=== PATIENT | female | born 1945 | race Caucasian/White ===

== ENCOUNTER 2019-02-14 06:15 | Day surgery (SDC) | payer MEDICARE, OTHER ==
[2019-02-14] MEDS ORDERED: ATORVASTATIN 80 MG TAB PO STA (06:26)
[2019-02-14] MEDS ORDERED: NITROGLYCERIN SL TABS 0.4 MG TAB SUBLINGUAL PRN ×2 (06:26→11:02)
[2019-02-14] MEDS ORDERED: ASPIRIN 325 MG TAB PO STA (06:26)
[2019-02-14] MEDS ORDERED: ALPRAZolam 0.25 MG TAB PO PRN (06:26)
[2019-02-14] MEDS ORDERED: SODIUM CHLORIDE 0.9% 1,000 ML in EMPTY BAG 1 BAG IV ONE (06:26)
[2019-02-14] MEDS ORDERED: ALPRAZolam 0.5 MG TAB PO PRN (06:26)
[2019-02-14 07:13] LABS: Glucose,Whole Blood 188 mg/dL (75-99)
[2019-02-14] MEDS ORDERED: LIDOCAINE 1% INJ 10MG/ML (20 ML MDV) ONE (09:10)
[2019-02-14] MEDS ORDERED: fentaNYL (PF) 50 MCG/ML 2 ML AMP ONE (09:43)
[2019-02-14] MEDS ORDERED: MIDAZOLAM 2 MG/2 ML VIAL IV ONE (09:45)
[2019-02-14] MEDS ORDERED: fentaNYL (PF) 50 MCG/ML 2 ML AMP IV ONE (09:46)
[2019-02-14] MEDS ORDERED: LIDOCAINE 1% INJ 10MG/ML (20 ML MDV) SQ ONE (09:47)
[2019-02-14] MEDS ORDERED: BIVALIRUDIN 250 MG in SODIUM CHLORIDE 0.9% 50 ML IV ONE (10:15)
[2019-02-14] MEDS ORDERED: BIVALIRUDIN BOLUS 250 MG/50 ML IV ONE (10:15)
[2019-02-14] MEDS ORDERED: CLOPIDOGREL 75 MG TAB ONE (10:26)
[2019-02-14] MEDS ORDERED: CLOPIDOGREL 75 MG TAB PO ONE (10:34)
[2019-02-14] MEDS ORDERED: IOPAMIDOL-370 125ML BTL INJ ONE (10:36)
[2019-02-14] MEDS ORDERED: NITROGLYCERIN 1000MCG/10ML SYRINGE INTRACORON ONE (10:36)
[2019-02-14] MEDS ORDERED: hydrALAZINE HCL 20 MG/ML 1 ML VIAL ONE (10:41)
[2019-02-14] MEDS ORDERED: hydrALAZINE HCL 20 MG/ML 1 ML VIAL IV ONE (10:43)
[2019-02-14] MEDS ORDERED: IOPAMIDOL-370 100ML BTL INJ ONE (10:44)
[2019-02-14] MEDS ORDERED: MAG HYDROX/AL HYDROX/SIMETH 30 ML CUP PO PRN (11:02)
[2019-02-14] MEDS ORDERED: RX INFO: IV CONTRAST WAS GIVEN 1 EACH MISC MISCELLANE PRN (11:02)
[2019-02-14] MEDS ORDERED: ATROPINE SULFATE 0.1 MG/ML 10ML SYRINGE IV PRN (11:02)
[2019-02-14] MEDS ORDERED: ZOLPIDEM 5 MG TAB PO PRN (11:02)
[2019-02-14] MEDS ORDERED: SODIUM CHLORIDE 0.9% 1,000 ML IV SCH (11:15)
[2019-02-14 11:34] LABS: Glucose,Whole Blood 161 mg/dL (75-99)
--- NOTE | 2019-02-14 12:21 | PTCA ---
PERCUTANEOUSTRANS CORORONARY ANGIOGRAPHY DATE OF SERVICE: 02/14/2019 PERFORMING PHYSICIAN: Aaron Benavidez MD. PROCEDURE PERFORMED: Successful stenting of the mid left anterior descending artery using 2.75 x 15 mm Xience KATEY which was post-dilated using 2.75 mm NC balloon with an excellent angiographic results and reduction of stenosis from 80% to 0%. INDICATION: This is a pleasant 73-year-old female patient who sees Dr. Chavez in the office as an outpatient with history of coronary artery disease and prior stenting of the RCA in the setting of acute coronary syndrome as well as hypertension and dyslipidemia was experiencing symptoms of chest discomfort. She underwent myocardial perfusion imaging stress test and that revealed an anterior ischemia. Because of that, the heart catheterization was advised. The patient underwent a heart catheterization by Dr. Chavez and that revealed critical disease involving the left anterior descending artery in the midportion. The decision was made toward percutaneous coronary intervention. APPROACH: Right common femoral artery. COMPLICATION: None. LEVEL OF SEDATION: Moderate with a sedation length of 23 minutes. PROCEDURE DESCRIPTION: Please refer to the diagnostic heart catheterization was performed by Dr. Chavez earlier today. Anticoagulation was initiated using Angiomax. Subsequently, I did engage the left main using JL4 guide. I did wire the LAD using a run-through wire. After that, I did PTCA ballooning using 2.5 x 12 mm balloon which was inflated under 14 atmospheres for 20 seconds. Then I deployed 2.75 x 15 mm Xience KATEY where the stent was positioned under fluoroscopy guidance and deployed under 16 atmospheres for 20 seconds. I did after that postdilatation of the stent using 2.75 x 8 mm NC balloon. The balloon was inflated under 20 atmospheres for 20 seconds. The following angiogram showed excellent angiographic results and the procedure was completed without any complication. POSTPROCEDURE MANAGEMENT: 1. Dual anti-platelet therapy. 2. Risk factors modifications. 3. Follow up with the patient. MMODL / IJN: [id number] /
[2019-02-14 14:37] VITALS: BMI 35.3
--- NOTE | 2019-02-14 16:03 | CC ---
CARDIAC CATHETERIZATION REPORT INDICATION: New onset chest discomfort with abnormal stress test involving ischemia involving anterolateral wall. PROCEDURE NOTE: After obtaining informed consent, left heart catheterization and coronary angiogram are performed via the right femoral artery using standard Denita catheters. Patient tolerated the procedure well without any obvious immediate complications. Patient received moderate conscious sedation. Total sedation time was 20 minutes. FINDINGS: 1. HEMODYNAMICS: Left ventricular end-diastolic pressure is 14-16 mm, there is no significant gradient across the aortic valve. 2. LEFT VENTRICULOGRAM: Left ventriculogram is not performed. 3. ANGIOGRAPHIC DATA: LEFT MAIN CORONARY ARTERY: Left main coronary artery appears calcified but is free of significant stenosis. Divides into left anterior descending coronary artery and circumflex coronary artery. Circumflex. coronary artery is a nondominant vessel shows 30%-40% stenosis in the proximal part. LAD is a large vessel that wraps around the apex of the heart, gives off large caliber diagonal branches. The mid LAD shows a 70% to 80% focal stenosis. Diagonal branch appears diffusely diseased. Right coronary artery appears heavily calcified with mild to moderate diffuse disease without any focal stenotic areas. The previously stented area in the right appears patent. CONCLUSION: A 70% to 80% stenosis involving mid left anterior descending artery with mild to moderate diffuse disease. PLAN: Angiographic data was reviewed by Dr. Benavidez, the on-call ip litigation associate who will perform angioplasty of the LAD at this time. MMODL / IJN: [id number] /
--- NOTE | 2019-02-14 16:03 | LTR ---
DATE OF SERVICE: 02/14/2019 RE: Dear Dr. Barrios; I performed cardiac catheterization on . A detailed catheterization note has been forwarded for your records. In brief, her cardiac catheterization revealed patent stent within the mid RCA and a new focal stenosis involving mid LAD. She will undergo angioplasty with stent placement of the LAD stenosis. Thank you for giving me the privilege of participating with this a pleasant lady. Sincerely yours, MD ESTEVAN Moore / WANG: [id number] /
[2019-02-14 20:01] VITALS: RESP 16
[2019-02-14] MEDS ORDERED: glipiZIDE 10 MG TAB PO SCH (21:00)
[2019-02-15 04:15] VITALS: BP 146/69; PULSE 67; TEMP 98.1
[2019-02-15 06:28] LABS: Glucose,Whole Blood 139 mg/dL (75-99)
[2019-02-15] MEDS ORDERED: LISINOPRIL 20 MG TAB PO SCH (09:00)
[2019-02-15] MEDS ORDERED: FUROSEMIDE 40 MG TAB PO SCH (09:00)
[2019-02-15] MEDS ORDERED: ATENOLOL 12.5 MG TAB PO SCH (09:00)
[2019-02-15] MEDS ORDERED: ASPIRIN 81 MG PO SCH (09:00)
[2019-02-15] MEDS ORDERED: LACTOBACILLUS ACIDOPH & BULGAR 1 EACH PACKET PO SCH (09:00)
[2019-02-15] MEDS ORDERED: FERROUS SULFATE 325 MG TAB PO SCH (09:00)
[2019-02-15] MEDS ORDERED: CYANOCOBALAMIN-FA-PYRIDOXINE 1 EACH TAB PO SCH (09:00)
[2019-02-15] MEDS ORDERED: POTASSIUM CHLORIDE ER 10 MEQ TAB.ER.PRT PO SCH (09:00)
[2019-02-15] MEDS ORDERED: CLOPIDOGREL 75 MG TAB PO SCH (11:03)
--- NOTE | 2019-02-15 11:12 | P.DS ---
Providers Attending physician: Mina Chavez Consults: 02/14/19 11:02 Consult Physician Routine Consulting Provider: [facility] Consult Reason/Comments: Post Interventional patient Do you want consulting provider notified?: Already Contacted Primary care physician: Last Barrios [facility] Course: This is a pleasant 73-year-old female who came in yesterday for elective cardiac catheterization secondary to chest discomfort with an abnormal stress test involving the anterolateral wall. Diagnostic cardiac catheterization revealed 30-40% stenosis in the proximal circumflex, 70-80% stenosis in the mid LAD and a heavily calcified RCA with mild to moderate diffuse disease without any focal stenotic areas. The previously stented area RCA was pain. She underwent successful stent placement to the mid LAD. She was initiated on dual antiplatelet therapy in the form of Plavix and aspirin. She is seen and examined in the chair in no acute distress. She denies symptoms of chest discomfort, shortness of breath, dizziness or palpitations. Blood pressure 146/69 heart rate 67 afebrile maintaining oxygen saturation on room air. Repeat EKG this morning reveals left bundle branch block. She is refusing to have her blood drawn this morning. GENERAL: Well-appearing, well-nourished and in no acute distress. NECK: Supple without JVD or thyromegaly. LUNGS: Breath sounds clear to auscultation bilaterally. Respiration equal and unlabored. No wheezes, rales or rhonchi. HEART: Regular rate and rhythm without murmurs, rubs or gallops. S1 and S2 heard. EXTREMITIES: Normal range of motion, no edema. No clubbing or cyanosis. Peripheral pulses intact. Right femoral access site soft, dry, intact, no hematoma, mild ecchymosis and strong distal pulses. ASSESSMENT Coronary artery disease status post successful PCI Hypertension Dyslipidemia Diabetes mellitus PLAN She has been started on Plavix and atorvastatin however she is refusing atorvastatin. Follow up in the office with Dr. Chavez next week. She has been explained the importance of dual anti-platelet therapy. Nurse Practitioner note has been reviewed, I agree with a documented findings and plan of care. Patient was seen and examined. Patient Condition at Discharge: Stable Plan - Discharge Summary Discharge Rx Participant: No New Discharge Prescriptions: New Clopidogrel [Plavix] 75 mg PO DAILY #90 tab Continue glipiZIDE [Glipizide ER] 20 mg PO QAM Ferrous Sulfate [Iron (65 MG Elemental)] 325 mg PO DAILY Furosemide [Lasix] 40 mg PO DAILY Enalapril [Vasotec] 10 mg PO BID Vitamin B Complex 1 each PO DAILY Potassium Chloride 10 meq PO DAILY L.acidoph,Paracasei, B.lactis [Probiotic] 1 each PO DAILY Atenolol 12.5 mg PO QAM Aspirin [Adult Low Dose Aspirin EC] 81 mg PO DAILY Discharge Medication List glipiZIDE [Glipizide ER] 20 mg PO QAM 01/08/14 [History] Aspirin [Adult Low Dose Aspirin EC] 81 mg PO DAILY 02/12/19 [History] Atenolol 12.5 mg PO QAM 02/12/19 [History] Enalapril [Vasotec] 10 mg PO BID 02/12/19 [History] Ferrous Sulfate [Iron (65 MG Elemental)] 325 mg PO DAILY 02/12/19 [History] Furosemide [Lasix] 40 mg PO DAILY 02/12/19 [History] L.acidoph,Paracasei, B.lactis [Probiotic] 1 each PO DAILY 02/12/19 [History] Potassium Chloride 10 meq PO DAILY 02/12/19 [History] Vitamin B Complex 1 each PO DAILY 02/12/19 [History] Clopidogrel [Plavix] 75 mg PO DAILY #90 tab 02/15/19 [Rx] Follow up Appointment(s)/Referral(s): Mina Chavez MD [STAFF PHYSICIAN] - 02/21/19 9:45 am (Tuesday) Patient Instructions/Handouts: *[facility] - After Heart Catheterization - Gas Appliance Adjuster Instructions, Left Heart Catheterization (DC) Discharge Disposition: HOME SELF-CARE
== END 2019-02-15 08:56 | disposition home or self-care (01) ==
LOC: CATHCVL 06:15 → 3SCARD 13:58 → CATHCVL 02-15 08:56
PROVIDERS: ATTEND Internal Medicine Cardiovascular Disease
DX: I25.110 Atherosclerotic heart disease of native coronary artery with unstable angina pectoris (principal); I44.7 Left bundle-branch block, unspecified; I10 Essential (primary) hypertension; E78.5 Hyperlipidemia, unspecified; E11.9 Type 2 diabetes mellitus without complications; Z79.82 Long term (current) use of aspirin; Z79.84 Long term (current) use of oral hypoglycemic drugs; Z79.899 Other long term (current) drug therapy; Z88.0 Allergy status to penicillin; Z88.1 Allergy status to other antibiotic agents; Z88.8 Allergy status to other drugs, medicaments and biological substances; Z87.891 Personal history of nicotine dependence; Z95.5 Presence of coronary angioplasty implant and graft
CPT/HCPCS: 93458; C9600; C1769 ×3; C1887; C1725 ×2; C1894; C1874; J2250; J0360; J2001; J3010; J0583; Q9967 ×2

== ENCOUNTER 2019-06-29 08:28 | Inpatient (IN) | payer MEDICARE, OTHER ==
[2019-06-29] MEDS ORDERED: ASPIRIN 325 MG TAB PO STA (08:32)
[2019-06-29] MEDS ORDERED: NITROGLYCERIN-D5W PMX 50 MG in DEXTROSE/WATER 1 250ML.BAG IV ONE (08:32)
--- NOTE | 2019-06-29 08:43 | ED ---
General Adult HPI - General Stated complaint: SOB Time Seen by Provider: 06/29/19 08:30 Source: patient, EMS, RN notes reviewed, old records reviewed - History of Present Illness Initial comments: 74-year-old female presenting for dyspnea. Patient is in moderate respiratory distress prior arrival. History is limited secondary to respiratory distress. She states that over the past several days she's noticed increased lower e xtremity edema. She describes proximally 12-18 hours of worsening dyspnea. She has orthopnea. She denies cough. Denies fever. Denies pain complaints. - Related Data Home Medications Medication Instructions Recorded Confirmed glipiZIDE [Glipizide ER] 20 mg PO QAM 01/08/14 02/14/19 Aspirin [Adult Low Dose Aspirin EC] 81 mg PO DAILY 02/12/19 02/14/19 Atenolol 12.5 mg PO QAM 02/12/19 02/14/19 Enalapril [Vasotec] 10 mg PO BID 02/12/19 02/14/19 Ferrous Sulfate [Iron (65 MG 325 mg PO DAILY 02/12/19 02/14/19 Elemental)] Furosemide [Lasix] 40 mg PO DAILY 02/12/19 02/14/19 L.acidoph,Paracasei, B.lactis 1 each PO DAILY 02/12/19 02/14/19 [Probiotic] Potassium Chloride 10 meq PO DAILY 02/12/19 02/14/19 Vitamin B Complex 1 each PO DAILY 02/12/19 02/14/19 Previous Rx's Medication Instructions Recorded Clopidogrel [Plavix] 75 mg PO DAILY #90 tab 02/15/19 Allergies Allergy/AdvReac Type Severity Reaction Status Date / Time Corticosteroids Allergy Unknown Unknown Verified 02/14/19 07:03 (Glucocorticoids) azithromycin [From Zithromax] Allergy Anaphylaxis Verified 02/14/19 07:03 banana Allergy Unknown Verified 02/14/19 07:03 carisoprodol [From Soma] Allergy Unknown Verified 02/14/19 07:03 ciprofloxacin [From Cipro] Allergy Unknown Verified 02/14/19 07:03 cortisone [Cortisone] Allergy Unknown Verified 02/14/19 07:03 cyclobenzaprine HCl Allergy Unknown Verified 02/14/19 07:03 [From Flexeril] egg Allergy Unknown Verified 02/14/19 07:03 latex Allergy Unknown Verified 02/14/19 07:03 Latex, Natural Rubber Allergy Unknown Verified 02/14/19 07:03 levofloxacin [From Levaquin] Allergy Anaphylaxis Verified 02/14/19 07:03 Penicillins Allergy Anaphylaxis Verified 02/14/19 07:03 Review of Systems ROS Statement: Those systems with pertinent positive or pertinent negative responses have been documented in the HPI. ROS Other: All systems not noted in ROS Statement are negative. Limitations: ROS unobtainable due to patients medical condition Past Medical History Past Medical History: Chest Pain / Angina, Diabetes Mellitus, Hypertension, Myocardial Infarction ([place]), Osteoarthritis (OA) Additional Past Medical History / Comment(s): arthritis, 01-03-[address]/resp failure/mi post intubation came from [facility] to our [facility] lab[facility] 01-07-14. Last Myocardial Infarction Date:: 01-03-14 History of Any Multi-Drug Resistant Organisms: None Reported Past Surgical History: Heart Catheterization With Stent Additional Past Surgical History / Comment(s): d&c, stent rca 01-07-14 Past Anesthesia/Blood Transfusion Reactions: No Reported Reaction Date of Last Stent Placement:: 2013 Past Psychological History: No Psychological Hx Reported Smoking Status: Former smoker Past Alcohol Use History: None Reported Additional Past Alcohol Use History / Comment(s): started smoking at age 27, smoked 1/2 ppd quit 2002. Past Drug Use History: None Reported - Past Family History Father Family Medical History: Cancer, Diabetes Mellitus Additional Family Medical History / Comment(s): age 70 from lung cancer Mother Additional Family Medical History / Comment(s): age 83 emphysema General Exam General appearance: alert, in no apparent distress Head exam: Present: atraumatic, normocephalic Eye exam: Present: normal appearance, PERRL Neck exam: Present: normal inspection Respiratory exam: Present: respiratory distress, rales, accessory muscle use, decreased breath sounds Cardiovascular Exam: Present: regular rate, normal rhythm GI/Abdominal exam: Present: soft. Absent: distended, tenderness, guarding Extremities exam: Present: pedal edema Neurological exam: Present: alert, oriented X3 Psychiatric exam: Present: anxious Skin exam: Present: warm, dry, intact. Absent: cyanosis, diaphoretic Course Vital Signs 06/29/19 06/29/19 08:45 09:07 Temperature 97.8 F Pulse Rate 98 96 Respiratory 24 28 H Rate Blood Pressure 200/116 169/96 O2 Sat by Pulse 96 99 Oximetry - Reevaluation(s) Reevaluation #1: 06/29/19 10:04 Much improved respiratory status, again no chest pain at any point in the past 24 hours or while in the emergency department. Reevaluation #2: 06/29/19 10:05 Case discussed with cardiology, Dr. Art, agree with heparin and nitroglyceri n. EKG Findings - EKG Comments: EKG Findings:: EKG: Sinus tachycardia, left bundle branch block, history of left bundle branch block, rate of 114, OR interval 156, QRS duration 136, QTC 476, precordial ST segment elevation in the setting of left bundle branch block Medical Decision Making - Medical Decision Making 74 present with dyspnea, history concerning for CHF. Patient has bilateral Rales on exam. She is afebrile with no cough. She has pitting edema in the lower extremities. She is placed on BiPAP for work of breathing and hypoxia. She has improved respiratory status with BiPAP. She has an EKG showing a left bundle branch block with history of left bundle branch block. She has leukocytosis white count of 15 and x-ray showing pneumonia versus CHF. She is initiated on antibiotics she is declining all antibiotics with the exception of doxycycline. I had initially ordered Levaquin and she refuses medication she states she has multiple drug ALLERGIES but is uncertain of symptoms during these reactions. She's given aspirin, Lasix. She started on nitroglycerin and heparin in the emergency department discussed case with Dr. Barrios and with Dr. Art. She will be admitted for respiratory support, treatment of pneumonia and CHF and trending of her elevated troponin at 0.45. She has no active chest pain. COVID test pending. Diagnosis: CHF, NSTEMI, PNA - Lab Data Result diagrams: 06/29/19 09:00 06/29/19 09:00 Lab Results 06/29/19 06/29/19 06/29/19 Range/Units 09:00 09:00 09:00 WBC 15.8 H (3.8-10.6) k/uL RBC 4.26 (3.80-5.40) m/uL Hgb 12.3 (11.4-16.0) gm/dL Hct 38.1 (34.0-46.0) % MCV 89.4 (80.0-100.0) fL MCH 28.8 (25.0-35.0) pg MCHC 32.2 (31.0-37.0) g/dL RDW 12.9 (11.5-15.5) % Plt Count 202 (150-450) k/uL Neutrophils % 69 % Lymphocytes % 18 % Monocytes % 8 % Eosinophils % 2 % Basophils % 0 % Neutrophils # 10.9 H (1.3-7.7) k/uL Lymphocytes # 2.9 (1.0-4.8) k/uL Monocytes # 1.2 H (0-1.0) k/uL Eosinophils # 0.4 (0-0.7) k/uL Basophils # 0.0 (0-0.2) k/uL PT 10.4 (9.0-12.0) sec INR 1.0 (<1.2) APTT 21.0 L (22.0-30.0) sec Sodium 130 L (137-145) mmol/L Potassium 6.0 H (3.5-5.1) mmol/L Chloride 99 (98-107) mmol/L Carbon Dioxide 18 L (22-30) mmol/L Anion Gap 13 mmol/L BUN 29 H (7-17) mg/dL Creatinine 0.96 (0.52-1.04) mg/dL Est GFR (CKD-EPI)AfAm 67 (>60 ml/min/1.73 sqM) Est GFR (CKD-EPI)NonAf 58 (>60 ml/min/1.73 sqM) Glucose 299 H (74-99) mg/dL Plasma Lactic Acid Jona (0.7-2.0) mmol/L Calcium 8.9 (8.4-10.2) mg/dL Magnesium 2.0 (1.6-2.3) mg/dL Total Bilirubin 1.8 H (0.2-1.3) mg/dL AST 80 H (14-36) U/L ALT 38 H (4-34) U/L Alkaline Phosphatase 101 (38-126) U/L Troponin I (0.000-0.034) ng/mL NT-Pro-B Natriuret Pep pg/mL Total Protein 7.3 (6.3-8.2) g/dL Albumin 4.3 (3.5-5.0) g/dL 06/29/19 06/29/19 06/29/19 Range/Units 09:00 09:00 09:00 WBC (3.8-10.6) k/uL RBC (3.80-5.40) m/uL Hgb (11.4-16.0) gm/dL Hct (34.0-46.0) % MCV (80.0-100.0) fL MCH (25.0-35.0) pg MCHC (31.0-37.0) g/dL RDW (11.5-15.5) % Plt Count (150-450) k/uL Neutrophils % % Lymphocytes % % Monocytes % % Eosinophils % % Basophils % % Neutrophils # (1.3-7.7) k/uL Lymphocytes # (1.0-4.8) k/uL Monocytes # (0-1.0) k/uL Eosinophils # (0-0.7) k/uL Basophils # (0-0.2) k/uL PT (9.0-12.0) sec INR (<1.2) APTT (22.0-30.0) sec Sodium (137-145) mmol/L Potassium (3.5-5.1) mmol/L Chloride (98-107) mmol/L Carbon Dioxide (22-30) mmol/L Anion Gap mmol/L BUN (7-17) mg/dL Creatinine (0.52-1.04) mg/dL Est GFR (CKD-EPI)AfAm (>60 ml/min/1.73 sqM) Est GFR (CKD-EPI)NonAf (>60 ml/min/1.73 sqM) Glucose (74-99) mg/dL Plasma Lactic Acid Jona 1.7 (0.7-2.0) mmol/L Calcium (8.4-10.2) mg/dL Magnesium (1.6-2.3) mg/dL Total Bilirubin (0.2-1.3) mg/dL AST (14-36) U/L ALT (4-34) U/L Alkaline Phosphatase (38-126) U/L Troponin I 0.450 H* (0.000-0.034) ng/mL NT-Pro-B Natriuret Pep 2220 pg/mL Total Protein (6.3-8.2) g/dL Albumin (3.5-5.0) g/dL Critical Care Time Critical Care Time: Yes Total Critical Care Time: 35 Disposition Clinical Impression: Congestive heart failure, Community acquired pneumonia, NSTEMI (non-ST elevated myocardial infarction) Disposition: [facility] Condition: Serious Is patient prescribed a controlled substance at d/c from ED?: No Referrals: Last Barrios MD [Primary Care Provider] - 1-2 days Decision to Admit Reason: Admit from EC Decision Date: 06/29/19 Decision Time: 10:11
[2019-06-29 09:12] LABS: Basophils % (A) 0 %; Eosinophils # (A) 0.4 k/uL (0-0.7); Eosinophils % (A) 2 %; HCT 38.1 % (34.0-46.0); HGB 12.3 gm/dL (11.4-16.0); Lymphocytes # (A) 2.9 k/uL (1.0-4.8); Lymphocytes % (A) 18 %; MCH 28.8 pg (25.0-35.0); MCHC 32.2 g/dL (31.0-37.0); MCV 89.4 fL (80.0-100.0); Mean Platelet Volume 9.9; Monocytes # (A) 1.2 k/uL (0-1.0); Monocytes % (A) 8 %; Neutrophils # (A) 10.9 k/uL (1.3-7.7); Neutrophils % (A) 69 %; Platelet Count 202 k/uL (150-450); RBC 4.26 m/uL (3.80-5.40); RDW 12.9 % (11.5-15.5); WBC 15.8 k/uL (3.8-10.6)
[2019-06-29 09:31] LABS: Albumin 4.3 g/dL (3.5-5.0); Calcium 8.9 mg/dL (8.4-10.2); Total Bilirubin 1.8 mg/dL (0.2-1.3); Total Protein 7.3 g/dL (6.3-8.2)
--- NOTE | 2019-06-29 09:41 | XR ---
EXAMINATION TYPE: XR chest 1V portable DATE OF EXAM: 06/29/2019 COMPARISON: Prior chest x-ray 01/09/2014 HISTORY: Difficulty breathing TECHNIQUE: Single frontal view of the chest is obtained. FINDINGS: Patient is rotated, there are overlying cardiac leads and low lung volumes. Aorta is dense . Heart is likely within normal limits. There is no evident pneumothorax or pleural effusion. Strand- like areas of increased attenuation are present, question some patchy bibasilar increased density. IMPRESSION: Difficult to exclude an underlying pneumonia. Consider follow-up PA and lateral chest x- ray for better evaluation.
[2019-06-29] MEDS ORDERED: FUROSEMIDE 10 MG/ML 4 ML VIAL IV STA (09:42)
[2019-06-29 09:48] LABS: Prothrombin Time 10.4 sec (9.0-12.0)
[2019-06-29] MEDS: LEVOFLOXACIN 500MG-D5W PMX 500 MG in DEXTROSE/WATER 1 100ML.BAG IVPB STA ×2 (09:52→09:58)
[2019-06-29] MEDS ORDERED: HEPARIN SODIUM,PORCINE 5,000 UNIT/ML 1 ML VIAL IV PRN (09:56)
[2019-06-29] MEDS ORDERED: HEPARIN SODIUM,PORCINE 5,000 UNIT/ML 1 ML VIAL IV ONE (09:56)
[2019-06-29] MEDS ORDERED: DOXYCYCLINE 100 MG in SODIUM CHLORIDE 0.9% 100 ML IVPB ONE (10:00)
[2019-06-29] MEDS ORDERED: ACETAMINOPHEN TAB 325 MG TAB PO PRN (10:06)
[2019-06-29] MEDS ORDERED: NALOXONE 0.4 MG/ML 1 ML VIAL IV PRN (10:06)
[2019-06-29] MEDS: HEPARIN SOD,PORK IN 0.45% NACL 25,000 UNIT in 0.45% NACL 1 250ML.BAG IV SCH (10:21)
[2019-06-29] MEDS ORDERED: ATENOLOL 25 MG TAB PO SCH (12:15)
[2019-06-29] MEDS ORDERED: SODIUM POLYSTYRENE SULFONATE 15 GM/60 ML BOTTLE PO STA (12:18)
[2019-06-29] MEDS ORDERED: POTASSIUM CHLORIDE ER 10 MEQ TAB.ER.PRT PO SCH (12:30)
[2019-06-29] MEDS: hydrALAZINE HCL 50 MG TAB PO SCH ×4 (12:37→21:51)
[2019-06-29] MEDS ORDERED: LISINOPRIL 20 MG TAB PO SCH (13:00)
[2019-06-29] MEDS: glipiZIDE 10 MG TAB PO SCH ×2 (13:23→16:58)
[2019-06-29] MEDS: CLOPIDOGREL 75 MG TAB PO SCH (13:24)
[2019-06-29] MEDS: METOPROLOL TARTRATE 25 MG TAB PO SCH ×3 (13:25→21:51)
--- NOTE | 2019-06-29 14:24 | P.CRDCN ---
History of Present Illness History of present illness: HISTORY OF PRESENTING ILLNESS This is a pleasant 74-year-old female past medical history significant for coronary artery disease with myocardial infarction and PCI of the RCA then PCI of the mid LAD in February 2019, diabetes mellitus, hypertension, left bundle branch block, ischemic cardiomyopathy, chronic systolic heart failure and arthritis. She follows in the office with Dr. Chavez. We have been asked to see in consultation for shortness of breath and elevated troponin. She states she woke up at 0330 with significant shortness of breath. However she was able to get through it by drinking a cup of tea. Then again at 0730 she woke up acutely short of breath. The shortness of breath felt similar to how she felt when she had an IA in 2013. She had no chest pain, dizziness or palpitations. On arrival to ED bipap was placed and she states she started feeling better. Currently she is maintaining oxygen saturation on nasal cannula and feels quite comfortable. She was also initiated on nitro and heparin infusions. Most recent echocardiogram in the office 2014 reveals impaired LV systolic function with EF 40% with inferior hypokinesia. DIAGNOSTICS EKG reveals left bundle branch block with underlying sinus mechanism. Heart rate 114. Chest xray patchy bibasliar increased density and increased attenuation. Laboratory reviewed, WBC 15.8, hgb 12.3, plt 202, sodium 130, potassium 6.0, creatinine 0.96, total billirubin 1.8, AST 80, ALT 38, troponin 0.450, NTproBNP 2220 and COVID-19 negative. Current cardiac medications include enalapril 10 mg BID, plavix 75 mg daily, atenolol 12.5 daily, potassium 10 MEQ daily and lasix 40 mg daily. REVIEW OF SYSTEMS At the time of my exam: CONSTITUTIONAL: Denies fever or chills. CARDIOVASCULAR: Denies chest pain, shortness of breath, orthopnea, PND or palpitations. RESPIRATORY: Denies cough. GASTROINTESTINAL: Denies abdominal pain, diarrhea, constipation, nausea or vomiting. MUSCULOSKELETAL: Denies myalgias. NEUROLOGIC: Denies numbness, tingling or weakness. ENDOCRINE: Denies fatigue, weight change, polydipsia or polyurina. GENITOURINARY: Denies burning, hematuria or urgency with micturation. HEMATOLOGIC: Denies history of anemia or bleeding. PHYSICAL EXAMINATION Blood pressure 156/70 heart rate 89 afebrile and maintaining oxygen saturation on nasal cannula. CONSTITUTIONAL: No apparent distress. HEENT: Head is normocephalic. Pupils are equal, round. Sclerae anicteric. Mucous membranes of the mouth are moist. No JVD. No carotid bruit. CHEST EXAMINATION: Bibasliar rales, no wheezes or rhonchi. No chest wall tenderness is noted on palpation or with deep breathing. HEART EXAMINATION: Regular rate and rhythm. S1, S2 heard. Systolic ejection murmur at the left sternal border, no gallops or rub. ABDOMEN: Soft, nontender. Positive bowel sounds. EXTREMITIES: 2+ peripheral pulses, 1+ bilateral lower extremity pitting edema and no calf tenderness. NEUROLOGIC EXAMINATION: Patient is awake, alert and oriented x3. ASSESSMENT Acute on chronic systolic heart failure secondary to myocardial ischemia Non-ST elevated myocardial infarction, asymptomatic and improved with oxygen Hyperkalemia Leukocytosis Hypertensive urgency Ischemic cardiomyopathy Coronary artery disease s/p recent PCI of the mid LAD 02/2019. Maintained on dual anti-platelet therapy and she is compliant Diabetes mellitus Obesity, BMI 36 PLAN Given kaexylate 30 gm PO now x1. Repeat potassium in 4 hours. Repeat BMP in the morning. Hold enalapril. Initiate hydralazine 50 mg TID and change beta chely to lopressor 25 mg BID. Resume aspirin and plavix as previously ordered. Increase lasix to TID dosing. Continue heparin and nitroglycerin infusion. Repeat 2D echocardiogram and doppler study to assess cardiac structure and funct ion. Discussed with the patient the need for possible cardiac catheterization, further decision will be made tomorrow. She is currently asymptomatic and stable. Thank you kindly for this consultation. Nurse Practitioner note has been reviewed, I agree with a documented findings and plan of care. Patient was seen and examined. 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 Last Myocardial Infarction Date:: 01-03-14 History of Any Multi-Drug Resistant Organisms: None Reported Past Surgical History: Heart Catheterization With Stent Additional Past Surgical History / Comment(s): d&c, stent rca 01-07-14 Past Anesthesia/Blood Transfusion Reactions: No Reported Reaction Date of Last Stent Placement:: 2013 Past Psychological History: No Psychological Hx Reported Smoking Status: Former smoker Past Alcohol Use History: None Reported Additional Past Alcohol Use History / Comment(s): started smoking at age 27, smoked 1/2 ppd quit 2002. Past Drug Use History: None Reported - Past Family History Father Family Medical History: Cancer, Diabetes Mellitus Additional Family Medical History / Comment(s): age 70 from lung cancer Mother Additional Family Medical History / Comment(s): age 83 emphysema Medications and Allergies Home Medications Medication Instructions Recorded Confirmed Type glipiZIDE [Glipizide ER] 20 mg PO QAM 01/08/14 06/29/19 History Atenolol 12.5 mg PO DAILY 02/12/19 06/29/19 History Enalapril [Vasotec] 10 mg PO BID 02/12/19 06/29/19 History Ferrous Sulfate [Iron (65 MG 325 mg PO DAILY 02/12/19 06/29/19 History Elemental)] Furosemide [Lasix] 40 mg PO DAILY 02/12/19 06/29/19 History Potassium Chloride 10 meq PO DAILY 02/12/19 06/29/19 History Clopidogrel [Plavix] 75 mg PO DAILY #90 tab 02/15/19 06/29/19 Rx Cholecalciferol [Vitamin D3] 2,000 unit PO DAILY@1200 06/29/19 06/29/19 History Cyanocobalamin (Vitamin B-12) 1,000 mcg PO DAILY 06/29/19 06/29/19 History [Vitamin B-12] Allergies Allergy/AdvReac Type Severity Reaction Status Date / Time Corticosteroids Allergy Unknown Unknown Verified 06/29/19 10:45 (Glucocorticoids) azithromycin [From Zithromax] Allergy Anaphylaxis Verified 06/29/19 10:45 banana Allergy Unknown Verified 06/29/19 10:45 carisoprodol [From Soma] Allergy Unknown Verified 06/29/19 10:45 ciprofloxacin [From Cipro] Allergy Unknown Verified 06/29/19 10:45 cortisone [Cortisone] Allergy Unknown Verified 06/29/19 10:45 cyclobenzaprine HCl Allergy Unknown Verified 06/29/19 10:45 [From Flexeril] egg Allergy Unknown Verified 06/29/19 10:45 latex Allergy Unknown Verified 06/29/19 10:45 Latex, Natural Rubber Allergy Unknown Verified 06/29/19 10:45 levofloxacin [From Levaquin] Allergy Anaphylaxis Verified 06/29/19 10:45 Penicillins Allergy Anaphylaxis Verified 06/29/19 10:45 Physical Exam Vitals: Vital Signs Temp Pulse Resp BP Pulse Ox 06/29/19 10:24 98.0 F 83 18 151/66 100 06/29/19 09:07 96 28 H 169/96 99 06/29/19 08:45 97.8 F 98 24 200/116 96 Intake and Output 06/28/19 06/29/19 06/29/19 22:59 06:59 14:59 Other: Weight 83.915 kg Results 06/29/19 09:00 06/29/19 09:00 Cardiac Enzymes 06/29/19 06/29/19 Range/Units 09:00 09:00 AST 80 H (14-36) U/L Troponin I 0.450 H* (0.000-0.034) ng/mL Coagulation 06/29/19 Range/Units 09:00 PT 10.4 (9.0-12.0) sec APTT 21.0 L (22.0-30.0) sec CBC 06/29/19 Range/Units 09:00 WBC 15.8 H (3.8-10.6) k/uL RBC 4.26 (3.80-5.40) m/uL Hgb 12.3 (11.4-16.0) gm/dL Hct 38.1 (34.0-46.0) % Plt Count 202 (150-450) k/uL Comprehensive Metabolic Panel 06/29/19 Range/Units 09:00 Sodium 130 L (137-145) mmol/L Potassium 6.0 H (3.5-5.1) mmol/L Chloride 99 (98-107) mmol/L Carbon Dioxide 18 L (22-30) mmol/L BUN 29 H (7-17) mg/dL Creatinine 0.96 (0.52-1.04) mg/dL Glucose 299 H (74-99) mg/dL Calcium 8.9 (8.4-10.2) mg/dL AST 80 H (14-36) U/L ALT 38 H (4-34) U/L Alkaline Phosphatase 101 (38-126) U/L Total Protein 7.3 (6.3-8.2) g/dL Albumin 4.3 (3.5-5.0) g/dL Current Medications Generic Name Dose Route Start Last Admin Trade Name Freq PRN Reason Stop Dose Admin Acetaminophen 650 mg 06/29/19 10:06 Tylenol Tab PO Q6HR PRN Mild Pain or Fever > 100.5 Aspirin 81 mg 06/30/19 09:00 Aspirin PO DAILY [facility] Atenolol 12.5 mg 06/29/19 12:15 Tenormin PO DAILY [facility] Clopidogrel Bisulfate 75 mg 06/29/19 12:15 Plavix PO DAILY [facility] Furosemide 40 mg 06/29/19 21:00 Lasix IV Q12HR [facility] Heparin Sodium (Porcine) 0 unit 06/29/19 09:56 Heparin IV PER PROTOCOL PRN Low PTT Protocol Nitroglycerin/Dextrose 50 mg/ 250 mls @ 1.5 mls/hr 06/29/19 08:32 06/29/19 09:04 IV Solution IV 06/30/19 08:31 5 mcg/min .Q24H ONE 1.5 mls/hr Administration Protocol 5 MCG/MIN Heparin Sodium/Sodium Chloride 250 mls @ 9.986 mls/hr 06/29/19 10:00 06/29/19 10:21 25,000 unit/ Sodium Chloride IV 11.9 units/kg/hr .Q24H GARRY 9.986 mls/hr Administration Protocol 11.9 UNITS/KG/HR Doxycycline Hyclate 100 mg/ 100 mls @ 100 mls/hr 06/29/19 21:00 Sodium Chloride IVPB Q12HR [facility] Naloxone HCl 0.2 mg 06/29/19 10:06 Narcan IV Q2M PRN Opioid Reversal Non-Formulary Medication 20 mg 06/29/19 12:15 Glipizide [Glipizide Er] PO QAM [facility] Intake and Output 06/28/19 06/29/19 06/29/19 22:59 06:59 14:59 Other: Weight 83.915 kg Patient Weight 06/30/19 06:59 Weight 83.915 kg 06/29/19 09:00 06/29/19 09:00
--- NOTE | 2019-06-29 15:32 | ECHOF ---
Referral Reason:cp, elev trop MEASUREMENTS -------- HEIGHT: 154.9 cm WEIGHT: 83.9 kg BP: RVIDd: 2.0 cm (< 3.3) IVSd: 0.7 cm (0.6 - 1.1) LVIDd: 4.3 cm (3.9 - 5.3) LVPWd: 1.0 cm (0.6 - 1.1) IVSs: 1.1 cm LVIDs: 3.4 cm LVPWs: 0.9 cm LAESV Index (A-L): 33.65 ml/m MV E Rafael: 1.13 m/s MV DecT: 163 ms MV A Rafael: 1.10 m/s MV E/A Ratio: 1.02 RAP: 5.00 mmHg RVSP: 45.65 mmHg FINDINGS -------- Sinus rhythm. This was a technically adequate study. The left ventricular size is normal. There is mild concentric left ventricular hypertrophy. There is severe global hypokinesis of LV . Overall left ventricular systolic function is severely impair ed with, an EF between 25 - 30 %. The right ventricle is normal in size. LA is moderately dilated 34-39 ml/m2 The right atrial size is normal. The aortic valve was not well visualized. Moderate mitral annular calcification present. Elwoiran-[id number] mitral regurgitation is present. The tricuspid valve appears structurally normal. Moderate tricuspid regurgitation present. There is mild to moderate pulmonary hypertension. The right ventricular systolic pressure, as measured by Doppler, is 45.65mmHg. There is no pulmonic regurgitation present. The aortic root size is normal. IVC Not well visulized. There is a small, generalized pericardial effusion present. CONCLUSIONS -------- 1. There is mild concentric left ventricular hypertrophy. 2. There is severe global hypokinesis of LV . 3. Overall left ventricular systolic function is severely impaired with, an EF between 25 - 30 %. 4. LA is moderately dilated 34-39 ml/m2 5. The aortic valve was not well visualized. 6. Moderate mitral annular calcification present. 7. Eblibvkz-tz-jmqqft mitral regurgitation is present. 8. Moderate tricuspid regurgitation present. 9. There is mild to moderate pulmonary hypertension. 10. There is a small, generalized pericardial effusion present. JINRIKISHA DRIVER: Sylvia Gonzalez RDCS
[2019-06-29] MEDS: FUROSEMIDE 10 MG/ML 4 ML VIAL IV SCH ×2 (15:39→23:07)
[2019-06-29 20:35] LABS: Glucose,Whole Blood 151 mg/dL (75-99)
[2019-06-29] MEDS ORDERED: FUROSEMIDE 10 MG/ML 4 ML VIAL IV SCH (21:00)
--- NOTE | 2019-06-29 21:38 | P.HPIM ---
History of Present Illness H&P Date: 06/29/19 Chief Complaint: SOB Shortness of breath for the last 2 days. She did actually eat excessive salt for . His could be a culprit. She is fairly compliant with her medication. But given her inability to breathe she was appropriately admitted after having signs of congestive heart failure versus pneumonia. She states no fever or chills. No cough but more dyspnea and edema. Review of Systems Constitutional: Denies chills, Denies fever Eyes: denies blurred vision, denies pain Ears, nose, mouth and throat: Denies headache, Denies sore throat Cardiovascular: Reports dyspnea on exertion, Reports edema Respiratory: Denies cough Gastrointestinal: Denies abdominal pain, Denies diarrhea, Denies nausea, Denies vomiting Genitourinary: Denies dysuria, Denies hematuria Musculoskeletal: Denies myalgias Past Medical History Past Medical History: Chest Pain / Angina, Diabetes Mellitus, Hypertension, Myocardial Infarction ([place]), Osteoarthritis (OA) Additional Past Medical History / Comment(s): arthritis, 01-03-14 cardiac arrest/resp failure/mi post intubation came from [facility] 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 Last Myocardial Infarction Date:: 01-03-14 History of Any Multi-Drug Resistant Organisms: None Reported Past Surgical History: Heart Catheterization With Stent Additional Past Surgical History / Comment(s): d&c, stent rca 01-07-14 Past Anesthesia/Blood Transfusion Reactions: No Reported Reaction Date of Last Stent Placement:: 2013 Past Psychological History: No Psychological Hx Reported Smoking Status: Former smoker Past Alcohol Use History: None Reported Additional Past Alcohol Use History / Comment(s): started smoking at age 27, smoked 1/2 ppd quit 2002. Past Drug Use History: None Reported - Past Family History Father Family Medical History: Cancer, Diabetes Mellitus Additional Family Medical History / Comment(s): age 70 from lung cancer Mother Additional Family Medical History / Comment(s): age 83 emphysema Medications and Allergies Home Medications Medication Instructions Recorded Confirmed Type glipiZIDE [Glipizide ER] 20 mg PO QAM 01/08/14 06/29/19 History Atenolol 12.5 mg PO DAILY 02/12/19 06/29/19 History Enalapril [Vasotec] 10 mg PO BID 02/12/19 06/29/19 History Ferrous Sulfate [Iron (65 MG 325 mg PO DAILY 02/12/19 06/29/19 History Elemental)] Furosemide [Lasix] 40 mg PO DAILY 02/12/19 06/29/19 History Potassium Chloride 10 meq PO DAILY 02/12/19 06/29/19 History Clopidogrel [Plavix] 75 mg PO DAILY #90 tab 02/15/19 06/29/19 Rx Cholecalciferol [Vitamin D3] 2,000 unit PO DAILY@1200 06/29/19 06/29/19 History Cyanocobalamin (Vitamin B-12) 1,000 mcg PO DAILY 06/29/19 06/29/19 History [Vitamin B-12] Allergies Allergy/AdvReac Type Severity Reaction Status Date / Time Corticosteroids Allergy Unknown Unknown Verified 06/29/19 10:45 (Glucocorticoids) azithromycin [From Zithromax] Allergy Anaphylaxis Verified 06/29/19 10:45 banana Allergy Unknown Verified 06/29/19 10:45 carisoprodol [From Soma] Allergy Unknown Verified 06/29/19 10:45 ciprofloxacin [From Cipro] Allergy Unknown Verified 06/29/19 10:45 cortisone [Cortisone] Allergy Unknown Verified 06/29/19 10:45 cyclobenzaprine HCl Allergy Unknown Verified 06/29/19 10:45 [From Flexeril] egg Allergy Unknown Verified 06/29/19 10:45 latex Allergy Unknown Verified 06/29/19 10:45 Latex, Natural Rubber Allergy Unknown Verified 06/29/19 10:45 levofloxacin [From Levaquin] Allergy Anaphylaxis Verified 06/29/19 10:45 Penicillins Allergy Anaphylaxis Verified 06/29/19 10:45 Physical Exam Vitals: Vital Signs Temp Pulse Pulse Pulse Resp BP BP 06/29/19 16:00 97.9 F 138 H 144 H 18 123/64 06/29/19 12:58 98 F 89 20 156/70 06/29/19 10:24 98.0 F 83 18 151/66 06/29/19 09:07 96 28 H 169/96 06/29/19 08:45 97.8 F 98 24 200/116 Pulse Ox 06/29/19 16:00 100 06/29/19 12:58 100 06/29/19 10:24 100 06/29/19 09:07 99 06/29/19 08:45 96 Intake and Output 06/29/19 06/29/19 06/29/19 06:59 14:59 22:59 Intake Total 66.074 Output Total 500 Balance -433.926 Intake: Intake, IV Titration 66.074 Amount Heparin Sod,Pork in 0.45% 66.074 NaCl 25,000 unit In 0.45 % NaCl 1 250ml.bag @ 11.9 UNITS/KG/HR 9.986 mls/hr IV .Q24H [facility] Rx#: [id number] Output: Urine 500 Other: Weight 83.915 kg 85.6 kg - Constitutional General appearance: no acute distress - EENT Eyes: EOMI - Neck Neck: no lymphadenopathy - Respiratory Respiratory: bilateral: diminished - Cardiovascular Rhythm: regular Abnormal Heart Sounds: no S3 Gallop - Gastrointestinal General gastrointestinal: soft, no tenderness - Musculoskeletal Musculoskeletal: strength equal bilaterally - Psychiatric Psychiatric: A&O x's 3, appropriate affect, intact judgment & insight Results CBC & Chem 7: 06/29/19 09:00 06/29/19 17:50 Labs: Abnormal Lab Results - Last 24 Hours (Table) 06/29/19 06/29/19 06/29/19 Range/Units 09:00 09:00 09:00 WBC 15.8 H (3.8-10.6) k/uL Neutrophils # 10.9 H (1.3-7.7) k/uL Monocytes # 1.2 H (0-1.0) k/uL APTT 21.0 L (22.0-30.0) sec Sodium 130 L (137-145) mmol/L Potassium 6.0 H (3.5-5.1) mmol/L Carbon Dioxide 18 L (22-30) mmol/L BUN 29 H (7-17) mg/dL Glucose 299 H (74-99) mg/dL POC Glucose (mg/dL) (75-99) mg/dL Total Bilirubin 1.8 H (0.2-1.3) mg/dL AST 80 H (14-36) U/L ALT 38 H (4-34) U/L Troponin I (0.000-0.034) ng/mL 06/29/19 06/29/19 06/29/19 Range/Units 09:00 15:10 15:10 WBC (3.8-10.6) k/uL Neutrophils # (1.3-7.7) k/uL Monocytes # (0-1.0) k/uL APTT 41.9 H (22.0-30.0) sec Sodium (137-145) mmol/L Potassium (3.5-5.1) mmol/L Carbon Dioxide (22-30) mmol/L BUN (7-17) mg/dL Glucose (74-99) mg/dL POC Glucose (mg/dL) (75-99) mg/dL Total Bilirubin (0.2-1.3) mg/dL AST (14-36) U/L ALT (4-34) U/L Troponin I 0.450 H* 0.586 H* (0.000-0.034) ng/mL 06/29/19 Range/Units 20:33 WBC (3.8-10.6) k/uL Neutrophils # (1.3-7.7) k/uL Monocytes # (0-1.0) k/uL APTT (22.0-30.0) sec Sodium (137-145) mmol/L Potassium (3.5-5.1) mmol/L Carbon Dioxide (22-30) mmol/L BUN (7-17) mg/dL Glucose (74-99) mg/dL POC Glucose (mg/dL) 151 H (75-99) mg/dL Total Bilirubin (0.2-1.3) mg/dL AST (14-36) U/L ALT (4-34) U/L Troponin I (0.000-0.034) ng/mL Thrombosis Risk Factor Assmnt - Choose All That Apply Any of the Below Risk Factors Present?: Yes Each Factor Represents 1 point: Heart failure (<1month), Obesity (BMI >25) Each Risk Factor Represents 3 Points: Age 75 years or older Thrombosis Risk Factor Assessment Total Risk Factor Score: 5 Thrombosis Risk Factor Assessment Level: High Risk Assessment and Plan (1) Congestive heart failure Current Visit: Yes Status: Acute Code(s): I50.9 - HEART FAILURE, UNSPECIFIED SNOMED Code(s): 94612969 (2) NSTEMI (non-ST elevated myocardial infarction) Current Visit: Yes Status: Acute Code(s): I21.4 - NON-ST ELEVATION (NSTEMI) MYOCARDIAL INFARCTION SNOMED Code(s): 48910022 Plan: Elevated troponin. Rule out myocardial infarction. Appropriate diuresis. Check CMP and CBC in a.m. Appreciate cardiology input. Otherwise, she is a full code at this time the patient does have multiple ALLERGIES at this time. Time with Patient: Greater than 30
[2019-06-29] MEDS: DOXYCYCLINE 100 MG in SODIUM CHLORIDE 0.9% 100 ML IVPB SCH (21:51)
[2019-06-30 06:19] LABS: Glucose,Whole Blood 169 mg/dL (75-99)
[2019-06-30] MEDS: INSULIN ASPART (NovoLOG) 100 UNIT/ML VIAL SQ SCH ×5 (06:23→21:22)
[2019-06-30] MEDS: glipiZIDE 10 MG TAB PO SCH ×2 (06:35→16:24)
[2019-06-30 06:36] LABS: Basophils % (A) 0 %; Eosinophils # (A) 0.2 k/uL (0-0.7); Eosinophils % (A) 3 %; HCT 28.7 % (34.0-46.0); Lymphocytes # (A) 1.6 k/uL (1.0-4.8); Lymphocytes % (A) 26 %; MCH 29.6 pg (25.0-35.0); MCHC 33.8 g/dL (31.0-37.0); MCV 87.6 fL (80.0-100.0); Mean Platelet Volume 10.8; Monocytes # (A) 0.6 k/uL (0-1.0); Monocytes % (A) 10 %; Neutrophils # (A) 3.6 k/uL (1.3-7.7); Neutrophils % (A) 59 %; Platelet Count 131 k/uL (150-450); RBC 3.28 m/uL (3.80-5.40); RDW 12.9 % (11.5-15.5); WBC 6.1 k/uL (3.8-10.6)
[2019-06-30] MEDS: HEPARIN SOD,PORK IN 0.45% NACL 25,000 UNIT in 0.45% NACL 1 250ML.BAG IV SCH (06:37)
[2019-06-30 06:42] LABS: HGB 9.7 gm/dL (11.4-16.0)
[2019-06-30 07:47] LABS: Albumin 3.2 g/dL (3.5-5.0); Calcium 8.5 mg/dL (8.4-10.2); Potassium 3.8 mmol/L (3.5-5.1); Total Protein 5.5 g/dL (6.3-8.2)
--- NOTE | 2019-06-30 09:41 | PN ---
PROGRESS NOTE Vicky Nixno is a lady with history of CAD, hypertension, hyperlipidemia. She came in yesterday with accelerated hypertension, hyperkalemia, and was in congestive heart failure. She has been diuresed. She feels well this morning. She denies any chest discomfort. She is resting comfortably. Her breathing is easier. Her troponin shows some modest elevation, but this could be related to her CHF, accelerated hypertension and related type 2 ischemia. She is resting comfortably at this time. Denies any chest discomfort. She insists that she did not have chest discomfort when she came in yesterday either. Echo revealed ejection fraction of about 30%. Troponin profile does suggest possible myocardial injury, but this is a type 2 [place], I believe. She is known to have previous RCA and LAD PCI. Physical examination revealed a blood pressure of 128/70, pulse rate is in the 70s. Sinus tachycardia of the left bundle. JVD 1 cm, no carotid bruit. S1, S2 heard normally, short systolic murmur noted. Lungs reveal remarkably decent air entry without rales. Abdomen and lower extremity exam is unchanged. Central nervous system is normal. I am recommending that we decrease the Lasix from q.8 to q.12 hours IV and if she does well, she can potentially be discharged on oral Lasix 40 mg b.i.d. p.o. tomorrow. LV dysfunction is noted. We will need to repeat an echo to see if there is some improvement down the road. This echo was performed after episode of accelerated hypertension. Her potassium has also improved. I am going to suggest that we supplement 20 mEq of potassium. Start her on losartan at bedtime, discontinue IV nitroglycerin, switch her from IV to subcu heparin, increase activity and possible discharge tomorrow. MMODL / IJN: [id number] /
[2019-06-30] MEDS: FUROSEMIDE 10 MG/ML 4 ML VIAL IV SCH ×3 (09:56→21:21)
[2019-06-30] MEDS: METOPROLOL TARTRATE 25 MG TAB PO SCH ×2 (09:56→21:22)
[2019-06-30] MEDS: DOXYCYCLINE 100 MG in SODIUM CHLORIDE 0.9% 100 ML IVPB SCH (09:56)
[2019-06-30] MEDS: ASPIRIN 81 MG PO SCH (09:57)
[2019-06-30] MEDS: CLOPIDOGREL 75 MG TAB PO SCH (09:58)
[2019-06-30] MEDS: FERROUS SULFATE 325 MG TAB PO SCH (09:58)
[2019-06-30] MEDS: CYANOCOBALAMIN 500 MCG TAB PO SCH (09:58)
[2019-06-30] MEDS: HEPARIN SODIUM,PORCINE 5,000 UNIT/ML 1 ML VIAL SQ SCH ×2 (10:02→21:21)
[2019-06-30] MEDS: LOSARTAN 50 MG TAB PO SCH (10:02)
[2019-06-30] MEDS: hydrALAZINE HCL 50 MG TAB PO SCH ×3 (10:12→21:21)
[2019-06-30 10:55] VITALS: BMI 37.2
--- NOTE | 2019-06-30 11:20 | P.PN ---
Subjective 74-year-old female was admitted secondary to heart failure exacerbation, patient has a chronic systolic dysfunction with acute exacerbation EF of around 25-30% patient remains on IV Lasix there is mild worsening of serum creatinine patient the Lasix dose was switched from 40 IV twice a day to IV twice a day. Patient has mildly elevated troponin appears to be secondary to heart failure. Patient had was hyperkalemicand her Vasotec was discontinued since her hyperkalemia improved patient was started back on losartan today. Patient remains on IV Lasix.patient was hyponatremic as well secondary to heart failure which improved now with Lasix. Patient was tachycardic which improved with a beta chely. There is no clinical evidence of pneumonia because of which are risk and urine antibiotics patient leukocytosis reactive in nature Constitutional: Denied any fatigue denied any fever. Cardio vascular: denied any chest pain, palpitations Gastrointestinal denied any nausea vomiting Pulmonary: Denied any shortness of breath cough Neurologic denied any new focal deficits All inpatient medications were reviewed and appropriate changes in these medications as dictated in the interval history and assessment and plan. Objective - Vital Signs Vital signs: Vital Signs Temp 97.7 F 06/30/19 08:00 Pulse 73 06/30/19 08:00 Resp 20 06/30/19 08:00 BP 122/62 06/30/19 08:00 Pulse Ox 97 06/30/19 03:36 Intake & Output 06/29/19 06/30/19 06/30/19 18:59 06:59 18:59 Intake Total 66.074 387.013 Output Total 500 700 Balance -433.926 -312.987 Weight 85.6 kg 86.5 kg 86.5 kg Intake: Intake, IV Titration 66.074 147.013 Amount Heparin Sod,Pork in 0.45% 66.074 147.013 NaCl 25,000 unit In 0.45 % NaCl 1 250ml.bag @ 11.9 UNITS/KG/HR 9.986 mls/hr IV .Q24H [facility] Rx#: [id number] Oral 240 Output: Urine 500 700 Other: # Voids 1 - Exam PHYSICAL EXAMINATION: GENERAL: The patient is alert and oriented x3, not in any acute distress. Well developed, well nourished. HEENT: Pupils are round and equally reacting to light. EOMI. No scleral icterus. No conjunctival pallor. Normocephalic, atraumatic. No pharyngeal erythema. No th yromegaly. CARDIOVASCULAR: S1 and S2 present. No murmurs, rubs, or gallops. mildly elevated JVD PULMONARY: Chest is clear to auscultation, no wheezing or crackles. ABDOMEN: Soft, nontender, nondistended, normoactive bowel sounds. No palpable organomegaly. MUSCULOSKELETAL: No joint swelling or deformity. EXTREMITIES: No cyanosis, clubbing, or pedal edema. NEUROLOGICAL: Gross neurological examination did not reveal any focal deficits. SKIN: No rashes. Note: Because of COVID 19 isolation, some of the history and physical exam findings or indirect and obtained from nursing staff, and other physician examinations to avoid unnecessary contact with the patient. - Labs CBC & Chem 7: 06/30/19 05:23 06/30/19 05:23 Labs: Abnormal Lab Results - Last 24 Hours (Table) 06/29/19 06/29/19 06/29/19 Range/Units 15:10 15:10 20:33 RBC (3.80-5.40) m/uL Hgb (11.4-16.0) gm/dL Hct (34.0-46.0) % Plt Count (150-450) k/uL APTT 41.9 H (22.0-30.0) sec Sodium (137-145) mmol/L BUN (7-17) mg/dL Creatinine (0.52-1.04) mg/dL Glucose (74-99) mg/dL POC Glucose (mg/dL) 151 H (75-99) mg/dL Troponin I 0.586 H* (0.000-0.034) ng/mL Total Protein (6.3-8.2) g/dL Albumin (3.5-5.0) g/dL 06/29/19 06/29/19 06/30/19 Range/Units 21:51 21:51 05:23 RBC 3.28 L (3.80-5.40) m/uL Hgb 9.7 L D (11.4-16.0) gm/dL Hct 28.7 L (34.0-46.0) % Plt Count 131 L (150-450) k/uL APTT 90.3 H (22.0-30.0) sec Sodium (137-145) mmol/L BUN (7-17) mg/dL Creatinine (0.52-1.04) mg/dL Glucose (74-99) mg/dL POC Glucose (mg/dL) (75-99) mg/dL Troponin I 0.682 H* (0.000-0.034) ng/mL Total Protein (6.3-8.2) g/dL Albumin (3.5-5.0) g/dL 06/30/19 06/30/19 06/30/19 Range/Units 05:23 05:23 06:17 RBC (3.80-5.40) m/uL Hgb (11.4-16.0) gm/dL Hct (34.0-46.0) % Plt Count (150-450) k/uL APTT 65.8 H (22.0-30.0) sec Sodium 136 L (137-145) mmol/L BUN 35 H (7-17) mg/dL Creatinine 1.06 H (0.52-1.04) mg/dL Glucose 143 H (74-99) mg/dL POC Glucose (mg/dL) 169 H (75-99) mg/dL Troponin I (0.000-0.034) ng/mL Total Protein 5.5 L (6.3-8.2) g/dL Albumin 3.2 L (3.5-5.0) g/dL Microbiology - Last 24 Hours (Table) 06/29/19 09:00 Blood Culture - Preliminary Blood No Growth after 24 hours Assessment and Plan Plan: that his heart failure chronic systolic dysfunction with acute exacerbation continue with IV Lasix monitor kidney function possibly of discharge tomorrow on oral Lasix which will be 40 twice a day patient uses for today. Home -Hyperkalemia secondary to RANDA inhibitor which improved now patient was started on angiotensin receptor chely now. -Hypervolemic hyponatremia: Secondary to heart failure exacerbation improved with Lasix can you with IV Lasix -Elevated troponin secondary to heart failure no evidence of acute microinfarction at this time -Leukocytosis reactive in nature ruled out pneumonia, and Videx will be discontinued -Mild acute renal failure secondary to excessive diuresis which we are continued down -Elevated liver enzymes secondary to hepatic congestion it's also improved -Type 2 diabetes mellitus -Hypertension -Coronary artery disease
[2019-06-30] MEDS ORDERED: CHOLECALCIFEROL 1,000 UNIT TAB PO SCH (12:00)
[2019-06-30 12:46] LABS: Glucose,Whole Blood 155 mg/dL (75-99)
[2019-06-30 13:41] LABS: Hemoglobin A1C 7.8 % (4.0-6.0)
[2019-06-30 17:45] LABS: Glucose,Whole Blood 81 mg/dL (75-99)
[2019-06-30 19:46] LABS: Glucose,Whole Blood 162 mg/dL (75-99)
[2019-07-01 06:12] LABS: Glucose,Whole Blood 159 mg/dL (75-99)
[2019-07-01 06:43] LABS: Basophils % (A) 0 %; Eosinophils # (A) 0.1 k/uL (0-0.7); Eosinophils % (A) 2 %; HCT 31.1 % (34.0-46.0); HGB 10.2 gm/dL (11.4-16.0); Lymphocytes # (A) 1.7 k/uL (1.0-4.8); Lymphocytes % (A) 29 %; MCH 29.2 pg (25.0-35.0); MCHC 32.7 g/dL (31.0-37.0); MCV 89.3 fL (80.0-100.0); Mean Platelet Volume 10.1; Monocytes # (A) 0.7 k/uL (0-1.0); Monocytes % (A) 12 %; Neutrophils # (A) 3.2 k/uL (1.3-7.7); Neutrophils % (A) 53 %; Platelet Count 122 k/uL (150-450); RBC 3.49 m/uL (3.80-5.40); RDW 13.2 % (11.5-15.5); WBC 5.9 k/uL (3.8-10.6)
[2019-07-01] MEDS: INSULIN ASPART (NovoLOG) 100 UNIT/ML VIAL SQ SCH (06:44)
[2019-07-01] MEDS: glipiZIDE 10 MG TAB PO SCH (06:57)
[2019-07-01 07:06] LABS: Calcium 8.9 mg/dL (8.4-10.2); Potassium 3.6 mmol/L (3.5-5.1)
[2019-07-01] MEDS: CLOPIDOGREL 75 MG TAB PO SCH (10:12)
[2019-07-01] MEDS: LOSARTAN 50 MG TAB PO SCH (10:12)
[2019-07-01] MEDS: hydrALAZINE HCL 50 MG TAB PO SCH (10:12)
[2019-07-01] MEDS: METOPROLOL TARTRATE 25 MG TAB PO SCH (10:12)
[2019-07-01] MEDS: HEPARIN SODIUM,PORCINE 5,000 UNIT/ML 1 ML VIAL SQ SCH (10:13)
[2019-07-01] MEDS: ASPIRIN 81 MG PO SCH (10:13)
[2019-07-01] MEDS: FUROSEMIDE 10 MG/ML 4 ML VIAL IV SCH (10:13)
[2019-07-01] MEDS: FERROUS SULFATE 325 MG TAB PO SCH (10:13)
[2019-07-01] MEDS: CYANOCOBALAMIN 500 MCG TAB PO SCH (10:13)
[2019-07-01 11:01] VITALS: BP 140/60; PULSE 75; RESP 20; TEMP 97.3
[2019-07-01 11:44] LABS: Glucose,Whole Blood 211 mg/dL (75-99)
--- NOTE | 2019-07-01 11:48 | PN ---
PROGRESS NOTE Vicky Nixon is doing better. No chest pain. Her shortness of breath has improved a lot. Her ejection fraction is reduced. She has had previous multivessel PCI. I am recommending that we switch her to oral Lasix at 40 mg b.i.d., increase activity and after discharge she will see Dr. Chavez. Her troponin elevation is probably related to exacerbation of congestive heart failure with accelerated hypertension. Vitals are stable. JVD 1 cm. No carotid bruit. S1-S2 heard normally. Short systolic murmur noted. Lungs reveal improved air entry. Abdomen and lower extremity exam is unchanged. MMODL / IJN: [id number] /
--- NOTE | 2019-07-01 13:37 | P.DS ---
Providers Date of admission: 06/29/19 10:06 Attending physician: Last Barrios Consults: 06/29/19 10:07 Consult Physician Urgent Consulting Provider: Janice Art Consult Reason/Comments: CHF, NSTEMI Do you want consulting provider notified?: Already Contacted Primary care physician: Last Barrios [facility] Course: 74-year-old female was admitted secondary to heart failure exacerbation, patient has a chronic systolic dysfunction with acute exacerbation EF of around 25-30% patient remains on IV Lasix there is mild worsening of serum creatinine patient the Lasix dose was switched from 40 IV twice a day to IV twice a day. Patient has mildly elevated troponin appears to be secondary to heart failure. Patient had was hyperkalemicand her Vasotec was discontinued since her hyperkalemia improved patient was started back on losartan today. Patient remains on IV Lasix.patient was hyponatremic as well secondary to heart failure which improved now with Lasix. Patient was tachycardic which improved with a beta chely. There is no clinical evidence of pneumonia because of which are risk and urine antibiotics patient leukocytosis reactive in nature. 07/01/2019 Patient is off AND patient is fairly euvolemic will be discharged today. PHYSICAL EXAMINATION: GENERAL: The patient is alert and oriented x3, not in any acute distress. Well developed, well nourished. HEENT: Pupils are round and equally reacting to light. EOMI. No scleral icterus. No conjunctival pallor. Normocephalic, atraumatic. No pharyngeal erythema. No thyromegaly. CARDIOVASCULAR: S1 and S2 present. No murmurs, rubs, or gallops. PULMONARY: Chest is clear to auscultation, no wheezing or crackles. ABDOMEN: Soft, nontender, nondistended, normoactive bowel sounds. No palpable organomegaly. MUSCULOSKELETAL: No joint swelling or deformity. EXTREMITIES: No cyanosis, clubbing, or pedal edema. NEUROLOGICAL: Gross neurological examination did not reveal any focal deficits. SKIN: No rashes. Assessment and Plan Plan: that his heart failure chronic systolic dysfunction with acute exacerbation improved now and patient is being discharged on Lasix 40 twice a day -Hyperkalemia secondary to RANDA inhibitor which improved now patient was started on angiotensin receptor chely now. -Hypervolemic hyponatremia: Secondary to heart failure exacerbation improved with Lasix -Elevated troponin secondary to heart failure no evidence of acute myocardial infarction at this time -Leukocytosis reactive in nature ruled out pneumonia, antibiotics were discontinued -Mild acute renal failure secondary to excessive diuresis him up patient is stable or mild improvement -Elevated liver enzymes secondary to hepatic congestion it's also improved -Type 2 diabetes mellitus -Hypertension -Coronary artery disease Patient Condition at Discharge: Serious Plan - Discharge Summary Discharge Rx Participant: No New Discharge Prescriptions: New Losartan [Cozaar] 50 mg PO DAILY #30 tab Metoprolol Tartrate [Lopressor] 25 mg PO BID #60 tab Aspirin 81 mg PO DAILY #30 chew Continue glipiZIDE [Glipizide ER] 20 mg PO QAM Ferrous Sulfate [Iron (65 MG Elemental)] 325 mg PO DAILY Clopidogrel [Plavix] 75 mg PO DAILY #90 tab Cyanocobalamin (Vitamin B-12) [Vitamin B-12] 1,000 mcg PO DAILY Cholecalciferol [Vitamin D3] 2,000 unit PO DAILY@1200 Changed Furosemide [Lasix] 40 mg PO BID #60 tab Discontinued Enalapril [Vasotec] 10 mg PO BID Potassium Chloride 10 meq PO DAILY Atenolol 12.5 mg PO DAILY Discharge Medication List glipiZIDE [Glipizide ER] 20 mg PO QAM 01/08/14 [History] Ferrous Sulfate [Iron (65 MG Elemental)] 325 mg PO DAILY 02/12/19 [History] Clopidogrel [Plavix] 75 mg PO DAILY #90 tab 02/15/19 [Rx] Cholecalciferol [Vitamin D3] 2,000 unit PO DAILY@1200 06/29/19 [History] Cyanocobalamin (Vitamin B-12) [Vitamin B-12] 1,000 mcg PO DAILY 06/29/19 [History] Aspirin 81 mg PO DAILY #30 chew 07/01/19 [Rx] Furosemide [Lasix] 40 mg PO BID #60 tab 07/01/19 [Rx] Losartan [Cozaar] 50 mg PO DAILY #30 tab 07/01/19 [Rx] Metoprolol Tartrate [Lopressor] 25 mg PO BID #60 tab 07/01/19 [Rx] Follow up Appointment(s)/Referral(s): Last Barrios MD [Primary Care Provider] - 3 Days Mina Chavez MD [STAFF PHYSICIAN] - 1 Week Patient Instructions/Handouts: Heart Failure (ER), Community Acquired Pneumonia (DC), Low-Sodium Diet (DC) Discharge Disposition: HOME SELF-CARE
--- NOTE | 2019-07-04 10:28 | CDI ---
Documentation Clarification Form Date: 07/04/19 From: Cassandra Goyal Phone: If you have a question about this query, please contact Mildred Victoria, Machine Assistant at [phone] between 8am and 5pm. Admit Date: 06/29/19 Discharge Date:07/01/19 Patient Name: Vicky Nixon Visit Number: [id number] ATTENTION: The Clinical Documentation Specialists (CDI) and [facility] Coding Staff appreciate your assistance in clarifying documentation. Please respond to the clarification below the line at the bottom and electronically sign. The CDI & [facility] Coding staff will review the response and follow-up if needed. Please note: Queries are made part of the Legal Health Record. If you have any questions, please contact the author of this message via ITS. Dear Dr. Barrios This patient is admitted with respiratory distress per ED note. History/Risk Factors: CHF exacerbation, CAD, obesity Clinical Indicators: Shortness of breath for last 2 days, Vital Signs: T. 97.8, P. 98, R. 24, BP 200/116 Pulse Ox: 96% on BiPAP Treatment: Oxygen: BiPAP for 2 hours then 4 L/min by nasal cannula Medications: IV Lasix Other clinical indicators: Rales, accessory muscle use, decreased breath sounds In order to accurately reflect the severity of condition, please indicate if the above clinical findings and treatment signify a respiratory condition, such as: Acute Respiratory Distress Respiratory Failure, please specify -Acute-This is the correct diagnosis at this time -Acute on Chronic -Chronic Further specify (if known): -With hypercapnia? -With hypoxia? Other, please specify Unable to determine MTDD
--- NOTE | 2019-07-17 10:52 | CDI ---
Documentation Clarification Form Date: 07/17/19 From: Cassandra Goyal Phone: If you have a question about this query, please contact Mildred Victoria, A R Specialist at [phone] between 8am and 5pm. Admit Date: Discharge Date: Patient Name: Visit Number: ATTENTION: The Clinical Documentation Specialists (CDI) and [facility] Coding Staff appreciate your assistance in clarifying documentation. Please respond to the clarification below the line at the bottom and electronically sign. The CDI & [facility] Coding staff will review the response and follow-up if needed. Please note: Queries are made part of the Legal Health Record. If you have any questions, please contact the author of this message via ITS. Dear Dr. Barrios Thank you for signing your previous query. Please document a response before signing this query. This patient is admitted with respiratory distress per ED note. History/Risk Factors: CHF exacerbation, CAD, obesity Clinical Indicators: Shortness of breath for last 2 days, Vital Signs: T. 97.8, P. 98, R. 24, BP 200/116 Pulse Ox: 96% on BiPAP Treatment: Oxygen: BiPAP for 2 hours then 4 L/min by nasal cannula Medications: IV Lasix Other clinical indicators: Rales, accessory muscle use, decreased breath sounds In order to accurately reflect the severity of condition, please indicate if the above clinical findings and treatment signify a respiratory condition, such as: Acute Respiratory Distress Respiratory Failure, please specify -Acute -Acute on Chronic-This is the correct diagnosis -Chronic Further specify (if known): -With hypercapnia? -With hypoxia?-This is also clinically relevant for this patient (hypoxia) Other, please specify Unable to determine MTDD
== END 2019-07-01 13:08 | disposition home or self-care (01) | DRG 291 ==
LOC: EC 08:28 → 3SCARD 10:06
PROVIDERS: ADMIT Family Medicine; ATTEND Family Medicine
PROC: 5A09357 Assistance with Respiratory Ventilation, Less than 24 Consecutive Hours, Continuous Positive Airway Pressure (ICD-10-PCS; principal; 2019-06-29)
DX: I11.0 Hypertensive heart disease with heart failure (principal); J96.21 Acute and chronic respiratory failure with hypoxia; E87.1 Hypo-osmolality and hyponatremia; N17.9 Acute kidney failure, unspecified; I50.23 Acute on chronic systolic (congestive) heart failure; E11.9 Type 2 diabetes mellitus without complications; E66.9 Obesity, unspecified; E78.5 Hyperlipidemia, unspecified; E87.5 Hyperkalemia; T50.2X5A Adverse effect of carbonic-anhydrase inhibitors, benzothiadiazides and other diuretics, initial encounter; I25.10 Atherosclerotic heart disease of native coronary artery without angina pectoris; I25.2 Old myocardial infarction; I25.5 Ischemic cardiomyopathy; I44.7 Left bundle-branch block, unspecified; R01.1 Cardiac murmur, unspecified; R79.89 Other specified abnormal findings of blood chemistry; Z20.828 Contact with and (suspected) exposure to other viral communicable diseases; M19.90 Unspecified osteoarthritis, unspecified site; R74.8 Abnormal levels of other serum enzymes; D72.829 Elevated white blood cell count, unspecified; Z68.36 Body mass index [BMI] 36.0-36.9, adult; Z79.02 Long term (current) use of antithrombotics/antiplatelets; Z79.82 Long term (current) use of aspirin; Z79.899 Other long term (current) drug therapy; Z87.891 Personal history of nicotine dependence; Z86.74 Personal history of sudden cardiac arrest; Z88.0 Allergy status to penicillin; Z88.8 Allergy status to other drugs, medicaments and biological substances; Z88.1 Allergy status to other antibiotic agents; Z91.012 Allergy to eggs; Z91.040 Latex allergy status; Z80.1 Family history of malignant neoplasm of trachea, bronchus and lung; Z82.5 Family history of asthma and other chronic lower respiratory diseases; Z83.3 Family history of diabetes mellitus
CPT/HCPCS: 36415; 71045; 80048; 80053; 83036; 83605; 83735; 83880; 84132; 84484; 85025; 85610; 85730; 87040; 87635; 93005; 93306; 94660; 96365; 96375; 96376; 99291

== ENCOUNTER 2019-11-16 17:30 | Emergency (ER) | payer MEDICARE, OTHER ==
[2019-11-16 17:36] VITALS: TEMP 98
[2019-11-16] MEDS ORDERED: SODIUM CHLORIDE 0.9% 1,000 ML IV STA (17:41)
--- NOTE | 2019-11-16 18:08 | ED ---
Abdominal Pain HPI - General Chief Complaint: Abdominal Pain Stated Complaint: poss bowel obstruction/hemorrhoids Time Seen by Provider: 11/16/19 17:40 Source: patient Mode of arrival: wheelchair Limitations: no limitations - History of Present Illness Initial Comments: Patient is 74-year-old female history of hemorrhoids and constipation presented to the emergency department with chief complaint of constipation and hemorrhoid. Patient reports about one week ago she ate some ice cream which typically causes her constipation secondary to lactose intolerance. Patient reports she's not had a bowel movement approximately one week. She is able to pass gas. Also reports she developed a hemorrhoid due to the straining from constipation. Patient reports it itches and it is painful. States it is difficult to be in a sitting position. Denies any hematuria, hematochezia or melena. She does report some dysuria but no increased urgency or frequency. Patient is diabetic. No night sweats fevers or chills. No nausea vomiting. - Related Data Home Medications Medication Instructions Recorded Confirmed glipiZIDE [Glipizide ER] 20 mg PO QAM 01/08/14 06/29/19 Ferrous Sulfate [Iron (65 MG 325 mg PO DAILY 02/12/19 06/29/19 Elemental)] Cholecalciferol [Vitamin D3] 2,000 unit PO DAILY@1200 06/29/19 06/29/19 Cyanocobalamin (Vitamin B-12) 1,000 mcg PO DAILY 06/29/19 06/29/19 [Vitamin B-12] Previous Rx's Medication Instructions Recorded Clopidogrel [Plavix] 75 mg PO DAILY #90 tab 02/15/19 Aspirin 81 mg PO DAILY #30 chew 07/01/19 Furosemide [Lasix] 40 mg PO BID #60 tab 07/01/19 Losartan [Cozaar] 50 mg PO DAILY #30 tab 07/01/19 Metoprolol Tartrate [Lopressor] 25 mg PO BID #60 tab 07/01/19 Allergies Allergy/AdvReac Type Severity Reaction Status Date / Time Corticosteroids Allergy Unknown Unknown Verified 11/16/19 17:36 (Glucocorticoids) azithromycin [From Zithromax] Allergy Anaphylaxis Verified 11/16/19 17:36 banana Allergy Unknown Verified 11/16/19 17:36 carisoprodol [From Soma] Allergy Unknown Verified 11/16/19 17:36 ciprofloxacin [From Cipro] Allergy Unknown Verified 11/16/19 17:36 cortisone [Cortisone] Allergy Unknown Verified 11/16/19 17:36 cyclobenzaprine HCl Allergy Unknown Verified 11/16/19 17:36 [From Flexeril] egg Allergy Unknown Verified 11/16/19 17:36 latex Allergy Unknown Verified 11/16/19 17:36 Latex, Natural Rubber Allergy Unknown Verified 11/16/19 17:36 levofloxacin [From Levaquin] Allergy Anaphylaxis Verified 11/16/19 17:36 Penicillins Allergy Anaphylaxis Verified 11/16/19 17:36 Review of Systems ROS Statement: Those systems with pertinent positive or pertinent negative responses have been documented in the HPI. ROS Other: All systems not noted in ROS Statement are negative. 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 Last Myocardial Infarction Date:: 01-03-14 History of Any Multi-Drug Resistant Organisms: None Reported Past Surgical History: Heart Catheterization With Stent Additional Past Surgical History / Comment(s): d&c, stent rca 01-07-14 Past Anesthesia/Blood Transfusion Reactions: No Reported Reaction Date of Last Stent Placement:: 2013 Past Psychological History: No Psychological Hx Reported Smoking Status: Never smoker Past Alcohol Use History: None Reported Past Drug Use History: None Reported - Past Family History Father Family Medical History: Cancer, Diabetes Mellitus Additional Family Medical History / Comment(s): age 70 from lung cancer Mother Additional Family Medical History / Comment(s): age 83 emphysema General Exam Limitations: no limitations General appearance: alert, in no apparent distress, obese Head exam: Present: atraumatic, normocephalic, normal inspection Eye exam: Present: normal appearance, PERRL, EOMI Pupils: Present: normal accommodation ENT exam: Present: normal exam, normal oropharynx, mucous membranes moist Neck exam: Present: normal inspection, full ROM. Absent: tenderness Respiratory exam: Present: normal lung sounds bilaterally. Absent: respiratory distress, wheezes, rales Cardiovascular Exam: Present: regular rate, normal rhythm, normal heart sounds GI/Abdominal exam: Present: soft, distended, tenderness (Left lower abdominal tenderness). Absent: guarding, rebound, rigid Rectal exam: Present: deferred, normal inspection (Residual stool). Absent: hemorrhoids (No external hemorrhoids detected.) Extremities exam: Present: normal inspection, full ROM. Absent: tenderness Back exam: Present: normal inspection, full ROM. Absent: tenderness, CVA tenderness (R), CVA tenderness (L) Neurological exam: Present: alert, oriented X3 Psychiatric exam: Present: normal affect, normal mood Skin exam: Present: warm, dry, intact, normal color Course Vital Signs 11/16/19 17:34 Temperature 98.0 F Pulse Rate 73 Respiratory 20 Rate Blood Pressure 163/60 O2 Sat by Pulse 97 Oximetry Medical Decision Making - Medical Decision Making Patient 74-year-old female presenting to emergency Department with chief complaint of constipation and hemorrhoids. On exam I was not able to detect any external hemorrhoids. There is no active rectal bleeding of any kind. There was some residual stool around the anus. CBC reveals leukocytosis of 14 K. CMP reveals decreased renal function a little this appears to be her baseline. UA shows elevated leukocyte esterase with 22 white blood cells. Patient will treated for UTI because she complained of dysuria. Patient will be started on Macrobid. She was given an enema and was able to have a large bowel movement. Patient reported great improvement of symptoms. She was advised to follow with the primary care physician. She was also advised to eat a high-fiber diet and take stool softeners. Strict return parameters were thoroughly discussed the patient was standing agreeable. Case discussed with physician. - Lab Data Result diagrams: 11/16/19 17:47 11/16/19 17:47 Lab Results 11/16/19 11/16/19 11/16/19 Range/Units 17:47 17:47 17:47 WBC 14.0 H (3.8-10.6) k/uL RBC 4.09 (3.80-5.40) m/uL Hgb 11.2 L (11.4-16.0) gm/dL Hct 34.2 (34.0-46.0) % MCV 83.6 (80.0-100.0) fL MCH 27.3 (25.0-35.0) pg MCHC 32.6 (31.0-37.0) g/dL RDW 13.5 (11.5-15.5) % Plt Count 222 (150-450) k/uL Neutrophils % 76 % Lymphocytes % 15 % Monocytes % 7 % Eosinophils % 0 % Basophils % 1 % Neutrophils # 10.6 H (1.3-7.7) k/uL Lymphocytes # 2.1 (1.0-4.8) k/uL Monocytes # 1.0 (0-1.0) k/uL Eosinophils # 0.1 (0-0.7) k/uL Basophils # 0.1 (0-0.2) k/uL Sodium 130 L (137-145) mmol/L Potassium 4.0 (3.5-5.1) mmol/L Chloride 93 L (98-107) mmol/L Carbon Dioxide 27 (22-30) mmol/L Anion Gap 10 mmol/L BUN 26 H (7-17) mg/dL Creatinine 1.05 H (0.52-1.04) mg/dL Est GFR (CKD-EPI)AfAm 60 (>60 ml/min/1.73 sqM) Est GFR (CKD-EPI)NonAf 52 (>60 ml/min/1.73 sqM) Glucose 193 H (74-99) mg/dL Calcium 9.3 (8.4-10.2) mg/dL Total Bilirubin 1.0 (0.2-1.3) mg/dL AST 28 (14-36) U/L ALT 14 (4-34) U/L Alkaline Phosphatase 68 (38-126) U/L Total Protein 6.6 (6.3-8.2) g/dL Albumin 4.0 (3.5-5.0) g/dL Lipase 161 (23-300) U/L Urine Color Yellow Urine Appearance Cloudy H (Clear) Urine pH 7.0 (5.0-8.0) Ur Specific Irwin 1.006 (1.001-1.035) Urine Protein Negative (Negative) Urine Glucose (UA) Trace H (Negative) Urine Ketones Negative (Negative) Urine Blood Negative (Negative) Urine Nitrite Negative (Negative) Urine Bilirubin Negative (Negative) Urine Urobilinogen <2.0 (<2.0) mg/dL Ur Leukocyte Esterase Small H (Negative) Urine RBC 7 H (0-5) /hpf Urine WBC 22 H (0-5) /hpf Urine WBC Clumps Few H (None) /hpf Ur Squamous Epith Cells <1 (0-4) /hpf Urine Bacteria Occasional H (None) /hpf Urine Mucus Rare H (None) /hpf Disposition Clinical Impression: Abdominal pain, Constipation Disposition: HOME SELF-CARE Condition: Stable Instructions (If sedation given, give patient instructions): Constipation (ED), High Fiber Diet (ED) Additional Instructions: Please eat a high-fiber diet. Take stool softeners daily. Follow with the primary care physician. Return to emergency department if symptoms worsen. Is patient prescribed a controlled substance at d/c from ED?: No Referrals: Last Barrios MD [Primary Care Provider] - 1-2 days Time of Disposition: 20:21
[2019-11-16 18:32] LABS: Basophils # (A) 0.1 k/uL (0-0.2); Basophils % (A) 1 %; Eosinophils # (A) 0.1 k/uL (0-0.7); Eosinophils % (A) 0 %; HCT 34.2 % (34.0-46.0); HGB 11.2 gm/dL (11.4-16.0); Lymphocytes # (A) 2.1 k/uL (1.0-4.8); Lymphocytes % (A) 15 %; MCH 27.3 pg (25.0-35.0); MCHC 32.6 g/dL (31.0-37.0); MCV 83.6 fL (80.0-100.0); Mean Platelet Volume 8.4; Monocytes % (A) 7 %; Neutrophils # (A) 10.6 k/uL (1.3-7.7); Neutrophils % (A) 76 %; Platelet Count 222 k/uL (150-450); RBC 4.09 m/uL (3.80-5.40); RDW 13.5 % (11.5-15.5)
[2019-11-16 18:40] LABS: Calcium 9.3 mg/dL (8.4-10.2); Total Protein 6.6 g/dL (6.3-8.2)
--- NOTE | 2019-11-16 18:53 | XR ---
EXAMINATION TYPE: XR KUB DATE OF EXAM: 11/16/2019 COMPARISON: NONE HISTORY: Constipation TECHNIQUE: 2 views supine FINDINGS: There is some retained fecal material throughout the colon down to the rectum. There is no evidence of free air. Rectum measures 7 cm in diameter. The lung bases are clear of consolidation. Th ere is no pathologic calcification over the kidneys. IMPRESSION: There is evidence for constipation. No free air.
[2019-11-16 20:15] LABS: Appearance,Urine Cloudy (Clear); Bacteria,Urine Occasional /hpf; Bilirubin,Urine Negative (Negative); Blood,Urine Negative (Negative); Color,Urine Yellow; Glucose,Urine (UA) Trace (Negative); Ketones,Urine Negative (Negative); Leukocyte Esterase,Urine Small (Negative); Mucus,Urine Rare /hpf; Nitrite,Urine Negative (Negative); Protein,Urine Negative (Negative); RBC,Urine 7 /hpf (0-5); Specific Gravity,Urine 1.006 (1.001-1.035); Squamous Epithelial Cell,Urine <1 /hpf (0-4); Urobilinogen,Urine <2.0 mg/dL (<2.0); WBC,Urine 22 /hpf (0-5)
[2019-11-16 20:38] VITALS: BP 171/67; PULSE 68; RESP 18
== END 2019-11-16 20:43 | disposition home or self-care (01) ==
LOC: EC 17:30
DX: R10.9 Unspecified abdominal pain (principal); K59.00 Constipation, unspecified; K64.9 Unspecified hemorrhoids; D72.829 Elevated white blood cell count, unspecified; R82.998 Other abnormal findings in urine; E11.9 Type 2 diabetes mellitus without complications; I25.2 Old myocardial infarction; Z79.84 Long term (current) use of oral hypoglycemic drugs; Z79.899 Other long term (current) drug therapy; Z88.0 Allergy status to penicillin; Z91.040 Latex allergy status; Z91.012 Allergy to eggs; Z88.8 Allergy status to other drugs, medicaments and biological substances; Z88.1 Allergy status to other antibiotic agents; Z91.018 Allergy to other foods
CPT/HCPCS: 36415; 74018; 80053; 81001; 83690; 85025; 87086; 96360; 99284

== ENCOUNTER 2020-03-25 13:03 | Inpatient (IN) | payer MEDICARE, OTHER ==
[2020-03-25] MEDS ORDERED: ACETAMINOPHEN TAB 500 MG TAB PO PRN (13:25)
[2020-03-25] MEDS ORDERED: ALBUTEROL HFA INHALER INHALATION STA (13:25)
[2020-03-25] MEDS ORDERED: ACETAMINOPHEN TAB 500 MG TAB PO STA (13:25)
[2020-03-25] MEDS ORDERED: ALBUTEROL HFA INHALER INHALATION PRN (13:25)
--- NOTE | 2020-03-25 13:29 | ED ---
General Adult HPI - General Chief complaint: Weakness Stated complaint: headache/no appetite/weakness Time Seen by Provider: 03/25/20 13:19 Source: patient, RN notes reviewed Mode of arrival: ambulatory Limitations: no limitations - History of Present Illness Initial comments: Patient is a pleasant 74-year-old female presenting to the emergency Department with complaints of generalized weakness. Onset of symptoms was 3-4 days ago. Patient has chills and myalgias, unclear if she has fevers or not. No cough. Minimal dyspnea. Mild headache. Patient does feel fatigued. No abdominal pain or dysuria. Decreased appetite. - Related Data Home Medications Medication Instructions Recorded Confirmed glipiZIDE [Glipizide ER] 20 mg PO QAM 01/08/14 06/29/19 Ferrous Sulfate [Iron (65 MG 325 mg PO DAILY 02/12/19 06/29/19 Elemental)] Cholecalciferol [Vitamin D3 (10 2,000 unit PO DAILY@1200 06/29/19 06/29/19 Mcg = 400 Iu)] Cyanocobalamin (Vitamin B-12) 1,000 mcg PO DAILY 06/29/19 06/29/19 [Vitamin B-12] Previous Rx's Medication Instructions Recorded Clopidogrel [Plavix] 75 mg PO DAILY #90 tab 02/15/19 Aspirin 81 mg PO DAILY #30 chew 07/01/19 Furosemide [Lasix] 40 mg PO BID #60 tab 07/01/19 Losartan [Cozaar] 50 mg PO DAILY #30 tab 07/01/19 Metoprolol Tartrate [Lopressor] 25 mg PO BID #60 tab 07/01/19 Nitrofurantoin Monohyd/M-Cryst 100 mg PO Q12HR #14 cap 11/16/19 [Macrobid] Allergies Allergy/AdvReac Type Severity Reaction Status Date / Time Corticosteroids Allergy Unknown Unknown Verified 03/25/20 13:13 (Glucocorticoids) azithromycin [From Zithromax] Allergy Anaphylaxis Verified 03/25/20 13:13 banana Allergy Unknown Verified 03/25/20 13:13 carisoprodol [From Soma] Allergy Unknown Verified 03/25/20 13:13 ciprofloxacin [From Cipro] Allergy Unknown Verified 03/25/20 13:13 cortisone [Cortisone] Allergy Unknown Verified 03/25/20 13:13 cyclobenzaprine HCl Allergy Unknown Verified 03/25/20 13:13 [From Flexeril] egg Allergy Unknown Verified 03/25/20 13:13 latex Allergy Unknown Verified 03/25/20 13:13 Latex, Natural Rubber Allergy Unknown Verified 03/25/20 13:13 levofloxacin [From Levaquin] Allergy Anaphylaxis Verified 03/25/20 13:13 Penicillins Allergy Anaphylaxis Verified 03/25/20 13:13 Review of Systems ROS Statement: Those systems with pertinent positive or pertinent negative responses have been documented in the HPI. ROS Other: All systems not noted in ROS Statement are negative. Constitutional: Reports: chills, weakness Eyes: Denies: eye pain ENT: Denies: ear pain Respiratory: Reports: as per HPI. Denies: cough Cardiovascular: Denies: chest pain Endocrine: Reports: fatigue Gastrointestinal: Denies: abdominal pain, vomiting Genitourinary: Denies: dysuria Musculoskeletal: Denies: back pain Skin: Denies: rash Neurological: Reports: headache Past Medical History Past Medical History: Chest Pain / Angina, Diabetes Mellitus, Hypertension, Myocardial Infarction ([place]), Osteoarthritis (OA) Additional Past Medical History / Comment(s): arthritis, 01-03-14 cardiac arrest/resp failure/mi post intubation came from [facility] to our [employer] [employer] 01-07-14. Last Myocardial Infarction Date:: 01-03-14 History of Any Multi-Drug Resistant Organisms: None Reported Past Surgical History: Heart Catheterization With Stent Additional Past Surgical History / Comment(s): d&c, stent rca 01-07-14 Past Anesthesia/Blood Transfusion Reactions: No Reported Reaction Date of Last Stent Placement:: 2013 Past Psychological History: No Psychological Hx Reported Smoking Status: Never smoker Past Alcohol Use History: None Reported Past Drug Use History: None Reported - Past Family History Father Family Medical History: Cancer, Diabetes Mellitus Additional Family Medical History / Comment(s): age 70 from lung cancer Mother Additional Family Medical History / Comment(s): age 83 emphysema General Exam Limitations: no limitations General appearance: alert, in no apparent distress Head exam: Present: normocephalic Eye exam: Present: normal appearance, PERRL ENT exam: Present: normal oropharynx Neck exam: Present: normal inspection. Absent: tenderness, meningismus Respiratory exam: Present: normal lung sounds bilaterally. Absent: respiratory distress Cardiovascular Exam: Present: regular rate, normal rhythm GI/Abdominal exam: Present: soft. Absent: tenderness Extremities exam: Present: normal inspection Neurological exam: Present: alert, CN II-XII intact. Absent: motor sensory deficit Expanded Neurological exam: Present: protecting the airway Speech: Present: fluid speech Sensory exam: Upper Extremity Light Touch: Normal, Lower Extremity Light Touch: Normal Motor strength exam: RUE: 5, LUE: 5, RLE: 5, LLE: 5 Eye Response: (4) open spontaneously Motor Response: (6) obeys commands Verbal Response: (5) oriented Psychiatric exam: Present: normal affect, normal mood Skin exam: Present: normal color. Absent: rash Course Vital Signs 03/25/20 03/25/20 03/25/20 13:10 13:59 15:32 Temperature 99.8 F H 98.7 F Pulse Rate 97 94 Respiratory 18 18 18 Rate Blood Pressure 140/62 146/65 O2 Sat by Pulse 96 97 Oximetry - Reevaluation(s) Reevaluation #1: 03/25/20 17:21 Repeat EKG shows A. fib with RVR, rate 132. QRS 138. QT 350. QTC 518. Normal axis. Left bundle branch block. Nonspecific ST-T. EKG Findings - EKG Comments: EKG Findings:: Normal sinus rhythm at 80. RI 168. Her S1 38. QT 394. QTC 454. Normal axis. Left bundle branch block. Septal Q waves. Nonspecific ST- T. Medical Decision Making - Medical Decision Making Patient reevaluated and resting comfortably in bed. Chest x-ray shows interstitial changes. Patient now has developed A. fib with RVR on the monitor. EKG confirms this. Patient appears to have probably 2 disease processes, 1 febrile and secondary new-onset A. fib with RVR. Patient updated. Case discussed with Dr. Barrios, who will admit his patient. Cardiology will be consulted. Additional tests have been ordered. Patient will be placed on Cardizem and heparin drip. Patient does meet sepsis criteria diagnosed at 1715. Blood culture and lactic acid ordered. IV antibiotics will be ordered. - Lab Data Result diagrams: 03/25/20 13:35 03/25/20 13:35 Lab Results 03/25/20 03/25/20 03/25/20 Range/Units 13:35 13:35 13:35 WBC 11.4 H (3.8-10.6) k/uL RBC 3.90 (3.80-5.40) m/uL Hgb 11.1 L (11.4-16.0) gm/dL Hct 32.7 L (34.0-46.0) % MCV 83.7 (80.0-100.0) fL MCH 28.5 (25.0-35.0) pg MCHC 34.1 (31.0-37.0) g/dL RDW 15.0 (11.5-15.5) % Plt Count 139 L (150-450) k/uL MPV 10.1 Neutrophils % 77 % Lymphocytes % 10 % Monocytes % 11 % Eosinophils % 0 % Basophils % 1 % Neutrophils # 8.8 H (1.3-7.7) k/uL Lymphocytes # 1.2 (1.0-4.8) k/uL Monocytes # 1.2 H (0-1.0) k/uL Eosinophils # 0.0 (0-0.7) k/uL Basophils # 0.1 (0-0.2) k/uL PT 10.9 (9.0-12.0) sec INR 1.0 (<1.2) APTT 24.4 (22.0-30.0) sec Sodium 133 L (137-145) mmol/L Potassium 4.5 (3.5-5.1) mmol/L Chloride 99 (98-107) mmol/L Carbon Dioxide 27 (22-30) mmol/L Anion Gap 7 mmol/L BUN 34 H (7-17) mg/dL Creatinine 1.02 (0.52-1.04) mg/dL Est GFR (CKD-EPI)AfAm 62 (>60 ml/min/1.73 sqM) Est GFR (CKD-EPI)NonAf 54 (>60 ml/min/1.73 sqM) Glucose 234 H (74-99) mg/dL Plasma Lactic Acid Jona (0.7-2.0) mmol/L Calcium 9.4 (8.4-10.2) mg/dL Magnesium 2.0 (1.6-2.3) mg/dL Total Bilirubin 1.7 H (0.2-1.3) mg/dL AST 23 (14-36) U/L ALT 17 (4-34) U/L Alkaline Phosphatase 89 (38-126) U/L Lactate Dehydrogenase 508 (313-618) U/L C-Reactive Protein 58.3 H (<10.0) mg/L Total Protein 6.8 (6.3-8.2) g/dL Albumin 4.0 (3.5-5.0) g/dL Urine Color Urine Appearance (Clear) Urine pH (5.0-8.0) Ur Specific Barnard (1.001-1.035) Urine Protein (Negative) Urine Glucose (UA) (Negative) Urine Ketones (Negative) Urine Blood (Negative) Urine Nitrite (Negative) Urine Bilirubin (Negative) Urine Urobilinogen (<2.0) mg/dL Ur Leukocyte Esterase (Negative) Urine RBC (0-5) /hpf Urine WBC (0-5) /hpf Ur Squamous Epith Cells (0-4) /hpf Urine Bacteria (None) /hpf Hyaline Casts (0-2) /lpf Coronavirus (PCR) (Not Detectd) Influenza Type A RNA (Not Detectd) Influenza Type B (PCR) (Not Detectd) 03/25/20 03/25/20 03/25/20 Range/Units 13:35 15:18 15:19 WBC (3.8-10.6) k/uL RBC (3.80-5.40) m/uL Hgb (11.4-16.0) gm/dL Hct (34.0-46.0) % MCV (80.0-100.0) fL MCH (25.0-35.0) pg MCHC (31.0-37.0) g/dL RDW (11.5-15.5) % Plt Count (150-450) k/uL MPV Neutrophils % % Lymphocytes % % Monocytes % % Eosinophils % % Basophils % % Neutrophils # (1.3-7.7) k/uL Lymphocytes # (1.0-4.8) k/uL Monocytes # (0-1.0) k/uL Eosinophils # (0-0.7) k/uL Basophils # (0-0.2) k/uL PT (9.0-12.0) sec INR (<1.2) APTT (22.0-30.0) sec Sodium (137-145) mmol/L Potassium (3.5-5.1) mmol/L Chloride (98-107) mmol/L Carbon Dioxide (22-30) mmol/L Anion Gap mmol/L BUN (7-17) mg/dL Creatinine (0.52-1.04) mg/dL Est GFR (CKD-EPI)AfAm (>60 ml/min/1.73 sqM) Est GFR (CKD-EPI)NonAf (>60 ml/min/1.73 sqM) Glucose (74-99) mg/dL Plasma Lactic Acid Jona 1.0 (0.7-2.0) mmol/L Calcium (8.4-10.2) mg/dL Magnesium (1.6-2.3) mg/dL Total Bilirubin (0.2-1.3) mg/dL AST (14-36) U/L ALT (4-34) U/L Alkaline Phosphatase (38-126) U/L Lactate Dehydrogenase (313-618) U/L C-Reactive Protein (<10.0) mg/L Total Protein (6.3-8.2) g/dL Albumin (3.5-5.0) g/dL Urine Color Yellow Urine Appearance Cloudy H (Clear) Urine pH 6.0 (5.0-8.0) Ur Specific Barnard 1.013 (1.001-1.035) Urine Protein Trace H (Negative) Urine Glucose (UA) Negative (Negative) Urine Ketones Negative (Negative) Urine Blood Negative (Negative) Urine Nitrite Negative (Negative) Urine Bilirubin Negative (Negative) Urine Urobilinogen <2.0 (<2.0) mg/dL Ur Leukocyte Esterase Moderate H (Negative) Urine RBC 1 (0-5) /hpf Urine WBC 3 (0-5) /hpf Ur Squamous Epith Cells 7 H (0-4) /hpf Urine Bacteria Rare H (None) /hpf Hyaline Casts 1 (0-2) /lpf Coronavirus (PCR) Not Detected (Not Detectd) Influenza Type A RNA (Not Detectd) Influenza Type B (PCR) (Not Detectd) 03/25/20 Range/Units 16:26 WBC (3.8-10.6) k/uL RBC (3.80-5.40) m/uL Hgb (11.4-16.0) gm/dL Hct (34.0-46.0) % MCV (80.0-100.0) fL MCH (25.0-35.0) pg MCHC (31.0-37.0) g/dL RDW (11.5-15.5) % Plt Count (150-450) k/uL MPV Neutrophils % % Lymphocytes % % Monocytes % % Eosinophils % % Basophils % % Neutrophils # (1.3-7.7) k/uL Lymphocytes # (1.0-4.8) k/uL Monocytes # (0-1.0) k/uL Eosinophils # (0-0.7) k/uL Basophils # (0-0.2) k/uL PT (9.0-12.0) sec INR (<1.2) APTT (22.0-30.0) sec Sodium (137-145) mmol/L Potassium (3.5-5.1) mmol/L Chloride (98-107) mmol/L Carbon Dioxide (22-30) mmol/L Anion Gap mmol/L BUN (7-17) mg/dL Creatinine (0.52-1.04) mg/dL Est GFR (CKD-EPI)AfAm (>60 ml/min/1.73 sqM) Est GFR (CKD-EPI)NonAf (>60 ml/min/1.73 sqM) Glucose (74-99) mg/dL Plasma Lactic Acid Jona (0.7-2.0) mmol/L Calcium (8.4-10.2) mg/dL Magnesium (1.6-2.3) mg/dL Total Bilirubin (0.2-1.3) mg/dL AST (14-36) U/L ALT (4-34) U/L Alkaline Phosphatase (38-126) U/L Lactate Dehydrogenase (313-618) U/L C-Reactive Protein (<10.0) mg/L Total Protein (6.3-8.2) g/dL Albumin (3.5-5.0) g/dL Urine Color Urine Appearance (Clear) Urine pH (5.0-8.0) Ur Specific Barnard (1.001-1.035) Urine Protein (Negative) Urine Glucose (UA) (Negative) Urine Ketones (Negative) Urine Blood (Negative) Urine Nitrite (Negative) Urine Bilirubin (Negative) Urine Urobilinogen (<2.0) mg/dL Ur Leukocyte Esterase (Negative) Urine RBC (0-5) /hpf Urine WBC (0-5) /hpf Ur Squamous Epith Cells (0-4) /hpf Urine Bacteria (None) /hpf Hyaline Casts (0-2) /lpf Coronavirus (PCR) (Not Detectd) Influenza Type A RNA Not Detected (Not Detectd) Influenza Type B (PCR) Not Detected (Not Detectd) - Radiology Data Radiology results: image reviewed (Chest x-ray has diffuse interstitial change s.) Critical Care Time Critical Care Time: Yes Total Critical Care Time: 34 Disposition Clinical Impression: Atrial fibrillation with RVR, Fever, Sepsis Disposition: ADMITTED IP TO THIS HOSP Condition: Serious Is patient prescribed a controlled substance at d/c from ED?: No Referrals: Last Barrios MD [Primary Care Provider] - 1-2 days Decision Time: 17:15
[2020-03-25 14:03] LABS: Basophils # (A) 0.1 k/uL (0-0.2); Basophils % (A) 1 %; Eosinophils % (A) 0 %; HCT 32.7 % (34.0-46.0); HGB 11.1 gm/dL (11.4-16.0); Lymphocytes # (A) 1.2 k/uL (1.0-4.8); Lymphocytes % (A) 10 %; MCH 28.5 pg (25.0-35.0); MCHC 34.1 g/dL (31.0-37.0); MCV 83.7 fL (80.0-100.0); Mean Platelet Volume 10.1; Monocytes # (A) 1.2 k/uL (0-1.0); Monocytes % (A) 11 %; Neutrophils # (A) 8.8 k/uL (1.3-7.7); Neutrophils % (A) 77 %; Platelet Count 139 k/uL (150-450); WBC 11.4 k/uL (3.8-10.6)
[2020-03-25 14:19] LABS: Partial Thromboplastin Time 24.4 sec (22.0-30.0); Prothrombin Time 10.9 sec (9.0-12.0)
[2020-03-25 14:22] LABS: C Reactive Protein 58.3 mg/L (<10.0); Calcium 9.4 mg/dL (8.4-10.2); Potassium 4.5 mmol/L (3.5-5.1); Total Bilirubin 1.7 mg/dL (0.2-1.3); Total Protein 6.8 g/dL (6.3-8.2)
--- NOTE | 2020-03-25 14:37 | XR ---
EXAMINATION TYPE: XR chest 1V portable DATE OF EXAM: 03/25/2020 COMPARISON: Chest x-ray 06/29/2019 HISTORY: Headache, shortness of breath, suspected Covid pneumonia TECHNIQUE: Single frontal view of the chest is obtained. FINDINGS: There is improved aeration, volume status as compared to prior exam. No evident pneumothor ax or pleural effusion. Heart size is likely stable, upper limit of normal in size. Interstitium appe ars mildly prominent. IMPRESSION: Correlate for possible interstitial edema, interstitial pneumonia or lung disease, follo w-up as indicated.
[2020-03-25 16:09] LABS: Appearance,Urine Cloudy (Clear); Bacteria,Urine Rare /hpf; Bilirubin,Urine Negative (Negative); Blood,Urine Negative (Negative); Color,Urine Yellow; Glucose,Urine (UA) Negative (Negative); Hyaline Casts,Urine 1 /lpf (0-2); Ketones,Urine Negative (Negative); Leukocyte Esterase,Urine Moderate (Negative); Nitrite,Urine Negative (Negative); Protein,Urine Trace (Negative); RBC,Urine 1 /hpf (0-5); Specific Gravity,Urine 1.013 (1.001-1.035); Squamous Epithelial Cell,Urine 7 /hpf (0-4); Urobilinogen,Urine <2.0 mg/dL (<2.0); WBC,Urine 3 /hpf (0-5)
[2020-03-25] MEDS ORDERED: HEPARIN SODIUM,PORCINE 5,000 UNIT/ML 1 ML VIAL IV PRN (17:13)
[2020-03-25] MEDS ORDERED: HEPARIN SOD,PORK IN 0.45% NACL 25,000 UNIT in 0.45% NACL 1 250ML.BAG IV SCH (17:15)
[2020-03-25] MEDS ORDERED: CEFEPIME 2 GM in SODIUM CHLORIDE 0.9% 100 ML IVPB STA (17:17)
[2020-03-25] MEDS ORDERED: PNEUMONIA PROTOCOL UTILIZED 1 EACH MISC PO PRN (17:17)
[2020-03-25] MEDS ORDERED: ASPIRIN 81 MG PO STA (17:19)
[2020-03-25] MEDS ORDERED: DILTIAZEM 125 MG in SODIUM CHLORIDE 0.9% 100 ML IV SCH (17:30)
[2020-03-25] MEDS: HEPARIN SODIUM,PORCINE 5,000 UNIT/ML 1 ML VIAL IV ONE ×2 (18:33→18:38)
[2020-03-25] MEDS: SODIUM CHLORIDE 0.9% 1,000 ML IV SCH (18:33)
[2020-03-25 19:48] LABS: Ferritin 289.7 ng/mL (10.0-291.0)
[2020-03-25] MEDS: ALBUTEROL HFA INHALER INHALATION SCH (20:07)
[2020-03-25] MEDS: FUROSEMIDE 40 MG TAB PO SCH (22:22)
[2020-03-25] MEDS: METOPROLOL TARTRATE 50 MG TAB PO SCH (22:22)
[2020-03-26] MEDS: CEFEPIME 2 GM in SODIUM CHLORIDE 0.9% 100 ML IVPB SCH ×2 (00:35→08:46)
[2020-03-26] MEDS: ALBUTEROL HFA INHALER INHALATION SCH ×3 (02:17→11:00)
[2020-03-26] MEDS: SODIUM CHLORIDE 0.9% 1,000 ML IV SCH (03:12)
[2020-03-26] MEDS: METOPROLOL TARTRATE 50 MG TAB PO SCH (06:01)
[2020-03-26 06:13] LABS: Glucose,Whole Blood 305 mg/dL (75-99)
[2020-03-26 07:12] LABS: Basophils % (A) 0 %; Eosinophils % (A) 0 %; HCT 29.9 % (34.0-46.0); HGB 10.1 gm/dL (11.4-16.0); Lymphocytes % (A) 9 %; MCH 29.1 pg (25.0-35.0); MCHC 33.8 g/dL (31.0-37.0); Mean Platelet Volume 10.4; Monocytes # (A) 0.8 k/uL (0-1.0); Monocytes % (A) 8 %; Neutrophils # (A) 8.5 k/uL (1.3-7.7); Neutrophils % (A) 81 %; Platelet Count 116 k/uL (150-450); RBC 3.48 m/uL (3.80-5.40); RDW 15.2 % (11.5-15.5); WBC 10.4 k/uL (3.8-10.6)
[2020-03-26 07:27] LABS: Cholesterol 185 mg/dL (<200); HDL Cholesterol 60 mg/dL (40-60); LDL Cholesterol,Calculated 111 mg/dL (0-99); Triglycerides 68 mg/dL (<150)
[2020-03-26] MEDS ORDERED: INSULIN ASPART (NovoLOG) 100 UNIT/ML VIAL SQ SCH (07:30)
--- NOTE | 2020-03-26 08:06 | XR ---
EXAMINATION TYPE: XR chest 1V portable DATE OF EXAM: 03/26/2020 Comparison: 03/25/2020 Clinical History: 74-year-old female pneumonia Findings: Heart borderline enlarged. Mild hyperinflation. Mild interstitial prominence. Some mild patchy right basilar opacity. No pleural effusion. Impression: COPD and borderline heart size. Mild patchy right basilar opacity probably atelectasis. Follow-up can be performed to exclude early pneumonia.
--- NOTE | 2020-03-26 08:36 | P.HPIM ---
History of Present Illness H&P Date: 03/26/20 Chief Complaint: Palpitations. This is a history of physical 74-year-old white female who had several-day history of worsening shortness of breath. Question element of pneumonia on workup. However, she also was admitted due to H fibrillation with RVR. She is currently on Cardizem drip doing well. Empiric antibiotic treatment has been started. Covid testing is negative at this time. The patient is now admitted and being stabilizes appropriately. No significant syncopal episode. No chest pain per se until told to me today. Known previous history of CAD. 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 Last Myocardial Infarction Date:: 01-03-14 History of Any Multi-Drug Resistant Organisms: None Reported Past Surgical History: Heart Catheterization With Stent Additional Past Surgical History / Comment(s): d&c, stent rca 01-07-14 Past Anesthesia/Blood Transfusion Reactions: No Reported Reaction Date of Last Stent Placement:: 2013 Past Psychological History: No Psychological Hx Reported Smoking Status: Former smoker Past Alcohol Use History: None Reported Additional Past Alcohol Use History / Comment(s): started smoking at age 27, smoked 1/2 ppd quit 2002. Past Drug Use History: None Reported - Past Family History Father Family Medical History: Cancer, Diabetes Mellitus Additional Family Medical History / Comment(s): age 70 from lung cancer Mother Additional Family Medical History / Comment(s): age 83 emphysema Medications and Allergies Home Medications Medication Instructions Recorded Confirmed Type RX: glipiZIDE [Glipizide ER] 20 mg PO QAM 01/08/14 03/25/20 History RX: Ferrous Sulfate [Iron (65 MG 325 mg PO DAILY 02/12/19 03/25/20 History Elemental)] RX: Cholecalciferol [Vitamin D3 2,000 unit PO DAILY@1200 06/29/19 03/25/20 History (10 Mcg = 400 Iu)] RX: Aspirin 81 mg PO DAILY #30 chew 07/01/19 03/25/20 Rx RX: Furosemide [Lasix] 40 mg PO BID #60 tab 07/01/19 03/25/20 Rx Ascorbic Acid [Vitamin C] 500 mg PO DAILY 03/25/20 03/25/20 History L.acidoph,Paracasei, B.lactis 1 tab PO DAILY 03/25/20 03/25/20 History [Probiotic] RX: Enalapril Maleate [Vasotec] 5 mg PO BID 03/25/20 03/25/20 History RX: Metoprolol Tartrate [Lopressor] 50 mg PO BID-W/MEALS 03/25/20 03/25/20 History RX: Vitamin B Complex 1 cap PO DAILY 03/25/20 03/25/20 History Allergies Allergy/AdvReac Type Severity Reaction Status Date / Time Corticosteroids Allergy Unknown Unknown Verified 03/25/20 18:06 (Glucocorticoids) azithromycin [From Zithromax] Allergy Anaphylaxis Verified 03/25/20 18:06 banana Allergy Unknown Verified 03/25/20 18:06 carisoprodol [From Soma] Allergy Unknown Verified 03/25/20 18:06 ciprofloxacin [From Cipro] Allergy Unknown Verified 03/25/20 18:06 cortisone [Cortisone] Allergy Unknown Verified 03/25/20 18:06 cyclobenzaprine HCl Allergy Unknown Verified 03/25/20 18:06 [From Flexeril] egg Allergy Unknown Verified 03/25/20 18:06 latex Allergy Unknown Verified 03/25/20 18:06 Latex, Natural Rubber Allergy Unknown Verified 03/25/20 18:06 levofloxacin [From Levaquin] Allergy Anaphylaxis Verified 03/25/20 18:06 Penicillins Allergy Anaphylaxis Verified 03/25/20 18:06 Physical Exam Vitals: Vital Signs Temp Pulse Pulse Resp BP BP Pulse Ox 03/26/20 04:00 98.8 F 109 H 20 132/86 94 L 03/26/20 01:57 82 18 03/25/20 23:39 82 18 118/75 96 03/25/20 23:37 96 16 03/25/20 22:04 134 H 03/25/20 21:22 128 H 16 107/65 98 03/25/20 19:46 98.4 F 96 18 112/70 95 03/25/20 18:39 134 H 16 127/84 97 03/25/20 15:32 98.7 F 94 18 146/65 97 03/25/20 13:59 18 03/25/20 13:10 99.8 F H 97 18 140/62 96 Intake and Output 03/25/20 03/26/20 03/26/20 22:59 06:59 14:59 Intake Total 32.250 740 780 Balance 32.250 740 780 Intake: Intake, IV Titration 32.250 500 Amount Cefepime 2 gm In Sodium 100 Chloride 0.9% 100 ml @ 25 mls/hr IVPB Q8HR GARRY Rx# :[id number] Diltiazem 125 mg In 32.250 Sodium Chloride 0.9% 100 ml @ 5 MG/HR 5 mls/hr IV .Q24H GARRY Rx#:[id number] Sodium Chloride 0.9% 1, 400 000 ml @ 100 mls/hr IV . Q10H GARRY Rx#:[id number] Oral 240 780 Other: # Voids 3 1 Weight 81.193 kg 84.1 kg - Constitutional General appearance: no acute distress - EENT Eyes: EOMI - Neck Neck: no lymphadenopathy - Respiratory Respiratory: bilateral: diminished - Cardiovascular Rhythm: irregularly irregular Heart sounds: normal: S1, S2 Abnormal Heart Sounds: no S3 Gallop - Gastrointestinal General gastrointestinal: soft, no tenderness - Integumentary Integumentary: no cellulitis - Neurologic No overt focal deficits. Neurologic: CNII-XII intact Results CBC & Chem 7: 03/26/20 06:44 03/25/20 13:35 Labs: Abnormal Lab Results - Last 24 Hours (Table) 03/25/20 03/25/20 03/25/20 Range/Units 13:35 13:35 13:35 WBC 11.4 H (3.8-10.6) k/uL RBC (3.80-5.40) m/uL Hgb 11.1 L (11.4-16.0) gm/dL Hct 32.7 L (34.0-46.0) % Plt Count 139 L (150-450) k/uL Neutrophils # 8.8 H (1.3-7.7) k/uL Monocytes # 1.2 H (0-1.0) k/uL Sodium 133 L (137-145) mmol/L BUN 34 H (7-17) mg/dL Glucose 234 H (74-99) mg/dL POC Glucose (mg/dL) (75-99) mg/dL Total Bilirubin 1.7 H (0.2-1.3) mg/dL C-Reactive Protein 58.3 H (<10.0) mg/L LDL Cholesterol, Calc (0-99) mg/dL Procalcitonin 0.15 H (0.02-0.09) ng/mL Urine Appearance (Clear) Urine Protein (Negative) Ur Leukocyte Esterase (Negative) Ur Squamous Epith Cells (0-4) /hpf Urine Bacteria (None) /hpf 03/25/20 03/26/20 03/26/20 Range/Units 15:19 06:11 06:44 WBC (3.8-10.6) k/uL RBC 3.48 L (3.80-5.40) m/uL Hgb 10.1 L (11.4-16.0) gm/dL Hct 29.9 L (34.0-46.0) % Plt Count 116 L (150-450) k/uL Neutrophils # 8.5 H (1.3-7.7) k/uL Monocytes # (0-1.0) k/uL Sodium (137-145) mmol/L BUN (7-17) mg/dL Glucose (74-99) mg/dL POC Glucose (mg/dL) 305 H (75-99) mg/dL Total Bilirubin (0.2-1.3) mg/dL C-Reactive Protein (<10.0) mg/L LDL Cholesterol, Calc (0-99) mg/dL Procalcitonin (0.02-0.09) ng/mL Urine Appearance Cloudy H (Clear) Urine Protein Trace H (Negative) Ur Leukocyte Esterase Moderate H (Negative) Ur Squamous Epith Cells 7 H (0-4) /hpf Urine Bacteria Rare H (None) /hpf 03/26/20 Range/Units 06:44 WBC (3.8-10.6) k/uL RBC (3.80-5.40) m/uL Hgb (11.4-16.0) gm/dL Hct (34.0-46.0) % Plt Count (150-450) k/uL Neutrophils # (1.3-7.7) k/uL Monocytes # (0-1.0) k/uL Sodium (137-145) mmol/L BUN (7-17) mg/dL Glucose (74-99) mg/dL POC Glucose (mg/dL) (75-99) mg/dL Total Bilirubin (0.2-1.3) mg/dL C-Reactive Protein (<10.0) mg/L LDL Cholesterol, Calc 111 H (0-99) mg/dL Procalcitonin (0.02-0.09) ng/mL Urine Appearance (Clear) Urine Protein (Negative) Ur Leukocyte Esterase (Negative) Ur Squamous Epith Cells (0-4) /hpf Urine Bacteria (None) /hpf Thrombosis Risk Factor Assmnt - Choose All That Apply Any of the Below Risk Factors Present?: Yes Each Factor Represents 1 point: Swollen legs (current) Other Risk Factors: Yes Each Risk Factor Represents 3 Points: Age 75 years or older Other congenital or acquired thrombophilia - If yes, enter type in comment: No Thrombosis Risk Factor Assessment Total Risk Factor Score: 4 Thrombosis Risk Factor Assessment Level: Moderate Risk Assessment and Plan (1) Atrial fibrillation with RVR Current Visit: Yes Status: Acute Code(s): I48.91 - UNSPECIFIED ATRIAL FIBRILLATION SNOMED Code(s): 563277634465721 (2) Community acquired pneumonia Current Visit: No Status: Acute Code(s): J18.9 - PNEUMONIA, UNSPECIFIED ORGANISM SNOMED Code(s): 541463255 Plan: Placed on appropriate sliding scale. Reconcile home medications. Appreciate cardiology input.
[2020-03-26] MEDS: FUROSEMIDE 40 MG TAB PO SCH (08:47)
[2020-03-26 08:51] VITALS: BP 121/71; PULSE 76; RESP 18; TEMP 98.6
[2020-03-26] MEDS ORDERED: ASCORBIC ACID 500 MG TAB PO SCH (09:00)
[2020-03-26] MEDS ORDERED: NON FORMULARY DRUG (L.Acidoph,Paracasei, B.Lactis [Probiotic] 1 EACH Capsule) PO SCH (09:00)
[2020-03-26] MEDS ORDERED: FERROUS SULFATE 325 MG TAB PO SCH (09:00)
[2020-03-26] MEDS ORDERED: ASPIRIN 325 MG TAB PO SCH (09:00)
[2020-03-26] MEDS ORDERED: NON FORMULARY DRUG (Vitamin B Complex [Vitamin B Complex] 1 EACH Capsule) PO SCH (09:00)
[2020-03-26] MEDS ORDERED: glipiZIDE 10 MG TAB PO SCH (09:00)
[2020-03-26] MEDS ORDERED: lisinopriL 20 MG TAB PO SCH (09:00)
--- NOTE | 2020-03-26 10:47 | ECHOF ---
Referral Reason:New-onset A. fib, fever MEASUREMENTS -------- HEIGHT: 152.4 cm WEIGHT: 83.9 kg BP: 121/71 RVIDd: 3.3 cm (< 3.3) IVSd: 1.3 cm (0.6 - 1.1) LVIDd: 4.9 cm (3.9 - 5.3) LVPWd: 1.3 cm (0.6 - 1.1) IVSs: 1.5 cm LVIDs: 3.9 cm LVPWs: 1.6 cm LAESV Index (A-L): 38.16 ml/m Ao Diam: 2.4 cm (2.0 - 3.7) AV Cusp: 1.8 cm (1.5 - 2.6) LA Diam: 4.5 cm (2.7 - 3.8) MV EXCURSION: 17.153 mm (> 18.000) MV EF SLOPE: 93 mm/s (70 - 150) EPSS: 1.0 cm MV E Rafael: 1.35 m/s MV DecT: 187 ms MV A Rafael: 0.99 m/s MV E/A Ratio: 1.37 RAP: 20.00 mmHg RVSP: 73.01 mmHg FINDINGS -------- Sinus rhythm. This was a technically adequate study. The left ventricular size is normal. There is mild concentric left ventricular hypertrophy. There is moderate global hypokinesis of LV . Overall left ventricular systolic function is moderately im paired with, an EF between 35 - 40 %. Increased Lap Grade II Diastolic Dysfunction. The right ventricle is mildly enlarged. LA is moderately dilated 34-39 ml/m2 The right atrium is mildly enlarged. Attempted Lumison Interatrial and interventricular septum intact. The aortic valve is trileaflet and appears structurally normal. There is mild aortic valve sclerosi s. There is no evidence of aortic regurgitation. There is no evidence of aortic stenosis. [id number] mitral regurgitation is present. Moderate to severe tricuspid regurgitation present. There is severe pulmonary hypertension. The r ight ventricular systolic pressure, as measured by Doppler, is 73.01mmHg. There is no pulmonic regurgitation present. The aortic root size is normal. The inferior vena cava is dilated with poor inspiratory collapse which is consistent with estimated r ight atrial pressure of 20 mmHg. There is no pericardial effusion. CONCLUSIONS -------- 1. The left ventricular size is normal. 2. There is mild concentric left ventricular hypertrophy. 3. There is moderate global hypokinesis of LV . 4. Overall left ventricular systolic function is moderately impaired with, an EF between 35 - 40 %. 5. Increased Lap Grade II Diastolic Dysfunction. 6. The right ventricle is mildly enlarged. 7. LA is moderately dilated 34-39 ml/m2 8. The right atrium is mildly enlarged. 9. [id number] mitral regurgitation is present. 10. Moderate to severe tricuspid regurgitation present. 11. There is severe pulmonary hypertension. 12. The right ventricular systolic pressure, as measured by Doppler, is 73.01mmHg. 13. The inferior vena cava is dilated with poor inspiratory collapse which is consistent with estimat ed right atrial pressure of 20 mmHg. INDUSTRIAL ELECT[employer] TECHNICIAN: Nenita Herrera RDCS
[2020-03-26 11:48] LABS: Glucose,Whole Blood 222 mg/dL (75-99)
[2020-03-26] MEDS ORDERED: CHOLECALCIFEROL 400 UNIT TAB PO SCH (12:00)
--- NOTE | 2020-03-26 12:10 | P.DS ---
Providers Date of admission: 03/25/20 17:17 Expected date of discharge: 03/26/20 Attending physician: Last Barrios Consults: 03/25/20 17:17 Consult Physician Routine Consulting Provider: Mira Oswald Consult Reason/Comments: Fever, evaluate for sepsis Do you want consulting provider notified?: Yes 03/25/20 17:19 Consult Physician Urgent Consulting Provider: José Ybarra Consult Reason/Comments: New-onset A. fib with RVR Do you want consulting provider notified?: Yes Primary care physician: Last Barrios Hospital Course: Final Diagnoses (1) Atrial fibrillation with RVR, converted to sinus rhythm. Declined anticoagulation. Current Visit: Yes Status: Acute Code(s): I48.91 - UNSPECIFIED ATRIAL FIBRILLATION SNOMED Code(s): 340542190763342 (2) Community acquired pneumonia Current Visit: No Status: Acute Code(s): J18.9 - PNEUMONIA, UNSPECIFIED ORGANISM SNOMED Code(s): 724864341 Hospital course: This is a history of physical 74-year-old white female who had several-day history of worsening shortness of breath. Question element of pneumonia on workup. However, she also was admitted due to H fibrillation with RVR. She is currently on Cardizem drip doing well. Empiric antibiotic treatment has been started. Covid testing is negative at this time. The patient is now admitted and being stabilizes appropriately. No significant syncopal episode. No chest pain per se until told to me today. Evaluated by cardiology, with further adjustments in beta chely pending. Patient declining anticoagulation. Patient cleared by cardiology for discharge. She will be discharged home in a stable condition today with guarded prognosis, pending final DC recommendations per cardiology. The impression and plan of care has been dictated as directed. : I performed a history and examination of this patient, discussed the same with the dictator. I agree with the dictator's note ,documented as a scribe. Any additional findings or plans will be noted. Patient Condition at Discharge: Stable Plan - Discharge Summary Discharge Rx Participant: No New Discharge Prescriptions: New Doxycycline [Vibramycin] 100 mg PO BID 1 Days #10 capsule No Action glipiZIDE [Glipizide ER] 20 mg PO QAM Ferrous Sulfate [Iron (65 MG Elemental)] 325 mg PO DAILY Cholecalciferol [Vitamin D3 (10 Mcg = 400 Iu)] 2,000 unit PO DAILY@1200 Furosemide [Lasix] 40 mg PO BID #60 tab Aspirin 81 mg PO DAILY #30 chew Vitamin B Complex 1 cap PO DAILY Ascorbic Acid [Vitamin C] 500 mg PO DAILY Metoprolol Tartrate [Lopressor] 50 mg PO BID-W/MEALS Enalapril Maleate [Vasotec] 5 mg PO BID L.acidoph,Paracasei, B.lactis [Probiotic] 1 tab PO DAILY Discharge Medication List glipiZIDE [Glipizide ER] 20 mg PO QAM 01/08/14 [History] Ferrous Sulfate [Iron (65 MG Elemental)] 325 mg PO DAILY 02/12/19 [History] Cholecalciferol [Vitamin D3 (10 Mcg = 400 Iu)] 2,000 unit PO DAILY@1200 06/29/19 [History] Aspirin 81 mg PO DAILY #30 chew 07/01/19 [Rx] Furosemide [Lasix] 40 mg PO BID #60 tab 07/01/19 [Rx] Ascorbic Acid [Vitamin C] 500 mg PO DAILY 03/25/20 [History] Enalapril Maleate [Vasotec] 5 mg PO BID 03/25/20 [History] L.acidoph,Paracasei, B.lactis [Probiotic] 1 tab PO DAILY 03/25/20 [History] Metoprolol Tartrate [Lopressor] 50 mg PO BID-W/MEALS 03/25/20 [History] Vitamin B Complex 1 cap PO DAILY 03/25/20 [History] Doxycycline [Vibramycin] 100 mg PO BID 1 Days #10 capsule 03/26/20 [Rx] Follow up Appointment(s)/Referral(s): Last Barrios MD [Primary Care Provider] - 03/31/20 11:30 am Mina Chavez MD [STAFF PHYSICIAN] - 04/04/20 2:30 pm Ambulatory/Diagnostic Orders: Complete Blood Count w/diff [LAB.AMB] Time Frame: 3 Days, Location: None Selected Patient Instructions/Handouts: Heart Failure (DC), A-fib (Atrial Fibrillation) (DC) Activity/Diet/Wound Care/Special Instructions: Patient declining anticoagulation. Pending final DC recommendations and clear ance from cardiology. Confirm follow-up appointment with cardiology prior to discharge.
--- NOTE | 2020-03-26 13:51 | P.CRDCN ---
History of Present Illness Consult date: 03/26/20 History of present illness: CHIEF COMPLAINT: A. fib with RVR HISTORY OF PRESENT ILLNESS: This is a 74-year-old female with a past medical history significant for hypertension, hyperlipidemia, former nicotine dependence, coronary artery disease with previous stenting to the RCA and mid LAD, and ischemic cardiomyopathy with previous ejection fraction of 25-30%. Patient follows in the office with Dr. Chavez. We have been asked to see the patient in consultation for new onset A. fib with RVR. Patient examined this morning at the bedside. Patient originally presented to the hospital secondary to weakness and feeling unwell. She denied any chest pain. Denies shortness of breath. Denies palpitations. Patient was found to be in atrial fibrillation. She denies a history of A. fib. She was started on a Cardizem drip. This morning the patient has since converted to sinus mechanism with heart rate in the 70s. Patient refused IV heparin. DIAGNOSTICS: EKG reveals A. fib with RVR. Heart rate 132. Left bundle-branch block. Chest xray COPD and borderline heart size. Mild patchy right basilar opacity probably atelectasis. Laboratory data: WBC 10.4. Hemoglobin 10.1. Platelet count 116. Sodium 133. Potassium 4.5. BUN 34. Creatinine 1.02. Magnesium 2.0. Lactic acid 1.0. BNP 5680. Troponin negative 2. Current home cardiac medications include metoprolol 50 mg twice a day, enalapril 5 mg twice a day, Lasix 40 mg twice a day, and aspirin 81 mg daily Echocardiogram completed reveals ejection fraction 35-40%, moderate to severe mitral regurgitation, moderate to severe tricuspid regurgitation and severe pulmonary hypertension REVIEW OF SYSTEMS: At the time of my exam: CONSTITUTIONAL: Denies fever or chills. HEENT: Denies blurred vision, vision changes, or eye pain. Denies hemoptysis CARDIOVASCULAR: Denies chest pain, orthopnea, PND or palpitations RESPIRATORY: No shortness of breath. GASTROINTESTINAL: Denies abdominal pain. Denies nausea or vomiting. HEMATOLOGIC: Denies bleeding disorders. GENITOURINARY: Denies any blood in urine. SKIN: Denies pruitis. Denies rash. PHYSICAL EXAM: VITAL SIGNS: Reviewed. GENERAL: Well-developed in no acute distress. HEENT: Head is normocephalic. Pupils are equal, round. Sclerae anicteric. Mucous membranes of the mouth are moist. Neck supple. No JVD or thyromegaly LUNGS: Respirations even and unlabored. Lungs with mild expiratory wheezing noted. HEART: Regular rate and rhythm. S1 and S2 heard. Systolic murmur noted. ABDOMEN: Soft. Nondistended. Nontender. EXTREMITIES: Normal range of motion. No clubbing or cyanosis. Peripheral pulses intact. No lower extremity edema NEUROLOGIC: Awake and alert. Oriented x 3. ASSESSMENT: New onset atrial fibrillation with RVR, currently maintaining sinus mechanism Coronary artery disease with previous stent to the RCA, date unknown, and stent to LAD, February 2019 Ischemic cardiomyopathy, ejection fraction 35-40% Hypertension Hyperlipidemia Former nicotine dependence PLAN: Echocardiogram obtained and reviewed revealing improving LV function from prior imaging Discussed anticoagulation with patient. Patient is adamantly refusing anticoagulation. Patient is very hesitant to have any of her medications adjusted. Will continue current dose of metoprolol. Patient is stable for discharge home today. She is to follow up outpatient with Dr. Chavez. Nurse practitioner note has been reviewed by physician. Signing provider agrees with the documented findings, assessment, and plan of care. 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 Last Myocardial Infarction Date:: 01-03-14 History of Any Multi-Drug Resistant Organisms: None Reported Past Surgical History: Heart Catheterization With Stent Additional Past Surgical History / Comment(s): d&c, stent rca 01-07-14 Past Anesthesia/Blood Transfusion Reactions: No Reported Reaction Date of Last Stent Placement:: 2013 Past Psychological History: No Psychological Hx Reported Smoking Status: Former smoker Past Alcohol Use History: None Reported Additional Past Alcohol Use History / Comment(s): started smoking at age 27, smoked 1/2 ppd quit 2002. Past Drug Use History: None Reported - Past Family History Father Family Medical History: Cancer, Diabetes Mellitus Additional Family Medical History / Comment(s): age 70 from lung cancer Mother Additional Family Medical History / Comment(s): age 83 emphysema Medications and Allergies Home Medications Medication Instructions Recorded Confirmed Type glipiZIDE [Glipizide ER] 20 mg PO QAM 01/08/14 03/25/20 History Ferrous Sulfate [Iron (65 MG 325 mg PO DAILY 02/12/19 03/25/20 History Elemental)] Cholecalciferol [Vitamin D3 (10 2,000 unit PO DAILY@1200 06/29/19 03/25/20 History Mcg = 400 Iu)] Aspirin 81 mg PO DAILY #30 chew 07/01/19 03/25/20 Rx Furosemide [Lasix] 40 mg PO BID #60 tab 07/01/19 03/25/20 Rx Ascorbic Acid [Vitamin C] 500 mg PO DAILY 03/25/20 03/25/20 History Enalapril Maleate [Vasotec] 5 mg PO BID 03/25/20 03/25/20 History L.acidoph,Paracasei, B.lactis 1 tab PO DAILY 03/25/20 03/25/20 History [Probiotic] Metoprolol Tartrate [Lopressor] 50 mg PO BID-W/MEALS 03/25/20 03/25/20 History Vitamin B Complex 1 cap PO DAILY 03/25/20 03/25/20 History Doxycycline [Vibramycin] 100 mg PO BID 1 Days #10 capsule 03/26/20 Rx Allergies Allergy/AdvReac Type Severity Reaction Status Date / Time Corticosteroids Allergy Unknown Unknown Verified 03/25/20 18:06 (Glucocorticoids) azithromycin [From Zithromax] Allergy Anaphylaxis Verified 03/25/20 18:06 banana Allergy Unknown Verified 03/25/20 18:06 carisoprodol [From Soma] Allergy Unknown Verified 03/25/20 18:06 ciprofloxacin [From Cipro] Allergy Unknown Verified 03/25/20 18:06 cortisone [Cortisone] Allergy Unknown Verified 03/25/20 18:06 cyclobenzaprine HCl Allergy Unknown Verified 03/25/20 18:06 [From Flexeril] egg Allergy Unknown Verified 03/25/20 18:06 latex Allergy Unknown Verified 03/25/20 18:06 Latex, Natural Rubber Allergy Unknown Verified 03/25/20 18:06 levofloxacin [From Levaquin] Allergy Anaphylaxis Verified 03/25/20 18:06 Penicillins Allergy Anaphylaxis Verified 03/25/20 18:06 Physical Exam Vitals: Vital Signs Temp Pulse Pulse Resp BP BP Pulse Ox 03/26/20 08:00 98.6 F 76 18 121/71 94 L 03/26/20 04:00 98.8 F 109 H 20 132/86 94 L 03/26/20 01:57 82 18 03/25/20 23:39 82 18 118/75 96 03/25/20 23:37 96 16 03/25/20 22:04 134 H 03/25/20 21:22 128 H 16 107/65 98 03/25/20 19:46 98.4 F 96 18 112/70 95 03/25/20 18:39 134 H 16 127/84 97 03/25/20 15:32 98.7 F 94 18 146/65 97 03/25/20 13:59 18 Intake and Output 03/25/20 03/26/20 03/26/20 22:59 06:59 14:59 Intake Total 32.250 740 780 Balance 32.250 740 780 Intake: Intake, IV Titration 32.250 500 Amount Cefepime 2 gm In Sodium 100 Chloride 0.9% 100 ml @ 25 mls/hr IVPB Q8HR GARRY Rx# :[id number] Diltiazem 125 mg In 32.250 Sodium Chloride 0.9% 100 ml @ 5 MG/HR 5 mls/hr IV .Q24H GARRY Rx#:[id number] Sodium Chloride 0.9% 1, 400 000 ml @ 100 mls/hr IV . Q10H GARRY Rx#:[id number] Oral 240 780 Other: # Voids 3 1 Weight 81.193 kg 84.1 kg Results 03/26/20 06:44 03/25/20 13:35 Cardiac Enzymes 03/25/20 03/25/20 03/25/20 Range/Units 13:35 18:30 21:40 AST 23 (14-36) U/L Lactate Dehydrogenase 508 (313-618) U/L Troponin I 0.030 0.028 (0.000-0.034) ng/mL Coagulation 03/25/20 Range/Units 13:35 PT 10.9 (9.0-12.0) sec APTT 24.4 (22.0-30.0) sec Lipids 03/26/20 Range/Units 06:44 Triglycerides 68 (<150) mg/dL Cholesterol 185 (<200) mg/dL HDL Cholesterol 60 (40-60) mg/dL CBC 03/25/20 03/26/20 Range/Units 13:35 06:44 WBC 11.4 H 10.4 (3.8-10.6) k/uL RBC 3.90 3.48 L (3.80-5.40) m/uL Hgb 11.1 L 10.1 L (11.4-16.0) gm/dL Hct 32.7 L 29.9 L (34.0-46.0) % Plt Count 139 L 116 L (150-450) k/uL Comprehensive Metabolic Panel 03/25/20 Range/Units 13:35 Sodium 133 L (137-145) mmol/L Potassium 4.5 (3.5-5.1) mmol/L Chloride 99 (98-107) mmol/L Carbon Dioxide 27 (22-30) mmol/L BUN 34 H (7-17) mg/dL Creatinine 1.02 (0.52-1.04) mg/dL Glucose 234 H (74-99) mg/dL Calcium 9.4 (8.4-10.2) mg/dL AST 23 (14-36) U/L ALT 17 (4-34) U/L Alkaline Phosphatase 89 (38-126) U/L Total Protein 6.8 (6.3-8.2) g/dL Albumin 4.0 (3.5-5.0) g/dL Current Medications Generic Name Dose Route Start Last Admin Trade Name Freq PRN Reason Stop Dose Admin Acetaminophen 1,000 mg 03/25/20 13:25 Acetaminophen Tab 500 Mg Tab PO Q6HR PRN Fever>101 Albuterol Sulfate 2 puff 03/25/20 20:00 03/26/20 11:00 Albuterol Hfa Inhaler INHALATION Not Given RT-Q6H GARRY Albuterol Sulfate 2 puff 03/25/20 13:25 Albuterol Hfa Inhaler INHALATION RT-Q6H PRN Shortness Of Breath Or Wheezing Ascorbic Acid 500 mg 03/26/20 09:00 03/26/20 08:47 Ascorbic Acid 500 Mg Tab PO 500 mg DAILY GARRY Administration Aspirin 81 mg 03/27/20 09:00 Aspirin 81 Mg PO DAILY GARRY Cholecalciferol 2,000 unit 03/26/20 12:00 03/26/20 08:47 Cholecalciferol 400 Unit Tab PO 2,000 unit DAILY@1200 GARRY Administration Ferrous Sulfate 325 mg 03/26/20 09:00 03/26/20 08:47 Ferrous Sulfate 325 Mg Tab PO 325 mg DAILY GARRY Administration Furosemide 40 mg 03/25/20 21:30 03/26/20 08:47 Furosemide 40 Mg Tab PO 40 mg BID GARRY Administration Glipizide 10 mg 03/26/20 09:00 03/26/20 06:43 Glipizide 10 Mg Tab PO 10 mg BID GARRY Administration Heparin Sodium (Porcine) 0 unit 03/25/20 17:13 Heparin Sodium,Porcine 5,000 Unit/Ml 1 Ml Vial IV PER PROTOCOL PRN Low PTT Protocol Diltiazem HCl 125 mg/ Sodium 125 mls @ 5 mls/hr 03/25/20 17:30 03/25/20 21:21 Chloride IV 15 mg/hr .Q24H GARRY 15 mls/hr Infusion 5 MG/HR Heparin Sodium/Sodium Chloride 250 mls @ 9.743 mls/hr 03/25/20 17:15 03/25/20 18:36 25,000 unit/ Sodium Chloride IV Not Given .Q24H GARRY Protocol 12 UNITS/KG/HR Sodium Chloride 1,000 mls @ 100 mls/hr 03/25/20 17:30 03/26/20 03:12 Saline 0.9% IV Not Given .Q10H GARRY Cefepime HCl 2 gm/ Sodium 100 mls @ 25 mls/hr 03/26/20 00:00 03/26/20 08:46 Chloride IVPB 04/02/20 00:01 25 mls/hr Q8HR GARRY Administration Insulin Aspart 0 unit 03/26/20 07:30 03/26/20 06:39 Insulin Aspart (Novolog) 100 Unit/Ml Vial SQ Not Given ACHS [facility] Protocol Lisinopril 20 mg 03/26/20 09:00 03/26/20 08:47 Lisinopril 20 Mg Tab PO 20 mg DAILY GARRY Administration Metoprolol Tartrate 50 mg 03/25/20 21:30 03/26/20 06:01 Metoprolol Tartrate 50 Mg Tab PO 50 mg BID-W/MEALS GARRY Administration Miscellaneous Information 1 each 03/25/20 17:17 Pneumonia Protocol Utilized 1 Each Misc PO ONCE PRN Per Protocol Intake and Output 03/25/20 03/26/20 03/26/20 22:59 06:59 14:59 Intake Total 32.250 740 780 Balance 32.250 740 780 Intake: Intake, IV Titration 32.250 500 Amount Cefepime 2 gm In Sodium 100 Chloride 0.9% 100 ml @ 25 mls/hr IVPB Q8HR GARRY Rx# :[id number] Diltiazem 125 mg In 32.250 Sodium Chloride 0.9% 100 ml @ 5 MG/HR 5 mls/hr IV .Q24H GARRY Rx#:[id number] Sodium Chloride 0.9% 1, 400 000 ml @ 100 mls/hr IV . Q10H GARRY Rx#:[id number] Oral 240 780 Other: # Voids 3 1 Weight 81.193 kg 84.1 kg 03/26/20 06:44 03/25/20 13:35
[2020-03-27] MEDS ORDERED: ASPIRIN 81 MG PO SCH (09:00)
--- NOTE | 2020-04-02 02:11 | CDI ---
Documentation Clarification Form Date: 04/02/2020 From: Alex Art Phone: If you have a question about this query, please contact Mildred Victoria, [employer] at [phone] between 8am and 5pm. Admit Date: 03/25/2020 05:17:00 PM Patient Name: Vicky Nixon V Visit Number: [id number] Discharge Date: 03/26/2020 02:07:00 PM ATTENTION: The Clinical Documentation Specialists (CDI) and [facility] Coding Staff appreciate your assistance in clarifying documentation. Please respond to the clarification below the line at the bottom and electronically sign. The CDI & [facility] Coding staff will review the response and follow-up if needed. Please note: Queries are made part of the Legal Health Record. If you have any questions, please contact the author of this message via ITS. Dr. Last Barrios MD., The patient presented with the Atrial fibrillation with RVR, Fever, Sepsis. History/Risk Factors: Chest Pain / Angina, Diabetes Mellitus, Hypertension, Myocardial Infarction (NE), Osteoarthritis (OA) Clinical Indicators:This is a history of physical 74-year-old white female who had several-day history of worsening shortness of breath.Question element of pneumonia on workup.However, she also was admitted due to H fibrillation with RVR. WBC : 11.4H Blood cultures: NG 144 Vitals signs on admission: Temperature 99.8 F H 98.7 F Pulse Rate 97 94 Respiratory 18 18 18 Rate Blood Pressure 140/62 146/65 O2 Sat by Pulse 96 97 Oximetry Treatment: Doxycycline [Vibramycin] 100 mg PO BID 1 Days #10 capsule 03/26/20 [Rx] ED alone stated "Atrial fibrillation with RVR, Fever, Sepsis" DS stated "Question element of pneumonia on workup.However, she also was admitted due to A fibrillation with RVR.She is currently on Cardizem drip doing well.Empiric antibiotic treatment has been started". In your professional opinion, please clarify if these findings signify one of the following conditions, Condition Sepsis ruled out-this is the correct diagnosis Sepsis Severe Sepsis Septic Shock Other, please specify Unable to determine MTDD
== END 2020-03-26 14:07 | disposition home or self-care (01) | DRG 308 ==
LOC: EC 13:03 → 3SCARD 17:17
PROVIDERS: ADMIT Family Medicine; ATTEND Family Medicine
DX: I48.91 Unspecified atrial fibrillation (principal); J18.9 Pneumonia, unspecified organism; J44.0 Chronic obstructive pulmonary disease with (acute) lower respiratory infection; J98.11 Atelectasis; M19.90 Unspecified osteoarthritis, unspecified site; Z53.20 Procedure and treatment not carried out because of patient's decision for unspecified reasons; Z20.822 Contact with and (suspected) exposure to COVID-19; I25.10 Atherosclerotic heart disease of native coronary artery without angina pectoris; I44.7 Left bundle-branch block, unspecified; I10 Essential (primary) hypertension; I08.1 Rheumatic disorders of both mitral and tricuspid valves; I25.5 Ischemic cardiomyopathy; E78.5 Hyperlipidemia, unspecified; I27.20 Pulmonary hypertension, unspecified; E11.9 Type 2 diabetes mellitus without complications; Z79.82 Long term (current) use of aspirin; Z79.02 Long term (current) use of antithrombotics/antiplatelets; Z79.899 Other long term (current) drug therapy; Z88.0 Allergy status to penicillin; Z88.8 Allergy status to other drugs, medicaments and biological substances; Z88.1 Allergy status to other antibiotic agents; Z91.012 Allergy to eggs; Z91.040 Latex allergy status; Z95.5 Presence of coronary angioplasty implant and graft; Z98.890 Other specified postprocedural states; Z87.891 Personal history of nicotine dependence; Z86.74 Personal history of sudden cardiac arrest; Z83.3 Family history of diabetes mellitus; Z82.5 Family history of asthma and other chronic lower respiratory diseases; Z80.1 Family history of malignant neoplasm of trachea, bronchus and lung; I25.2 Old myocardial infarction
CPT/HCPCS: 36415; 71045; 80053; 80061; 81001; 82550; 82728; 83605; 83615; 83735; 83880; 84145; 84484; 85025; 85610; 85730; 86140; 87040; 87502; 87635; 93005; 93306; 96365; 96366; 96368; 99291

== ENCOUNTER 2020-03-27 09:23 | Inpatient (IN) | payer MEDICARE, OTHER ==
[2020-03-27] MEDS ORDERED: ASPIRIN 81 MG PO STA (09:36)
[2020-03-27] MEDS ORDERED: DILTIAZEM DRIP BOLUS FROM BAG 1 MG SOLN IV ONE (09:42)
[2020-03-27] MEDS ORDERED: DILTIAZEM 125 MG in SODIUM CHLORIDE 0.9% 100 ML IV SCH (09:45)
[2020-03-27] MEDS ORDERED: ACETAMINOPHEN TAB 325 MG TAB PO STA (09:51)
[2020-03-27 10:09] LABS: Albumin 3.5 g/dL (3.5-5.0); Calcium 9.1 mg/dL (8.4-10.2); Magnesium 1.8 mg/dL (1.6-2.3); Potassium 3.8 mmol/L (3.5-5.1); Total Bilirubin 2.4 mg/dL (0.2-1.3); Total Protein 6.2 g/dL (6.3-8.2)
[2020-03-27 10:11] LABS: INR 1.1 (<1.2); Prothrombin Time 11.7 sec (9.0-12.0)
[2020-03-27 10:17] LABS: Basophils % (A) 0 %; Eosinophils # (A) 0.1 k/uL (0-0.7); Eosinophils % (A) 1 %; HGB 9.9 gm/dL (11.4-16.0); Lymphocytes # (A) 1.1 k/uL (1.0-4.8); Lymphocytes % (A) 10 %; MCH 28.3 pg (25.0-35.0); MCHC 33.1 g/dL (31.0-37.0); MCV 85.5 fL (80.0-100.0); Mean Platelet Volume 11.4; Monocytes # (A) 0.9 k/uL (0-1.0); Monocytes % (A) 8 %; Neutrophils # (A) 8.8 k/uL (1.3-7.7); Neutrophils % (A) 80 %; Platelet Count 107 k/uL (150-450); RBC 3.51 m/uL (3.80-5.40); RDW 15.2 % (11.5-15.5); WBC 11.1 k/uL (3.8-10.6)
[2020-03-27] MEDS ORDERED: HEPARIN SODIUM,PORCINE 5,000 UNIT/ML 1 ML VIAL IV PRN (10:17)
[2020-03-27] MEDS ORDERED: HEPARIN SODIUM,PORCINE 5,000 UNIT/ML 1 ML VIAL IV ONE (10:17)
--- NOTE | 2020-03-27 10:17 | ED ---
General Adult HPI - General Source: patient, EMS, RN notes reviewed Mode of arrival: EMS Limitations: no limitations <Jose Valadez - Last Filed: 03/27/20 10:14> <Jarvis Villagomez - Last Filed: 03/27/20 10:51> - General Chief complaint: Shortness of Breath Stated complaint: sob/afib rvr Time Seen by Provider: 03/27/20 09:29 - History of Present Illness Initial comments: 74-year-old female presents emergency Department chief complaint shortness of breath. Patient was discharged yesterday in the hospital with evidence of pneumonia, A. fib. Patient was evaluated by cardiology upon reading of the note patient refused medication for rate control and anticoagulation. Patient's states that she was discharged and worsened overnight time. Patient states she feels her heart race, short of breath. No fevers or chills no abdominal pain at this time. (Jose Valadez) - Related Data Home Medications Medication Instructions Recorded Confirmed glipiZIDE [Glipizide ER] 20 mg PO QAM 01/08/14 03/27/20 Ferrous Sulfate [Iron (65 MG 325 mg PO DAILY 02/12/19 03/27/20 Elemental)] Cholecalciferol [Vitamin D3 (10 2,000 unit PO DAILY@1200 06/29/19 03/27/20 Mcg = 400 Iu)] Ascorbic Acid [Vitamin C] 500 mg PO DAILY 03/25/20 03/27/20 Enalapril Maleate [Vasotec] 5 mg PO BID 03/25/20 03/27/20 L.acidoph,Paracasei, B.lactis 1 tab PO DAILY 03/25/20 03/27/20 [Probiotic] Metoprolol Tartrate [Lopressor] 50 mg PO BID-W/MEALS 03/25/20 03/27/20 Vitamin B Complex 1 cap PO DAILY 03/25/20 03/27/20 Previous Rx's Medication Instructions Recorded Aspirin 81 mg PO DAILY #30 chew 07/01/19 Furosemide [Lasix] 40 mg PO BID #60 tab 07/01/19 Doxycycline [Vibramycin] 100 mg PO BID 1 Days #10 capsule 03/26/20 Allergies Allergy/AdvReac Type Severity Reaction Status Date / Time Corticosteroids Allergy Unknown Unknown Verified 03/27/20 09:47 (Glucocorticoids) azithromycin [From Zithromax] Allergy Anaphylaxis Verified 03/27/20 09:47 banana Allergy Unknown Verified 03/27/20 09:47 carisoprodol [From Soma] Allergy Unknown Verified 03/27/20 09:47 ciprofloxacin [From Cipro] Allergy Unknown Verified 03/27/20 09:47 cortisone [Cortisone] Allergy Unknown Verified 03/27/20 09:47 cyclobenzaprine HCl Allergy Unknown Verified 03/27/20 09:47 [From Flexeril] egg Allergy Unknown Verified 03/27/20 09:47 latex Allergy Unknown Verified 03/27/20 09:47 Latex, Natural Rubber Allergy Unknown Verified 03/27/20 09:47 levofloxacin [From Levaquin] Allergy Anaphylaxis Verified 03/27/20 09:47 Penicillins Allergy Anaphylaxis Verified 03/27/20 09:47 Review of Systems ROS Other: All systems not noted in ROS Statement are negative. <Jose Valadez - Last Filed: 03/27/20 10:14> ROS Other: All systems not noted in ROS Statement are negative. <Jarvis Villagomez - Last Filed: 03/27/20 10:51> ROS Statement: Those systems with pertinent positive or pertinent negative responses have been documented in the HPI. Past Medical History Past Medical History: Chest Pain / Angina, Diabetes Mellitus, Hypertension, Myocardial Infarction (CT), Osteoarthritis (OA) Additional Past Medical History / Comment(s): arthritis, 01-03-14 cardiac arrest/resp failure/mi post intubation came from 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 Last Myocardial Infarction Date:: 01-03-14 History of Any Multi-Drug Resistant Organisms: None Reported Past Surgical History: Heart Catheterization With Stent Additional Past Surgical History / Comment(s): d&c, stent rca 01-07-14 Past Anesthesia/Blood Transfusion Reactions: No Reported Reaction Date of Last Stent Placement:: 2013 Past Psychological History: No Psychological Hx Reported Smoking Status: Former smoker Past Alcohol Use History: None Reported Past Drug Use History: None Reported - Past Family History Father Family Medical History: Cancer, Diabetes Mellitus Additional Family Medical History / Comment(s): age 70 from lung cancer Mother Additional Family Medical History / Comment(s): age 83 emphysema <Jose Valadez - Last Filed: 03/27/20 10:14> General Exam General appearance: alert, in no apparent distress Head exam: Present: atraumatic, normocephalic, normal inspection Eye exam: Present: normal appearance, PERRL, EOMI. Absent: scleral icterus, conjunctival injection, periorbital swelling ENT exam: Present: normal exam, normal oropharynx, mucous membranes moist Neck exam: Present: normal inspection, full ROM. Absent: tenderness, meningismus, lymphadenopathy Respiratory exam: Present: normal lung sounds bilaterally. Absent: respiratory distress, wheezes, rales, rhonchi, stridor Cardiovascular Exam: Present: tachycardia, irregular rhythm, normal heart sounds. Absent: regular rate, normal rhythm, systolic murmur, diastolic murmur, rubs, gallop, clicks GI/Abdominal exam: Present: soft, normal bowel sounds. Absent: distended, tenderness, guarding, rebound, rigid <Jose Valadez - Last Filed: 03/27/20 10:14> Course <Jarvis Villagomez - Last Filed: 03/27/20 10:51> Vital Signs 03/27/20 09:26 Temperature 98.9 F Pulse Rate 149 H Respiratory 22 Rate Blood Pressure 134/81 O2 Sat by Pulse 97 Oximetry - Reevaluation(s) Reevaluation #1: 03/27/20 10:50 PA supervision: I did proceed evaluate his patient the patient did present with complaints of shortness of breath she was found to have atrial fibrillation with rapid ventricular response rate she diminished breath sounds with irregularly irregular heart rate. Patient will be admitted to Dr. Barrios who was contacted. I do agree with the assessment and plan (Jarvis Villagomez) EKG Findings - EKG Comments: EKG Findings:: EKG performed at 9:30 484 with RVR rate of 144 QRS 1:30 QT/QTC 334/517 <Jose Valadez - Last Filed: 03/27/20 10:14> Medical Decision Making - Lab Data Result diagrams: 03/27/20 09:44 <Jose Valadez - Last Filed: 03/27/20 10:14> - Lab Data Result diagrams: 03/27/20 09:44 03/27/20 09:44 <Jarvis Villagomez - Last Filed: 03/27/20 10:51> - Medical Decision Making Patient's case discussed with Dr. Barrios patient be admitted with cardiology consult. Patient has A. fib with RVR. (Jose Valadez) - Lab Data Lab Results 03/27/20 03/27/20 03/27/20 Range/Units 09:44 09:44 09:44 WBC 11.1 H (3.8-10.6) k/uL RBC 3.51 L (3.80-5.40) m/uL Hgb 9.9 L (11.4-16.0) gm/dL Hct 30.0 L (34.0-46.0) % MCV 85.5 (80.0-100.0) fL MCH 28.3 (25.0-35.0) pg MCHC 33.1 (31.0-37.0) g/dL RDW 15.2 (11.5-15.5) % Plt Count 107 L (150-450) k/uL MPV 11.4 Neutrophils % 80 % Lymphocytes % 10 % Monocytes % 8 % Eosinophils % 1 % Basophils % 0 % Neutrophils # 8.8 H (1.3-7.7) k/uL Lymphocytes # 1.1 (1.0-4.8) k/uL Monocytes # 0.9 (0-1.0) k/uL Eosinophils # 0.1 (0-0.7) k/uL Basophils # 0.0 (0-0.2) k/uL Manual Slide Review Performed PT 11.7 (9.0-12.0) sec INR 1.1 (<1.2) APTT 19.2 L (22.0-30.0) sec Sodium 134 L (137-145) mmol/L Potassium 3.8 (3.5-5.1) mmol/L Chloride 102 (98-107) mmol/L Carbon Dioxide 22 (22-30) mmol/L Anion Gap 10 mmol/L BUN 38 H (7-17) mg/dL Creatinine 1.15 H (0.52-1.04) mg/dL Est GFR (CKD-EPI)AfAm 54 (>60 ml/min/1.73 sqM) Est GFR (CKD-EPI)NonAf 46 (>60 ml/min/1.73 sqM) Glucose 229 H (74-99) mg/dL Calcium 9.1 (8.4-10.2) mg/dL Magnesium 1.8 (1.6-2.3) mg/dL Total Bilirubin 2.4 H (0.2-1.3) mg/dL AST 39 H (14-36) U/L ALT 34 (4-34) U/L Alkaline Phosphatase 117 (38-126) U/L Troponin I (0.000-0.034) ng/mL Total Protein 6.2 L (6.3-8.2) g/dL Albumin 3.5 (3.5-5.0) g/dL 03/27/20 Range/Units 09:44 WBC (3.8-10.6) k/uL RBC (3.80-5.40) m/uL Hgb (11.4-16.0) gm/dL Hct (34.0-46.0) % MCV (80.0-100.0) fL MCH (25.0-35.0) pg MCHC (31.0-37.0) g/dL RDW (11.5-15.5) % Plt Count (150-450) k/uL MPV Neutrophils % % Lymphocytes % % Monocytes % % Eosinophils % % Basophils % % Neutrophils # (1.3-7.7) k/uL Lymphocytes # (1.0-4.8) k/uL Monocytes # (0-1.0) k/uL Eosinophils # (0-0.7) k/uL Basophils # (0-0.2) k/uL Manual Slide Review PT (9.0-12.0) sec INR (<1.2) APTT (22.0-30.0) sec Sodium (137-145) mmol/L Potassium (3.5-5.1) mmol/L Chloride (98-107) mmol/L Carbon Dioxide (22-30) mmol/L Anion Gap mmol/L BUN (7-17) mg/dL Creatinine (0.52-1.04) mg/dL Est GFR (CKD-EPI)AfAm (>60 ml/min/1.73 sqM) Est GFR (CKD-EPI)NonAf (>60 ml/min/1.73 sqM) Glucose (74-99) mg/dL Calcium (8.4-10.2) mg/dL Magnesium (1.6-2.3) mg/dL Total Bilirubin (0.2-1.3) mg/dL AST (14-36) U/L ALT (4-34) U/L Alkaline Phosphatase (38-126) U/L Troponin I 0.023 (0.000-0.034) ng/mL Total Protein (6.3-8.2) g/dL Albumin (3.5-5.0) g/dL Critical Care Time Critical Care Time: Yes Total Critical Care Time: 35 <Jose Valadez - Last Filed: 03/27/20 10:14> Critical Care Time: Total 35 minutes of critical care time were used initially evaluated the patient and review past medical history review prior records or in of labs, EKG chest x- ray patient found in A. fib with RVR patient was given Cardizem and started on drip with a bolus. Patient case discussed with PCP consult cardiology. (Jose Valadez) Disposition <Jose Valadez - Last Filed: 03/27/20 10:14> <Jarvis Villagomez - Last Filed: 03/27/20 10:51> Clinical Impression: Atrial fibrillation with RVR Disposition: ADMITTED IP TO THIS HOSP Condition: Fair Referrals: Last Barrios MD [Primary Care Provider] - 1-2 days
[2020-03-27 10:30] LABS: Partial Thromboplastin Time 19.2 sec (22.0-30.0)
[2020-03-27] MEDS: HEPARIN SOD,PORK IN 0.45% NACL 25,000 UNIT in 0.45% NACL 1 250ML.BAG IV SCH (10:56)
--- NOTE | 2020-03-27 11:08 | XR ---
EXAMINATION TYPE: XR chest 2V DATE OF EXAM: 03/27/2020 COMPARISON: Chest x-ray from yesterday. HISTORY: Chest pain. TECHNIQUE: Frontal and lateral views of the chest are obtained. Findings: The osseous structures remain demineralized. Heart size stable and mildly enlarged with ath erosclerotic thoracic aorta. Increasing reticular interstitial changes with new small bilateral pleur al effusions. Bibasilar opacities remain present. IMPRESSION: Suspect CHF exacerbation as there is mild cardiomegaly with worsening interstitial edema and small bilateral pleural effusions. Correlate clinically. Areas of underlying acute infiltrate in the lung bases cannot be excluded.
[2020-03-27] MEDS ORDERED: NON FORMULARY DRUG (Vitamin B Complex [Vitamin B Complex] 1 EACH Capsule) PO SCH (15:15)
[2020-03-27] MEDS ORDERED: FERROUS SULFATE 325 MG TAB PO SCH (15:15)
[2020-03-27] MEDS: ASCORBIC ACID 500 MG TAB PO SCH (15:41)
[2020-03-27] MEDS: METOPROLOL TARTRATE 50 MG TAB PO SCH (15:43)
[2020-03-27] MEDS: FERROUS SULFATE 325 MG TAB PO SCH (15:43)
[2020-03-27] MEDS: FUROSEMIDE 40 MG TAB PO SCH (15:43)
[2020-03-27] MEDS: glipiZIDE 10 MG TAB PO SCH (17:05)
[2020-03-27 17:12] LABS: Glucose,Whole Blood 266 mg/dL (75-99)
[2020-03-27] MEDS: DOXYCYCLINE 100 MG CAP PO SCH (18:58)
[2020-03-27] MEDS ORDERED: DOXYCYCLINE 100 MG CAP PO SCH ×2 (19:00→21:00)
[2020-03-27] MEDS: DILTIAZEM 125 MG in SODIUM CHLORIDE 0.9% 100 ML IV SCH (20:30)
[2020-03-27 20:53] LABS: Glucose,Whole Blood 268 mg/dL (75-99)
[2020-03-27] MEDS ORDERED: FUROSEMIDE 40 MG TAB PO SCH (21:00)
[2020-03-27] MEDS: INSULIN ASPART (NovoLOG) 100 UNIT/ML VIAL SQ SCH (21:07)
[2020-03-28] MEDS: glipiZIDE 10 MG TAB PO SCH ×2 (06:16→16:58)
[2020-03-28] MEDS: METOPROLOL TARTRATE 50 MG TAB PO SCH (06:16)
[2020-03-28] MEDS: FUROSEMIDE 40 MG TAB PO SCH ×2 (06:16→16:51)
[2020-03-28] MEDS: DOXYCYCLINE 100 MG CAP PO SCH ×2 (06:16→18:44)
[2020-03-28] MEDS: INSULIN ASPART (NovoLOG) 100 UNIT/ML VIAL SQ SCH ×5 (06:18→21:35)
[2020-03-28 06:35] LABS: Glucose,Whole Blood 141 mg/dL (75-99)
[2020-03-28 06:55] LABS: Cholesterol 176 mg/dL (<200); HDL Cholesterol 48 mg/dL (40-60); LDL Cholesterol,Calculated 108 mg/dL (0-99); Triglycerides 98 mg/dL (<150)
[2020-03-28] MEDS: HEPARIN SOD,PORK IN 0.45% NACL 25,000 UNIT in 0.45% NACL 1 250ML.BAG IV SCH (06:58)
[2020-03-28] MEDS ORDERED: glipiZIDE 10 MG TAB PO SCH (07:30)
--- NOTE | 2020-03-28 08:11 | P.HPIM ---
History of Present Illness Chief Complaint: Afib This is a history of physical 74-year-old white female who was discharge a couple days ago and is now readmitted secondary to paroxysmal atrial fibrillation. She states when she got home and started becoming more active she became more short of breath. X-ray does show bilateral systolic congestive heart failure images. The patient is now converted after being placed on Cardizem drip. Cardiology is now be consulted. No significant chest pain. She does have mild dyspnea on exertion but no voiding difficulties. Review of Systems Constitutional: Denies chills, Denies fever Eyes: denies blurred vision, denies pain Ears, nose, mouth and throat: Denies headache, Denies sore throat Cardiovascular: Reports as per HPI Gastrointestinal: Denies abdominal pain, Denies diarrhea, Denies nausea, Denies vomiting Genitourinary: Denies dysuria, Denies hematuria Past Medical History Past Medical History: Atrial Fibrillation, Chest Pain / Angina, Diabetes Mellitus, Hypertension, Myocardial Infarction (MS), Osteoarthritis (OA), Pneumonia Additional Past Medical History / Comment(s): arthritis, 01-03-14 cardiac arrest/resp failure/mi post intubation came from [facility] 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 Last Myocardial Infarction Date:: 01-03-14 History of Any Multi-Drug Resistant Organisms: None Reported Past Surgical History: Heart Catheterization With Stent Additional Past Surgical History / Comment(s): d&c, stent RCA 01-07-14, stent LAD 02/14/2019 Past Anesthesia/Blood Transfusion Reactions: No Reported Reaction Date of Last Stent Placement:: 2013 Past Psychological History: No Psychological Hx Reported Smoking Status: Former smoker Past Alcohol Use History: None Reported Additional Past Alcohol Use History / Comment(s): started smoking at age 27, smoked 1/2 ppd quit 2002. Past Drug Use History: None Reported - Past Family History Father Family Medical History: Cancer, Diabetes Mellitus Additional Family Medical History / Comment(s): age 70 from lung cancer Mother Additional Family Medical History / Comment(s): age 83 emphysema Medications and Allergies Home Medications Medication Instructions Recorded Confirmed Type RX: glipiZIDE [Glipizide ER] 20 mg PO QAM 01/08/14 03/27/20 History RX: Ferrous Sulfate [Iron (65 MG 325 mg PO DAILY 02/12/19 03/27/20 History Elemental)] RX: Cholecalciferol [Vitamin D3 2,000 unit PO DAILY@1200 06/29/19 03/27/20 History (10 Mcg = 400 Iu)] RX: Aspirin 81 mg PO DAILY #30 chew 07/01/19 03/27/20 Rx RX: Furosemide [Lasix] 40 mg PO BID #60 tab 07/01/19 03/27/20 Rx Ascorbic Acid [Vitamin C] 500 mg PO DAILY 03/25/20 03/27/20 History L.acidoph,Paracasei, B.lactis 1 tab PO DAILY 03/25/20 03/27/20 History [Probiotic] RX: Enalapril Maleate [Vasotec] 5 mg PO BID 03/25/20 03/27/20 History RX: Metoprolol Tartrate [Lopressor] 50 mg PO BID-W/MEALS 03/25/20 03/27/20 History RX: Vitamin B Complex 1 cap PO DAILY 03/25/20 03/27/20 History RX: Doxycycline [Vibramycin] 100 mg PO BID 1 Days #10 capsule 03/26/20 03/27/20 Rx Allergies Allergy/AdvReac Type Severity Reaction Status Date / Time Corticosteroids Allergy Unknown Unknown Verified 03/27/20 09:47 (Glucocorticoids) azithromycin [From Zithromax] Allergy Anaphylaxis Verified 03/27/20 09:47 banana Allergy Unknown Verified 03/27/20 09:47 carisoprodol [From Soma] Allergy Unknown Verified 03/27/20 09:47 ciprofloxacin [From Cipro] Allergy Unknown Verified 03/27/20 09:47 cortisone [Cortisone] Allergy Unknown Verified 03/27/20 09:47 cyclobenzaprine HCl Allergy Unknown Verified 03/27/20 09:47 [From Flexeril] egg Allergy Unknown Verified 03/27/20 09:47 latex Allergy Unknown Verified 03/27/20 09:47 Latex, Natural Rubber Allergy Unknown Verified 03/27/20 09:47 levofloxacin [From Levaquin] Allergy Anaphylaxis Verified 03/27/20 09:47 Penicillins Allergy Anaphylaxis Verified 03/27/20 09:47 Physical Exam Vitals: Vital Signs Temp Pulse Pulse Resp BP BP Pulse Ox 03/28/20 04:00 97.7 F 77 16 103/68 97 03/28/20 01:50 95 18 03/28/20 00:00 98.1 F 95 18 93/58 98 03/27/20 20:00 98.1 F 140 H 19 93/52 99 03/27/20 16:45 97.1 F L 138 H 18 113/57 97 03/27/20 14:30 97.9 F 143 H 18 126/59 97 03/27/20 14:00 138 H 18 03/27/20 12:36 98.9 F 03/27/20 12:28 136 H 20 92/80 99 03/27/20 11:19 141 H 18 112/79 98 03/27/20 09:26 98.9 F 149 H 22 134/81 97 Intake and Output 03/27/20 03/28/20 03/28/20 22:59 06:59 14:59 Intake Total 77.241 218.887 Balance 77.241 218.887 Intake: Intake, IV Titration 77.241 218.887 Amount Diltiazem 125 mg In 80 Sodium Chloride 0.9% 100 ml @ 10 MG/HR 10 mls/hr IV .[id number] GARRY Rx#: [id number] Heparin Sod,Pork in 0.45% 77.241 138.887 NaCl 25,000 unit In 0.45 % NaCl 1 250ml.bag @ 12 UNITS/KG/HR 9.798 mls/hr IV .Q24H GARRY Rx#: [id number] Other: # Voids 1 # Bowel Movements 0 Weight 85 kg - Constitutional General appearance: no acute distress - EENT Eyes: EOMI - Neck Neck: no lymphadenopathy - Respiratory Respiratory: bilateral: diminished - Cardiovascular Rhythm: regular Heart sounds: normal: S1, S2 Abnormal Heart Sounds: no S3 Gallop - Gastrointestinal General gastrointestinal: soft, no tenderness - Integumentary Integumentary: no cellulitis - Psychiatric Psychiatric: A&O x's 3 Results CBC & Chem 7: 03/27/20 09:44 03/27/20 09:44 Labs: Abnormal Lab Results - Last 24 Hours (Table) 03/27/20 03/27/20 03/27/20 Range/Units 09:44 09:44 09:44 WBC 11.1 H (3.8-10.6) k/uL RBC 3.51 L (3.80-5.40) m/uL Hgb 9.9 L (11.4-16.0) gm/dL Hct 30.0 L (34.0-46.0) % Plt Count 107 L (150-450) k/uL Neutrophils # 8.8 H (1.3-7.7) k/uL APTT 19.2 L (22.0-30.0) sec Sodium 134 L (137-145) mmol/L BUN 38 H (7-17) mg/dL Creatinine 1.15 H (0.52-1.04) mg/dL Glucose 229 H (74-99) mg/dL POC Glucose (mg/dL) (75-99) mg/dL Total Bilirubin 2.4 H (0.2-1.3) mg/dL AST 39 H (14-36) U/L Troponin I (0.000-0.034) ng/mL Total Protein 6.2 L (6.3-8.2) g/dL LDL Cholesterol, Calc (0-99) mg/dL 03/27/20 03/27/20 03/27/20 Range/Units 11:58 15:58 15:58 WBC (3.8-10.6) k/uL RBC (3.80-5.40) m/uL Hgb (11.4-16.0) gm/dL Hct (34.0-46.0) % Plt Count (150-450) k/uL Neutrophils # (1.3-7.7) k/uL APTT 38.9 H (22.0-30.0) sec Sodium (137-145) mmol/L BUN (7-17) mg/dL Creatinine (0.52-1.04) mg/dL Glucose (74-99) mg/dL POC Glucose (mg/dL) (75-99) mg/dL Total Bilirubin (0.2-1.3) mg/dL AST (14-36) U/L Troponin I 0.052 H* 0.216 H* (0.000-0.034) ng/mL Total Protein (6.3-8.2) g/dL LDL Cholesterol, Calc (0-99) mg/dL 03/27/20 03/27/20 03/28/20 Range/Units 16:55 20:20 00:42 WBC (3.8-10.6) k/uL RBC (3.80-5.40) m/uL Hgb (11.4-16.0) gm/dL Hct (34.0-46.0) % Plt Count (150-450) k/uL Neutrophils # (1.3-7.7) k/uL APTT 57.9 H (22.0-30.0) sec Sodium (137-145) mmol/L BUN (7-17) mg/dL Creatinine (0.52-1.04) mg/dL Glucose (74-99) mg/dL POC Glucose (mg/dL) 266 H 268 H (75-99) mg/dL Total Bilirubin (0.2-1.3) mg/dL AST (14-36) U/L Troponin I (0.000-0.034) ng/mL Total Protein (6.3-8.2) g/dL LDL Cholesterol, Calc (0-99) mg/dL 03/28/20 03/28/20 03/28/20 Range/Units 06:11 06:11 06:27 WBC (3.8-10.6) k/uL RBC (3.80-5.40) m/uL Hgb (11.4-16.0) gm/dL Hct (34.0-46.0) % Plt Count (150-450) k/uL Neutrophils # (1.3-7.7) k/uL APTT 54.2 H (22.0-30.0) sec Sodium (137-145) mmol/L BUN (7-17) mg/dL Creatinine (0.52-1.04) mg/dL Glucose (74-99) mg/dL POC Glucose (mg/dL) 141 H (75-99) mg/dL Total Bilirubin (0.2-1.3) mg/dL AST (14-36) U/L Troponin I (0.000-0.034) ng/mL Total Protein (6.3-8.2) g/dL LDL Cholesterol, Calc 108 H (0-99) mg/dL Thrombosis Risk Factor Assmnt - Choose All That Apply Each Factor Represents 1 point: Obesity (BMI >25) Each Risk Factor Represents 3 Points: Age 75 years or older Thrombosis Risk Factor Assessment Total Risk Factor Score: 4 Thrombosis Risk Factor Assessment Level: Moderate Risk Assessment and Plan (1) Atrial fibrillation with RVR Current Visit: Yes Status: Acute Code(s): I48.91 - UNSPECIFIED ATRIAL FIBRILLATION SNOMED Code(s): 837535803322623 (2) Congestive heart failure Current Visit: No Status: Acute Code(s): I50.9 - HEART FAILURE, UNSPECIFIED SNOMED Code(s): 38024144 Plan: Wean off Cardizem drip. Continue anticoagulation. Reconcile medications per Check CBC and CMP in a.m. Time with Patient: Greater than 30
[2020-03-28] MEDS ORDERED: ASPIRIN 81 MG PO SCH (09:00)
[2020-03-28] MEDS: ASCORBIC ACID 500 MG TAB PO SCH (09:50)
[2020-03-28] MEDS: FERROUS SULFATE 325 MG TAB PO SCH (09:50)
[2020-03-28] MEDS: CHOLECALCIFEROL 1,000 UNIT TAB PO SCH (09:50)
[2020-03-28] MEDS: LACTOBACILLUS ACIDOPH & BULGAR 1 EACH PACKET PO SCH (09:50)
[2020-03-28] MEDS: lisinopriL 20 MG TAB PO SCH (09:50)
[2020-03-28] MEDS: DILTIAZEM 125 MG in SODIUM CHLORIDE 0.9% 100 ML IV SCH (10:41)
[2020-03-28 11:51] LABS: Glucose,Whole Blood 272 mg/dL (75-99)
[2020-03-28] MEDS: APIXABAN 5 MG TAB PO SCH ×2 (12:13→21:35)
[2020-03-28] MEDS ORDERED: FUROSEMIDE 10 MG/ML 4 ML VIAL IV STA ×2 (12:14→16:50)
--- NOTE | 2020-03-28 12:15 | CDI ---
Documentation Clarification Form Date: 03/28/2020 11:51:34 AM From: Lakshmi Hernandez RN CCDS Admit Date: 03/27/2020 10:11:00 AM Patient Name: Vicky Nixon V Visit Number: [id number] Discharge Date: ATTENTION: The Clinical Documentation Specialists (CDI) and [facility] Coding Staff appreciate your assistance in clarifying documentation. Please respond to the clarification below the line at the bottom and electronically sign. The CDI & [facility] Coding staff will review the response and follow-up if needed. Please note: Queries are made part of the Legal Health Record. If you have any questions, please contact the author of this message via ITS. Dr. Last Barrios CHF is documented in the H&P 03/28. History/Risk Factors: 74-year-old female presents to the ED after being discharged on 09/23 with diagnoses of pneumonia and atrial fibrillation. Medical History: Atrial Fib; DC and HTN Clinical Indicators: VS/Pulse OX 03/27: B/P 134/81; HR 149; Temp 98.9 F Oral; RR 22; SpO2 97% room air BNP 03/27: 4710 Echocardiogram Results 03/26: Mild concentric left ventricular hypertrophy. Moderate global hypokinesis of LV. Ventricular systolic function is moderately impaired with, an EF 35-40%. Chest X Ray: Suspect CHF exacerbation as there is mild cardiomegaly with worsening interstitial edema and small bilateral pleural effusions. Areas of underlying acute infiltrate in the lung bases. Treatment: 03/27 Lopressor PO BID GARRY; 03/27 Lasix PO BID In your professional opinion, can you please clarify the acuity and type of CHF if known? Chronic Systolic Heart Failure-this is the correct dx Unable to Determine Other, please specify (Last Revision: June 2017) MTDD
--- NOTE | 2020-03-28 12:26 | CDI ---
Documentation Clarification Form Date: 03/28/2020 12:16:09 PM From: Lakshmi Hernandez RN CCDS Admit Date: 03/27/2020 10:11:00 AM Patient Name: Vicky Nixon V Visit Number: [id number] Discharge Date: ATTENTION: The Clinical Documentation Specialists (CDI) and [facility] Coding Staff appreciate your assistance in clarifying documentation. Please respond to the clarification below the line at the bottom and electronically sign. The CDI & [facility] Coding staff will review the response and follow-up if needed. Please note: Queries are made part of the Legal Health Record. If you have any questions, please contact the author of this message via ITS. Dr. Last Barrios The patient is on home medication of Doxycycline. The patient is also being treated with the same medication while inpatient. History/Risk Factors: 74-year-old female presents to the ED after being discharged on 09/23 with diagnoses of pneumonia and atrial fibrillation. Medical History: Pneumonia; Atrial Fib; CT and HTN Clinical Indicators: VS/Pulse OX 03/27: B/P 134/81; HR 149; Temp 98.9 F Oral; RR 22; SpO2 97% room air Labs 03/27: WBC 11.1; Neutrophils 8.8 Chest X Ray: Suspect CHF exacerbation as there is mild cardiomegaly with worsening interstitial edema and small bilateral pleural effusions. Areas of underlying acute infiltrate in the lung bases. Respiratory assessment HP 03/28: Bilateral diminished Treatment: Antibiotics: 03/27 Doxycycline PO BID In your professional opinion, can you please clarify the diagnosis of the treatment? Pneumonia please specify type __community acquired pneumonia Other, please specify Unable to determine (Last Revision: June 2017) MTDD
--- NOTE | 2020-03-28 14:39 | P.CRDCN ---
History of Present Illness Consult date: 03/28/20 History of present illness: CHIEF COMPLAINT: A. darnell with RVR HISTORY OF PRESENT ILLNESS: This is a 74-year-old female with a past medical history significant for hypertension, hyperlipidemia, former nicotine dependence, coronary artery disease with previous stenting to the RCA and mid LAD, and ischemic cardiomyopathy. Patient follows in the office with Dr. Chavez. We have been asked to see the patient in consultation for A. darnell with RVR. Patient was hospitalized on 03/26/2020 for new onset atrial fibrillation. She refused to have her beta chely increased at that time. Patient also refused anticoagulation at that time. Patient is now agreeable to anticoagulation. The patient was started on a Cardizem drip and a heparin drip in the emergency room. The patient has converted to sinus rhythm and is currently maintaining a heart rate in the 60s. DIAGNOSTICS: EKG reveals A. darnell with RVR Chest xray increasing reticular interstitial changes with new small bilateral pleural effusions. Laboratory data: WBC 11.1. Hemoglobin 9.9. Platelet count 107. Sodium 134. Potassium 3.8. BUN 38. Creatinine 1.15. Troponin 0.023. 0.052. 0.216. Current home cardiac medications include aspirin 81 mg daily, enalapril 5 mg twice a day, Lasix 40mg twice a day and metoprolol 50 mg twice a day Echocardiogram revealed ejection fraction 35-40%, moderate to severe mitral regurgitation, moderate to severe tricuspid regurgitation and severe pulmonary hypertension REVIEW OF SYSTEMS: At the time of my exam: CONSTITUTIONAL: Denies fever or chills. HEENT: Denies blurred vision, vision changes, or eye pain. Denies hemoptysis CARDIOVASCULAR: Denies chest pain, orthopnea, PND or palpitations RESPIRATORY: No shortness of breath. GASTROINTESTINAL: Denies abdominal pain. Denies nausea or vomiting. HEMATOLOGIC: Denies bleeding disorders. GENITOURINARY: Denies any blood in urine. SKIN: Denies pruitis. Denies rash. PHYSICAL EXAM: VITAL SIGNS: Reviewed. GENERAL: Well-developed in no acute distress. HEENT: Head is normocephalic. Pupils are equal, round. Sclerae anicteric. Mucous membranes of the mouth are moist. Neck supple. No JVD or thyromegaly LUNGS: Respirations even and unlabored. Lungs essentially clear to auscultation bilaterally. HEART: Regular rate and rhythm. S1 and S2 heard. Systolic murmur. ABDOMEN: Soft. Nondistended. Nontender. EXTREMITIES: Normal range of motion. No clubbing or cyanosis. Peripheral pulses intact. No lower extremity edema NEUROLOGIC: Awake and alert. Oriented x 3. ASSESSMENT: Paroxysmal atrial fibrillation with RVR Coronary artery disease with previous stent to the RCA, date unknown, and stent to LAD, February 2019 Ischemic cardiomyopathy, ejection fraction 35-40% Hypertension Hyperlipidemia Former nicotine dependence PLAN: No need to repeat echocardiogram at this time Discontinue IV heparin. Patient now agreeable to anticoagulation. Will begin Eliquis 5 mg twice a day Discontinue IV Cardizem Increase metoprolol to 75 mg twice a day Anticipate discharge home tomorrow Nurse practitioner note has been reviewed by physician. Signing provider agrees with the documented findings, assessment, and plan of care. 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 Last Myocardial Infarction Date:: 01-03-14 History of Any Multi-Drug Resistant Organisms: None Reported Past Surgical History: Heart Catheterization With Stent Additional Past Surgical History / Comment(s): d&c, stent RCA 01-07-14, stent LAD 02/14/2019 Past Anesthesia/Blood Transfusion Reactions: No Reported Reaction Date of Last Stent Placement:: 2013 Past Psychological History: No Psychological Hx Reported Smoking Status: Former smoker Past Alcohol Use History: None Reported Additional Past Alcohol Use History / Comment(s): started smoking at age 27, smoked 1/2 ppd quit 2002. Past Drug Use History: None Reported - Past Family History Father Family Medical History: Cancer, Diabetes Mellitus Additional Family Medical History / Comment(s): age 70 from lung cancer Mother Additional Family Medical History / Comment(s): age 83 emphysema Medications and Allergies Home Medications Medication Instructions Recorded Confirmed Type glipiZIDE [Glipizide ER] 20 mg PO QAM 01/08/14 03/27/20 History Ferrous Sulfate [Iron (65 MG 325 mg PO DAILY 02/12/19 03/27/20 History Elemental)] Cholecalciferol [Vitamin D3 (10 2,000 unit PO DAILY@1200 06/29/19 03/27/20 Histo ry Mcg = 400 Iu)] Aspirin 81 mg PO DAILY #30 chew 07/01/19 03/27/20 Rx Furosemide [Lasix] 40 mg PO BID #60 tab 07/01/19 03/27/20 Rx Ascorbic Acid [Vitamin C] 500 mg PO DAILY 03/25/20 03/27/20 History Enalapril Maleate [Vasotec] 5 mg PO BID 03/25/20 03/27/20 History L.acidoph,Paracasei, B.lactis 1 tab PO DAILY 03/25/20 03/27/20 History [Probiotic] Metoprolol Tartrate [Lopressor] 50 mg PO BID-W/MEALS 03/25/20 03/27/20 History Vitamin B Complex 1 cap PO DAILY 03/25/20 03/27/20 History Doxycycline [Vibramycin] 100 mg PO BID 1 Days #10 capsule 03/26/20 03/27/20 Rx Apixaban [Eliquis] 5 mg PO BID #60 tab 03/28/20 Rx Allergies Allergy/AdvReac Type Severity Reaction Status Date / Time Corticosteroids Allergy Unknown Unknown Verified 03/27/20 09:47 (Glucocorticoids) azithromycin [From Zithromax] Allergy Anaphylaxis Verified 03/27/20 09:47 banana Allergy Unknown Verified 03/27/20 09:47 carisoprodol [From Soma] Allergy Unknown Verified 03/27/20 09:47 ciprofloxacin [From Cipro] Allergy Unknown Verified 03/27/20 09:47 cortisone [Cortisone] Allergy Unknown Verified 03/27/20 09:47 cyclobenzaprine HCl Allergy Unknown Verified 03/27/20 09:47 [From Flexeril] egg Allergy Unknown Verified 03/27/20 09:47 latex Allergy Unknown Verified 03/27/20 09:47 Latex, Natural Rubber Allergy Unknown Verified 03/27/20 09:47 levofloxacin [From Levaquin] Allergy Anaphylaxis Verified 03/27/20 09:47 Penicillins Allergy Anaphylaxis Verified 03/27/20 09:47 Physical Exam Vitals: Vital Signs Temp Pulse Resp BP Pulse Ox 03/28/20 08:00 97.6 F 60 18 128/60 97 03/28/20 04:00 97.7 F 77 16 103/68 97 03/28/20 01:50 95 18 03/28/20 00:00 98.1 F 95 18 93/58 98 03/27/20 20:00 98.1 F 140 H 19 93/52 99 03/27/20 16:45 97.1 F L 138 H 18 113/57 97 03/27/20 14:30 97.9 F 143 H 18 126/59 97 Intake and Output 03/27/20 03/28/20 03/28/20 22:59 06:59 14:59 Intake Total 77.241 218.887 Balance 77.241 218.887 Intake: Intake, IV Titration 77.241 218.887 Amount Diltiazem 125 mg In 80 Sodium Chloride 0.9% 100 ml @ 10 MG/HR 10 mls/hr IV .[id number] [facility] Rx#: [id number] Heparin Sod,Pork in 0.45% 77.241 138.887 NaCl 25,000 unit In 0.45 % NaCl 1 250ml.bag @ 12 UNITS/KG/HR 9.798 mls/hr IV .Q24H [facility] Rx#: [id number] Other: # Voids 1 # Bowel Movements 0 Weight 85 kg Results 03/27/20 09:44 03/27/20 09:44 Cardiac Enzymes 03/27/20 Range/Units 15:58 Troponin I 0.216 H* (0.000-0.034) ng/mL Coagulation 03/27/20 03/28/20 03/28/20 Range/Units 15:58 00:42 06:11 APTT 38.9 H 57.9 H 54.2 H (22.0-30.0) sec Lipids 03/28/20 Range/Units 06:11 Triglycerides 98 (<150) mg/dL Cholesterol 176 (<200) mg/dL HDL Cholesterol 48 (40-60) mg/dL Current Medications Generic Name Dose Route Start Last Admin Trade Name Freq PRN Reason Stop Dose Admin Apixaban 5 mg 03/28/20 11:00 03/28/20 12:13 Apixaban 5 Mg Tab PO 5 mg BID [facility] Administration Ascorbic Acid 500 mg 03/27/20 15:15 03/28/20 09:50 Ascorbic Acid 500 Mg Tab PO 500 mg DAILY [facility] Administration Cholecalciferol 2,000 unit 03/28/20 12:00 03/28/20 09:50 Cholecalciferol 1,000 Unit Tab PO 2,000 unit DAILY@1200 [facility] Administration Doxycycline Monohydrate 100 mg 03/27/20 19:00 03/28/20 06:16 Doxycycline 100 Mg Cap PO 100 mg BID@0700,1900 [facility] Administration Ferrous Sulfate 325 mg 03/27/20 16:00 03/28/20 09:50 Ferrous Sulfate 325 Mg Tab PO 325 mg DAILY@1200 [facility] Administration Furosemide 40 mg 03/27/20 15:45 03/28/20 06:16 Furosemide 40 Mg Tab PO 40 mg BID@0700,1500 [facility] Administration Glipizide 10 mg 03/27/20 17:30 03/28/20 06:16 Glipizide 10 Mg Tab PO 10 mg AC-BID [facility] Administration Insulin Aspart 0 unit 03/27/20 21:01 03/28/20 12:30 Insulin Aspart (Novolog) 100 Unit/Ml Vial SQ 4 unit ACHS [facility] Administration Protocol Lactobacillus Acidoph/Bulgaricus 1 each 03/28/20 09:00 03/28/20 09:50 Lactobacillus Acidoph & Bulgar 1 Each Packet PO 1 each DAILY [facility] Administration Lisinopril 20 mg 03/28/20 09:00 03/28/20 09:50 Lisinopril 20 Mg Tab PO 20 mg DAILY [facility] Administration Metoprolol Tartrate 75 mg 03/28/20 17:30 Metoprolol Tartrate 25 Mg Tab PO BID-W/MEALS [facility] Intake and Output 03/27/20 03/28/20 03/28/20 22:59 06:59 14:59 Intake Total 77.241 218.887 Balance 77.241 218.887 Intake: Intake, IV Titration 77.241 218.887 Amount Diltiazem 125 mg In 80 Sodium Chloride 0.9% 100 ml @ 10 MG/HR 10 mls/hr IV .[id number] [facility] Rx#: [id number] Heparin Sod,Pork in 0.45% 77.241 138.887 NaCl 25,000 unit In 0.45 % NaCl 1 250ml.bag @ 12 UNITS/KG/HR 9.798 mls/hr IV .Q24H [facility] Rx#: [id number] Other: # Voids 1 # Bowel Movements 0 Weight 85 kg 03/27/20 09:44 03/27/20 09:44
[2020-03-28 16:18] LABS: Hemoglobin A1C 8.2 % (4.0-6.0)
[2020-03-28 16:54] LABS: Glucose,Whole Blood 82 mg/dL (75-99)
[2020-03-28] MEDS: METOPROLOL TARTRATE 25 MG TAB PO SCH (16:58)
[2020-03-28 20:58] LABS: Glucose,Whole Blood 215 mg/dL (75-99)
[2020-03-29 06:19] LABS: Glucose,Whole Blood 185 mg/dL (75-99)
[2020-03-29] MEDS: METOPROLOL TARTRATE 25 MG TAB PO SCH ×2 (06:43→16:22)
[2020-03-29] MEDS: FUROSEMIDE 40 MG TAB PO SCH ×2 (06:43→16:22)
[2020-03-29] MEDS: glipiZIDE 10 MG TAB PO SCH ×2 (06:43→16:22)
[2020-03-29] MEDS: DOXYCYCLINE 100 MG CAP PO SCH (06:43)
[2020-03-29] MEDS: INSULIN ASPART (NovoLOG) 100 UNIT/ML VIAL SQ SCH ×4 (07:42→21:33)
[2020-03-29 07:57] LABS: HCT 31.5 % (34.0-46.0); HGB 10.3 gm/dL (11.4-16.0); MCH 28.5 pg (25.0-35.0); MCHC 32.8 g/dL (31.0-37.0); Mean Platelet Volume 10.6; RBC 3.62 m/uL (3.80-5.40); RDW 15.2 % (11.5-15.5); WBC 9.9 k/uL (3.8-10.6)
[2020-03-29 08:01] LABS: Albumin 3.6 g/dL (3.5-5.0); Calcium 9.2 mg/dL (8.4-10.2); Potassium 3.9 mmol/L (3.5-5.1); Total Bilirubin 1.3 mg/dL (0.2-1.3); Total Protein 6.3 g/dL (6.3-8.2)
[2020-03-29] MEDS: lisinopriL 20 MG TAB PO SCH (08:02)
[2020-03-29] MEDS: ASCORBIC ACID 500 MG TAB PO SCH (08:02)
[2020-03-29] MEDS: LACTOBACILLUS ACIDOPH & BULGAR 1 EACH PACKET PO SCH (08:02)
[2020-03-29] MEDS: CHOLECALCIFEROL 1,000 UNIT TAB PO SCH (08:02)
[2020-03-29] MEDS: FERROUS SULFATE 325 MG TAB PO SCH (08:02)
[2020-03-29] MEDS: APIXABAN 5 MG TAB PO SCH ×2 (08:02→21:33)
[2020-03-29 08:05] LABS: Platelet Count 168 k/uL (150-450)
--- NOTE | 2020-03-29 09:01 | XR ---
EXAMINATION TYPE: XR chest 1V portable DATE OF EXAM: 03/29/2020 COMPARISON: Chest x-ray 03/27/2020 HISTORY: Shortness of breath TECHNIQUE: Single frontal view of the chest is obtained. FINDINGS: Technique is apical lordotic and rotated. Heart size is stable. There is prominence of int erstitium. No evident pneumothorax or pleural effusion. Perihilar patchy increased attenuation is pre sent. Aorta is dense. Sclerotic density present involving the proximal right humerus similar to prior exam. IMPRESSION: Correlate for interstitial edema, pneumonia, congestive heart failure
[2020-03-29] MEDS ORDERED: ALPRAZolam 0.25 MG TAB PO STA (09:04)
[2020-03-29] MEDS ORDERED: FUROSEMIDE 10 MG/ML 4 ML VIAL IV STA (09:23)
[2020-03-29] MEDS ORDERED: DEXTROSE 5% IN WATER 100 ML with AMIODARONE 150 MG IV ONE (11:20)
[2020-03-29] MEDS ORDERED: AMIODARONE 360 MG in DEXTROSE 5% IN WATER 200 ML IV ONE ×2 (11:30)
[2020-03-29 11:43] LABS: Glucose,Whole Blood 394 mg/dL (75-99)
--- NOTE | 2020-03-29 13:47 | P.PN ---
Subjective Plan: Hospitalist covering Dr. Barrios over the weekend This is a pleasant 74 years old female with multiple medical problems as below who was admitted on 03/27 for dyspnea. She was recently discharged one day earlier 03/25 for pneumonia and possible interstitial pneumonia versus interstitial edema. Chest x-ray from 03/26 was suspicious for fairly pneumonia versus atelectasis in the right lung base. Recent Echo reported EF 35-40%, moderate to severe mitral regurgitation, moderate to severe tricuspid regurgitation, severe pulmonary hypertension. EKG on admission showing atrial fibrillation with RVR, QTC is 517. ProBNP is elevated more than 4000. Chest x-ray from today showing interstitial edema versus pneumonia versus congestive heart failure The patient was discharge 2 days ago she came yesterday with worsening dyspnea as well. She is already taking doxycycline at home. This morning respiratory status got worse and she wants to be placed on BiPAP however currently she feels better. She complains from minimal cough and no significant chest pain Patient currently is placed on Lasix 40 mg by mouth twice daily but she's been given IV Lasix 40 mg daily on the top of that. Also she is on Eliquis. Cardiology placed patient on amiodarone drip for possible rhythm as well as direct control. CONSTITUTIONAL: No fever, no malaise, no fatigue. HEENT: No recent visual problems or hearing problems. Denied any sore throat. CARDIOVASCULAR: No orthopnea, PND, no palpitations, no syncope. PULMONARY: No chest wall tenderness, no hemoptysis. GASTROINTESTINAL: No diarrhea, no nausea, no vomiting, no abdominal pain. Normoactive bowel sounds. NEUROLOGICAL: No headaches, no weakness, no numbness. HEMATOLOGICAL: Denies any bleeding or petechiae. GENITOURINARY: Denies any burning micturition, frequency, or urgency. Active Medications Generic Name Dose Route Start Last Admin Trade Name Freq PRN Reason Stop Dose Admin Apixaban 5 mg 03/28/20 11:00 03/29/20 08:02 Apixaban 5 Mg Tab PO 5 mg BID [facility] Administration Ascorbic Acid 500 mg 03/27/20 15:15 03/29/20 08:02 Ascorbic Acid 500 Mg Tab PO 500 mg DAILY [facility] Administration Cholecalciferol 2,000 unit 03/28/20 12:00 03/29/20 08:02 Cholecalciferol 1,000 Unit Tab PO 2,000 unit DAILY@1200 [facility] Administration Doxycycline Monohydrate 100 mg 03/27/20 19:00 03/29/20 06:43 Doxycycline 100 Mg Cap PO 100 mg BID@0700,1900 [facility] Administration Famotidine 20 mg 03/29/20 21:00 Famotidine 20 Mg/2 Ml Vial IV Q12HR [facility] Ferrous Sulfate 325 mg 03/27/20 16:00 03/29/20 08:02 Ferrous Sulfate 325 Mg Tab PO 325 mg DAILY@1200 [facility] Administration Furosemide 40 mg 03/27/20 15:45 03/29/20 06:43 Furosemide 40 Mg Tab PO 40 mg BID@0700,1500 [facility] Administration Glipizide 10 mg 03/27/20 17:30 03/29/20 06:43 Glipizide 10 Mg Tab PO 10 mg AC-BID [facility] Administration Amiodarone HCl 360 mg/ 200 mls @ 33.333 mls/hr 03/29/20 11:30 03/29/20 12:18 Dextrose/Water IV 03/29/20 17:29 1 mg/min .Q6H ONE 33.333 mls/hr Administration Protocol 1 MG/MIN Amiodarone HCl 450 mg/ 250 mls @ 16.667 mls/hr 03/29/20 17:30 Dextrose/Water IV 03/30/20 11:29 .Q15H [facility] Protocol 0.5 MG/MIN Doxycycline Hyclate 100 mg/ 100 mls @ 100 mls/hr 03/29/20 13:45 Sodium Chloride IVPB Q12HR [facility] Insulin Aspart 0 unit 03/27/20 21:01 03/29/20 12:16 Insulin Aspart (Novolog) 100 Unit/Ml Vial SQ 7 unit ACHS [facility] Administration Protocol Lactobacillus Acidoph/Bulgaricus 1 each 03/28/20 09:00 03/29/20 08:02 Lactobacillus Acidoph & Bulgar 1 Each Packet PO 1 each DAILY [facility] Administration Lisinopril 20 mg 03/28/20 09:00 03/29/20 08:02 Lisinopril 20 Mg Tab PO 20 mg DAILY [facility] Administration Metoprolol Tartrate 75 mg 03/28/20 17:30 03/29/20 06:43 Metoprolol Tartrate 25 Mg Tab PO 75 mg BID-W/MEALS [facility] Administration Objective - Vital Signs Vital signs: Vital Signs Temp 97.9 F 03/29/20 12:00 Pulse 133 H 03/29/20 12:00 Resp 26 H 03/29/20 12:00 BP 137/62 03/29/20 12:00 Pulse Ox 99 03/29/20 07:56 Intake & Output 03/28/20 03/29/20 03/29/20 18:59 06:59 18:59 Intake Total 300 0 Output Total 350 550 300 Balance -50 -550 -300 Weight 85.7 kg Intake: Oral 300 0 Output: Urine 350 550 300 Other: Voiding Method Toilet # Voids 1 # Bowel Movements 0 - Exam GENERAL: The patient is alert and oriented x3, not in any acute distress. Well developed, well nourished. HEENT: Pupils are round and equally reacting to light. EOMI. No scleral icterus. No conjunctival pallor. Normocephalic, atraumatic. No pharyngeal erythema. No thyromegaly. CARDIOVASCULAR: S1 and S2 present. No murmurs, rubs, or gallops. -PULMONARY: Chest is clear to auscultation, no wheezing or crackles. Decreased air entry bilaterally ABDOMEN: Soft, nontender, nondistended, normoactive bowel sounds. No palpable organomegaly. MUSCULOSKELETAL: No joint swelling or deformity. EXTREMITIES: No cyanosis, clubbing, or pedal edema. NEUROLOGICAL: Gross neurological examination did not reveal any focal deficits. SKIN: No rashes. no petechiae. - Labs CBC & Chem 7: 03/29/20 07:26 03/29/20 07:26 Labs: Abnormal Lab Results - Last 24 Hours (Table) 03/28/20 03/28/20 03/29/20 Range/Units 06:11 20:31 06:16 RBC (3.80-5.40) m/uL Hgb (11.4-16.0) gm/dL Hct (34.0-46.0) % Sodium (137-145) mmol/L BUN (7-17) mg/dL Creatinine (0.52-1.04) mg/dL Glucose (74-99) mg/dL POC Glucose (mg/dL) 215 H 185 H (75-99) mg/dL Hemoglobin A1c 8.2 H (4.0-6.0) % 03/29/20 03/29/20 03/29/20 Range/Units 07:26 07:26 11:41 RBC 3.62 L (3.80-5.40) m/uL Hgb 10.3 L (11.4-16.0) gm/dL Hct 31.5 L (34.0-46.0) % Sodium 136 L (137-145) mmol/L BUN 45 H (7-17) mg/dL Creatinine 1.08 H (0.52-1.04) mg/dL Glucose 204 H (74-99) mg/dL POC Glucose (mg/dL) 394 H (75-99) mg/dL Hemoglobin A1c (4.0-6.0) % Assessment and Plan Assessment: Acute hypo worsening dyspnea could be related to acute on chronic systolic CHF exacerbation , rule out bilateral pneumonia Acute hypoxic respiratory failure A. fib with RVR hypertension Osteoarthritis History of coronary artery disease status post stent Plan: This is a pleasant 74 years old female presents with possible pneumonia versus CHF. Continue with Lasix.cardiology consult. Continue with Eliquis. Continue with amiodarone drip per weed sprayer. We will continuen doxycycline, we will check a pro-calcitonin, check also for influenza and coronavirus. Check urine for logienella, pulmonary consult Labs and medication were reviewed.. Continue same treatment. Continue with symptomatic treatment. Resume home medication. Monitor lytes and vitals. DVT and GI prophylaxis. Further recommendationsas per clinical course of the patient DVT prophylaxis: Liquids GI Prophylaxis: Pepcid PT/OT: Pending Prognosis is guarded
--- NOTE | 2020-03-29 14:16 | P.PN ---
Subjective This is a 74-year-old female past medical history significant for hypertension, dyslipidemia, coronary artery disease status post PCI to the RCA and LAD, ischemic cardiomyopathy and former nicotine dependence. She follows my office with Dr. Chavez. She has gone back into atrial fibrillation with rapid ventricular rate this morning. She feels short of breath and palpitations. Repeat chest x-ray revealed interstitial edema. Blood pressure 137/62 heart rate 133 afebrile maintaining oxygen saturation on BiPAP. Laboratory data reviewed, WBC 9.9, hemoglobin 10.3, platelets 168, sodium 136, potassium 3.9, creatinine 1.08. GENERAL: Well-appearing, well-nourished and in no acute distress. NECK: Supple without JVD or thyromegaly. LUNGS: Bibasilar rales, no wheezes or rhonchi. Respiration equal and unlabored. HEART: Irregular rate and rhythm with systolic ejection murmur at the base, no rubs or gallops. S1 and S2 heard. EXTREMITIES: Normal range of motion, no edema. No clubbing or cyanosis. Peripheral pulses intact. ASSESSMENT Paroxysmal atrial fibrillation with rapid ventricular rate Coronary artery disease status post PCI Ischemic cardiomyopathy, ejection fraction 35-40% Acute on chronic systolic heart failure Hypertension Dyslipidemia Former nicotine dependence PLAN Give one dose of IV Lasix. Initiate IV amiodarone infusion for rhythm control. We will transition to oral tomorrow. Continue Eliquis for thromboembolic protection. Further recommendations to follow based upon clinical course. Nurse Practitioner note has been reviewed, I agree with a documented findings and plan of care. Patient was seen and examined. Objective - Vital Signs Vital signs: Vital Signs Temp 97.9 F 03/29/20 12:00 Pulse 133 H 03/29/20 12:00 Resp 26 H 03/29/20 12:00 BP 137/62 03/29/20 12:00 Pulse Ox 99 03/29/20 07:56 Intake & Output 03/28/20 03/29/20 03/29/20 18:59 06:59 18:59 Intake Total 300 0 Output Total 350 550 300 Balance -50 -550 -300 Weight 85.7 kg Intake: Oral 300 0 Output: Urine 350 550 300 Other: Voiding Method Toilet # Voids 1 # Bowel Movements 0 - Labs CBC & Chem 7: 03/29/20 07:26 03/29/20 07:26 Labs: Abnormal Lab Results - Last 24 Hours (Table) 03/28/20 03/28/20 03/29/20 Range/Units 06:11 20:31 06:16 RBC (3.80-5.40) m/uL Hgb (11.4-16.0) gm/dL Hct (34.0-46.0) % Sodium (137-145) mmol/L BUN (7-17) mg/dL Creatinine (0.52-1.04) mg/dL Glucose (74-99) mg/dL POC Glucose (mg/dL) 215 H 185 H (75-99) mg/dL Hemoglobin A1c 8.2 H (4.0-6.0) % 03/29/20 03/29/20 03/29/20 Range/Units 07:26 07:26 11:41 RBC 3.62 L (3.80-5.40) m/uL Hgb 10.3 L (11.4-16.0) gm/dL Hct 31.5 L (34.0-46.0) % Sodium 136 L (137-145) mmol/L BUN 45 H (7-17) mg/dL Creatinine 1.08 H (0.52-1.04) mg/dL Glucose 204 H (74-99) mg/dL POC Glucose (mg/dL) 394 H (75-99) mg/dL Hemoglobin A1c (4.0-6.0) %
[2020-03-29] MEDS: DOXYCYCLINE 100 MG in SODIUM CHLORIDE 0.9% 100 ML IVPB SCH (16:21)
[2020-03-29] MEDS: FAMOTIDINE 20 MG/2 ML VIAL IV SCH (16:23)
[2020-03-29] MEDS: AMIODARONE 450 MG in DEXTROSE 5% IN WATER 250 ML IV SCH ×2 (16:28)
[2020-03-29 16:49] LABS: Glucose,Whole Blood 320 mg/dL (75-99)
[2020-03-29 20:13] LABS: Glucose,Whole Blood 183 mg/dL (75-99)
[2020-03-30 06:15] LABS: Glucose,Whole Blood 94 mg/dL (75-99)
[2020-03-30] MEDS: FUROSEMIDE 40 MG TAB PO SCH ×2 (06:35→16:23)
[2020-03-30] MEDS: METOPROLOL TARTRATE 25 MG TAB PO SCH (06:35)
[2020-03-30] MEDS: glipiZIDE 10 MG TAB PO SCH ×2 (06:35→16:23)
[2020-03-30] MEDS: DOXYCYCLINE 100 MG in SODIUM CHLORIDE 0.9% 100 ML IVPB SCH ×3 (06:38→20:43)
[2020-03-30] MEDS: DOXYCYCLINE 100 MG CAP PO SCH (07:45)
[2020-03-30] MEDS: INSULIN ASPART (NovoLOG) 100 UNIT/ML VIAL SQ SCH ×4 (07:46→20:43)
[2020-03-30] MEDS: lisinopriL 20 MG TAB PO SCH (07:53)
[2020-03-30] MEDS: LACTOBACILLUS ACIDOPH & BULGAR 1 EACH PACKET PO SCH (07:53)
[2020-03-30] MEDS: ASCORBIC ACID 500 MG TAB PO SCH (07:53)
[2020-03-30] MEDS: CHOLECALCIFEROL 1,000 UNIT TAB PO SCH (07:53)
[2020-03-30] MEDS: FAMOTIDINE 20 MG/2 ML VIAL IV SCH (07:53)
[2020-03-30] MEDS: APIXABAN 5 MG TAB PO SCH ×2 (07:54→20:43)
[2020-03-30] MEDS: FERROUS SULFATE 325 MG TAB PO SCH (07:54)
[2020-03-30 08:00] VITALS: RESP 18
[2020-03-30 08:36] LABS: Basophils # (A) 0.1 k/uL (0-0.2); Basophils % (A) 1 %; Eosinophils # (A) 0.2 k/uL (0-0.7); Eosinophils % (A) 2 %; HCT 32.5 % (34.0-46.0); HGB 10.5 gm/dL (11.4-16.0); Lymphocytes # (A) 2.3 k/uL (1.0-4.8); Lymphocytes % (A) 19 %; MCH 28.1 pg (25.0-35.0); MCHC 32.3 g/dL (31.0-37.0); MCV 86.9 fL (80.0-100.0); Mean Platelet Volume 10.8; Monocytes # (A) 1.2 k/uL (0-1.0); Monocytes % (A) 10 %; Neutrophils # (A) 8.2 k/uL (1.3-7.7); Neutrophils % (A) 68 %; Platelet Count 173 k/uL (150-450); RBC 3.73 m/uL (3.80-5.40); RDW 15.2 % (11.5-15.5); WBC 12.2 k/uL (3.8-10.6)
[2020-03-30 08:54] LABS: Calcium 9.6 mg/dL (8.4-10.2); Potassium 4.1 mmol/L (3.5-5.1)
[2020-03-30] MEDS: AMIODARONE 450 MG in DEXTROSE 5% IN WATER 250 ML IV SCH ×2 (09:03)
--- NOTE | 2020-03-30 10:41 | P.PN ---
Subjective Plan: Hospitalist covering Dr. Barrios over the weekend This is a pleasant 74 years old female with multiple medical problems as below who was admitted on 03/27 for dyspnea. She was recently discharged one day earlier 03/25 for pneumonia and possible interstitial pneumonia versus interstitial edema. Chest x-ray from 03/26 was suspicious for fairly pneumonia versus atelectasis in the right lung base. Recent Echo reported EF 35-40%, moderate to severe mitral regurgitation, moderate to severe tricuspid regurgitation, severe pulmonary hypertension. EKG on admission showing atrial fibrillation with RVR, QTC is 517. ProBNP is elevated more than 4000. Chest x-ray from today showing interstitial edema versus pneumonia versus congestive heart failure The patient was discharge 2 days ago she came yesterday with worsening dyspnea as well. She is already taking doxycycline at home. This morning respiratory status got worse and she wants to be placed on BiPAP however currently she feels better. She complains from minimal cough and no significant chest pain Patient currently is placed on Lasix 40 mg by mouth twice daily but she's been given IV Lasix 40 mg daily on the top of that. Also she is on Eliquis. Cardiology placed patient on amiodarone drip for possible rhythm as well as direct control. 03/30/2020 This is a pleasant 74 years old female who presents with dyspnea secondary to systolic CHF with ejection fraction of 35-40% and hypoxic respiratory failure otherwise suspicion of pneumonia Patient is awake, her oxygen status improved and she does not need BiPAP anymore. She is saturating high 90s on 2-4 L via nasal cannula. And exam showing minimal crepitation of the lung bases. Her creatinine went up a little bit to 1.35 mostly due to the steroid effect. Chest x-ray follow-up is ordered. Her pronecalcitonin is elevated 0.23. Her discomfort with exercise. Consult infectious disease for pneumonia as patient has ALLERGY to levofloxacin and penicillin. She remains on Eliquis and amiodarone as per argon tester. Also she is on oral Lasix 40 mg twice daily Influenza and covid are negative. Urine Legionella is pending Objective - Vital Signs Vital signs: Vital Signs Temp 97.9 F 03/30/20 07:59 Pulse 89 03/30/20 08:00 Resp 18 03/30/20 07:59 BP 135/67 03/30/20 07:59 Pulse Ox 99 03/30/20 07:59 Intake & Output 03/29/20 03/30/20 03/30/20 18:59 06:59 18:59 Intake Total 240 490 Output Total 1025 100 Balance -785 -100 490 Weight 85.7 kg Intake: Intake, IV Titration 250 Amount Amiodarone 450 mg In 250 Dextrose 5% in Water 250 ml @ 0.5 MG/MIN 16.667 mls/hr IV .Q15H [facility] Rx#: [id number] Oral 240 240 Output: Urine 1025 100 Other: Voiding Method Toilet # Voids 1 - Exam GENERAL: The patient is alert and oriented x3, not in any acute distress. Well developed, well nourished. HEENT: Pupils are round and equally reacting to light. EOMI. No scleral icterus. No conjunctival pallor. Normocephalic, atraumatic. No pharyngeal erythema. No thyromegaly. CARDIOVASCULAR: S1 and S2 present. No murmurs, rubs, or gallops. -PULMONARY: Chest is clear to auscultation, no wheezing or crackles. Decreased air entry bilaterally ABDOMEN: Soft, nontender, nondistended, normoactive bowel sounds. No palpable organomegaly. MUSCULOSKELETAL: No joint swelling or deformity. EXTREMITIES: No cyanosis, clubbing, or pedal edema. NEUROLOGICAL: Gross neurological examination did not reveal any focal deficits. SKIN: No rashes. no petechiae. - Labs CBC & Chem 7: 03/30/20 07:59 03/30/20 07:59 Labs: Abnormal Lab Results - Last 24 Hours (Table) 03/29/20 03/29/20 03/29/20 Range/Units 07:26 11:41 16:48 WBC (3.8-10.6) k/uL RBC (3.80-5.40) m/uL Hgb (11.4-16.0) gm/dL Hct (34.0-46.0) % Neutrophils # (1.3-7.7) k/uL Monocytes # (0-1.0) k/uL Sodium (137-145) mmol/L BUN (7-17) mg/dL Creatinine (0.52-1.04) mg/dL Glucose (74-99) mg/dL POC Glucose (mg/dL) 394 H 320 H (75-99) mg/dL Procalcitonin 0.23 H (0.02-0.09) ng/mL 03/29/20 03/30/20 03/30/20 Range/Units 20:11 07:59 07:59 WBC 12.2 H (3.8-10.6) k/uL RBC 3.73 L (3.80-5.40) m/uL Hgb 10.5 L (11.4-16.0) gm/dL Hct 32.5 L (34.0-46.0) % Neutrophils # 8.2 H (1.3-7.7) k/uL Monocytes # 1.2 H (0-1.0) k/uL Sodium 134 L (137-145) mmol/L BUN 55 H (7-17) mg/dL Creatinine 1.35 H (0.52-1.04) mg/dL Glucose 160 H (74-99) mg/dL POC Glucose (mg/dL) 183 H (75-99) mg/dL Procalcitonin (0.02-0.09) ng/mL Assessment and Plan Assessment: Acute hypo worsening dyspnea could be related to acute on chronic systolic CHF exacerbation , rule out bilateral pneumonia Acute hypoxic respiratory failure A. fib with RVR hypertension Osteoarthritis History of coronary artery disease status post stent Plan: This is a pleasant 74 years old female presents with possible pneumonia versus CHF. Continue with Lasix.cardiology consult. Continue with Eliquis. Continue with amiodarone per argon tester. We will continuen doxycycline, consult infectious disease for antibiotic management, Labs and medication were reviewed.. Continue same treatment. Continue with symptomatic treatment. Resume home medication. Monitor lytes and vitals. DVT and GI prophylaxis. Further recommendationsas per clinical course of the patient DVT prophylaxis: Liquids GI Prophylaxis: Pepcid PT/OT: Pending Prognosis is guarded
--- NOTE | 2020-03-30 11:00 | XR ---
EXAMINATION TYPE: XR chest 1V DATE OF EXAM: 03/30/2020 COMPARISON: Chest x-ray 03/29/2020 HISTORY: Shortness of breath, follow-up TECHNIQUE: Single frontal view of the chest is obtained. FINDINGS: Bibasilar increased attenuation obscures the hemidiaphragms, left heart border. Heart size may be accentuated by technique. No evident pneumothorax. There are overlying cardiac leads. Interst itium is increased. IMPRESSION: Correlate for possible congestive heart failure, there are bibasilar effusions and assoc iated atelectasis versus edema, pneumonia not excluded
[2020-03-30 11:45] LABS: Glucose,Whole Blood 265 mg/dL (75-99)
--- NOTE | 2020-03-30 12:50 | P.PN ---
Subjective This is a 74-year-old female past medical history significant for hypertension, dyslipidemia, coronary artery disease status post PCI to the RCA and LAD, ischemic cardiomyopathy and former nicotine dependence. She follows my office with Dr. Chavez. Patient was seen and examined sitting up in the chair in no acute distress. She has converted to sinus mechanism. Currently maintained on amiodarone infusion along with Lopressor and Eliquis. She is complaining of hallucinations. She states she sees a man standing outside her door staring at her wearing a backpack. Overall her breathing has improved. She feels as if her shortness of breath was associated with when she was in A. fib with RVR. She denies chest pain, dizziness or palpitations. But pressure 135/67 heart rate 89 afebrile maintaining oxygen saturation on nasal cannula. Laboratory data reviewed, WBC 12.2, hemoglobin 10.5, platelets 134, sodium 4.1 and creatinine 1.35. GENERAL: Well-appearing, well-nourished and in no acute distress. NECK: Supple without JVD or thyromegaly. LUNGS: Bibasilar rales, no wheezes or rhonchi. Respiration equal and unlabored. HEART: Irregular rate and rhythm with systolic ejection murmur at the base, no rubs or gallops. S1 and S2 heard. EXTREMITIES: Normal range of motion, no edema. No clubbing or cyanosis. Peripheral pulses intact. ASSESSMENT Paroxysmal atrial fibrillation with rapid ventricular rate Coronary artery disease status post PCI Ischemic cardiomyopathy, ejection fraction 35-40% Acute on chronic systolic heart failure Hypertension Dyslipidemia Former nicotine dependence Hallucinations PLAN Transition to oral amiodarone. Decrease Lopressor to 50 mg twice a day. Continue to monitor on telemetry. Expect possible discharge in the next 24-48 hours if her heart rates remained controlled. Nurse Practitioner note has been reviewed, I agree with a documented findings and plan of care. Patient was seen and examined. Objective - Vital Signs Vital signs: Vital Signs Temp 97.9 F 03/30/20 07:59 Pulse 89 03/30/20 08:00 Resp 18 03/30/20 07:59 BP 135/67 03/30/20 07:59 Pulse Ox 99 03/30/20 07:59 Intake & Output 03/29/20 03/30/20 03/30/20 18:59 06:59 18:59 Intake Total 240 490 Output Total 1025 100 Balance -785 -100 490 Weight 85.7 kg Intake: Intake, IV Titration 250 Amount Amiodarone 450 mg In 250 Dextrose 5% in Water 250 ml @ 0.5 MG/MIN 16.667 mls/hr IV .Q15H [facility] Rx#: [id number] Oral 240 240 Output: Urine 1025 100 Other: Voiding Method Toilet # Voids 1 - Labs CBC & Chem 7: 03/30/20 07:59 03/30/20 07:59 Labs: Abnormal Lab Results - Last 24 Hours (Table) 03/29/20 03/29/20 03/29/20 Range/Units 07:26 11:41 16:48 WBC (3.8-10.6) k/uL RBC (3.80-5.40) m/uL Hgb (11.4-16.0) gm/dL Hct (34.0-46.0) % Neutrophils # (1.3-7.7) k/uL Monocytes # (0-1.0) k/uL Sodium (137-145) mmol/L BUN (7-17) mg/dL Creatinine (0.52-1.04) mg/dL Glucose (74-99) mg/dL POC Glucose (mg/dL) 394 H 320 H (75-99) mg/dL Procalcitonin 0.23 H (0.02-0.09) ng/mL 03/29/20 03/30/20 03/30/20 Range/Units 20:11 07:59 07:59 WBC 12.2 H (3.8-10.6) k/uL RBC 3.73 L (3.80-5.40) m/uL Hgb 10.5 L (11.4-16.0) gm/dL Hct 32.5 L (34.0-46.0) % Neutrophils # 8.2 H (1.3-7.7) k/uL Monocytes # 1.2 H (0-1.0) k/uL Sodium 134 L (137-145) mmol/L BUN 55 H (7-17) mg/dL Creatinine 1.35 H (0.52-1.04) mg/dL Glucose 160 H (74-99) mg/dL POC Glucose (mg/dL) 183 H (75-99) mg/dL Procalcitonin (0.02-0.09) ng/mL
[2020-03-30 13:37] LABS: C Reactive Protein 50.1 mg/L (<10.0)
[2020-03-30] MEDS: AMIODARONE 200 MG TAB PO SCH ×2 (16:23→20:47)
[2020-03-30 16:48] LABS: Glucose,Whole Blood 183 mg/dL (75-99)
[2020-03-30 20:09] LABS: Glucose,Whole Blood 155 mg/dL (75-99)
[2020-03-30] MEDS: METOPROLOL TARTRATE 50 MG TAB PO SCH (20:44)
--- NOTE | 2020-03-30 23:06 | CONS ---
CONSULTATION DATE OF CONSULTATION: 03/30/2020 REASON FOR CONSULTATION: Pneumonia with multiple antibiotic allergies. HISTORY OF PRESENT ILLNESS: The patient is a 74-year-old female who was recently admitted to this facility and this patient presented to the hospital with increasing shortness of breath. Patient was diagnosed with atrial fibrillation with RVR. She was admitted on the and discharged the next day after apparently control of her heart rate. The patient said when she went at the time she was in the hospital she was feeling better. However, when she got home, the patient continued to have increasing shortness of breath. The very next day, the patient woke up and she could hardly breathe. The patient denies having any chest pain. Denies having any cough or URI symptoms. No fever, no chills. With these symptoms, the patient was brought back to the ER on the . On arrival to the ER, the patient has been afebrile and no fever has been recorded since then. The patient did have mild elevated white count 11.1, next white count 9.1. However, the white count up to 12.2 today. The patient did have a D-dimer 1.08. Kidney function has been normal. Influenza PCR was negative. Barnhart PCR was negative. The patient's chest x-ray reported on admission with suspect CHF exacerbation as there is mild cardiomegaly with edema and small bilateral effusion. Chest x-ray raised the possibility of pneumonia. Patient has been currently on doxycycline because of her MULTIPLE ANTIBIOTIC ALLERGIES. Infectious Disease was consulted for antibiotic management and concern for pneumonia. The patient did mention overall improvement in her breathing since admission to the hospital and denies having any chest pain or cough. No abdominal pain. No diarrhea. REVIEW OF SYSTEMS: Positive points have been mentioned in HPI. Rest of systems are negative. PAST MEDICAL HISTORY: Diabetes mellitus, hypertension, [place], osteoarthritis, atrial fibrillation. PAST SURGICAL HISTORY: PTCA with stent, D and C. SOCIAL HISTORY: Remote history of smoking. No drinking or drug use. FAMILY HISTORY: Father history of lung cancer, diabetes. Mother history of emphysema. ALLERGIES: TO PENICILLIN, AZITHROMYCIN, CIPROFLOXACIN. MEDICATIONS: The patient is currently on amiodarone, Eliquis, vitamin C, doxycycline 100 mg twice a day, she is on Pepcid, iron sulfate, Lasix, Glucotrol, NovoLog, Lactinex, Zestril, Lopressor. PHYSICAL EXAMINATION: Blood pressure 147/65 with a pulse of 67, temperature 97.8. She is 100 percent on 2 L nasal cannula. General description is an elderly female lying in bed in no distress. No tachypnea or accessory muscle of respiration use. HEENT: Examination shows no pallor or scleral icterus. Oral mucous membranes dry. NECK: Trachea is central. No thyromegaly. LUNGS unlabored breathing, decreased breath sounds in the base, with no wheeze. HEART S1, S2. Regular rhythm. ABDOMEN soft. No tenderness. No guarding. No rigidity. EXTREMITIES: No edema of the feet. SKIN examination: No rash or mass palpable. NEUROLOGICAL: Patient is awake, alert, oriented times three. Mood and affect normal. LABS: Hemoglobin is 10.5, white count of 12.2, BUN of 55, creatinine is 1.35. Electrolytes have been normal. Liver enzymes are normal. Procalcitonin checked yesterday was 0.23. DIAGNOSTIC IMPRESSION AND PLAN: 1. Patient admitted to the hospital with increasing shortness of breath in this patient likely recurrent atrial fibrillation with RVR with secondary congestive heart failure. Patient clinically not behaving as pneumonia. This patient did not have any fever. Mild elevated white count could be related to her congestive heart failure rather than pneumonia. 2. Patient does have MULTIPLE ANTIBIOTIC ALLERGIES that will limit the number of antibiotics safe to use. PLAN: 1. Discontinue doxycycline. 2. Continue with underlying treatment for CHF per Cardiology. 3. We will monitor the patient closely off antibiotic therapy. 4. We will follow up on clinical condition and further adjust medication if needed. Thank you for this consultation. Will follow the patient along with you. MMODL / IJN: [id number] /
[2020-03-31 06:08] LABS: Glucose,Whole Blood 110 mg/dL (75-99)
[2020-03-31] MEDS: INSULIN ASPART (NovoLOG) 100 UNIT/ML VIAL SQ SCH (06:11)
[2020-03-31] MEDS: FUROSEMIDE 40 MG TAB PO SCH (06:31)
[2020-03-31] MEDS: glipiZIDE 10 MG TAB PO SCH (06:33)
[2020-03-31 07:48] LABS: Basophils % (A) 0 %; Eosinophils # (A) 0.3 k/uL (0-0.7); Eosinophils % (A) 2 %; HCT 31.6 % (34.0-46.0); HGB 10.5 gm/dL (11.4-16.0); Lymphocytes # (A) 1.8 k/uL (1.0-4.8); Lymphocytes % (A) 16 %; MCH 28.4 pg (25.0-35.0); MCV 85.9 fL (80.0-100.0); Mean Platelet Volume 10.1; Monocytes # (A) 1.1 k/uL (0-1.0); Monocytes % (A) 10 %; Neutrophils % (A) 71 %; Platelet Count 181 k/uL (150-450); RBC 3.68 m/uL (3.80-5.40); RDW 15.3 % (11.5-15.5); WBC 11.3 k/uL (3.8-10.6)
[2020-03-31 08:00] VITALS: BP 150/66; PULSE 78; TEMP 98
[2020-03-31 08:00] LABS: Calcium 9.5 mg/dL (8.4-10.2); Potassium 3.8 mmol/L (3.5-5.1)
[2020-03-31] MEDS: FAMOTIDINE 20 MG/2 ML VIAL IV SCH (08:00)
[2020-03-31] MEDS: CHOLECALCIFEROL 1,000 UNIT TAB PO SCH (08:00)
[2020-03-31] MEDS: METOPROLOL TARTRATE 50 MG TAB PO SCH (08:01)
[2020-03-31] MEDS: FERROUS SULFATE 325 MG TAB PO SCH (08:01)
[2020-03-31] MEDS: lisinopriL 20 MG TAB PO SCH (08:01)
[2020-03-31] MEDS: LACTOBACILLUS ACIDOPH & BULGAR 1 EACH PACKET PO SCH (08:01)
[2020-03-31] MEDS: AMIODARONE 200 MG TAB PO SCH (08:01)
[2020-03-31] MEDS: ASCORBIC ACID 500 MG TAB PO SCH (08:01)
[2020-03-31] MEDS: APIXABAN 5 MG TAB PO SCH (08:01)
--- NOTE | 2020-03-31 08:13 | P.DS ---
Providers Date of admission: 03/27/20 10:11 Attending physician: Last Barrios Consults: 03/27/20 10:17 Consult Physician Urgent Consulting Provider: José Ybarra Consult Reason/Comments: A. fib Do you want consulting provider notified?: Yes 03/30/20 10:37 Consult Physician Routine Consulting Provider: Mira Oswald Consult Reason/Comments: pneumonia, penicillin allergy Do you want consulting provider notified?: Yes Primary care physician: Last Barrios - Discharge Diagnosis(es) (1) Atrial fibrillation with RVR Current Visit: Yes Status: Acute (2) Congestive heart failure Current Visit: No Status: Acute Hospital Course: This discharge summary 74-year-old white female essentially admitted for recurrent atrial fibrillation. The patient has paroxysmal A. fib and was stabilized with Cardizem. The patient was then given amiodarone and transition to oral amiodarone. Once cleared by cardiology we will discharge. The patient is and voiding without difficulty and having no shortness of breath and back to certain baseline. The patient will follow-up with me in about 3 days. Patient Condition at Discharge: Fair Plan - Discharge Summary Discharge Rx Participant: No New Discharge Prescriptions: New Apixaban [Eliquis] 5 mg PO BID #60 tab Amiodarone [Cordarone] 200 mg PO TID #90 tab Continue glipiZIDE [Glipizide ER] 20 mg PO QAM Ferrous Sulfate [Iron (65 MG Elemental)] 325 mg PO DAILY Cholecalciferol [Vitamin D3 (10 Mcg = 400 Iu)] 2,000 unit PO DAILY@1200 Furosemide [Lasix] 40 mg PO BID #60 tab Aspirin 81 mg PO DAILY #30 chew Vitamin B Complex 1 cap PO DAILY Ascorbic Acid [Vitamin C] 500 mg PO DAILY Metoprolol Tartrate [Lopressor] 50 mg PO BID-W/MEALS Enalapril Maleate [Vasotec] 5 mg PO BID L.acidoph,Paracasei, B.lactis [Probiotic] 1 tab PO DAILY Doxycycline [Vibramycin] 100 mg PO BID 1 Days #10 capsule Discharge Medication List glipiZIDE [Glipizide ER] 20 mg PO QAM 01/08/14 [History] Ferrous Sulfate [Iron (65 MG Elemental)] 325 mg PO DAILY 02/12/19 [History] Cholecalciferol [Vitamin D3 (10 Mcg = 400 Iu)] 2,000 unit PO DAILY@1200 06/29/19 [History] Aspirin 81 mg PO DAILY #30 chew 07/01/19 [Rx] Furosemide [Lasix] 40 mg PO BID #60 tab 07/01/19 [Rx] Ascorbic Acid [Vitamin C] 500 mg PO DAILY 03/25/20 [History] Enalapril Maleate [Vasotec] 5 mg PO BID 03/25/20 [History] L.acidoph,Paracasei, B.lactis [Probiotic] 1 tab PO DAILY 03/25/20 [History] Metoprolol Tartrate [Lopressor] 50 mg PO BID-W/MEALS 03/25/20 [History] Vitamin B Complex 1 cap PO DAILY 03/25/20 [History] Doxycycline [Vibramycin] 100 mg PO BID 1 Days #10 capsule 03/26/20 [Rx] Apixaban [Eliquis] 5 mg PO BID #60 tab 03/28/20 [Rx] Amiodarone [Cordarone] 200 mg PO TID #90 tab 03/31/20 [Rx] Follow up Appointment(s)/Referral(s): Mnia Chavez MD [STAFF PHYSICIAN] - 04/04/20 2:30 pm Last Barrios MD [Primary Care Provider] - 3 Days Discharge Disposition: HOME SELF-CARE
--- NOTE | 2020-03-31 12:58 | P.PN ---
Subjective Progress Note Date: 03/31/20 CHIEF COMPLAINT: Mary patrick with RVR HISTORY OF PRESENT ILLNESS: 03/28/2020 This is a 74-year-old female with a past medical history significant for hypertension, hyperlipidemia, former nicotine dependence, coronary artery disease with previous stenting to the RCA and mid LAD, and ischemic cardiomyopathy. Patient follows in the office with Dr. Chavez. We have been asked to see the patient in consultation for Janneth. darnell with RVR. Patient was hospitalized on 03/26/2020 for new onset atrial fibrillation. She refused to have her beta chely increased at that time. Patient also refused anticoagulation at that time. Patient is now agreeable to anticoagulation. The patient was started on a Cardizem drip and a heparin drip in the emergency room. The patient has converted to sinus rhythm and is currently maintaining a heart rate in the 60s. Echocardiogram revealed ejection fraction 35-40%, moderate to severe mitral regurgitation, moderate to severe tricuspid regurgitation and severe pulmonary hypertension 03/31/2020 Patient examined at the bedside. She denies chest pain or pressure. Denies shortness of breath. She is currently maintaining sinus mechanism. Heart rate in the 70s. She is hoping to be discharged home today. PHYSICAL EXAM: VITAL SIGNS: Reviewed. GENERAL: Well-developed in no acute distress. HEENT: Head is normocephalic. Pupils are equal, round. Sclerae anicteric. Mucous membranes of the mouth are moist. Neck supple. No JVD or thyromegaly LUNGS: Respirations even and unlabored. Lungs essentially clear to auscultation bilaterally. HEART: Regular rate and rhythm. S1 and S2 heard. Systolic murmur. ABDOMEN: Soft. Nondistended. Nontender. EXTREMITIES: Normal range of motion. No clubbing or cyanosis. Peripheral pulses intact. No lower extremity edema NEUROLOGIC: Awake and alert. Oriented x 3. ASSESSMENT: Paroxysmal atrial fibrillation with RVR Coronary artery disease with previous stent to the RCA, date unknown, and stent to LAD, February 2019 Ischemic cardiomyopathy, ejection fraction 35-40% Acute on chronic systolic heart failure Hypertension Hyperlipidemia Former nicotine dependence PLAN: Continue current cardiac medications Patient is stable for discharge from a cardiac standpoint. She is to follow up outpatient with Dr. Chavez Nurse practitioner note has been reviewed by physician. Signing provider agrees with the documented findings, assessment, and plan of care. Objective - Vital Signs Vital signs: Vital Signs Temp 98 F 03/31/20 07:59 Pulse 78 03/31/20 08:00 Resp 18 03/31/20 07:59 BP 150/66 03/31/20 07:59 Pulse Ox 100 03/31/20 07:59 Intake & Output 03/30/20 03/31/20 03/31/20 18:59 06:59 18:59 Intake Total 970 100 480 Output Total 700 Balance 970 -600 480 Weight 86 kg Intake: Intake, IV Titration 250 100 Amount Amiodarone 450 mg In 250 Dextrose 5% in Water 250 ml @ 0.5 MG/MIN 16.667 mls/hr IV .Q15H [facility] Rx#: [id number] Doxycycline 100 mg In 100 Sodium Chloride 0.9% 100 ml @ 100 mls/hr IVPB Q12HR [facility] Rx#:[id number] Oral 720 480 Output: Urine 700 Other: Voiding Method Toilet # Voids 1 1 - Labs CBC & Chem 7: 03/31/20 07:25 03/31/20 07:25 Labs: Abnormal Lab Results - Last 24 Hours (Table) 03/30/20 03/30/20 03/30/20 Range/Units 07:59 07:59 13:20 WBC (3.8-10.6) k/uL RBC (3.80-5.40) m/uL Hgb (11.4-16.0) gm/dL Hct (34.0-46.0) % Neutrophils # (1.3-7.7) k/uL Monocytes # (0-1.0) k/uL D-Dimer 1.08 H (<0.60) mg/L FEU Sodium (137-145) mmol/L BUN (7-17) mg/dL Creatinine (0.52-1.04) mg/dL Glucose (74-99) mg/dL POC Glucose (mg/dL) (75-99) mg/dL C-Reactive Protein 50.1 H (<10.0) mg/L Procalcitonin 1.14 H (0.02-0.09) ng/mL 03/30/20 03/30/20 03/31/20 Range/Units 16:47 20:08 06:06 WBC (3.8-10.6) k/uL RBC (3.80-5.40) m/uL Hgb (11.4-16.0) gm/dL Hct (34.0-46.0) % Neutrophils # (1.3-7.7) k/uL Monocytes # (0-1.0) k/uL D-Dimer (<0.60) mg/L FEU Sodium (137-145) mmol/L BUN (7-17) mg/dL Creatinine (0.52-1.04) mg/dL Glucose (74-99) mg/dL POC Glucose (mg/dL) 183 H 155 H 110 H (75-99) mg/dL C-Reactive Protein (<10.0) mg/L Procalcitonin (0.02-0.09) ng/mL 03/31/20 03/31/20 Range/Units 07:25 07:25 WBC 11.3 H (3.8-10.6) k/uL RBC 3.68 L (3.80-5.40) m/uL Hgb 10.5 L (11.4-16.0) gm/dL Hct 31.6 L (34.0-46.0) % Neutrophils # 8.0 H (1.3-7.7) k/uL Monocytes # 1.1 H (0-1.0) k/uL D-Dimer (<0.60) mg/L FEU Sodium 136 L (137-145) mmol/L BUN 57 H (7-17) mg/dL Creatinine 1.30 H (0.52-1.04) mg/dL Glucose 116 H (74-99) mg/dL POC Glucose (mg/dL) (75-99) mg/dL C-Reactive Protein (<10.0) mg/L Procalcitonin (0.02-0.09) ng/mL
--- NOTE | 2020-03-31 13:29 | PN ---
PROGRESS NOTE DATE OF SERVICE: 03/31/2020 REASON FOR FOLLOWUP: Question of pneumonia and elevated white count. INTERVAL HISTORY: The patient was seen on rounds this morning. The patient has been afebrile. Patient is breathing comfortably on room air. Denies having any chest pain or cough. No nausea, no vomiting. No abdominal pain or diarrhea. PHYSICAL EXAMINATION: Her blood pressure 150/66, pulse of 78, temperature 98. She is 100% on room air. General description is an elderly female up in the chair in no distress. RESPIRATORY SYSTEM: Unlabored breathing, decreased breath sounds in the bases. No wheeze, HEART: S1, S2. Irregular rate and rhythm. ABDOMEN: Soft, no tenderness. EXTREMITIES: No edema of the feet. LABS: Hemoglobin 10.5, white count 11.3, BUN of 57, and creatinine 1.30. DIAGNOSTIC IMPRESSION AND PLAN: Patient with shortness of breath, more likely secondary to atrial fibrillation with rapid ventricular response and secondary cardiac decompensation. Clinically not behaving as pneumonia. Patient with no fever. Mildly elevated white count more likely because of stress from congestive heart failure. Recommend no antibiotic on discharge. Continue supportive care. MMODL / IJN: [id number] /
[2020-04-01] MEDS ORDERED: FAMOTIDINE 20 MG TAB PO SCH (09:00)
== END 2020-03-31 14:03 | disposition home or self-care (01) | DRG 308 ==
LOC: EC 09:23 → 3SCARD 10:11
PROVIDERS: ADMIT Family Medicine; ATTEND Family Medicine
PROC: 5A09457 Assistance with Respiratory Ventilation, 24-96 Consecutive Hours, Continuous Positive Airway Pressure (ICD-10-PCS; principal; 2020-03-31)
DX: I48.0 Paroxysmal atrial fibrillation (principal); J96.01 Acute respiratory failure with hypoxia; J18.9 Pneumonia, unspecified organism; I50.22 Chronic systolic (congestive) heart failure; M19.90 Unspecified osteoarthritis, unspecified site; I25.10 Atherosclerotic heart disease of native coronary artery without angina pectoris; I08.1 Rheumatic disorders of both mitral and tricuspid valves; E78.5 Hyperlipidemia, unspecified; E11.9 Type 2 diabetes mellitus without complications; I25.5 Ischemic cardiomyopathy; I11.0 Hypertensive heart disease with heart failure; Z20.822 Contact with and (suspected) exposure to COVID-19; I27.20 Pulmonary hypertension, unspecified; Z79.82 Long term (current) use of aspirin; Z79.01 Long term (current) use of anticoagulants; Z79.899 Other long term (current) drug therapy; Z80.1 Family history of malignant neoplasm of trachea, bronchus and lung; Z82.5 Family history of asthma and other chronic lower respiratory diseases; Z83.3 Family history of diabetes mellitus; Z87.891 Personal history of nicotine dependence; Z95.5 Presence of coronary angioplasty implant and graft; Z88.1 Allergy status to other antibiotic agents; Z88.0 Allergy status to penicillin; Z86.74 Personal history of sudden cardiac arrest; Z88.8 Allergy status to other drugs, medicaments and biological substances; Z91.012 Allergy to eggs; Z91.040 Latex allergy status; I25.2 Old myocardial infarction; Z98.890 Other specified postprocedural states
CPT/HCPCS: 36415; 71045; 71046; 80048; 80053; 80061; 83036; 83615; 83735; 83880; 84145; 84484; 85025; 85027; 85379; 85610; 85730; 86140; 86684; 87449; 87502; 87635; 93005; 96365; 96366; 96368; 96376; 99291

== ENCOUNTER 2020-04-14 10:59 | Emergency (ER) | payer MEDICARE, OTHER ==
[2020-04-14 11:06] VITALS: BP 157/73; PULSE 61; RESP 18; TEMP 98.1
[2020-04-14 11:45] LABS: Appearance,Urine Clear (Clear); Bilirubin,Urine Negative (Negative); Blood,Urine Negative (Negative); Color,Urine Light Yellow; Glucose,Urine (UA) Negative (Negative); Ketones,Urine Negative (Negative); Leukocyte Esterase,Urine Negative (Negative); Nitrite,Urine Negative (Negative); Protein,Urine Negative (Negative); Specific Gravity,Urine 1.009 (1.001-1.035); Urobilinogen,Urine <2.0 mg/dL (<2.0)
--- NOTE | 2020-04-14 12:01 | XR ---
EXAMINATION TYPE: XR KUB DATE OF EXAM: 04/14/2020 11:55 AM CLINICAL HISTORY: Constipation, possible UTI. TECHNIQUE: Single upright KUB image of the abdomen is obtained. COMPARISON: Abdominal x-ray November 16, 2019. FINDINGS: Scattered gas is seen in non-distended small bowel loops. Gas and fecal material is seen in non-distended colon. There is no visceromegaly, pneumoperitoneum, or abnormal calcification apprecia edel. Multilevel spurring in the spine. Moderate axial joint space loss in both hips. Lung bases are c lear. IMPRESSION: Overall nonobstructive bowel gas pattern.
--- NOTE | 2020-04-14 12:32 | ED ---
Female Urogenital HPI - General Chief complaint: Urogenital Stated complaint: Bladder Pain Time Seen by Provider: 04/14/20 11:08 Source: patient Mode of arrival: ambulatory Limitations: no limitations - History of Present Illness Initial comments: 74-year-old male presenting for burning after urination, patient states that she has had burning with urine touches her skin since she has had diarrhea last week that lasted 3 days. she states that the diarrhea has subsided. she states she hasnt had a large bowel movement since. denies abdominal pain, nausea, vomiting, flank pain. Patient denies vaginal discharge/odors. is bloody or dark stools.Patient states that she has had increased frequency, pain with urination. patient denies additional complaints. patient appears well nontoxic no acute distress. afebrile. - Related Data Home Medications Medication Instructions Recorded Confirmed glipiZIDE [Glipizide ER] 20 mg PO DAILY 01/08/14 04/14/20 Ferrous Sulfate [Iron (65 MG 325 mg PO DAILY 02/12/19 04/14/20 Elemental)] Ascorbic Acid [Vitamin C] 500 mg PO DAILY 03/25/20 04/14/20 Enalapril Maleate [Vasotec] 5 mg PO BID 03/25/20 04/14/20 L.acidoph,Paracasei, B.lactis 1 tab PO DAILY 03/25/20 04/14/20 [Probiotic] Metoprolol Tartrate [Lopressor] 50 mg PO AC-BID 03/25/20 04/14/20 Vitamin B Complex 1 cap PO DAILY 03/25/20 04/14/20 Cholecalciferol [Vitamin D3 (25 50 mcg PO DAILY@1200 04/14/20 04/14/20 Mcg = 1000 Iu)] Previous Rx's Medication Instructions Recorded Aspirin 81 mg PO DAILY #30 chew 07/01/19 Furosemide [Lasix] 40 mg PO BID #60 tab 07/01/19 Apixaban [Eliquis] 5 mg PO BID #60 tab 03/28/20 Amiodarone [Cordarone] 200 mg PO TID #90 tab 03/31/20 Fluconazole [Diflucan] 150 mg PO ONCE 1 Days #1 tab 04/14/20 Menthol/Zinc Oxide [Calmoseptine 1 applic TOPICAL BID 10 Days #71 gm 04/14/20 Ointment] Allergies Allergy/AdvReac Type Severity Reaction Status Date / Time Corticosteroids Allergy Unknown Unknown Verified 04/14/20 12:09 (Glucocorticoids) azithromycin [From Zithromax] Allergy Anaphylaxis Verified 04/14/20 12:09 banana Allergy Unknown Verified 04/14/20 12:09 carisoprodol [From Soma] Allergy Unknown Verified 04/14/20 12:09 ciprofloxacin [From Cipro] Allergy Unknown Verified 04/14/20 12:09 cortisone [Cortisone] Allergy Unknown Verified 04/14/20 12:09 cyclobenzaprine HCl Allergy Unknown Verified 04/14/20 12:09 [From Flexeril] egg Allergy Unknown Verified 04/14/20 12:09 latex Allergy Unknown Verified 04/14/20 12:09 Latex, Natural Rubber Allergy Unknown Verified 04/14/20 12:09 levofloxacin [From Levaquin] Allergy Anaphylaxis Verified 04/14/20 12:09 Penicillins Allergy Anaphylaxis Verified 04/14/20 12:09 Review of Systems ROS Statement: Those systems with pertinent positive or pertinent negative responses have been documented in the HPI. ROS Other: All systems not noted in ROS Statement are negative. 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 Last Myocardial Infarction Date:: 01-03-14 History of Any Multi-Drug Resistant Organisms: None Reported Past Surgical History: Heart Catheterization With Stent Additional Past Surgical History / Comment(s): d&c, stent RCA 01-07-14, stent LAD 02/14/2019 Past Anesthesia/Blood Transfusion Reactions: No Reported Reaction Date of Last Stent Placement:: 2013 Past Psychological History: No Psychological Hx Reported Smoking Status: Former smoker Past Alcohol Use History: None Reported Past Drug Use History: None Reported - Past Family History Father Family Medical History: Cancer, Diabetes Mellitus Additional Family Medical History / Comment(s): age 70 from lung cancer Mother Additional Family Medical History / Comment(s): age 83 emphysema General Exam - General Exam Comments Initial Comments: General: The patient is awake and alert, in no distress Eye: +3 mm pupils are equal, round and reactive to light, extra-ocular movements are intact. No nystagmus. There is normal conjunctiva bilaterally. No signs of icterus. Ears, nose, mouth and throat: There are moist mucous membranes and no oral lesions. Neck: The neck is supple, there is no tenderness or JVD. Cardiovascular: There is a regular rate and rhythm. No murmur, rub or gallop is appreciated. Respiratory: Lungs are clear to auscultation, respirations are non-labored, breath sounds are equal. No wheezes, stridor, rales, or rhonchi. Gastrointestinal: Soft, non-distended, non-tender abdomen without masses or organomegaly noted. There is no rebound or guarding present. Vaginal exam: external vaginal/perianal excoriation/irritation/pain to touch. Musculoskeletal: Normal ROM, no tenderness. Strength 5/5. Sensation intact. Radial pulses equal bilaterally 2+. Neurological: A&O x 3. CN II-XII intact grossly, There are no obvious motor or sensory deficits. Coordination appears grossly intact. Speech is normal. Skin: Skin is warm and dry and no rashes or lesions are noted. Psychiatric: Cooperative, appropriate mood & affect, normal judgment. Limitations: no limitations Course Vital Signs 04/14/20 11:03 Temperature 98.1 F Pulse Rate 61 Respiratory 18 Rate Blood Pressure 157/73 O2 Sat by Pulse 100 Oximetry Medical Decision Making - Medical Decision Making 74yo female prsenting fo pain with urination when urine touches skin. send diarrhea. Excoriation on examination does not appear consistent sialitis no swelling no vesicular lesions noted. Patient has no signs of infection in urine. patient afbrile. no abdominal pain. pt will be discharged with calmoseptine and diflucan. patient agreeable to this care plan and discharge. - Lab Data Lab Results 04/14/20 Range/Units 11:37 Urine Color Light Yellow Urine Appearance Clear (Clear) Urine pH 6.0 (5.0-8.0) Ur Specific [place] 1.009 (1.001-1.035) Urine Protein Negative (Negative) Urine Glucose (UA) Negative (Negative) Urine Ketones Negative (Negative) Urine Blood Negative (Negative) Urine Nitrite Negative (Negative) Urine Bilirubin Negative (Negative) Urine Urobilinogen <2.0 (<2.0) mg/dL Ur Leukocyte Esterase Negative (Negative) Disposition Clinical Impression: Dysuria, Vaginal irritation, Excoriation Disposition: HOME SELF-CARE Condition: Good Additional Instructions: Please use medication as discussed. Please follow-up with family doctor in the next 2 days. Please return to emergency room if the symptoms increase or wor sen or for any other concerns. Prescriptions: Menthol/Zinc Oxide [Calmoseptine Ointment] 1 applic TOPICAL BID 10 Days #71 gm Fluconazole [Diflucan] 150 mg PO ONCE 1 Days #1 tab Is patient prescribed a controlled substance at d/c from ED?: No Referrals: Last Barrios MD [Primary Care Provider] - 1-2 days Time of Disposition: 12:31
== END 2020-04-14 12:53 | disposition home or self-care (01) ==
LOC: EC 10:59
DX: N89.8 Other specified noninflammatory disorders of vagina (principal); S30.814A Abrasion of vagina and vulva, initial encounter; S30.817A Abrasion of anus, initial encounter; E11.9 Type 2 diabetes mellitus without complications; I10 Essential (primary) hypertension; I48.91 Unspecified atrial fibrillation; I25.2 Old myocardial infarction; Z79.84 Long term (current) use of oral hypoglycemic drugs; Z88.1 Allergy status to other antibiotic agents; Z88.8 Allergy status to other drugs, medicaments and biological substances; Z91.018 Allergy to other foods; Z91.012 Allergy to eggs; Z91.040 Latex allergy status; Z88.0 Allergy status to penicillin; Z91.048 Other nonmedicinal substance allergy status; Z87.891 Personal history of nicotine dependence; Z95.5 Presence of coronary angioplasty implant and graft; Z86.74 Personal history of sudden cardiac arrest
CPT/HCPCS: 74018; 81003; 87086; 99283

== ENCOUNTER 2020-04-22 04:58 | Inpatient (IN) | payer MEDICARE, OTHER ==
[2020-04-22] MEDS ORDERED: NITROGLYCERIN SL TABS 0.4 MG TAB SUBLINGUAL STA (05:05)
[2020-04-22] MEDS ORDERED: MORPHINE SULFATE 4 MG/ML SYRINGE IV STA ×2 (05:05→05:15)
[2020-04-22] MEDS ORDERED: NITROGLYCERIN-D5W PMX 50 MG in DEXTROSE/WATER 1 250ML.BAG IV ONE (05:13)
--- NOTE | 2020-04-22 05:14 | ED ---
SOB HPI - General Chief Complaint: Shortness of Breath Stated Complaint: PERCY Time Seen by Provider: 04/22/20 05:00 Source: patient, EMS Mode of arrival: EMS - History of Present Illness Initial Comments: Patient is 75-year-old woman who woke this morning to use the bathroom and then became progressively more short of breath. History is limited by severe dyspnea. Patient denies chest pain. MD Complaint: shortness of breath Onset/Timin -: hour(s) Consistency: constant Improves With: oxygen Worsens With: lying flat Associated Symptoms: denies other symptoms Treatments Prior to Arrival: none - Related Data Home Oxygen Therapy: No Home Medications Medication Instructions Recorded Confirmed glipiZIDE [Glipizide ER] 10 mg PO BID 01/08/14 04/22/20 Ferrous Sulfate [Iron (65 MG 325 mg PO DAILY 02/12/19 04/22/20 Elemental)] Ascorbic Acid [Vitamin C] 500 mg PO DAILY 03/25/20 04/22/20 Enalapril Maleate [Vasotec] 5 mg PO BID 03/25/20 04/22/20 L.acidoph,Paracasei, B.lactis 1 tab PO DAILY 03/25/20 04/22/20 [Probiotic] Metoprolol Tartrate [Lopressor] 50 mg PO AC-BID 03/25/20 04/22/20 Vitamin B Complex 1 cap PO DAILY 03/25/20 04/22/20 Cholecalciferol [Vitamin D3 (25 50 mcg PO DAILY 04/14/20 04/22/20 Mcg = 1000 Iu)] Amiodarone [Cordarone] 200 mg PO BID 04/22/20 04/22/20 Previous Rx's Medication Instructions Recorded Aspirin 81 mg PO DAILY #30 chew 07/01/19 Furosemide [Lasix] 40 mg PO BID #60 tab 07/01/19 Apixaban [Eliquis] 5 mg PO BID #60 tab 03/28/20 Allergies Allergy/AdvReac Type Severity Reaction Status Date / Time Corticosteroids Allergy Unknown Unknown Verified 04/22/20 06:40 (Glucocorticoids) azithromycin [From Zithromax] Allergy Anaphylaxis Verified 04/22/20 06:40 banana Allergy Unknown Verified 04/22/20 06:40 carisoprodol [From Soma] Allergy Unknown Verified 04/22/20 06:40 ciprofloxacin [From Cipro] Allergy Unknown Verified 04/22/20 06:40 cortisone [Cortisone] Allergy Unknown Verified 04/22/20 06:40 cyclobenzaprine HCl Allergy Unknown Verified 04/22/20 06:40 [From Flexeril] egg Allergy Unknown Verified 04/22/20 06:40 latex Allergy Unknown Verified 04/22/20 06:40 Latex, Natural Rubber Allergy Unknown Verified 04/22/20 06:40 levofloxacin [From Levaquin] Allergy Anaphylaxis Verified 04/22/20 06:40 Penicillins Allergy Anaphylaxis Verified 04/22/20 06:40 Review of Systems ROS Statement: Those systems with pertinent positive or pertinent negative responses have been documented in the HPI. ROS Other: All systems not noted in ROS Statement are negative. Constitutional: Denies: fever, chills Respiratory: Reports: dyspnea. Denies: cough, wheezes, hemoptysis Cardiovascular: Reports: orthopnea. Denies: chest pain, palpitations, edema, syncope Gastrointestinal: Denies: abdominal pain, nausea, vomiting, diarrhea Genitourinary: Reports: dysuria. 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 Last Myocardial Infarction Date:: 01-03-14 History of Any Multi-Drug Resistant Organisms: None Reported Past Surgical History: Heart Catheterization With Stent Additional Past Surgical History / Comment(s): d&c, stent RCA 01-07-14, stent LAD 02/14/2019 Past Anesthesia/Blood Transfusion Reactions: No Reported Reaction Date of Last Stent Placement:: 2013 Past Psychological History: No Psychological Hx Reported Smoking Status: Former smoker Past Alcohol Use History: None Reported Past Drug Use History: None Reported - Past Family History Father Family Medical History: Cancer, Diabetes Mellitus Additional Family Medical History / Comment(s): age 70 from lung cancer Mother Additional Family Medical History / Comment(s): age 83 emphysema General Exam General appearance: alert, anxious, in distress Head exam: Present: atraumatic, normocephalic Eye exam: Present: normal appearance. Absent: scleral icterus, conjunctival injection Neck exam: Present: normal inspection, full ROM. Absent: meningismus Respiratory exam: Present: respiratory distress, rales, accessory muscle use. Absent: normal lung sounds bilaterally, wheezes, rhonchi, stridor, decreased breath sounds, prolonged expiratory Cardiovascular Exam: Present: regular rate, normal rhythm, systolic murmur, gallop. Absent: diastolic murmur, rubs GI/Abdominal exam: Present: soft. Absent: distended, tenderness, guarding, rebound, rigid, mass Extremities exam: Present: normal inspection, normal capillary refill. Absent: pedal edema, calf tenderness Back exam: Present: normal inspection Neurological exam: Present: alert Skin exam: Present: warm, intact, normal color, diaphoretic Course Vital Signs 04/22/20 04/22/20 04/22/20 04:59 05:06 05:25 Temperature 101.3 F H Pulse Rate 80 73 73 Pulse Rate [ Pulse Oximetery ] Respiratory 20 18 18 Rate Blood Pressure 177/124 179/88 187/86 Blood Pressure [Left Arm Supine] O2 Sat by Pulse 93 L 99 99 Oximetry 04/22/20 04/22/20 04/22/20 05:32 05:38 05:39 Temperature Pulse Rate 76 78 Pulse Rate [ Pulse Oximetery ] Respiratory 18 18 18 Rate Blood Pressure 166/73 169/73 Blood Pressure [Left Arm Supine] O2 Sat by Pulse 99 99 Oximetry 04/22/20 04/22/20 04/22/20 05:45 06:00 06:01 Temperature Pulse Rate 73 73 75 Pulse Rate [ Pulse Oximetery ] Respiratory 18 18 26 H Rate Blood Pressure 159/70 149/62 149/62 Blood Pressure [Left Arm Supine] O2 Sat by Pulse 99 99 98 Oximetry 04/22/20 04/22/20 04/22/20 06:20 06:40 07:56 Temperature 99.8 F H Pulse Rate 70 69 65 Pulse Rate [ Pulse Oximetery ] Respiratory 28 H 27 H 16 Rate Blood Pressure 144/54 141/52 126/47 Blood Pressure [Left Arm Supine] O2 Sat by Pulse 99 99 99 Oximetry 04/22/20 04/22/20 04/22/20 08:10 08:21 08:38 Temperature 98.3 F 98.1 F Pulse Rate 64 67 Pulse Rate [ 64 Pulse Oximetery ] Respiratory 20 16 16 Rate Blood Pressure 137/53 134/52 Blood Pressure 120/56 [Left Arm Supine] O2 Sat by Pulse 100 99 99 Oximetry 04/22/20 04/22/20 04/22/20 09:39 10:51 11:19 Temperature Pulse Rate 64 62 64 Pulse Rate [ Pulse Oximetery ] Respiratory 16 16 18 Rate Blood Pressure 141/52 135/46 133/52 Blood Pressure [Left Arm Supine] O2 Sat by Pulse 100 100 100 Oximetry 04/22/20 12:59 Temperature 98.3 F Pulse Rate 65 Pulse Rate [ Pulse Oximetery ] Respiratory 18 Rate Blood Pressure 136/52 Blood Pressure [Left Arm Supine] O2 Sat by Pulse 99 Oximetry Medical Decision Making - Medical Decision Making Patient is 75-year-old woman presenting with severe dyspnea. Clinically patient appears to be in congestive heart failure. She is quite hypertensive. She has rales to the midlung [place]. On arrival patient placed on BiPAP, and she is given nitroglycerin infusion. I did also give 2 additional aliquots of 400 g each by the IV. I patient's blood pressure did come down and she began to feel better. In addition, patient has fever on arrival and there does appear to be right lower lobe infiltrate. Patient is given antibiotics here. Case discussed with . she will admits with consultation for cardiology. She did have echocardiogram last month. - Lab Data Result diagrams: 04/22/20 05:28 04/22/20 05:28 Lab Results 04/22/20 04/22/20 04/22/20 Range/Units 05:28 05:28 05:28 WBC 15.7 H (3.8-10.6) k/uL RBC 3.95 (3.80-5.40) m/uL Hgb 11.3 L (11.4-16.0) gm/dL Hct 34.9 (34.0-46.0) % MCV 88.3 (80.0-100.0) fL MCH 28.5 (25.0-35.0) pg MCHC 32.3 (31.0-37.0) g/dL RDW 15.2 (11.5-15.5) % Plt Count 127 L (150-450) k/uL MPV 10.2 Neutrophils % 74 % Lymphocytes % 14 % Monocytes % 9 % Eosinophils % 2 % Basophils % 0 % Neutrophils # 11.6 H (1.3-7.7) k/uL Lymphocytes # 2.2 (1.0-4.8) k/uL Monocytes # 1.4 H (0-1.0) k/uL Eosinophils # 0.3 (0-0.7) k/uL Basophils # 0.0 (0-0.2) k/uL PT 11.1 (9.0-12.0) sec INR 1.1 (<1.2) APTT 22.5 (22.0-30.0) sec Sodium 138 (137-145) mmol/L Potassium 4.3 (3.5-5.1) mmol/L Chloride 98 (98-107) mmol/L Carbon Dioxide 28 (22-30) mmol/L Anion Gap 12 mmol/L BUN 31 H (7-17) mg/dL Creatinine 1.57 H (0.52-1.04) mg/dL Est GFR (CKD-EPI)AfAm 36 (>60 ml/min/1.73 sqM) Est GFR (CKD-EPI)NonAf 32 (>60 ml/min/1.73 sqM) Glucose 285 H (74-99) mg/dL Plasma Lactic Acid Jona (0.7-2.0) mmol/L Calcium 9.3 (8.4-10.2) mg/dL Total Bilirubin 1.5 H (0.2-1.3) mg/dL AST 22 (14-36) U/L ALT 17 (4-34) U/L Alkaline Phosphatase 97 (38-126) U/L Troponin I (0.000-0.034) ng/mL NT-Pro-B Natriuret Pep pg/mL Total Protein 6.9 (6.3-8.2) g/dL Albumin 4.2 (3.5-5.0) g/dL Urine Color Urine Appearance (Clear) Urine pH (5.0-8.0) Ur Specific [place] (1.001-1.035) Urine Protein (Negative) Urine Glucose (UA) (Negative) Urine Ketones (Negative) Urine Blood (Negative) Urine Nitrite (Negative) Urine Bilirubin (Negative) Urine Urobilinogen (<2.0) mg/dL Ur Leukocyte Esterase (Negative) Urine RBC (0-5) /hpf Urine WBC (0-5) /hpf Ur Squamous Epith Cells (0-4) /hpf Amorphous Sediment (None) /hpf Urine Bacteria (None) /hpf Hyaline Casts (0-2) /lpf Urine Mucus (None) /hpf Coronavirus (PCR) (Not Detectd) 04/22/20 04/22/20 04/22/20 Range/Units 05:28 05:28 05:28 WBC (3.8-10.6) k/uL RBC (3.80-5.40) m/uL Hgb (11.4-16.0) gm/dL Hct (34.0-46.0) % MCV (80.0-100.0) fL MCH (25.0-35.0) pg MCHC (31.0-37.0) g/dL RDW (11.5-15.5) % Plt Count (150-450) k/uL MPV Neutrophils % % Lymphocytes % % Monocytes % % Eosinophils % % Basophils % % Neutrophils # (1.3-7.7) k/uL Lymphocytes # (1.0-4.8) k/uL Monocytes # (0-1.0) k/uL Eosinophils # (0-0.7) k/uL Basophils # (0-0.2) k/uL PT (9.0-12.0) sec INR (<1.2) APTT (22.0-30.0) sec Sodium (137-145) mmol/L Potassium (3.5-5.1) mmol/L Chloride (98-107) mmol/L Carbon Dioxide (22-30) mmol/L Anion Gap mmol/L BUN (7-17) mg/dL Creatinine (0.52-1.04) mg/dL Est GFR (CKD-EPI)AfAm (>60 ml/min/1.73 sqM) Est GFR (CKD-EPI)NonAf (>60 ml/min/1.73 sqM) Glucose (74-99) mg/dL Plasma Lactic Acid Jona 1.6 (0.7-2.0) mmol/L Calcium (8.4-10.2) mg/dL Total Bilirubin (0.2-1.3) mg/dL AST (14-36) U/L ALT (4-34) U/L Alkaline Phosphatase (38-126) U/L Troponin I <0.012 (0.000-0.034) ng/mL NT-Pro-B Natriuret Pep 5340 pg/mL Total Protein (6.3-8.2) g/dL Albumin (3.5-5.0) g/dL Urine Color Urine Appearance (Clear) Urine pH (5.0-8.0) Ur Specific [place] (1.001-1.035) Urine Protein (Negative) Urine Glucose (UA) (Negative) Urine Ketones (Negative) Urine Blood (Negative) Urine Nitrite (Negative) Urine Bilirubin (Negative) Urine Urobilinogen (<2.0) mg/dL Ur Leukocyte Esterase (Negative) Urine RBC (0-5) /hpf Urine WBC (0-5) /hpf Ur Squamous Epith Cells (0-4) /hpf Amorphous Sediment (None) /hpf Urine Bacteria (None) /hpf Hyaline Casts (0-2) /lpf Urine Mucus (None) /hpf Coronavirus (PCR) (Not Detectd) 04/22/20 04/22/20 Range/Units 05:28 05:33 WBC (3.8-10.6) k/uL RBC (3.80-5.40) m/uL Hgb (11.4-16.0) gm/dL Hct (34.0-46.0) % MCV (80.0-100.0) fL MCH (25.0-35.0) pg MCHC (31.0-37.0) g/dL RDW (11.5-15.5) % Plt Count (150-450) k/uL MPV Neutrophils % % Lymphocytes % % Monocytes % % Eosinophils % % Basophils % % Neutrophils # (1.3-7.7) k/uL Lymphocytes # (1.0-4.8) k/uL Monocytes # (0-1.0) k/uL Eosinophils # (0-0.7) k/uL Basophils # (0-0.2) k/uL PT (9.0-12.0) sec INR (<1.2) APTT (22.0-30.0) sec Sodium (137-145) mmol/L Potassium (3.5-5.1) mmol/L Chloride (98-107) mmol/L Carbon Dioxide (22-30) mmol/L Anion Gap mmol/L BUN (7-17) mg/dL Creatinine (0.52-1.04) mg/dL Est GFR (CKD-EPI)AfAm (>60 ml/min/1.73 sqM) Est GFR (CKD-EPI)NonAf (>60 ml/min/1.73 sqM) Glucose (74-99) mg/dL Plasma Lactic Acid Jona (0.7-2.0) mmol/L Calcium (8.4-10.2) mg/dL Total Bilirubin (0.2-1.3) mg/dL AST (14-36) U/L ALT (4-34) U/L Alkaline Phosphatase (38-126) U/L Troponin I (0.000-0.034) ng/mL NT-Pro-B Natriuret Pep pg/mL Total Protein (6.3-8.2) g/dL Albumin (3.5-5.0) g/dL Urine Color Yellow Urine Appearance Cloudy H (Clear) Urine pH 6.0 (5.0-8.0) Ur Specific [place] 1.010 (1.001-1.035) Urine Protein Negative (Negative) Urine Glucose (UA) Negative (Negative) Urine Ketones Negative (Negative) Urine Blood Large H (Negative) Urine Nitrite Negative (Negative) Urine Bilirubin Negative (Negative) Urine Urobilinogen <2.0 (<2.0) mg/dL Ur Leukocyte Esterase Moderate H (Negative) Urine RBC 3 (0-5) /hpf Urine WBC 6 H (0-5) /hpf Ur Squamous Epith Cells 2 (0-4) /hpf Amorphous Sediment Occasional H (None) /hpf Urine Bacteria Occasional H (None) /hpf Hyaline Casts 3 H (0-2) /lpf Urine Mucus Rare H (None) /hpf Coronavirus (PCR) Not Detected (Not Detectd) - EKG Data -: EKG Interpreted by Me EKG shows normal: sinus rhythm, axis (Normal), intervals (UT interval 178 ms, QTC 465 ms, both normal. QRS duration 150 ms prolonged consistent with a left bundle-branch block.), QRS complexes ((Bundle-branch block.) Rate: normal (Rate 83 bpm) Critical Care Time Critical Care Time: Yes (35 minutes) Disposition Clinical Impression: Congestive heart failure, Fever Narrative: Suspect pneumonia Disposition: ADMITTED IP TO THIS HOSP Condition: Serious
[2020-04-22] MEDS ORDERED: FUROSEMIDE 10 MG/ML 4 ML VIAL IV STA (05:45)
--- NOTE | 2020-04-22 05:57 | XR ---
EXAM: XR Chest, 1 View CLINICAL HISTORY: dyspnea TECHNIQUE: Frontal view of the chest. COMPARISON: 03/30/2020. FINDINGS: Lungs: Right basilar atelectasis and/or infiltrates with suspected tiny right pleural effusion. Pleural space: See above. Heart: Unremarkable. No cardiomegaly. Mediastinum: Unremarkable. Bones/joints: Unremarkable. IMPRESSION: Right basilar atelectasis and/or infiltrates with suspected tiny right pleural effusion. PA and lateral views of the chest recommended for further evaluation.
[2020-04-22 06:08] LABS: Basophils % (A) 0 %; Eosinophils # (A) 0.3 k/uL (0-0.7); Eosinophils % (A) 2 %; HCT 34.9 % (34.0-46.0); HGB 11.3 gm/dL (11.4-16.0); Lymphocytes # (A) 2.2 k/uL (1.0-4.8); Lymphocytes % (A) 14 %; MCH 28.5 pg (25.0-35.0); MCHC 32.3 g/dL (31.0-37.0); MCV 88.3 fL (80.0-100.0); Mean Platelet Volume 10.2; Monocytes # (A) 1.4 k/uL (0-1.0); Monocytes % (A) 9 %; Neutrophils # (A) 11.6 k/uL (1.3-7.7); Neutrophils % (A) 74 %; Platelet Count 127 k/uL (150-450); RBC 3.95 m/uL (3.80-5.40); RDW 15.2 % (11.5-15.5); WBC 15.7 k/uL (3.8-10.6)
[2020-04-22 06:26] LABS: INR 1.1 (<1.2); Partial Thromboplastin Time 22.5 sec (22.0-30.0); Prothrombin Time 11.1 sec (9.0-12.0)
[2020-04-22 06:27] LABS: Albumin 4.2 g/dL (3.5-5.0); Calcium 9.3 mg/dL (8.4-10.2); Potassium 4.3 mmol/L (3.5-5.1); Total Bilirubin 1.5 mg/dL (0.2-1.3); Total Protein 6.9 g/dL (6.3-8.2)
[2020-04-22 07:38] LABS: Amorphous Sediment,Urine Occasional /hpf; Appearance,Urine Cloudy (Clear); Bacteria,Urine Occasional /hpf; Bilirubin,Urine Negative (Negative); Blood,Urine Large (Negative); Color,Urine Yellow; Glucose,Urine (UA) Negative (Negative); Hyaline Casts,Urine 3 /lpf (0-2); Ketones,Urine Negative (Negative); Leukocyte Esterase,Urine Moderate (Negative); Mucus,Urine Rare /hpf; Nitrite,Urine Negative (Negative); Protein,Urine Negative (Negative); RBC,Urine 3 /hpf (0-5); Squamous Epithelial Cell,Urine 2 /hpf (0-4); Urobilinogen,Urine <2.0 mg/dL (<2.0); WBC,Urine 6 /hpf (0-5)
[2020-04-22] MEDS ORDERED: FUROSEMIDE 10 MG/ML 4 ML VIAL IV SCH (08:00)
[2020-04-22] MEDS ORDERED: glipiZIDE 10 MG TAB PO SCH (09:00)
[2020-04-22] MEDS ORDERED: cefTRIAXone IN SWFI 1,000 MG/10 ML SYRINGE IVP SCH (09:00)
[2020-04-22] MEDS ORDERED: HEPARIN SODIUM,PORCINE 5,000 UNIT/ML 1 ML VIAL SQ SCH (09:00)
[2020-04-22] MEDS ORDERED: AZITHROMYCIN 500 MG TAB PO SCH (09:00)
[2020-04-22] MEDS: CHOLECALCIFEROL 25 MCG (1000 IU) TABLET PO SCH (09:36)
[2020-04-22] MEDS: FERROUS SULFATE 325 MG TAB PO SCH (09:37)
[2020-04-22] MEDS: APIXABAN 5 MG TAB PO SCH ×2 (09:37→21:47)
[2020-04-22] MEDS: AMIODARONE 200 MG TAB PO SCH ×2 (09:37→21:47)
[2020-04-22] MEDS: lisinopriL 20 MG TAB PO SCH (09:37)
[2020-04-22] MEDS: ASPIRIN 81 MG PO SCH (09:38)
[2020-04-22] MEDS: NITROGLYCERIN OINT 1 INCH/GM PACKET TOPICAL SCH ×2 (10:52→17:10)
--- NOTE | 2020-04-22 11:18 | CONS ---
CONSULTATION CHIEF COMPLAINT: Shortness of breath. Vicky is a 75-year-old lady with history of paroxysmal atrial fibrillation, known coronary artery disease, status post angioplasty of right coronary artery in mid LAD, ischemic cardiomyopathy, who presented to hospital with symptoms of congestive heart failure. She states that she has gradually developed worsening shortness of breath over the last few days and leg edema. She had been treated with intravenous diuretics in the emergency room with which her symptoms have improved. A recent echocardiogram on her showed an ejection fraction of 35% to 40% with moderate to severe mitral regurgitation, moderate to severe tricuspid regurgitation and severe pulmonary hypertension. At the time of my evaluation, patient appears comfortable at rest. Remains in sinus rhythm with left bundle branch block. A chest x-ray showed right basilar atelectasis without any evidence of congestive heart failure. The BNP is elevated at 5340. BUN is 31, creatinine is 1.5. She has evidence of urinary tract infection and the coronavirus is negative. The white cell count is elevated at 15.7. She is currently on IV antibiotics, amiodarone, intravenous diuretics. The patient's clinical presentation is consistent with acute exacerbation of chronic systolic heart failure. PAST MEDICAL HISTORY: Significant for coronary artery disease, status post multivessel angioplasty, ischemic cardiomyopathy, chronic systolic heart failure. MEDICATIONS: Medications include amiodarone 200 b.i.d., Eliquis 5 b.i.d., aspirin, ceftriaxone, iron, Lasix 40 b.i.d., Glucotrol 10 b.i.d., Zestril 20 daily and Lopressor 50 b.i.d. ALLERGIES: Patient has multiple allergies. They are documented and I reviewed them. FAMILY HISTORY: Negative for premature coronary artery disease. SOCIAL HISTORY: Negative for current smoking, EtOH abuse, or drug abuse. REVIEW OF SYSTEMS: HEENT is unremarkable. CARDIAC: As described above. RESPIRATORY: As described above. GI: Negative. GENITOURINARY: Negative. ALLERGY/IMMUNOLOGY: Negative. SKIN: Negative. MUSCULOSKELETAL: Significant for arthritis. PSYCHOSOCIAL: Negative. ENDOCRINE: Negative. DERM: Negative. CONSTITUTIONAL: Negative. ONCOLOGICAL: Negative. Rest of the system review is not relevant. PHYSICAL EXAMINATION: On exam, patient is comfortable at rest. Vital signs are stable. Chest exam reveals good air entry bilaterally. Heart exam reveals first and second heart sounds. Systolic murmur at the apex. Abdomen is soft. Examination of extremities did not reveal any edema. Peripheral pulses are felt. ASSESSMENT: 1. Acute exacerbation of chronic systolic heart failure. 2. Urinary tract infection. 3. Paroxysmal atrial fibrillation. 4. Coronary artery disease, status post multivessel angioplasty. PLAN: I will continue the patient on IV diuretics. Stop the IV nitro, start her on nitroglycerin paste 1 inch t.i.d. I am going to discuss with the patient about doing a transesophageal echo to evaluate the mitral regurgitation. MMODL / IJN: [id number] /
[2020-04-22 13:36] VITALS: BMI 27.3
[2020-04-22 16:51] LABS: Glucose,Whole Blood 272 mg/dL (75-99)
[2020-04-22] MEDS: FLUCONAZOLE 100 MG TAB PO SCH (17:09)
[2020-04-22] MEDS: METOPROLOL TARTRATE 50 MG TAB PO SCH (17:10)
[2020-04-22] MEDS: FUROSEMIDE 10 MG/ML 4 ML VIAL IV SCH (17:10)
[2020-04-22] MEDS: glipiZIDE 10 MG TAB PO SCH (17:13)
--- NOTE | 2020-04-22 21:24 | P.HPIM ---
History of Present Illness H&P Date: 04/22/20 Chief Complaint: Shortness of breath This is history and physical on a 75-year-old white female who was recently discharged for atrial fibrillation. She woke up this morning she is bathroom and became significantly more short of breath. Dyspnea was her main complaint today. Chest x-ray shows possible pneumonia with basal atelectasis. She is also come in today with significant hypertensive urgency. Due to her symptomatology, she is appropriately admitted. Covid testing is negative at this time. Review of Systems Constitutional: Denies chills, Denies fever Eyes: denies blurred vision, denies pain Ears, nose, mouth and throat: Denies headache, Denies sore throat Cardiovascular: Reports as per HPI, Reports dyspnea on exertion, Reports shortness of breath Respiratory: Denies cough Genitourinary: Denies dysuria, Denies hematuria Past Medical History Past Medical History: Atrial Fibrillation, Chest Pain / Angina, Diabetes Mellitus, Hypertension, Myocardial Infarction (PA), Osteoarthritis (OA), Pneumonia Additional Past Medical History / Comment(s): arthritis, 01-03-14 cardiac arrest/resp failure/mi post intubation came 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 Last Myocardial Infarction Date:: 01-03-14 History of Any Multi-Drug Resistant Organisms: None Reported Past Surgical History: Heart Catheterization With Stent Additional Past Surgical History / Comment(s): d&c, stent RCA 01-07-14, stent LAD 02/14/2019 Past Anesthesia/Blood Transfusion Reactions: No Reported Reaction Date of Last Stent Placement:: 2013 Past Psychological History: No Psychological Hx Reported Smoking Status: Former smoker Past Alcohol Use History: None Reported Past Drug Use History: None Reported - Past Family History Father Family Medical History: Cancer, Diabetes Mellitus Additional Family Medical History / Comment(s): age 70 from lung cancer Mother Additional Family Medical History / Comment(s): age 83 emphysema Medications and Allergies Home Medications Medication Instructions Recorded Confirmed Type glipiZIDE [Glipizide ER] 10 mg PO BID 01/08/14 04/22/20 History Ferrous Sulfate [Iron (65 MG 325 mg PO DAILY 02/12/19 04/22/20 History Elemental)] Aspirin 81 mg PO DAILY #30 chew 07/01/19 04/22/20 Rx Furosemide [Lasix] 40 mg PO BID #60 tab 07/01/19 04/22/20 Rx Ascorbic Acid [Vitamin C] 500 mg PO DAILY 03/25/20 04/22/20 History Enalapril Maleate [Vasotec] 5 mg PO BID 03/25/20 04/22/20 History L.acidoph,Paracasei, B.lactis 1 tab PO DAILY 03/25/20 04/22/20 History [Probiotic] Metoprolol Tartrate [Lopressor] 50 mg PO AC-BID 03/25/20 04/22/20 History Vitamin B Complex 1 cap PO DAILY 03/25/20 04/22/20 History Apixaban [Eliquis] 5 mg PO BID #60 tab 03/28/20 04/22/20 Rx Cholecalciferol [Vitamin D3 (25 50 mcg PO DAILY 04/14/20 04/22/20 History Mcg = 1000 Iu)] Amiodarone [Cordarone] 200 mg PO BID 04/22/20 04/22/20 History Allergies Allergy/AdvReac Type Severity Reaction Status Date / Time Corticosteroids Allergy Unknown Unknown Verified 04/22/20 06:40 (Glucocorticoids) azithromycin [From Zithromax] Allergy Anaphylaxis Verified 04/22/20 06:40 banana Allergy Unknown Verified 04/22/20 06:40 carisoprodol [From Soma] Allergy Unknown Verified 04/22/20 06:40 ciprofloxacin [From Cipro] Allergy Unknown Verified 04/22/20 06:40 cortisone [Cortisone] Allergy Unknown Verified 04/22/20 06:40 cyclobenzaprine HCl Allergy Unknown Verified 04/22/20 06:40 [From Flexeril] egg Allergy Unknown Verified 04/22/20 06:40 latex Allergy Unknown Verified 04/22/20 06:40 Latex, Natural Rubber Allergy Unknown Verified 04/22/20 06:40 levofloxacin [From Levaquin] Allergy Anaphylaxis Verified 04/22/20 06:40 Penicillins Allergy Anaphylaxis Verified 04/22/20 06:40 Physical Exam Vitals: Vital Signs Temp Pulse Resp BP Pulse Ox 04/22/20 08:21 64 16 137/53 99 04/22/20 07:56 65 16 126/47 99 04/22/20 06:40 69 27 H 141/52 99 04/22/20 06:20 99.8 F H 70 28 H 144/54 99 04/22/20 06:01 75 26 H 149/62 98 04/22/20 06:00 73 18 149/62 99 04/22/20 05:45 73 18 159/70 99 04/22/20 05:39 78 18 169/73 99 04/22/20 05:38 18 04/22/20 05:32 76 18 166/73 99 04/22/20 05:25 73 18 187/86 99 04/22/20 05:06 73 18 179/88 99 04/22/20 04:59 101.3 F H 80 20 177/124 93 L Intake and Output 04/21/20 04/22/20 04/22/20 22:59 06:59 14:59 Intake Total 1.7 13.4 Balance 1.7 13.4 Intake: Intake, IV Titration 1.7 13.4 Amount Nitroglycerin-D5w Pmx 50 1.7 13.4 mg In Dextrose/Water 1 250ml.bag @ 20 MCG/MIN 6 mls/hr IV .Q24H ONE Rx#: [id number] Other: Weight 81.647 kg Results CBC & Chem 7: 04/22/20 05:28 04/22/20 05:28 Labs: Abnormal Lab Results - Last 24 Hours (Table) 04/22/20 04/22/20 04/22/20 Range/Units 05:28 05:28 05:28 WBC 15.7 H (3.8-10.6) k/uL Hgb 11.3 L (11.4-16.0) gm/dL Plt Count 127 L (150-450) k/uL Neutrophils # 11.6 H (1.3-7.7) k/uL Monocytes # 1.4 H (0-1.0) k/uL BUN 31 H (7-17) mg/dL Creatinine 1.57 H (0.52-1.04) mg/dL Glucose 285 H (74-99) mg/dL Total Bilirubin 1.5 H (0.2-1.3) mg/dL Urine Appearance Cloudy H (Clear) Urine Blood Large H (Negative) Ur Leukocyte Esterase Moderate H (Negative) Urine WBC 6 H (0-5) /hpf Amorphous Sediment Occasional H (None) /hpf Urine Bacteria Occasional H (None) /hpf Hyaline Casts 3 H (0-2) /lpf Urine Mucus Rare H (None) /hpf Assessment and Plan (1) Atrial fibrillation Current Visit: Yes Status: Acute Code(s): I48.91 - UNSPECIFIED ATRIAL FIBRILLATION SNOMED Code(s): 54628291 (2) UTI (urinary tract infection) Current Visit: Yes Status: Acute Code(s): N39.0 - URINARY TRACT INFECTION, SITE NOT SPECIFIED SNOMED Code(s): 66887077 (3) Community acquired pneumonia Current Visit: No Status: Acute Code(s): J18.9 - PNEUMONIA, UNSPECIFIED ORGANISM SNOMED Code(s): 548848290 Plan: Consult cardiology. Check CBC and CMP in a.m. Urine culture and sensitivity. Empiric anabiotic therapy. Sliding scale for blood sugar. See orders otherwise. Prognosis is guarded Time with Patient: Greater than 30
[2020-04-23] MEDS: NITROGLYCERIN OINT 1 INCH/GM PACKET TOPICAL SCH ×2 (00:13→10:24)
[2020-04-23] MEDS: FUROSEMIDE 10 MG/ML 4 ML VIAL IV SCH ×2 (06:50→18:58)
[2020-04-23] MEDS: METOPROLOL TARTRATE 50 MG TAB PO SCH ×2 (07:06→16:37)
[2020-04-23 07:11] LABS: Glucose,Whole Blood 203 mg/dL (75-99)
[2020-04-23] MEDS: glipiZIDE 10 MG TAB PO SCH ×2 (07:36→16:37)
--- NOTE | 2020-04-23 09:55 | P.PN ---
Subjective Progress Note Date: 04/23/20 Principal diagnosis: Improving shortness of breath The patient is centimeter for UTI and CHF. The patient is improving. We will try to increase ambulation today. No significant nausea or vomiting. No fever or chills are stated. Objective - Vital Signs Vital signs: Vital Signs Temp 97.6 F 04/23/20 03:59 Pulse 67 04/23/20 03:59 Resp 18 04/23/20 03:59 BP 122/45 04/23/20 03:59 Pulse Ox 94 L 04/23/20 03:59 Intake & Output 04/22/20 04/23/20 04/23/20 18:59 06:59 18:59 Intake Total 253.4 240 Output Total 300 Balance 253.4 -300 240 Weight 81.647 kg 81.6 kg Intake: Intake, IV Titration 13.4 Amount Nitroglycerin-D5w Pmx 50 13.4 mg In Dextrose/Water 1 250ml.bag @ 20 MCG/MIN 6 mls/hr IV .Q24H ONE Rx#: [id number] Oral 240 240 Output: Urine 300 Other: Voiding Method Toilet Toilet # Voids 3 # Bowel Movements 1 - Constitutional General appearance: Present: average body habitus, cooperative - EENT Eyes: Absent: abnormal pupil - Respiratory Respiratory: bilateral: diminished - Gastrointestinal General gastrointestinal: Present: soft. Absent: tenderness - Psychiatric Psychiatric: Present: A&O x's 3 - Labs CBC & Chem 7: 04/22/20 05:28 04/22/20 05:28 Labs: Abnormal Lab Results - Last 24 Hours (Table) 04/22/20 04/23/20 Range/Units 16:40 07:09 POC Glucose (mg/dL) 272 H 203 H (75-99) mg/dL Microbiology - Last 24 Hours (Table) 04/22/20 05:28 Blood Culture - Preliminary Blood No Growth after 24 hours 04/22/20 05:35 Blood Culture - Preliminary Blood No Growth after 24 hours 04/22/20 16:46 Urine Culture - Preliminary Urine,Clean Catch Assessment and Plan (1) Atrial fibrillation Current Visit: Yes Status: Acute Code(s): I48.91 - UNSPECIFIED ATRIAL FIBRILLATION SNOMED Code(s): 97160096 (2) UTI (urinary tract infection) Current Visit: Yes Status: Acute Code(s): N39.0 - URINARY TRACT INFECTION, SITE NOT SPECIFIED SNOMED Code(s): 36813867 (3) Community acquired pneumonia Current Visit: No Status: Acute Code(s): J18.9 - PNEUMONIA, UNSPECIFIED ORGANISM SNOMED Code(s): 439535569 Plan: Continue diuresis. Check CBC and CMP in a.m. Continue Rocephin for antibiotic The patient is clinically improved. We will continue to follow with cardiology. Appreciate their input.
--- NOTE | 2020-04-23 10:18 | ECHOF ---
Referral Reason:LV function MEASUREMENTS -------- HEIGHT: 172.7 cm WEIGHT: 81.6 kg BP: 141/52 IVSd: 1.3 cm (0.6 - 1.1) LVIDd: 4.5 cm (3.9 - 5.3) LVPWd: 1.6 cm (0.6 - 1.1) IVSs: 1.6 cm LVIDs: 3.5 cm LVPWs: 1.8 cm FINDINGS -------- Sinus rhythm. Limited Study The left ventricular size is normal. There is mild concentric left ventricular hypertrophy. Overa ll left ventricular systolic function is mild-moderately impaired with, an EF between 40 - 45 %. Hxddalfx-aq-kzrelt mitral regurgitation is present. CONCLUSIONS -------- 1. There is mild concentric left ventricular hypertrophy. 2. Overall left ventricular systolic function is mild-moderately impaired with, an EF between 40 - 45 %. 3. Dtkyivfu-cl-zwxvng mitral regurgitation is present. PSYCHIATRIC AIDE INSTRUCTOR: Nenita Herrera RDCS
[2020-04-23] MEDS: AMIODARONE 200 MG TAB PO SCH ×2 (10:22→20:07)
[2020-04-23] MEDS: APIXABAN 5 MG TAB PO SCH ×2 (10:22→20:07)
[2020-04-23] MEDS: FLUCONAZOLE 100 MG TAB PO SCH (10:22)
[2020-04-23] MEDS: ASPIRIN 81 MG PO SCH (10:22)
[2020-04-23] MEDS: lisinopriL 20 MG TAB PO SCH (10:23)
[2020-04-23] MEDS: CHOLECALCIFEROL 25 MCG (1000 IU) TABLET PO SCH (10:23)
[2020-04-23] MEDS: FERROUS SULFATE 325 MG TAB PO SCH (10:34)
[2020-04-23 11:13] LABS: Albumin 3.3 g/dL (3.5-5.0); Calcium 8.9 mg/dL (8.4-10.2); Potassium 3.4 mmol/L (3.5-5.1); Total Bilirubin 1.7 mg/dL (0.2-1.3); Total Protein 5.7 g/dL (6.3-8.2)
[2020-04-23 11:34] LABS: HCT 27.9 % (34.0-46.0); MCV 87.9 fL (80.0-100.0); Mean Platelet Volume 10.3; RBC 3.17 m/uL (3.80-5.40); WBC 6.4 k/uL (3.8-10.6)
[2020-04-23 11:40] LABS: HGB 9.2 gm/dL (11.4-16.0)
[2020-04-23 12:19] LABS: Platelet Count 86 k/uL (150-450)
--- NOTE | 2020-04-23 15:25 | P.PN ---
Subjective Progress Note Date: 04/23/20 HISTORY OF PRESENT ILLNESS: 75-year-old female who is admitted to the hospital secondary to congestive heart failure. Patient examined this morning at the bedside. She denies chest pain or pressure. She states her shortness of breath is improving. Fluid balance over the last 24 hours is -46 mL. She remains on IV Lasix 40 mg every 12 hours. Creatinine 1.33 today. Echocardiogram completed revealed ejection fraction 40-45% and moderate to severe mitral regurgitation. PHYSICAL EXAM: VITAL SIGNS: Reviewed. GENERAL: Well-developed in no acute distress. NECK: Supple. No JVD or thyromegaly LUNGS: Respirations even and unlabored. Lungs diminished bilaterally. HEART: Regular rate and rhythm. S1 and S2 heard. Systolic murmur noted EXTREMITIES: Normal range of motion. No clubbing or cyanosis. Peripheral pulses intact. No lower extremity edema ASSESSMENT: Urinary tract infection Acute exacerbation of chronic systolic heart failure, EF 40-45% Paroxysmal atrial fibrillation, currently maintaining sinus mechanism, on anticoagulation with Eliquis Coronary artery disease with previous PCI to mid LAD and RCA PLAN: Discontinue Nitropaste Continue IV Lasix for today. Will transition to oral dosing tomorrow Continue additional cardiac medications Dr. Chavez discussed TE with patient who declined having procedure performed Anticipate discharge home tomorrow Nurse practitioner note has been reviewed by physician. Signing provider agrees with the documented findings, assessment, and plan of care. Objective - Vital Signs Vital signs: Vital Signs Temp 98.1 F 04/23/20 08:00 Pulse 63 04/23/20 08:00 Resp 18 04/23/20 08:00 BP 134/52 04/23/20 08:00 Pulse Ox 98 04/23/20 08:00 Intake & Output 04/22/20 04/23/20 04/23/20 18:59 06:59 18:59 Intake Total 253.4 240 Output Total 300 700 Balance 253.4 -300 -460 Weight 81.647 kg 81.6 kg Intake: Intake, IV Titration 13.4 Amount Nitroglycerin-D5w Pmx 50 13.4 mg In Dextrose/Water 1 250ml.bag @ 20 MCG/MIN 6 mls/hr IV .Q24H ONE Rx#: [id number] Oral 240 240 Output: Urine 300 700 Other: Voiding Method Toilet Toilet Toilet # Voids 3 1 # Bowel Movements 1 - Labs CBC & Chem 7: 04/23/20 09:51 04/23/20 09:51 Labs: Abnormal Lab Results - Last 24 Hours (Table) 04/22/20 04/23/20 04/23/20 Range/Units 16:40 07:09 09:51 RBC 3.17 L (3.80-5.40) m/uL Hgb 9.2 L D (11.4-16.0) gm/dL Hct 27.9 L (34.0-46.0) % Plt Count 86 L (150-450) k/uL Potassium (3.5-5.1) mmol/L BUN (7-17) mg/dL Creatinine (0.52-1.04) mg/dL Glucose (74-99) mg/dL POC Glucose (mg/dL) 272 H 203 H (75-99) mg/dL Total Bilirubin (0.2-1.3) mg/dL Total Protein (6.3-8.2) g/dL Albumin (3.5-5.0) g/dL 04/23/20 Range/Units 09:51 RBC (3.80-5.40) m/uL Hgb (11.4-16.0) gm/dL Hct (34.0-46.0) % Plt Count (150-450) k/uL Potassium 3.4 L (3.5-5.1) mmol/L BUN 36 H (7-17) mg/dL Creatinine 1.33 H (0.52-1.04) mg/dL Glucose 304 H (74-99) mg/dL POC Glucose (mg/dL) (75-99) mg/dL Total Bilirubin 1.7 H (0.2-1.3) mg/dL Total Protein 5.7 L (6.3-8.2) g/dL Albumin 3.3 L (3.5-5.0) g/dL Microbiology - Last 24 Hours (Table) 04/22/20 05:28 Blood Culture - Preliminary Blood No Growth after 24 hours 04/22/20 05:35 Blood Culture - Preliminary Blood No Growth after 24 hours 04/22/20 16:46 Urine Culture - Preliminary Urine,Clean Catch
[2020-04-23] MEDS ORDERED: Potassium Replacement Protocol 1 EACH MISC MISCELLANE PRN (19:25)
[2020-04-23] MEDS: POTASSIUM CHLORIDE ER 20 MEQ TAB.ER PO SCH ×2 (20:07→21:44)
[2020-04-23 20:38] LABS: Glucose,Whole Blood 294 mg/dL (75-99)
[2020-04-23] MEDS: INSULIN ASPART (NovoLOG) 100 UNIT/ML VIAL SQ SCH (21:44)
[2020-04-24 01:47] LABS: Glucose,Whole Blood 145 mg/dL (75-99)
[2020-04-24] MEDS ORDERED: DILTIAZEM DRIP BOLUS FROM BAG 1 MG SOLN IV ONE (03:25)
[2020-04-24] MEDS: DILTIAZEM 125 MG in SODIUM CHLORIDE 0.9% 100 ML IV SCH ×2 (03:38→15:59)
[2020-04-24 06:21] LABS: Glucose,Whole Blood 228 mg/dL (75-99)
[2020-04-24] MEDS: INSULIN ASPART (NovoLOG) 100 UNIT/ML VIAL SQ SCH ×4 (06:36→21:58)
[2020-04-24] MEDS: glipiZIDE 10 MG TAB PO SCH ×2 (06:36→17:32)
[2020-04-24] MEDS: METOPROLOL TARTRATE 50 MG TAB PO SCH (06:36)
[2020-04-24] MEDS: FUROSEMIDE 10 MG/ML 4 ML VIAL IV SCH (06:36)
--- NOTE | 2020-04-24 08:05 | P.PN ---
Subjective Principal diagnosis: Improving shortness of breath. The patient is centimeter for UTI and CHF. The patient is improving. We will try to increase ambulation today. No significant nausea or vomiting. No fever or chills are stated. The patient however converted back to H fibrillation rapid ventricular response. I spent some time explaining to her why this happened. Objective - Vital Signs Vital signs: Vital Signs Temp 98.9 F 04/24/20 04:00 Pulse 136 H 04/24/20 04:00 Resp 20 04/24/20 04:00 BP 129/69 04/24/20 04:00 Pulse Ox 94 L 04/24/20 04:00 Intake & Output 04/23/20 04/24/20 04/24/20 18:59 06:59 18:59 Intake Total 720 Output Total 1000 900 Balance -280 -900 Weight 80.4 kg Intake: Oral 720 Output: Urine 1000 900 Other: Voiding Method Toilet Toilet # Voids 1 - Constitutional General appearance: Present: average body habitus - EENT Eyes: Absent: abnormal pupil - Neck Neck: Absent: lymphadenopathy - Respiratory Respiratory: bilateral: diminished - Cardiovascular Rhythm: irregularly irregular Heart sounds: normal: S1, S2 Abnormal Heart Sounds: Absent: S3 Gallop - Gastrointestinal General gastrointestinal: Present: soft. Absent: tenderness - Psychiatric Psychiatric: Present: A&O x's 3 - Labs CBC & Chem 7: 04/23/20 09:51 04/23/20 09:51 Labs: Abnormal Lab Results - Last 24 Hours (Table) 04/23/20 04/23/20 04/23/20 Range/Units 09:51 09:51 20:35 RBC 3.17 L (3.80-5.40) m/uL Hgb 9.2 L D (11.4-16.0) gm/dL Hct 27.9 L (34.0-46.0) % Plt Count 86 L (150-450) k/uL Potassium 3.4 L (3.5-5.1) mmol/L BUN 36 H (7-17) mg/dL Creatinine 1.33 H (0.52-1.04) mg/dL Glucose 304 H (74-99) mg/dL POC Glucose (mg/dL) 294 H (75-99) mg/dL Total Bilirubin 1.7 H (0.2-1.3) mg/dL Total Protein 5.7 L (6.3-8.2) g/dL Albumin 3.3 L (3.5-5.0) g/dL 04/24/20 04/24/20 Range/Units 01:44 06:18 RBC (3.80-5.40) m/uL Hgb (11.4-16.0) gm/dL Hct (34.0-46.0) % Plt Count (150-450) k/uL Potassium (3.5-5.1) mmol/L BUN (7-17) mg/dL Creatinine (0.52-1.04) mg/dL Glucose (74-99) mg/dL POC Glucose (mg/dL) 145 H 228 H (75-99) mg/dL Total Bilirubin (0.2-1.3) mg/dL Total Protein (6.3-8.2) g/dL Albumin (3.5-5.0) g/dL Microbiology - Last 24 Hours (Table) 04/22/20 05:28 Blood Culture - Preliminary Blood No Growth after 48 hours 04/22/20 05:35 Blood Culture - Preliminary Blood No Growth after 48 hours 04/22/20 16:46 Urine Culture - Preliminary Urine,Clean Catch Group D Enterococcus Assessment and Plan (1) Atrial fibrillation Current Visit: Yes Status: Acute Code(s): I48.91 - UNSPECIFIED ATRIAL FIBRILLATION SNOMED Code(s): 38405301 (2) UTI (urinary tract infection) Current Visit: Yes Status: Acute Code(s): N39.0 - URINARY TRACT INFECTION, SITE NOT SPECIFIED SNOMED Code(s): 20134495 (3) Community acquired pneumonia Current Visit: No Status: Acute Code(s): J18.9 - PNEUMONIA, UNSPECIFIED ORGANISM SNOMED Code(s): 100963578 Plan: Continue diuresis. Check CBC and CMP in a.m. Continue Rocephin for antibiotic. We will check stool guaiac.
[2020-04-24] MEDS: APIXABAN 5 MG TAB PO SCH ×3 (08:42→21:57)
[2020-04-24] MEDS: FLUCONAZOLE 100 MG TAB PO SCH (08:42)
[2020-04-24] MEDS: AMIODARONE 200 MG TAB PO SCH ×2 (08:42→21:57)
[2020-04-24] MEDS: FERROUS SULFATE 325 MG TAB PO SCH (08:43)
[2020-04-24] MEDS: CHOLECALCIFEROL 25 MCG (1000 IU) TABLET PO SCH (08:43)
[2020-04-24] MEDS ORDERED: METOPROLOL TARTRATE 25 MG TAB PO STA (09:57)
--- NOTE | 2020-04-24 10:18 | CDI ---
Documentation Clarification Form Date: 04/24/2020 10:15:06 AM From: Rachael Acuna RN, CCDS Admit Date: 04/22/2020 07:47:00 AM Patient Name: Vicky Nixon V Visit Number: [id number] ATTENTION: The Clinical Documentation Specialists (CDI) and [facility] Coding Staff appreciate your assistance in clarifying documentation. Please respond to the clarification below the line at the bottom and electronically sign. The CDI & [facility] Coding staff will review the response and follow-up if needed. Please note: Queries are made part of the Legal Health Record. If you have any questions, please contact the author of this message via ITS. Dr. Last Barrios The patient is noted to have and elevated BUN and creatinine and a decreased GFR in the setting of acute on chronic systolic CHF. Please provide clinical significance of the abnormal lab values. History/Risk Factors: 03/31/2020 Patients baseline BUN/CR/GFR: 57/1.3/40 UTI, Acute on chronic systolic CHF, paroxysmal A-Fib, DM2, MA, Cardiac arrest Clinical Indicators: 04/22-04/24 Current BUN: 31/36 Cr: 1.57/1.33 GFR: 32/39 Treatment: Lasix 40 mg IVP Q 12 hrs. No IVF ordered In order to capture the severity of condition, please clarify if the condition signifies: Acute renal failure, Please specify etiology (if known): Cortical Necrosis Medullary Necrosis Tubular Necrosis Acute kidney injury Acute on chronic renal failure CKD Stage 1 GFR >90 CKD Stage 2 GFR 60-89 CKD Stage 3 GFR 30-59-This is the correct diagnosis CKD Stage 4 GFR 15-29 CKD Stage 5 GFR <15 Chronic renal failure/Chronic Kidney disease (CKD) please stage (if known): CKD Stage 1 GFR >90 CKD Stage 2 GFR 60-89 CKD Stage 3 GFR 30-59, this is the correct diagnosis CKD Stage 4 GFR 15-29 CKD Stage 5 GFR <15 ESRD Other, please specify Unable to determine (Last Revision: June 2017) MTDD
[2020-04-24] MEDS: lisinopriL 20 MG TAB PO SCH (11:12)
[2020-04-24 12:18] LABS: Glucose,Whole Blood 294 mg/dL (75-99)
[2020-04-24 12:22] LABS: Albumin 3.6 g/dL (3.5-5.0); Potassium 3.9 mmol/L (3.5-5.1); Total Protein 6.3 g/dL (6.3-8.2)
[2020-04-24 12:29] LABS: Total Bilirubin 1.8 mg/dL (0.2-1.3)
[2020-04-24] MEDS: ASPIRIN 81 MG PO SCH (12:33)
[2020-04-24] MEDS: PHENAZOPYRIDINE 200 MG TAB PO SCH ×2 (12:48→21:58)
--- NOTE | 2020-04-24 12:51 | P.PN ---
Subjective Progress Note Date: 04/24/20 HISTORY OF PRESENT ILLNESS: 04/23/2020 75-year-old female who is admitted to the hospital secondary to congestive heart failure. Patient examined this morning at the bedside. She denies chest pain or pressure. She states her shortness of breath is improving. Fluid balance over the last 24 hours is -46 mL. She remains on IV Lasix 40 mg every 12 hours. Creatinine 1.33 today. Echocardiogram completed revealed ejection fraction 40- 45% and moderate to severe mitral regurgitation. 04/24/2020 Patient examined this morning at the bedside. Patient went into A. fib with RVR yesterday. She was started on a Cardizem drip which is currently at 10 mg an hour. She remains in atrial fibrillation with a heart rate ranging between 90 and 110. She remains on IV Lasix 40 mg every 12 hours. Fluid balance for the last 24 hours is -1180 mL. PHYSICAL EXAM: VITAL SIGNS: Reviewed. GENERAL: Well-developed in no acute distress. NECK: Supple. No JVD or thyromegaly LUNGS: Respirations even and unlabored. Lungs diminished bilaterally. HEART: Irregular rate and rhythm. S1 and S2 heard. Systolic murmur noted EXTREMITIES: Normal range of motion. No clubbing or cyanosis. Peripheral pulses intact. No lower extremity edema ASSESSMENT: Urinary tract infection Acute exacerbation of chronic systolic heart failure, EF 40-45% Paroxysmal atrial fibrillation, on anticoagulation with Eliquis Coronary artery disease with previous PCI to mid LAD and RCA PLAN: Discontinue IV Lasix. Begin oral Lasix 40 mg twice a day Increase metoprolol to 75 mg twice a day Wean off Cardizem drip Further recommendations pending patient's course Nurse practitioner note has been reviewed by physician. Signing provider agrees with the documented findings, assessment, and plan of care. Objective - Vital Signs Vital signs: Vital Signs Temp 99.0 F 04/24/20 08:00 Pulse 103 H 04/24/20 08:00 Resp 18 04/24/20 08:00 BP 113/54 04/24/20 08:00 Pulse Ox 97 04/24/20 08:00 Intake & Output 04/23/20 04/24/20 04/24/20 18:59 06:59 18:59 Intake Total 720 Output Total 1000 900 300 Balance -280 -900 -300 Weight 80.4 kg Intake: Oral 720 Output: Urine 1000 900 300 Other: Voiding Method Toilet Toilet Toilet # Voids 1 1 - Labs CBC & Chem 7: 04/23/20 09:51 04/24/20 11:30 Labs: Abnormal Lab Results - Last 24 Hours (Table) 04/23/20 04/24/20 04/24/20 Range/Units 20:35 01:44 06:18 BUN (7-17) mg/dL Creatinine (0.52-1.04) mg/dL Glucose (74-99) mg/dL POC Glucose (mg/dL) 294 H 145 H 228 H (75-99) mg/dL Total Bilirubin (0.2-1.3) mg/dL 04/24/20 04/24/20 Range/Units 11:30 12:16 BUN 37 H (7-17) mg/dL Creatinine 1.40 H (0.52-1.04) mg/dL Glucose 267 H (74-99) mg/dL POC Glucose (mg/dL) 294 H (75-99) mg/dL Total Bilirubin 1.8 H (0.2-1.3) mg/dL Microbiology - Last 24 Hours (Table) 04/22/20 05:28 Blood Culture - Preliminary Blood No Growth after 48 hours 04/22/20 05:35 Blood Culture - Preliminary Blood No Growth after 48 hours 04/22/20 16:46 Urine Culture - Preliminary Urine,Clean Catch Group D Enterococcus
[2020-04-24 17:19] LABS: Glucose,Whole Blood 142 mg/dL (75-99)
[2020-04-24] MEDS: METOPROLOL TARTRATE 25 MG TAB PO SCH (17:32)
[2020-04-24] MEDS: FUROSEMIDE 40 MG TAB PO SCH (17:32)
[2020-04-24 18:35] VITALS: RESP 18
[2020-04-24 20:36] LABS: Glucose,Whole Blood 305 mg/dL (75-99)
[2020-04-25 06:31] LABS: Glucose,Whole Blood 133 mg/dL (75-99)
[2020-04-25] MEDS: INSULIN ASPART (NovoLOG) 100 UNIT/ML VIAL SQ SCH ×2 (06:38→12:12)
[2020-04-25] MEDS: glipiZIDE 10 MG TAB PO SCH (06:49)
[2020-04-25 08:15] LABS: HCT 29.8 % (34.0-46.0); HGB 9.9 gm/dL (11.4-16.0); MCHC 33.1 g/dL (31.0-37.0); MCV 87.6 fL (80.0-100.0); Mean Platelet Volume 10.6; Platelet Count 114 k/uL (150-450); WBC 7.4 k/uL (3.8-10.6)
[2020-04-25 08:16] VITALS: BP 147/67; PULSE 60; TEMP 97.6
[2020-04-25] MEDS: APIXABAN 5 MG TAB PO SCH (08:24)
[2020-04-25] MEDS: AMIODARONE 200 MG TAB PO SCH (08:24)
[2020-04-25] MEDS: ASPIRIN 81 MG PO SCH (08:24)
[2020-04-25] MEDS: CHOLECALCIFEROL 25 MCG (1000 IU) TABLET PO SCH (08:25)
[2020-04-25] MEDS: FLUCONAZOLE 100 MG TAB PO SCH (08:25)
[2020-04-25] MEDS: FERROUS SULFATE 325 MG TAB PO SCH (08:25)
[2020-04-25] MEDS: lisinopriL 20 MG TAB PO SCH (08:25)
[2020-04-25] MEDS: PHENAZOPYRIDINE 200 MG TAB PO SCH (08:25)
[2020-04-25] MEDS: FUROSEMIDE 40 MG TAB PO SCH (08:25)
[2020-04-25 08:30] LABS: Albumin 3.6 g/dL (3.5-5.0); Calcium 9.4 mg/dL (8.4-10.2); Potassium 3.3 mmol/L (3.5-5.1); Total Bilirubin 1.4 mg/dL (0.2-1.3); Total Protein 6.3 g/dL (6.3-8.2)
[2020-04-25] MEDS ORDERED: METOPROLOL TARTRATE 25 MG TAB PO SCH (09:00)
[2020-04-25] MEDS ORDERED: NYSTATIN 100,000UNIT/GM CREAM 30 GM TUBE TOPICAL SCH (09:00)
[2020-04-25] MEDS: POTASSIUM CHLORIDE ER 20 MEQ TAB.ER PO SCH ×2 (09:00→09:49)
[2020-04-25] MEDS: METOPROLOL TARTRATE 25 MG TAB PO SCH (09:02)
--- NOTE | 2020-04-25 11:06 | PN ---
PROGRESS NOTE Vicky is a 75-year-old lady who is admitted to the hospital with symptoms of congestive heart failure and atrial fibrillation. She is back in sinus rhythm now on Cordarone 200 b.i.d., Eliquis 5 b.i.d., aspirin, Lasix, Glucotrol, Zestril and Lopressor 25 b.i.d. Her heart rate is around 50 beats per minute. PHYSICAL EXAMINATION: On exam, heart rate is 60 beats per minute. Blood pressure is 140/67. Respiratory rate is 18. O2 saturation is 99% on room air. There is no jugular venous distention. Chest exam reveals good air entry bilaterally. Heart exam reveals first and second heart sounds. No gallop. Examination of extremities did not reveal any edema. Peripheral pulses are felt. LABS: Labs show that the BUN is 49, creatinine is 1.6. ASSESSMENT: 1. Acute exacerbation of chronic systolic heart failure. 2. Paroxysmal atrial fibrillation. PLAN: I am going to cut back on the Lasix as she is developing significant prerenal azotemia. Will let her go home on 40 mg daily of Lasix along with K-Dur. She will follow up with me in the office with an appointment that she already has. MMODL / IJN: [id number] /
[2020-04-25 11:55] LABS: Glucose,Whole Blood 268 mg/dL (75-99)
== END 2020-04-25 12:46 | disposition home or self-care (01) | DRG 291 ==
LOC: EC 04:58 → 3SCARD 07:47
PROVIDERS: ADMIT Family Medicine; ATTEND Family Medicine
PROC: 5A09357 Assistance with Respiratory Ventilation, Less than 24 Consecutive Hours, Continuous Positive Airway Pressure (ICD-10-PCS; principal; 2020-04-22)
DX: I13.0 Hypertensive heart and chronic kidney disease with heart failure and stage 1 through stage 4 chronic kidney disease, or unspecified chronic kidney disease (principal); J18.9 Pneumonia, unspecified organism; I50.23 Acute on chronic systolic (congestive) heart failure; J98.11 Atelectasis; N39.0 Urinary tract infection, site not specified; N17.9 Acute kidney failure, unspecified; I48.0 Paroxysmal atrial fibrillation; E11.9 Type 2 diabetes mellitus without complications; I08.1 Rheumatic disorders of both mitral and tricuspid valves; N18.30 Chronic kidney disease, stage 3 unspecified; I25.10 Atherosclerotic heart disease of native coronary artery without angina pectoris; Z20.822 Contact with and (suspected) exposure to COVID-19; I16.0 Hypertensive urgency; I25.5 Ischemic cardiomyopathy; I27.20 Pulmonary hypertension, unspecified; I44.7 Left bundle-branch block, unspecified; Z87.891 Personal history of nicotine dependence; Z86.74 Personal history of sudden cardiac arrest; Z83.3 Family history of diabetes mellitus; Z82.5 Family history of asthma and other chronic lower respiratory diseases; Z80.1 Family history of malignant neoplasm of trachea, bronchus and lung; Z79.899 Other long term (current) drug therapy; Z79.82 Long term (current) use of aspirin; Z79.01 Long term (current) use of anticoagulants; Z88.1 Allergy status to other antibiotic agents; Z91.040 Latex allergy status; Z88.0 Allergy status to penicillin; Z88.8 Allergy status to other drugs, medicaments and biological substances; Z91.018 Allergy to other foods; I25.2 Old myocardial infarction; Z95.5 Presence of coronary angioplasty implant and graft; Z98.890 Other specified postprocedural states
CPT/HCPCS: 36415; 71045; 80053; 81001; 83605; 83880; 84484; 85025; 85027; 85610; 85730; 87040; 87077; 87086; 87186; 87635; 93005; 93308; 94660; 94760; 96365; 96366; 96368; 96375; 99291

== ENCOUNTER 2020-04-27 02:47 | Emergency (ER) | payer MEDICARE, OTHER ==
[2020-04-27 03:02] VITALS: RESP 20; TEMP 98.1
[2020-04-27] MEDS ORDERED: SODIUM CHLORIDE 0.9% 1,000 ML IV STA (03:12)
[2020-04-27] MEDS ORDERED: SENNOSIDES-DOCUSATE SODIUM 1 EACH TAB PO STA (03:14)
[2020-04-27] MEDS ORDERED: MAGNESIUM CITRATE 296 ML BOTTLE PO ONE (03:14)
[2020-04-27] MEDS ORDERED: GLYCERIN ADULT SUPPOSITORY 1 EACH RECTAL STA (03:14)
--- NOTE | 2020-04-27 03:15 | ED ---
Abdominal Pain HPI - General Chief Complaint: Abdominal Pain Stated Complaint: Urogenital Time Seen by Provider: 04/27/20 02:53 Source: patient, RN notes reviewed, old records reviewed Mode of arrival: wheelchair Limitations: no limitations - History of Present Illness Initial Comments: This is a 75-year-old female who presents emergency prior. This patient presents today for evaluation of an ability to have a bowel movement. Patient states she is about a week out of no bowel movements. Patient is recent change in medications no other complaints patient has no history of abdominal surgery and does have a history of acute on chronic constipation she does occasionally take stool softeners. Because she was having diarrhea MD Complaint: abdominal pain (Difficulty having bowel movements) -: week(s) Location: diffuse Migration to: no migration Severity: mild Severity scale (1-10): 3 Quality: cramping Consistency: constant Worsens With: nothing Associated Symptoms: nausea - Related Data Home Medications Medication Instructions Recorded Confirmed glipiZIDE [Glipizide ER] 10 mg PO BID 01/08/14 04/22/20 Ferrous Sulfate [Iron (65 MG 325 mg PO DAILY 02/12/19 04/22/20 Elemental)] Ascorbic Acid [Vitamin C] 500 mg PO DAILY 03/25/20 04/22/20 Enalapril Maleate [Vasotec] 5 mg PO BID 03/25/20 04/22/20 L.acidoph,Fany, B.lactis 1 tab PO DAILY 03/25/20 04/22/20 [Probiotic] Vitamin B Complex 1 cap PO DAILY 03/25/20 04/22/20 Cholecalciferol [Vitamin D3 (25 50 mcg PO DAILY 04/14/20 04/22/20 Mcg = 1000 Iu)] Amiodarone [Cordarone] 200 mg PO BID 04/22/20 04/22/20 Previous Rx's Medication Instructions Recorded Aspirin 81 mg PO DAILY #30 chew 07/01/19 Apixaban [Eliquis] 5 mg PO BID #60 tab 03/28/20 Fluconazole [Diflucan] 100 mg PO DAILY #7 tab 04/25/20 Furosemide [Lasix] 40 mg PO DAILY #0 tablet 04/25/20 Metoprolol Tartrate [Lopressor] 25 mg PO AC-BID #60 tab 04/25/20 Phenazopyridine [Pyridium] 200 mg PO TID #15 tab 04/25/20 Potassium Chloride ER [K-Dur 20] 20 meq PO DAILY #90 tab 04/25/20 polyethylene glycoL 3350 [Miralax] 17 gm PO DAILY #14 packet 04/27/20 Allergies Allergy/AdvReac Type Severity Reaction Status Date / Time Corticosteroids Allergy Unknown Unknown Verified 04/22/20 06:40 (Glucocorticoids) azithromycin [From Zithromax] Allergy Anaphylaxis Verified 04/22/20 06:40 banana Allergy Unknown Verified 04/22/20 06:40 carisoprodol [From Soma] Allergy Unknown Verified 04/22/20 06:40 ciprofloxacin [From Cipro] Allergy Unknown Verified 04/22/20 06:40 cortisone [Cortisone] Allergy Unknown Verified 04/22/20 06:40 cyclobenzaprine HCl Allergy Unknown Verified 04/22/20 06:40 [From Flexeril] egg Allergy Unknown Verified 04/22/20 06:40 latex Allergy Unknown Verified 04/22/20 06:40 Latex, Natural Rubber Allergy Unknown Verified 04/22/20 06:40 levofloxacin [From Levaquin] Allergy Anaphylaxis Verified 04/22/20 06:40 Penicillins Allergy Anaphylaxis Verified 04/22/20 06:40 Review of Systems ROS Statement: Those systems with pertinent positive or pertinent negative responses have been documented in the HPI. ROS Other: All systems not noted in ROS Statement are negative. 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 Last Myocardial Infarction Date:: 01-03-14 History of Any Multi-Drug Resistant Organisms: None Reported Past Surgical History: Heart Catheterization With Stent Additional Past Surgical History / Comment(s): d&c, stent RCA 01-07-14, stent LAD 02/14/2019 Past Anesthesia/Blood Transfusion Reactions: No Reported Reaction Date of Last Stent Placement:: 2013 Past Psychological History: No Psychological Hx Reported Smoking Status: Former smoker Past Alcohol Use History: None Reported Past Drug Use History: None Reported - Past Family History Father Family Medical History: Cancer, Diabetes Mellitus Additional Family Medical History / Comment(s): age 70 from lung cancer Mother Additional Family Medical History / Comment(s): age 83 emphysema General Exam Limitations: no limitations General appearance: alert, in no apparent distress, obese Head exam: Present: atraumatic, normocephalic, normal inspection Eye exam: Present: normal appearance, PERRL, EOMI. Absent: scleral icterus, conjunctival injection, periorbital swelling ENT exam: Present: normal exam, mucous membranes moist Neck exam: Present: normal inspection. Absent: tenderness, meningismus, lymphadenopathy Respiratory exam: Present: normal lung sounds bilaterally. Absent: respiratory distress, wheezes, rales, rhonchi, stridor Cardiovascular Exam: Present: regular rate, normal rhythm, normal heart sounds. Absent: systolic murmur, diastolic murmur, rubs, gallop, clicks GI/Abdominal exam: Present: soft, normal bowel sounds. Absent: distended, tenderness, guarding, rebound, rigid Extremities exam: Present: normal inspection, full ROM, normal capillary refill. Absent: tenderness, pedal edema, joint swelling, calf tenderness Back exam: Present: normal inspection Neurological exam: Present: alert, oriented X3, CN II-XII intact Psychiatric exam: Present: normal affect, normal mood Skin exam: Present: warm, dry, intact, normal color. Absent: rash Course Vital Signs 04/27/20 04/27/20 04/27/20 02:50 02:55 07:28 Temperature 98.1 F 98.1 F Pulse Rate 60 61 79 Respiratory 20 20 20 Rate Blood Pressure 141/97 128/47 138/84 O2 Sat by Pulse 100 99 99 Oximetry - Reevaluation(s) Reevaluation #1: 04/27/20 06:07 Medical record is reviewed Reevaluation #2: 04/27/20 06:07 Patient has had multiple medications for bowel movement and 2 enemas here in the emergency department Patient has successful disimpaction Bowel movement here in the ER Procedures - Rectal Disimpaction Consent Obtained: verbal consent Indication: fecal impaction Procedural Sedation: No Sedation/Analgesia: none Technique: manual disimpaction with gloved finger Result: significant stool output Complications: none Patient Tolerated Procedure: well Medical Decision Making - Medical Decision Making 75 female to the ER for evaluation of severe abdominal pain with successful disimpaction. Patient is improved here in the ER and can be discharged home - Radiology Data Radiology results: report reviewed (X-ray abdominal series does show significant amount of bowel stool as well as likely fecal impaction), image reviewed Disposition Clinical Impression: Abdominal pain, Constipation Disposition: HOME SELF-CARE Condition: Good Instructions (If sedation given, give patient instructions): Constipation (ED) Prescriptions: polyethylene glycoL 3350 [Miralax] 17 gm PO DAILY #14 packet Is patient prescribed a controlled substance at d/c from ED?: No Referrals: Last Barrios MD [Primary Care Provider] - 1-2 days
--- NOTE | 2020-04-27 04:04 | XR ---
EXAM: XR Abdomen, 2 Views and XR Chest, 1 View CLINICAL HISTORY: Shortness of breath. TECHNIQUE: Frontal view of the chest, frontal view of the abdomen/pelvis and upright or decubitus view of the abdomen. COMPARISON: 04/22/2020. FINDINGS: Lungs: Slight prominence of central pulmonary vascular. Minimal haziness at the lung bases bilaterally possibly on the basis of early pulmonary edema. Pleural space: Unremarkable. No pneumothorax. Heart: Cardiomegaly. Mediastinum: Unremarkable. Intraperitoneal space: No free air. Gastrointestinal tract: Moderate to large quantity of stool throughout the colon, including the rectosigmoid. Bones/joints: Osteopenia. IMPRESSION: 1. Moderate to large quantity of stool throughout the colon including the rectosigmoid possibilities of constipation/fecal impaction. Clinical correlation is advised. 2. Cardiomegaly and findings worrisome for incipient congestive heart failure. Clinical correlation is advised to 3. Osteopenia.
[2020-04-27 07:29] VITALS: BP 138/84; PULSE 79
== END 2020-04-27 07:33 | disposition home or self-care (01) ==
LOC: EC 02:47
DX: K59.00 Constipation, unspecified (principal); E11.9 Type 2 diabetes mellitus without complications; I10 Essential (primary) hypertension; I25.2 Old myocardial infarction; Z79.84 Long term (current) use of oral hypoglycemic drugs; Z79.899 Other long term (current) drug therapy; Z88.0 Allergy status to penicillin; Z88.1 Allergy status to other antibiotic agents; Z88.8 Allergy status to other drugs, medicaments and biological substances; Z91.012 Allergy to eggs; Z91.018 Allergy to other foods; Z91.040 Latex allergy status; Z95.5 Presence of coronary angioplasty implant and graft; Z87.891 Personal history of nicotine dependence
CPT/HCPCS: 74022; 99284

== ENCOUNTER 2020-05-04 08:10 | Observation (INO) | payer MEDICARE, OTHER ==
[2020-05-04] MEDS ORDERED: ASPIRIN 81 MG PO STA (08:40)
--- NOTE | 2020-05-04 08:42 | ED ---
SOB HPI - General Chief Complaint: Shortness of Breath Stated Complaint: SOB Time Seen by Provider: 05/04/20 08:10 Source: patient, EMS Mode of arrival: EMS - History of Present Illness Initial Comments: 75-year-old female with history of CHF, atrial fibrillation, COPD presenting to the ER today for chief complaint of shortness of breath 3 hours. Patient states she was at home and for approximately 1.5 hours she was experiencing shortness of breath. She states she woke up with it she denies any chest pain pressure. Deep inspiration she denies noting leg swelling calf pain hemoptysis. She states she is compliant with her elqiuis she denies rectal bleeding/dark stools Denies wheezing, cough, congestion. Patient admit to nausea, denies vomiting. Patient denies abdominal pain. Denies recording a fever at home. Denies additional complaints. - Related Data Home Medications Medication Instructions Recorded Confirmed glipiZIDE [Glipizide ER] 10 mg PO BID 01/08/14 05/04/20 Ferrous Sulfate [Iron (65 MG 325 mg PO DAILY 02/12/19 05/04/20 Elemental)] Ascorbic Acid [Vitamin C] 500 mg PO DAILY 03/25/20 05/04/20 Enalapril Maleate [Vasotec] 5 mg PO BID 03/25/20 05/04/20 Fany Pitts B.lactis 1 tab PO DAILY 03/25/20 05/04/20 [Probiotic] Vitamin B Complex 1 cap PO DAILY 03/25/20 05/04/20 Cholecalciferol [Vitamin D3 (25 50 mcg PO DAILY 04/14/20 05/04/20 Mcg = 1000 Iu)] Amiodarone [Cordarone] 200 mg PO BID 04/22/20 05/04/20 Metoprolol Tartrate [Lopressor] 25 mg PO BID 05/04/20 05/04/20 polyethylene glycoL 3350 [Miralax] 17 gm PO DAILY PRN 05/04/20 05/04/20 Previous Rx's Medication Instructions Recorded Aspirin 81 mg PO DAILY #30 chew 07/01/19 Apixaban [Eliquis] 5 mg PO BID #60 tab 03/28/20 Furosemide [Lasix] 40 mg PO DAILY #0 tablet 04/25/20 Potassium Chloride ER [K-Dur 20] 20 meq PO DAILY #90 tab 04/25/20 Allergies Allergy/AdvReac Type Severity Reaction Status Date / Time Corticosteroids Allergy Unknown Unknown Verified 05/04/20 08:52 (Glucocorticoids) azithromycin [From Zithromax] Allergy Anaphylaxis Verified 05/04/20 08:52 banana Allergy Unknown Verified 05/04/20 08:52 carisoprodol [From Soma] Allergy Unknown Verified 05/04/20 08:52 ciprofloxacin [From Cipro] Allergy Unknown Verified 05/04/20 08:52 cortisone [Cortisone] Allergy Unknown Verified 05/04/20 08:52 cyclobenzaprine HCl Allergy Unknown Verified 05/04/20 08:52 [From Flexeril] egg Allergy Unknown Verified 05/04/20 08:52 latex Allergy Unknown Verified 05/04/20 08:52 Latex, Natural Rubber Allergy Unknown Verified 05/04/20 08:52 levofloxacin [From Levaquin] Allergy Anaphylaxis Verified 05/04/20 08:52 Penicillins Allergy Anaphylaxis Verified 05/04/20 08:52 Review of Systems ROS Statement: Those systems with pertinent positive or pertinent negative responses have been documented in the HPI. ROS Other: All systems not noted in ROS Statement are negative. 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 Last Myocardial Infarction Date:: 01-03-14 History of Any Multi-Drug Resistant Organisms: None Reported Past Surgical History: Heart Catheterization With Stent Additional Past Surgical History / Comment(s): d&c, stent RCA 01-07-14, stent LAD 02/14/2019 Past Anesthesia/Blood Transfusion Reactions: No Reported Reaction Date of Last Stent Placement:: 2013 Past Psychological History: No Psychological Hx Reported Smoking Status: Former smoker Past Alcohol Use History: None Reported Past Drug Use History: None Reported - Past Family History Father Family Medical History: Cancer, Diabetes Mellitus Additional Family Medical History / Comment(s): age 70 from lung cancer Mother Additional Family Medical History / Comment(s): age 83 emphysema General Exam - General Exam Comments Initial Comments: General: The patient is awake and alert, in no distress Eye: +3 mm pupils are equal, round and reactive to light, extra-ocular movements are intact. No nystagmus. There is normal conjunctiva bilaterally. No signs of icterus. Ears, nose, mouth and throat: There are moist mucous membranes and no oral lesions. Neck: The neck is supple, there is no tenderness or JVD. Cardiovascular: There is a regular rate and rhythm. No murmur, rub or gallop is appreciated. Respiratory: Lungs are clear to auscultation, respirations are non-labored, breath sounds are equal. No wheezes, stridor, rales, or rhonchi. Gastrointestinal: Soft, non-distended, non-tender abdomen without masses or organomegaly noted. There is no rebound or guarding present. Rectal: light brown stool, no dark stool or bright red blood Musculoskeletal: Normal ROM, no tenderness. Strength 5/5. Sensation intact. Radial pulses equal bilaterally 2+. Neurological: A&O x 3. CN II-XII intact grossly, There are no obvious motor or sensory deficits. Coordination appears grossly intact. Speech is normal. Skin: Skin is warm and dry and no rashes or lesions are noted. No pitting edema Psychiatric: Cooperative, appropriate mood & affect, normal judgment. Course Vital Signs 05/04/20 05/04/20 08:11 09:51 Temperature 98.9 F 100.3 F H Pulse Rate 73 72 Respiratory 18 18 Rate Blood Pressure 145/89 145/51 O2 Sat by Pulse 99 98 Oximetry Medical Decision Making - Medical Decision Making Chronic anemia. Elevated glucose. Elevated BNP from baseline with findings of CHF on cxr, pt does have fever. concern for infection, PNA. UA pending Patient has been given abx, lasix and placed on low levels of IV hydration given concern dehydration/hyponatremia. Patient case discussed [facility] Dr. Nicole who did evaluate the patient, he is agreeable to admission and care plan which he helped create. Dr Deng accepted the admission. - Lab Data Result diagrams: 05/04/20 08:32 05/04/20 08:32 Lab Results 05/04/20 05/04/20 05/04/20 Range/Units 08:32 08:32 08:32 WBC 12.3 H (3.8-10.6) k/uL RBC 3.48 L (3.80-5.40) m/uL Hgb 9.7 L (11.4-16.0) gm/dL Hct 30.7 L (34.0-46.0) % MCV 88.0 (80.0-100.0) fL MCH 28.0 (25.0-35.0) pg MCHC 31.8 (31.0-37.0) g/dL RDW 15.7 H (11.5-15.5) % Plt Count 149 L (150-450) k/uL MPV 10.6 Neutrophils % 69 % Lymphocytes % 21 % Monocytes % 5 % Eosinophils % 2 % Basophils % 1 % Neutrophils # 8.5 H (1.3-7.7) k/uL Lymphocytes # 2.5 (1.0-4.8) k/uL Monocytes # 0.6 (0-1.0) k/uL Eosinophils # 0.2 (0-0.7) k/uL Basophils # 0.1 (0-0.2) k/uL PT 12.4 H (9.0-12.0) sec INR 1.2 H (<1.2) APTT 24.9 (22.0-30.0) sec Sodium 129 L (137-145) mmol/L Potassium 5.2 H (3.5-5.1) mmol/L Chloride 92 L (98-107) mmol/L Carbon Dioxide 23 (22-30) mmol/L Anion Gap 14 mmol/L BUN 41 H (7-17) mg/dL Creatinine 1.70 H (0.52-1.04) mg/dL Est GFR (CKD-EPI)AfAm 33 (>60 ml/min/1.73 sqM) Est GFR (CKD-EPI)NonAf 29 (>60 ml/min/1.73 sqM) Glucose 478 H (74-99) mg/dL Plasma Lactic Acid Jona (0.7-2.0) mmol/L Calcium 9.2 (8.4-10.2) mg/dL Magnesium 1.8 (1.6-2.3) mg/dL Total Bilirubin 1.2 (0.2-1.3) mg/dL AST 22 (14-36) U/L ALT 19 (4-34) U/L Alkaline Phosphatase 84 (38-126) U/L Troponin I (0.000-0.034) ng/mL NT-Pro-B Natriuret Pep pg/mL Total Protein 6.5 (6.3-8.2) g/dL Albumin 3.8 (3.5-5.0) g/dL Stool Occult Blood (Negative) Acetone, Qual (Negative) Coronavirus (PCR) (Not Detectd) Influenza Type A RNA (Not Detectd) Influenza Type B (PCR) (Not Detectd) 05/04/20 05/04/20 05/04/20 Range/Units 08:32 08:32 08:32 WBC (3.8-10.6) k/uL RBC (3.80-5.40) m/uL Hgb (11.4-16.0) gm/dL Hct (34.0-46.0) % MCV (80.0-100.0) fL MCH (25.0-35.0) pg MCHC (31.0-37.0) g/dL RDW (11.5-15.5) % Plt Count (150-450) k/uL MPV Neutrophils % % Lymphocytes % % Monocytes % % Eosinophils % % Basophils % % Neutrophils # (1.3-7.7) k/uL Lymphocytes # (1.0-4.8) k/uL Monocytes # (0-1.0) k/uL Eosinophils # (0-0.7) k/uL Basophils # (0-0.2) k/uL PT (9.0-12.0) sec INR (<1.2) APTT (22.0-30.0) sec Sodium (137-145) mmol/L Potassium (3.5-5.1) mmol/L Chloride (98-107) mmol/L Carbon Dioxide (22-30) mmol/L Anion Gap mmol/L BUN (7-17) mg/dL Creatinine (0.52-1.04) mg/dL Est GFR (CKD-EPI)AfAm (>60 ml/min/1.73 sqM) Est GFR (CKD-EPI)NonAf (>60 ml/min/1.73 sqM) Glucose (74-99) mg/dL Plasma Lactic Acid Jona 2.1 H* (0.7-2.0) mmol/L Calcium (8.4-10.2) mg/dL Magnesium (1.6-2.3) mg/dL Total Bilirubin (0.2-1.3) mg/dL AST (14-36) U/L ALT (4-34) U/L Alkaline Phosphatase (38-126) U/L Troponin I <0.012 (0.000-0.034) ng/mL NT-Pro-B Natriuret Pep 8480 pg/mL Total Protein (6.3-8.2) g/dL Albumin (3.5-5.0) g/dL Stool Occult Blood (Negative) Acetone, Qual (Negative) Coronavirus (PCR) (Not Detectd) Influenza Type A RNA (Not Detectd) Influenza Type B (PCR) (Not Detectd) 05/04/20 05/04/20 05/04/20 Range/Units 08:38 09:36 09:41 WBC (3.8-10.6) k/uL RBC (3.80-5.40) m/uL Hgb (11.4-16.0) gm/dL Hct (34.0-46.0) % MCV (80.0-100.0) fL MCH (25.0-35.0) pg MCHC (31.0-37.0) g/dL RDW (11.5-15.5) % Plt Count (150-450) k/uL MPV Neutrophils % % Lymphocytes % % Monocytes % % Eosinophils % % Basophils % % Neutrophils # (1.3-7.7) k/uL Lymphocytes # (1.0-4.8) k/uL Monocytes # (0-1.0) k/uL Eosinophils # (0-0.7) k/uL Basophils # (0-0.2) k/uL PT (9.0-12.0) sec INR (<1.2) APTT (22.0-30.0) sec Sodium (137-145) mmol/L Potassium (3.5-5.1) mmol/L Chloride (98-107) mmol/L Carbon Dioxide (22-30) mmol/L Anion Gap mmol/L BUN (7-17) mg/dL Creatinine (0.52-1.04) mg/dL Est GFR (CKD-EPI)AfAm (>60 ml/min/1.73 sqM) Est GFR (CKD-EPI)NonAf (>60 ml/min/1.73 sqM) Glucose (74-99) mg/dL Plasma Lactic Acid Jona (0.7-2.0) mmol/L Calcium (8.4-10.2) mg/dL Magnesium (1.6-2.3) mg/dL Total Bilirubin (0.2-1.3) mg/dL AST (14-36) U/L ALT (4-34) U/L Alkaline Phosphatase (38-126) U/L Troponin I (0.000-0.034) ng/mL NT-Pro-B Natriuret Pep pg/mL Total Protein (6.3-8.2) g/dL Albumin (3.5-5.0) g/dL Stool Occult Blood Negative (Negative) Acetone, Qual Negative (Negative) Coronavirus (PCR) Not Detected (Not Detectd) Influenza Type A RNA (Not Detectd) Influenza Type B (PCR) (Not Detectd) 05/04/20 Range/Units 09:41 WBC (3.8-10.6) k/uL RBC (3.80-5.40) m/uL Hgb (11.4-16.0) gm/dL Hct (34.0-46.0) % MCV (80.0-100.0) fL MCH (25.0-35.0) pg MCHC (31.0-37.0) g/dL RDW (11.5-15.5) % Plt Count (150-450) k/uL MPV Neutrophils % % Lymphocytes % % Monocytes % % Eosinophils % % Basophils % % Neutrophils # (1.3-7.7) k/uL Lymphocytes # (1.0-4.8) k/uL Monocytes # (0-1.0) k/uL Eosinophils # (0-0.7) k/uL Basophils # (0-0.2) k/uL PT (9.0-12.0) sec INR (<1.2) APTT (22.0-30.0) sec Sodium (137-145) mmol/L Potassium (3.5-5.1) mmol/L Chloride (98-107) mmol/L Carbon Dioxide (22-30) mmol/L Anion Gap mmol/L BUN (7-17) mg/dL Creatinine (0.52-1.04) mg/dL Est GFR (CKD-EPI)AfAm (>60 ml/min/1.73 sqM) Est GFR (CKD-EPI)NonAf (>60 ml/min/1.73 sqM) Glucose (74-99) mg/dL Plasma Lactic Acid Jona (0.7-2.0) mmol/L Calcium (8.4-10.2) mg/dL Magnesium (1.6-2.3) mg/dL Total Bilirubin (0.2-1.3) mg/dL AST (14-36) U/L ALT (4-34) U/L Alkaline Phosphatase (38-126) U/L Troponin I (0.000-0.034) ng/mL NT-Pro-B Natriuret Pep pg/mL Total Protein (6.3-8.2) g/dL Albumin (3.5-5.0) g/dL Stool Occult Blood (Negative) Acetone, Qual (Negative) Coronavirus (PCR) (Not Detectd) Influenza Type A RNA Not Detected (Not Detectd) Influenza Type B (PCR) Not Detected (Not Detectd) Disposition Clinical Impression: Dyspnea, Fever, CHF exacerbation Disposition: ADMITTED IP TO THIS HOSP Condition: Stable Is patient prescribed a controlled substance at d/c from ED?: No Referrals: Last Barrios MD [Primary Care Provider] - 1-2 days Time of Disposition: 10:27 Decision to Admit Reason: Admit from EC Decision Date: 05/04/20 Decision Time: 10:27
[2020-05-04 08:52] LABS: INR 1.2 (<1.2); Partial Thromboplastin Time 24.9 sec (22.0-30.0); Prothrombin Time 12.4 sec (9.0-12.0)
[2020-05-04 08:53] LABS: Albumin 3.8 g/dL (3.5-5.0); Calcium 9.2 mg/dL (8.4-10.2); Magnesium 1.8 mg/dL (1.6-2.3); Potassium 5.2 mmol/L (3.5-5.1); Total Bilirubin 1.2 mg/dL (0.2-1.3); Total Protein 6.5 g/dL (6.3-8.2)
[2020-05-04] MEDS ORDERED: ONDANSETRON 4 MG/2 ML VIAL IVP STA (08:58)
[2020-05-04] MEDS ORDERED: LORazepam 2 MG/ML INJ IV STA (08:58)
[2020-05-04 09:00] LABS: Basophils # (A) 0.1 k/uL (0-0.2); Basophils % (A) 1 %; Eosinophils # (A) 0.2 k/uL (0-0.7); Eosinophils % (A) 2 %; HCT 30.7 % (34.0-46.0); HGB 9.7 gm/dL (11.4-16.0); Lymphocytes # (A) 2.5 k/uL (1.0-4.8); Lymphocytes % (A) 21 %; MCHC 31.8 g/dL (31.0-37.0); Mean Platelet Volume 10.6; Monocytes # (A) 0.6 k/uL (0-1.0); Monocytes % (A) 5 %; Neutrophils # (A) 8.5 k/uL (1.3-7.7); Neutrophils % (A) 69 %; Platelet Count 149 k/uL (150-450); RBC 3.48 m/uL (3.80-5.40); RDW 15.7 % (11.5-15.5); WBC 12.3 k/uL (3.8-10.6)
[2020-05-04] MEDS ORDERED: INSULIN REGULAR 100 UNIT/ML VIAL IV ONE (09:02)
[2020-05-04] MEDS ORDERED: ACETAMINOPHEN TAB 325 MG TAB PO STA (09:08)
[2020-05-04] MEDS ORDERED: cefTRIAXone IN SWFI 1,000 MG/10 ML SYRINGE IVP STA (09:10)
--- NOTE | 2020-05-04 09:58 | XR ---
EXAMINATION TYPE: XR chest 2V DATE OF EXAM: 05/04/2020 COMPARISON: 04/22/2020 HISTORY: Shortness of breath FINDINGS: Noted is pulmonary venous congestion with scattered infiltrates. There is also cardiomegaly and small effusions. IMPRESSION: Findings compatible with congestive failure. Infiltrates of other etiology are not excluded. Clinical correlation and progress studies are recommended.
[2020-05-04] MEDS ORDERED: NALOXONE 0.4 MG/ML 1 ML VIAL IV PRN (10:23)
[2020-05-04] MEDS ORDERED: FUROSEMIDE 10 MG/ML 4 ML VIAL IV STA (10:25)
[2020-05-04] MEDS ORDERED: SODIUM CHLORIDE 0.9% 1,000 ML IV SCH (10:30)
--- NOTE | 2020-05-04 11:39 | P.HPIM ---
History of Present Illness Pleasant 75-year-old female came in with comments of shortness of breath patient is comparing of orthopnea which started 3 morning patient was having generalized body aches is found to have fevers patient influenza test was negative and patient is negative for coVID19. Patient denied any proximal nocturnal dyspnea patient does have history of for just the heart failure with the ejection fraction of around 20-25% patient BNP is around 8000 I cannot clearly assess JVD because of her Accessory muscle use and patient did have a low-grade fever patient the denied any cough. Patient is complaint with all her medications and dietary recommendations. Does have lactic acidosis with minimally elevated lactic acid of to around 2.1. Patient denied any dysuria and was given a dose of Rocephin. Patient the has creatinine of around 1.7 baseline appears to be around 1.3-1.5. Patient does have history of atrial fibrillation on amiodarone and metoprolol. As per the patient amiodarone makes her really weak patient cannot even walk after amiodarone Review of Systems REVIEW OF SYSTEMS: CONSTITUTIONAL: No fever, no malaise, no fatigue. HEENT: No recent visual problems or hearing problems. Denied any sore throat. CARDIOVASCULAR: No chest pain, no palpitations, no syncope. PULMONARY: no hemoptysis. GASTROINTESTINAL: No diarrhea, no nausea, no vomiting, no abdominal pain. NEUROLOGICAL: No headaches, no weakness, no numbness. HEMATOLOGICAL: Denies any bleeding or petechiae. GENITOURINARY: Denies any burning micturition, frequency, or urgency. MUSCULOSKELETAL/RHEUMATOLOGICAL: Denies any joint pain, swelling, or any muscle pain. ENDOCRINE: Denies any polyuria or polydipsia. The rest of the 14-point review of systems is negative. Past Medical History Past Medical History: Atrial Fibrillation, Chest Pain / Angina, Diabetes Mellitus, Hypertension, Myocardial Infarction ([place]), Osteoarthritis (OA), Pneumonia Additional Past Medical History / Comment(s): arthritis, 01-03-14 cardiac arrest/resp failure/mi post intubation came from [facility] to our radiographer cardiac catheterization 01-07-14. Last Myocardial Infarction Date:: 01-03-14 History of Any Multi-Drug Resistant Organisms: None Reported Past Surgical History: Heart Catheterization With Stent Additional Past Surgical History / Comment(s): d&c, stent RCA 01-07-14, stent LAD 02/14/2019 Past Anesthesia/Blood Transfusion Reactions: No Reported Reaction Date of Last Stent Placement:: 2013 Past Psychological History: No Psychological Hx Reported Smoking Status: Former smoker Past Alcohol Use History: None Reported Past Drug Use History: None Reported - Past Family History Father Family Medical History: Cancer, Diabetes Mellitus Additional Family Medical History / Comment(s): age 70 from lung cancer Mother Additional Family Medical History / Comment(s): age 83 emphysema Medications and Allergies Home Medications Medication Instructions Recorded Confirmed Type glipiZIDE [Glipizide ER] 10 mg PO BID 01/08/14 05/04/20 History Ferrous Sulfate [Iron (65 MG 325 mg PO DAILY 02/12/19 05/04/20 History Elemental)] Aspirin 81 mg PO DAILY #30 chew 07/01/19 05/04/20 Rx Ascorbic Acid [Vitamin C] 500 mg PO DAILY 03/25/20 05/04/20 History Enalapril Maleate [Vasotec] 5 mg PO BID 03/25/20 05/04/20 History L.acidoph,Paracasei, B.lactis 1 tab PO DAILY 03/25/20 05/04/20 History [Probiotic] Vitamin B Complex 1 cap PO DAILY 03/25/20 05/04/20 History Apixaban [Eliquis] 5 mg PO BID #60 tab 03/28/20 05/04/20 Rx Cholecalciferol [Vitamin D3 (25 50 mcg PO DAILY 04/14/20 05/04/20 History Mcg = 1000 Iu)] Amiodarone [Cordarone] 200 mg PO BID 04/22/20 05/04/20 History Furosemide [Lasix] 40 mg PO DAILY #0 tablet 04/25/20 05/04/20 Rx Potassium Chloride ER [K-Dur 20] 20 meq PO DAILY #90 tab 04/25/20 05/04/20 Rx Metoprolol Tartrate [Lopressor] 25 mg PO BID 05/04/20 05/04/20 History polyethylene glycoL 3350 [Miralax] 17 gm PO DAILY PRN 05/04/20 05/04/20 History Allergies Allergy/AdvReac Type Severity Reaction Status Date / Time Corticosteroids Allergy Unknown Unknown Verified 05/04/20 08:52 (Glucocorticoids) azithromycin [From Zithromax] Allergy Anaphylaxis Verified 05/04/20 08:52 banana Allergy Unknown Verified 05/04/20 08:52 carisoprodol [From Soma] Allergy Unknown Verified 05/04/20 08:52 ciprofloxacin [From Cipro] Allergy Unknown Verified 05/04/20 08:52 cortisone [Cortisone] Allergy Unknown Verified 05/04/20 08:52 cyclobenzaprine HCl Allergy Unknown Verified 05/04/20 08:52 [From Flexeril] egg Allergy Unknown Verified 05/04/20 08:52 latex Allergy Unknown Verified 05/04/20 08:52 Latex, Natural Rubber Allergy Unknown Verified 05/04/20 08:52 levofloxacin [From Levaquin] Allergy Anaphylaxis Verified 05/04/20 08:52 Penicillins Allergy Anaphylaxis Verified 05/04/20 08:52 Physical Exam Vitals: Vital Signs Temp Pulse Resp BP Pulse Ox 05/04/20 09:51 100.3 F H 72 18 145/51 98 05/04/20 08:11 98.9 F 73 18 145/89 99 Intake and Output 05/03/20 05/04/20 05/04/20 22:59 06:59 14:59 Other: Weight 77.111 kg PHYSICAL EXAMINATION: GENERAL: The patient is alert and oriented x3, is in mild respiratory distress. Well developed, well nourished. HEENT: Pupils are round and equally reacting to light. EOMI. No scleral icterus. No conjunctival pallor. Normocephalic, atraumatic. No pharyngeal erythema. No thyromegaly. CARDIOVASCULAR: S1 and S2 present. No murmurs, rubs, or gallops. Able to assess JVD PULMONARY: Chest is clear to auscultation, no wheezing or crackles. ABDOMEN: Soft, nontender, nondistended, normoactive bowel sounds. No palpable organomegaly. MUSCULOSKELETAL: No joint swelling or deformity. EXTREMITIES: No cyanosis, clubbing, or pedal edema. NEUROLOGICAL: Gross neurological examination did not reveal any focal deficits. SKIN: No rashes. Results CBC & Chem 7: 05/04/20 08:32 05/04/20 08:32 Labs: Abnormal Lab Results - Last 24 Hours (Table) 05/04/20 05/04/20 05/04/20 Range/Units 08:32 08:32 08:32 WBC 12.3 H (3.8-10.6) k/uL RBC 3.48 L (3.80-5.40) m/uL Hgb 9.7 L (11.4-16.0) gm/dL Hct 30.7 L (34.0-46.0) % RDW 15.7 H (11.5-15.5) % Plt Count 149 L (150-450) k/uL Neutrophils # 8.5 H (1.3-7.7) k/uL PT 12.4 H (9.0-12.0) sec INR 1.2 H (<1.2) Sodium 129 L (137-145) mmol/L Potassium 5.2 H (3.5-5.1) mmol/L Chloride 92 L (98-107) mmol/L BUN 41 H (7-17) mg/dL Creatinine 1.70 H (0.52-1.04) mg/dL Glucose 478 H (74-99) mg/dL Plasma Lactic Acid Jona (0.7-2.0) mmol/L 05/04/20 Range/Units 08:32 WBC (3.8-10.6) k/uL RBC (3.80-5.40) m/uL Hgb (11.4-16.0) gm/dL Hct (34.0-46.0) % RDW (11.5-15.5) % Plt Count (150-450) k/uL Neutrophils # (1.3-7.7) k/uL PT (9.0-12.0) sec INR (<1.2) Sodium (137-145) mmol/L Potassium (3.5-5.1) mmol/L Chloride (98-107) mmol/L BUN (7-17) mg/dL Creatinine (0.52-1.04) mg/dL Glucose (74-99) mg/dL Plasma Lactic Acid Jona 2.1 H* (0.7-2.0) mmol/L Assessment and Plan Plan: -Shortness of breath: Secondary to CONGESTIVE heart failure chronic systolic dysfunction EF of around 20-25% with acute exacerbation. Patient will be started on Lasix IV fluids were discontinued and patient does have minimal lactic acidosis this is secondary to hypoperfusion secondary to heart failure exacerbation rather than sepsis. Patient heart failure may have been frustrated with viral respiratory illness. Patient is negative for coVID and influenza. Patient was given a dose of Rocephin my suspicion is low for pneumonia lactic can you antibiotics patient will be just monitored without antibiotics she received her first dose today. 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
[2020-05-04 12:34] LABS: Glucose,Whole Blood 422 mg/dL (75-99)
--- NOTE | 2020-05-04 12:45 | P.CRDCN ---
History of Present Illness Consult date: 05/04/20 Chief complaint: Shortness of breath History of present illness: This is a 75-year-old female patient with requested to see as a consult in the o bservation unit for further evaluation off shortness of breath. The patient does have coronary artery disease and she underwent stenting of the LAD in 2018 and also prior stenting of the RCA, ischemic cardiomyopathy with an ejection fraction of 40-45% based on echocardiogram was performed in 2019, paroxysmal atrial fibrillation, as well as hypertension and dyslipidemia. 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 She did not have any symptoms of chest pain or chest discomfort. No lower extremities edema. She stated that she did have some cough but no fever or chills. No sputum production. The patient clearly stated that she was compliant with all of her medications including her oral diuretics. I'm not quite sure the patient is compliant with her medication and low salt diet. The chest x-ray showed findings consistent with heart failure. The EKG showed sinus rhythm with LBBB. The NT proBNP came in to be elevated at 8000. She does have mild hyperkalemia and also she is hyponatremic. She was given only one dose of Lasix in the emergency department. On examination she does have diminished breathing sounds bilaterally but I could not hear any crackles. No pitting edema noted. No clear-cut evidence of JVD seen on examination as well. Past Medical History Past Medical History: Atrial Fibrillation, Chest Pain / Angina, Diabetes Zaida litus, Hypertension, Myocardial Infarction ([place]), Osteoarthritis (OA), Pneumonia Additional Past Medical History / Comment(s): arthritis, 01-03-14 cardiac arrest/resp failure/mi post intubation came from [facility] to our medical lab assistant 01-07-14. Last Myocardial Infarction Date:: 01-03-14 History of Any Multi-Drug Resistant Organisms: None Reported Past Surgical History: Heart Catheterization With Stent Additional Past Surgical History / Comment(s): d&c, stent RCA 01-07-14, stent LA D 02/14/2019 Past Anesthesia/Blood Transfusion Reactions: No Reported Reaction Date of Last Stent Placement:: 2013 Past Psychological History: No Psychological Hx Reported Smoking Status: Former smoker Past Alcohol Use History: None Reported Past Drug Use History: None Reported - Past Family History Father Family Medical History: Cancer, Diabetes Mellitus Additional Family Medical History / Comment(s): age 70 from lung cancer Mother Additional Family Medical History / Comment(s): age 83 emphysema Medications and Allergies Home Medications Medication Instructions Recorded Confirmed Type glipiZIDE [Glipizide ER] 10 mg PO BID 01/08/14 05/04/20 History Ferrous Sulfate [Iron (65 MG 325 mg PO DAILY 02/12/19 05/04/20 History Elemental)] Aspirin 81 mg PO DAILY #30 chew 07/01/19 05/04/20 Rx Ascorbic Acid [Vitamin C] 500 mg PO DAILY 03/25/20 05/04/20 History Enalapril Maleate [Vasotec] 5 mg PO BID 03/25/20 05/04/20 History L.acidoph,Paracasei, B.lactis 1 tab PO DAILY 03/25/20 05/04/20 History [Probiotic] Vitamin B Complex 1 cap PO DAILY 03/25/20 05/04/20 History Apixaban [Eliquis] 5 mg PO BID #60 tab 03/28/20 05/04/20 Rx Cholecalciferol [Vitamin D3 (25 50 mcg PO DAILY 04/14/20 05/04/20 History Mcg = 1000 Iu)] Amiodarone [Cordarone] 200 mg PO BID 04/22/20 05/04/20 History Furosemide [Lasix] 40 mg PO DAILY #0 tablet 04/25/20 05/04/20 Rx Potassium Chloride ER [K-Dur 20] 20 meq PO DAILY #90 tab 04/25/20 05/04/20 Rx Metoprolol Tartrate [Lopressor] 25 mg PO BID 05/04/20 05/04/20 History polyethylene glycoL 3350 [Miralax] 17 gm PO DAILY PRN 05/04/20 05/04/20 History Allergies Allergy/AdvReac Type Severity Reaction Status Date / Time Corticosteroids Allergy Unknown Unknown Verified 05/04/20 08:52 (Glucocorticoids) azithromycin [From Zithromax] Allergy Anaphylaxis Verified 05/04/20 08:52 banana Allergy Unknown Verified 05/04/20 08:52 carisoprodol [From Soma] Allergy Unknown Verified 05/04/20 08:52 ciprofloxacin [From Cipro] Allergy Unknown Verified 05/04/20 08:52 cortisone [Cortisone] Allergy Unknown Verified 05/04/20 08:52 cyclobenzaprine HCl Allergy Unknown Verified 05/04/20 08:52 [From Flexeril] egg Allergy Unknown Verified 05/04/20 08:52 latex Allergy Unknown Verified 05/04/20 08:52 Latex, Natural Rubber Allergy Unknown Verified 05/04/20 08:52 levofloxacin [From Levaquin] Allergy Anaphylaxis Verified 05/04/20 08:52 Penicillins Allergy Anaphylaxis Verified 05/04/20 08:52 Physical Exam Vitals: Vital Signs Temp Pulse Pulse Resp BP BP Pulse Ox 05/04/20 12:02 98.3 F 63 18 102/55 97 05/04/20 11:27 99.1 F 76 18 124/84 99 05/04/20 09:51 100.3 F H 72 18 145/51 98 05/04/20 08:11 98.9 F 73 18 145/89 99 Intake and Output 05/03/20 05/04/20 05/04/20 22:59 06:59 14:59 Other: Weight 77.111 kg - Constitutional General appearance: no acute distress - Respiratory Respiratory: bilateral: diminished - Cardiovascular Rhythm: regular Heart sounds: normal: S1, S2 Abnormal Heart Sounds: systolic murmur Results 05/04/20 08:32 05/04/20 08:32 Cardiac Enzymes 05/04/20 05/04/20 Range/Units 08:32 08:32 AST 22 (14-36) U/L Troponin I <0.012 (0.000-0.034) ng/mL Coagulation 05/04/20 Range/Units 08:32 PT 12.4 H (9.0-12.0) sec APTT 24.9 (22.0-30.0) sec CBC 05/04/20 Range/Units 08:32 WBC 12.3 H (3.8-10.6) k/uL RBC 3.48 L (3.80-5.40) m/uL Hgb 9.7 L (11.4-16.0) gm/dL Hct 30.7 L (34.0-46.0) % Plt Count 149 L (150-450) k/uL Comprehensive Metabolic Panel 05/04/20 Range/Units 08:32 Sodium 129 L (137-145) mmol/L Potassium 5.2 H (3.5-5.1) mmol/L Chloride 92 L (98-107) mmol/L Carbon Dioxide 23 (22-30) mmol/L BUN 41 H (7-17) mg/dL Creatinine 1.70 H (0.52-1.04) mg/dL Glucose 478 H (74-99) mg/dL Calcium 9.2 (8.4-10.2) mg/dL AST 22 (14-36) U/L ALT 19 (4-34) U/L Alkaline Phosphatase 84 (38-126) U/L Total Protein 6.5 (6.3-8.2) g/dL Albumin 3.8 (3.5-5.0) g/dL Current Medications Generic Name Dose Route Start Last Admin Trade Name Freq PRN Reason Stop Dose Admin Amiodarone HCl 200 mg 05/05/20 09:00 Amiodarone 200 Mg Tab PO DAILY GARRY Apixaban 5 mg 05/04/20 21:00 Apixaban 5 Mg Tab PO BID GARRY Aspirin 81 mg 05/05/20 09:00 Aspirin 81 Mg PO DAILY [facility] Furosemide 40 mg 05/04/20 21:00 Furosemide 10 Mg/Ml 4 Ml Vial IV BID [facility] Metoprolol Tartrate 25 mg 05/04/20 21:00 Metoprolol Tartrate 25 Mg Tab PO BID GARRY Naloxone HCl 0.2 mg 05/04/20 10:23 Naloxone 0.4 Mg/Ml 1 Ml Vial IV Q2M PRN Opioid Reversal Intake and Output 05/03/20 05/04/20 05/04/20 22:59 06:59 14:59 Other: Weight 77.111 kg Patient Weight 05/05/20 06:59 Weight 77.111 kg 05/04/20 08:32 05/04/20 08:32 Assessment and Plan Assessment: Assessment #1 shortness of breath likely to be multi-factorial related to possibly pneumonia along with mitral regurgitation with possible component of heart failure #2 possible underlying pneumonia #3 valvular heart disease with mitral regurgitation #4 cardiomyopathy, ischemic, with EF between 40-45% #5 paroxysmal atrial fibrillation #6 coronary artery disease and prior revascularization Plan #1 the patient doesn't seem to be in overt congestive heart failure at this point. #2 she was given one dose of Lasix IV in the emergency department #3 I would agree to hold any further IV Lasix at this point #4 possibly restart the patient on Lasix by mouth tomorrow #5 continue monitor the kidney function and electrolytes #6 follow-up with the patient
[2020-05-04] MEDS ORDERED: DEXTROSE 5% IN WATER 100 ML with AMIODARONE 150 MG IV ONE (16:45)
[2020-05-04] MEDS ORDERED: AMIODARONE 360 MG in DEXTROSE 5% IN WATER 200 ML IV ONE ×2 (17:00)
[2020-05-04 17:04] LABS: Glucose,Whole Blood 509 mg/dL (75-99)
[2020-05-04] MEDS: INSULIN ASPART (NovoLOG) 100 UNIT/ML VIAL SQ SCH ×2 (17:29→20:57)
[2020-05-04 20:25] LABS: Glucose,Whole Blood 436 mg/dL (75-99)
[2020-05-04] MEDS: APIXABAN 5 MG TAB PO SCH (20:56)
[2020-05-04] MEDS: FUROSEMIDE 10 MG/ML 4 ML VIAL IV SCH (20:57)
[2020-05-04] MEDS ORDERED: AMIODARONE 200 MG TAB PO SCH (21:00)
[2020-05-04] MEDS ORDERED: AMIODARONE 450 MG in DEXTROSE 5% IN WATER 250 ML IV SCH ×2 (23:00)
[2020-05-04] MEDS: METOPROLOL TARTRATE 25 MG TAB PO SCH (23:34)
[2020-05-05] MEDS: ACETAMINOPHEN TAB 325 MG TAB PO PRN (05:52)
[2020-05-05 06:08] LABS: Glucose,Whole Blood 77 mg/dL (75-99)
[2020-05-05] MEDS: INSULIN ASPART (NovoLOG) 100 UNIT/ML VIAL SQ SCH ×4 (06:09→20:27)
[2020-05-05 07:51] LABS: Anisocytosis Slight; HCT 26.5 % (34.0-46.0); HGB 8.8 gm/dL (11.4-16.0); Hypochromasia Slight; MCH 28.7 pg (25.0-35.0); MCV 87.1 fL (80.0-100.0); Platelet Count 110 k/uL (150-450); RBC 3.04 m/uL (3.80-5.40); RDW 16.4 % (11.5-15.5); WBC 6.6 k/uL (3.8-10.6)
[2020-05-05 08:10] LABS: Calcium 8.5 mg/dL (8.4-10.2); Magnesium 1.8 mg/dL (1.6-2.3); Potassium 4.3 mmol/L (3.5-5.1)
--- NOTE | 2020-05-05 08:19 | P.PN ---
Subjective Progress Note Date: 05/05/20 Principal diagnosis: The patient was admitted again for acute exacerbation. Heart failure. Shortness breath and orthopnea was noted. The patient is sitting up in chair comfortably voiding difficulties Patient's current diet. No overt chest pressure stated. Objective - Vital Signs Vital signs: Vital Signs Temp 98.0 F 05/05/20 04:14 Pulse 101 H 05/05/20 04:14 Resp 16 05/05/20 04:14 BP 101/51 05/05/20 04:14 Pulse Ox 96 05/05/20 04:14 Intake & Output 05/04/20 05/05/20 05/05/20 18:59 06:59 18:59 Intake Total 900 Balance 900 Weight 77.111 kg 85 kg Intake: Oral 900 Other: Voiding Method Toilet Toilet # Voids 1 0 # Bowel Movements 0 - Constitutional General appearance: Present: average body habitus - EENT Eyes: Absent: abnormal pupil - Neck Neck: Absent: lymphadenopathy - Respiratory Respiratory: bilateral: CTA - Cardiovascular Rhythm: regular Heart sounds: normal: S1, S2 Abnormal Heart Sounds: Absent: S3 Gallop - Gastrointestinal General gastrointestinal: Present: soft. Absent: tenderness - Integumentary Integumentary Comment(s): Trace edema noted Integumentary: Present: normal - Labs CBC & Chem 7: 05/05/20 07:39 05/05/20 07:39 Labs: Abnormal Lab Results - Last 24 Hours (Table) 05/04/20 05/04/20 05/04/20 Range/Units 08:32 08:32 08:32 WBC 12.3 H (3.8-10.6) k/uL RBC 3.48 L (3.80-5.40) m/uL Hgb 9.7 L (11.4-16.0) gm/dL Hct 30.7 L (34.0-46.0) % RDW 15.7 H (11.5-15.5) % Plt Count 149 L (150-450) k/uL Neutrophils # 8.5 H (1.3-7.7) k/uL PT 12.4 H (9.0-12.0) sec INR 1.2 H (<1.2) Sodium 129 L (137-145) mmol/L Potassium 5.2 H (3.5-5.1) mmol/L Chloride 92 L (98-107) mmol/L BUN 41 H (7-17) mg/dL Creatinine 1.70 H (0.52-1.04) mg/dL Glucose 478 H (74-99) mg/dL POC Glucose (mg/dL) (75-99) mg/dL Plasma Lactic Acid Jona (0.7-2.0) mmol/L 05/04/20 05/04/20 05/04/20 Range/Units 08:32 12:32 17:03 WBC (3.8-10.6) k/uL RBC (3.80-5.40) m/uL Hgb (11.4-16.0) gm/dL Hct (34.0-46.0) % RDW (11.5-15.5) % Plt Count (150-450) k/uL Neutrophils # (1.3-7.7) k/uL PT (9.0-12.0) sec INR (<1.2) Sodium (137-145) mmol/L Potassium (3.5-5.1) mmol/L Chloride (98-107) mmol/L BUN (7-17) mg/dL Creatinine (0.52-1.04) mg/dL Glucose (74-99) mg/dL POC Glucose (mg/dL) 422 H 509 H (75-99) mg/dL Plasma Lactic Acid Jona 2.1 H* (0.7-2.0) mmol/L 05/04/20 05/05/20 05/05/20 Range/Units 20:24 07:39 07:39 WBC (3.8-10.6) k/uL RBC 3.04 L (3.80-5.40) m/uL Hgb 8.8 L (11.4-16.0) gm/dL Hct 26.5 L (34.0-46.0) % RDW 16.4 H (11.5-15.5) % Plt Count 110 L (150-450) k/uL Neutrophils # (1.3-7.7) k/uL PT (9.0-12.0) sec INR (<1.2) Sodium 131 L (137-145) mmol/L Potassium (3.5-5.1) mmol/L Chloride 97 L (98-107) mmol/L BUN 50 H (7-17) mg/dL Creatinine 1.99 H (0.52-1.04) mg/dL Glucose (74-99) mg/dL POC Glucose (mg/dL) 436 H (75-99) mg/dL Plasma Lactic Acid Jona (0.7-2.0) mmol/L Assessment and Plan Plan: Continue diuresis. Appreciate cardiology input Check CBC and CMP in a.m. Time with Patient: Less than 30
[2020-05-05] MEDS: LACTOBACILLUS ACIDOPH & BULGAR 1 EACH PACKET PO SCH (08:35)
[2020-05-05] MEDS: ASPIRIN 81 MG PO SCH (08:35)
[2020-05-05] MEDS: METOPROLOL TARTRATE 25 MG TAB PO SCH ×2 (08:35→20:26)
[2020-05-05] MEDS: POTASSIUM CHLORIDE ER 20 MEQ TAB.ER PO SCH (08:35)
[2020-05-05] MEDS: ASCORBIC ACID 500 MG TAB PO SCH (08:35)
[2020-05-05] MEDS: CHOLECALCIFEROL 25 MCG (1000 IU) TABLET PO SCH (08:35)
[2020-05-05] MEDS: FUROSEMIDE 10 MG/ML 4 ML VIAL IV SCH (08:35)
[2020-05-05] MEDS: FERROUS SULFATE 325 MG TAB PO SCH (08:36)
[2020-05-05] MEDS: APIXABAN 5 MG TAB PO SCH ×2 (08:36→20:26)
[2020-05-05] MEDS: lisinopriL 20 MG TAB PO SCH (08:36)
[2020-05-05] MEDS ORDERED: AMIODARONE 200 MG TAB PO SCH (09:00)
[2020-05-05] MEDS ORDERED: NON FORMULARY DRUG (Vitamin B Complex [Vitamin B Complex] 1 EACH Capsule) PO SCH (09:00)
--- NOTE | 2020-05-05 11:30 | P.PN ---
Subjective This is a pleasant 75-year-old female past medical history significant for hypertension, dyslipidemia, diabetes mellitus, COPD, coronary artery disease status post PCI to the LAD 2019 and previous PCI of the RCA, ischemic cardiomyopathy, chronic systolic congestive heart failure and paroxysmal atrial fibrillation. She follows in the office with Dr. Art. She went into atrial fibrillation yesterday and was initiated on IV amiodarone infusion. She has converted this morning back to sinus mechanism. She is seen and examined sittin g up in the chair in no acute distress. Overall she states she continues to feel tired, weak and just not herself. She has no complaints of chest pain, shortness of breath, dizziness or palpitations. Blood pressure 112/56 heart rate 62 afebrile maintaining oxygen saturation on room air. Laboratory data reviewed, WBC 6.6, hemoglobin 8.8, platelets 110, sodium 131, potassium 4.3, creatinine 1.99 and magnesium 1.8. Currently maintained on an IV amiodarone infusion, Eliquis 5 mg twice a day, aspirin 81 mg daily, Lasix 40 mg IV BID, lisinopril 20 mg daily and Lopressor 25 mg twice a day. Repeat EKG this morning revealed sinus mechanism with left bundle branch block. GENERAL: Well-appearing, well-nourished and in no acute distress. NECK: Supple without JVD or thyromegaly. LUNGS: Breath sounds clear to auscultation bilaterally. Respiration equal and unlabored. No wheezes, rales or rhonchi. HEART: Regular rate and rhythm without systolic ejection murmur at the base, no rubs or gallops. S1 and S2 heard. EXTREMITIES: Normal range of motion, no edema. No clubbing or cyanosis. Peripheral pulses intact. ASSESSMENT Acute on chronic systolic heart failure Paroxysmal atrial fibrillation, converted back to SR Valvular heart disease, mitral regurgitation Coronary artery disease status post PCI Hypertension Dyslipidemia Diabetes mellitus COPD PLAN Transitioned to oral amiodarone, 400 mg twice a day. Discontinue IV Lasix and initiate 40 mg by mouth twice a day. Initiate atorvastatin 40 mg daily. Pt may benefit from BiV pacemaker implantation to improve her symptoms of heart failure given her frequent admissions, systolic heart failure and left bundle branch block. This can be further evaluated as an outpatient with Dr. Art. Further recommendations to follow based on clinical course. Nurse Practitioner note has been reviewed, I agree with a documented findings and plan of care. Patient was seen and examined. Objective - Vital Signs Vital signs: Vital Signs Temp 97.8 F 05/05/20 08:41 Pulse 62 05/05/20 08:41 Resp 18 05/05/20 08:41 BP 112/56 05/05/20 08:41 Pulse Ox 96 05/05/20 08:41 Intake & Output 05/04/20 05/05/20 05/05/20 18:59 06:59 18:59 Intake Total 900 Balance 900 Weight 77.111 kg 85 kg Intake: Oral 900 Other: Voiding Method Toilet Toilet # Voids 1 0 # Bowel Movements 0 - Labs CBC & Chem 7: 05/05/20 07:39 05/05/20 07:39 Labs: Abnormal Lab Results - Last 24 Hours (Table) 05/04/20 05/04/20 05/04/20 Range/Units 12:32 17:03 20:24 RBC (3.80-5.40) m/uL Hgb (11.4-16.0) gm/dL Hct (34.0-46.0) % RDW (11.5-15.5) % Plt Count (150-450) k/uL Sodium (137-145) mmol/L Chloride (98-107) mmol/L BUN (7-17) mg/dL Creatinine (0.52-1.04) mg/dL POC Glucose (mg/dL) 422 H 509 H 436 H (75-99) mg/dL 05/05/20 05/05/20 Range/Units 07:39 07:39 RBC 3.04 L (3.80-5.40) m/uL Hgb 8.8 L (11.4-16.0) gm/dL Hct 26.5 L (34.0-46.0) % RDW 16.4 H (11.5-15.5) % Plt Count 110 L (150-450) k/uL Sodium 131 L (137-145) mmol/L Chloride 97 L (98-107) mmol/L BUN 50 H (7-17) mg/dL Creatinine 1.99 H (0.52-1.04) mg/dL POC Glucose (mg/dL) (75-99) mg/dL
[2020-05-05 12:19] LABS: Glucose,Whole Blood 277 mg/dL (75-99)
[2020-05-05 14:51] LABS: Hemoglobin A1C 7.6 % (4.0-6.0)
[2020-05-05 16:19] VITALS: BMI 36.6
[2020-05-05] MEDS: FUROSEMIDE 40 MG TAB PO SCH (16:53)
[2020-05-05 16:58] LABS: Glucose,Whole Blood 399 mg/dL (75-99)
[2020-05-05 20:19] LABS: Glucose,Whole Blood 316 mg/dL (75-99)
[2020-05-05] MEDS: AMIODARONE 200 MG TAB PO SCH (20:26)
[2020-05-05 23:37] VITALS: TEMP 98.1
[2020-05-06 06:25] LABS: Glucose,Whole Blood 70 mg/dL (75-99)
[2020-05-06] MEDS: INSULIN ASPART (NovoLOG) 100 UNIT/ML VIAL SQ SCH ×2 (06:28→12:06)
[2020-05-06 06:54] VITALS: BP 134/76; PULSE 62; RESP 16
[2020-05-06] MEDS: ACETAMINOPHEN TAB 325 MG TAB PO PRN (06:56)
--- NOTE | 2020-05-06 07:49 | P.PN ---
Subjective Principal diagnosis: The patient was admitted again for acute exacerbation. Heart failure. Shortness breath and orthopnea was noted. The patient is sitting up in chair comfortably voiding difficulties The patient is resting comfortably today. No chest pain or SOB stated Objective - Vital Signs Vital signs: Vital Signs Temp 98.1 F 05/06/20 04:17 Pulse 62 05/06/20 04:17 Resp 16 05/06/20 04:17 BP 134/76 05/06/20 04:17 Pulse Ox 97 05/06/20 04:17 Intake & Output 05/05/20 05/06/20 05/06/20 18:59 06:59 18:59 Intake Total 240 Balance 240 Weight 85 kg 84.5 kg Intake: Oral 240 Other: Voiding Method Toilet # Voids 1 1 1 # Bowel Movements 0 - Constitutional General appearance: Present: cooperative - EENT Eyes: Absent: abnormal pupil - Neck Neck: Absent: lymphadenopathy Thyroid: bilateral: normal size - Respiratory Respiratory: bilateral: diminished - Cardiovascular Rhythm: regular Heart sounds: normal: S1, S2 Abnormal Heart Sounds: Absent: S3 Gallop - Gastrointestinal General gastrointestinal: Present: soft - Neurologic Neurologic: Present: CNII-XII intact - Labs CBC & Chem 7: 05/05/20 07:39 05/05/20 07:39 Labs: Abnormal Lab Results - Last 24 Hours (Table) 05/05/20 05/05/20 05/05/20 Range/Units 07:39 07:39 07:39 RBC 3.04 L (3.80-5.40) m/uL Hgb 8.8 L (11.4-16.0) gm/dL Hct 26.5 L (34.0-46.0) % RDW 16.4 H (11.5-15.5) % Plt Count 110 L (150-450) k/uL Sodium 131 L (137-145) mmol/L Chloride 97 L (98-107) mmol/L BUN 50 H (7-17) mg/dL Creatinine 1.99 H (0.52-1.04) mg/dL POC Glucose (mg/dL) (75-99) mg/dL Hemoglobin A1c 7.6 H (4.0-6.0) % 05/05/20 05/05/20 05/05/20 Range/Units 12:14 16:45 19:57 RBC (3.80-5.40) m/uL Hgb (11.4-16.0) gm/dL Hct (34.0-46.0) % RDW (11.5-15.5) % Plt Count (150-450) k/uL Sodium (137-145) mmol/L Chloride (98-107) mmol/L BUN (7-17) mg/dL Creatinine (0.52-1.04) mg/dL POC Glucose (mg/dL) 277 H 399 H 316 H (75-99) mg/dL Hemoglobin A1c (4.0-6.0) % 05/06/20 Range/Units 06:15 RBC (3.80-5.40) m/uL Hgb (11.4-16.0) gm/dL Hct (34.0-46.0) % RDW (11.5-15.5) % Plt Count (150-450) k/uL Sodium (137-145) mmol/L Chloride (98-107) mmol/L BUN (7-17) mg/dL Creatinine (0.52-1.04) mg/dL POC Glucose (mg/dL) 70 L (75-99) mg/dL Hemoglobin A1c (4.0-6.0) % Assessment and Plan (1) CHF exacerbation Current Visit: Yes Status: Acute Code(s): I50.9 - HEART FAILURE, UNSPECIFIED SNOMED Code(s): 729804915 (2) Atrial fibrillation Current Visit: No Status: Acute Code(s): I48.91 - UNSPECIFIED ATRIAL FIBRILLATION SNOMED Code(s): 64760725 Plan: Continue diuresis. Appreciate cardiology input Check CBC and CMP in a.m. DM is stable DC hopefully in the next 24 hours. Noncompliance addressed with the patient
[2020-05-06] MEDS: CHOLECALCIFEROL 25 MCG (1000 IU) TABLET PO SCH (08:22)
[2020-05-06] MEDS: APIXABAN 5 MG TAB PO SCH (08:22)
[2020-05-06] MEDS: POTASSIUM CHLORIDE ER 20 MEQ TAB.ER PO SCH (08:22)
[2020-05-06] MEDS: AMIODARONE 200 MG TAB PO SCH (08:22)
[2020-05-06] MEDS: FUROSEMIDE 40 MG TAB PO SCH (08:22)
[2020-05-06] MEDS: FERROUS SULFATE 325 MG TAB PO SCH (08:22)
[2020-05-06] MEDS: METOPROLOL TARTRATE 25 MG TAB PO SCH (08:22)
[2020-05-06] MEDS: ATORVASTATIN 40 MG TAB PO SCH ×2 (08:22→08:27)
[2020-05-06] MEDS: LACTOBACILLUS ACIDOPH & BULGAR 1 EACH PACKET PO SCH (08:23)
[2020-05-06] MEDS: ASCORBIC ACID 500 MG TAB PO SCH (08:23)
[2020-05-06] MEDS: lisinopriL 20 MG TAB PO SCH (08:23)
[2020-05-06] MEDS: ASPIRIN 81 MG PO SCH (08:23)
[2020-05-06 08:49] LABS: Calcium 8.5 mg/dL (8.4-10.2); Potassium 4.3 mmol/L (3.5-5.1)
--- NOTE | 2020-05-06 11:11 | P.DS ---
Providers Date of admission: 05/04/20 10:43 Attending physician: Last Barrios Consults: 05/04/20 10:25 Consult Physician Routine Consulting Provider: Aaron Benavidez Consult Reason/Comments: chf exacerbation,dyspnea Do you want consulting provider notified?: Yes Primary care physician: Last Barrios - Discharge Diagnosis(es) (1) CHF exacerbation Current Visit: Yes Status: Acute (2) Atrial fibrillation Current Visit: No Status: Acute Hospital Course: This is discharge summary 75-year-old white female essentially admitted for exacerbation of congestive heart failure. The patient was admitted for recurrent atrial fibrillation and heart failure. Stabilized. The patient has a history of noncompliance with treatment for CHF. We reiterated necessary need for compliance. She is discharged in stable condition to follow-up 2 days Patient Condition at Discharge: Stable Plan - Discharge Summary Discharge Rx Participant: No New Discharge Prescriptions: New Atorvastatin [Lipitor] 40 mg PO DAILY #30 tab Continue glipiZIDE [Glipizide ER] 10 mg PO BID Ferrous Sulfate [Iron (65 MG Elemental)] 325 mg PO DAILY Aspirin 81 mg PO DAILY #30 chew Vitamin B Complex 1 cap PO DAILY Ascorbic Acid [Vitamin C] 500 mg PO DAILY Enalapril Maleate [Vasotec] 5 mg PO BID Fany Pitts B.lactis [Probiotic] 1 tab PO DAILY Apixaban [Eliquis] 5 mg PO BID #60 tab Cholecalciferol [Vitamin D3 (25 Mcg = 1000 Iu)] 50 mcg PO DAILY Amiodarone [Cordarone] 200 mg PO BID Potassium Chloride ER [K-Dur 20] 20 meq PO DAILY #90 tab Furosemide [Lasix] 40 mg PO DAILY #0 tablet Metoprolol Tartrate [Lopressor] 25 mg PO BID polyethylene glycoL 3350 [Miralax] 17 gm PO DAILY PRN PRN Reason: Constipation Discharge Medication List glipiZIDE [Glipizide ER] 10 mg PO BID 01/08/14 [History] Ferrous Sulfate [Iron (65 MG Elemental)] 325 mg PO DAILY 02/12/19 [History] Aspirin 81 mg PO DAILY #30 chew 07/01/19 [Rx] Ascorbic Acid [Vitamin C] 500 mg PO DAILY 03/25/20 [History] Enalapril Maleate [Vasotec] 5 mg PO BID 03/25/20 [History] L.acidoph,Paracasei, B.lactis [Probiotic] 1 tab PO DAILY 03/25/20 [History] Vitamin B Complex 1 cap PO DAILY 03/25/20 [History] Apixaban [Eliquis] 5 mg PO BID #60 tab 03/28/20 [Rx] Cholecalciferol [Vitamin D3 (25 Mcg = 1000 Iu)] 50 mcg PO DAILY 04/14/20 [Histor y] Amiodarone [Cordarone] 200 mg PO BID 04/22/20 [History] Furosemide [Lasix] 40 mg PO DAILY #0 tablet 04/25/20 [Rx] Potassium Chloride ER [K-Dur 20] 20 meq PO DAILY #90 tab 04/25/20 [Rx] Metoprolol Tartrate [Lopressor] 25 mg PO BID 05/04/20 [History] polyethylene glycoL 3350 [Miralax] 17 gm PO DAILY PRN 05/04/20 [History] Atorvastatin [Lipitor] 40 mg PO DAILY #30 tab 05/06/20 [Rx] Follow up Appointment(s)/Referral(s): Janice Art MD [STAFF PHYSICIAN] - 2 Weeks Last Barrios MD [Primary Care Provider] - 1-2 days Keenan Travis MD [REFERRING] - Discharge Disposition: HOME WITH HOME HEALTH SERVICES
[2020-05-06 11:30] LABS: Glucose,Whole Blood 344 mg/dL (75-99)
--- NOTE | 2020-05-06 14:04 | P.PN ---
Subjective This is a pleasant 75-year-old female past medical history significant for hypertension, dyslipidemia, diabetes mellitus, COPD, coronary artery disease status post PCI to the LAD 2019 and previous PCI of the RCA, ischemic cardiomyopathy, chronic systolic congestive heart failure and paroxysmal atrial fibrillation. She follows in the office with Dr. Art. She went into atrial fibrillation yesterday and was initiated on IV amiodarone infusion. She has converted this morning back to sinus mechanism. She is seen and examined sittin g up in the chair in no acute distress. Overall she states she continues to feel tired, weak and just not herself. She has no complaints of chest pain, shortness of breath, dizziness or palpitations. Blood pressure 112/56 heart rate 62 afebrile maintaining oxygen saturation on room air. Laboratory data reviewed, WBC 6.6, hemoglobin 8.8, platelets 110, sodium 131, potassium 4.3, creatinine 1.99 and magnesium 1.8. Currently maintained on an IV amiodarone infusion, Eliquis 5 mg twice a day, aspirin 81 mg daily, Lasix 40 mg IV BID, lisinopril 20 mg daily and Lopressor 25 mg twice a day. Repeat EKG this morning revealed sinus mechanism with left bundle branch block. 05/06/2020 Patient seen and examined sitting up in the recliner in no acute distress. She denies any worsening shortness of breath. She feels stable back to baseline. She has no chest pain, dizziness or palpitations. Telemetry tracings indicate she is maintaining sinus mechanism. Blood pressure 134/76 heart rate 62 af ebrile maintaining oxygen saturation on room air. Laboratory data reviewed, sodium 132, potassium 4.3, creatinine 1.83. GENERAL: Well-appearing, well-nourished and in no acute distress. NECK: Supple without JVD or thyromegaly. LUNGS: Breath sounds clear to auscultation bilaterally. Respiration equal and unlabored. No wheezes, rales or rhonchi. HEART: Regular rate and rhythm without systolic ejection murmur at the base, no rubs or gallops. S1 and S2 heard. EXTREMITIES: Normal range of motion, no edema. No clubbing or cyanosis. Peripheral pulses intact. ASSESSMENT Acute on chronic systolic heart failure Paroxysmal atrial fibrillation, converted back to SR Valvular heart disease, mitral regurgitation Coronary artery disease status post PCI Hypertension Dyslipidemia Diabetes mellitus COPD PLAN Stable for discharge from a cardiac perspective. Lengthy discussion with the patient regarding possible implantation of BiV pacemaker. This will be further discussed with Dr. Chavez in the office. Amiodarone 200 mg BID on discharge and then 200 mg daily in 1-week. Nurse Practitioner note has been reviewed, I agree with a documented findings and plan of care. Patient was seen and examined. Objective - Vital Signs Vital signs: Vital Signs Temp 98.1 F 05/06/20 04:17 Pulse 62 05/06/20 04:17 Resp 16 05/06/20 04:17 BP 134/76 05/06/20 04:17 Pulse Ox 97 05/06/20 08:27 Intake & Output 05/05/20 05/06/20 05/06/20 18:59 06:59 18:59 Intake Total 240 Balance 240 Weight 85 kg 84.5 kg Intake: Oral 240 Other: Voiding Method Toilet # Voids 1 1 1 # Bowel Movements 0 - Labs CBC & Chem 7: 05/05/20 07:39 05/06/20 07:45 Labs: Abnormal Lab Results - Last 24 Hours (Table) 05/05/20 05/05/20 05/05/20 Range/Units 07:39 16:45 19:57 Sodium (137-145) mmol/L BUN (7-17) mg/dL Creatinine (0.52-1.04) mg/dL Glucose (74-99) mg/dL POC Glucose (mg/dL) 399 H 316 H (75-99) mg/dL Hemoglobin A1c 7.6 H (4.0-6.0) % 05/06/20 05/06/20 05/06/20 Range/Units 06:15 07:45 11:27 Sodium 132 L (137-145) mmol/L BUN 50 H (7-17) mg/dL Creatinine 1.83 H (0.52-1.04) mg/dL Glucose 63 L (74-99) mg/dL POC Glucose (mg/dL) 70 L 344 H (75-99) mg/dL Hemoglobin A1c (4.0-6.0) %
== END 2020-05-06 16:15 | disposition home health service (06) ==
LOC: EC 08:10 → 6NMEDSUR 10:43 → 3SCARD 17:52
PROVIDERS: ADMIT Family Medicine; ATTEND Family Medicine
DX: I13.0 Hypertensive heart and chronic kidney disease with heart failure and stage 1 through stage 4 chronic kidney disease, or unspecified chronic kidney disease (principal); I50.23 Acute on chronic systolic (congestive) heart failure; E11.22 Type 2 diabetes mellitus with diabetic chronic kidney disease; E11.21 Type 2 diabetes mellitus with diabetic nephropathy; E11.65 Type 2 diabetes mellitus with hyperglycemia; N18.30 Chronic kidney disease, stage 3 unspecified; J44.9 Chronic obstructive pulmonary disease, unspecified; I48.0 Paroxysmal atrial fibrillation; D64.9 Anemia, unspecified; R50.9 Fever, unspecified; E87.2 Acidosis; E87.1 Hypo-osmolality and hyponatremia; N17.9 Acute kidney failure, unspecified; M19.90 Unspecified osteoarthritis, unspecified site; I25.2 Old myocardial infarction; E87.5 Hyperkalemia; I25.10 Atherosclerotic heart disease of native coronary artery without angina pectoris; I25.5 Ischemic cardiomyopathy; I34.0 Nonrheumatic mitral (valve) insufficiency; I44.7 Left bundle-branch block, unspecified; E78.5 Hyperlipidemia, unspecified; K59.00 Constipation, unspecified; Z79.899 Other long term (current) drug therapy; Z88.1 Allergy status to other antibiotic agents; Z91.012 Allergy to eggs; Z91.040 Latex allergy status; Z88.0 Allergy status to penicillin; Z88.8 Allergy status to other drugs, medicaments and biological substances; Z91.018 Allergy to other foods; Z87.01 Personal history of pneumonia (recurrent); Z86.74 Personal history of sudden cardiac arrest; Z95.5 Presence of coronary angioplasty implant and graft; Z87.891 Personal history of nicotine dependence; Z79.82 Long term (current) use of aspirin; Z79.01 Long term (current) use of anticoagulants; Z82.5 Family history of asthma and other chronic lower respiratory diseases; Z80.1 Family history of malignant neoplasm of trachea, bronchus and lung; Z83.3 Family history of diabetes mellitus; Z20.822 Contact with and (suspected) exposure to COVID-19
CPT/HCPCS: 96375 ×2; 96376 ×2; 96365; 96366; 93005 ×2; 99285; 36415; 94760; 83880; 80053; 80048 ×2; 82009; 83605; 83735 ×2; 84484; 85025; 85027; 85610; 85730; 82272; 87502; 83036; 87635; 71046; G0378 ×4; J2060; J1940 ×2; J0282 ×2; J2405; J0696

== ENCOUNTER 2020-07-10 15:47 | Inpatient (IN) | payer MEDICARE, OTHER ==
[2020-07-10 15:59] LABS: Glucose,Whole Blood >600 mg/dL (75-99)
--- NOTE | 2020-07-10 16:10 | ED ---
General Adult HPI - General Chief complaint: Recheck/Abnormal Lab/Rx Stated complaint: near syncope/low BP/high blood surgar Time Seen by Provider: 07/10/20 15:59 Source: patient, EMS Mode of arrival: EMS Limitations: no limitations - History of Present Illness Initial comments: 75-year-old female with history of diabetes, COPD presents to emergency [facility] with a chief complaint of high blood sugar. Patient reports she used to take oral glipizide but it does not seem to be working and more so for the past month she was switched to rybelsus instead of insulin. Patient reports this does not seem to be working. States she had her dose increased from 3 mg to 7 mg recently. Patient reports today she was baking food and using a walker to go to the table when her legs gave out and she went down to the ground. Patient reports she was able to near the hole and call for help. Patient was brought to the ED via EMS. Per EMS report, supposedly the patient had bilateral dilated pupils and was hypotensive with 90/65. Also had a high glucose reading. Patient states she was at the food and drug inspector earlier today saw her pupils are dilated because of the medication use for dilation. Patient denies any urinary or vaginal symptoms. Denies abdominal pain nausea vomiting diarrhea. Denies any respiratory symptoms chest pain or shortness of breath. She denies any head injuries. - Related Data Home Medications Medication Instructions Recorded Confirmed Ferrous Sulfate [Iron (65 MG 325 mg PO DAILY 02/12/19 07/10/20 Elemental)] Ascorbic Acid [Vitamin C] 500 mg PO DAILY 03/25/20 07/10/20 Enalapril Maleate [Vasotec] 5 mg PO BID 03/25/20 07/10/20 L.acidoph,Paracasei, B.lactis 1 tab PO DAILY 03/25/20 07/10/20 [Probiotic] Vitamin B Complex 1 cap PO DAILY 03/25/20 07/10/20 Cholecalciferol [Vitamin D3 (25 50 mcg PO DAILY 04/14/20 07/10/20 Mcg = 1000 Iu)] Amiodarone [Cordarone] 200 mg PO DAILY 04/22/20 07/10/20 Metoprolol Tartrate [Lopressor] 50 mg PO BID 05/04/20 07/10/20 Furosemide [Lasix] 40 mg PO BID 07/10/20 07/10/20 Diane 500 mg PO DAILY 07/10/20 07/10/20 Inulin/Chromium Picolinate [Fiber 3 tab PO DAILY 07/10/20 07/10/20 Gummies Chew] Semaglutide [Rybelsus] 7 mg PO DAILY 07/10/20 07/10/20 Previous Rx's Medication Instructions Recorded Aspirin 81 mg PO DAILY #30 chew 07/01/19 Apixaban [Eliquis] 5 mg PO BID #60 tab 03/28/20 Potassium Chloride ER [K-Dur 20] 20 meq PO DAILY #90 tab 04/25/20 Allergies Allergy/AdvReac Type Severity Reaction Status Date / Time Corticosteroids Allergy Unknown Unknown Verified 07/10/20 17:58 (Glucocorticoids) egg Allergy Unknown Unknown Verified 07/10/20 17:58 azithromycin [From Zithromax] Allergy Anaphylaxis Verified 07/10/20 17:58 banana Allergy Unknown Verified 07/10/20 17:58 carisoprodol [From Soma] Allergy Unknown Verified 07/10/20 17:58 ciprofloxacin [From Cipro] Allergy Unknown Verified 07/10/20 17:58 cortisone [Cortisone] Allergy Unknown Verified 07/10/20 17:58 cyclobenzaprine HCl Allergy Unknown Verified 07/10/20 17:58 [From Flexeril] latex Allergy Unknown Verified 07/10/20 17:58 Latex, Natural Rubber Allergy Unknown Verified 07/10/20 17:58 levofloxacin [From Levaquin] Allergy Anaphylaxis Verified 07/10/20 17:58 Penicillins Allergy Anaphylaxis Verified 07/10/20 17:58 Review of Systems ROS Statement: Those systems with pertinent positive or pertinent negative responses have been documented in the HPI. ROS Other: All systems not noted in ROS Statement are negative. 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 Last Myocardial Infarction Date:: 01-03-14 History of Any Multi-Drug Resistant Organisms: None Reported Past Surgical History: Heart Catheterization With Stent Additional Past Surgical History / Comment(s): d&c, stent RCA 01-07-14, stent LAD 02/14/2019 Past Anesthesia/Blood Transfusion Reactions: No Reported Reaction Date of Last Stent Placement:: 2013 Past Psychological History: No Psychological Hx Reported Smoking Status: Former smoker Past Alcohol Use History: None Reported Past Drug Use History: None Reported - Past Family History Father Family Medical History: Cancer, Diabetes Mellitus Additional Family Medical History / Comment(s): age 70 from lung cancer Mother Additional Family Medical History / Comment(s): age 83 emphysema General Exam Limitations: no limitations General appearance: alert, in no apparent distress Head exam: Present: atraumatic, normocephalic, normal inspection Eye exam: Present: normal appearance, PERRL, EOMI Pupils: Present: normal accommodation ENT exam: Present: normal exam, normal oropharynx, mucous membranes moist Neck exam: Present: normal inspection, full ROM. Absent: tenderness, lymphadenopathy Respiratory exam: Present: normal lung sounds bilaterally. Absent: respiratory distress Cardiovascular Exam: Present: regular rate, normal rhythm, normal heart sounds. Absent: systolic murmur Extremities exam: Present: normal inspection, full ROM, normal capillary refill. Absent: tenderness, pedal edema, joint swelling Back exam: Present: normal inspection, full ROM. Absent: tenderness, CVA tenderness (R), CVA tenderness (L) Neurological exam: Present: alert, oriented X3 Psychiatric exam: Present: normal affect, normal mood Skin exam: Present: warm, dry, intact, normal color Course Vital Signs 07/10/20 15:49 Temperature 98.2 F Pulse Rate 63 Respiratory 18 Rate Blood Pressure 123/86 O2 Sat by Pulse 100 Oximetry Medical Decision Making - Medical Decision Making 75-year-old female with history of diabetes and COPD presents to the emergency department with a chief complaint of high blood sugar. On physical examination, patient is AOx4. No signs of significant dehydration. CBC is unremarkable. CMP reveals hyponatremia of 128, likely secondary to hyperglycemia of 777. PH is 7.5.and I get 14. BUN 51 which appears to be her baseline. She does have elevated creatinine of 2.42. Patient was given 2 L of IV fluids initially. She was also given 7 units of regular insulin. This appears to be more of HHS versus DKA. UA pending. Patient will be admitted for insulin infusion and IV fluids. I discussed the case with Dr. Barrios who will admit for further medical management. Case discussed with Dr. Arnold. - Lab Data Result diagrams: 07/10/20 16:29 07/10/20 16:29 Lab Results 07/10/20 07/10/20 07/10/20 Range/Units 15:51 16:29 16:29 WBC 6.3 (3.8-10.6) k/uL RBC 4.93 (3.80-5.40) m/uL Hgb 14.0 D (11.4-16.0) gm/dL Hct 42.9 (34.0-46.0) % MCV 87.1 (80.0-100.0) fL MCH 28.5 (25.0-35.0) pg MCHC 32.7 (31.0-37.0) g/dL RDW 13.3 (11.5-15.5) % Plt Count 122 L (150-450) k/uL MPV 9.9 Neutrophils % 63 % Lymphocytes % 26 % Monocytes % 7 % Eosinophils % 1 % Basophils % 1 % Neutrophils # 4.0 (1.3-7.7) k/uL Lymphocytes # 1.6 (1.0-4.8) k/uL Monocytes # 0.5 (0-1.0) k/uL Eosinophils # 0.1 (0-0.7) k/uL Basophils # 0.0 (0-0.2) k/uL VBG pH (7.31-7.41) VBG pCO2 (37-51) mmHg VBG HCO3 (24-28) mmol/L Sodium 128 L (137-145) mmol/L Potassium 4.1 (3.5-5.1) mmol/L Chloride 88 L (98-107) mmol/L Carbon Dioxide 26 (22-30) mmol/L Anion Gap 14 mmol/L BUN 51 H (7-17) mg/dL Creatinine 2.42 H (0.52-1.04) mg/dL Est GFR (CKD-EPI)AfAm 22 (>60 ml/min/1.73 sqM) Est GFR (CKD-EPI)NonAf 19 (>60 ml/min/1.73 sqM) Glucose (74-99) mg/dL POC Glucose (mg/dL) >600 H (75-99) mg/dL POC Glu Before And After School Daycare Worker ID Fetterhoff, Freddy Calcium 9.8 (8.4-10.2) mg/dL Phosphorus 3.5 (2.5-4.5) mg/dL Magnesium 2.3 (1.6-2.3) mg/dL Total Bilirubin 1.0 (0.2-1.3) mg/dL AST 26 (14-36) U/L ALT 23 (4-34) U/L Alkaline Phosphatase 119 (38-126) U/L Total Protein 6.9 (6.3-8.2) g/dL Albumin 4.4 (3.5-5.0) g/dL Acetone, Qual Negative (Negative) 07/10/20 Range/Units 16:29 WBC (3.8-10.6) k/uL RBC (3.80-5.40) m/uL Hgb (11.4-16.0) gm/dL Hct (34.0-46.0) % MCV (80.0-100.0) fL MCH (25.0-35.0) pg MCHC (31.0-37.0) g/dL RDW (11.5-15.5) % Plt Count (150-450) k/uL MPV Neutrophils % % Lymphocytes % % Monocytes % % Eosinophils % % Basophils % % Neutrophils # (1.3-7.7) k/uL Lymphocytes # (1.0-4.8) k/uL Monocytes # (0-1.0) k/uL Eosinophils # (0-0.7) k/uL Basophils # (0-0.2) k/uL VBG pH 7.50 H (7.31-7.41) VBG pCO2 34 L (37-51) mmHg VBG HCO3 26 (24-28) mmol/L Sodium (137-145) mmol/L Potassium (3.5-5.1) mmol/L Chloride (98-107) mmol/L Carbon Dioxide (22-30) mmol/L Anion Gap mmol/L BUN (7-17) mg/dL Creatinine (0.52-1.04) mg/dL Est GFR (CKD-EPI)AfAm (>60 ml/min/1.73 sqM) Est GFR (CKD-EPI)NonAf (>60 ml/min/1.73 sqM) Glucose (74-99) mg/dL POC Glucose (mg/dL) (75-99) mg/dL POC Glu Before And After School Daycare Worker ID Calcium (8.4-10.2) mg/dL Phosphorus (2.5-4.5) mg/dL Magnesium (1.6-2.3) mg/dL Total Bilirubin (0.2-1.3) mg/dL AST (14-36) U/L ALT (4-34) U/L Alkaline Phosphatase (38-126) U/L Total Protein (6.3-8.2) g/dL Albumin (3.5-5.0) g/dL Acetone, Qual (Negative) Disposition Clinical Impression: Hyperglycemia, Hyponatremia Disposition: ADMITTED IP TO THIS HOSP Condition: Fair Is patient prescribed a controlled substance at d/c from ED?: No Referrals: Last Barrios MD [Primary Care Provider] - 1-2 days Time of Disposition: 18:18
[2020-07-10] MEDS ORDERED: SODIUM CHLORIDE 0.9% 2,000 ML IV STA (16:11)
[2020-07-10] MEDS ORDERED: INSULIN REGULAR 100 UNIT/ML VIAL IV ONE (16:11)
[2020-07-10 16:40] LABS: Basophils % (A) 1 %; Eosinophils # (A) 0.1 k/uL (0-0.7); Eosinophils % (A) 1 %; HCT 42.9 % (34.0-46.0); Lymphocytes # (A) 1.6 k/uL (1.0-4.8); Lymphocytes % (A) 26 %; MCH 28.5 pg (25.0-35.0); MCHC 32.7 g/dL (31.0-37.0); MCV 87.1 fL (80.0-100.0); Mean Platelet Volume 9.9; Monocytes # (A) 0.5 k/uL (0-1.0); Monocytes % (A) 7 %; Neutrophils % (A) 63 %; Platelet Count 122 k/uL (150-450); RBC 4.93 m/uL (3.80-5.40); RDW 13.3 % (11.5-15.5); WBC 6.3 k/uL (3.8-10.6)
[2020-07-10 16:48] LABS: ALT 23 U/L (4-34); AST 26 U/L (14-36); African American GFR (CKD) 22 (>60 ml/min/1.73 sqM); Albumin 4.4 g/dL (3.5-5.0); Alkaline Phosphatase 119 U/L (38-126); Anion Gap 14 mmol/L; Blood Urea Nitrogen 51 mg/dL (7-17); Calcium 9.8 mg/dL (8.4-10.2); Carbon Dioxide 26 mmol/L (22-30); Chloride 88 mmol/L (98-107); Magnesium 2.3 mg/dL (1.6-2.3); Non-African American GFR(CKD) 19 (>60 ml/min/1.73 sqM); Phosphorus 3.5 mg/dL (2.5-4.5); Potassium 4.1 mmol/L (3.5-5.1); Sodium 128 mmol/L (137-145); Total Protein 6.9 g/dL (6.3-8.2); VBG PH 7.5 (7.31-7.41)
[2020-07-10] MEDS ORDERED: SODIUM CHLORIDE 0.9% 1,000 ML IV STA ×2 (16:51→17:17)
[2020-07-10] MEDS: SODIUM CHLORIDE 0.9% 1,000 ML IV SCH (17:55)
[2020-07-10] MEDS: INSULIN REGULAR 100 UNIT in SODIUM CHLORIDE 0.9% 100 ML IV SCH (18:24)
[2020-07-10] MEDS ORDERED: METOPROLOL TARTRATE 50 MG TAB PO STA (18:31)
[2020-07-10 18:35] LABS: Glucose,Whole Blood >600 mg/dL (75-99)
[2020-07-10 20:02] LABS: Glucose,Whole Blood 466 mg/dL (75-99)
[2020-07-10 20:06] LABS: Appearance,Urine Clear (Clear); Bacteria,Urine Rare /hpf; Bilirubin,Urine Negative (Negative); Blood,Urine Negative (Negative); Color,Urine Colorless; Glucose,Urine (UA) 4+ (Negative); Ketones,Urine Negative (Negative); Leukocyte Esterase,Urine Large (Negative); Nitrite,Urine Negative (Negative); Protein,Urine Negative (Negative); RBC,Urine 4 /hpf (0-5); Specific Gravity,Urine 1.011 (1.001-1.035); Squamous Epithelial Cell,Urine 2 /hpf (0-4); Urobilinogen,Urine <2.0 mg/dL (<2.0); WBC,Urine 7 /hpf (0-5)
[2020-07-10 20:47] LABS: Phosphorus 2.7 mg/dL (2.5-4.5); Potassium 2.8 mmol/L (3.5-5.1)
[2020-07-10 21:48] LABS: Glucose,Whole Blood 339 mg/dL (75-99)
[2020-07-10 22:49] LABS: Glucose,Whole Blood 115 mg/dL (75-99)
[2020-07-10] MEDS: D5-0.45% NACL WITH KCL 20MEQ/L 1,000 ML IV SCH (23:10)
[2020-07-11 00:26] LABS: Glucose,Whole Blood 49 mg/dL (75-99)
[2020-07-11 00:47] LABS: Glucose,Whole Blood 73 mg/dL (75-99)
[2020-07-11 01:01] LABS: Phosphorus 2.2 mg/dL (2.5-4.5)
[2020-07-11 01:25] LABS: Glucose,Whole Blood 143 mg/dL (75-99)
[2020-07-11 02:34] LABS: Glucose,Whole Blood 209 mg/dL (75-99)
[2020-07-11 02:37] LABS: Potassium 2.6 mmol/L (3.5-5.1)
[2020-07-11] MEDS ORDERED: Potassium Replacement Protocol 1 EACH MISC MISCELLANE PRN (02:39)
[2020-07-11] MEDS: SODIUM CHLORIDE 0.9% 1,000 ML IV SCH (02:42)
[2020-07-11 03:37] LABS: Glucose,Whole Blood 231 mg/dL (75-99)
[2020-07-11] MEDS: POTASSIUM CHLORIDE ER 20 MEQ TAB.ER PO SCH ×3 (03:38→15:27)
[2020-07-11 04:31] LABS: Glucose,Whole Blood 277 mg/dL (75-99)
[2020-07-11 05:47] LABS: Glucose,Whole Blood 257 mg/dL (75-99)
[2020-07-11 06:49] LABS: Glucose,Whole Blood 226 mg/dL (75-99)
[2020-07-11] MEDS: D5-0.45% NACL WITH KCL 20MEQ/L 1,000 ML IV SCH ×2 (07:25→15:27)
[2020-07-11 07:30] LABS: Glucose,Whole Blood 212 mg/dL (75-99)
[2020-07-11] MEDS: INSULIN REGULAR 100 UNIT in SODIUM CHLORIDE 0.9% 100 ML IV SCH (07:44)
--- NOTE | 2020-07-11 08:13 | P.HPIM ---
History of Present Illness Chief Complaint: Hyperglycemic. This is a history of physical 75-year-old white female with uncontrolled diabetes. She was recently started on Ozempic but had poor control as of recent. She states she ate an orange and then had significant fall related to hyperglycemia. HHS was diagnosed on admission and she is appropriately been treated with insulin drip. She is alert and oriented and is resigned to most likely take insulin as an outpatient. Review of Systems Constitutional: Denies chills, Denies fever Eyes: denies blurred vision, denies pain Ears, nose, mouth and throat: Denies headache, Denies sore throat Cardiovascular: Denies chest pain, Denies shortness of breath Respiratory: Denies cough Gastrointestinal: Denies abdominal pain, Denies diarrhea, Denies nausea, Denies vomiting Genitourinary: Denies dysuria, Denies hematuria Musculoskeletal: Denies myalgias Integumentary: Denies pruritus, Denies rash Neurological: Denies numbness, Denies weakness Past Medical History Past Medical History: Atrial Fibrillation, Chest Pain / Angina, Diabetes Mellitus, Hypertension, Myocardial Infarction ([place]), Osteoarthritis (OA), Pneumonia Additional Past Medical History / Comment(s): arthritis, 01-03-14 cardiac arrest/resp failure/mi post intubation came from 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 Last Myocardial Infarction Date:: 01-03-14 History of Any Multi-Drug Resistant Organisms: None Reported Past Surgical History: Heart Catheterization With Stent Additional Past Surgical History / Comment(s): d&c, stent RCA 01-07-14, stent LAD 02/14/2019 Past Anesthesia/Blood Transfusion Reactions: No Reported Reaction Date of Last Stent Placement:: 2013 Past Psychological History: No Psychological Hx Reported Smoking Status: Former smoker Past Alcohol Use History: None Reported Past Drug Use History: None Reported - Past Family History Father Family Medical History: Cancer, Diabetes Mellitus Additional Family Medical History / Comment(s): age 70 from lung cancer Mother Additional Family Medical History / Comment(s): age 83 emphysema Medications and Allergies Home Medications Medication Instructions Recorded Confirmed Type Ferrous Sulfate [Iron (65 MG 325 mg PO DAILY 02/12/19 07/10/20 History Elemental)] Aspirin 81 mg PO DAILY #30 chew 07/01/19 07/10/20 Rx Ascorbic Acid [Vitamin C] 500 mg PO DAILY 03/25/20 07/10/20 History Enalapril Maleate [Vasotec] 5 mg PO BID 03/25/20 07/10/20 History L.acidoph,Paracasei, B.lactis 1 tab PO DAILY 03/25/20 07/10/20 History [Probiotic] Vitamin B Complex 1 cap PO DAILY 03/25/20 07/10/20 History Apixaban [Eliquis] 5 mg PO BID #60 tab 03/28/20 07/10/20 Rx Cholecalciferol [Vitamin D3 (25 50 mcg PO DAILY 04/14/20 07/10/20 History Mcg = 1000 Iu)] Amiodarone [Cordarone] 200 mg PO DAILY 04/22/20 07/10/20 History Potassium Chloride ER [K-Dur 20] 20 meq PO DAILY #90 tab 04/25/20 07/10/20 Rx Metoprolol Tartrate [Lopressor] 50 mg PO BID 05/04/20 07/10/20 History Furosemide [Lasix] 40 mg PO BID 07/10/20 07/10/20 History Diane 500 mg PO DAILY 07/10/20 07/10/20 History Inulin/Chromium Picolinate [Fiber 3 tab PO DAILY 07/10/20 07/10/20 History Gummies Chew] Semaglutide [Rybelsus] 7 mg PO DAILY 07/10/20 07/10/20 History Allergies Allergy/AdvReac Type Severity Reaction Status Date / Time Corticosteroids Allergy Unknown Unknown Verified 07/10/20 17:58 (Glucocorticoids) egg Allergy Unknown Unknown Verified 07/10/20 17:58 azithromycin [From Zithromax] Allergy Anaphylaxis Verified 07/10/20 17:58 banana Allergy Unknown Verified 07/10/20 17:58 carisoprodol [From Soma] Allergy Unknown Verified 07/10/20 17:58 ciprofloxacin [From Cipro] Allergy Unknown Verified 07/10/20 17:58 cortisone [Cortisone] Allergy Unknown Verified 07/10/20 17:58 cyclobenzaprine HCl Allergy Unknown Verified 07/10/20 17:58 [From Flexeril] latex Allergy Unknown Verified 07/10/20 17:58 Latex, Natural Rubber Allergy Unknown Verified 07/10/20 17:58 levofloxacin [From Levaquin] Allergy Anaphylaxis Verified 07/10/20 17:58 Penicillins Allergy Anaphylaxis Verified 07/10/20 17:58 Physical Exam Vitals: Vital Signs Temp Pulse Resp BP Pulse Ox 07/11/20 07:00 56 H 122/63 98 07/11/20 06:00 68 18 122/63 97 07/11/20 05:00 60 18 135/48 97 07/11/20 04:35 68 18 135/53 97 07/11/20 03:00 84 16 121/47 97 07/11/20 02:29 74 18 112/50 97 07/11/20 01:29 80 18 127/46 98 07/10/20 22:43 60 18 133/61 07/10/20 21:10 55 L 18 140/85 99 07/10/20 20:00 64 18 136/82 98 07/10/20 15:49 98.2 F 63 18 123/86 100 Intake and Output 07/10/20 07/11/20 07/11/20 22:59 06:59 14:59 Intake Total 33.229 13.667 7.6 Balance 33.229 13.667 7.6 Intake: Intake, IV Titration 33.229 13.667 7.6 Amount Insulin Regular 100 unit 33.229 13.667 7.6 In Sodium Chloride 0.9% 100 ml @ 0.1 UNITS/KG/HR 7.33 mls/hr IV .[id number] [facility] Rx#:[id number] Other: Weight 72.575 kg - Constitutional General appearance: no acute distress - EENT Eyes: EOMI - Neck Neck: no lymphadenopathy - Respiratory Respiratory: bilateral: CTA - Cardiovascular Rhythm: irregularly irregular Heart sounds: normal: S1, S2 Abnormal Heart Sounds: no S3 Gallop - Gastrointestinal General gastrointestinal: no tenderness - Neurologic Neurologic: CNII-XII intact - Musculoskeletal Musculoskeletal: strength equal bilaterally Results CBC & Chem 7: 07/10/20 16:29 07/11/20 05:22 Labs: Abnormal Lab Results - Last 24 Hours (Table) 07/10/20 07/10/20 07/10/20 Range/Units 15:51 16:29 16:29 Plt Count 122 L (150-450) k/uL VBG pH (7.31-7.41) VBG pCO2 (37-51) mmHg Sodium 128 L (137-145) mmol/L Potassium (3.5-5.1) mmol/L Chloride 88 L (98-107) mmol/L BUN 51 H (7-17) mg/dL Creatinine 2.42 H (0.52-1.04) mg/dL Glucose (74-99) mg/dL POC Glucose (mg/dL) >600 H (75-99) mg/dL Osmolality (280-301) mosm/kg Phosphorus (2.5-4.5) mg/dL Urine Glucose (UA) (Negative) Ur Leukocyte Esterase (Negative) Urine WBC (0-5) /hpf Urine Bacteria (None) /hpf 07/10/20 07/10/20 07/10/20 Range/Units 16:29 16:29 16:29 Plt Count (150-450) k/uL VBG pH 7.50 H (7.31-7.41) VBG pCO2 34 L (37-51) mmHg Sodium (137-145) mmol/L Potassium (3.5-5.1) mmol/L Chloride (98-107) mmol/L BUN (7-17) mg/dL Creatinine (0.52-1.04) mg/dL Glucose (74-99) mg/dL POC Glucose (mg/dL) (75-99) mg/dL Osmolality 326 H* (280-301) mosm/kg Phosphorus (2.5-4.5) mg/dL Urine Glucose (UA) 4+ H (Negative) Ur Leukocyte Esterase Large H (Negative) Urine WBC 7 H (0-5) /hpf Urine Bacteria Rare H (None) /hpf 07/10/20 07/10/20 07/10/20 Range/Units 18:28 19:59 20:19 Plt Count (150-450) k/uL VBG pH (7.31-7.41) VBG pCO2 (37-51) mmHg Sodium (137-145) mmol/L Potassium 2.8 L (3.5-5.1) mmol/L Chloride (98-107) mmol/L BUN 46 H (7-17) mg/dL Creatinine 1.94 H (0.52-1.04) mg/dL Glucose 405 H (74-99) mg/dL POC Glucose (mg/dL) >600 H 466 H (75-99) mg/dL Osmolality (280-301) mosm/kg Phosphorus (2.5-4.5) mg/dL Urine Glucose (UA) (Negative) Ur Leukocyte Esterase (Negative) Urine WBC (0-5) /hpf Urine Bacteria (None) /hpf 07/10/20 07/10/20 07/11/20 Range/Units 21:34 22:43 00:17 Plt Count (150-450) k/uL VBG pH (7.31-7.41) VBG pCO2 (37-51) mmHg Sodium (137-145) mmol/L Potassium 2.6 L* (3.5-5.1) mmol/L Chloride (98-107) mmol/L BUN 41 H (7-17) mg/dL Creatinine 1.66 H (0.52-1.04) mg/dL Glucose 41 L* (74-99) mg/dL POC Glucose (mg/dL) 339 H 115 H (75-99) mg/dL Osmolality (280-301) mosm/kg Phosphorus 2.2 L (2.5-4.5) mg/dL Urine Glucose (UA) (Negative) Ur Leukocyte Esterase (Negative) Urine WBC (0-5) /hpf Urine Bacteria (None) /hpf 07/11/20 07/11/20 07/11/20 Range/Units 00:20 00:46 01:24 Plt Count (150-450) k/uL VBG pH (7.31-7.41) VBG pCO2 (37-51) mmHg Sodium (137-145) mmol/L Potassium (3.5-5.1) mmol/L Chloride (98-107) mmol/L BUN (7-17) mg/dL Creatinine (0.52-1.04) mg/dL Glucose (74-99) mg/dL POC Glucose (mg/dL) 49 L 73 L 143 H (75-99) mg/dL Osmolality (280-301) mosm/kg Phosphorus (2.5-4.5) mg/dL Urine Glucose (UA) (Negative) Ur Leukocyte Esterase (Negative) Urine WBC (0-5) /hpf Urine Bacteria (None) /hpf 07/11/20 07/11/20 07/11/20 Range/Units 02:33 03:36 04:30 Plt Count (150-450) k/uL VBG pH (7.31-7.41) VBG pCO2 (37-51) mmHg Sodium (137-145) mmol/L Potassium (3.5-5.1) mmol/L Chloride (98-107) mmol/L BUN (7-17) mg/dL Creatinine (0.52-1.04) mg/dL Glucose (74-99) mg/dL POC Glucose (mg/dL) 209 H 231 H 277 H (75-99) mg/dL Osmolality (280-301) mosm/kg Phosphorus (2.5-4.5) mg/dL Urine Glucose (UA) (Negative) Ur Leukocyte Esterase (Negative) Urine WBC (0-5) /hpf Urine Bacteria (None) /hpf 07/11/20 07/11/20 07/11/20 Range/Units 05:22 05:36 06:47 Plt Count (150-450) k/uL VBG pH (7.31-7.41) VBG pCO2 (37-51) mmHg Sodium (137-145) mmol/L Potassium 3.3 L (3.5-5.1) mmol/L Chloride (98-107) mmol/L BUN (7-17) mg/dL Creatinine (0.52-1.04) mg/dL Glucose (74-99) mg/dL POC Glucose (mg/dL) 257 H 226 H (75-99) mg/dL Osmolality (280-301) mosm/kg Phosphorus (2.5-4.5) mg/dL Urine Glucose (UA) (Negative) Ur Leukocyte Esterase (Negative) Urine WBC (0-5) /hpf Urine Bacteria (None) /hpf 07/11/20 Range/Units 07:28 Plt Count (150-450) k/uL VBG pH (7.31-7.41) VBG pCO2 (37-51) mmHg Sodium (137-145) mmol/L Potassium (3.5-5.1) mmol/L Chloride (98-107) mmol/L BUN (7-17) mg/dL Creatinine (0.52-1.04) mg/dL Glucose (74-99) mg/dL POC Glucose (mg/dL) 212 H (75-99) mg/dL Osmolality (280-301) mosm/kg Phosphorus (2.5-4.5) mg/dL Urine Glucose (UA) (Negative) Ur Leukocyte Esterase (Negative) Urine WBC (0-5) /hpf Urine Bacteria (None) /hpf Assessment and Plan (1) Type 2 diabetes mellitus with hyperosmolar hyperglycemic state (HHS) Current Visit: Yes Status: Acute Code(s): E11.00 - TYPE 2 DIAB W HYPROSM W/O NONKET HYPRGLY-HYPROS COMA (NKHHC); E11.65 - TYPE 2 DIABETES MELLITUS WITH HYPERGLYCEMIA SNOMED Code(s): 04141149 (2) Hyperglycemia Current Visit: Yes Status: Acute Code(s): R73.9 - HYPERGLYCEMIA, UNSPECIFIED SNOMED Code(s): 48137907 (3) Atrial fibrillation Current Visit: No Status: Acute Code(s): I48.91 - UNSPECIFIED ATRIAL FIBRILLATION SNOMED Code(s): 69453763 Plan: Continue hydration. We'll transfer to general medical floor with insulin drip and slowly wean. Check CBC and CMP in a.m.
[2020-07-11 08:34] LABS: Glucose,Whole Blood 155 mg/dL (75-99)
[2020-07-11] MEDS ORDERED: NON FORMULARY DRUG (Inulin/Chromium Picolinate [Fiber Gummies Chew] 1 EACH Tab.Chew) PO SCH (09:00)
[2020-07-11] MEDS ORDERED: NON FORMULARY DRUG (Vitamin B Complex [Vitamin B Complex] 1 EACH Capsule) PO SCH (09:00)
[2020-07-11] MEDS ORDERED: GINGER 500 MG PO SCH (09:00)
[2020-07-11] MEDS: CHOLECALCIFEROL 25 MCG (1000 IU) TABLET PO SCH (09:03)
[2020-07-11] MEDS: ASCORBIC ACID 500 MG TAB PO SCH (09:03)
[2020-07-11] MEDS: FERROUS SULFATE 325 MG TAB PO SCH (09:03)
[2020-07-11] MEDS: APIXABAN 5 MG TAB PO SCH ×2 (09:04→21:58)
[2020-07-11] MEDS: lisinopriL 20 MG TAB PO SCH (09:04)
[2020-07-11] MEDS: LACTOBACILLUS ACIDOPH & BULGAR 1 EACH PACKET PO SCH (09:05)
[2020-07-11] MEDS: ASPIRIN 81 MG PO SCH (09:05)
[2020-07-11 09:41] LABS: Glucose,Whole Blood 136 mg/dL (75-99)
[2020-07-11 10:35] LABS: Potassium 3.9 mmol/L (3.5-5.1)
[2020-07-11 10:40] LABS: Glucose,Whole Blood 137 mg/dL (75-99)
[2020-07-11 11:35] LABS: Glucose,Whole Blood 136 mg/dL (75-99)
[2020-07-11] MEDS: AMIODARONE 200 MG TAB PO SCH (11:55)
[2020-07-11] MEDS: METOPROLOL TARTRATE 50 MG TAB PO SCH ×2 (11:55→21:58)
[2020-07-11 12:35] LABS: Glucose,Whole Blood 149 mg/dL (75-99)
[2020-07-11] MEDS: INSULIN DETEMIR (LEVEMIR) 100 UNIT/ML SYR SQ SCH ×2 (14:11→21:59)
[2020-07-11 14:15] LABS: Glucose,Whole Blood 216 mg/dL (75-99)
[2020-07-11 15:08] VITALS: BMI 31.2
[2020-07-11 16:52] LABS: Glucose,Whole Blood 224 mg/dL (75-99)
[2020-07-11] MEDS: INSULIN ASPART (NovoLOG) 100 UNIT/ML VIAL SQ SCH ×2 (17:07→21:59)
[2020-07-11 20:19] LABS: Glucose,Whole Blood 219 mg/dL (75-99)
[2020-07-12] MEDS: INSULIN ASPART (NovoLOG) 100 UNIT/ML VIAL SQ SCH (07:16)
[2020-07-12 07:40] LABS: Glucose,Whole Blood 52 mg/dL (75-99)
[2020-07-12 07:40] LABS: Glucose,Whole Blood 60 mg/dL (75-99)
[2020-07-12 07:41] LABS: Glucose,Whole Blood 66 mg/dL (75-99)
[2020-07-12 07:58] LABS: Glucose,Whole Blood 80 mg/dL (75-99)
[2020-07-12] MEDS: CHOLECALCIFEROL 25 MCG (1000 IU) TABLET PO SCH (09:41)
[2020-07-12] MEDS: LACTOBACILLUS ACIDOPH & BULGAR 1 EACH PACKET PO SCH (09:41)
[2020-07-12] MEDS: FERROUS SULFATE 325 MG TAB PO SCH (09:42)
[2020-07-12] MEDS: METOPROLOL TARTRATE 50 MG TAB PO SCH ×2 (09:42→20:54)
[2020-07-12] MEDS: ASPIRIN 81 MG PO SCH (09:42)
[2020-07-12] MEDS: AMIODARONE 200 MG TAB PO SCH (09:42)
[2020-07-12] MEDS: ASCORBIC ACID 500 MG TAB PO SCH (09:42)
[2020-07-12] MEDS: APIXABAN 5 MG TAB PO SCH ×2 (09:42→20:54)
[2020-07-12 11:37] LABS: Glucose,Whole Blood 272 mg/dL (75-99)
[2020-07-12] MEDS ORDERED: INSULIN ASPART (NovoLOG) 100 UNIT/ML VIAL SQ ONE (12:15)
[2020-07-12 12:16] LABS: African American GFR (CKD) 45.8 (60.0-200.0); Albumin 3.1 g/dL (3.80-4.90); Albumin/Globulin Ratio 1.94 (1.60-3.17); Anion Gap 7.5 mmol/L (4.00-12.00); BUN/Creat Ratio 18.46 Ratio (12.00-20.00); Carbon Dioxide 23.5 mmol/L (21.6-31.8); Globulin 1.6 g/dL (1.6-3.3); Non-African American GFR(CKD) 39.5 (60.0-200.0); Total Bilirubin 0.3 mg/dL (0.2-1.2); Total Protein 4.7 g/dL (6.2-8.2)
[2020-07-12 12:49] LABS: HCT 36.3 % (37.2-46.3); HGB 11.5 g/dL (12.0-15.0); MCH 27.7 pg (27.0-32.0); MCHC 31.7 g/dL (32.0-37.0); MCV 87.5 fL (80.0-97.0); Mean Platelet Volume 13.6 fL (9.5-12.2); Platelet Count 100 X 10*3/uL (140-440); RBC 4.15 X 10*6/uL (4.10-5.20); RDW 13.3 % (11.5-14.5); WBC 9.21 X 10*3/uL (4.50-10.00)
[2020-07-12 14:50] LABS: Hemoglobin A1C 14.4 % (4.0-6.0)
[2020-07-12 17:38] LABS: Glucose,Whole Blood 208 mg/dL (75-99)
[2020-07-12 20:47] LABS: Glucose,Whole Blood 352 mg/dL (75-99)
[2020-07-12] MEDS: INSULIN DETEMIR (LEVEMIR) 100 UNIT/ML SYR SQ SCH (20:54)
[2020-07-13 02:05] LABS: Glucose,Whole Blood 365 mg/dL (75-99)
[2020-07-13 03:08] VITALS: RESP 17
[2020-07-13 06:52] LABS: Glucose,Whole Blood 145 mg/dL (75-99)
[2020-07-13 07:50] VITALS: BP 130/70; PULSE 59; TEMP 97.7
[2020-07-13] MEDS: FERROUS SULFATE 325 MG TAB PO SCH (09:22)
[2020-07-13] MEDS: CHOLECALCIFEROL 25 MCG (1000 IU) TABLET PO SCH (09:22)
[2020-07-13] MEDS: LACTOBACILLUS ACIDOPH & BULGAR 1 EACH PACKET PO SCH (09:22)
[2020-07-13] MEDS: APIXABAN 5 MG TAB PO SCH (09:22)
[2020-07-13] MEDS: ASPIRIN 81 MG PO SCH (09:22)
[2020-07-13] MEDS: ASCORBIC ACID 500 MG TAB PO SCH (09:22)
[2020-07-13] MEDS: METOPROLOL TARTRATE 50 MG TAB PO SCH (09:22)
[2020-07-13] MEDS: lisinopriL 20 MG TAB PO SCH (09:23)
[2020-07-13] MEDS: AMIODARONE 200 MG TAB PO SCH ×2 (09:23→11:55)
--- NOTE | 2020-07-13 09:54 | P.PN ---
Subjective Progress Note Date: 07/12/20 Principal diagnosis: Diabetes mellitus type 2 with hyperosmolar hyperglycemic state 75-year-old white female with uncontrolled diabetes. She was recently started on Ozempic but had poor control as of recent. She states she ate an orange and then had significant fall related to hyperglycemia. HHS was diagnosed on admission and she is appropriately been treated with insulin drip. She is alert and oriented and is resigned to most likely take insulin as an outpatient. Patient is awake alert and oriented; agreeable to transition to long-acting insulin and continue as outpatient; patient had few low blood glucose readings the lowest one at 36; we will plan to discontinue sliding scale and try to maintain blood glucose with long-acting insulin; patient requesting to be di scharged home; we will plan to continue to monitor blood glucose for another 24 hours with plan to discharge tomorrow if blood glucose remained stable Objective - Vital Signs Vital signs: Vital Signs Temp 97.4 F L 07/12/20 08:00 Pulse 64 07/12/20 08:00 Resp 16 07/12/20 08:00 BP 129/69 07/12/20 08:00 Pulse Ox 98 07/12/20 08:00 Intake & Output 07/11/20 07/12/20 07/12/20 18:59 06:59 18:59 Intake Total 18.170 Balance 18.170 Weight 72.575 kg 72.575 kg Intake: Intake, IV Titration 18.170 Amount Insulin Regular 100 unit 18.170 In Sodium Chloride 0.9% 100 ml @ 0.1 UNITS/KG/HR 7.33 mls/hr IV .[id number] [facility] Rx#:[id number] Other: Voiding Method Bedpan Toilet # Voids 1 1 1 # Bowel Movements 1 - Exam PHYSICAL EXAMINATION: GENERAL: The patient is alert and oriented x3, not in any acute distress. Well developed, well nourished. HEENT: Pupils are round and equally reacting to light. EOMI. No scleral icterus. No conjunctival pallor. Normocephalic, atraumatic. No pharyngeal erythema. No thyromegaly. CARDIOVASCULAR: S1 and S2 present. No murmurs, rubs, or gallops. PULMONARY: Chest is clear to auscultation, no wheezing or crackles. ABDOMEN: Soft, nontender, nondistended, normoactive bowel sounds. No palpable organomegaly. MUSCULOSKELETAL: No joint swelling or deformity. EXTREMITIES: No cyanosis, clubbing, or pedal edema. NEUROLOGICAL: Gross neurological examination did not reveal any focal deficits. SKIN: No rashes. - Labs CBC & Chem 7: 07/12/20 06:45 07/12/20 06:45 Labs: Abnormal Lab Results - Last 24 Hours (Table) 07/11/20 07/11/20 07/11/20 Range/Units 10:12 11:33 12:34 Chloride 108 H (98-107) mmol/L BUN 38 H (7-17) mg/dL Creatinine 1.53 H (0.52-1.04) mg/dL Glucose 125 H (74-99) mg/dL POC Glucose (mg/dL) 136 H 149 H (75-99) mg/dL 07/11/20 07/11/20 07/11/20 Range/Units 14:13 16:47 20:17 Chloride (98-107) mmol/L BUN (7-17) mg/dL Creatinine (0.52-1.04) mg/dL Glucose (74-99) mg/dL POC Glucose (mg/dL) 216 H 224 H 219 H (75-99) mg/dL 07/12/20 07/12/20 07/12/20 Range/Units 07:09 07:22 07:34 Chloride (98-107) mmol/L BUN (7-17) mg/dL Creatinine (0.52-1.04) mg/dL Glucose (74-99) mg/dL POC Glucose (mg/dL) 52 L 60 L 66 L (75-99) mg/dL Assessment and Plan Assessment: 1. Hyperosmolar hyperglycemic state; patient has diabetes mellitus type 2 currently controlled with insulin; patient has wide fluctuations in blood glucose levels and has been started on insulin infusion with plan to transition to at bedtime long-acting insulin; this was discussed with patient and she is agreeable; patient had blood glucoses dropping down to 36; we will discontinue sliding scale and continue with long-acting insulin at this time 2. Diabetes mellitus type 2 controlled with insulin; patient has been started on Levemir 22 units subcu daily at bedtime; we will continue to monitor Accu-Cheks every before meals and at bedtime with insulin sliding scale as needed 3. Atrial fibrillation; remains rate controlled with amiodarone and metoprolol and systemically anticoagulated 4. Hypertension; fairly controlled on lisinopril and metoprolol 5. Vitamin D deficiency; continue with vitamin D3 thousand international units daily DVT prophylaxis; SCDs/systemic anticoagulation CODE STATUS; full code
[2020-07-13 11:43] LABS: Glucose,Whole Blood 196 mg/dL (75-99)
--- NOTE | 2020-07-16 10:40 | CDI ---
Documentation Clarification Form Date: 07/16/2020 10:32:00 AM From: Milly Sharma Phone: Admit Date: 07/10/2020 05:47:00 PM Patient Name: Vicky Nixon V Visit Number: [id number] Discharge Date: 07/13/2020 02:18:00 PM ATTENTION: The Clinical Documentation Specialists (CDI) and [facility] Coding Staff appreciate your assistance in clarifying documentation. Please respond to the clarification below the line at the bottom and electronically sign. The CDI & [facility] Coding staff will review the response and follow-up if needed. Please note: Queries are made part of the Legal Health Record. If you have any questions, please contact the author of this message via ITS. Dr. Last Barrios, Atrial Fibrillation is documented in the H&P. Additional clarification regarding the type of atrial fibrillation is requested. History/Risk Factors: Type 2 diabetes mellitus with hyperosmolar hyperglycemic state Clinical Indicators: Atrial fibrillation EKG/telemetry: Sinus bradycardia, LBBB Treatment: Eliquis 5 mg BID Please clarify the type of atrial fibrillation, if known: [ x ] Chronic [ ] Permanent [ ] Paroxysmal [ ] Persistent [ ] Other, please specify [ ] Unable to determine MTDD
--- NOTE | 2020-07-28 16:48 | P.DS ---
Providers Date of admission: 07/10/20 17:47 Expected date of discharge: 07/13/20 Attending physician: Last Barrios Primary care physician: Last Barrios Hospital Course: 75-year-old white female with uncontrolled diabetes. She was recently started on Ozempic but had poor control as of recent. She states she ate an orange and then had significant fall related to hyperglycemia. HHS was diagnosed on admission and she is appropriately been treated with insulin drip. She is alert and oriented and is resigned to most likely take insulin as an outpatient. Patient is awake alert and oriented; agreeable to transition to long-acting insulin and continue as outpatient; patient had few low blood glucose readings the lowest one at 36; we will plan to discontinue sliding scale and try to maintain blood glucose with long-acting insulin; patient requesting to be discharged home; we will plan to continue to monitor blood glucose for another 24 hours with plan to discharge tomorrow if blood glucose remained stable BG remained stable and patient is nj'ed in a stable condition Patient Condition at Discharge: Fair Plan - Discharge Summary Discharge Rx Participant: No New Discharge Prescriptions: Continue Ferrous Sulfate [Iron (65 MG Elemental)] 325 mg PO DAILY Aspirin 81 mg PO DAILY #30 chew Vitamin B Complex 1 cap PO DAILY Ascorbic Acid [Vitamin C] 500 mg PO DAILY L.acidoph,Paracasei, B.lactis [Probiotic] 1 tab PO DAILY Apixaban [Eliquis] 5 mg PO BID #60 tab Cholecalciferol [Vitamin D3 (25 Mcg = 1000 Iu)] 50 mcg PO DAILY Amiodarone [Cordarone] 200 mg PO DAILY Potassium Chloride ER [K-Dur 20] 20 meq PO DAILY #90 tab Metoprolol Tartrate [Lopressor] 50 mg PO BID Diane 500 mg PO DAILY Inulin/Chromium Picolinate [Fiber Gummies Chew] 3 tab PO DAILY Furosemide [Lasix] 40 mg PO BID Discontinued Semaglutide [Rybelsus] 7 mg PO DAILY No Action Insulin Glargine,Hum.rec.anlog [Lantus Solostar] 22 unit SQ HS Enalapril Maleate [Vasotec] 5 mg PO DAILY #0 Albuterol Inhaler [Ventolin Hfa Inhaler] 2 puff INHALATION RT-QID PRN #1 inhaler PRN Reason: Shortness Of Breath Or Wheezing Discharge Medication List Ferrous Sulfate [Iron (65 MG Elemental)] 325 mg PO DAILY 02/12/19 [History] Aspirin 81 mg PO DAILY #30 chew 07/01/19 [Rx] Ascorbic Acid [Vitamin C] 500 mg PO DAILY 03/25/20 [History] L.acidoph,Paracasei, B.lactis [Probiotic] 1 tab PO DAILY 03/25/20 [History] Vitamin B Complex 1 cap PO DAILY 03/25/20 [History] Apixaban [Eliquis] 5 mg PO BID #60 tab 03/28/20 [Rx] Cholecalciferol [Vitamin D3 (25 Mcg = 1000 Iu)] 50 mcg PO DAILY 04/14/20 [History] Amiodarone [Cordarone] 200 mg PO DAILY 04/22/20 [History] Potassium Chloride ER [K-Dur 20] 20 meq PO DAILY #90 tab 04/25/20 [Rx] Metoprolol Tartrate [Lopressor] 50 mg PO BID 05/04/20 [History] Furosemide [Lasix] 40 mg PO BID 07/10/20 [History] Diane 500 mg PO DAILY 07/10/20 [History] Inulin/Chromium Picolinate [Fiber Gummies Chew] 3 tab PO DAILY 07/10/20 [History] Insulin Glargine,Hum.rec.anlog [Lantus Solostar] 22 unit SQ HS 07/19/20 [History] Albuterol Inhaler [Ventolin Hfa Inhaler] 2 puff INHALATION RT-QID PRN #1 inhaler 07/20/20 [Rx] Enalapril Maleate [Vasotec] 5 mg PO DAILY #0 07/20/20 [Rx] Follow up Appointment(s)/Referral(s): Last Barrios MD [Primary Care Provider] - 1-2 days (PLEASE CALL AND FOLLOW UP IN OFFICE ) Patient Instructions/Handouts: Hyperosmolar Hyperglycemic State (DC), Diabetic Hyperglycemia (DC) Discharge Disposition: HOME SELF-CARE
== END 2020-07-13 14:18 | disposition home or self-care (01) | DRG 638 ==
LOC: EC 15:47 → 3SCARD 17:47 → 2SICU 22:27 → 5NMEDONC 07-11 12:50 → 4SSUR 07-11 14:21
PROVIDERS: ADMIT Family Medicine; ATTEND Family Medicine
DX: E11.00 Type 2 diabetes mellitus with hyperosmolarity without nonketotic hyperglycemic-hyperosmolar coma (NKHHC) (principal); E87.1 Hypo-osmolality and hyponatremia; I48.20 Chronic atrial fibrillation, unspecified; I95.9 Hypotension, unspecified; J44.9 Chronic obstructive pulmonary disease, unspecified; Z79.4 Long term (current) use of insulin; Z20.822 Contact with and (suspected) exposure to COVID-19; E55.9 Vitamin D deficiency, unspecified; I10 Essential (primary) hypertension; M19.90 Unspecified osteoarthritis, unspecified site; I25.2 Old myocardial infarction; Z79.01 Long term (current) use of anticoagulants; Z79.82 Long term (current) use of aspirin; Z79.899 Other long term (current) drug therapy; Z95.5 Presence of coronary angioplasty implant and graft; Z86.74 Personal history of sudden cardiac arrest; Z87.891 Personal history of nicotine dependence; Z87.01 Personal history of pneumonia (recurrent); Z88.1 Allergy status to other antibiotic agents; Z91.012 Allergy to eggs; Z91.040 Latex allergy status; Z88.0 Allergy status to penicillin; Z88.8 Allergy status to other drugs, medicaments and biological substances; Z91.018 Allergy to other foods; Z83.3 Family history of diabetes mellitus; Z80.1 Family history of malignant neoplasm of trachea, bronchus and lung; Z82.5 Family history of asthma and other chronic lower respiratory diseases
CPT/HCPCS: 36415; 80051; 80053; 81001; 82009; 82565; 82803; 82947; 83036; 83735; 83930; 84100; 84132; 84520; 85025; 85027; 87636; 93005; 96374; 99285

== ENCOUNTER 2020-07-19 05:30 | Inpatient (IN) | payer MEDICARE, OTHER ==
--- NOTE | 2020-07-19 05:46 | ED ---
SOB HPI - General Stated Complaint: PERCY Time Seen by Provider: 07/19/20 05:37 Source: RN notes reviewed, old records reviewed Mode of arrival: EMS - History of Present Illness Initial Comments: This is a 73-year-old female to the ER for evaluation patient with severe shortness of breath weakness lightheadedness and dizziness. She presents by EMS for severe shortness of breath in significant distress secondary to work of breathing history obtained currently from EMS and patient's prior charting MD Complaint: shortness of breath -: days(s) Severity: moderate Severity scale (1-10): 6 Quality: dull Consistency: constant Improves With: nothing Worsens With: nothing Known History Of: COPD, congestive heart failure Context: recent URI, recent illness Associated Symptoms: cough, sputum production Treatments Prior to Arrival: oxygen, bronchodilator - Related Data Home Medications Medication Instructions Recorded Confirmed Ferrous Sulfate [Iron (65 MG 325 mg PO DAILY 02/12/19 07/10/20 Elemental)] Ascorbic Acid [Vitamin C] 500 mg PO DAILY 03/25/20 07/10/20 Enalapril Maleate [Vasotec] 5 mg PO BID 03/25/20 07/10/20 L.acidoph,Paracasei, B.lactis 1 tab PO DAILY 03/25/20 07/10/20 [Probiotic] Vitamin B Complex 1 cap PO DAILY 03/25/20 07/10/20 Cholecalciferol [Vitamin D3 (25 50 mcg PO DAILY 04/14/20 07/10/20 Mcg = 1000 Iu)] Amiodarone [Cordarone] 200 mg PO DAILY 04/22/20 07/10/20 Metoprolol Tartrate [Lopressor] 50 mg PO BID 05/04/20 07/10/20 Furosemide [Lasix] 40 mg PO BID 07/10/20 07/10/20 Diane 500 mg PO DAILY 07/10/20 07/10/20 Inulin/Chromium Picolinate [Fiber 3 tab PO DAILY 07/10/20 07/10/20 Gummies Chew] Previous Rx's Medication Instructions Recorded Aspirin 81 mg PO DAILY #30 chew 07/01/19 Apixaban [Eliquis] 5 mg PO BID #60 tab 03/28/20 Potassium Chloride ER [K-Dur 20] 20 meq PO DAILY #90 tab 04/25/20 Insulin Detemir (Levemir) [Levemir] 22 unit SQ HS #4 syr 07/13/20 Allergies Allergy/AdvReac Type Severity Reaction Status Date / Time Corticosteroids Allergy Unknown Unknown Verified 07/10/20 17:58 (Glucocorticoids) egg Allergy Unknown Unknown Verified 07/10/20 17:58 azithromycin [From Zithromax] Allergy Anaphylaxis Verified 07/10/20 17:58 banana Allergy Unknown Verified 07/10/20 17:58 carisoprodol [From Soma] Allergy Unknown Verified 07/10/20 17:58 ciprofloxacin [From Cipro] Allergy Unknown Verified 07/10/20 17:58 cortisone [Cortisone] Allergy Unknown Verified 07/10/20 17:58 cyclobenzaprine HCl Allergy Unknown Verified 07/10/20 17:58 [From Flexeril] latex Allergy Unknown Verified 07/10/20 17:58 Latex, Natural Rubber Allergy Unknown Verified 07/10/20 17:58 levofloxacin [From Levaquin] Allergy Anaphylaxis Verified 07/10/20 17:58 Penicillins Allergy Anaphylaxis Verified 07/10/20 17:58 Review of Systems ROS Statement: Those systems with pertinent positive or pertinent negative responses have been documented in the HPI. ROS Other: All systems not noted in ROS Statement are negative. Past Medical History Past Medical History: Atrial Fibrillation, Coronary Artery Disease (CAD), Chest Pain / Angina, Heart Failure, Diabetes Mellitus, Eye Disorder, Hypertension, Myocardial Infarction (MD), Osteoarthritis (OA), Pneumonia Additional Past Medical History / Comment(s): NIDDM type II, neuropathy bilateral feet, 01-03-14 MD/cardiac arrest/resp failure/intubation, UTIs, past L eye retinal bleed with surgery. Last Myocardial Infarction Date:: 01-03-14 History of Any Multi-Drug Resistant Organisms: None Reported Past Surgical History: Heart Catheterization, Heart Catheterization With Stent Additional Past Surgical History / Comment(s): Stent RCA 01-07-14, stent LAD 02/14/2019, L retinal bleed with surgery, bilateral cataract removal/lens impl ants, colonoscopy Past Anesthesia/Blood Transfusion Reactions: No Reported Reaction Date of Last Stent Placement:: 2013 Smoking Status: Former smoker - Past Family History Father Family Medical History: Cancer, Diabetes Mellitus Additional Family Medical History / Comment(s): age 70 from lung cancer Mother Family Medical History: COPD Additional Family Medical History / Comment(s): age 83 emphysema General Exam General appearance: alert, in no apparent distress, anxious, in distress Head exam: Present: atraumatic, normocephalic, normal inspection Eye exam: Present: normal appearance, PERRL, EOMI. Absent: scleral icterus, conjunctival injection, periorbital swelling ENT exam: Present: normal exam, mucous membranes moist Neck exam: Present: normal inspection. Absent: tenderness, meningismus, lymphadenopathy Respiratory exam: Present: normal lung sounds bilaterally. Absent: respiratory distress, wheezes, rales, rhonchi, stridor Cardiovascular Exam: Present: regular rate, normal rhythm, normal heart sounds. Absent: systolic murmur, diastolic murmur, rubs, gallop, clicks GI/Abdominal exam: Present: soft, normal bowel sounds. Absent: distended, t enderness, guarding, rebound, rigid Extremities exam: Present: normal inspection, full ROM, normal capillary refill. Absent: tenderness, pedal edema, joint swelling, calf tenderness Back exam: Present: normal inspection Neurological exam: Present: alert, oriented X3, CN II-XII intact Psychiatric exam: Present: normal affect, normal mood Skin exam: Present: warm, dry, intact, normal color. Absent: rash Course Vital Signs 07/19/20 07/19/20 07/19/20 05:41 06:11 06:19 Temperature 99.3 F Pulse Rate 85 77 76 Respiratory 24 Rate Blood Pressure 124/76 O2 Sat by Pulse 85 L Oximetry - Reevaluation(s) Reevaluation #1: 07/19/20 05:45 Medical record is reviewed Reevaluation #2: 07/19/20 06:46 Patient is improving with supplemental O2 and a prolonged breathing treatment here in the ER no need for BiPAP currently - Consultations Consultation #1: Spoke with MING to agrees to admit the patient Medical Decision Making - Medical Decision Making 75 female DF for evaluation. Patient Dese for evaluation of severe shortness of breath. Weakness. Patient states she can't catch her breath feels lightheaded and dizzy. Patient will be admitted for CHF exacerbation with hypoxia possible underlying pneumonia. Patient has had both vaccines in second shot was given greater than month ago - Lab Data Result diagrams: 07/19/20 05:48 07/19/20 05:48 Lab Results 07/19/20 07/19/2007/19/21 Range/Units 05:48 05:48 05:48 WBC 19.3 H (3.8-10.6) k/uL RBC 4.62 (3.80-5.40) m/uL Hgb 13.3 (11.4-16.0) gm/dL Hct 39.7 (34.0-46.0) % MCV 85.8 (80.0-100.0) fL MCH 28.8 (25.0-35.0) pg MCHC 33.6 (31.0-37.0) g/dL RDW 13.8 (11.5-15.5) % Plt Count 189 D (150-450) k/uL MPV 9.4 Neutrophils % 74 % Lymphocytes % 17 % Monocytes % 6 % Eosinophils % 2 % Basophils % 0 % Neutrophils # 14.3 H (1.3-7.7) k/uL Lymphocytes # 3.2 (1.0-4.8) k/uL Monocytes # 1.2 H (0-1.0) k/uL Eosinophils # 0.3 (0-0.7) k/uL Basophils # 0.1 (0-0.2) k/uL Sodium 135 L (137-145) mmol/L Potassium 4.2 (3.5-5.1) mmol/L Chloride 98 (98-107) mmol/L Carbon Dioxide 28 (22-30) mmol/L Anion Gap 9 mmol/L BUN 31 H (7-17) mg/dL Creatinine 1.53 H (0.52-1.04) mg/dL Est GFR (CKD-EPI)AfAm 38 (>60 ml/min/1.73 sqM) Est GFR (CKD-EPI)NonAf 33 (>60 ml/min/1.73 sqM) Glucose 306 H (74-99) mg/dL Plasma Lactic Acid Jona 1.7 (0.7-2.0) mmol/L Calcium 9.0 (8.4-10.2) mg/dL Phosphorus 3.3 (2.5-4.5) mg/dL Magnesium 1.9 (1.6-2.3) mg/dL Total Bilirubin 0.9 (0.2-1.3) mg/dL AST 25 (14-36) U/L ALT 16 (4-34) U/L Alkaline Phosphatase 108 (38-126) U/L Lactate Dehydrogenase 695 H (313-618) U/L C-Reactive Protein 2.5 H (<1.0) mg/dL Total Protein 6.5 (6.3-8.2) g/dL Albumin 3.7 (3.5-5.0) g/dL Acetone, Qual Negative (Negative) - EKG Data -: EKG Interpreted by Me (EKG shows sinus rhythm rate of 85 CA 174 QRS 146 QTc 490, L B B B) When compared to previous EKG there are: no significant change (Old EKG also shows left bundle-branch block) - Radiology Data Radiology results: report reviewed (Chest x-ray shows significant pulmonary edema), image reviewed Critical Care Time Critical Care Time: Yes Total Critical Care Time: 31 Disposition Clinical Impression: Congestive heart failure, CHF exacerbation, Community acquired pneumonia, Atrial fibrillation with RVR, Hyperglycemia Disposition: ADMITTED IP TO THIS [facility] Condition: Fair Is patient prescribed a controlled substance at d/c from ED?: No Referrals: Last Barrios MD [Primary Care Provider] - 1-2 days
[2020-07-19 05:57] LABS: Basophils # (A) 0.1 k/uL (0-0.2); Basophils % (A) 0 %; Eosinophils # (A) 0.3 k/uL (0-0.7); Eosinophils % (A) 2 %; HCT 39.7 % (34.0-46.0); HGB 13.3 gm/dL (11.4-16.0); Lymphocytes # (A) 3.2 k/uL (1.0-4.8); Lymphocytes % (A) 17 %; MCH 28.8 pg (25.0-35.0); MCHC 33.6 g/dL (31.0-37.0); MCV 85.8 fL (80.0-100.0); Mean Platelet Volume 9.4; Monocytes # (A) 1.2 k/uL (0-1.0); Monocytes % (A) 6 %; Neutrophils # (A) 14.3 k/uL (1.3-7.7); Neutrophils % (A) 74 %; RBC 4.62 m/uL (3.80-5.40); RDW 13.8 % (11.5-15.5); WBC 19.3 k/uL (3.8-10.6)
[2020-07-19 06:02] LABS: Platelet Count 189 k/uL (150-450)
[2020-07-19] MEDS ORDERED: IPRATROPIUM-ALBUTEROL 3 ML NEB INHALATION STA (06:02)
[2020-07-19 06:14] LABS: ALT 16 U/L (4-34); AST 25 U/L (14-36); African American GFR (CKD) 38 (>60 ml/min/1.73 sqM); Albumin 3.7 g/dL (3.5-5.0); Alkaline Phosphatase 108 U/L (38-126); Anion Gap 9 mmol/L; Blood Urea Nitrogen 31 mg/dL (7-17); C Reactive Protein 2.5 mg/dL (<1.0); Carbon Dioxide 28 mmol/L (22-30); Chloride 98 mmol/L (98-107); Glucose 306 mg/dL (74-99); LDH 695 U/L (313-618); Magnesium 1.9 mg/dL (1.6-2.3); Non-African American GFR(CKD) 33 (>60 ml/min/1.73 sqM); Phosphorus 3.3 mg/dL (2.5-4.5); Potassium 4.2 mmol/L (3.5-5.1); Sodium 135 mmol/L (137-145); Total Bilirubin 0.9 mg/dL (0.2-1.3); Total Protein 6.5 g/dL (6.3-8.2)
[2020-07-19 06:15] LABS: INR 1.1 (<1.2); Partial Thromboplastin Time 23.4 sec (22.0-30.0); Prothrombin Time 11.3 sec (9.0-12.0)
--- NOTE | 2020-07-19 06:29 | XR ---
EXAM: XR Chest, 1 View CLINICAL HISTORY: ITS.REASON XR Reason: Suspected COVID-19 pneumonia TECHNIQUE: Frontal view of the chest. COMPARISON: May 04, 2020 FINDINGS: Lungs: Lungs are mildly hyperexpanded with mild to moderate scattered interstitial infiltrates, greater than previous suggesting viral or atypical pneumonia superimposed upon mild emphysema versus CHF. Pleural space: Unremarkable. No pneumothorax. Heart: The cardiac silhouette is mildly enlarged, similar to previous. Mediastinum: Unremarkable. Bones/joints: Mild osteophytosis in the lower thoracic spine. Upper abdomen: No pneumoperitoneum under the diaphragm. IMPRESSION: Lungs are mildly hyperexpanded with mild to moderate scattered interstitial infiltrates, greater than previous suggesting viral or atypical pneumonia superimposed upon mild emphysema versus CHF.
[2020-07-19 06:44] LABS: D-Dimer 0.75 mg/L FEU (<0.60)
[2020-07-19] MEDS: FUROSEMIDE 10 MG/ML 4 ML VIAL IV SCH ×2 (06:49→16:58)
[2020-07-19 08:09] LABS: Glucose,Whole Blood 338 mg/dL (75-99)
[2020-07-19] MEDS: IPRATROPIUM-ALBUTEROL 3 ML NEB INHALATION SCH ×4 (08:36→19:49)
[2020-07-19 09:05] LABS: VBG PH 7.49 (7.31-7.41)
[2020-07-19] MEDS ORDERED: IPRATROPIUM-ALBUTEROL 3 ML NEB INHALATION PRN (10:34)
--- NOTE | 2020-07-19 10:34 | P.HPIM ---
History of Present Illness 75-year-old female came in with complaints of shortness of breath lightheadedness. Patient didn't give a clear history. Patient's symptoms started last night. Patient is complaining of cough without any significant sputum production. Patient denied any fever chills chest x-ray is consistent with pulmonary edema. Patient does have minimally elevated JVD no pedal edema. Patient does have low ejection fraction of 3540%. Patient had severe mitral tricuspid regurgitations and severe pulmonary hypertension. Patient does have history of COPD doesn't use any oxygen at home, prescription quit smoking in 2002 patient is not wheezing on exam patient was started on Lasix as well as IV steroids and was subsequently admitted patient's blood sugars and IV steroids will be discontinued as patient is not in COPD exacerbation patient doesn't have any lobar infiltrate on the chest x-ray does have diffuse bilateral infiltrates mostly congestive heart failure. Patient did receive Covid vaccine and patient is negative for COVID-19. Review of Systems REVIEW OF SYSTEMS: CONSTITUTIONAL: No fever, no malaise, no fatigue. HEENT: No recent visual problems or hearing problems. Denied any sore throat. CARDIOVASCULAR: No chest pain, orthopnea, PND, no palpitations, no syncope. PULMONARY: no hemoptysis. GASTROINTESTINAL: No diarrhea, no nausea, no vomiting, no abdominal pain. NEUROLOGICAL: No headaches, no weakness, no numbness. HEMATOLOGICAL: Denies any bleeding or petechiae. GENITOURINARY: Denies any burning micturition, frequency, or urgency. MUSCULOSKELETAL/RHEUMATOLOGICAL: Denies any joint pain, swelling, or any muscle pain. ENDOCRINE: Denies any polyuria or polydipsia. The rest of the 14-point review of systems is negative. Past Medical History Past Medical History: Atrial Fibrillation, Coronary Artery Disease (CAD), Chest Pain / Angina, Heart Failure, Diabetes Mellitus, Eye Disorder, Hypertension, Myocardial Infarction ([place]), Osteoarthritis (OA), Pneumonia Additional Past Medical History / Comment(s): NIDDM type II, neuropathy bilateral feet, 01-03-14 [place]/cardiac arrest/resp failure/intubation, UTIs, past L eye retinal bleed with surgery. Last Myocardial Infarction Date:: 01-03-14 History of Any Multi-Drug Resistant Organisms: None Reported Past Surgical History: Heart Catheterization, Heart Catheterization With Stent Additional Past Surgical History / Comment(s): Stent RCA 01-07-14, stent LAD 02/14/2019, L retinal bleed with surgery, bilateral cataract removal/lens implants, colonoscopy Past Anesthesia/Blood Transfusion Reactions: No Reported Reaction Date of Last Stent Placement:: 2013 Past Psychological History: No Psychological Hx Reported Additional Psychological History / Comment(s): Pt resides alone. She uses a walker. She does not drive, she gets rides from [employer] bus. Smoking Status: Former smoker Past Alcohol Use History: None Reported Additional Past Alcohol Use History / Comment(s): started smoking at age 27, smoked 1/2 ppd quit 2002 Past Drug Use History: None Reported - Past Family History Father Family Medical History: Cancer, Diabetes Mellitus Additional Family Medical History / Comment(s): age 70 from lung cancer Mother Family Medical History: COPD Additional Family Medical History / Comment(s): age 83 emphysema Medications and Allergies Home Medications Medication Instructions Recorded Confirmed Type Ferrous Sulfate [Iron (65 MG 325 mg PO DAILY 02/12/19 07/10/20 History Elemental)] Aspirin 81 mg PO DAILY #30 chew 07/01/19 07/10/20 Rx Ascorbic Acid [Vitamin C] 500 mg PO DAILY 03/25/20 07/10/20 History Enalapril Maleate [Vasotec] 5 mg PO BID 03/25/20 07/10/20 History L.acidoph,Paracasei, B.lactis 1 tab PO DAILY 03/25/20 07/10/20 History [Probiotic] Vitamin B Complex 1 cap PO DAILY 03/25/20 07/10/20 History Apixaban [Eliquis] 5 mg PO BID #60 tab 03/28/20 07/10/20 Rx Cholecalciferol [Vitamin D3 (25 50 mcg PO DAILY 04/14/20 07/10/20 History Mcg = 1000 Iu)] Amiodarone [Cordarone] 200 mg PO DAILY 04/22/20 07/10/20 History Potassium Chloride ER [K-Dur 20] 20 meq PO DAILY #90 tab 04/25/20 07/10/20 Rx Metoprolol Tartrate [Lopressor] 50 mg PO BID 05/04/20 07/10/20 History Furosemide [Lasix] 40 mg PO BID 07/10/20 07/10/20 History Diane 500 mg PO DAILY 07/10/20 07/10/20 History Inulin/Chromium Picolinate [Fiber 3 tab PO DAILY 07/10/20 07/10/20 History Gummies Chew] Insulin Detemir (Levemir) [Levemir] 22 unit SQ HS #4 syr 07/13/20 Rx Allergies Allergy/AdvReac Type Severity Reaction Status Date / Time Corticosteroids Allergy Unknown Unknown Verified 07/10/20 17:58 (Glucocorticoids) egg Allergy Unknown Unknown Verified 07/10/20 17:58 azithromycin [From Zithromax] Allergy Anaphylaxis Verified 07/10/20 17:58 banana Allergy Unknown Verified 07/10/20 17:58 carisoprodol [From Soma] Allergy Unknown Verified 07/10/20 17:58 ciprofloxacin [From Cipro] Allergy Unknown Verified 07/10/20 17:58 cortisone [Cortisone] Allergy Unknown Verified 07/10/20 17:58 cyclobenzaprine HCl Allergy Unknown Verified 07/10/20 17:58 [From Flexeril] latex Allergy Unknown Verified 07/10/20 17:58 Latex, Natural Rubber Allergy Unknown Verified 07/10/20 17:58 levofloxacin [From Levaquin] Allergy Anaphylaxis Verified 07/10/20 17:58 Penicillins Allergy Anaphylaxis Verified 07/10/20 17:58 Physical Exam Vitals: Vital Signs Temp Pulse Pulse Resp BP BP Pulse Ox 07/19/20 08:33 98 07/19/20 08:30 75 18 07/19/20 08:20 98.4 F 75 18 117/94 98 07/19/20 07:49 98.3 F 76 20 120/53 98 07/19/20 06:53 98.3 F 76 20 120/53 98 07/19/20 06:19 76 07/19/20 06:11 77 07/19/20 05:46 24 07/19/20 05:41 99.3 F 85 24 124/76 85 L Intake and Output 07/18/20 07/19/20 07/19/20 22:59 06:59 14:59 Other: Weight 77.111 kg 77.111 kg PHYSICAL EXAMINATION: GENERAL: The patient is alert and oriented x3, not in any acute distress. Well developed, well nourished. HEENT: Pupils are round and equally reacting to light. EOMI. No scleral icterus. No conjunctival pallor. Normocephalic, atraumatic. No pharyngeal erythema. No thyromegaly. CARDIOVASCULAR: S1 and S2 present. No murmurs, rubs, or gallops. There appears to be minimally elevated JVD although patient the was around 20 when I assess for JVD PULMONARY: Chest is clear to auscultation, no wheezing or crackles. ABDOMEN: Soft, nontender, nondistended, normoactive bowel sounds. No palpable organomegaly. MUSCULOSKELETAL: No joint swelling or deformity. EXTREMITIES: No cyanosis, clubbing, or pedal edema. NEUROLOGICAL: Gross neurological examination did not reveal any focal deficits. SKIN: No rashes. Results CBC & Chem 7: 07/19/20 05:48 07/19/20 05:48 Labs: Abnormal Lab Results - Last 24 Hours (Table) 07/19/20 07/19/20 07/19/20 Range/Units 05:48 05:48 05:48 WBC 19.3 H (3.8-10.6) k/uL Neutrophils # 14.3 H (1.3-7.7) k/uL Monocytes # 1.2 H (0-1.0) k/uL D-Dimer 0.75 H (<0.60) mg/L FEU VBG pH (7.31-7.41) VBG pCO2 (37-51) mmHg Sodium 135 L (137-145) mmol/L BUN 31 H (7-17) mg/dL Creatinine 1.53 H (0.52-1.04) mg/dL Glucose 306 H (74-99) mg/dL POC Glucose (mg/dL) (75-99) mg/dL Lactate Dehydrogenase 695 H (313-618) U/L Troponin I (0.000-0.034) ng/mL C-Reactive Protein 2.5 H (<1.0) mg/dL 07/19/20 07/19/20 07/19/20 Range/Units 08:08 08:31 08:31 WBC (3.8-10.6) k/uL Neutrophils # (1.3-7.7) k/uL Monocytes # (0-1.0) k/uL D-Dimer (<0.60) mg/L FEU VBG pH 7.49 H (7.31-7.41) VBG pCO2 33 L (37-51) mmHg Sodium (137-145) mmol/L BUN (7-17) mg/dL Creatinine (0.52-1.04) mg/dL Glucose (74-99) mg/dL POC Glucose (mg/dL) 338 H (75-99) mg/dL Lactate Dehydrogenase (313-618) U/L Troponin I 0.041 H* (0.000-0.034) ng/mL C-Reactive Protein (<1.0) mg/dL Thrombosis Risk Factor Assmnt - Choose All That Apply Each Factor Represents 1 point: Obesity (BMI >25) Each Risk Factor Represents 3 Points: Age 75 years or older Thrombosis Risk Factor Assessment Total Risk Factor Score: 4 Thrombosis Risk Factor Assessment Level: Moderate Risk Assessment and Plan Plan: -Shortness of breath, acute hypoxic respiratory failure: Secondary to congestive heart failure chronic systolic dysfunction with acute exacerbation. Patient will continue on Lasix patient is not wheezing at this time and do not believe patient is not wheezing and doesn't appear to be in COPD exacerbation IV s teroids will be discontinued. -COPD without any significant exacerbation -Acute renal failure feel azotemia secondary to congestive heart failure -Chronic kidney disease baseline creatinine around 1.3 chronic kidney disease is probably secondary to diabetic nephropathy -Type 2 diabetes mellitus with the uncontrolled elevated blood sugars secondary to systemic steroids which were discontinued patient will be started on inhalational treatments and inhaled steroids -Valvular heart disease with the severe mitral and tricuspid regurgitation [place]-severe pulmonary hypertension secondary to valvular heart disease -Atrial fibrillation patient is sinus rhythm does have left bundle branch block which is not new patient has minimally elevated troponin secondary to congestive heart failure exacerbation. Patient is on anticoagulation with resumed once medications are verified -Coronary artery disease -Hypertension
[2020-07-19 11:48] LABS: Glucose,Whole Blood 369 mg/dL (75-99)
[2020-07-19] MEDS: INSULIN ASPART (NovoLOG) 100 UNIT/ML VIAL SQ SCH ×3 (11:57→20:32)
[2020-07-19] MEDS ORDERED: methylPREDNISolone SOD SUCCI 125 MG/2 ML VIAL IV SCH (12:00)
--- NOTE | 2020-07-19 13:25 | P.CNPUL ---
History of Present Illness Consult date: 07/19/20 Reason for consult: dyspnea History of present illness: 75-year-old female patient, being requested up on the request of medicine for shortness of breath. The patient started feeling sick, tired, and she doesn't give any further details about her feeling sickness than feeling blah . The patient also admitted to have some shortness of breath. Some limited cough. For that reason she came into the hospital for further evaluation. She had some increased lower extremity edema. She is known to have congestion heart failure and the patient has a low ejection fraction of 25-30% and she has been followed up by Dr. coates 1 outpatient basis. She is also known to have history of coronary artery disease along with stenting of the RCA and mid LAD and she is known to have ischemic cardiomyopathy. Other comorbid conditions include hypertension and hyperlipidemia and the patient has had previous history of smoking. She was hospitalized in the past also for new onset atrial fibrillation with RVR and subsequently converted normal sinus mechanism. During her most recent hospitalization, her ejection fraction is improvement up to 35-40%. During this current admission, the patient had a white cell count 19.3, d-dimer was 0.7, troponins were 0.01 0.04 and 0.06 respectively. ProBNP level was 4770. Electrolytes were all within normal limits. Creatinine was at 1.5, nontender the patient's creatinine has been fluctuating over the years and during early hospitalization she has had higher creatinines as high as 2.4. She doesn't a component of chronic kidney disease as such. Since admission, the patient was given diuretics and she'll be feeling better. She is less short of breath. Her chest x-ray was consistent with CHF and she had some scattered interstitial infiltrates bilaterally consistent with CHF failure. Her EKG showing normal sinus mechanism with a lump bundle-branch block pattern. Mother the patient has a maternal long-term antibiotic ventilation and she's been taking Eliquis on outpatient basis along with amiodarone for approximately 2 fibrillation 12 mg by mouth twice a day and metoprolol 50 mg by mouth twice a day. Review of Systems CONSTITUTIONAL: No fever, no malaise, no fatigue. HEENT: No recent visual problems or hearing problems. Denied any sore throat. CARDIOVASCULAR: No chest pain, orthopnea, PND, no palpitations, no syncope. PULMONARY: no hemoptysis. GASTROINTESTINAL: No diarrhea, no nausea, no vomiting, no abdominal pain. NEUROLOGICAL: No headaches, no weakness, no numbness. HEMATOLOGICAL: Denies any bleeding or petechiae. GENITOURINARY: Denies any burning micturition, frequency, or urgency. MUSCULOSKELETAL/RHEUMATOLOGICAL: Denies any joint pain, swelling, or any muscle pain. ENDOCRINE: Denies any polyuria or polydipsia. The rest of the 14-point review of systems is negative. Past Medical History Past Medical History: Atrial Fibrillation, Coronary Artery Disease (CAD), Chest Pain / Angina, Heart Failure, Diabetes Mellitus, Eye Disorder, Hypertension, Myocardial Infarction ([place]), Osteoarthritis (OA), Pneumonia, Renal Disease Additional Past Medical History / Comment(s): NIDDM type II, neuropathy bilateral feet, 01-03-14 [place]/cardiac arrest/resp failure/intubation, UTIs, past L eye retinal bleed with surgery. Last Myocardial Infarction Date:: 01-03-14 History of Any Multi-Drug Resistant Organisms: None Reported Past Surgical History: Heart Catheterization, Heart Catheterization With Stent Additional Past Surgical History / Comment(s): Stent RCA 01-07-14, stent LAD 02/14/2019, L retinal bleed with surgery, bilateral cataract removal/lens implants, colonoscopy Past Anesthesia/Blood Transfusion Reactions: No Reported Reaction Date of Last Stent Placement:: 2013 Past Psychological History: No Psychological Hx Reported Additional Psychological History / Comment(s): Pt resides alone. She uses a walker. She does not drive, she gets rides from [employer] bus. Smoking Status: Former smoker Past Alcohol Use History: None Reported Additional Past Alcohol Use History / Comment(s): started smoking at age 27, smoked 1/2 ppd quit 2002 Past Drug Use History: None Reported - Past Family History Father Family Medical History: Cancer, Diabetes Mellitus Additional Family Medical History / Comment(s): age 70 from lung cancer Mother Family Medical History: COPD Additional Family Medical History / Comment(s): age 83 emphysema Medications and Allergies Home Medications Medication Instructions Recorded Confirmed Type Ferrous Sulfate [Iron (65 MG 325 mg PO DAILY 02/12/19 07/19/20 History Elemental)] Aspirin 81 mg PO DAILY #30 chew 07/01/19 07/19/20 Rx Ascorbic Acid [Vitamin C] 500 mg PO DAILY 03/25/20 07/19/20 History Enalapril Maleate [Vasotec] 5 mg PO BID 03/25/20 07/19/20 History L.acidoph,Paracasei, B.lactis 1 tab PO DAILY 03/25/20 07/19/20 History [Probiotic] Vitamin B Complex 1 cap PO DAILY 03/25/20 07/19/20 History Apixaban [Eliquis] 5 mg PO BID #60 tab 03/28/20 07/19/20 Rx Cholecalciferol [Vitamin D3 (25 50 mcg PO DAILY 04/14/20 07/19/20 History Mcg = 1000 Iu)] Amiodarone [Cordarone] 200 mg PO DAILY 04/22/20 07/19/20 History Potassium Chloride ER [K-Dur 20] 20 meq PO DAILY #90 tab 04/25/20 07/19/20 Rx Metoprolol Tartrate [Lopressor] 50 mg PO BID 05/04/20 07/19/20 History Furosemide [Lasix] 40 mg PO BID 07/10/20 07/19/20 History Diane 500 mg PO DAILY 07/10/20 07/19/20 History Inulin/Chromium Picolinate [Fiber 3 tab PO DAILY 07/10/20 07/19/20 History Gummies Chew] Insulin Glargine,Hum.rec.anlog 22 unit SQ HS 07/19/20 07/19/20 History [Lantus Solostar] Allergies Allergy/AdvReac Type Severity Reaction Status Date / Time Corticosteroids Allergy Unknown Unknown Verified 07/19/20 10:35 (Glucocorticoids) egg Allergy Unknown Unknown Verified 07/19/20 10:35 azithromycin [From Zithromax] Allergy Anaphylaxis Verified 07/19/20 10:35 banana Allergy Unknown Verified 07/19/20 10:35 carisoprodol [From Soma] Allergy Unknown Verified 07/19/20 10:35 ciprofloxacin [From Cipro] Allergy Unknown Verified 07/19/20 10:35 cortisone [Cortisone] Allergy Unknown Verified 07/19/20 10:35 cyclobenzaprine HCl Allergy Unknown Verified 07/19/20 10:35 [From Flexeril] latex Allergy Unknown Verified 07/19/20 10:35 Latex, Natural Rubber Allergy Unknown Verified 07/19/20 10:35 levofloxacin [From Levaquin] Allergy Anaphylaxis Verified 07/19/20 10:35 Penicillins Allergy Anaphylaxis Verified 07/19/20 10:35 Physical Exam Vitals: Vital Signs Temp Pulse Pulse Resp BP BP Pulse Ox 07/19/20 11:52 95 07/19/20 08:33 98 07/19/20 08:30 75 18 07/19/20 08:20 98.4 F 75 18 117/94 98 07/19/20 07:49 98.3 F 76 20 120/53 98 07/19/20 06:53 98.3 F 76 20 120/53 98 07/19/20 06:19 76 07/19/20 06:11 77 07/19/20 05:46 24 07/19/20 05:41 99.3 F 85 24 124/76 85 L Intake and Output 07/18/20 07/19/20 07/19/20 22:59 06:59 14:59 Other: Weight 77.111 kg 77.111 kg GENERAL: The patient is alert and oriented x3, not in any acute distress. Well developed, well nourished. Head exam was generally normal. There was no scleral icterus or corneal arcus. Mucous membranes were moist. HEENT: Pupils are round and equally reacting to light. EOMI. No scleral icterus. No conjunctival pallor. Normocephalic, atraumatic. No pharyngeal erythema. No thyromegaly. CARDIOVASCULAR: S1 and S2 present. No murmurs, rubs, or gallops. There appears to be minimally elevated JVD although patient the was around 20 when I assess for JVD PULMONARY: Chest is clear to auscultation, no wheezing or crackles. ABDOMEN: Soft, nontender, nondistended, normoactive bowel sounds. No palpable organomegaly. MUSCULOSKELETAL: No joint swelling or deformity. EXTREMITIES: No cyanosis, clubbing, or pedal edema. NEUROLOGICAL: Gross neurological examination did not reveal any focal deficits. Examination of the skin revealed no evidence of significant rashes, suspicious appearing nevi or other concerning lesions. Results - Laboratory Findings CBC and BMP: 07/19/20 05:48 07/19/20 05:48 PT/INR, D-dimer PT 11.3 sec (9.0-12.0) 07/19/20 05:48 INR 1.1 (<1.2) 07/19/20 05:48 D-Dimer 0.75 mg/L FEU (<0.60) H 07/19/20 05:48 Abnormal lab findings: Abnormal Labs 07/19/20 07/19/20 07/19/20 05:48 05:48 05:48 WBC 19.3 H Neutrophils # 14.3 H Monocytes # 1.2 H D-Dimer 0.75 H VBG pH VBG pCO2 Sodium 135 L BUN 31 H Creatinine 1.53 H Glucose 306 H POC Glucose (mg/dL) Lactate Dehydrogenase 695 H Troponin I C-Reactive Protein 2.5 H 07/19/20 07/19/20 07/19/20 08:08 08:31 08:31 WBC Neutrophils # Monocytes # D-Dimer VBG pH 7.49 H VBG pCO2 33 L Sodium BUN Creatinine Glucose POC Glucose (mg/dL) 338 H Lactate Dehydrogenase Troponin I 0.041 H* C-Reactive Protein 07/19/20 07/19/20 11:36 11:44 WBC Neutrophils # Monocytes # D-Dimer VBG pH VBG pCO2 Sodium BUN Creatinine Glucose POC Glucose (mg/dL) 369 H Lactate Dehydrogenase Troponin I 0.061 H* C-Reactive Protein - Diagnostic Findings Chest x-ray: image reviewed Assessment and Plan Plan: 1 shortness of breath on the basis of chronic CHF and some mild component of decompensated heart failure that was noted at time of the admission. Chest x- ray is consistent with some CHF and the patient's proBNP level is elevated. No significant troponin leak and EKGs indicating a left bundle branch block pattern, normal sinus mechanism and the patient is responding to diuretics. 2 coronary artery disease with previous coronary stenting of the RCA and mid LAD. The patient has had also previous history of massive [place] complicated by cardiac arrest requiring intubation mechanical ventilation. 3 ischemic cardiomyopathy and the most recent echocardiogram showing an ejection fraction of around 35% 4 paroxysmal atrial fibrillation 5 chronic kidney disease 6 COPD 7 hypertension 8 hyperlipidemia Plan Continue Lasix IV Wean this patient off oxygen and the patient will be checked on room air oxygen and oxygen will be discontinued if the saturation remains above 90% Resume all home medications Overall condition is stable. Cardiology consultation. We'll continue to follow.
[2020-07-19] MEDS: ASCORBIC ACID 500 MG TAB PO SCH (13:32)
[2020-07-19] MEDS: AMIODARONE 200 MG TAB PO SCH (13:33)
[2020-07-19] MEDS: APIXABAN 5 MG TAB PO SCH ×2 (13:33→20:31)
--- NOTE | 2020-07-19 14:00 | ECHOF ---
Referral Reason:Heart Failure MEASUREMENTS -------- HEIGHT: 152.4 cm WEIGHT: 77.1 kg BP: 120/53 RVIDd: 2.8 cm (< 3.3) IVSd: 1.3 cm (0.6 - 1.1) LVIDd: 4.9 cm (3.9 - 5.3) LVPWd: 1.0 cm (0.6 - 1.1) IVSs: 1.5 cm LVIDs: 3.5 cm LVPWs: 1.7 cm LA Diam: 4.0 cm (2.7 - 3.8) LAESV Index (A-L): 33.16 ml/m Ao Diam: 2.9 cm (2.0 - 3.7) AV Cusp: 1.8 cm (1.5 - 2.6) MV EXCURSION: 14.317 mm (> 18.000) MV EF SLOPE: 45 mm/s (70 - 150) EPSS: 1.1 cm MV E Rafael: 1.01 m/s MV DecT: 199 ms MV A Rafael: 1.10 m/s MV E/A Ratio: 0.93 RAP: 5.00 mmHg RVSP: 65.65 mmHg FINDINGS -------- Sinus rhythm. This was a technically good study. The left ventricular size is normal. There is mild concentric left ventricular hypertrophy. Overa ll left ventricular systolic function is low-normal with, an EF between 50 - 55 %. The right ventricle is normal in size. Normal LA size by volume 22+/-6 ml/m2. The right atrium is normal in size. Interatrial and interventricular septum intact. There is mild aortic valve sclerosis. The mitral valve leaflets are mildly thickened. Mild mitral annular calcification present. Mild-t o-moderate mitral regurgitation is present. [id number] tricuspid regurgitation present. There is severe pulmonary hypertension. The rig ht ventricular systolic pressure, as measured by Doppler, is 65.65mmHg. Trace/mild (physiologic) pulmonic regurgitation. The aortic root size is normal. Normal inferior vena cava with normal inspiratory collapse consistent with estimated right atrial pre ssure of 5 mmHg. There is no pericardial effusion. CONCLUSIONS -------- 1. The left ventricular size is normal. 2. There is mild concentric left ventricular hypertrophy. 3. Overall left ventricular systolic function is low-normal with, an EF between 50 - 55 %. 4. Normal LA size by volume 22+/-6 ml/m2. 5. There is mild aortic valve sclerosis. 6. The mitral valve leaflets are mildly thickened. 7. Mild mitral annular calcification present. 8. Zccd-ei-zryrriha mitral regurgitation is present. 9. [id number] tricuspid regurgitation present. 10. There is severe pulmonary hypertension. 11. The right ventricular systolic pressure, as measured by Doppler, is 65.65mmHg. 12. Trace/mild (physiologic) pulmonic regurgitation. 13. There is no pericardial effusion. [employer] SUPERVISOR: Melania Yung RDCS
[2020-07-19 16:44] LABS: Glucose,Whole Blood 493 mg/dL (75-99)
[2020-07-19 16:44] LABS: Glucose,Whole Blood 523 mg/dL (75-99)
[2020-07-19] MEDS ORDERED: INSULIN ASPART (NovoLOG) 100 UNIT/ML VIAL SQ ONE ×2 (16:47→20:23)
[2020-07-19] MEDS: BUDESONIDE 0.5 MG/2 ML NEBU INHALATION SCH (19:49)
[2020-07-19 20:05] LABS: Glucose,Whole Blood 468 mg/dL (75-99)
[2020-07-19] MEDS: METOPROLOL TARTRATE 50 MG TAB PO SCH (20:31)
[2020-07-19] MEDS ORDERED: INSULIN DETEMIR (LEVEMIR) 100 UNIT/ML SYR SQ SCH (21:00)
[2020-07-20 02:17] LABS: Glucose,Whole Blood 102 mg/dL (75-99)
[2020-07-20] MEDS: FUROSEMIDE 10 MG/ML 4 ML VIAL IV SCH (06:05)
[2020-07-20 07:07] LABS: Glucose,Whole Blood 155 mg/dL (75-99)
[2020-07-20] MEDS: INSULIN ASPART (NovoLOG) 100 UNIT/ML VIAL SQ SCH ×2 (07:34→12:09)
[2020-07-20] MEDS: METOPROLOL TARTRATE 50 MG TAB PO SCH (07:35)
[2020-07-20] MEDS: ASCORBIC ACID 500 MG TAB PO SCH (07:36)
[2020-07-20] MEDS: APIXABAN 5 MG TAB PO SCH (07:36)
[2020-07-20 07:54] VITALS: RESP 16
[2020-07-20] MEDS: BUDESONIDE 0.5 MG/2 ML NEBU INHALATION SCH (08:16)
[2020-07-20] MEDS: IPRATROPIUM-ALBUTEROL 3 ML NEB INHALATION SCH ×3 (08:16→16:11)
[2020-07-20] MEDS ORDERED: ASPIRIN 81 MG PO SCH (09:00)
[2020-07-20] MEDS ORDERED: FERROUS SULFATE 325 MG TAB PO SCH (09:00)
[2020-07-20] MEDS ORDERED: CHOLECALCIFEROL 25 MCG (1000 IU) TABLET PO SCH (09:00)
[2020-07-20] MEDS: AMIODARONE 200 MG TAB PO SCH (09:09)
[2020-07-20 09:42] LABS: African American GFR (CKD) 38.5 (60.0-200.0); Anion Gap 6.2 mmol/L (4.00-12.00); Calcium 8.5 mg/dL (8.7-10.3); Carbon Dioxide 28.8 mmol/L (21.6-31.8); Magnesium 1.9 mg/dL (1.5-2.4); Non-African American GFR(CKD) 33.3 (60.0-200.0); Potassium 3.9 mmol/L (3.5-5.5)
--- NOTE | 2020-07-20 11:10 | P.PN ---
Subjective Progress Note Date: 07/20/20 75-year-old female patient, being requested up on the request of medicine for shortness of breath. The patient started feeling sick, tired, and she doesn't give any further details about her feeling sickness than feeling blah . The patient also admitted to have some shortness of breath. Some limited cough. For that reason she came into the hospital for further evaluation. She had some increased lower extremity edema. She is known to have congestion heart failure and the patient has a low ejection fraction of 25-30% and she has been followed up by to 1 outpatient basis. She is also known to have history of coronary artery disease along with stenting of the RCA and mid LAD and she is known to have ischemic cardiomyopathy. Other comorbid conditions include hypertension and hyperlipidemia and the patient has had previous history of smoking. She was hospitalized in the past also for new onset atrial fibrillation with RVR and subsequently converted normal sinus mechanism. During her most recent hospitalization, her ejection fraction is improvement up to 35-40%. During this current admission, the patient had a white cell count 19.3, d-dimer was 0.7, troponins were 0.01 0.04 and 0.06 respectively. ProBNP level was 4770. Electrolytes were all within normal limits. Creatinine was at 1.5, nontender the patient's creatinine has been fluctuating over the years and during early hospitalization she has had higher creatinines as high as 2.4. She doesn't a component of chronic kidney disease as such. Since admission, the patient was given diuretics and she'll be feeling better. She is less short of breath. Her chest x-ray was consistent with CHF and she had some scattered interstitial infiltrates bilaterally consistent with CHF failure. Her EKG showing normal sinus mechanism with a lump bundle-branch block pattern. Mother the patient has a maternal long-term antibiotic ventilation and she's been taking Eliquis on outpatient basis along with amiodarone for pAF 200 mg by mouth twice a day and metoprolol 50 mg by mouth twice a day. 07/20/2020, the patient is feeling much better. She is on room air oxygen. No respiratory difficulties in her lungs are essentially clear. Pulse ox is up to 99% on room air oxygen. Echocardiogram was done and the patient ejection fraction showed further improvement in her EF is up to 50-55% with mild aortic sclerosis, and there was moderate this degree of pulmonary hypertension with a PA pressure of 65 in addition to mild to moderate MR, [id number] TR, no pericardial effusion. Her current rhythm is sinus and the patient remains on amiodarone, metoprolol and Eliquis on a long-term basis. Her creatinine remains at 1.5 which is stable compared to yesterday and the patient is on Lasix at a dose of 40 mg every 12 hours. This can be obviously transitioned to oral Lasix. She remains on Levemir insulin 28 units at bedtime in addition to a sliding scale coverage. Objective - Vital Signs Vital signs: Vital Signs Temp 97.5 F L 07/20/20 07:53 Pulse 55 L 07/20/20 07:53 Resp 16 07/20/20 07:53 BP 133/67 07/20/20 07:53 Pulse Ox 100 07/20/20 07:53 Intake & Output 07/19/20 07/20/20 07/20/20 18:59 06:59 18:59 Output Total 3 Balance -3 Weight 77.111 kg Output: Urine 3 Other: Voiding Method Toilet # Voids 1 1 - Exam GENERAL: The patient is alert and oriented x3, not in any acute distress. Well developed, well nourished. Head exam was generally normal. There was no scleral icterus or corneal arcus. Mucous membranes were moist. HEENT: Pupils are round and equally reacting to light. EOMI. No scleral icterus. No conjunctival pallor. Normocephalic, atraumatic. No pharyngeal erythema. No thyromegaly. CARDIOVASCULAR: S1 and S2 present. No murmurs, rubs, or gallops. There appears to be minimally elevated JVD although patient the was around 20 when I assess for JVD PULMONARY: Chest is clear to auscultation, no wheezing or crackles. ABDOMEN: Soft, nontender, nondistended, normoactive bowel sounds. No palpable organomegaly. MUSCULOSKELETAL: No joint swelling or deformity. EXTREMITIES: No cyanosis, clubbing, or pedal edema. NEUROLOGICAL: Gross neurological examination did not reveal any focal deficits. Examination of the skin revealed no evidence of significant rashes, suspicious appearing nevi or other concerning lesions. - Labs CBC & Chem 7: 07/19/20 05:48 07/20/20 06:17 Labs: Abnormal Lab Results - Last 24 Hours (Table) 07/19/20 07/19/20 07/19/20 Range/Units 11:36 11:44 16:41 BUN (9.0-27.0) mg/dL Est GFR (CKD-EPI)AfAm (60.0-200.0) Est GFR (CKD-EPI)NonAf (60.0-200.0) BUN/Creatinine Ratio (12.00-20.00) Ratio Glucose (70-110) mg/dL POC Glucose (mg/dL) 369 H 523 H (75-99) mg/dL Calcium (8.7-10.3) mg/dL Troponin I 0.061 H* (0.000-0.034) ng/mL 07/19/20 07/19/20 07/20/20 Range/Units 16:42 19:59 02:12 BUN (9.0-27.0) mg/dL Est GFR (CKD-EPI)AfAm (60.0-200.0) Est GFR (CKD-EPI)NonAf (60.0-200.0) BUN/Creatinine Ratio (12.00-20.00) Ratio Glucose (70-110) mg/dL POC Glucose (mg/dL) 493 H 468 H 102 H (75-99) mg/dL Calcium (8.7-10.3) mg/dL Troponin I (0.000-0.034) ng/mL 07/20/20 07/20/20 Range/Units 06:17 07:07 BUN 42.0 H (9.0-27.0) mg/dL Est GFR (CKD-EPI)AfAm 38.5 L (60.0-200.0) Est GFR (CKD-EPI)NonAf 33.3 L (60.0-200.0) BUN/Creatinine Ratio 28.00 H (12.00-20.00) Ratio Glucose 150 H (70-110) mg/dL POC Glucose (mg/dL) 155 H (75-99) mg/dL Calcium 8.5 L (8.7-10.3) mg/dL Troponin I (0.000-0.034) ng/mL Assessment and Plan Plan: 1 shortness of breath on the basis of chronic CHF and some mild component of dec ompensated heart failure that was noted at time of the admission. Chest x-ray is consistent with some CHF and the patient's proBNP level is elevated. No significant troponin leak and EKGs indicating a left bundle branch block pattern, normal sinus mechanism and the patient is responding to diuretics. On today's evaluation, the patient is on room air oxygen. The chest x-ray needs to be repeated to evaluate the volume status. Echocardiogram was noted. 2 coronary artery disease with previous coronary stenting of the RCA and mid LAD. The patient has had also previous history of massive NM complicated by cardiac arrest requiring intubation mechanical ventilation. 3 ischemic cardiomyopathy and the most recent echocardiogram showing an ejection fraction of around 35% 4 paroxysmal atrial fibrillation 5 chronic kidney disease 6 COPD 7 hypertension 8 hyperlipidemia Plan Switch this patient oral Lasix 40 mg by mouth twice a day Repeat chest x-ray Room air oxygen Resume all home medications Overall condition is stable. Discharge from medicine. Continue rest of the treatment including the anticoagulation. condition is stable.
[2020-07-20 11:38] LABS: Glucose,Whole Blood 182 mg/dL (75-99)
--- NOTE | 2020-07-20 12:28 | XR ---
EXAMINATION TYPE: XR chest 1V portable DATE OF EXAM: 07/20/2020 COMPARISON: 07/19/2020 INDICATION: CHF TECHNIQUE: Single frontal view of the chest is obtained. FINDINGS: The heart size is normal. The pulmonary vasculature is normal. The lungs are clear. Previous infiltrates have largely resolved. IMPRESSION: 1. No acute pulmonary process.
[2020-07-20] MEDS ORDERED: AMIODARONE 200 MG TAB PO SCH (13:00)
--- NOTE | 2020-07-20 13:39 | P.DS ---
Providers Date of admission: 07/19/20 06:42 Attending physician: Alexandra Appiah Consults: 07/19/20 06:42 Consult Physician Routine Consulting Provider: Med Concepcion Consult Reason/Comments: copd,pna,covid Do you want consulting provider notified?: Yes Consult Physician Routine Consulting Provider: Mita Simpson Consult Reason/Comments: chf Do you want consulting provider notified?: Yes Primary care physician: Last Barrios [facility] Course: 75-year-old female came in with complaints of shortness of breath lightheadedness. Patient didn't give a clear history. Patient's symptoms started last night. Patient is complaining of cough without any significant sputum production. Patient denied any fever chills chest x-ray is consistent with pulmonary edema. Patient does have minimally elevated JVD no pedal edema. Patient does have low ejection fraction of 3540%. Patient had severe mitral tricuspid regurgitations and severe pulmonary hypertension. Patient does have history of COPD doesn't use any oxygen at home, prescription quit smoking in 2002 patient is not wheezing on exam patient was started on Lasix as well as IV steroids and was subsequently admitted patient's blood sugars and IV steroids will be discontinued as patient is not in COPD exacerbation patient doesn't have any lobar infiltrate on the chest x-ray does have diffuse bilateral infiltrates mostly congestive heart failure. Patient did receive Covid vaccine and patient is negative for COVID-19. 07/20/2020 Patient is on room air without any oxygen echocardiogram showed normal ejection fraction with mild diuretics versus moderate pulmonary hypertension. Patient wanted to be discharged. Patient was switched to oral Lasix will be discharged today patient 3 serum creatinine remained stable at 1.5 which is close to her baseline of around 1.3-1.5. Patient is clear to auscultation chest x-ray showed complete resolution of pulmonary edema. Blood sugars are well controlled PHYSICAL EXAMINATION: GENERAL: The patient is alert and oriented x3, not in any acute distress. Well developed, well nourished. HEENT: Pupils are round and equally reacting to light. EOMI. No scleral icterus. No conjunctival pallor. Normocephalic, atraumatic. No pharyngeal erythema. No thyromegaly. CARDIOVASCULAR: S1 and S2 present. No murmurs, rubs, or gallops. PULMONARY: Chest is clear to auscultation, no wheezing or crackles. ABDOMEN: Soft, nontender, nondistended, normoactive bowel sounds. No palpable organomegaly. MUSCULOSKELETAL: No joint swelling or deformity. EXTREMITIES: No cyanosis, clubbing, or pedal edema. NEUROLOGICAL: Gross neurological examination did not reveal any focal deficits. SKIN: No rashes. Assessment and Plan Plan: -Shortness of breath, acute hypoxic respiratory failure: Secondary to congestive heart failure chronic systolic dysfunction with acute exacerbation. Patient is clinically doing well will be discharged today on oral Lasix -COPD without any significant exacerbation -Acute renal failure feel azotemia secondary to congestive heart failure -Chronic kidney disease baseline creatinine around 1.3 chronic kidney disease is probably secondary to diabetic nephropathy -Type 2 diabetes mellitus with the uncontrolled elevated blood sugars secondary to systemic steroids were discontinued yesterday with well-controlled blood sugars today -Valvular heart disease with the severe mitral and tricuspid regurgitation -Moderate pulmonary hypertension secondary to valvular heart disease -Atrial fibrillation patient is sinus rhythm does have left bundle branch block which is not new patient has minimally elevated troponin secondary to congestive heart failure exacerbation. Cardiology evaluated the patient. -Coronary artery disease -Hypertension Patient Condition at Discharge: Fair Plan - Discharge Summary New Discharge Prescriptions: New Albuterol Inhaler [Ventolin Hfa Inhaler] 2 puff INHALATION RT-QID PRN #1 inhaler PRN Reason: Shortness Of Breath Or Wheezing Continue Ferrous Sulfate [Iron (65 MG Elemental)] 325 mg PO DAILY Aspirin 81 mg PO DAILY #30 chew Vitamin B Complex 1 cap PO DAILY Ascorbic Acid [Vitamin C] 500 mg PO DAILY L.acidoph,Paracasei, B.lactis [Probiotic] 1 tab PO DAILY Apixaban [Eliquis] 5 mg PO BID #60 tab Cholecalciferol [Vitamin D3 (25 Mcg = 1000 Iu)] 50 mcg PO DAILY Amiodarone [Cordarone] 200 mg PO DAILY Potassium Chloride ER [K-Dur 20] 20 meq PO DAILY #90 tab Metoprolol Tartrate [Lopressor] 50 mg PO BID Diane 500 mg PO DAILY Inulin/Chromium Picolinate [Fiber Gummies Chew] 3 tab PO DAILY Furosemide [Lasix] 40 mg PO BID Insulin Glargine,Hum.rec.anlog [Lantus Solostar] 22 unit SQ HS Changed Enalapril Maleate [Vasotec] 5 mg PO DAILY #0 Discharge Medication List Ferrous Sulfate [Iron (65 MG Elemental)] 325 mg PO DAILY 02/12/19 [History] Aspirin 81 mg PO DAILY #30 chew 07/01/19 [Rx] Ascorbic Acid [Vitamin C] 500 mg PO DAILY 03/25/20 [History] L.acidoph,Paracasei, B.lactis [Probiotic] 1 tab PO DAILY 03/25/20 [History] Vitamin B Complex 1 cap PO DAILY 03/25/20 [History] Apixaban [Eliquis] 5 mg PO BID #60 tab 03/28/20 [Rx] Cholecalciferol [Vitamin D3 (25 Mcg = 1000 Iu)] 50 mcg PO DAILY 04/14/20 [Histor y] Amiodarone [Cordarone] 200 mg PO DAILY 04/22/20 [History] Potassium Chloride ER [K-Dur 20] 20 meq PO DAILY #90 tab 04/25/20 [Rx] Metoprolol Tartrate [Lopressor] 50 mg PO BID 05/04/20 [History] Furosemide [Lasix] 40 mg PO BID 07/10/20 [History] Diane 500 mg PO DAILY 07/10/20 [History] Inulin/Chromium Picolinate [Fiber Gummies Chew] 3 tab PO DAILY 07/10/20 [History] Insulin Glargine,Hum.rec.anlog [Lantus Solostar] 22 unit SQ HS 07/19/20 [History] Albuterol Inhaler [Ventolin Hfa Inhaler] 2 puff INHALATION RT-QID PRN #1 inhaler 07/20/20 [Rx] Enalapril Maleate [Vasotec] 5 mg PO DAILY #0 07/20/20 [Rx] Follow up Appointment(s)/Referral(s): Last Barrios MD [Primary Care Provider] - 3 Days Ambulatory/Diagnostic Orders: Basic Metabolic Panel [LAB.AMB] Time Frame: 3 Days, Location: None Selected Discharge Disposition: HOME WITH HOME HEALTH SERVICES
[2020-07-20 14:58] VITALS: BP 129/64; PULSE 58; TEMP 98
--- NOTE | 2020-07-20 15:18 | CONS ---
CONSULTATION This is a 75-year-old lady with a history of CAD, previous multivessel PCI involving the LAD and RCA in the past by Dr. Benavidez. She sees Dr. Chavez on a regular basis in the office. She comes in with complaints of having shortness of breath. She was apparently doing well and had some lightheadedness, dizziness, shortness of breath, came into the hospital. After arrival, she has been resting comfortably. Does not have any major symptoms. PAST MEDICAL HISTORY: 1. Paroxysmal atrial fibrillation. 2. Diabetes. 3. Hypertension. 4. History of CAD with previous PCI of LAD and RCA. She has usually ejection fraction of 45% or so. MEDICATIONS: Medications at home include: Insulin, metoprolol tartrate 50 mg b.i.d., Lasix 40 mg b.i.d., Vasotec 5 mg daily, aspirin 81 mg daily, apixaban 5 mg b.i.d., amiodarone 200 mg daily, and vitamin supplements. PHYSICAL EXAMINATION: On examination, blood pressure is 130/70, pulse rate is 55 per minute, sinus. HEENT unremarkable. Fundus was not examined by me. NECK is supple. There is no JVD. I do not hear any carotid bruit. HEART exam reveals S1, S2 heard normally with a soft ejection systolic murmur at the base. Second heart sound is preserved. LUNGS revealed diminished air entry. ABDOMEN is soft, nontender. Lower EXTREMITIES reveal diminished pulses. CENTRAL NERVOUS SYSTEM grossly within normal limits. EKG revealed sinus mechanism, leftward axis, left bundle branch block pattern. Echo revealed ejection fraction of about 50% to 55% with mild aortic valve stenosis, mild to moderate mitral regurgitation and moderate to severe pulmonary hypertension with right-sided pressures of 65 mmHg. IMPRESSION: 1. Shortness of breath, probably more related to her pulmonary condition then the cardiac condition. 2. Coronary artery disease with ejection fraction in the 50% range with previous PCI of LAD and RCA. 3. Hypertension. 4. Hyperlipidemia. 5. Chronic obstructive pulmonary disease, oxygen dependent. RECOMMENDATIONS: From a cardiac standpoint, no additional recommendations are necessary. Her shortness of breath appears to be more or less related to exacerbation of COPD rather than CHF. I would recommend we continue all other current medications, aspirin 81 mg and apixaban 5 mg b.i.d. to be continued. I explained to the patient that LV function is actually better and I do not see any evidence of significant systolic heart failure. Her BNP is modestly elevated at 4770. However, troponin elevation is flat at 0.06 and 0.04. No intervention from a cardiac standpoint. On reviewing the chest x-ray, there is a suggestion of possible pneumonia as well. May be more of an interstitial pneumonia on the initial x-ray. However, this seems to have improved already. I would recommend that we cautiously diurese her and white count is also elevated. I will request Dr. Appiah to consider her antibiotics if this is indeed a pneumonia or bronchitis. I do not believe we are dealing with any significant heart failure. Thank you very much for the consult. MMODL / IJN: [id number] /
[2020-07-21] MEDS ORDERED: FUROSEMIDE 40 MG TAB PO SCH (09:00)
== END 2020-07-20 16:15 | disposition home health service (06) | DRG 291 ==
LOC: EC 05:30 → 4SSUR 06:42
PROVIDERS: ADMIT Hospitalist; ATTEND Hospitalist
DX: I13.0 Hypertensive heart and chronic kidney disease with heart failure and stage 1 through stage 4 chronic kidney disease, or unspecified chronic kidney disease (principal); J18.9 Pneumonia, unspecified organism; J96.01 Acute respiratory failure with hypoxia; I50.23 Acute on chronic systolic (congestive) heart failure; J44.0 Chronic obstructive pulmonary disease with (acute) lower respiratory infection; N17.9 Acute kidney failure, unspecified; I48.0 Paroxysmal atrial fibrillation; I25.10 Atherosclerotic heart disease of native coronary artery without angina pectoris; I25.2 Old myocardial infarction; E11.65 Type 2 diabetes mellitus with hyperglycemia; E11.22 Type 2 diabetes mellitus with diabetic chronic kidney disease; Z87.891 Personal history of nicotine dependence; Z83.3 Family history of diabetes mellitus; Z80.1 Family history of malignant neoplasm of trachea, bronchus and lung; Z82.5 Family history of asthma and other chronic lower respiratory diseases; I44.7 Left bundle-branch block, unspecified; I08.1 Rheumatic disorders of both mitral and tricuspid valves; I27.20 Pulmonary hypertension, unspecified; Z20.822 Contact with and (suspected) exposure to COVID-19; Z79.01 Long term (current) use of anticoagulants; Z79.82 Long term (current) use of aspirin; Z79.4 Long term (current) use of insulin; I25.5 Ischemic cardiomyopathy; Z95.5 Presence of coronary angioplasty implant and graft; E78.5 Hyperlipidemia, unspecified; Z99.81 Dependence on supplemental oxygen; Z86.74 Personal history of sudden cardiac arrest; N18.9 Chronic kidney disease, unspecified; T38.0X5A Adverse effect of glucocorticoids and synthetic analogues, initial encounter; I70.0 Atherosclerosis of aorta; Z96.1 Presence of intraocular lens
CPT/HCPCS: 36415; 71045; 80048; 80053; 82009; 82803; 83605; 83615; 83735; 83880; 84100; 84484; 85025; 85379; 85610; 85730; 86140; 87635; 93005; 93306; 94640; 94760; 99291

== ENCOUNTER 2020-08-17 03:10 | Inpatient (IN) | payer MEDICARE, OTHER ==
[2020-08-17] MEDS ORDERED: IPRATROPIUM-ALBUTEROL 3 ML NEB INHALATION STA (03:14)
[2020-08-17] MEDS ORDERED: IBUPROFEN 600 MG TAB PO STA (03:24)
[2020-08-17] MEDS ORDERED: ACETAMINOPHEN TAB 500 MG TAB PO STA (03:24)
[2020-08-17 03:34] LABS: Basophils % (A) 0 %; Eosinophils # (A) 0.2 k/uL (0-0.7); Eosinophils % (A) 2 %; HCT 34.1 % (34.0-46.0); HGB 10.8 gm/dL (11.4-16.0); Lymphocytes # (A) 1.7 k/uL (1.0-4.8); Lymphocytes % (A) 12 %; MCH 27.5 pg (25.0-35.0); MCHC 31.8 g/dL (31.0-37.0); MCV 86.4 fL (80.0-100.0); Mean Platelet Volume 9.9; Monocytes # (A) 1.3 k/uL (0-1.0); Monocytes % (A) 9 %; Neutrophils # (A) 10.2 k/uL (1.3-7.7); Neutrophils % (A) 75 %; Platelet Count 165 k/uL (150-450); RBC 3.94 m/uL (3.80-5.40); RDW 14.1 % (11.5-15.5); WBC 13.6 k/uL (3.8-10.6)
--- NOTE | 2020-08-17 03:35 | ED ---
SOB HPI - General Chief Complaint: Shortness of Breath Stated Complaint: CHF Time Seen by Provider: 08/17/20 03:14 Source: EMS Mode of arrival: EMS Limitations: no limitations - History of Present Illness Initial Comments: This is a 75-year-old female to the ER for evaluation patient Dese for severe shortness of breath history of CHF A. fib CAD SD history of diabetes. Patient denying current chest pains or shortness of breath. No fevers, patient does have cough congestion currently. MD Complaint: shortness of breath, cough -: days(s) Severity: moderate Severity scale (1-10): 7 Quality: throbbing Consistency: constant Worsens With: nothing Known History Of: congestive heart failure Context: recent URI, recent illness Associated Symptoms: diaphoresis Treatments Prior to Arrival: none - Related Data Home Medications Medication Instructions Recorded Confirmed Ferrous Sulfate [Iron (65 MG 325 mg PO DAILY 02/12/19 08/21/20 Elemental)] Ascorbic Acid [Vitamin C] 500 mg PO DAILY 03/25/20 08/21/20 Fany Pitts B.lactis 1 tab PO DAILY 03/25/20 08/21/20 [Probiotic] Vitamin B Complex 1 cap PO DAILY 03/25/20 08/21/20 Cholecalciferol [Vitamin D3 (25 50 mcg PO DAILY 04/14/20 08/21/20 Mcg = 1000 Iu)] Amiodarone [Cordarone] 200 mg PO DAILY 04/22/20 08/21/20 Metoprolol Tartrate [Lopressor] 50 mg PO BID 05/04/20 08/21/20 Diane 500 mg PO DAILY 07/10/20 08/21/20 Inulin/Chromium Picolinate [Fiber 3 tab PO DAILY 07/10/20 08/21/20 Gummies Chew] Insulin Glargine,Hum.rec.anlog 22 unit SQ HS 07/19/20 08/21/20 [Lantus Solostar] Enalapril Maleate [Vasotec] 5 mg PO BID 08/17/20 08/21/20 Previous Rx's Medication Instructions Recorded Aspirin 81 mg PO DAILY #30 chew 07/01/19 Apixaban [Eliquis] 5 mg PO BID #60 tab 03/28/20 Potassium Chloride ER [K-Dur 20] 20 meq PO DAILY #90 tab 04/25/20 Albuterol Inhaler [Ventolin Hfa 2 puff INHALATION RT-QID PRN #1 07/20/20 Inhaler] inhaler Furosemide [Lasix] 60 mg PO BID@0900,1600 #60 tab 08/23/20 Spironolactone [Aldactone] 25 mg PO DAILY #30 tab 08/23/20 Allergies Allergy/AdvReac Type Severity Reaction Status Date / Time Corticosteroids Allergy Unknown Unknown Verified 08/21/20 07:45 (Glucocorticoids) egg Allergy Unknown Unknown Verified 08/23/20 12:03 azithromycin [From Zithromax] Allergy Anaphylaxis Verified 08/21/20 07:45 banana Allergy Unknown Verified 08/21/20 07:45 carisoprodol [From Soma] Allergy Unknown Verified 08/21/20 07:45 ciprofloxacin [From Cipro] Allergy Unknown Verified 08/21/20 07:45 cortisone [Cortisone] Allergy Unknown Verified 08/21/20 07:45 cyclobenzaprine HCl Allergy Unknown Verified 08/21/20 07:45 [From Flexeril] latex Allergy Unknown Verified 08/21/20 07:45 Latex, Natural Rubber Allergy Unknown Verified 08/21/20 07:45 levofloxacin [From Levaquin] Allergy Anaphylaxis Verified 08/21/20 07:45 Penicillins Allergy Anaphylaxis Verified 08/21/20 07:45 Review of Systems ROS Statement: Those systems with pertinent positive or pertinent negative responses have been documented in the HPI. ROS Other: All systems not noted in ROS Statement are negative. Past Medical History Past Medical History: Atrial Fibrillation, Coronary Artery Disease (CAD), Chest Pain / Angina, Heart Failure, Diabetes Mellitus, Eye Disorder, Hypertension, Myocardial Infarction (SD), Osteoarthritis (OA), Pneumonia, Renal Disease Additional Past Medical History / Comment(s): NIDDM type II, neuropathy bilateral feet, 01-03-14 [place]/cardiac arrest/resp failure/intubation, UTIs, past L eye retinal bleed with surgery. Last Myocardial Infarction Date:: 01-03-14 History of Any Multi-Drug Resistant Organisms: None Reported Past Surgical History: Heart Catheterization, Heart Catheterization With Stent Additional Past Surgical History / Comment(s): Stent RCA 01-07-14, stent LAD 02/14/2019, L retinal bleed with surgery, bilateral cataract removal/lens implants, colonoscopy Past Anesthesia/Blood Transfusion Reactions: No Reported Reaction Date of Last Stent Placement:: 2013 Past Psychological History: No Psychological Hx Reported Smoking Status: Former smoker Past Alcohol Use History: None Reported Past Drug Use History: None Reported - Past Family History Father Family Medical History: Cancer, Diabetes Mellitus Additional Family Medical History / Comment(s): age 70 from lung cancer Mother Family Medical History: COPD Additional Family Medical History / Comment(s): age 83 emphysema General Exam Limitations: no limitations General appearance: alert, in no apparent distress Head exam: Present: atraumatic, normocephalic, normal inspection Eye exam: Present: normal appearance, PERRL, EOMI. Absent: scleral icterus, conjunctival injection, periorbital swelling ENT exam: Present: normal exam, mucous membranes moist Neck exam: Present: normal inspection. Absent: tenderness, meningismus, lymphadenopathy Respiratory exam: Present: normal lung sounds bilaterally. Absent: respiratory distress, wheezes, rales, rhonchi, stridor Cardiovascular Exam: Present: regular rate, normal rhythm, normal heart sounds. Absent: systolic murmur, diastolic murmur, rubs, gallop, clicks GI/Abdominal exam: Present: soft, normal bowel sounds. Absent: distended, tenderness, guarding, rebound, rigid Extremities exam: Present: normal inspection, full ROM, normal capillary refill. Absent: tenderness, pedal edema, joint swelling, calf tenderness Back exam: Present: normal inspection Neurological exam: Present: alert, oriented X3, CN II-XII intact Psychiatric exam: Present: normal affect, normal mood Skin exam: Present: warm, dry, intact, normal color. Absent: rash Course Vital Signs 08/17/20 08/17/20 08/17/20 03:12 03:55 04:09 Temperature 100.8 F H Pulse Rate 65 62 58 L Respiratory 22 Rate Blood Pressure 164/69 O2 Sat by Pulse 94 L Oximetry 08/17/20 08/17/20 08/17/20 04:29 05:55 07:31 Temperature 98.3 F Pulse Rate 60 64 56 L Respiratory 18 18 Rate Blood Pressure 125/43 116/39 O2 Sat by Pulse 97 97 97 Oximetry 08/17/20 08/17/20 08/17/20 08:04 10:31 11:00 Temperature Pulse Rate 58 L 50 L 48 L Respiratory 18 16 16 Rate Blood Pressure 117/48 113/42 108/59 O2 Sat by Pulse 99 95 95 Oximetry 08/17/20 08/17/20 08/17/20 11:21 11:30 14:00 Temperature 97.9 F Pulse Rate 47 L 52 L 49 L Respiratory 16 Rate Blood Pressure 144/50 O2 Sat by Pulse 97 Oximetry - Reevaluation(s) Reevaluation #1: Medical record is reviewed Patient symptoms adequately improving control Patient informed results and questions have been answered Medical Decision Making - Medical Decision Making 75 female with pneumonia fever shortness of breath and CHF. A she'll admitted for antibiotics. Treatments as needed and cardiopulmonary support, diuresis - Lab Data Result diagrams: 08/19/20 07:41 08/19/20 07:41 Lab Results 08/17/20 08/17/20 08/17/20 Range/Units 03:21 03:21 03:21 WBC 13.6 H (3.8-10.6) k/uL RBC 3.94 (3.80-5.40) m/uL Hgb 10.8 L (11.4-16.0) gm/dL Hct 34.1 (34.0-46.0) % MCV 86.4 (80.0-100.0) fL MCH 27.5 (25.0-35.0) pg MCHC 31.8 (31.0-37.0) g/dL RDW 14.1 (11.5-15.5) % Plt Count 165 (150-450) k/uL MPV 9.9 Neutrophils % 75 % Lymphocytes % 12 % Monocytes % 9 % Eosinophils % 2 % Basophils % 0 % Neutrophils # 10.2 H (1.3-7.7) k/uL Lymphocytes # 1.7 (1.0-4.8) k/uL Monocytes # 1.3 H (0-1.0) k/uL Eosinophils # 0.2 (0-0.7) k/uL Basophils # 0.0 (0-0.2) k/uL PT 11.5 (9.0-12.0) sec INR 1.1 (<1.2) APTT 24.8 (22.0-30.0) sec Sodium 134 L (137-145) mmol/L Potassium 3.9 (3.5-5.1) mmol/L Chloride 100 (98-107) mmol/L Carbon Dioxide 26 (22-30) mmol/L Anion Gap 8 mmol/L BUN 55 H (7-17) mg/dL Creatinine 1.86 H (0.52-1.04) mg/dL Est GFR (CKD-EPI)AfAm 30 (>60 ml/min/1.73 sqM) Est GFR (CKD-EPI)NonAf 26 (>60 ml/min/1.73 sqM) Glucose 163 H (74-99) mg/dL Plasma Lactic Acid Jona (0.7-2.0) mmol/L Calcium 8.9 (8.4-10.2) mg/dL Magnesium 2.4 H (1.6-2.3) mg/dL Total Bilirubin 1.2 (0.2-1.3) mg/dL AST 29 (14-36) U/L ALT 19 (4-34) U/L Alkaline Phosphatase 135 H (38-126) U/L Troponin I (0.000-0.034) ng/mL NT-Pro-B Natriuret Pep pg/mL Total Protein 6.4 (6.3-8.2) g/dL Albumin 3.9 (3.5-5.0) g/dL TSH (0.465-4.680) mIU/L Free T4 (0.78-2.19) ng/dL Coronavirus (PCR) (Not Detectd) 08/17/20 08/17/20 08/17/20 Range/Units 03:21 03:21 03:21 WBC (3.8-10.6) k/uL RBC (3.80-5.40) m/uL Hgb (11.4-16.0) gm/dL Hct (34.0-46.0) % MCV (80.0-100.0) fL MCH (25.0-35.0) pg MCHC (31.0-37.0) g/dL RDW (11.5-15.5) % Plt Count (150-450) k/uL MPV Neutrophils % % Lymphocytes % % Monocytes % % Eosinophils % % Basophils % % Neutrophils # (1.3-7.7) k/uL Lymphocytes # (1.0-4.8) k/uL Monocytes # (0-1.0) k/uL Eosinophils # (0-0.7) k/uL Basophils # (0-0.2) k/uL PT (9.0-12.0) sec INR (<1.2) APTT (22.0-30.0) sec Sodium (137-145) mmol/L Potassium (3.5-5.1) mmol/L Chloride (98-107) mmol/L Carbon Dioxide (22-30) mmol/L Anion Gap mmol/L BUN (7-17) mg/dL Creatinine (0.52-1.04) mg/dL Est GFR (CKD-EPI)AfAm (>60 ml/min/1.73 sqM) Est GFR (CKD-EPI)NonAf (>60 ml/min/1.73 sqM) Glucose (74-99) mg/dL Plasma Lactic Acid Jona 1.0 (0.7-2.0) mmol/L Calcium (8.4-10.2) mg/dL Magnesium (1.6-2.3) mg/dL Total Bilirubin (0.2-1.3) mg/dL AST (14-36) U/L ALT (4-34) U/L Alkaline Phosphatase (38-126) U/L Troponin I <0.012 (0.000-0.034) ng/mL NT-Pro-B Natriuret Pep 4510 pg/mL Total Protein (6.3-8.2) g/dL Albumin (3.5-5.0) g/dL TSH (0.465-4.680) mIU/L Free T4 (0.78-2.19) ng/dL Coronavirus (PCR) (Not Detectd) 08/17/20 08/17/20 Range/Units 03:21 04:29 WBC (3.8-10.6) k/uL RBC (3.80-5.40) m/uL Hgb (11.4-16.0) gm/dL Hct (34.0-46.0) % MCV (80.0-100.0) fL MCH (25.0-35.0) pg MCHC (31.0-37.0) g/dL RDW (11.5-15.5) % Plt Count (150-450) k/uL MPV Neutrophils % % Lymphocytes % % Monocytes % % Eosinophils % % Basophils % % Neutrophils # (1.3-7.7) k/uL Lymphocytes # (1.0-4.8) k/uL Monocytes # (0-1.0) k/uL Eosinophils # (0-0.7) k/uL Basophils # (0-0.2) k/uL PT (9.0-12.0) sec INR (<1.2) APTT (22.0-30.0) sec Sodium (137-145) mmol/L Potassium (3.5-5.1) mmol/L Chloride (98-107) mmol/L Carbon Dioxide (22-30) mmol/L Anion Gap mmol/L BUN (7-17) mg/dL Creatinine (0.52-1.04) mg/dL Est GFR (CKD-EPI)AfAm (>60 ml/min/1.73 sqM) Est GFR (CKD-EPI)NonAf (>60 ml/min/1.73 sqM) Glucose (74-99) mg/dL Plasma Lactic Acid Jona (0.7-2.0) mmol/L Calcium (8.4-10.2) mg/dL Magnesium (1.6-2.3) mg/dL Total Bilirubin (0.2-1.3) mg/dL AST (14-36) U/L ALT (4-34) U/L Alkaline Phosphatase (38-126) U/L Troponin I (0.000-0.034) ng/mL NT-Pro-B Natriuret Pep pg/mL Total Protein (6.3-8.2) g/dL Albumin (3.5-5.0) g/dL TSH 6.170 H (0.465-4.680) mIU/L Free T4 1.74 (0.78-2.19) ng/dL Coronavirus (PCR) Not Detected (Not Detectd) - EKG Data -: EKG Interpreted by Me (EKG shows sinus rhythm rate of 68 HI 132 QRS 150 QTC 487) - Radiology Data Radiology results: report reviewed (Chest x-ray CHF and pneumonia), image reviewed Disposition Clinical Impression: Dyspnea, CHF exacerbation, Community acquired pneumonia, Fever Disposition: ADMITTED IP TO THIS [facility] Condition: Fair Is patient prescribed a controlled substance at d/c from ED?: No
[2020-08-17 03:48] LABS: Calcium 8.9 mg/dL (8.4-10.2); Magnesium 2.4 mg/dL (1.6-2.3); Potassium 3.9 mmol/L (3.5-5.1); Total Bilirubin 1.2 mg/dL (0.2-1.3); Total Protein 6.4 g/dL (6.3-8.2)
[2020-08-17 04:03] LABS: INR 1.1 (<1.2); Partial Thromboplastin Time 24.8 sec (22.0-30.0); Prothrombin Time 11.5 sec (9.0-12.0)
[2020-08-17 04:16] LABS: Albumin 3.9 g/dL (3.5-5.0)
--- NOTE | 2020-08-17 04:24 | XR ---
EXAM: XR Chest, 1 View CLINICAL HISTORY: ITS.REASON XR Reason: difficulty breathing TECHNIQUE: Frontal view of the chest. COMPARISON: July 20, 2020 FINDINGS: Lungs: Pulmonary vasculature is engorged and indistinct due to bilateral perihilar and bibasilar edema versus infiltrates, new since previous. Consider CHF versus pneumonia. Pleural space: Unremarkable. No pneumothorax. Heart: The cardiac silhouette is mildly enlarged. Mediastinum: Unremarkable. Bones/joints: Moderate osteophytosis in the mid to lower thoracic spine. IMPRESSION: Pulmonary vasculature is engorged and indistinct due to bilateral perihilar and bibasilar edema versus infiltrates, new since previous. Consider CHF versus pneumonia.
[2020-08-17] MEDS ORDERED: IPRATROPIUM-ALBUTEROL 3 ML NEB INHALATION PRN (04:36)
[2020-08-17] MEDS ORDERED: PNEUMONIA PROTOCOL UTILIZED 1 EACH MISC PO PRN (04:36)
[2020-08-17] MEDS: FUROSEMIDE 10 MG/ML 4 ML VIAL IV SCH ×2 (05:49→17:10)
[2020-08-17 06:25] LABS: Glucose,Whole Blood 202 mg/dL (75-99)
[2020-08-17] MEDS: ALBUTEROL NEBULIZED 2.5 MG/3 ML INHALATION SCH ×4 (07:31→20:01)
[2020-08-17 07:56] LABS: Glucose,Whole Blood 202 mg/dL (75-99)
[2020-08-17] MEDS: INSULIN ASPART (NovoLOG) 100 UNIT/ML VIAL SQ SCH ×3 (08:01→17:10)
--- NOTE | 2020-08-17 12:37 | P.NPCON ---
History of Present Illness - Reason for Consult Consult date: 08/17/20 acute renal failure - Chief Complaint Acute kidney injury, congestive heart failure - History of Present Illness This 75-year-old female seen in consultation because of acute kidney injury She came in because of chest pain over the left precordium. Started this morning She was recently admitted on 07/19/2020 with shortness of breath and lightheadedness and congestive heart failure, discharged the next day on 07/20/2020, medications on discharge included Lasix 40 twice a day and enalapril 5 daily. Workup at that time showed an echocardiogram on 07/19/2020 showing severe pulmonary hypertension with right ventricle pressure being 65. She denies taking any nonsteroidals or changing her medications or reducing her diuretic dose. Past history significant for cardiac catheterization 02/14/2019 with stenting, diabetes hypertension history of tobacco use in the past Past Medical History Past Medical History: Atrial Fibrillation, Coronary Artery Disease (CAD), Chest Pain / Angina, Heart Failure, Diabetes Mellitus, Eye Disorder, Hypertension, M yocardial Infarction ([place]), Osteoarthritis (OA), Pneumonia, Renal Disease Additional Past Medical History / Comment(s): NIDDM type II, neuropathy bilateral feet, 01-03-14 [place]/cardiac arrest/resp failure/intubation, UTIs, past L eye retinal bleed with surgery. Last Myocardial Infarction Date:: 01-03-14 History of Any Multi-Drug Resistant Organisms: None Reported Past Surgical History: Heart Catheterization, Heart Catheterization With Stent Additional Past Surgical History / Comment(s): Stent RCA 01-07-14, stent LAD 02/14/2019, L retinal bleed with surgery, bilateral cataract removal/lens implants, colonoscopy Past Anesthesia/Blood Transfusion Reactions: No Reported Reaction Date of Last Stent Placement:: 2013 Past Psychological History: No Psychological Hx Reported Smoking Status: Former smoker Past Alcohol Use History: None Reported Past Drug Use History: None Reported - Past Family History Father Family Medical History: Cancer, Diabetes Mellitus Additional Family Medical History / Comment(s): age 70 from lung cancer Mother Family Medical History: COPD Additional Family Medical History / Comment(s): age 83 emphysema Medications and Allergies Home Medications Medication Instructions Recorded Confirmed Type Ferrous Sulfate [Iron (65 MG 325 mg PO DAILY 02/12/19 08/17/20 History Elemental)] Aspirin 81 mg PO DAILY #30 chew 07/01/19 08/17/20 Rx Ascorbic Acid [Vitamin C] 500 mg PO DAILY 03/25/20 08/17/20 History L.acidoph,Paracasei, B.lactis 1 tab PO DAILY 03/25/20 08/17/20 History [Probiotic] Vitamin B Complex 1 cap PO DAILY 03/25/20 08/17/20 History Apixaban [Eliquis] 5 mg PO BID #60 tab 03/28/20 08/17/20 Rx Cholecalciferol [Vitamin D3 (25 50 mcg PO DAILY 04/14/20 08/17/20 History Mcg = 1000 Iu)] Amiodarone [Cordarone] 200 mg PO DAILY 04/22/20 08/17/20 History Potassium Chloride ER [K-Dur 20] 20 meq PO DAILY #90 tab 04/25/20 08/17/20 Rx Metoprolol Tartrate [Lopressor] 50 mg PO BID 05/04/20 08/17/20 History Furosemide [Lasix] 40 mg PO BID 07/10/20 08/17/20 History Diane 500 mg PO DAILY 07/10/20 08/17/20 History Inulin/Chromium Picolinate [Fiber 3 tab PO DAILY 07/10/20 08/17/20 History Gummies Chew] Insulin Glargine,Hum.rec.anlog 22 unit SQ HS 07/19/20 08/17/20 History [Lantus Solostar] Albuterol Inhaler [Ventolin Hfa 2 puff INHALATION RT-QID PRN #1 07/20/20 08/17/20 Rx Inhaler] inhaler Enalapril Maleate [Vasotec] 5 mg PO BID 08/17/20 08/17/20 History Allergies Allergy/AdvReac Type Severity Reaction Status Date / Time Corticosteroids Allergy Unknown Unknown Verified 08/17/20 08:19 (Glucocorticoids) egg Allergy Unknown Unknown Verified 08/17/20 08:19 azithromycin [From Zithromax] Allergy Anaphylaxis Verified 08/17/20 08:19 banana Allergy Unknown Verified 08/17/20 08:19 carisoprodol [From Soma] Allergy Unknown Verified 08/17/20 08:19 ciprofloxacin [From Cipro] Allergy Unknown Verified 08/17/20 08:19 cortisone [Cortisone] Allergy Unknown Verified 08/17/20 08:19 cyclobenzaprine HCl Allergy Unknown Verified 08/17/20 08:19 [From Flexeril] latex Allergy Unknown Verified 08/17/20 08:19 Latex, Natural Rubber Allergy Unknown Verified 08/17/20 08:19 levofloxacin [From Levaquin] Allergy Anaphylaxis Verified 08/17/20 08:19 Penicillins Allergy Anaphylaxis Verified 08/17/20 08:19 Physical Exam Vitals: Vital Signs Temp Pulse Resp BP Pulse Ox 08/17/20 11:30 52 L 08/17/20 11:21 47 L 08/17/20 11:00 48 L 16 108/59 95 08/17/20 10:31 50 L 16 113/42 95 08/17/20 08:04 58 L 18 117/48 99 08/17/20 07:31 56 L 97 08/17/20 05:55 98.3 F 64 18 116/39 97 08/17/20 04:29 60 18 125/43 97 08/17/20 04:09 58 L 08/17/20 03:55 62 08/17/20 03:12 100.8 F H 65 22 164/69 94 L Intake and Output 08/16/20 08/17/20 08/17/20 22:59 06:59 14:59 Other: Weight 77.111 kg On examination she is awake alert oriented comfortable. Somewhat anxious HEENT exam no JVP neck is supple no facial asymmetry Lungs are clear to auscultation with good air entry bilaterally although the chest x-ray shows congestive heart failure. Our sounds are unremarkable for any murmur rub gallop she is in normal sinus rh ythm Abdomen soft nontender nondistended. Extremity exam reveals no edema Neurologically awake alert oriented comfortable Results - Lab Results Most recent lab results Calcium 8.9 mg/dL (8.4-10.2) 08/17/20 03:21 Magnesium 2.4 mg/dL (1.6-2.3) H 08/17/20 03:21 08/17/20 03:21 08/17/20 03:21 Assessment and Plan Assessment: Impression 1. Acute kidney injury from prerenal, congestive heart failure cardiorenal syndrome. 2. Chronic kidney disease, stage III creatinine 1.02, secondary to nephrosclerosis. Possibility of renovascular disease considered 3. Anemia , hemoglobin is 10.8 secondary to chronic disease 4. Severe pulmonary hypertension right ventricular pressure 65 by echocardiogram dated 07/19/2020. 5. History of coronary artery disease with cardiac cath and stent on 02/14/2019. 6. History of tobacco abuse in the past Recommendation 1. Agree with IV Lasix 40 every 12 2. Strict I's and O's 3. Monitor labs including hemoglobin and renal profile 4. Check iron saturation Thank you for this consultation will continue to follow follow closely
[2020-08-17] MEDS: IPRATROPIUM-ALBUTEROL 3 ML NEB INHALATION SCH ×2 (16:32→21:34)
[2020-08-17 16:34] LABS: Glucose,Whole Blood 229 mg/dL (75-99)
--- NOTE | 2020-08-17 17:54 | HP ---
HISTORY AND PHYSICAL I am covering for Dr. Barrios. DATE OF SERVICE: 08/17/2020. CHIEF COMPLAINTS: Shortness of breath. HISTORY OF PRESENT ILLNESS: This 75-year-old woman with a past medical history of atrial fibrillation, history of CAD, history of CHF, diabetes, history of hypertension, myocardial infarction, history of pneumonia being followed by Dr. Barrios in the outpatient setting, complaining of shortness of breath. The patient was also seen by Dr. Concepcion previously. The patient was recently admitted to [facility] with features of congestive heart failure with acute on chronic systolic heart failure. Patient also had COPD and patient discharged on Lasix. The chest x-ray showed evidence of CHF. Patient admitted for evaluation. Patient also has some renal failure. The creatinine is 1.8 from the baseline, also fluctuating. There is no history of any headache, loss of consciousness, seizures. NT proBNP is 4510 and COVID-19 was also negative. PAST MEDICAL HISTORY: History of CAD, history of CHF, diabetes type 2, hypertension, myocardial infarction, DJD, history of pneumonia. MEDICATIONS: Vitamin B complex, K-Dur, Lopressor, probiotic, Lantus, Diane, Lasix, iron, Vasotec, vitamin D3, and root of also noted. ALLERGIES: MULTIPLE ALLERGIES: CORTICOSTEROIDS, EGG, BANANAS,, CIPRO, CORTISONE, FLEXERIL, LATEX.NATURE RUB, LEVAQUIN AND PENICILLIN. FAMILY HISTORY: History of diabetes, cancer in the family. SOCIAL HISTORY: Previous history of smoking. No history of current smoking or alcohol intake. REVIEW OF SYSTEMS: ENT: Diminished vision. Diminished hearing. Cardiovascular as mentioned earlier. RESPIRATORY: As mentioned earlier. GI no nausea or vomiting. : No dysuria. Nervous system: No numbness, weakness. ALLERGY/IMMUNOLOGY: No asthma or hayfever. MUSCULOSKELETAL: As mentioned earlier. HEMATOLOGY/ONCOLOGY: No history of anemia. ENDOCRINE: Diabetes mellitus. DERMATOLOGY: Negative. CONSTITUTIONAL: As mentioned earlier. RHEUMATOLOGY: Negative. PSYCHIATRIC: As mentioned earlier. PHYSICAL EXAMINATION: Alert and oriented times three. Pulse 49. Blood pressure is 144/50, respirations 16, temperature 97.9, pulse ox 97% on room air. HEENT: Conjunctivae normal. Oral mucosa moist. NECK is no jugular venous distention. No carotid bruit. No lymph node enlargement. CARDIOVASCULAR system: S1, S2 muffled. No S3, no S4. RESPIRATORY: Breath sounds diminished in the bases. Breathing efforts are markedly increased. Bilateral scattered rhonchi and basilar crackles. ABDOMEN: Soft, nontender. LEGS: Bilateral leg edema present. NERVOUS SYSTEM: Higher functions as mentioned earlier. Moves all 4 limbs. No focal motor or sensory deficits. LYMPHATICS: No lymph nodes palpable in the neck, axillae or groin. JOINTS: No active deforming arthropathy. LABS: WBC 13.2, hemoglobin 10.8, sodium 134, creatinine is 1.86. ASSESSMENT: 1. Congestive heart failure, acute exacerbation with acute on chronic systolic dysfunction. 2. Chronic obstructive pulmonary disease, acute exacerbation. 3. Acute renal failure with acute tubular necrosis. 4. History of atrial fibrillation. 5. History of coronary artery disease/stent. 6. History of diabetes type 2. 7. History of hypertension. 8. History of myocardial infarction. 9. History of degenerative joint disease. 10.History of bilateral peripheral neuropathy. 11.History of cardiac arrest. 12.History of urinary tract infection. 13.Increased WBC. 14.Hyponatremia. 15.Chronic kidney stage 2, possibly. RECOMMENDATIONS AND DISCUSSION: This 75-year-old woman who presented with multiple complex medical issues, we will monitor the patient closely. Continue the current medications, management and symptomatic treatment. We will initiate IV diuretics. Monitor fluid/electrolyte balance closely. I would recommend Cardiology and pulmonology consultations. Guarded prognosis because of multiple complex medical issues. Further recommendations to follow. A copy of dictation being forwarded to Dr. Barrios who is the primary physician. Dr. Barrios will follow the patient tomorrow. MMODL / ARLENEN: [id number] / MTDD
[2020-08-17 20:19] LABS: Glucose,Whole Blood 287 mg/dL (75-99)
[2020-08-17 20:20] LABS: T4, Free (Free Thyroxine) 1.74 ng/dL (0.78-2.19)
--- NOTE | 2020-08-17 20:45 | CONS ---
CONSULTATION HISTORY OF PRESENT ILLNESS: Mrs. Nixon is a 75-year-old female who presented to the emergency room with symptoms of progressive dyspnea. The patient has been complaining of significant dyspnea over the last few days. She was discharged from the hospital recently. During her last admission, she had an echocardiogram revealed a preserved left ventricular systolic function with evidence of pulmonary hypertension. She was given diuretics and her renal function worsened. Her cardiac history is remarkable for prior history of coronary artery disease, status post percutaneous revascularization most recently done in [address] Benavidez. She follows by Dr. Chavez on a regular basis. She underwent stenting of her mid LAD in February 2019 and a prior stent of the RCA. At the time of her cardiac catheterization in February of 2019, she was found to have significant disease in the mid LAD with a calcified right coronary artery without any significant restenoses. She had an echocardiogram performed about a month ago and at that time her systolic function was normal. She had mild to moderate mitral and tricuspid regurgitation with right-sided pressure of 66 mmHg. The patient has noted peripheral edema. She has the dyspnea on exertion. She denies any chest discomfort. She denies any dizziness or palpitation. No syncope. No clear PND. No orthopnea. Her level of activity is somewhat limited. She has a prior history of paroxysmal atrial fibrillation and echocardiogram showed a more significant mitral regurgitation. Her coronary risk factors are remarkable for the history of hypertension, diabetes, hyperlipidemia. MEDICATIONS: Include: Amiodarone 200 mg daily, Eliquis 5 mg twice a day, aspirin 81 mg daily, enalapril 5 mg twice a day, furosemide 40 mg twice a day, insulin, metoprolol tartrate 50 mg twice a day. REVIEW OF SYSTEMS: RESPIRATORY system: She had dyspnea on exertion. No recent wheezing or cough. GI system: No recent GI bleeding. No peptic ulcer disease. system: No dysuria or hematuria. Nervous system: No stroke or seizure. PHYSICAL EXAMINATION: She is a 75-year-old female, alert, oriented, in no apparent distress. Blood pressure 108/59 with a heart rate in the 50s. Temperature 100.8. HEAD: Normocephalic. Eyes sclerae anicteric. NECK: Good upstroke. No bruit. No jugular venous distention. LUNGS: Clear to auscultation. HEART: Regular rate and rhythm S1, S2. No S3 with systolic murmur, ejection type heard at the base. No diastolic murmur. No rub. ABDOMEN: Soft, nontender. Positive bowel sounds. Obese. EXTREMITIES: Mild edema. LAB DATA: White blood cells 13.6, hemoglobin of 10.8. BUN and creatinine 55 and 1.86, which is higher than it was earlier in July. It was 1.5, potassium 3.9. Her troponin less than 0.012 and 0.023. Her NT proBNP is 4510, which is less than it was in July. Patient had a level above 4000 for the last few admissions. IMPRESSION: 1. Symptoms of progressive dyspnea, could have some element of fluid overload, although her peripheral edema is not very significant and the elevation of the NT proBNP is not much different than it was in July and as a matter of fact it is slightly lower. The patient has an overall preserved systolic function and evidence of pulmonary hypertension. 2. History of coronary artery disease with no evidence of acute ischemic event. 3. Paroxysmal atrial fibrillation, maintaining sinus mechanism. 4. Worsening renal functions. 5. Bradycardia, most likely related to her medication. 6. Underlying left bundle branch block. RECOMMENDATIONS: From the cardiac standpoint, I will continue on her anticoagulation in view of the paroxysmal atrial fibrillation. The dose of her beta chely will be decreased. I will decrease the dose of her amiodarone as well. Follow her renal functions. Check her thyroid function test. The patient was started on IV diuretics. We will follow her renal function closely. I do not believe that she is significantly fluid overloaded. Of note, the patient has pulmonary hypertension and some of the element is related to heart failure with preserved systolic function. Depending on her progress, further recommendations will be made. Thank you for this consult. We will follow with you. MMODL / IJN: [id number] /
[2020-08-17] MEDS: METOPROLOL TARTRATE 25 MG TAB PO SCH (20:55)
[2020-08-17] MEDS: INSULIN DETEMIR (LEVEMIR) 100 UNIT/ML SYR SQ SCH (20:55)
[2020-08-17] MEDS: APIXABAN 5 MG TAB PO SCH (20:55)
[2020-08-18] MEDS: FUROSEMIDE 10 MG/ML 4 ML VIAL IV SCH ×2 (05:17→17:25)
[2020-08-18 07:25] LABS: Glucose,Whole Blood 73 mg/dL (75-99)
--- NOTE | 2020-08-18 07:25 | XR ---
EXAMINATION TYPE: XR chest 2V DATE OF EXAM: 08/18/2020 COMPARISON: 08/17/2020 HISTORY: 75-year-old female pneumonia TECHNIQUE: PA and lateral views FINDINGS: Heart is borderline enlarged. Hyperinflation. Interstitial opacities persist but show some improvemen t. Trace left pleural effusion. Sclerotic focus right humeral head likely bone island. IMPRESSION: COPD with CHF and superimposed pulmonary vascular congestion. There has been some improvement as comp ared to prior exam. Trace effusions.
[2020-08-18 07:45] LABS: Glucose,Whole Blood 81 mg/dL (75-99)
[2020-08-18] MEDS: METOPROLOL TARTRATE 25 MG TAB PO SCH ×2 (08:03→20:31)
[2020-08-18] MEDS: ASCORBIC ACID 500 MG TAB PO SCH (08:03)
[2020-08-18] MEDS: CHOLECALCIFEROL 25 MCG (1000 IU) TABLET PO SCH (08:03)
[2020-08-18] MEDS: APIXABAN 5 MG TAB PO SCH ×2 (08:03→20:31)
[2020-08-18] MEDS: POTASSIUM CHLORIDE ER 20 MEQ TAB.ER PO SCH (08:03)
[2020-08-18] MEDS: lisinopriL 20 MG TAB PO SCH (08:03)
[2020-08-18] MEDS: FERROUS SULFATE 325 MG TAB PO SCH (08:03)
[2020-08-18] MEDS: ASPIRIN 81 MG PO SCH (08:03)
[2020-08-18] MEDS: AMIODARONE 100 MG TAB PO SCH ×2 (08:03→12:35)
--- NOTE | 2020-08-18 08:03 | P.PN ---
Subjective Principal diagnosis: Congestive heart failure This is a continue progress on a 75-year-old white female essentially admitted for CHF and element of COPD. The patient seems to be breathing appropriately on room air but is concerned about preventing recurrences. No new voiding difficulties. Objective - Vital Signs Vital signs: Vital Signs Temp 98.4 F 08/18/20 00:12 Pulse 65 08/18/20 00:12 Resp 14 08/18/20 00:12 BP 146/63 08/18/20 00:12 Pulse Ox 97 08/18/20 00:12 Intake & Output 08/17/20 08/18/20 08/18/20 18:59 06:59 18:59 Intake Total 480 Output Total 1 Balance 480 -1 Weight 77.111 kg Intake: Oral 480 Output: Stool 1 Other: # Voids 2 - Constitutional General appearance: Present: average body habitus - EENT Eyes: Absent: abnormal pupil - Neck Neck: Absent: lymphadenopathy - Respiratory Respiratory: bilateral: diminished - Cardiovascular Rhythm: regular Heart sounds: normal: S1, S2 Abnormal Heart Sounds: Absent: S3 Gallop - Gastrointestinal General gastrointestinal: Present: scaphoid, soft. Absent: tenderness - Integumentary Integumentary: Absent: cellulitis - Neurologic Neurologic: Present: CNII-XII intact - Labs CBC & Chem 7: 08/17/20 03:21 08/17/20 03:21 Labs: Abnormal Lab Results - Last 24 Hours (Table) 08/17/20 08/17/20 08/17/20 Range/Units 03:21 16:33 20:17 POC Glucose (mg/dL) 229 H 287 H (75-99) mg/dL TSH 6.170 H (0.465-4.680) mIU/L 08/18/20 Range/Units 07:24 POC Glucose (mg/dL) 73 L (75-99) mg/dL TSH (0.465-4.680) mIU/L Microbiology - Last 24 Hours (Table) 08/17/20 05:30 Blood Culture - Preliminary Blood No Growth after 24 hours Assessment and Plan (1) Insulin dependent type 2 diabetes mellitus Current Visit: Yes Status: Acute Code(s): E11.9 - TYPE 2 DIABETES MELLITUS WITHOUT COMPLICATIONS; Z79.4 - CUSTODIAL (CURRENT) USE OF INSULIN SNOMED Code(s): 983040603 (2) CHF exacerbation Current Visit: Yes Status: Acute Code(s): I50.9 - HEART FAILURE, UNSPECIFIED SNOMED Code(s): 727414339 (3) Atrial fibrillation Current Visit: No Status: Acute Code(s): I48.91 - UNSPECIFIED ATRIAL FIBRILLATION SNOMED Code(s): 15094320 Plan: patient is stabilized. Reconcile medications as necessary. Sliding scale as needed. Check CBC and CMP in a.m.
[2020-08-18] MEDS: NON FORMULARY DRUG (Vitamin B Complex [Vitamin B Complex] 1 EACH Capsule) PO SCH (08:04)
[2020-08-18] MEDS: LACTOBACILLUS ACIDOPH & BULGAR 1 EACH PACKET PO SCH (08:04)
[2020-08-18] MEDS: INSULIN ASPART (NovoLOG) 100 UNIT/ML VIAL SQ SCH ×3 (08:12→17:25)
[2020-08-18] MEDS: IPRATROPIUM-ALBUTEROL 3 ML NEB INHALATION SCH ×2 (09:40→11:54)
[2020-08-18 09:49] LABS: Basophils % (A) 0 %; Eosinophils # (A) 0.3 k/uL (0-0.7); Eosinophils % (A) 4 %; HCT 32.9 % (34.0-46.0); HGB 10.3 gm/dL (11.4-16.0); Hypochromasia Slight; Lymphocytes % (A) 14 %; MCH 27.6 pg (25.0-35.0); MCHC 31.4 g/dL (31.0-37.0); MCV 87.9 fL (80.0-100.0); Mean Platelet Volume 9.6; Monocytes # (A) 0.8 k/uL (0-1.0); Monocytes % (A) 12 %; Neutrophils % (A) 68 %; Platelet Count 154 k/uL (150-450); RBC 3.74 m/uL (3.80-5.40); RDW 14.1 % (11.5-15.5); WBC 7.3 k/uL (3.8-10.6)
[2020-08-18 10:15] LABS: African American GFR (CKD) 36 (>60 ml/min/1.73 sqM); Anion Gap 10 mmol/L; Blood Urea Nitrogen 55 mg/dL (7-17); Calcium 9.1 mg/dL (8.4-10.2); Carbon Dioxide 28 mmol/L (22-30); Chloride 99 mmol/L (98-107); Glucose 103 mg/dL (74-99); Non-African American GFR(CKD) 32 (>60 ml/min/1.73 sqM); Potassium 3.7 mmol/L (3.5-5.1); Sodium 137 mmol/L (137-145)
[2020-08-18 11:34] LABS: Glucose,Whole Blood 257 mg/dL (75-99)
--- NOTE | 2020-08-18 13:03 | P.CNPUL ---
History of Present Illness Consult date: 08/18/20 Requesting physician: Last Barrios Reason for consult: dyspnea, hypoxemia, pleural effusion, abnormal CXR/CT Chief complaint: Shortness of breath, CHF. History of present illness: Pulmonary consultation dated 08/18/2020. 75-year-old female, who presents to the emergency department on 08/17/2020 at 3:00 in the morning complaining of shortness of breath and possible CHF. The patient has a history of atrial fibrillation, CAD, angina, heart failure, diabetes, hypertension, myocardial infarction, osteoarthritis, and chronic kidney disease. Currently, the patient's resting very comfortably in her room. He was seen in room 468. She is currently not on any supplemental oxygen. She's not receiving any IV fluids. She denies any shortness of breath, difficulty breathing, coughing, wheezing, or phlegm production. She does have some lower extremity edema. She also denies any fever or chills, or chest pain. She does have a prior history of cardiac catheterization with stent placement, and the right coronary artery in December 2013, in the left anterior descending coronary artery in February 2019. White count 7.3, hemoglobin 10.3, hematocrit 32.9, and platelet count was normal. PT, INR, and PTT were all normal. Sodium 137, potassium 3.7, chlorides 99, CO2 28, anion gap 10, BUN 55, and creatinine 1.57. The N-terminal proBNP was 4510. TSH was elevated at 6.170. Troponin was 0.023. Chest x-ray in my opinion was consistent with fluid overload/CHF. Follow-up chest x-ray did show some improvement. There is nothing to suggest pneumonia as the patient denied any fever, chills, cough, phlegm production, etc. Review of Systems REVIEW OF SYSTEMS: CONSTITUTIONAL: [Negative.] NEUROLOGIC: [ Negative.] HEENT: [ Negative.] CARDIAC: [Negative.] PULMONARY: Shortness of breath. GI: [Negative.] : [Negative.] RHEUMATOLOGIC: [ Negative.] IMMUNOLOGIC: [ Negative.] ENDOCRINE: [Negative. ] DERMATOLOGIC: [Negative.] Past Medical History Past Medical History: Atrial Fibrillation, Coronary Artery Disease (CAD), Chest Pain / Angina, Heart Failure, Diabetes Mellitus, Eye Disorder, Hypertension, Myocardial Infarction (MA), Osteoarthritis (OA), Pneumonia, Renal Disease Additional Past Medical History / Comment(s): NIDDM type II, neuropathy bilateral feet, 01-03-14 MA/cardiac arrest/resp failure/intubation, UTIs, past L eye retinal bleed with surgery. Last Myocardial Infarction Date:: 01-03-14 History of Any Multi-Drug Resistant Organisms: None Reported Past Surgical History: Heart Catheterization, Heart Catheterization With Stent Additional Past Surgical History / Comment(s): Stent RCA 01-07-14, stent LAD 02/14/2019, L retinal bleed with surgery, bilateral cataract removal/lens implants, colonoscopy Past Anesthesia/Blood Transfusion Reactions: No Reported Reaction Date of Last Stent Placement:: 2013 Past Psychological History: No Psychological Hx Reported Additional Psychological History / Comment(s): Pt resides alone. She uses a walker. She does not drive, she gets rides from [employer] bus. Smoking Status: Former smoker Past Alcohol Use History: None Reported Additional Past Alcohol Use History / Comment(s): started smoking at age 27, smoked 1/2 ppd quit 2002 Past Drug Use History: None Reported - Past Family History Father Family Medical History: Cancer, Diabetes Mellitus Additional Family Medical History / Comment(s): age 70 from lung cancer Mother Family Medical History: COPD Additional Family Medical History / Comment(s): age 83 emphysema Medications and Allergies Home Medications Medication Instructions Recorded Confirmed Type Ferrous Sulfate [Iron (65 MG 325 mg PO DAILY 02/12/19 08/17/20 History Elemental)] Aspirin 81 mg PO DAILY #30 chew 07/01/19 08/17/20 Rx Ascorbic Acid [Vitamin C] 500 mg PO DAILY 03/25/20 08/17/20 History L.acidoph,Paracasei, B.lactis 1 tab PO DAILY 03/25/20 08/17/20 History [Probiotic] Vitamin B Complex 1 cap PO DAILY 03/25/20 08/17/20 History Apixaban [Eliquis] 5 mg PO BID #60 tab 03/28/20 08/17/20 Rx Cholecalciferol [Vitamin D3 (25 50 mcg PO DAILY 04/14/20 08/17/20 History Mcg = 1000 Iu)] Amiodarone [Cordarone] 200 mg PO DAILY 04/22/20 08/17/20 History Potassium Chloride ER [K-Dur 20] 20 meq PO DAILY #90 tab 04/25/20 08/17/20 Rx Metoprolol Tartrate [Lopressor] 50 mg PO BID 05/04/20 08/17/20 History Furosemide [Lasix] 40 mg PO BID 07/10/20 08/17/20 History Diane 500 mg PO DAILY 07/10/20 08/17/20 History Inulin/Chromium Picolinate [Fiber 3 tab PO DAILY 07/10/20 08/17/20 History Gummies Chew] Insulin Glargine,Hum.rec.anlog 22 unit SQ HS 07/19/20 08/17/20 History [Lantus Solostar] Albuterol Inhaler [Ventolin Hfa 2 puff INHALATION RT-QID PRN #1 07/20/20 1 Rx Inhaler] inhaler Enalapril Maleate [Vasotec] 5 mg PO BID 08/17/20 08/17/20 History Allergies Allergy/AdvReac Type Severity Reaction Status Date / Time Corticosteroids Allergy Unknown Unknown Verified 08/17/20 08:19 (Glucocorticoids) egg Allergy Unknown Unknown Verified 08/17/20 08:19 azithromycin [From Zithromax] Allergy Anaphylaxis Verified 08/17/20 08:19 banana Allergy Unknown Verified 08/17/20 08:19 carisoprodol [From Soma] Allergy Unknown Verified 08/17/20 08:19 ciprofloxacin [From Cipro] Allergy Unknown Verified 08/17/20 08:19 cortisone [Cortisone] Allergy Unknown Verified 08/17/20 08:19 cyclobenzaprine HCl Allergy Unknown Verified 08/17/20 08:19 [From Flexeril] latex Allergy Unknown Verified 08/17/20 08:19 Latex, Natural Rubber Allergy Unknown Verified 08/17/20 08:19 levofloxacin [From Levaquin] Allergy Anaphylaxis Verified 08/17/20 08:19 Penicillins Allergy Anaphylaxis Verified 08/17/20 08:19 Physical Exam Osteopathic Statement: *. No significant issues noted on an osteopathic structural exam other than those noted in the History and Physical/Consult. Vitals: Vital Signs Temp Pulse Pulse Resp BP BP Pulse Ox 08/18/20 08:14 98.8 F 63 18 154/68 98 08/18/20 00:12 98.4 F 65 14 146/63 97 08/17/20 20:00 97.9 F 61 18 128/89 97 08/17/20 16:33 97 08/17/20 15:52 97.5 F L 52 L 17 152/67 99 08/17/20 14:00 97.9 F 49 L 16 144/50 97 Intake and Output 08/17/20 08/18/20 08/18/20 22:59 06:59 14:59 Intake Total 480 Output Total 1 Balance 480 -1 Intake: Oral 480 Output: Stool 1 Other: Voiding Method Toilet # Voids 2 Weight 77.111 kg No acute distress, oriented 3. Currently, patient on room air. Saturations are excellent. No signs or symptoms of any respiratory distress including conversational dyspnea, use of accessory muscles, or audible wheezing. HEENT examination is grossly unremarkable. Neck supple. Full range of motion. No adenopathy thyromegaly or neck vein distention. Cardiovascular examination reveals regular rhythm rate. S1-S2 normal. No S3 or S4. Soft systolic murmur noted.. Heart rate 63 bpm. Heart sounds are very distant. Lungs reveal scattered rhonchi and bibasilar crackles. No wheezes. Room air saturation 98%. Abdomen soft bowel sounds are heard. No masses or tenderness. Extremities are intact. 1+ lower extremity edema is noted. No cyanosis or clubbing. Skin is without rash or lesion. Neurologic examination is brief but nonfocal. Results - Laboratory Findings CBC and BMP: 08/18/20 08:26 08/18/20 08:26 PT/INR, D-dimer PT 11.5 sec (9.0-12.0) 08/17/20 03:21 INR 1.1 (<1.2) 08/17/20 03:21 Abnormal lab findings: Abnormal Labs 08/17/20 08/17/20 08/17/20 03:21 03:21 03:21 WBC 13.6 H RBC Hgb 10.8 L Hct Neutrophils # 10.2 H Monocytes # 1.3 H Sodium 134 L BUN 55 H Creatinine 1.86 H Glucose 163 H POC Glucose (mg/dL) Magnesium 2.4 H Alkaline Phosphatase 135 H TSH 6.170 H 08/17/20 08/17/20 08/17/20 06:24 07:55 16:33 WBC RBC Hgb Hct Neutrophils # Monocytes # Sodium BUN Creatinine Glucose POC Glucose (mg/dL) 202 H 202 H 229 H Magnesium Alkaline Phosphatase TSH 08/17/20 08/18/20 08/18/20 20:17 07:24 08:26 WBC RBC Hgb Hct Neutrophils # Monocytes # Sodium BUN 55 H Creatinine 1.57 H Glucose 103 H POC Glucose (mg/dL) 287 H 73 L Magnesium Alkaline Phosphatase TSH 08/18/20 08/18/20 08:26 11:32 WBC RBC 3.74 L Hgb 10.3 L Hct 32.9 L Neutrophils # Monocytes # Sodium BUN Creatinine Glucose POC Glucose (mg/dL) 257 H Magnesium Alkaline Phosphatase TSH - Diagnostic Findings Chest x-ray: image reviewed Assessment and Plan Assessment: Acute hypoxemic respiratory failure secondary to CHF. Doubt pneumonia. History of atrial fibrillation. History of CAD with previous myocardial infarction, and previous stent placements and the right coronary artery and left anterior descending coronary artery. History of angina pectoris. History of CHF. Diabetes mellitus. History of hypertension. History of osteoarthritis. History of diabetic neuropathy. Prior history of cardiac arrest. Plan: Plan dated 08/18/2020. Really nothing to suggest pneumonia in this patient. Antibiotics can be discontinued. The patient will need thyroid supplementation. We will continue to follow. Currently, the patient's on room air. Saturations are 98%. The patient is doing much better. We will continue to follow make recommendations were appropriate. Time with Patient: Greater than 30
[2020-08-18 14:26] VITALS: BMI 33.2
--- NOTE | 2020-08-18 15:16 | PN ---
PROGRESS NOTE The patient is seen for followup for acute kidney injury. Her renal function has been improving. Creatinine is down to 1.5. Patient is currently being diuresed. Overall, she states she is feeling better. PHYSICAL EXAMINATION: On examination today, blood pressure is 146/63, heart rate 65 per minute. She is afebrile. Examination of the heart S1, S2. Examination of the lungs, decreased breath sounds at bases. Abdomen is soft, nontender. Examination of lower extremities shows edema 1+ bilaterally. [employer] exam grossly intact. LAB: Show hemoglobin 10.3, sodium 137, potassium 3.7, BUN 55, creatinine 1.57. ASSESSMENT: 1. Acute kidney injury, cardiorenal currently improving with IV Lasix which we will continue. 2. Volume overload slowly improving. 3. Chronic kidney disease stage 3, baseline creatinine 1.0 secondary to nephrosclerosis. 4. Severe pulmonary hypertension. 5. Coronary artery disease with history of cardiac catheterization and stent placement 02/14/2019. PLAN: Continue with IV Lasix for now. Repeat labs in a.m. MMODL / IJN: [id number] /
[2020-08-18 16:54] LABS: Glucose,Whole Blood 183 mg/dL (75-99)
[2020-08-18] MEDS: INSULIN DETEMIR (LEVEMIR) 100 UNIT/ML SYR SQ SCH (20:28)
[2020-08-18 20:29] LABS: Glucose,Whole Blood 107 mg/dL (75-99)
[2020-08-18 21:16] LABS: % Iron Saturation 3.17 (12.00-45.00)
[2020-08-18 21:51] LABS: Glucose,Whole Blood 137 mg/dL (75-99)
[2020-08-19 01:26] LABS: Appearance,Urine Clear (Clear); Bilirubin,Urine Negative (Negative); Blood,Urine Negative (Negative); Color,Urine Light Yellow; Glucose,Urine (UA) Negative (Negative); Ketones,Urine Negative (Negative); Leukocyte Esterase,Urine Negative (Negative); Nitrite,Urine Negative (Negative); PH, Urine 5.5 (5.0-8.0); Protein,Urine Negative (Negative); Specific Gravity,Urine 1.012 (1.001-1.035); Urobilinogen,Urine <2.0 mg/dL (<2.0)
[2020-08-19] MEDS: FUROSEMIDE 10 MG/ML 4 ML VIAL IV SCH (05:28)
[2020-08-19 06:51] LABS: Glucose,Whole Blood 135 mg/dL (75-99)
[2020-08-19] MEDS: METOPROLOL TARTRATE 25 MG TAB PO SCH (08:05)
[2020-08-19] MEDS: CHOLECALCIFEROL 25 MCG (1000 IU) TABLET PO SCH (08:05)
[2020-08-19] MEDS: lisinopriL 20 MG TAB PO SCH (08:05)
[2020-08-19] MEDS: ASCORBIC ACID 500 MG TAB PO SCH (08:05)
[2020-08-19] MEDS: LACTOBACILLUS ACIDOPH & BULGAR 1 EACH PACKET PO SCH (08:06)
[2020-08-19] MEDS: NON FORMULARY DRUG (Vitamin B Complex [Vitamin B Complex] 1 EACH Capsule) PO SCH (08:06)
[2020-08-19] MEDS: INSULIN ASPART (NovoLOG) 100 UNIT/ML VIAL SQ SCH ×2 (08:06→12:46)
[2020-08-19] MEDS: FERROUS SULFATE 325 MG TAB PO SCH (08:06)
[2020-08-19] MEDS: ASPIRIN 81 MG PO SCH (08:06)
[2020-08-19] MEDS: APIXABAN 5 MG TAB PO SCH (08:06)
[2020-08-19] MEDS: POTASSIUM CHLORIDE ER 20 MEQ TAB.ER PO SCH (08:06)
[2020-08-19 08:15] VITALS: BP 145/64; PULSE 59; RESP 18; TEMP 98.2
--- NOTE | 2020-08-19 08:27 | P.DS ---
Providers Date of admission: 08/17/20 04:36 Attending physician: Last Barrios Consults: 08/17/20 11:32 Consult Physician Routine Consulting Provider: Karl Grey Consult Reason/Comments: chf Do you want consulting provider notified?: Yes Consult Physician Routine Consulting Provider: Carol Vides Consult Reason/Comments: arf Do you want consulting provider notified?: Yes 08/17/20 15:13 Consult Physician Routine Consulting Provider: Med Concepcion Consult Reason/Comments: copd Do you want consulting provider notified?: Yes 08/17/20 15:14 Consult Physician Routine Consulting Provider: Karl Grey Consult Reason/Comments: chf Do you want consulting provider notified?: Yes Primary care physician: Last Barrios - Discharge Diagnosis(es) (1) Insulin dependent type 2 diabetes mellitus Current Visit: Yes Status: Acute (2) CHF exacerbation Current Visit: Yes Status: Acute (3) Atrial fibrillation Current Visit: No Status: Acute Hospital Course: This discharge summary 75-year-old white female essentially admitted for shortness of breath. Found to have element of fluid overload. The patient has underlying history of fibrillation diabetes which has been fairly stable. The patient was diuresed with IV Lasix and did quite well. She'll be transitioned back to her home Lasix dose. The patient otherwise had a long discussion regarding dietary elements. The patient is voiding without difficulty and seems DrAvery physical baseline. She will discharged in stable condition follow-up with me in about 3 days. Patient Condition at Discharge: Fair Plan - Discharge Summary New Discharge Prescriptions: Continue Ferrous Sulfate [Iron (65 MG Elemental)] 325 mg PO DAILY Aspirin 81 mg PO DAILY #30 chew Vitamin B Complex 1 cap PO DAILY Ascorbic Acid [Vitamin C] 500 mg PO DAILY L.acidoph,Paracasei, B.lactis [Probiotic] 1 tab PO DAILY Apixaban [Eliquis] 5 mg PO BID #60 tab Cholecalciferol [Vitamin D3 (25 Mcg = 1000 Iu)] 50 mcg PO DAILY Amiodarone [Cordarone] 200 mg PO DAILY Potassium Chloride ER [K-Dur 20] 20 meq PO DAILY #90 tab Metoprolol Tartrate [Lopressor] 50 mg PO BID Diane 500 mg PO DAILY Inulin/Chromium Picolinate [Fiber Gummies Chew] 3 tab PO DAILY Furosemide [Lasix] 40 mg PO BID Enalapril Maleate [Vasotec] 5 mg PO BID Insulin Glargine,Hum.rec.anlog [Lantus Solostar] 22 unit SQ HS Albuterol Inhaler [Ventolin Hfa Inhaler] 2 puff INHALATION RT-QID PRN #1 inhaler PRN Reason: Shortness Of Breath Or Wheezing Discharge Medication List Ferrous Sulfate [Iron (65 MG Elemental)] 325 mg PO DAILY 02/12/19 [History] Aspirin 81 mg PO DAILY #30 chew 07/01/19 [Rx] Ascorbic Acid [Vitamin C] 500 mg PO DAILY 03/25/20 [History] L.acidoph,Paracasei, B.lactis [Probiotic] 1 tab PO DAILY 03/25/20 [History] Vitamin B Complex 1 cap PO DAILY 03/25/20 [History] Apixaban [Eliquis] 5 mg PO BID #60 tab 03/28/20 [Rx] Cholecalciferol [Vitamin D3 (25 Mcg = 1000 Iu)] 50 mcg PO DAILY 04/14/20 [History] Amiodarone [Cordarone] 200 mg PO DAILY 04/22/20 [History] Potassium Chloride ER [K-Dur 20] 20 meq PO DAILY #90 tab 04/25/20 [Rx] Metoprolol Tartrate [Lopressor] 50 mg PO BID 05/04/20 [History] Furosemide [Lasix] 40 mg PO BID 07/10/20 [History] Diane 500 mg PO DAILY 07/10/20 [History] Inulin/Chromium Picolinate [Fiber Gummies Chew] 3 tab PO DAILY 07/10/20 [History] Insulin Glargine,Hum.rec.anlog [Lantus Solostar] 22 unit SQ HS 07/19/20 [History] Albuterol Inhaler [Ventolin Hfa Inhaler] 2 puff INHALATION RT-QID PRN #1 inhaler 07/20/20 [Rx] Enalapril Maleate [Vasotec] 5 mg PO BID 08/17/20 [History] Follow up Appointment(s)/Referral(s): Last Barrios MD [Primary Care Provider] - 1-2 days [facility], [NON-STAFF] - As Needed
--- NOTE | 2020-08-19 09:55 | P.PN ---
Subjective Progress Note Date: 08/19/20 Principal diagnosis: Acute hypoxic respiratory failure related to CHF 75-year-old female, who presents to the emergency department on 08/17/2020 at 3:00 in the morning complaining of shortness of breath and possible CHF. The patient has a history of atrial fibrillation, CAD, angina, heart failure, diabetes, hypertension, myocardial infarction, osteoarthritis, and chronic kidn ey disease. Currently, the patient's resting very comfortably in her room. He was seen in room 468. She is currently not on any supplemental oxygen. She's not receiving any IV fluids. She denies any shortness of breath, difficulty breathing, coughing, wheezing, or phlegm production. She does have some lower extremity edema. She also denies any fever or chills, or chest pain. She does have a prior history of cardiac catheterization with stent placement, and the right coronary artery in December 2013, in the left anterior descending coronary artery in February 2019. White count 7.3, hemoglobin 10.3, hematocrit 32.9, and platelet count was normal. PT, INR, and PTT were all normal. Sodium 137, potassium 3.7, chlorides 99, CO2 28, anion gap 10, BUN 55, and creatinine 1.57. The N-terminal proBNP was 4510. TSH was elevated at 6.170. Troponin was 0.023. Chest x-ray in my opinion was consistent with fluid overload/CHF. Follow-up chest x-ray did show some improvement. There is nothing to suggest pneumonia as the patient denied any fever, chills, cough, phlegm production, etc. On 08/19/2020 patient seen in follow-up on medical surgical floor, she is sitting up in the recliner, on room air, breathing comfortably, denies any coughing, denies any phlegm production, no chest discomfort, room air pulse ox is 96%, she's been afebrile, hemodynamically she's been stable, no complaints of chest pain. Remains on IV Lasix at 40 mg every 12 hours, it is difficult to estimate the net fluid balance, but appears that the weight has remained the same or has been recorded incorrectly. No accurate intake and outputs. Mild pretibial edema. Lung sounds reveal diminished breath sounds, with no crackles at the bases. Blood cultures have been negative. Objective - Vital Signs Vital signs: Vital Signs Temp 98.2 F 08/19/20 08:00 Pulse 59 L 08/19/20 08:00 Resp 18 08/19/20 08:00 BP 145/64 08/19/20 08:00 Pulse Ox 96 08/19/20 08:00 Intake & Output 08/18/20 08/19/20 08/19/20 18:59 06:59 18:59 Weight 77.111 kg Other: Voiding Method Toilet # Voids 2 - Exam GENERAL EXAM: Alert, very pleasant, 75-year-old white female, on room air with pulse ox of 96% comfortable in no apparent distress. HEAD: Normocephalic/atraumatic. EYES: Normal reaction of pupils, equal size. Conjunctiva pink, sclera white. NOSE: Clear with pink turbinates. THROAT: No erythema or exudates. NECK: No masses, no JVD, no thyroid enlargement, no adenopathy. CHEST: No chest wall deformity. Symmetrical expansion. LUNGS: Equal air entry with no crackles, wheeze, rhonchi or dullness. CVS: Regular rate and rhythm, normal S1 and S2, no gallops, no murmurs, no rubs ABDOMEN: Soft, nontender. No hepatosplenomegaly, normal bowel sounds, no guarding or rigidity. EXTREMITIES: No clubbing, no edema, no cyanosis, 2+ pulses and upper and lower extremities. MUSCULOSKELETAL: Muscle strength and tone normal. SPINE: No scoliosis or deformity SKIN: No rashes CENTRAL NERVOUS SYSTEM: Alert and oriented -3. No focal deficits, tone is normal in all 4 extremities. PSYCHIATRIC: Alert and oriented -3. Appropriate affect. Intact judgment and insight. - Labs CBC & Chem 7: 08/18/20 08:26 08/18/20 08:26 Labs: Abnormal Lab Results - Last 24 Hours (Table) 08/18/20 08/18/20 08/18/20 Range/Units 08:26 08:26 08:26 RBC 3.74 L (3.80-5.40) m/uL Hgb 10.3 L (11.4-16.0) gm/dL Hct 32.9 L (34.0-46.0) % BUN 55 H (7-17) mg/dL Creatinine 1.57 H (0.52-1.04) mg/dL Glucose 103 H (74-99) mg/dL POC Glucose (mg/dL) (75-99) mg/dL Iron 9 L (50-170) ug/dL % Saturation 3.17 L (12.00-45.00) Procalcitonin (0.02-0.09) ng/mL 08/18/20 08/18/20 08/18/20 Range/Units 08:26 11:32 16:52 RBC (3.80-5.40) m/uL Hgb (11.4-16.0) gm/dL Hct (34.0-46.0) % BUN (7-17) mg/dL Creatinine (0.52-1.04) mg/dL Glucose (74-99) mg/dL POC Glucose (mg/dL) 257 H 183 H (75-99) mg/dL Iron (50-170) ug/dL % Saturation (12.00-45.00) Procalcitonin 0.88 H (0.02-0.09) ng/mL 08/18/20 08/18/20 08/19/20 Range/Units 20:23 21:48 06:49 RBC (3.80-5.40) m/uL Hgb (11.4-16.0) gm/dL Hct (34.0-46.0) % BUN (7-17) mg/dL Creatinine (0.52-1.04) mg/dL Glucose (74-99) mg/dL POC Glucose (mg/dL) 107 H 137 H 135 H (75-99) mg/dL Iron (50-170) ug/dL % Saturation (12.00-45.00) Procalcitonin (0.02-0.09) ng/mL Microbiology - Last 24 Hours (Table) 08/17/20 05:15 Blood Culture - Preliminary Blood No Growth after 48 hours 08/17/20 05:30 Blood Culture - Preliminary Blood No Growth after 48 hours Assessment and Plan Plan: Assessment: #1. Acute hypoxic respiratory failure related to acute exacerbation of CHF with diastolic dysfunction, doubt pneumonia #2. Severe pulmonary hypertension with right-sided pressure of 65 mmHg, with [id number] mitral regurgitation, and mild to moderate tricuspid regurgitation #3. History of atrial fibrillation #4. History of CAD with previous myocardial infarction, and previous stent placement #5. History of angina pectoris #6. History of CHF with diastolic dysfunction #7. History of diabetes mellitus and diabetic neuropathy #8. Hypertension #9. Osteoarthritis #10. Prior history of cardiac arrest Plan: Patient is doing well No worsening dyspnea Maintaining stable O2 saturations on room air We discontinued the antibiotics, doubt underlying pneumonia Lasix and cardiac medications per cardiology recommendations Patient could be discharged home from pulmonary perspective Outpatient follow-up with Dr. Robertson in the office in 7-10 days I performed a history & physical examination of the patient and discussed their management with my nurse practitioner, Ellen Mon. I reviewed the nurse practitioner's note and agree with the documented findings and plan of care. Lung sounds are positive for diminished breath sounds. The findings and the impression was discussed with the patient. I attest to the documentation by the nurse practitioner. Time with Patient: Less than 30
[2020-08-19 11:05] LABS: HCT 32.1 % (37.2-46.3); HGB 9.7 g/dL (12.0-15.0); MCH 27.2 pg (27.0-32.0); MCHC 30.2 g/dL (32.0-37.0); MCV 89.9 fL (80.0-97.0); Mean Platelet Volume 12.8 fL (9.5-12.2); Platelet Count 166 X 10*3/uL (140-440); RBC 3.57 X 10*6/uL (4.10-5.20); RDW 13.6 % (11.5-14.5); WBC 6.73 X 10*3/uL (4.50-10.00)
[2020-08-19 11:57] LABS: Glucose,Whole Blood 242 mg/dL (75-99)
--- NOTE | 2020-08-19 12:23 | P.PN ---
Subjective Patient is seen in follow-up for acute kidney injury on chronic kidney disease. Renal function improving with diuresis. Edema improved. Good urine output. No chest pain or shortness of breath. Currently on room air. Vital signs are stable. General: The patient appeared well nourished and normally developed. HEENT: Head exam is unremarkable. Neck is without jugular venous distension. LUNGS: Breath sounds decreased. HEART: Rate and Rhythm are regular. ABDOMEN: Soft, no distention. EXTREMITITES: No edema. Objective - Vital Signs Vital signs: Vital Signs Temp 98.2 F 08/19/20 08:00 Pulse 59 L 08/19/20 08:00 Resp 18 08/19/20 08:00 BP 145/64 08/19/20 08:00 Pulse Ox 96 08/19/20 08:00 Intake & Output 08/18/20 08/19/20 08/19/20 18:59 06:59 18:59 Weight 77.111 kg Other: Voiding Method Toilet Toilet # Voids 2 - Labs CBC & Chem 7: 08/19/20 07:41 08/18/20 08:26 Labs: Abnormal Lab Results - Last 24 Hours (Table) 08/18/20 08/18/20 08/18/20 Range/Units 08:26 08:26 16:52 RBC (4.10-5.20) X 10*6/uL Hgb (12.0-15.0) g/dL Hct (37.2-46.3) % MCHC (32.0-37.0) g/dL MPV (9.5-12.2) fL POC Glucose (mg/dL) 183 H (75-99) mg/dL Iron 9 L (50-170) ug/dL % Saturation 3.17 L (12.00-45.00) Procalcitonin 0.88 H (0.02-0.09) ng/mL 08/18/20 08/18/20 08/19/20 Range/Units 20:23 21:48 06:49 RBC (4.10-5.20) X 10*6/uL Hgb (12.0-15.0) g/dL Hct (37.2-46.3) % MCHC (32.0-37.0) g/dL MPV (9.5-12.2) fL POC Glucose (mg/dL) 107 H 137 H 135 H (75-99) mg/dL Iron (50-170) ug/dL % Saturation (12.00-45.00) Procalcitonin (0.02-0.09) ng/mL 08/19/20 08/19/20 Range/Units 07:41 11:56 RBC 3.57 L (4.10-5.20) X 10*6/uL Hgb 9.7 L (12.0-15.0) g/dL Hct 32.1 L (37.2-46.3) % MCHC 30.2 L (32.0-37.0) g/dL MPV 12.8 H (9.5-12.2) fL POC Glucose (mg/dL) 242 H (75-99) mg/dL Iron (50-170) ug/dL % Saturation (12.00-45.00) Procalcitonin (0.02-0.09) ng/mL Microbiology - Last 24 Hours (Table) 08/17/20 05:15 Blood Culture - Preliminary Blood No Growth after 48 hours 08/17/20 05:30 Blood Culture - Preliminary Blood No Growth after 48 hours Assessment and Plan Plan: Assessment: 1. Acute kidney injury mostly prerenal secondary to cardiorenal syndrome. Renal function improving. Creatinine 1.57 as of yesterday. UA benign. 2. Chronic kidney disease stage III with baseline creatinine near 1-1.2 secondary to cardiorenal syndrome. 3. Acute on chronic diastolic CHF and mild to moderate mitral and tricuspid regurgitation. 4. Pulmonary hypertension. 5. Diabetes mellitus. Plan: Change Lasix to 40 mg orally twice daily upon discharge. Advised low salt diet and 40-45 oz fluid restriction per day upon discharge. Also advised patient to monitor her weight closely at home and to increase Lasix to 40 mg 3 times daily if notices more than 3 pound weight gain in 1 week duration. Follow up outpatient in 1 week.
[2020-08-19 12:37] LABS: African American GFR (CKD) 35.7 (60.0-200.0); Albumin 3.8 g/dL (3.80-4.90); Albumin/Globulin Ratio 1.65 (1.60-3.17); Anion Gap 11.7 mmol/L (4.00-12.00); Calcium 8.8 mg/dL (8.7-10.3); Carbon Dioxide 26.3 mmol/L (21.6-31.8); Globulin 2.3 g/dL (1.6-3.3); Non-African American GFR(CKD) 30.8 (60.0-200.0); Potassium 3.7 mmol/L (3.5-5.5); Total Bilirubin 0.7 mg/dL (0.3-1.2); Total Protein 6.1 g/dL (6.2-8.2)
[2020-08-19] MEDS: AMIODARONE 100 MG TAB PO SCH (12:47)
== END 2020-08-19 14:19 | disposition home health service (06) | DRG 291 ==
LOC: EC 03:10 → 4SSUR 04:36
PROVIDERS: ADMIT Family Medicine; ATTEND Family Medicine
DX: I13.0 Hypertensive heart and chronic kidney disease with heart failure and stage 1 through stage 4 chronic kidney disease, or unspecified chronic kidney disease (principal); J96.01 Acute respiratory failure with hypoxia; I50.43 Acute on chronic combined systolic (congestive) and diastolic (congestive) heart failure; N17.0 Acute kidney failure with tubular necrosis; J44.1 Chronic obstructive pulmonary disease with (acute) exacerbation; J44.0 Chronic obstructive pulmonary disease with (acute) lower respiratory infection; E87.1 Hypo-osmolality and hyponatremia; I48.0 Paroxysmal atrial fibrillation; I25.10 Atherosclerotic heart disease of native coronary artery without angina pectoris; I25.2 Old myocardial infarction; I27.22 Pulmonary hypertension due to left heart disease; E78.5 Hyperlipidemia, unspecified; I08.1 Rheumatic disorders of both mitral and tricuspid valves; E11.40 Type 2 diabetes mellitus with diabetic neuropathy, unspecified; E11.22 Type 2 diabetes mellitus with diabetic chronic kidney disease; D63.8 Anemia in other chronic diseases classified elsewhere; N18.30 Chronic kidney disease, stage 3 unspecified; Z79.01 Long term (current) use of anticoagulants; Z79.4 Long term (current) use of insulin; Z79.82 Long term (current) use of aspirin; Z79.899 Other long term (current) drug therapy; Z95.5 Presence of coronary angioplasty implant and graft; G62.9 Polyneuropathy, unspecified; Z79.84 Long term (current) use of oral hypoglycemic drugs; Z96.1 Presence of intraocular lens; Z87.891 Personal history of nicotine dependence; Z87.440 Personal history of urinary (tract) infections; Z87.01 Personal history of pneumonia (recurrent); Z86.74 Personal history of sudden cardiac arrest; M19.90 Unspecified osteoarthritis, unspecified site; I44.7 Left bundle-branch block, unspecified
CPT/HCPCS: 36415; 71045; 71046; 80048; 80053; 81003; 83540; 83550; 83605; 83735; 83880; 84145; 84439; 84443; 84484; 85025; 85027; 85610; 85730; 87040; 87635; 93005; 94640; 99285

== ENCOUNTER 2020-08-21 01:46 | Inpatient (IN) | payer MEDICARE, OTHER ==
[2020-08-21] MEDS ORDERED: ALBUTEROL NEBULIZED 2.5 MG/3 ML INHALATION STA (01:47)
[2020-08-21] MEDS ORDERED: IPRATROPIUM 0.5 MG/2.5 ML NEBU INHALATION STA (01:47)
[2020-08-21] MEDS ORDERED: methylPREDNISolone SOD SUCCI 125 MG/2 ML VIAL IV STA (01:47)
[2020-08-21] MEDS ORDERED: SODIUM CHLORIDE 0.9% 1,000 ML IV STA (01:47)
[2020-08-21] MEDS ORDERED: LORazepam 2 MG/ML INJ IV STA (01:47)
--- NOTE | 2020-08-21 01:48 | ED ---
SOB HPI - General Stated Complaint: PERCY Time Seen by Provider: 08/21/20 01:47 Source: RN notes reviewed, old records reviewed - History of Present Illness Initial Comments: This is a 75-year-old female DF for evaluation patient Dese for evaluation regards to severe shortness of breath weakness unable to catch her breath with history of CHF multiple recent hospital admissions. Also complaining of chest pain today. She has occasional fevers and does feel fevers currently. MD Complaint: shortness of breath, cough, pain with inspiration, anxiety -: hour(s), days(s) Severity: moderate Severity scale (1-10): 6 Quality: aching Consistency: constant Improves With: nothing Known History Of: congestive heart failure Context: recent URI, anxiety, recent illness Associated Symptoms: chest pain, cough, sputum production Treatments Prior to Arrival: oxygen, bronchodilator, NIPPV - Related Data Home Medications Medication Instructions Recorded Confirmed Ferrous Sulfate [Iron (65 MG 325 mg PO DAILY 02/12/19 08/21/20 Elemental)] Ascorbic Acid [Vitamin C] 500 mg PO DAILY 03/25/20 08/21/20 L.acidoph,Paracasei, B.lactis 1 tab PO DAILY 03/25/20 08/21/20 [Probiotic] Vitamin B Complex 1 cap PO DAILY 03/25/20 08/21/20 Cholecalciferol [Vitamin D3 (25 50 mcg PO DAILY 04/14/20 08/21/20 Mcg = 1000 Iu)] Amiodarone [Cordarone] 200 mg PO DAILY 04/22/20 08/21/20 Metoprolol Tartrate [Lopressor] 50 mg PO BID 05/04/20 08/21/20 Diane 500 mg PO DAILY 07/10/20 08/21/20 Inulin/Chromium Picolinate [Fiber 3 tab PO DAILY 07/10/20 08/21/20 Gummies Chew] Insulin Glargine,Hum.rec.anlog 22 unit SQ HS 07/19/20 08/21/20 [Lantus Solostar] Enalapril Maleate [Vasotec] 5 mg PO BID 08/17/20 08/21/20 Previous Rx's Medication Instructions Recorded Aspirin 81 mg PO DAILY #30 chew 07/01/19 Apixaban [Eliquis] 5 mg PO BID #60 tab 01/15/21 Potassium Chloride ER [K-Dur 20] 20 meq PO DAILY #90 tab 04/25/20 Albuterol Inhaler [Ventolin Hfa 2 puff INHALATION RT-QID PRN #1 07/20/20 Inhaler] inhaler Furosemide [Lasix] 60 mg PO BID@0900,1600 #60 tab 08/23/20 Spironolactone [Aldactone] 25 mg PO DAILY #30 tab 08/23/20 Allergies Allergy/AdvReac Type Severity Reaction Status Date / Time Corticosteroids Allergy Unknown Unknown Verified 08/21/20 07:45 (Glucocorticoids) egg Allergy Unknown Unknown Verified 08/23/20 12:03 azithromycin [From Zithromax] Allergy Anaphylaxis Verified 08/21/20 07:45 banana Allergy Unknown Verified 08/21/20 07:45 carisoprodol [From Soma] Allergy Unknown Verified 08/21/20 07:45 ciprofloxacin [From Cipro] Allergy Unknown Verified 08/21/20 07:45 cortisone [Cortisone] Allergy Unknown Verified 08/21/20 07:45 cyclobenzaprine HCl Allergy Unknown Verified 08/21/20 07:45 [From Flexeril] latex Allergy Unknown Verified 08/21/20 07:45 Latex, Natural Rubber Allergy Unknown Verified 08/21/20 07:45 levofloxacin [From Levaquin] Allergy Anaphylaxis Verified 08/21/20 07:45 Penicillins Allergy Anaphylaxis Verified 08/21/20 07:45 Review of Systems ROS Statement: Those systems with pertinent positive or pertinent negative responses have been documented in the HPI. ROS Other: All systems not noted in ROS Statement are negative. Past Medical History Past Medical History: Atrial Fibrillation, Coronary Artery Disease (CAD), Chest Pain / Angina, Heart Failure, Diabetes Mellitus, Eye Disorder, Hypertension, Myocardial Infarction ([place]), Osteoarthritis (OA), Pneumonia, Renal Disease Additional Past Medical History / Comment(s): NIDDM type II, neuropathy bilateral feet, 01-03-14 [place]/cardiac arrest/resp failure/intubation, UTIs, past L eye retinal bleed with surgery. Last Myocardial Infarction Date:: 01-03-14 History of Any Multi-Drug Resistant Organisms: None Reported Past Surgical History: Heart Catheterization, Heart Catheterization With Stent Additional Past Surgical History / Comment(s): Stent RCA 01-07-14, stent LAD , L retinal bleed with surgery, bilateral cataract removal/lens implants, colonoscopy Past Anesthesia/Blood Transfusion Reactions: No Reported Reaction Date of Last Stent Placement:: 2013 Past Psychological History: No Psychological Hx Reported Additional Psychological History / Comment(s): Pt resides alone. She uses a walker. She does not drive, she gets rides from [employer] bus. Smoking Status: Former smoker Past Alcohol Use History: None Reported Additional Past Alcohol Use History / Comment(s): started smoking at age 27, smoked 1/2 ppd quit 2002 Past Drug Use History: None Reported - Past Family History Father Family Medical History: Cancer, Diabetes Mellitus Additional Family Medical History / Comment(s): age 70 from lung cancer Mother Family Medical History: COPD Additional Family Medical History / Comment(s): age 83 emphysema General Exam General appearance: alert, in no apparent distress Head exam: Present: atraumatic, normocephalic, normal inspection Eye exam: Present: normal appearance, PERRL, EOMI. Absent: scleral icterus, conjunctival injection, periorbital swelling ENT exam: Present: normal exam, mucous membranes moist Neck exam: Present: normal inspection. Absent: tenderness, meningismus, lymphadenopathy Respiratory exam: Present: normal lung sounds bilaterally. Absent: respiratory distress, wheezes, rales, rhonchi, stridor Cardiovascular Exam: Present: regular rate, normal rhythm, normal heart sounds. Absent: systolic murmur, diastolic murmur, rubs, gallop, clicks GI/Abdominal exam: Present: soft, normal bowel sounds. Absent: distended, tenderness, guarding, rebound, rigid Extremities exam: Present: normal inspection, full ROM, normal capillary refill. Absent: tenderness, pedal edema, joint swelling, calf tenderness Back exam: Present: normal inspection Neurological exam: Present: alert, oriented X3, CN II-XII intact Psychiatric exam: Present: normal affect, normal mood Skin exam: Present: warm, dry, intact, normal color. Absent: rash Course Vital Signs 08/21/20 08/21/20 08/21/20 01:57 02:09 02:19 Temperature 100.2 F H Pulse Rate 83 83 76 Respiratory 34 H Rate Blood Pressure 157/59 O2 Sat by Pulse 100 Oximetry 08/21/20 08/21/20 08/21/20 02:38 02:45 04:00 Temperature 100.4 F H 99 F Pulse Rate 80 80 70 Respiratory 18 25 H Rate Blood Pressure 129/47 105/44 O2 Sat by Pulse 98 99 Oximetry 08/21/20 08/21/20 08/21/20 06:25 06:30 07:46 Temperature 98 F Pulse Rate 70 61 Respiratory 24 20 Rate Blood Pressure 114/38 123/50 O2 Sat by Pulse 99 97 99 Oximetry 08/21/20 08/21/20 08/21/20 09:03 09:34 11:37 Temperature 97.8 F Pulse Rate 62 56 L Respiratory 20 Rate Blood Pressure 121/48 128/47 O2 Sat by Pulse 100 Oximetry 08/21/20 16:31 Temperature Pulse Rate 54 L Respiratory 20 Rate Blood Pressure 116/59 O2 Sat by Pulse 99 Oximetry - Reevaluation(s) Reevaluation #1: 08/21/20 06:38 Medical record is reviewed Reevaluation #2: 08/21/20 06:38 Patient is a poor strain and on BiPAP, placed on BiPAP upon arrival to the ER Medical Decision Making - Medical Decision Making 75 female with multifactorial for failure. Patient is increasing pulmonary edema bilateral lung opacities. Patient be admitted for further evaluation management - Lab Data Result diagrams: 08/21/20 02:01 08/23/20 06:32 Lab Results 08/21/20 08/21/20 08/21/20 Range/Units 02:01 02:01 02:01 WBC 13.6 H (3.8-10.6) k/uL RBC 3.66 L (3.80-5.40) m/uL Hgb 10.5 L (11.4-16.0) gm/dL Hct 31.2 L (34.0-46.0) % MCV 85.3 (80.0-100.0) fL MCH 28.6 (25.0-35.0) pg MCHC 33.5 (31.0-37.0) g/dL RDW 13.6 (11.5-15.5) % Plt Count 197 (150-450) k/uL MPV 9.2 Neutrophils % 73 % Lymphocytes % 14 % Monocytes % 10 % Eosinophils % 2 % Basophils % 0 % Neutrophils # 9.9 H (1.3-7.7) k/uL Lymphocytes # 2.0 (1.0-4.8) k/uL Monocytes # 1.3 H (0-1.0) k/uL Eosinophils # 0.2 (0-0.7) k/uL Basophils # 0.1 (0-0.2) k/uL PT 11.7 (9.0-12.0) sec INR 1.1 (<1.2) APTT 25.6 (22.0-30.0) sec Sodium 135 L (137-145) mmol/L Potassium 4.8 (3.5-5.1) mmol/L Chloride 98 (98-107) mmol/L Carbon Dioxide 26 (22-30) mmol/L Anion Gap 11 mmol/L BUN 41 H (7-17) mg/dL Creatinine 1.50 H (0.52-1.04) mg/dL Est GFR (CKD-EPI)AfAm 39 (>60 ml/min/1.73 sqM) Est GFR (CKD-EPI)NonAf 33 (>60 ml/min/1.73 sqM) Glucose 352 H (74-99) mg/dL Plasma Lactic Acid Jona (0.7-2.0) mmol/L Calcium 8.8 (8.4-10.2) mg/dL Magnesium 2.1 (1.6-2.3) mg/dL Total Bilirubin 1.2 (0.2-1.3) mg/dL AST 35 (14-36) U/L ALT 23 (4-34) U/L Alkaline Phosphatase 134 H (38-126) U/L Creatine Kinase 67 (30-135) U/L Troponin I (0.000-0.034) ng/mL NT-Pro-B Natriuret Pep pg/mL Total Protein 6.5 (6.3-8.2) g/dL Albumin 3.9 (3.5-5.0) g/dL Coronavirus (PCR) (Not Detectd) 08/21/20 08/21/20 08/21/20 Range/Units 02:01 02:01 02:01 WBC (3.8-10.6) k/uL RBC (3.80-5.40) m/uL Hgb (11.4-16.0) gm/dL Hct (34.0-46.0) % MCV (80.0-100.0) fL MCH (25.0-35.0) pg MCHC (31.0-37.0) g/dL RDW (11.5-15.5) % Plt Count (150-450) k/uL MPV Neutrophils % % Lymphocytes % % Monocytes % % Eosinophils % % Basophils % % Neutrophils # (1.3-7.7) k/uL Lymphocytes # (1.0-4.8) k/uL Monocytes # (0-1.0) k/uL Eosinophils # (0-0.7) k/uL Basophils # (0-0.2) k/uL PT (9.0-12.0) sec INR (<1.2) APTT (22.0-30.0) sec Sodium (137-145) mmol/L Potassium (3.5-5.1) mmol/L Chloride (98-107) mmol/L Carbon Dioxide (22-30) mmol/L Anion Gap mmol/L BUN (7-17) mg/dL Creatinine (0.52-1.04) mg/dL Est GFR (CKD-EPI)AfAm (>60 ml/min/1.73 sqM) Est GFR (CKD-EPI)NonAf (>60 ml/min/1.73 sqM) Glucose (74-99) mg/dL Plasma Lactic Acid Jona 1.7 (0.7-2.0) mmol/L Calcium (8.4-10.2) mg/dL Magnesium (1.6-2.3) mg/dL Total Bilirubin (0.2-1.3) mg/dL AST (14-36) U/L ALT (4-34) U/L Alkaline Phosphatase (38-126) U/L Creatine Kinase (30-135) U/L Troponin I 0.018 (0.000-0.034) ng/mL NT-Pro-B Natriuret Pep 9140 pg/mL Total Protein (6.3-8.2) g/dL Albumin (3.5-5.0) g/dL Coronavirus (PCR) (Not Detectd) 08/21/20 Range/Units 02:38 WBC (3.8-10.6) k/uL RBC (3.80-5.40) m/uL Hgb (11.4-16.0) gm/dL Hct (34.0-46.0) % MCV (80.0-100.0) fL MCH (25.0-35.0) pg MCHC (31.0-37.0) g/dL RDW (11.5-15.5) % Plt Count (150-450) k/uL MPV Neutrophils % % Lymphocytes % % Monocytes % % Eosinophils % % Basophils % % Neutrophils # (1.3-7.7) k/uL Lymphocytes # (1.0-4.8) k/uL Monocytes # (0-1.0) k/uL Eosinophils # (0-0.7) k/uL Basophils # (0-0.2) k/uL PT (9.0-12.0) sec INR (<1.2) APTT (22.0-30.0) sec Sodium (137-145) mmol/L Potassium (3.5-5.1) mmol/L Chloride (98-107) mmol/L Carbon Dioxide (22-30) mmol/L Anion Gap mmol/L BUN (7-17) mg/dL Creatinine (0.52-1.04) mg/dL Est GFR (CKD-EPI)AfAm (>60 ml/min/1.73 sqM) Est GFR (CKD-EPI)NonAf (>60 ml/min/1.73 sqM) Glucose (74-99) mg/dL Plasma Lactic Acid Jona (0.7-2.0) mmol/L Calcium (8.4-10.2) mg/dL Magnesium (1.6-2.3) mg/dL Total Bilirubin (0.2-1.3) mg/dL AST (14-36) U/L ALT (4-34) U/L Alkaline Phosphatase (38-126) U/L Creatine Kinase (30-135) U/L Troponin I (0.000-0.034) ng/mL NT-Pro-B Natriuret Pep pg/mL Total Protein (6.3-8.2) g/dL Albumin (3.5-5.0) g/dL Coronavirus (PCR) Not Detected (Not Detectd) - EKG Data -: EKG Interpreted by Me (EKG shows sinus rhythm 86 [place] 190 QRS 144 QTC 490) - Radiology Data Radiology results: report reviewed (Chest x-ray shows increasing pulmonary edema and opacities bilaterally), image reviewed Critical Care Time Critical Care Time: Yes Total Critical Care Time: 31 Disposition Clinical Impression: Dyspnea, Acute respiratory failure, Acute pulmonary edema, Systolic congestive heart failure Disposition: ADMITTED IP TO THIS HOSP Condition: Fair Is patient prescribed a controlled substance at d/c from ED?: No
[2020-08-21 02:14] LABS: Basophils # (A) 0.1 k/uL (0-0.2); Basophils % (A) 0 %; Eosinophils # (A) 0.2 k/uL (0-0.7); Eosinophils % (A) 2 %; HCT 31.2 % (34.0-46.0); HGB 10.5 gm/dL (11.4-16.0); Lymphocytes % (A) 14 %; MCH 28.6 pg (25.0-35.0); MCHC 33.5 g/dL (31.0-37.0); MCV 85.3 fL (80.0-100.0); Mean Platelet Volume 9.2; Monocytes # (A) 1.3 k/uL (0-1.0); Monocytes % (A) 10 %; Neutrophils # (A) 9.9 k/uL (1.3-7.7); Neutrophils % (A) 73 %; Platelet Count 197 k/uL (150-450); RBC 3.66 m/uL (3.80-5.40); RDW 13.6 % (11.5-15.5); WBC 13.6 k/uL (3.8-10.6)
[2020-08-21 02:28] LABS: INR 1.1 (<1.2); Partial Thromboplastin Time 25.6 sec (22.0-30.0); Prothrombin Time 11.7 sec (9.0-12.0)
--- NOTE | 2020-08-21 02:33 | XR ---
EXAM: XR Chest, 1 View CLINICAL HISTORY: ITS.REASON XR Reason: sob TECHNIQUE: Frontal view of the chest. COMPARISON: CXR 08/18/20. FINDINGS: Lungs: Worsening diffuse bilateral interstitial opacities. Pleural space: Possible small effusions. No pneumothorax. Heart: Stable mild cardiomegaly. Pulmonary vascular congestion. Bones/joints: No acute fracture. No dislocation. IMPRESSION: 1. Worsening diffuse bilateral interstitial opacities, most likely worsening pulmonary edema but viral/atypical pneumonia may appear similarly. 2. Small effusions.
[2020-08-21 02:41] LABS: Albumin 3.9 g/dL (3.5-5.0); Calcium 8.8 mg/dL (8.4-10.2); Magnesium 2.1 mg/dL (1.6-2.3); Potassium 4.8 mmol/L (3.5-5.1); Total Bilirubin 1.2 mg/dL (0.2-1.3); Total Protein 6.5 g/dL (6.3-8.2)
[2020-08-21] MEDS ORDERED: ACETAMINOPHEN IV (For NPO) 1,000 MG in EMPTY BAG 1 BAG IVPB STA (03:42)
[2020-08-21] MEDS: FUROSEMIDE 10 MG/ML 4 ML VIAL IV SCH ×5 (04:27→23:17)
--- NOTE | 2020-08-21 07:47 | P.HPIM ---
History of Present Illness H&P Date: 08/21/20 Chief Complaint: PEREZ This is a history and physical 75-year-old white female who was discharged yesterday because she wanted to go home even though I told the patient that she was not completely stable due to her history of heart failure. She has not underlying history of diabetes which is type II been insulin dependent. She is nonsmoker stated yesterday she got home her fatigue became worse. Her brother suggested that she get reevaluated and she is now readmitted. Please see previous discharge from yesterday. The patient has underlying history of CAD with heart failure diabetes atrial fibrillation and hypertension. Review of Systems Constitutional: Reports fatigue, Reports weakness Eyes: denies blurred vision, denies pain Ears, nose, mouth and throat: Denies headache, Denies sore throat Cardiovascular: Reports decreased exercise tolerance, Reports dyspnea on exertion, Denies chest pain Respiratory: Denies cough Gastrointestinal: Denies abdominal pain, Denies diarrhea, Denies nausea, Denies vomiting Genitourinary: Denies dysuria, Denies hematuria Musculoskeletal: Denies myalgias Past Medical History Past Medical History: Atrial Fibrillation, Coronary Artery Disease (CAD), Chest Pain / Angina, Heart Failure, Diabetes Mellitus, Eye Disorder, Hypertension, Myocardial Infarction ([place]), Osteoarthritis (OA), Pneumonia, Renal Disease Additional Past Medical History / Comment(s): NIDDM type II, neuropathy bilateral feet, 01-03-14 [place]/cardiac arrest/resp failure/intubation, UTIs, past L eye retinal bleed with surgery. Last Myocardial Infarction Date:: 01-03-14 History of Any Multi-Drug Resistant Organisms: None Reported Past Surgical History: Heart Catheterization, Heart Catheterization With Stent Additional Past Surgical History / Comment(s): Stent RCA 01-07-14, stent LAD 02/14/2019, L retinal bleed with surgery, bilateral cataract removal/lens implants, colonoscopy Past Anesthesia/Blood Transfusion Reactions: No Reported Reaction Date of Last Stent Placement:: 2013 Past Psychological History: No Psychological Hx Reported Additional Psychological History / Comment(s): Pt resides alone. She uses a walker. She does not drive, she gets rides from [employer] bus. Smoking Status: Former smoker Past Alcohol Use History: None Reported Additional Past Alcohol Use History / Comment(s): started smoking at age 27, smoked 1/2 ppd quit 2002 Past Drug Use History: None Reported - Past Family History Father Family Medical History: Cancer, Diabetes Mellitus Additional Family Medical History / Comment(s): age 70 from lung cancer Mother Family Medical History: COPD Additional Family Medical History / Comment(s): age 83 emphysema Medications and Allergies Home Medications Medication Instructions Recorded Confirmed Type Ferrous Sulfate [Iron (65 MG 325 mg PO DAILY 02/12/19 08/17/20 History Elemental)] Aspirin 81 mg PO DAILY #30 chew 07/01/19 08/17/20 Rx Ascorbic Acid [Vitamin C] 500 mg PO DAILY 03/25/20 08/17/20 History L.acidoph,Paracasei, B.lactis 1 tab PO DAILY 03/25/20 08/17/20 History [Probiotic] Vitamin B Complex 1 cap PO DAILY 03/25/20 08/17/20 History Apixaban [Eliquis] 5 mg PO BID #60 tab 03/28/20 08/17/20 Rx Cholecalciferol [Vitamin D3 (25 50 mcg PO DAILY 04/14/20 08/17/20 History Mcg = 1000 Iu)] Amiodarone [Cordarone] 200 mg PO DAILY 04/22/20 08/17/20 History Potassium Chloride ER [K-Dur 20] 20 meq PO DAILY #90 tab 04/25/20 08/17/20 Rx Metoprolol Tartrate [Lopressor] 50 mg PO BID 05/04/20 08/17/20 History Furosemide [Lasix] 40 mg PO BID 07/10/20 08/17/20 History Diane 500 mg PO DAILY 07/10/20 08/17/20 History Inulin/Chromium Picolinate [Fiber 3 tab PO DAILY 07/10/20 08/17/20 History Gummies Chew] Insulin Glargine,Hum.rec.anlog 22 unit SQ HS 07/19/20 08/17/20 History [Lantus Solostar] Albuterol Inhaler [Ventolin Hfa 2 puff INHALATION RT-QID PRN #1 07/20/20 08/17/20 Rx Inhaler] inhaler Enalapril Maleate [Vasotec] 5 mg PO BID 08/17/20 08/17/20 History Allergies Allergy/AdvReac Type Severity Reaction Status Date / Time Corticosteroids Allergy Unknown Unknown Verified 08/21/20 01:58 (Glucocorticoids) egg Allergy Unknown Unknown Verified 08/21/20 01:58 azithromycin [From Zithromax] Allergy Anaphylaxis Verified 08/21/20 01:58 banana Allergy Unknown Verified 08/21/20 01:58 carisoprodol [From Soma] Allergy Unknown Verified 08/21/20 01:58 ciprofloxacin [From Cipro] Allergy Unknown Verified 08/21/20 01:58 cortisone [Cortisone] Allergy Unknown Verified 08/21/20 01:58 cyclobenzaprine HCl Allergy Unknown Verified 08/21/20 01:58 [From Flexeril] latex Allergy Unknown Verified 08/21/20 01:58 Latex, Natural Rubber Allergy Unknown Verified 08/21/20 01:58 levofloxacin [From Levaquin] Allergy Anaphylaxis Verified 08/21/20 01:58 Penicillins Allergy Anaphylaxis Verified 08/21/20 01:58 Physical Exam Vitals: Vital Signs Temp Pulse Resp BP Pulse Ox 08/21/20 06:30 98 F 70 24 114/38 97 08/21/20 06:25 99 08/21/20 04:00 99 F 70 25 H 105/44 99 08/21/20 02:45 100.4 F H 80 18 129/47 98 08/21/20 02:38 80 08/21/20 02:19 76 08/21/20 02:09 83 08/21/20 01:57 100.2 F H 83 34 H 157/59 100 Intake and Output 08/20/20 08/21/20 08/21/20 22:59 06:59 14:59 Other: Weight 68.039 kg - Constitutional General appearance: no acute distress - EENT Eyes: EOMI - Neck Neck: no lymphadenopathy - Respiratory Respiratory: bilateral: diminished - Cardiovascular Rhythm: irregularly irregular Heart sounds: normal: S1, S2 Abnormal Heart Sounds: no S3 Gallop - Gastrointestinal General gastrointestinal: soft, no tenderness - Neurologic Neurologic: CNII-XII intact - Musculoskeletal Musculoskeletal: generalized weakness - Psychiatric Psychiatric: A&O x's 3 Results CBC & Chem 7: 08/21/20 02:01 08/21/20 02:01 Labs: Abnormal Lab Results - Last 24 Hours (Table) 08/21/20 08/21/20 08/21/20 Range/Units 02:01 02:01 04:22 WBC 13.6 H (3.8-10.6) k/uL RBC 3.66 L (3.80-5.40) m/uL Hgb 10.5 L (11.4-16.0) gm/dL Hct 31.2 L (34.0-46.0) % Neutrophils # 9.9 H (1.3-7.7) k/uL Monocytes # 1.3 H (0-1.0) k/uL Sodium 135 L (137-145) mmol/L BUN 41 H (7-17) mg/dL Creatinine 1.50 H (0.52-1.04) mg/dL Glucose 352 H (74-99) mg/dL Alkaline Phosphatase 134 H (38-126) U/L Troponin I 0.035 H* (0.000-0.034) ng/mL Assessment and Plan (1) Acute respiratory failure Current Visit: Yes Status: Acute Code(s): J96.00 - ACUTE RESPIRATORY FAILURE, UNSP W HYPOXIA OR HYPERCAPNIA SNOMED Code(s): 69625611 (2) Dyspnea Current Visit: Yes Status: Acute Code(s): R06.00 - DYSPNEA, UNSPECIFIED SNOMED Code(s): 653163211 (3) Systolic congestive heart failure Current Visit: Yes Status: Acute Code(s): I50.20 - UNSPECIFIED SYSTOLIC (CONGESTIVE) HEART FAILURE SNOMED Code(s): 03899008 (4) Atrial fibrillation Current Visit: No Status: Acute Code(s): I48.91 - UNSPECIFIED ATRIAL FIBRILLATION SNOMED Code(s): 44463656 (5) CHF exacerbation Current Visit: No Status: Acute Code(s): I50.9 - HEART FAILURE, UNSPECIFIED SNOMED Code(s): 737555588 (6) Insulin dependent type 2 diabetes mellitus Current Visit: No Status: Acute Code(s): E11.9 - TYPE 2 DIABETES MELLITUS WITHOUT COMPLICATIONS; Z79.4 - JEWELRY MODEL [employer]KER (CURRENT) USE OF INSULIN SNOMED Code(s): 146547768 Plan: Go ahead and continue diuresis. Consult cardiology for assistance. Reconcile home medications. Check CBC and CMP in a.m. Prognosis is guarded.
[2020-08-21] MEDS ORDERED: ALBUTEROL HFA INHALER INHALATION PRN (07:48)
[2020-08-21] MEDS ORDERED: NON FORMULARY DRUG (Inulin/Chromium Picolinate [Fiber Gummies Chew] 1 EACH Tab.Chew) PO SCH (09:00)
[2020-08-21] MEDS ORDERED: GINGER 500 MG PO SCH (09:00)
[2020-08-21] MEDS ORDERED: NON FORMULARY DRUG (Vitamin B Complex [Vitamin B Complex] 1 EACH Capsule) PO SCH (09:00)
[2020-08-21] MEDS ORDERED: POTASSIUM CHLORIDE ER 20 MEQ TAB.ER PO SCH (09:00)
[2020-08-21] MEDS ORDERED: AMIODARONE 200 MG TAB PO SCH (09:00)
[2020-08-21] MEDS: ASPIRIN 81 MG PO SCH (09:04)
[2020-08-21] MEDS: ASCORBIC ACID 500 MG TAB PO SCH (09:05)
[2020-08-21] MEDS: METOPROLOL TARTRATE 50 MG TAB PO SCH ×2 (09:05→20:44)
[2020-08-21] MEDS: lisinopriL 20 MG TAB PO SCH (09:06)
[2020-08-21] MEDS: CHOLECALCIFEROL 25 MCG (1000 IU) TABLET PO SCH (09:08)
[2020-08-21] MEDS: SPIRONOLACTONE 25 MG TAB PO SCH (09:10)
[2020-08-21] MEDS: FERROUS SULFATE 325 MG TAB PO SCH (09:10)
[2020-08-21] MEDS: APIXABAN 5 MG TAB PO SCH ×2 (09:10→20:44)
[2020-08-21] MEDS: LACTOBACILLUS ACIDOPH & BULGAR 1 EACH PACKET PO SCH (09:32)
[2020-08-21 09:37] LABS: Glucose,Whole Blood 447 mg/dL (75-99)
--- NOTE | 2020-08-21 10:56 | P.CRDCN ---
History of Present Illness History of present illness: HISTORY OF PRESENTING ILLNESS This is a pleasant 75-year-old female past medical history significant for coronary artery disease status post PCI, chronic diastolic heart failure, p aroxysmal atrial fibrillation and Eliquis, hypertension, diabetes mellitus, chronic kidney disease and bilateral neuropathy. She follows in the office with Dr. Chavez. We have been asked to see in consultation for shortness of breath. She presented to the hospital with progressively worsening shortness of breath and lower extremity edema. She was recently discharged from the hospital with similar symptoms. Recent echocardiogram obtained revealed preserved LV systolic function with evidence of severe pulmonary hypertension. She denies symptoms of chest pain, dizziness or palpitations. She underwent PCI in 2019 of the mid LAD as well as previous PCI of the RCA. DIAGNOSTICS EKG reveals sinus mechanism with some sinus arrhythmia and PACs and underlying left bundle branch block. Chest xray diffuse bilateral interstitial opacity's and small effusions noted. Laboratory reviewed, CBC 13.6, hemoglobin 10.5, platelets 197, sodium 135, potassium 4.8, creatinine 1.5, magnesium 2.1, troponin 0.0 18, 0.0 35, 0.0 28 and an IV proBNP 9140. Current cardiac medications include amiodarone 200 mg daily, Eliquis 5 mg twice a day, aspirin 81 mg daily, enalapril 5 mg twice a day, Lasix 40 mg twice a day and metoprolol 50 mg twice a day. REVIEW OF SYSTEMS At the time of my exam: CONSTITUTIONAL: Denies fever or chills. CARDIOVASCULAR: Complains of shortness of breath. Denies chest pain, orthopnea, PND or palpitations. RESPIRATORY: Denies cough. GASTROINTESTINAL: Denies abdominal pain, diarrhea, constipation, nausea or vomiting. MUSCULOSKELETAL: Denies myalgias. NEUROLOGIC: Denies numbness, tingling, headacbe or weakness. ENDOCRINE: Denies fatigue, weight change, polydipsia or polyurina. GENITOURINARY: Denies burning, hematuria or urgency with micturation. HEMATOLOGIC: Denies history of anemia or bleeding. PHYSICAL EXAMINATION Blood pressure 121/48 heart rate 62 afebrile and maintaining oxygen saturation on nasal cannula. CONSTITUTIONAL: No apparent distress. HEENT: Head is normocephalic. Pupils are equal, round. Sclerae anicteric. Mucous membranes of the mouth are moist. + JVD. No carotid bruit. CHEST EXAMINATION: Bibasilar rales, no wheezes or rhonchi. Diminished bilat erally. No chest wall tenderness is noted on palpation or with deep breathing. HEART EXAMINATION: Regular rate and rhythm. S1, S2 heard. No murmurs, gallops or rub. ABDOMEN: Soft, nontender. Positive bowel sounds. EXTREMITIES: 2+ peripheral pulses, 1+ bilateral lower extremity pitting edema and no calf tenderness. NEUROLOGIC EXAMINATION: Patient is awake, alert and oriented x3. ASSESSMENT Acute on chronic diastolic heart failure Pulmonary hypertension Coronary artery disease status post PCI Paroxysmal atrial fibrillation on Eliquis currently maintaining sinus mechanism Diabetes mellitus Chronic kidney disease Hypertension PLAN Continue IV diuresis. Initiate Aldactone 25 mg daily. Documented accurate intake and output along with daily weights. Follow renal function and electrolytes in the morning. Thank you kindly for this consultation. Nurse Practitioner note has been reviewed, I agree with a documented findings and plan of care. Patient was seen and examined. Past Medical History Past Medical History: Atrial Fibrillation, Coronary Artery Disease (CAD), Chest Pain / Angina, Heart Failure, Diabetes Mellitus, Eye Disorder, Hypertension, Myocardial Infarction ([place]), Osteoarthritis (OA), Pneumonia, Renal Disease Additional Past Medical History / Comment(s): NIDDM type II, neuropathy bilateral feet, 01-03-14 [place]/cardiac arrest/resp failure/intubation, UTIs, past L eye retinal bleed with surgery. Last Myocardial Infarction Date:: 01-03-14 History of Any Multi-Drug Resistant Organisms: None Reported Past Surgical History: Heart Catheterization, Heart Catheterization With Stent Additional Past Surgical History / Comment(s): Stent RCA 01-07-14, stent LAD 02/14/2019, L retinal bleed with surgery, bilateral cataract removal/lens implants, colonoscopy Past Anesthesia/Blood Transfusion Reactions: No Reported Reaction Date of Last Stent Placement:: 2013 Past Psychological History: No Psychological Hx Reported Additional Psychological History / Comment(s): Pt resides alone. She uses a walker. She does not drive, she gets rides from [employer] bus. Smoking Status: Former smoker Past Alcohol Use History: None Reported Additional Past Alcohol Use History / Comment(s): started smoking at age 27, smoked 1/2 ppd quit 2002 Past Drug Use History: None Reported - Past Family History Father Family Medical History: Cancer, Diabetes Mellitus Additional Family Medical History / Comment(s): age 70 from lung cancer Mother Family Medical History: COPD Additional Family Medical History / Comment(s): age 83 emphysema Medications and Allergies Home Medications Medication Instructions Recorded Confirmed Type Ferrous Sulfate [Iron (65 MG 325 mg PO DAILY 02/12/19 08/21/20 History Elemental)] Aspirin 81 mg PO DAILY #30 chew 07/01/19 08/21/20 Rx Ascorbic Acid [Vitamin C] 500 mg PO DAILY 03/25/20 08/21/20 History L.acidoph,Paracasei, B.lactis 1 tab PO DAILY 03/25/20 08/21/20 History [Probiotic] Vitamin B Complex 1 cap PO DAILY 03/25/20 08/21/20 History Apixaban [Eliquis] 5 mg PO BID #60 tab 03/28/20 08/21/20 Rx Cholecalciferol [Vitamin D3 (25 50 mcg PO DAILY 04/14/20 08/21/20 History Mcg = 1000 Iu)] Amiodarone [Cordarone] 200 mg PO DAILY 04/22/20 08/21/20 History Potassium Chloride ER [K-Dur 20] 20 meq PO DAILY #90 tab 04/25/20 08/21/20 Rx Metoprolol Tartrate [Lopressor] 50 mg PO BID 05/04/20 08/21/20 History Furosemide [Lasix] 40 mg PO BID 07/10/20 08/21/20 History Diane 500 mg PO DAILY 07/10/20 08/21/20 History Inulin/Chromium Picolinate [Fiber 3 tab PO DAILY 07/10/20 08/21/20 History Gummies Chew] Insulin Glargine,Hum.rec.anlog 22 unit SQ HS 07/19/20 08/21/20 History [Lantus Solostar] Albuterol Inhaler [Ventolin Hfa 2 puff INHALATION RT-QID PRN #1 07/20/20 08/21/20 Rx Inhaler] inhaler Enalapril Maleate [Vasotec] 5 mg PO BID 08/17/20 08/21/20 History Allergies Allergy/AdvReac Type Severity Reaction Status Date / Time Corticosteroids Allergy Unknown Unknown Verified 08/21/20 07:45 (Glucocorticoids) egg Allergy Unknown Unknown Verified 08/21/20 07:45 azithromycin [From Zithromax] Allergy Anaphylaxis Verified 08/21/20 07:45 banana Allergy Unknown Verified 08/21/20 07:45 carisoprodol [From Soma] Allergy Unknown Verified 08/21/20 07:45 ciprofloxacin [From Cipro] Allergy Unknown Verified 08/21/20 07:45 cortisone [Cortisone] Allergy Unknown Verified 08/21/20 07:45 cyclobenzaprine HCl Allergy Unknown Verified 08/21/20 07:45 [From Flexeril] latex Allergy Unknown Verified 08/21/20 07:45 Latex, Natural Rubber Allergy Unknown Verified 08/21/20 07:45 levofloxacin [From Levaquin] Allergy Anaphylaxis Verified 08/21/20 07:45 Penicillins Allergy Anaphylaxis Verified 08/21/20 07:45 Physical Exam Vitals: Vital Signs Temp Pulse Resp BP Pulse Ox 08/21/20 09:34 97.8 F 08/21/20 09:03 62 121/48 08/21/20 07:46 61 20 123/50 99 08/21/20 06:30 98 F 70 24 114/38 97 08/21/20 06:25 99 08/21/20 04:00 99 F 70 25 H 105/44 99 08/21/20 02:45 100.4 F H 80 18 129/47 98 08/21/20 02:38 80 08/21/20 02:19 76 08/21/20 02:09 83 08/21/20 01:57 100.2 F H 83 34 H 157/59 100 Intake and Output 08/20/20 08/21/20 08/21/20 22:59 06:59 14:59 Other: Weight 68.039 kg Results 08/21/20 02:01 08/21/20 02:01 Cardiac Enzymes 08/21/20 08/21/20 08/21/20 Range/Units 02:01 02:01 04:22 AST 35 (14-36) U/L Troponin I 0.018 0.035 H* (0.000-0.034) ng/mL 08/21/20 Range/Units 08:57 AST (14-36) U/L Troponin I 0.028 (0.000-0.034) ng/mL Coagulation 08/21/20 Range/Units 02:01 PT 11.7 (9.0-12.0) sec APTT 25.6 (22.0-30.0) sec CBC 08/21/20 Range/Units 02:01 WBC 13.6 H (3.8-10.6) k/uL RBC 3.66 L (3.80-5.40) m/uL Hgb 10.5 L (11.4-16.0) gm/dL Hct 31.2 L (34.0-46.0) % Plt Count 197 (150-450) k/uL Comprehensive Metabolic Panel 08/21/20 Range/Units 02:01 Sodium 135 L (137-145) mmol/L Potassium 4.8 (3.5-5.1) mmol/L Chloride 98 (98-107) mmol/L Carbon Dioxide 26 (22-30) mmol/L BUN 41 H (7-17) mg/dL Creatinine 1.50 H (0.52-1.04) mg/dL Glucose 352 H (74-99) mg/dL Calcium 8.8 (8.4-10.2) mg/dL AST 35 (14-36) U/L ALT 23 (4-34) U/L Alkaline Phosphatase 134 H (38-126) U/L Total Protein 6.5 (6.3-8.2) g/dL Albumin 3.9 (3.5-5.0) g/dL Current Medications Generic Name Dose Route Start Last Admin Trade Name Freq PRN Reason Stop Dose Admin Albuterol Sulfate 2 puff 08/21/20 07:48 Albuterol Hfa Inhaler INHALATION RT-QID PRN Shortness Of Breath Or Wheezing Amiodarone HCl 200 mg 08/21/20 09:00 08/21/20 09:07 Amiodarone 200 Mg Tab PO 200 mg DAILY GARRY Administration Apixaban 5 mg 08/21/20 09:00 08/21/20 09:10 Apixaban 5 Mg Tab PO 5 mg BID GARRY Administration Ascorbic Acid 500 mg 08/21/20 09:00 08/21/20 09:05 Ascorbic Acid 500 Mg Tab PO 500 mg DAILY GARRY Administration Aspirin 81 mg 08/21/20 09:00 08/21/20 09:04 Aspirin 81 Mg PO 81 mg DAILY GARRY Administration Cholecalciferol 50 mcg 08/21/20 09:00 08/21/20 09:08 Cholecalciferol 25 Mcg (1000 Iu) Tablet PO 50 mcg DAILY GARRY Administration Ferrous Sulfate 325 mg 06/10/21 09:00 08/21/20 09:10 Ferrous Sulfate 325 Mg Tab PO 325 mg DAILY GARRY Administration Furosemide 40 mg 08/21/20 04:00 08/21/20 09:10 Furosemide 10 Mg/Ml 4 Ml Vial IV 40 mg Q8HR GARRY Administration Insulin Detemir 22 unit 08/21/20 21:00 Insulin Detemir (Levemir) 100 Unit/Ml Syr SQ HS GARRY Lactobacillus Acidoph/Bulgaricus 1 each 08/21/20 09:00 08/21/20 09:32 Lactobacillus Acidoph & Bulgar 1 Each Packet PO 1 each DAILY GARRY Administration Lisinopril 20 mg 08/21/20 09:00 08/21/20 09:06 Lisinopril 20 Mg Tab PO Not Given DAILY GARRY Metoprolol Tartrate 50 mg 08/21/20 09:00 08/21/20 09:05 Metoprolol Tartrate 50 Mg Tab PO Not Given BID GARRY Spironolactone 25 mg 08/21/20 09:00 08/21/20 09:10 Spironolactone 25 Mg Tab PO 25 mg DAILY GARRY Administration Intake and Output 08/20/20 08/21/20 08/21/20 22:59 06:59 14:59 Other: Weight 68.039 kg 08/21/20 02:01 08/21/20 02:01
[2020-08-21 12:51] LABS: Glucose,Whole Blood 355 mg/dL (75-99)
[2020-08-21] MEDS: INSULIN ASPART (NovoLOG) 100 UNIT/ML VIAL SQ SCH ×3 (13:05→21:02)
[2020-08-21 14:35] LABS: Glucose,Whole Blood 352 mg/dL (75-99)
[2020-08-21 16:58] LABS: Glucose,Whole Blood 189 mg/dL (75-99)
[2020-08-21 21:00] LABS: Glucose,Whole Blood 264 mg/dL (75-99)
[2020-08-21] MEDS: INSULIN DETEMIR (LEVEMIR) 100 UNIT/ML SYR SQ SCH (21:02)
[2020-08-22] MEDS ORDERED: ALPRAZolam 0.5 MG TAB PO PRN (00:34)
[2020-08-22] MEDS ORDERED: ACETAMINOPHEN TAB 325 MG TAB PO PRN (00:34)
[2020-08-22 07:25] LABS: Glucose,Whole Blood 127 mg/dL (75-99)
[2020-08-22] MEDS: lisinopriL 20 MG TAB PO SCH (08:25)
--- NOTE | 2020-08-22 08:29 | P.PN ---
Subjective Progress Note Date: 08/22/20 Principal diagnosis: Congestive heart failure with shortness of breath The patient is 75-year-old white female with history of diabetes and atrial fibrillation who came in with significant recurrence of congestive heart failure due to multiplicity of issues including noncompliance. She promises to try to do better following her blood sugar and taking her medication appropriately. She is now on Lasix 40 mg every 8 hours. She feels much better and ambulated to the bathroom without significant difficulty. Rate is stable otherwise. Objective - Vital Signs Vital signs: Vital Signs Temp 97.7 F 08/22/20 07:30 Pulse 64 08/22/20 07:30 Resp 17 08/22/20 07:30 BP 113/65 08/22/20 07:30 Pulse Ox 90 L 08/22/20 07:30 Intake & Output 08/21/20 08/22/20 08/22/20 18:59 06:59 18:59 Output Total 900 Balance -900 Weight 68.039 kg Output: Urine 900 Other: Voiding Method Toilet - Constitutional General appearance: Present: no acute distress - EENT Eyes: Absent: abnormal pupil - Neck Neck: Absent: lymphadenopathy - Respiratory Respiratory: bilateral: CTA - Cardiovascular Rhythm: irregularly irregular Heart sounds: normal: S1, S2 Abnormal Heart Sounds: Absent: S3 Gallop - Gastrointestinal General gastrointestinal: Present: soft. Absent: tenderness - Integumentary Integumentary: Absent: rash - Psychiatric Psychiatric: Present: A&O x's 3 - Labs CBC & Chem 7: 08/21/20 02:01 08/21/20 02:01 Labs: Abnormal Lab Results - Last 24 Hours (Table) 08/21/20 08/21/20 08/21/20 Range/Units 09:36 12:50 14:34 POC Glucose (mg/dL) 447 H 355 H 352 H (75-99) mg/dL 08/21/20 08/21/20 08/22/20 Range/Units 16:57 20:58 07:22 POC Glucose (mg/dL) 189 H 264 H 127 H (75-99) mg/dL Assessment and Plan (1) Acute respiratory failure Current Visit: Yes Status: Acute Code(s): J96.00 - ACUTE RESPIRATORY FAILURE, UNSP W HYPOXIA OR HYPERCAPNIA SNOMED Code(s): 23490038 (2) Dyspnea Current Visit: Yes Status: Acute Code(s): R06.00 - DYSPNEA, UNSPECIFIED SNOMED Code(s): 719263018 (3) Systolic congestive heart failure Current Visit: Yes Status: Acute Code(s): I50.20 - UNSPECIFIED SYSTOLIC (CONGESTIVE) HEART FAILURE SNOMED Code(s): 59447589 (4) Atrial fibrillation Current Visit: No Status: Acute Code(s): I48.91 - UNSPECIFIED ATRIAL FIBRILLATION SNOMED Code(s): 33487412 (5) CHF exacerbation Current Visit: No Status: Acute Code(s): I50.9 - HEART FAILURE, UNSPECIFIED SNOMED Code(s): 375766253 (6) Insulin dependent type 2 diabetes mellitus Current Visit: No Status: Acute Code(s): E11.9 - TYPE 2 DIABETES MELLITUS WITHOUT COMPLICATIONS; Z79.4 - PRODUCTION ROUSTABOUT (CURRENT) USE OF INSULIN SNOMED Code(s): 548155336 Plan: Go ahead and continue diuresis. Hopefully we can wean off of IV Lasix within the next 24 hours. Check CMP in a.m. Dr. Appiah's group will be covering for the weekend.
[2020-08-22] MEDS: APIXABAN 5 MG TAB PO SCH ×2 (08:33→21:09)
[2020-08-22] MEDS: LACTOBACILLUS ACIDOPH & BULGAR 1 EACH PACKET PO SCH (08:33)
[2020-08-22] MEDS: ASPIRIN 81 MG PO SCH (08:33)
[2020-08-22] MEDS: FUROSEMIDE 10 MG/ML 4 ML VIAL IV SCH ×3 (08:33→23:04)
[2020-08-22] MEDS: FERROUS SULFATE 325 MG TAB PO SCH (08:35)
[2020-08-22] MEDS: METOPROLOL TARTRATE 50 MG TAB PO SCH ×2 (08:35→21:09)
[2020-08-22] MEDS: ASCORBIC ACID 500 MG TAB PO SCH (08:36)
[2020-08-22] MEDS: SPIRONOLACTONE 25 MG TAB PO SCH (08:36)
[2020-08-22] MEDS: CHOLECALCIFEROL 25 MCG (1000 IU) TABLET PO SCH (08:36)
[2020-08-22] MEDS: INSULIN ASPART (NovoLOG) 100 UNIT/ML VIAL SQ SCH ×4 (09:01→21:20)
[2020-08-22 11:36] LABS: Glucose,Whole Blood 379 mg/dL (75-99)
[2020-08-22 11:48] VITALS: BMI 29.2
[2020-08-22] MEDS: AMIODARONE 200 MG TAB PO SCH (11:56)
[2020-08-22 12:22] LABS: African American GFR (CKD) 38.5 (60.0-200.0); BUN/Creat Ratio 32.67 Ratio (12.00-20.00); Calcium 9.6 mg/dL (8.7-10.3); Non-African American GFR(CKD) 33.3 (60.0-200.0); Potassium 4.5 mmol/L (3.5-5.5)
--- NOTE | 2020-08-22 13:05 | P.PN ---
Progress Note - Text Progress Note Date: 08/22/20 This is a pleasant 75-year-old female patient who was admitted to the hospital with acute exacerbation of heart failure was preserved ejection fraction pH is known to have pulmonary hypertension and also coronary artery disease and paroxysmal atrial fibrillation and chronic kidney disease. She was seen this morning. She states she's feeling better. The chest is clear on examination but she does have still bilateral lower extremities swelling. Currently she is on Lasix. The creatinine is stable.
[2020-08-22 16:40] LABS: Glucose,Whole Blood 152 mg/dL (75-99)
[2020-08-22 20:44] LABS: Glucose,Whole Blood 156 mg/dL (75-99)
[2020-08-22] MEDS: INSULIN DETEMIR (LEVEMIR) 100 UNIT/ML SYR SQ SCH (21:14)
[2020-08-23 01:08] LABS: Glucose,Whole Blood 42 mg/dL (75-99)
[2020-08-23 01:20] LABS: Glucose,Whole Blood 45 mg/dL (75-99)
[2020-08-23 01:36] LABS: Glucose,Whole Blood 60 mg/dL (75-99)
[2020-08-23 01:56] LABS: Glucose,Whole Blood 82 mg/dL (75-99)
[2020-08-23 03:01] VITALS: TEMP 97.9
[2020-08-23 06:52] LABS: Glucose,Whole Blood 205 mg/dL (75-99)
[2020-08-23] MEDS: CHOLECALCIFEROL 25 MCG (1000 IU) TABLET PO SCH (07:31)
[2020-08-23] MEDS: METOPROLOL TARTRATE 50 MG TAB PO SCH (07:32)
[2020-08-23] MEDS: APIXABAN 5 MG TAB PO SCH (07:32)
[2020-08-23] MEDS: SPIRONOLACTONE 25 MG TAB PO SCH (07:32)
[2020-08-23] MEDS: ASPIRIN 81 MG PO SCH (07:32)
[2020-08-23] MEDS: INSULIN ASPART (NovoLOG) 100 UNIT/ML VIAL SQ SCH ×2 (07:33→11:48)
[2020-08-23] MEDS: ASCORBIC ACID 500 MG TAB PO SCH (07:33)
[2020-08-23] MEDS: LACTOBACILLUS ACIDOPH & BULGAR 1 EACH PACKET PO SCH (07:33)
[2020-08-23] MEDS: FUROSEMIDE 10 MG/ML 4 ML VIAL IV SCH (07:33)
[2020-08-23] MEDS: FERROUS SULFATE 325 MG TAB PO SCH (07:33)
[2020-08-23] MEDS: lisinopriL 20 MG TAB PO SCH (07:33)
[2020-08-23 08:41] VITALS: BP 127/65; PULSE 55; RESP 17
--- NOTE | 2020-08-23 10:05 | P.PN ---
Subjective Progress Note Date: 08/23/20 Principal diagnosis: Shortness of breath This is a 75-year-old female patient with paroxysmal atrial fibrillation and chronic kidney disease and coronary artery disease as well as pulmonary hypertension who was admitted to the hospital with acute exacerbation of heart failure with preserved ejection fraction. The patient was seen this morning. She is feeling overall better. She does have diminished breathing sounds bilaterally with no crackles beaches of mild bilateral lower extremities edema. From a perivascular standpoint of view, the patient can be discharged home. I'm going to DC Lasix IV and start the patient on Lasix by mouth. Objective - Vital Signs Vital signs: Vital Signs Temp 97.9 F 08/23/20 07:25 Pulse 55 L 08/23/20 07:25 Resp 17 08/23/20 07:25 BP 127/65 08/23/20 07:25 Pulse Ox 96 08/23/20 08:43 Intake & Output 08/22/20 08/23/20 08/23/20 18:59 06:59 18:59 Weight 68.039 kg Other: Voiding Method Toilet Toilet Toilet # Voids 2 - Constitutional General appearance: Present: no acute distress - Respiratory Respiratory: bilateral: diminished - Cardiovascular Rhythm: regular Heart sounds: normal: S1, S2 - Labs CBC & Chem 7: 08/21/20 02:01 08/22/20 07:08 Labs: Abnormal Lab Results - Last 24 Hours (Table) 08/22/20 08/22/20 08/22/20 Range/Units 07:08 11:34 16:38 BUN 49.0 H (9.0-27.0) mg/dL Est GFR (CKD-EPI)AfAm 38.5 L (60.0-200.0) Est GFR (CKD-EPI)NonAf 33.3 L (60.0-200.0) BUN/Creatinine Ratio 32.67 H (12.00-20.00) Ratio Glucose 114 H (70-110) mg/dL POC Glucose (mg/dL) 379 H 152 H (75-99) mg/dL 08/22/20 08/23/20 08/23/20 Range/Units 20:40 01:03 01:18 BUN (9.0-27.0) mg/dL Est GFR (CKD-EPI)AfAm (60.0-200.0) Est GFR (CKD-EPI)NonAf (60.0-200.0) BUN/Creatinine Ratio (12.00-20.00) Ratio Glucose (70-110) mg/dL POC Glucose (mg/dL) 156 H 42 L 45 L (75-99) mg/dL 08/23/20 08/23/20 Range/Units 01:35 06:50 BUN (9.0-27.0) mg/dL Est GFR (CKD-EPI)AfAm (60.0-200.0) Est GFR (CKD-EPI)NonAf (60.0-200.0) BUN/Creatinine Ratio (12.00-20.00) Ratio Glucose (70-110) mg/dL POC Glucose (mg/dL) 60 L 205 H (75-99) mg/dL Assessment and Plan Assessment: Assessment #1 heart failure with preserved ejection fraction exacerbation #2 paroxysmal atrial fibrillation #3 multiple comorbid conditions Plan #1 DC Lasix IV at start the patient on Lasix by mouth #2 the patient can be discharged
[2020-08-23 11:42] LABS: Glucose,Whole Blood 348 mg/dL (75-99)
[2020-08-23] MEDS: AMIODARONE 200 MG TAB PO SCH (11:48)
[2020-08-23 12:14] LABS: African American GFR (CKD) 41.9 (60.0-200.0); Albumin 3.3 g/dL (3.80-4.90); Albumin/Globulin Ratio 1.57 (1.60-3.17); Anion Gap 10.3 mmol/L (4.00-12.00); BUN/Creat Ratio 37.14 Ratio (12.00-20.00); Calcium 8.4 mg/dL (8.7-10.3); Carbon Dioxide 26.7 mmol/L (21.6-31.8); Globulin 2.1 g/dL (1.6-3.3); Non-African American GFR(CKD) 36.2 (60.0-200.0); Potassium 4.3 mmol/L (3.5-5.5); Total Bilirubin 0.8 mg/dL (0.3-1.2); Total Protein 5.4 g/dL (6.2-8.2)
[2020-08-23] MEDS ORDERED: FUROSEMIDE 20 MG TAB PO SCH (16:00)
--- NOTE | 2020-09-12 23:59 | P.DS ---
Providers Date of admission: 08/21/20 03:46 Expected date of discharge: 08/23/20 Attending physician: Last Barrios Consults: 08/21/20 03:45 Consult Physician Routine Consulting Provider: Mita Simpson Consult Reason/Comments: chf Do you want consulting provider notified?: Yes Primary care physician: Last Barrios [facility] Course: This is a pleasant 75-year-old female past medical history significant for coronary artery disease status post PCI, chronic diastolic heart failure, paroxysmal atrial fibrillation and Eliquis, hypertension, diabetes mellitus, chronic kidney disease and bilateral neuropathy. She follows in the office with Dr. Chavez. We have been asked to see in consultation for shortness of breath. She presented to the hospital with progressively worsening shortness of breath and lower extremity edema. She was recently discharged from the hospital with similar symptoms. Recent echocardiogram obtained revealed preserved LV systolic function with evidence of severe pulmonary hypertension. She denies symptoms of chest pain, dizziness or palpitations. She underwent PCI in 2019 of the mid LAD as well as previous PCI of the RCA. EKG reveals sinus mechanism with some sinus arrhythmia and PACs and underlying left bundle branch block. Chest xray diffuse bilateral interstitial opacity's and small effusions noted. Laboratory reviewed, CBC 13.6, hemoglobin 10.5, platelets 197, sodium 135, potassium 4.8, creatinine 1.5, magnesium 2.1, troponin 0.0 18, 0.0 35, 0.0 28 and an IV proBNP 9140. Current cardiac medications include amiodarone 200 mg daily, Eliquis 5 mg twice a day, aspirin 81 mg daily, enalapril 5 mg twice a day, Lasix 40 mg twice a day and metoprolol 50 mg twice a day. patient admitted and treated with---- Acute on chronic diastolic heart failure Pulmonary hypertension Coronary artery disease status post PCI Paroxysmal atrial fibrillation on Eliquis currently maintaining sinus mechanism Diabetes mellitus Chronic kidney disease Hypertension Continue IV diuresis. Initiate Aldactone 25 mg daily. Documented accurate intake and output along with daily weights. Follow renal function and electrolytes in the morning. patient responded well to IV diuretics and was transitioned to oral and dc'ed home in a stable condition Patient Condition at Discharge: Fair Plan - Discharge Summary Discharge Rx Participant: No New Discharge Prescriptions: New Spironolactone [Aldactone] 25 mg PO DAILY #30 tab Furosemide [Lasix] 60 mg PO BID@0900,1600 #60 tab Continue Ferrous Sulfate [Iron (65 MG Elemental)] 325 mg PO DAILY Aspirin 81 mg PO DAILY #30 chew Vitamin B Complex 1 cap PO DAILY Ascorbic Acid [Vitamin C] 500 mg PO DAILY L.acidoph,Paracasei, B.lactis [Probiotic] 1 tab PO DAILY Apixaban [Eliquis] 5 mg PO BID #60 tab Cholecalciferol [Vitamin D3 (25 Mcg = 1000 Iu)] 50 mcg PO DAILY Amiodarone [Cordarone] 200 mg PO DAILY Potassium Chloride ER [K-Dur 20] 20 meq PO DAILY #90 tab Metoprolol Tartrate [Lopressor] 50 mg PO BID Diane 500 mg PO DAILY Inulin/Chromium Picolinate [Fiber Gummies Chew] 3 tab PO DAILY Enalapril Maleate [Vasotec] 5 mg PO BID Insulin Glargine,Hum.rec.anlog [Lantus Solostar] 22 unit SQ HS Albuterol Inhaler [Ventolin Hfa Inhaler] 2 puff INHALATION RT-QID PRN #1 inhaler PRN Reason: Shortness Of Breath Or Wheezing Discontinued Furosemide [Lasix] 40 mg PO BID Discharge Medication List Ferrous Sulfate [Iron (65 MG Elemental)] 325 mg PO DAILY 02/12/19 [History] Aspirin 81 mg PO DAILY #30 chew 07/01/19 [Rx] Ascorbic Acid [Vitamin C] 500 mg PO DAILY 03/25/20 [History] L.acidoph,Paracasei, B.lactis [Probiotic] 1 tab PO DAILY 03/25/20 [History] Vitamin B Complex 1 cap PO DAILY 03/25/20 [History] Apixaban [Eliquis] 5 mg PO BID #60 tab 03/28/20 [Rx] Cholecalciferol [Vitamin D3 (25 Mcg = 1000 Iu)] 50 mcg PO DAILY 04/14/20 [History] Amiodarone [Cordarone] 200 mg PO DAILY 04/22/20 [History] Potassium Chloride ER [K-Dur 20] 20 meq PO DAILY #90 tab 04/25/20 [Rx] Metoprolol Tartrate [Lopressor] 50 mg PO BID 05/04/20 [History] Diane 500 mg PO DAILY 07/10/20 [History] Inulin/Chromium Picolinate [Fiber Gummies Chew] 3 tab PO DAILY 07/10/20 [History] Insulin Glargine,Hum.rec.anlog [Lantus Solostar] 22 unit SQ HS 07/19/20 [History] Albuterol Inhaler [Ventolin Hfa Inhaler] 2 puff INHALATION RT-QID PRN #1 inhaler 07/20/20 [Rx] Enalapril Maleate [Vasotec] 5 mg PO BID 08/17/20 [History] Furosemide [Lasix] 60 mg PO BID@0900,1600 #60 tab 08/23/20 [Rx] Spironolactone [Aldactone] 25 mg PO DAILY #30 tab 08/23/20 [Rx] Follow up Appointment(s)/Referral(s): Last Barrios MD [Primary Care Provider] - 1-2 days [facility], [NON-STAFF] - Patient Instructions/Handouts: Heart Failure (DC) Discharge Disposition: HOME WITH HOME HEALTH SERVICES
== END 2020-08-23 14:05 | disposition home health service (06) | DRG 291 ==
LOC: EC 01:46 → 4SSUR 03:46
PROVIDERS: ADMIT Family Medicine; ATTEND Family Medicine
PROC: 5A09357 Assistance with Respiratory Ventilation, Less than 24 Consecutive Hours, Continuous Positive Airway Pressure (ICD-10-PCS; principal; 2020-08-21)
DX: I13.0 Hypertensive heart and chronic kidney disease with heart failure and stage 1 through stage 4 chronic kidney disease, or unspecified chronic kidney disease (principal); I50.33 Acute on chronic diastolic (congestive) heart failure; J96.01 Acute respiratory failure with hypoxia; I27.20 Pulmonary hypertension, unspecified; E11.22 Type 2 diabetes mellitus with diabetic chronic kidney disease; E11.40 Type 2 diabetes mellitus with diabetic neuropathy, unspecified; I48.0 Paroxysmal atrial fibrillation; Z79.4 Long term (current) use of insulin; Z20.822 Contact with and (suspected) exposure to COVID-19; F41.9 Anxiety disorder, unspecified; I25.10 Atherosclerotic heart disease of native coronary artery without angina pectoris; N18.9 Chronic kidney disease, unspecified; I25.2 Old myocardial infarction; M19.90 Unspecified osteoarthritis, unspecified site; Z91.19 Patient's noncompliance with other medical treatment and regimen; Z79.01 Long term (current) use of anticoagulants; Z79.82 Long term (current) use of aspirin; Z79.899 Other long term (current) drug therapy; Z87.440 Personal history of urinary (tract) infections; Z86.69 Personal history of other diseases of the nervous system and sense organs; Z95.5 Presence of coronary angioplasty implant and graft; Z98.42 Cataract extraction status, left eye; Z98.41 Cataract extraction status, right eye; Z96.1 Presence of intraocular lens; Z87.891 Personal history of nicotine dependence; Z60.2 Problems related to living alone; Z86.74 Personal history of sudden cardiac arrest; Z87.01 Personal history of pneumonia (recurrent); Z88.1 Allergy status to other antibiotic agents; Z91.012 Allergy to eggs; Z91.040 Latex allergy status; Z88.0 Allergy status to penicillin; Z88.8 Allergy status to other drugs, medicaments and biological substances; Z91.018 Allergy to other foods; Z83.3 Family history of diabetes mellitus; Z80.1 Family history of malignant neoplasm of trachea, bronchus and lung; Z82.5 Family history of asthma and other chronic lower respiratory diseases
CPT/HCPCS: 36415; 71045; 80048; 80053; 82550; 83605; 83735; 83880; 84484; 85025; 85610; 85730; 87635; 93005; 94644; 94660; 94760; 96360; 96361; 99285

== ENCOUNTER 2020-12-05 15:04 | Emergency (ER) | payer MEDICARE, OTHER ==
[2020-12-05 15:29] VITALS: TEMP 98.1
[2020-12-05] MEDS ORDERED: ACETAMINOPHEN TAB 325 MG TAB PO STA (17:21)
--- NOTE | 2020-12-05 17:34 | ED ---
Fall HPI - General Chief Complaint: Fall Stated Complaint: Fall-Hand Injury on blood thinner Time Seen by Provider: 12/05/20 17:07 Source: patient, family Mode of arrival: wheelchair - History of Present Illness Initial Comments: 75-year-old well-appearing white female, alert and oriented 4, presents to the emergency room with complaints of tripping on one step falling forward onto an outstretched left arm. She is complaining of left elbow pain, abrasion to her left cheek and nose, and right hand skin tear. She denies any loss of consciousness. She takes eloquis for atrial fibrillation. She denies any neck pain or headaches. She states that it is just her left elbow that is hurting her. She states that she is not sure of her tetanus is up-to-date but she does not want a tetanus shot today. Complaint: fall -: hour(s) (2) Fall From: standing When Fall Occurred: 1-3 hours TROMPER Fall Witnessed: no Loss of Consciousness: none Prolonged Down Time?: no Location - Extremities: Left: Elbow Severity scale (1-10): 4 Quality: sharp Context: tripped/slipped Associated Symptoms: other (Abrasion to left cheek and right hand) - Related Data Home Medications Medication Instructions Recorded Confirmed Ferrous Sulfate [Iron (65 MG 325 mg PO DAILY 02/12/19 08/21/20 Elemental)] Ascorbic Acid [Vitamin C] 500 mg PO DAILY 03/25/20 08/21/20 LAveryacidFany liriano B.lactis 1 tab PO DAILY 03/25/20 08/21/20 [Probiotic] Vitamin B Complex 1 cap PO DAILY 03/25/20 08/21/20 Cholecalciferol [Vitamin D3 (25 50 mcg PO DAILY 04/14/20 08/21/20 Mcg = 1000 Iu)] Amiodarone [Cordarone] 200 mg PO DAILY 04/22/20 08/21/20 Metoprolol Tartrate [Lopressor] 50 mg PO BID 05/04/20 08/21/20 Diane 500 mg PO DAILY 07/10/20 08/21/20 Inulin/Chromium Picolinate [Fiber 3 tab PO DAILY 07/10/20 08/21/20 Gummies Chew] Insulin Glargine,Hum.rec.anlog 22 unit SQ HS 07/19/20 08/21/20 [Lantus Solostar Pen] Enalapril Maleate [Vasotec] 5 mg PO BID 08/17/20 08/21/20 Previous Rx's Medication Instructions Recorded Aspirin 81 mg PO DAILY #30 chew 07/01/19 Apixaban [Eliquis] 5 mg PO BID #60 tab 03/28/20 Potassium Chloride ER [K-Dur 20] 20 meq PO DAILY #90 tab 04/25/20 Albuterol Inhaler [Ventolin Hfa 2 puff INHALATION RT-QID PRN #1 07/20/20 Inhaler] inhaler Furosemide [Lasix] 60 mg PO BID@0900,1600 #60 tab 08/23/20 Spironolactone [Aldactone] 25 mg PO DAILY #30 tab 08/23/20 Allergies Allergy/AdvReac Type Severity Reaction Status Date / Time Corticosteroids Allergy Unknown Unknown Verified 12/05/20 15:29 (Glucocorticoids) egg Allergy Unknown Unknown Verified 12/05/20 15:29 azithromycin [From Zithromax] Allergy Anaphylaxis Verified 12/05/20 15:29 banana Allergy Unknown Verified 12/05/20 15:29 carisoprodol [From Soma] Allergy Unknown Verified 12/05/20 15:29 ciprofloxacin [From Cipro] Allergy Unknown Verified 12/05/20 15:29 cortisone [Cortisone] Allergy Unknown Verified 12/05/20 15:29 cyclobenzaprine HCl Allergy Unknown Verified 12/05/20 15:29 [From Flexeril] latex Allergy Unknown Verified 12/05/20 15:29 Latex, Natural Rubber Allergy Unknown Verified 12/05/20 15:29 levofloxacin [From Levaquin] Allergy Anaphylaxis Verified 12/05/20 15:29 Penicillins Allergy Anaphylaxis Verified 12/05/20 15:29 Review of Systems ROS Statement: Those systems with pertinent positive or pertinent negative responses have been documented in the HPI. ROS Other: All systems not noted in ROS Statement are negative. Past Medical History Past Medical History: Atrial Fibrillation, Coronary Artery Disease (CAD), Chest Pain / Angina, Heart Failure, Diabetes Mellitus, Eye Disorder, Hypertension, Myocardial Infarction ([place]), Osteoarthritis (OA), Pneumonia, Renal Disease Additional Past Medical History / Comment(s): NIDDM type II, neuropathy bilateral feet, 01-03-14 [place]/cardiac arrest/resp failure/intubation, UTIs, past L eye retinal bleed with surgery. Last Myocardial Infarction Date:: 01-03-14 History of Any Multi-Drug Resistant Organisms: None Reported Past Surgical History: Heart Catheterization, Heart Catheterization With Stent Additional Past Surgical History / Comment(s): Stent RCA 01-07-14, stent LAD 02/14/2019, L retinal bleed with surgery, bilateral cataract removal/lens implants, colonoscopy Past Anesthesia/Blood Transfusion Reactions: No Reported Reaction Date of Last Stent Placement:: 2013 Past Psychological History: No Psychological Hx Reported Smoking Status: Former smoker Past Alcohol Use History: None Reported Past Drug Use History: None Reported - Past Family History Father Family Medical History: Cancer, Diabetes Mellitus Additional Family Medical History / Comment(s): age 70 from lung cancer Mother Family Medical History: COPD Additional Family Medical History / Comment(s): age 83 emphysema General Exam Limitations: no limitations General appearance: alert, in no apparent distress Head exam: Present: other (Abrasion above the top lip, abrasion to the left zygomatic arch ) Eye exam: Present: normal appearance, EOMI. Absent: scleral icterus, conjunctival injection, periorbital swelling ENT exam: Present: normal exam, mucous membranes moist Neck exam: Present: normal inspection, full ROM. Absent: tenderness, meningismus, lymphadenopathy, thyromegaly Respiratory exam: Present: normal lung sounds bilaterally. Absent: respiratory distress, wheezes, rales, rhonchi, stridor Cardiovascular Exam: Present: bradycardia GI/Abdominal exam: Present: soft. Absent: distended, tenderness, guarding, rebound, rigid Left Elbow exam: Present: full ROM, tenderness, swelling, tenderness over radial head. Absent: laceration, ecchymosis, deformity, crepitus, dislocation, erythema, effusion, pain w/ pronation/supination Forearm Wrist exam: Present: normal inspection, full ROM. Absent: tenderness Hand Wrist exam: Present: normal inspection, full ROM. Absent: tenderness Neuro motor exam: Present: wrist extension intact, thumb opposition intact, thumb IP flexion intact, thumb adduction intact, fingers 2-5 abduction intact Neurosensory exam: Present: radial nerve intact, ulnar nerve intact, median nerve intact Vascular: Present: normal capillary refill. Absent: vascular compromise Back exam: Present: normal inspection, full ROM. Absent: tenderness Neurological exam: Present: alert, oriented X3, CN II-XII intact Psychiatric exam: Present: normal affect, normal mood Skin exam: Present: warm, dry, normal color, other (Size skin tear to the dorsal aspect of the right hand; abrasion to the left cheekbone; abrasion above the top lip below the right nostril) Course Vital Signs 12/05/20 12/05/20 15:25 19:13 Temperature 98.1 F Pulse Rate 53 L 89 Respiratory 20 18 Rate Blood Pressure 155/57 138/78 O2 Sat by Pulse 100 99 Oximetry Medical Decision Making - Medical Decision Making 75-year-old female patient alert and oriented 4, denies hitting her head. She has no focal neurological deficits. She is complaining only of left elbow pain x-ray is negative. She'll be directed to follow up with orthopedics next week. Continue Tylenol and/or Motrin as needed for pain. Keep wounds covered with bacitracin and Band-Aids Disposition Clinical Impression: Fall, Abrasions of multiple sites Disposition: HOME SELF-CARE Condition: Good Instructions (If sedation given, give patient instructions): Fall Prevention for Older Adults (ED), Elbow Sprain (ED), Abrasion (ED), Skin Tear (ED) Additional Instructions: Keep wounds clean and dry. Follow-up with the primary care doctor next week. Return to the emergency room with any new or worsening symptoms including increased pain. Is patient prescribed a controlled substance at d/c from ED?: No Referrals: Last Barrios MD [Primary Care Provider] - 1-2 days Time of Disposition: 19:07
--- NOTE | 2020-12-05 18:25 | CT ---
EXAMINATION TYPE: CT facial bones wo con DATE OF EXAM: 12/05/2020 COMPARISON: None HISTORY: Fall today with facial pain. CT DLP: 1107.2 mGycm Automated exposure control for dose reduction was used. TECHNIQUE: CT scan of the sinuses is performed without contrast, axial images are obtained, coronal r eformatted images are also reviewed. FINDINGS: Subtle fracture/deformity of the nasal bridge with mild overlying swelling. The paranasal sinuses in cluding the frontal, ethmoid, sphenoid, and maxillary sinuses bilaterally are well-aerated without ab normal opacification. The ostiomeatal complex is patent bilaterally on the coronal images. Visualized portion of mastoid air cells show no abnormal opacification. The globes are intact bilate rally. Subtle fracture/deformity of the nasal bridge with mild overlying swelling. Correlate for aldo sahu.
--- NOTE | 2020-12-05 18:30 | CT ---
EXAMINATION TYPE: CT brain emilyine wo con DATE OF EXAM: 12/05/2020 COMPARISON: None HISTORY: Fall today with facial pain. CT DLP: 1107.2 mGycm Automated exposure control for dose reduction was used. TECHNIQUE: CT scan of the head and cervical spine are performed without contrast. FINDINGS: There is no acute intracranial hemorrhage, mass effect, or midline shift identified. The ventricles and sulci are within normal limits in size. The globes are intact and the visualized sin uses are clear. Cervical spine is visualized in its entirety from C1 through upper thoracic levels and demonstrates s atisfactory alignment without evidence of acute fracture or dislocation. Prevertebral soft tissue ap pears within normal limits. The C1-C2 articulation is unremarkable. Multilevel degenerative disc bul ges in the cervical spine is at C3-C4 C4-C5 and C5-C6 degenerative changes of the atlantoaxial joint. 7 mm calcified, nodule within the spinal canal at C5 is indeterminate but may represent a calcified i ntraspinal meningioma. IMPRESSION: 1. There is no acute fracture or dislocation evident in the cervical spine. 2. No acute intracranial hemorrhage, mass effect, or midline shift is seen.
--- NOTE | 2020-12-05 18:41 | XR ---
EXAMINATION TYPE: XR elbow complete LT DATE OF EXAM: 12/05/2020 CLINICAL HISTORY: Pain from fall today TECHNIQUE: Frontal, lateral and oblique images of the left elbow are obtained. COMPARISON: None FINDINGS: There is no acute fracture/dislocation evident in the left elbow. No abnormal fat pad sig ns are seen. The overlying soft tissue appears unremarkable. IMPRESSION: There is no acute fracture or dislocation in the left elbow.
[2020-12-05 19:14] VITALS: BP 138/78; PULSE 89; RESP 18
== END 2020-12-05 19:20 | disposition home or self-care (01) ==
LOC: EC 15:04
DX: S00.511A Abrasion of lip, initial encounter (principal); S00.81XA Abrasion of other part of head, initial encounter; S00.31XA Abrasion of nose, initial encounter; S60.511A Abrasion of right hand, initial encounter; E11.9 Type 2 diabetes mellitus without complications; I11.0 Hypertensive heart disease with heart failure; I50.9 Heart failure, unspecified; I25.2 Old myocardial infarction; Z88.8 Allergy status to other drugs, medicaments and biological substances; Z88.0 Allergy status to penicillin; Z91.040 Latex allergy status; Z91.012 Allergy to eggs; Z88.1 Allergy status to other antibiotic agents; Z91.018 Allergy to other foods; Z87.891 Personal history of nicotine dependence; Z79.899 Other long term (current) drug therapy; Z79.4 Long term (current) use of insulin; W01.0XXA Fall on same level from slipping, tripping and stumbling without subsequent striking against object, initial encounter; Y92.89 Other specified places as the place of occurrence of the external cause
CPT/HCPCS: 70450; 70486; 72125; 99284

== ENCOUNTER 2021-03-13 18:41 | Inpatient (IN) | payer MEDICARE, OTHER ==
[2021-03-13] MEDS ORDERED: SODIUM CHLORIDE 0.9% 1,000 ML IV STA (19:09)
--- NOTE | 2021-03-13 19:37 | ED ---
General Adult HPI - General Chief complaint: Headache Stated complaint: weakness Time Seen by Provider: 03/13/21 19:05 Source: patient, EMS, RN notes reviewed Mode of arrival: EMS Limitations: no limitations - History of Present Illness Initial comments: 75-year-old female presents to the emergency department via EMS for evaluation of generalized weakness 1 week. Patient states today she woke up with a headache and had such great fatigue that she was unable to ambulate to the kitchen to properly prepare her meals. Patient also reports decreased appetite and reduced oral intake. Patient states she took Tylenol prior to EMS arrival and therefore has had resolution of her headache discomfort. Patient denies fever, chills, dizziness, chest pain, shortness of breath, difficulty breathing, cough, abdominal pain, nausea, vomiting, diarrhea, constipation, dysuria, or hematuria. - Related Data Home Medications Medication Instructions Recorded Confirmed Ferrous Sulfate [Iron (65 MG 325 mg PO DAILY 02/12/19 08/21/20 Elemental)] Ascorbic Acid [Vitamin C] 500 mg PO DAILY 03/25/20 08/21/20 LFany keith B.lactis 1 tab PO DAILY 03/25/20 08/21/20 [Probiotic] Vitamin B Complex 1 cap PO DAILY 03/25/20 08/21/20 Cholecalciferol [Vitamin D3 (25 50 mcg PO DAILY 04/14/20 08/21/20 Mcg = 1000 Iu)] Amiodarone [Cordarone] 200 mg PO DAILY 04/22/20 08/21/20 Metoprolol Tartrate [Lopressor] 50 mg PO BID 05/04/20 08/21/20 Diane 500 mg PO DAILY 07/10/20 08/21/20 Inulin/Chromium Picolinate [Fiber 3 tab PO DAILY 07/10/20 08/21/20 Gummies Chew] Insulin Glargine,Hum.rec.anlog 22 unit SQ HS 07/19/20 08/21/20 [Lantus Solostar Pen] Enalapril Maleate [Vasotec] 5 mg PO BID 08/17/20 08/21/20 Previous Rx's Medication Instructions Recorded Aspirin 81 mg PO DAILY #30 chew 07/01/19 Apixaban [Eliquis] 5 mg PO BID #60 tab 03/28/20 Potassium Chloride ER [K-Dur 20] 20 meq PO DAILY #90 tab 04/25/20 Albuterol Inhaler [Ventolin Hfa 2 puff INHALATION RT-QID PRN #1 07/20/20 Inhaler] inhaler Furosemide [Lasix] 60 mg PO BID@0900,1600 #60 tab 08/23/20 Spironolactone [Aldactone] 25 mg PO DAILY #30 tab 08/23/20 Allergies Allergy/AdvReac Type Severity Reaction Status Date / Time Corticosteroids Allergy Unknown Unknown Verified 12/05/20 15:29 (Glucocorticoids) egg Allergy Unknown Unknown Verified 12/05/20 15:29 azithromycin [From Zithromax] Allergy Anaphylaxis Verified 12/05/20 15:29 banana Allergy Unknown Verified 12/05/20 15:29 carisoprodol [From Soma] Allergy Unknown Verified 12/05/20 15:29 ciprofloxacin [From Cipro] Allergy Unknown Verified 12/05/20 15:29 cortisone [Cortisone] Allergy Unknown Verified 12/05/20 15:29 cyclobenzaprine HCl Allergy Unknown Verified 12/05/20 15:29 [From Flexeril] latex Allergy Unknown Verified 12/05/20 15:29 Latex, Natural Rubber Allergy Unknown Verified 12/05/20 15:29 levofloxacin [From Levaquin] Allergy Anaphylaxis Verified 12/05/20 15:29 Penicillins Allergy Anaphylaxis Verified 12/05/20 15:29 Review of Systems ROS Statement: Those systems with pertinent positive or pertinent negative responses have been documented in the HPI. ROS Other: All systems not noted in ROS Statement are negative. Past Medical History Past Medical History: Atrial Fibrillation, Coronary Artery Disease (CAD), Chest Pain / Angina, Heart Failure, Diabetes Mellitus, Eye Disorder, Hypertension, Myocardial Infarction ([place]), Osteoarthritis ([place]), Pneumonia, Renal Disease Additional Past Medical History / Comment(s): NIDDM type II, neuropathy bilateral feet, 01-03-14 [place]/cardiac arrest/resp failure/intubation, UTIs, past L eye retinal bleed with surgery. Last Myocardial Infarction Date:: 01-03-14 History of Any Multi-Drug Resistant Organisms: None Reported Past Surgical History: Heart Catheterization, Heart Catheterization With Stent Additional Past Surgical History / Comment(s): Stent RCA 01-07-14, stent LAD 02/14/2019, L retinal bleed with surgery, bilateral cataract removal/lens implants, colonoscopy Past Anesthesia/Blood Transfusion Reactions: No Reported Reaction Date of Last Stent Placement:: 2013 Past Psychological History: No Psychological Hx Reported Smoking Status: Former smoker Past Alcohol Use History: None Reported Past Drug Use History: None Reported - Past Family History Father Family Medical History: Cancer, Diabetes Mellitus Additional Family Medical History / Comment(s): age 70 from lung cancer Mother Family Medical History: COPD Additional Family Medical History / Comment(s): age 83 emphysema General Exam Limitations: no limitations General appearance: alert, in no apparent distress, other (Well-developed, well- nourished female in no acute distress. 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 Absent: respiratory distress, wheezes, rales, rhonchi, stridor Cardiovascular Exam: Present: regular rate, bradycardia, normal heart sounds, other (Reports history of atrial fibrillation) GI/Abdominal exam: Present: soft, normal bowel sounds. Absent: distended, tenderness, guarding, rebound, rigid Extremities exam: Present: tenderness (active wound between the fourth and fifth toes of left foot- patient is seen podiatry for wound care- dressing was changed yesterday and patient wishes for it to remain in place. +1 pedal pulse.), other (Nonpitting dependent lower extremity edema symmetrical bilaterally) Neurological exam: Present: alert, oriented X3 Expanded Patient oriented to: Present: person, place, time Speech: Present: fluid speech Cranial nerves: EOM's Intact: Normal Cerebellar function: Finger to Nose: Normal Motor strength exam: RUE: 5, LUE: 5, RLE: 5, LLE: 5 Eye Response: (4) open spontaneously Motor Response: (6) obeys commands Verbal Response: (5) oriented Psychiatric exam: Present: normal affect, normal mood Skin exam: Present: warm, dry, normal color, other (Healing wound on the great toe of left foot) Course Vital Signs 03/13/21 03/13/21 03/13/21 18:49 20:10 20:14 Temperature 98.1 F Pulse Rate 53 L 51 L 51 L Respiratory 18 20 22 Rate Blood Pressure 118/46 117/46 141/96 O2 Sat by Pulse 97 97 96 Oximetry 03/13/21 21:06 Temperature Pulse Rate 53 L Respiratory 19 Rate Blood Pressure 127/53 O2 Sat by Pulse Oximetry - Reevaluation(s) Reevaluation #1: 03/13/21 21:40 Discussed low hemoglobin with patient. She declines rectal exam stating she never has black stool and she is certain the blood count is low due to frequent nosebleeds. Talked with her about potential blood loss in the GI tract as she is on an anticoagulant, however the patient continues to refuse. Patient was provided with a meal and updated on plan of care. Medical Decision Making - Medical Decision Making 75-year-old female with a past medical history of COPD, CAD, atrial fibrillation, CHF, diabetes, and chronic renal disease who presents to the emergency department for evaluation of fatigue and loss of appetite. States she is too weak to care for herself at home. Upon exam, patient is in no acute distress. She is alert and oriented and able to follow commands appropriately. She is somewhat pale with scattered areas of bruising she attributes to her blood thinning medication. No focal neurological deficits appreciated. Patient denies chest pain, difficulty breathing, and orthopnea. Does have bilateral lower extremity edema with a poorly healing wound on the left foot for which she is seeing podiatry. EKG was obtained and shows sinus bradycardia with a left bundle branch, which is not new for patient. T-wave inversion in lateral leads is noted, and while not present in most recent EKGs, has been seen in previously. Bradycardia is baseline for patient; states her heart rate is typically 50-62. Chest x-ray was obtained and is unremarkable. Laboratory studies were reviewed showing worsening anemia, hemoglobin 7.8 down from 10.5. Patient is taking Eliquis and attributes her current hemoglobin to frequent nosebleeds. Patient refuses rectal exam, but denies any black or bloody stool. Covid test is negative. CMP shows BUN 159, Creatinine 4.00, Potassium 5.6. Urinalysis and urine studies pending. Patient will be admitted to the hospital for further evaluation and treatment. Spoke with Dr. Romero who agrees to accept this admission. Diuretics and ACEI will be held. Nephrology consulted. This patient's care was discussed with my attending Dr. Rodriguez. - Lab Data Result diagrams: 03/13/21 19:09 03/13/21 19:09 Lab Results 03/13/21 03/13/21 03/13/21 Range/Units 19:09 19:09 19:09 WBC 10.1 (3.8-10.6) k/uL RBC 2.57 L (3.80-5.40) m/uL Hgb 7.8 L (11.4-16.0) gm/dL Hct 24.0 L (34.0-46.0) % MCV 93.4 (80.0-100.0) fL MCH 30.2 (25.0-35.0) pg MCHC 32.3 (31.0-37.0) g/dL RDW 13.6 (11.5-15.5) % Plt Count 226 (150-450) k/uL MPV 10.2 Neutrophils % 68 % Lymphocytes % 19 % Monocytes % 7 % Eosinophils % 3 % Basophils % 0 % Neutrophils # 6.9 (1.3-7.7) k/uL Lymphocytes # 2.0 (1.0-4.8) k/uL Monocytes # 0.8 (0-1.0) k/uL Eosinophils # 0.3 (0-0.7) k/uL Basophils # 0.0 (0-0.2) k/uL Hypochromasia Slight PT 11.9 (9.0-12.0) sec INR 1.1 (<1.2) APTT 24.0 (22.0-30.0) sec Sodium 137 (137-145) mmol/L Potassium 5.6 H (3.5-5.1) mmol/L Chloride 103 (98-107) mmol/L Carbon Dioxide 15 L (22-30) mmol/L Anion Gap 19 mmol/L BUN 159 H* (7-17) mg/dL Creatinine 4.00 H (0.52-1.04) mg/dL Est GFR (CKD-EPI)AfAm 12 (>60 ml/min/1.73 sqM) Est GFR (CKD-EPI)NonAf 10 (>60 ml/min/1.73 sqM) Glucose 178 H (74-99) mg/dL Plasma Lactic Acid Jona (0.7-2.0) mmol/L Calcium 9.4 (8.4-10.2) mg/dL Magnesium 2.4 H (1.6-2.3) mg/dL Total Bilirubin 0.4 (0.2-1.3) mg/dL AST 20 (14-36) U/L ALT 11 (4-34) U/L Alkaline Phosphatase 82 (38-126) U/L Troponin I (0.000-0.034) ng/mL NT-Pro-B Natriuret Pep pg/mL Total Protein 6.5 (6.3-8.2) g/dL Albumin 3.7 (3.5-5.0) g/dL Coronavirus (PCR) (Not Detectd) 03/13/21 03/13/21 03/13/21 Range/Units 19:09 19:09 19:09 WBC (3.8-10.6) k/uL RBC (3.80-5.40) m/uL Hgb (11.4-16.0) gm/dL Hct (34.0-46.0) % MCV (80.0-100.0) fL MCH (25.0-35.0) pg MCHC (31.0-37.0) g/dL RDW (11.5-15.5) % Plt Count (150-450) k/uL MPV Neutrophils % % Lymphocytes % % Monocytes % % Eosinophils % % Basophils % % Neutrophils # (1.3-7.7) k/uL Lymphocytes # (1.0-4.8) k/uL Monocytes # (0-1.0) k/uL Eosinophils # (0-0.7) k/uL Basophils # (0-0.2) k/uL Hypochromasia PT (9.0-12.0) sec INR (<1.2) APTT (22.0-30.0) sec Sodium (137-145) mmol/L Potassium (3.5-5.1) mmol/L Chloride (98-107) mmol/L Carbon Dioxide (22-30) mmol/L Anion Gap mmol/L BUN (7-17) mg/dL Creatinine (0.52-1.04) mg/dL Est GFR (CKD-EPI)AfAm (>60 ml/min/1.73 sqM) Est GFR (CKD-EPI)NonAf (>60 ml/min/1.73 sqM) Glucose (74-99) mg/dL Plasma Lactic Acid Jona 1.0 (0.7-2.0) mmol/L Calcium (8.4-10.2) mg/dL Magnesium (1.6-2.3) mg/dL Total Bilirubin (0.2-1.3) mg/dL AST (14-36) U/L ALT (4-34) U/L Alkaline Phosphatase (38-126) U/L Troponin I 0.031 (0.000-0.034) ng/mL NT-Pro-B Natriuret Pep 4060 pg/mL Total Protein (6.3-8.2) g/dL Albumin (3.5-5.0) g/dL Coronavirus (PCR) (Not Detectd) 03/13/21 Range/Units 19:09 WBC (3.8-10.6) k/uL RBC (3.80-5.40) m/uL Hgb (11.4-16.0) gm/dL Hct (34.0-46.0) % MCV (80.0-100.0) fL MCH (25.0-35.0) pg MCHC (31.0-37.0) g/dL RDW (11.5-15.5) % Plt Count (150-450) k/uL MPV Neutrophils % % Lymphocytes % % Monocytes % % Eosinophils % % Basophils % % Neutrophils # (1.3-7.7) k/uL Lymphocytes # (1.0-4.8) k/uL Monocytes # (0-1.0) k/uL Eosinophils # (0-0.7) k/uL Basophils # (0-0.2) k/uL Hypochromasia PT (9.0-12.0) sec INR (<1.2) APTT (22.0-30.0) sec Sodium (137-145) mmol/L Potassium (3.5-5.1) mmol/L Chloride (98-107) mmol/L Carbon Dioxide (22-30) mmol/L Anion Gap mmol/L BUN (7-17) mg/dL Creatinine (0.52-1.04) mg/dL Est GFR (CKD-EPI)AfAm (>60 ml/min/1.73 sqM) Est GFR (CKD-EPI)NonAf (>60 ml/min/1.73 sqM) Glucose (74-99) mg/dL Plasma Lactic Acid Jona (0.7-2.0) mmol/L Calcium (8.4-10.2) mg/dL Magnesium (1.6-2.3) mg/dL Total Bilirubin (0.2-1.3) mg/dL AST (14-36) U/L ALT (4-34) U/L Alkaline Phosphatase (38-126) U/L Troponin I (0.000-0.034) ng/mL NT-Pro-B Natriuret Pep pg/mL Total Protein (6.3-8.2) g/dL Albumin (3.5-5.0) g/dL Coronavirus (PCR) Not Detected (Not Detectd) - EKG Data EKG shows normal: sinus rhythm Rate: bradycardia EKG Comments: EKG was obtained at 1920 and shows sinus bradycardia with a left bundle branch which is not new for patient. Ventricular rate 53, CA interval 208, QRS duration 152, QT/QTC 498/467. Interpretation is abnormal ECG. T-wave inversion in lateral leads is noted, and while not present in most recent EKGs, has been seen in previous ones. - Radiology Data Radiology results: report reviewed, image reviewed two-view chest x-ray was obtained. Report was reviewed in its entirety. Impression per Dr. Liu is normal chest. there is clearing of the pulmonary edema compared to old exam. Disposition Clinical Impression: Acute kidney injury superimposed on CKD, Weakness, Hyperkalemia, Anemia Disposition: ADMITTED IP TO THIS HOSP Condition: Serious Referrals: Last Barrios MD [Primary Care Provider] - 1-2 days Decision Date: 03/13/21 Decision Time: 23:46
[2021-03-13 21:13] LABS: Basophils % (A) 0 %; Eosinophils # (A) 0.3 k/uL (0-0.7); Eosinophils % (A) 3 %; HGB 7.8 gm/dL (11.4-16.0); Hypochromasia Slight; Lymphocytes % (A) 19 %; MCH 30.2 pg (25.0-35.0); MCHC 32.3 g/dL (31.0-37.0); MCV 93.4 fL (80.0-100.0); Mean Platelet Volume 10.2; Monocytes # (A) 0.8 k/uL (0-1.0); Monocytes % (A) 7 %; Neutrophils # (A) 6.9 k/uL (1.3-7.7); Neutrophils % (A) 68 %; Platelet Count 226 k/uL (150-450); RBC 2.57 m/uL (3.80-5.40); RDW 13.6 % (11.5-15.5); WBC 10.1 k/uL (3.8-10.6)
[2021-03-13 21:23] LABS: INR 1.1 (<1.2); Prothrombin Time 11.9 sec (9.0-12.0)
--- NOTE | 2021-03-13 21:32 | XR ---
EXAMINATION TYPE: XR chest 2V DATE OF EXAM: 03/13/2021 COMPARISON: 08/21/2020 HISTORY: Short of breath TECHNIQUE: 2 views FINDINGS: Heart and mediastinum are normal. Lungs are clear. Diaphragm is normal. Bony thorax is norm al. IMPRESSION: Normal chest. There is clearing of the pulmonary edema compared to old exam.
[2021-03-13 22:41] LABS: Albumin 3.7 g/dL (3.5-5.0); Calcium 9.4 mg/dL (8.4-10.2); Magnesium 2.4 mg/dL (1.6-2.3); Potassium 5.6 mmol/L (3.5-5.1); Total Bilirubin 0.4 mg/dL (0.2-1.3); Total Protein 6.5 g/dL (6.3-8.2)
[2021-03-13] MEDS ORDERED: NALOXONE 0.4 MG/ML 1 ML VIAL IV PRN (23:31)
[2021-03-13] MEDS ORDERED: ONDANSETRON 4 MG/2 ML VIAL IVP PRN (23:31)
[2021-03-13] MEDS ORDERED: ALBUTEROL NEBULIZED 2.5 MG/3 ML INHALATION PRN (23:35)
[2021-03-14] MEDS: INSULIN DETEMIR (LEVEMIR) 100 UNIT/ML SYR SQ SCH ×2 (02:09→21:24)
[2021-03-14] MEDS: SODIUM CHLORIDE 0.9% 1,000 ML IV SCH ×2 (02:12→10:19)
[2021-03-14 04:21] LABS: Creatinine,Urine Random 34.3 mg/dL
[2021-03-14 04:40] LABS: Appearance,Urine Clear (Clear); Bacteria,Urine Occasional /hpf; Bilirubin,Urine Negative (Negative); Blood,Urine Small (Negative); Color,Urine Light Yellow; Glucose,Urine (UA) 3+ (Negative); Hyaline Casts,Urine 7 /lpf (0-2); Ketones,Urine Negative (Negative); Leukocyte Esterase,Urine Negative (Negative); Nitrite,Urine Negative (Negative); Protein,Urine Negative (Negative); RBC,Urine 1 /hpf (0-5); Squamous Epithelial Cell,Urine 2 /hpf (0-4); Urobilinogen,Urine <2.0 mg/dL (<2.0); WBC,Urine 1 /hpf (0-5)
[2021-03-14 06:33] LABS: Calcium 8.5 mg/dL (8.4-10.2)
[2021-03-14 06:53] LABS: Basophils % (A) 0 %; Eosinophils # (A) 0.3 k/uL (0-0.7); Eosinophils % (A) 4 %; HCT 24.3 % (34.0-46.0); Hypochromasia Marked; Lymphocytes # (A) 1.7 k/uL (1.0-4.8); Lymphocytes % (A) 19 %; MCHC 28.9 g/dL (31.0-37.0); Mean Platelet Volume 10.1; Monocytes # (A) 1.1 k/uL (0-1.0); Monocytes % (A) 12 %; Neutrophils # (A) 5.4 k/uL (1.3-7.7); Neutrophils % (A) 61 %; Platelet Count 193 k/uL (150-450); RBC 2.42 m/uL (3.80-5.40); RDW 13.3 % (11.5-15.5)
[2021-03-14 06:55] LABS: MCV 100.6 fL (80.0-100.0)
[2021-03-14 08:56] LABS: Glucose,Whole Blood 157 mg/dL (75-99)
--- NOTE | 2021-03-14 09:24 | P.NPCON ---
History of Present Illness - Reason for Consult acute renal failure, chronic renal failure - History of Present Illness Reason for consultation: Acute kidney injury on chronic kidney disease History of present illness: Patient is a 75-year-old female seen in renal consultation for acute kidney injury on chronic kidney disease Patient has chronic kidney disease stage IIIB with baseline creatinine near 1.5 secondary to diabetic kidney disease. Patient presented to the hospital with generalized weakness and inability to ambulate. Patient states she's been feeling weak for the last 1 week and oral intake has been poor. She admits to taking Lasix 60 mg orally twice daily as well as Aldactone at home. No edema. Good urine output. No hematuria. Chest x-ray showed no evidence of fluid overload. Denies use of nonsteroidals. No vomiting or diarrhea. She tested negative for coronavirus. Creatinine on admission was 4.0 and is 3.55 today. She is currently receiving normal saline at 130 mL an hour. Vital signs are stable. HEENT: Head exam is unremarkable. LUNGS: Breath sounds decreased. HEART: Rate and Rhythm are regular. ABDOMEN: Soft, no distention. EXTREMITITES: No edema. Past Medical History Past Medical History: Atrial Fibrillation, Coronary Artery Disease (CAD), Chest Pain / Angina, Heart Failure, Diabetes Mellitus, Eye Disorder, Hypertension, Myocardial Infarction ([place]), Osteoarthritis (OA), Pneumonia, Renal Disease Additional Past Medical History / Comment(s): NIDDM type II, neuropathy bilateral feet, 01-03-14 [place]/cardiac arrest/resp failure/intubation, UTIs, past L eye retinal bleed with surgery. Last Myocardial Infarction Date:: 01-03-14 History of Any Multi-Drug Resistant Organisms: None Reported Past Surgical History: Heart Catheterization, Heart Catheterization With Stent Additional Past Surgical History / Comment(s): Stent RCA 01-07-14, stent LAD 02/14/2019, L retinal bleed with surgery, bilateral cataract removal/lens implants, colonoscopy Past Anesthesia/Blood Transfusion Reactions: No Reported Reaction Date of Last Stent Placement:: 2013 Past Psychological History: No Psychological Hx Reported Smoking Status: Former smoker Past Alcohol Use History: None Reported Past Drug Use History: None Reported - Past Family History Father Family Medical History: Cancer, Diabetes Mellitus Additional Family Medical History / Comment(s): age 70 from lung cancer Mother Family Medical History: COPD Additional Family Medical History / Comment(s): age 83 emphysema Medications and Allergies Home Medications Medication Instructions Recorded Confirmed Type Aspirin 81 mg PO DAILY #30 chew 07/01/19 03/14/21 Rx Apixaban [Eliquis] 5 mg PO BID #60 tab 03/28/20 03/14/21 Rx Cholecalciferol [Vitamin D3 (25 50 mcg PO DAILY 04/14/20 03/14/21 History Mcg = 1000 Iu)] Metoprolol Tartrate [Lopressor] 50 mg PO BID 05/04/20 03/14/21 History Insulin Glargine,Hum.rec.anlog 22 unit SQ HS 07/19/20 03/14/21 History [Lantus Solostar Pen] Enalapril Maleate [Vasotec] 5 mg PO BID 08/17/20 03/14/21 History Furosemide [Lasix] 60 mg PO BID@0900,1600 #60 tab 08/23/20 03/14/21 Rx Spironolactone [Aldactone] 25 mg PO DAILY #30 tab 08/23/20 03/14/21 Rx Brimonidine Tartrate/Timolol 1 drop LEFT EYE TID 03/14/21 03/14/21 History [Combigan 0.2%-0.5% Eye Drops] Dorzolamide 2% [Trusopt 2%] 1 drop LEFT EYE TID 03/14/21 03/14/21 History Doxycycline Hyclate 100 mg PO BID 03/14/21 03/14/21 History Latanoprost/Pf [Latanoprost 0.005% 1 drop LEFT EYE QAM 03/14/21 03/14/21 History Eye Drop] Allergies Allergy/AdvReac Type Severity Reaction Status Date / Time Corticosteroids Allergy Unknown Unknown Verified 03/14/21 06:40 (Glucocorticoids) egg Allergy Unknown Unknown Verified 03/14/21 06:40 azithromycin [From Zithromax] Allergy Anaphylaxis Verified 03/14/21 06:40 banana Allergy Unknown Verified 03/14/21 06:40 carisoprodol [From Soma] Allergy Unknown Verified 03/14/21 06:40 ciprofloxacin [From Cipro] Allergy Unknown Verified 03/14/21 06:40 cortisone [Cortisone] Allergy Unknown Verified 03/14/21 06:40 cyclobenzaprine HCl Allergy Unknown Verified 03/14/21 06:40 [From Flexeril] latex Allergy Unknown Verified 03/14/21 06:40 Latex, Natural Rubber Allergy Unknown Verified 03/14/21 06:40 levofloxacin [From Levaquin] Allergy Anaphylaxis Verified 03/14/21 06:40 Penicillins Allergy Anaphylaxis Verified 03/14/21 06:40 Physical Exam Vitals: Vital Signs Temp Pulse Pulse Resp BP BP Pulse Ox 03/14/21 08:59 98 F 63 17 113/86 100 03/14/21 08:45 98 F 64 17 109/53 100 03/14/21 02:52 63 16 113/86 96 03/14/21 02:09 58 L 20 121/43 97 03/13/21 21:06 53 L 19 127/53 03/13/21 20:14 51 L 22 141/96 96 03/13/21 20:10 51 L 20 117/46 97 03/13/21 18:49 98.1 F 53 L 18 118/46 97 Intake and Output 03/13/21 03/14/21 03/14/21 22:59 06:59 14:59 Other: Weight 81.647 kg Results - Lab Results Most recent lab results Calcium 8.5 mg/dL (8.4-10.2) 03/14/21 05:37 Phosphorus 7.0 mg/dL (2.5-4.5) H 03/14/21 05:37 Magnesium 2.4 mg/dL (1.6-2.3) H 03/13/21 19:09 03/14/21 05:37 03/14/21 05:37 Assessment and Plan Plan: Assessment: 1. Acute kidney injury mostly prerenal secondary to hypovolemia from poor intake and diuresis. Creatinine 4 on admission and is 3.55 today. 2. Chronic kidney disease stage IIIB secondary to diabetic kidney disease with baseline creatinine near 1.5. 3. Diabetes mellitus. 4. Metabolic acidosis secondary to acute kidney injury. 5. Chronic diastolic CHF and mild to moderate mitral and tricuspid regurgitation with severe pulmonary hypertension. 6. Hyperkalemia secondary to acute kidney injury, acidosis and spironolactone. Better. 6. Elevated BUN secondary to hypovolemia. Questionable GI bleed. 7. Anemia. Rule out iron deficiency. Plan: Change IV fluids to isotonic bicarbonate drip to be run at 100 mL an hour. Check iron studies. Check stool for occult blood. Defer blood transfusion to primary team. Check renal ultrasound. Avoid nephrotoxins. Continue to hold diuretics. Repeat labs in the morning. Thank you for the consultation. I will continue to follow the patient with you during her hospital stay.
--- NOTE | 2021-03-14 10:37 | US ---
EXAMINATION TYPE: US kidneys/renal and bladder DATE OF EXAM: 03/14/2021 COMPARISON: NONE CLINICAL HISTORY: vicente. Abnormal labs EXAM MEASUREMENTS: Right Kidney: 10.3 x 4.5 x 5.4 cm Left Kidney: 9.2 x 4.3 x 4.6 cm Right Kidney: wnl, cyst lateral= 0.8 x 0.9 x 1.1 cm Left Kidney: Difficult to visualize due to overlying bowel gas, no evidence of hydro Bladder: wnl Bilateral Jets seen: No Increased echogenicity to the kidneys bilaterally. IMPRESSION: Limited exam without evidence for hydronephrosis. There is no evidence for hydronephrosis at this point in time. No nephrolithiasis is seen. No placido s are identified. The urinary bladder is anechoic. Increased echogenicity kidneys suggesting medical renal disease.
[2021-03-14] MEDS: APIXABAN 5 MG TAB PO SCH ×2 (10:43→12:23)
[2021-03-14] MEDS: DEXTROSE 5% IN WATER 1,000 ML with SODIUM BICARB (1 MEQ/ML) 150 ML IV SCH ×2 (10:44→21:59)
[2021-03-14] MEDS ORDERED: FUROSEMIDE 10 MG/ML 2 ML VIAL IV ONE (11:15)
[2021-03-14 12:40] LABS: Glucose,Whole Blood 224 mg/dL (75-99)
[2021-03-14] MEDS: ACETAMINOPHEN TAB 325 MG TAB PO PRN ×2 (14:48→21:26)
[2021-03-14 17:05] LABS: Glucose,Whole Blood 176 mg/dL (75-99)
--- NOTE | 2021-03-14 17:31 | HP ---
HISTORY AND PHYSICAL I am covering for Dr. Barrios. DATE OF SERVICE: 03/14/2021. CHIEF COMPLAINTS: Headache and weakness. HISTORY OF PRESENT ILLNESS: This 75-year-old woman with a past medical history of atrial fibrillation, history of CAD, history of CHF, history of diabetes mellitus, hypertension, hyperlipidemia, pneumonia, being followed by Dr. Barrios in the outpatient setting, was complaining of generalized weakness for the last one week. The patient was also complaining of severe headache and fatigue. The patient also had some melenic stools. The patient came to [facility]. Patient took some Tylenol. The patient is admitted for further evaluation and treatment. Initial hemoglobin was found to be 7.8 and then 7. The patient also had BUN and creatinine elevated up to 4 and 3.55, respectively. The baseline was around 1.4. There is no history of any fever, rigors or chills. No history of headache, loss of consciousness, seizures at this time. COVID-19 is negative at this time. PAST MEDICAL HISTORY: History of atrial fibrillation, history of CAD, history of CHF, diabetes mellitus, type 2, history of DJD, history of hypertension, history of myocardial infarction. HOME MEDICATIONS: Doxycycline, latanoprost, dorzolamide, Lantus. Other medication and doses are reviewed. ALLERGIES: GLUCOCORTICOIDS, EGG, AZITHROMYCIN, BANANA, SOMA, CIPRO, CORTISONE, FLEXERIL, LATEX, NATURAL RUBBER, LEVAQUIN, PENICILLIN. FAMILY HISTORY: History of diabetes mellitus and cancer in the family. Lung cancer in the family. SOCIAL HISTORY: Previous history of smoking. No current smoking or alcohol intake. REVIEW OF SYSTEMS: ENT: Diminished hearing. Diminished vision. CARDIOVASCULAR SYSTEM: As mentioned earlier. RESPIRATORY SYSTEM: As mentioned earlier. GI: As mentioned earlier. : As mentioned earlier. NERVOUS SYSTEM: No numbness, weakness. ALLERGY/IMMUNOLOGY: No asthma or hay fever. MUSCULOSKELETAL: As mentioned earlier. HEMATOLOGY/ONCOLOGY: As mentioned earlier. ENDOCRINE: As mentioned earlier. CONSTITUTIONAL: As mentioned earlier. DERMATOLOGY: Negative. RHEUMATOLOGY: Negative. PSYCHIATRY: As mentioned earlier. PHYSICAL EXAMINATION: Patient alert and oriented x3. Pulse 64, blood pressure 122/74, respirations 16, temperature 97.6, pulse ox 100% on room air. HEENT: Conjunctivae pale. Oral mucosa pale. NECK: No jugular venous distention. No carotid bruit. No lymph node enlargement. CARDIOVASCULAR: S1, S2 muffled. RESPIRATION: Breath sounds diminished at the bases. Scattered rhonchi. ABDOMEN: Soft, obese, non-tender. No mass palpable. LEGS: No edema. No swelling. NERVOUS SYSTEM: Higher functions as mentioned earlier. Moves all 4 limbs. No focal motor or sensory deficit. LYMPHATICS: No lymph node palpable in neck, axillae or groin. SKIN: No ulcer, rash, bleeding. JOINTS: No active deforming arthropathy. LABS: WBC 10.2, hemoglobin 7.8 and 7, sodium 137, potassium 5.6 and BUN is and 149 and 3.55 at this time. Glucose is 353 and 157. UA noted. ASSESSMENT: 1. Anemia, possibly acute on chronic blood-loss anemia from GI blood loss. Rule out peptic ulcer disease. 2. Acute renal failure, acute tubular necrosis, with prerenal factors. 3. Metabolic acidosis. 4. Hyperkalemia. 5. Diabetes mellitus, type 2, with hyperglycemia, uncontrolled. 6. Increased mean corpuscular volume. 7. History of atrial fibrillation. 8. History of coronary artery disease. 9. History of congestive heart failure. 10.History of diabetes mellitus, type 2. 11.Hypertension. 12.Myocardial infarction. 13.History of degenerative joint disease. 14.History of pneumonia. 15.History of cardiac arrest. 16.History of urinary tract infections. 17.History of coronary artery disease, stent. 18.FULL CODE. 19.Obesity with body mass index of 35.2. RECOMMENDATIONS AND DISCUSSION: In this 75-year-old gentleman who presented with multiple complex medical issues, we will monitor the patient closely, continue the current medications, continue with symptomatic treatment. Will transfuse one unit and Lasix 20 after the transfusion. Monitor hemoglobin closely. Gastroenterology consultation and surgical consultation for possible endoscopies and also nephrology evaluation. Repeat labs will be ordered. Prognosis guarded because of multiple complex medical issues. Further recommendations to follow. MMODL / IJN: [id number] / MTDD
[2021-03-14 17:34] LABS: % Iron Saturation 11.58 (12.00-45.00)
[2021-03-14] MEDS: INSULIN ASPART (NovoLOG) 100 UNIT/ML VIAL SQ SCH ×2 (17:35→21:25)
[2021-03-14 19:57] LABS: Glucose,Whole Blood 252 mg/dL (75-99)
[2021-03-14 20:20] LABS: Potassium,Urine Random 21.1 mmol/L (25.0-125.0)
[2021-03-14] MEDS: METOPROLOL TARTRATE 50 MG TAB PO SCH (21:24)
[2021-03-14] MEDS: LATANOPROST 0.005% OPHTH DROPS 2.5 ML BTL LEFT EYE SCH (21:25)
[2021-03-14] MEDS: BRIMONIDINE TARTRATE 0.2% DROPS 5 ML BTL LEFT EYE SCH (22:27)
[2021-03-14] MEDS: DORZOLAMIDE HCL 2% DROPS 10 ML BTL LEFT EYE SCH (22:27)
[2021-03-14] MEDS: TIMOLOL 0.5% OPHTH DROPS 5 ML BTL LEFT EYE SCH (22:27)
[2021-03-15 07:16] LABS: Glucose,Whole Blood 98 mg/dL (75-99)
[2021-03-15] MEDS: INSULIN ASPART (NovoLOG) 100 UNIT/ML VIAL SQ SCH ×4 (07:27→20:48)
[2021-03-15] MEDS: CHOLECALCIFEROL 25 MCG (1000 IU) TABLET PO SCH (07:53)
[2021-03-15] MEDS: BRIMONIDINE TARTRATE 0.2% DROPS 5 ML BTL LEFT EYE SCH ×3 (07:54→21:59)
[2021-03-15] MEDS: DORZOLAMIDE HCL 2% DROPS 10 ML BTL LEFT EYE SCH ×3 (07:55→22:06)
[2021-03-15] MEDS: TIMOLOL 0.5% OPHTH DROPS 5 ML BTL LEFT EYE SCH ×3 (07:55→22:00)
[2021-03-15] MEDS: METOPROLOL TARTRATE 50 MG TAB PO SCH ×2 (07:58→20:47)
[2021-03-15] MEDS: DEXTROSE 5% IN WATER 1,000 ML with SODIUM BICARB (1 MEQ/ML) 150 ML IV SCH ×2 (09:30→20:48)
--- NOTE | 2021-03-15 09:30 | P.PN ---
Subjective Patient is seen in follow-up for acute kidney injury on chronic kidney disease. Oral intake improving. No vomiting or diarrhea. Receiving IV fluids. Good urine output. Vital signs are stable. General: The patient appeared well nourished and normally developed. HEENT: Head exam is unremarkable. LUNGS: Breath sounds decreased. HEART: Rate and Rhythm are regular. ABDOMEN: Soft, no distention. EXTREMITITES: No edema. Objective - Vital Signs Vital signs: Vital Signs Temp 98.2 F 03/15/21 05:00 Pulse 63 03/15/21 07:57 Resp 18 03/15/21 05:00 BP 134/50 03/15/21 07:57 Pulse Ox 99 03/15/21 05:00 Intake & Output 03/14/21 03/15/21 03/15/21 18:59 06:59 18:59 Intake Total 822 565 Balance 822 565 Weight 81.647 kg Intake: Oral 540 565 Blood Product 282 Rc Pheresis 2 As3 Unit 282 [id number] Other: Voiding Method Bedside Commode Bedpan Bedpan Bedpan Diaper Diaper Diaper # Voids 1 2 # Bowel Movements 1 - Labs CBC & Chem 7: 03/14/21 05:37 03/14/21 05:37 Labs: Abnormal Lab Results - Last 24 Hours (Table) 03/14/21 03/14/21 03/14/21 Range/Units 02:58 05:37 05:37 POC Glucose (mg/dL) (75-99) mg/dL Osmolality 353 H* (280-301) mosm/kg Iron 32 L (50-170) ug/dL % Saturation 11.58 L (12.00-45.00) Transferrin 198.0 L (204.0-354.0) mg/dL Ur Random Potassium 21.1 L (25.0-125.0) mmol/L Crossmatch 03/14/21 03/14/21 03/14/21 Range/Units 11:40 12:31 17:01 POC Glucose (mg/dL) 224 H 176 H (75-99) mg/dL Osmolality (280-301) mosm/kg Iron (50-170) ug/dL % Saturation (12.00-45.00) Transferrin (204.0-354.0) mg/dL Ur Random Potassium (25.0-125.0) mmol/L Crossmatch See Detail 03/14/21 Range/Units 19:49 POC Glucose (mg/dL) 252 H (75-99) mg/dL Osmolality (280-301) mosm/kg Iron (50-170) ug/dL % Saturation (12.00-45.00) Transferrin (204.0-354.0) mg/dL Ur Random Potassium (25.0-125.0) mmol/L Crossmatch Assessment and Plan Plan: Assessment: 1. Acute kidney injury mostly prerenal secondary to hypovolemia from poor intake and diuresis. Creatinine 4 on admission and 3.55 yesterday. Morning labs pending. No hydronephrosis noted on kidney ultrasound. 2. Chronic kidney disease stage IIIB secondary to diabetic kidney disease with baseline creatinine near 1.5. 3. Diabetes mellitus. 4. Metabolic acidosis secondary to acute kidney injury. Maintain on bicarb drip. 5. Chronic diastolic CHF and mild to moderate mitral and tricuspid regurgitation with severe pulmonary hypertension. 6. Hyperkalemia secondary to acute kidney injury, acidosis and spironolactone. Better. 6. Elevated BUN secondary to hypovolemia. Questionable GI bleed. 7. Anemia. Iron deficiency noted. Concern for GI bleed. GI and surgery consulted. Status post blood transfusion. Plan: Maintain bicarb drip. Add IV iron. Avoid nephrotoxins. Continue to hold diuretics. Follow-up morning labs
[2021-03-15] MEDS: SODIUM FERRIC GLUCONAT-SUCROSE 125 MG in SODIUM CHLORIDE 0.9% 100 ML IVPB SCH (10:28)
[2021-03-15 11:32] LABS: African American GFR (CKD) 19.4 (60.0-200.0); Anion Gap 14.6 mmol/L (10.00-18.00); BUN/Creat Ratio 35.85 Ratio (12.00-20.00); Calcium 8.7 mg/dL (8.7-10.3); Carbon Dioxide 25.1 mmol/L (20.0-27.5); Magnesium 2.2 mg/dL (1.5-2.4); Non-African American GFR(CKD) 16.7 (60.0-200.0)
[2021-03-15 11:52] LABS: Glucose,Whole Blood 159 mg/dL (75-99)
--- NOTE | 2021-03-15 12:01 | P.GSCN ---
History of Present Illness Consult date: 03/15/21 Reason for Consult: Anemia History of present illness: This a 75-year-old female who is minimal hospital for anemia. Patient states that she takes liquids. She states that last week she had several nosebleeds. She denies any rectal bleeding. Past Medical History Past Medical History: Atrial Fibrillation, Coronary Artery Disease (CAD), Chest Pain / Angina, Heart Failure, Diabetes Mellitus, Eye Disorder, Hypertension, Myocardial Infarction (GA), Osteoarthritis (OA), Pneumonia, Renal Disease Additional Past Medical History / Comment(s): NIDDM type II, neuropathy bilateral feet, 01-03-14 GA/cardiac arrest/resp failure/intubation, UTIs, past L eye retinal bleed with surgery. Last Myocardial Infarction Date:: 01-03-14 History of Any Multi-Drug Resistant Organisms: None Reported Past Surgical History: Heart Catheterization, Heart Catheterization With Stent Additional Past Surgical History / Comment(s): Stent RCA 01-07-14, stent LAD 02/14/2019, L retinal bleed with surgery, bilateral cataract removal/lens implants, colonoscopy Past Anesthesia/Blood Transfusion Reactions: No Reported Reaction Date of Last Stent Placement:: 2013 Smoking Status: Former smoker - Past Family History Father Family Medical History: Cancer, Diabetes Mellitus Additional Family Medical History / Comment(s): age 70 from lung cancer Mother Family Medical History: COPD Additional Family Medical History / Comment(s): age 83 emphysema Medications and Allergies Home Medications Medication Instructions Recorded Confirmed Type Aspirin 81 mg PO DAILY #30 chew 07/01/19 03/14/21 Rx Apixaban [Eliquis] 5 mg PO BID #60 tab 03/28/20 03/14/21 Rx Cholecalciferol [Vitamin D3 (25 50 mcg PO DAILY 04/14/20 03/14/21 History Mcg = 1000 Iu)] Metoprolol Tartrate [Lopressor] 50 mg PO BID 05/04/20 03/14/21 History Insulin Glargine,Hum.rec.anlog 22 unit SQ HS 07/19/20 03/14/21 History [Lantus Solostar Pen] Enalapril Maleate [Vasotec] 5 mg PO BID 08/17/20 03/14/21 History Furosemide [Lasix] 60 mg PO BID@0900,1600 #60 tab 08/23/20 03/14/21 Rx Spironolactone [Aldactone] 25 mg PO DAILY #30 tab 08/23/20 03/14/21 Rx Brimonidine Tartrate/Timolol 1 drop LEFT EYE TID 03/14/21 03/14/21 History [Combigan 0.2%-0.5% Eye Drops] Dorzolamide 2% [Trusopt 2%] 1 drop LEFT EYE TID 03/14/21 03/14/21 History Doxycycline Hyclate 100 mg PO BID 03/14/21 03/14/21 History Latanoprost/Pf [Latanoprost 0.005% 1 drop LEFT EYE QAM 03/14/21 03/14/21 History Eye Drop] Allergies Allergy/AdvReac Type Severity Reaction Status Date / Time Corticosteroids Allergy Unknown Unknown Verified 03/14/21 06:40 (Glucocorticoids) egg Allergy Unknown Unknown Verified 03/14/21 06:40 azithromycin [From Zithromax] Allergy Anaphylaxis Verified 03/14/21 06:40 banana Allergy Unknown Verified 03/14/21 06:40 carisoprodol [From Soma] Allergy Unknown Verified 03/14/21 06:40 ciprofloxacin [From Cipro] Allergy Unknown Verified 03/14/21 06:40 cortisone [Cortisone] Allergy Unknown Verified 03/14/21 06:40 cyclobenzaprine HCl Allergy Unknown Verified 03/14/21 06:40 [From Flexeril] latex Allergy Unknown Verified 03/14/21 06:40 Latex, Natural Rubber Allergy Unknown Verified 03/14/21 06:40 levofloxacin [From Levaquin] Allergy Anaphylaxis Verified 03/14/21 06:40 Penicillins Allergy Anaphylaxis Verified 03/14/21 06:40 Surgical - Exam Vital Signs Temp Pulse Resp BP Pulse Ox 98.1 F 53 L 18 118/46 97 03/13/21 18:49 03/13/21 18:49 03/13/21 18:49 03/13/21 18:49 03/13/21 18:49 - General well developed, well nourished, no distress - Eyes PERRL - ENT normal pinna - Neck no masses - Respiratory normal expansion - Cardiovascular Rhythm: regular - Abdomen Abdomen: soft, non tender Results - Labs 03/14/21 05:37 03/15/21 06:52 Abnormal Lab Results - Last 24 Hours (Table) 03/14/21 03/14/21 03/14/21 Range/Units 02:58 05:37 11:40 BUN (9.0-27.0) mg/dL Creatinine (0.6-1.5) mg/dL Est GFR (CKD-EPI)AfAm (60.0-200.0) Est GFR (CKD-EPI)NonAf (60.0-200.0) BUN/Creatinine Ratio (12.00-20.00) Ratio POC Glucose (mg/dL) (75-99) mg/dL Iron 32 L (50-170) ug/dL % Saturation 11.58 L (12.00-45.00) Transferrin 198.0 L (204.0-354.0) mg/dL Ur Random Potassium 21.1 L (25.0-125.0) mmol/L Crossmatch See Detail 03/14/21 03/14/21 03/14/21 Range/Units 12:31 17:01 19:49 BUN (9.0-27.0) mg/dL Creatinine (0.6-1.5) mg/dL Est GFR (CKD-EPI)AfAm (60.0-200.0) Est GFR (CKD-EPI)NonAf (60.0-200.0) BUN/Creatinine Ratio (12.00-20.00) Ratio POC Glucose (mg/dL) 224 H 176 H 252 H (75-99) mg/dL Iron (50-170) ug/dL % Saturation (12.00-45.00) Transferrin (204.0-354.0) mg/dL Ur Random Potassium (25.0-125.0) mmol/L Crossmatch 03/15/21 03/15/21 Range/Units 06:52 11:52 BUN 95.0 H (9.0-27.0) mg/dL Creatinine 2.7 H (0.6-1.5) mg/dL Est GFR (CKD-EPI)AfAm 19.4 L (60.0-200.0) Est GFR (CKD-EPI)NonAf 16.7 L (60.0-200.0) BUN/Creatinine Ratio 35.85 H (12.00-20.00) Ratio POC Glucose (mg/dL) 159 H (75-99) mg/dL Iron (50-170) ug/dL % Saturation (12.00-45.00) Transferrin (204.0-354.0) mg/dL Ur Random Potassium (25.0-125.0) mmol/L Crossmatch Diabetes panel 03/15/21 Range/Units 06:52 Sodium 145 (135-145) mmol/L Potassium 4.0 (3.5-5.5) mmol/L Chloride 106 (96-109) mmol/L Carbon Dioxide 25.1 (20.0-27.5) mmol/L BUN 95.0 H (9.0-27.0) mg/dL Creatinine 2.7 H (0.6-1.5) mg/dL Glucose 93 (70-110) mg/dL Calcium 8.7 (8.7-10.3) mg/dL Calcium panel 03/15/21 Range/Units 06:52 Calcium 8.7 (8.7-10.3) mg/dL Pituitary panel 03/15/21 Range/Units 06:52 Sodium 145 (135-145) mmol/L Potassium 4.0 (3.5-5.5) mmol/L Chloride 106 (96-109) mmol/L Carbon Dioxide 25.1 (20.0-27.5) mmol/L BUN 95.0 H (9.0-27.0) mg/dL Creatinine 2.7 H (0.6-1.5) mg/dL Glucose 93 (70-110) mg/dL Calcium 8.7 (8.7-10.3) mg/dL Adrenal panel 03/15/21 Range/Units 06:52 Sodium 145 (135-145) mmol/L Potassium 4.0 (3.5-5.5) mmol/L Chloride 106 (96-109) mmol/L Carbon Dioxide 25.1 (20.0-27.5) mmol/L BUN 95.0 H (9.0-27.0) mg/dL Creatinine 2.7 H (0.6-1.5) mg/dL Glucose 93 (70-110) mg/dL Calcium 8.7 (8.7-10.3) mg/dL Assessment and Plan Assessment: Anemia Request History of epistaxis. Patient be observed. If she shows any signs of GI bleed we will perform upper and lower endoscopy. Most likely her anemia is related to her recent epistaxis nosebleeds.
--- NOTE | 2021-03-15 14:14 | CONS ---
CONSULTATION CHIEF COMPLAINT: Headaches, weakness and not feeling well. HISTORY OF PRESENT ILLNESS: Vicky is a 75-year-old lady with history of coronary artery disease status post prior angioplasty, hypertension, diabetes, dyslipidemia and paroxysmal atrial fibrillation, who is admitted to the hospital with symptoms of fatigue, tiredness and simply not able to get around. She was found to have melanotic stools, came to hospital where she was found to be in new onset renal failure with severe anemia. She is currently receiving iron and her kidney functions have gotten slightly better. She is free of chest pain, difficulty in breathing or leg edema. Her symptoms are probably related to the anemia and the renal failure. We have been asked to see her because of the anticoagulant that she is on for her atrial fibrillation. An EKG shows sinus bradycardia with left bundle branch block. I am going to stop the Eliquis at this time and resume it after she is discharged home when she is stable and the bleeding is no longer a concern. The acute deterioration of her renal functions are probably related to volume depletion, and hopefully will get better. Her BUN today is 95. That has come down from 159 on the initial admission and creatinine was 4 on admission and has come down to 2.7. The renal insufficiency is probably due to a combination of intravascular volume depletion, and GI bleed. PAST MEDICAL HISTORY: Significant for coronary artery disease status post angioplasty, cardiomyopathy, congestive heart failure and paroxysmal atrial fibrillation. MEDICATIONS: Medications at home included: Aspirin, Eliquis, Vasotec 5 b.i.d., Lasix 60 b.i.d., insulin, Lopressor 50 b.i.d., Aldactone 25 daily. ALLERGIES: SHE HAS MULTIPLE DRUG ALLERGIES, THEY ARE CHARTED AND I REVIEWED THEM. FAMILY HISTORY: Negative for premature coronary artery disease. SOCIAL HISTORY: Negative for current smoking, EtOH abuse or drug abuse. REVIEW OF SYSTEMS: HEENT is unremarkable. CARDIAC as described above. RESPIRATORY as described above. GI significant for possible GI bleed. GENITOURINARY significant for renal failure. PSYCHOSOCIAL negative. ENDOCRINE negative. HEMATOLOGICAL significant for anemia. CONSTITUTIONAL significant for fatigue and tiredness. MUSCULOSKELETAL significant for musculoskeletal pain. Rest of the system review is not relevant. EXAM: Comfortable at rest. Vital signs are stable. There is no jugular venous distention. Carotid upstroke is normal. There is no bruit. Chest exam reveals diminished air entry at the bases. I do not hear any crackles or rhonchi. Heart exam reveals first and second heart sounds and a systolic murmur at the apex. Abdomen is soft. Exam of extremities reveals mild edema. Peripheral pulses are felt. LABS: Are as described above. Hemoglobin is 7. ASSESSMENT: 1. Acute onset renal failure. 2. Severe symptomatic anemia secondary to blood loss. 3. Paroxysmal atrial fibrillation. 4. History of congestive heart failure. 5. Coronary artery disease. PLAN: 1. I am going to stop the aspirin and Eliquis at this time. 2. Her renal failure is probably due to a combination of intravascular volume depletion, over-diuresis and GI bleed and I anticipate it getting better. 3. We will resume the anticoagulants in the outpatient set up after making sure that the bleeding issues have resolved. MMODL / IJN: [id number] /
[2021-03-15 17:33] LABS: Glucose,Whole Blood 255 mg/dL (75-99)
[2021-03-15] MEDS: AMIODARONE 100 MG TAB PO SCH (17:47)
--- NOTE | 2021-03-15 18:14 | PN ---
PROGRESS NOTE I am covering for Dr. Barrios. DATE OF SERVICE: 03/15/2021 This 75-year-old woman who was admitted with anemia also had acute blood loss anemia. The patient also had renal failure and Dr. Evans has seen the patient and recommended upper and lower endoscopy in case of bleeding. Patient has history of epistaxis. No chest pain. No palpitations. No fever. PHYSICAL EXAMINATION: Pulse 64, blood pressure 104/67, respiration 18, temperature 98.2, pulse ox 93% on room air. HEENT: Conjunctivae normal. Neck: No JVD. Cardiovascular: S1, S2 muffled. Respirations: Breath sounds diminished in the bases. No rhonchi. Abdomen: Soft, Nontender. Nervous system: No focal deficits. LAB: Hemoglobin is 7 yesterday and creatinine is 2.7. ASSESSMENT: 1. Anemia, possibly from epistaxis, rule out gastrointestinal blood loss anemia and peptic ulcer disease. 2. Acute renal failure with acute tubular necrosis, prerenal factors. 3. Metabolic acidosis. 4. Hyperkalemia. 5. Diabetes type 2, hyperglycemia uncontrolled. 6. Increased MCV. 7. History of atrial fibrillation. 8. History of coronary artery disease. 9. History of congestive heart failure. 10.Diabetes mellitus, type 2. 11.Hypertension. 12.History of myocardial infarction. 13.History of degenerative joint disease. 14.History of pneumonia. 15.History of cardiac arrest. 16.Urinary tract infection. 17.History of coronary artery disease/stent. 18.Obesity with body mass of 35.6. 19.FULL CODE. RECOMMENDATIONS AND DISCUSSION: Recommend to continue current medications, management and symptomatic treatment. Repeat labs. Hemoglobin less than 7. We will transfuse the patient. Otherwise continue to monitor. Prognosis guarded and closely follow with surgery and Nephrology. Further recommendations to follow. MMODL / IJN: [id number] /
[2021-03-15 19:21] LABS: Basophils % (A) 0 %; Eosinophils # (A) 0.2 k/uL (0-0.7); Eosinophils % (A) 3 %; HCT 25.7 % (34.0-46.0); HGB 8.3 gm/dL (11.4-16.0); Hypochromasia Moderate; Lymphocytes # (A) 1.4 k/uL (1.0-4.8); Lymphocytes % (A) 20 %; MCH 30.2 pg (25.0-35.0); MCHC 32.1 g/dL (31.0-37.0); Mean Platelet Volume 10.1; Monocytes # (A) 0.9 k/uL (0-1.0); Monocytes % (A) 12 %; Neutrophils # (A) 4.5 k/uL (1.3-7.7); Neutrophils % (A) 63 %; Platelet Count 151 k/uL (150-450); RBC 2.74 m/uL (3.80-5.40); RDW 13.3 % (11.5-15.5); WBC 7.1 k/uL (3.8-10.6)
[2021-03-15 19:23] LABS: MCV 94.1 fL (80.0-100.0)
[2021-03-15 19:58] LABS: Glucose,Whole Blood 272 mg/dL (75-99)
[2021-03-15] MEDS: INSULIN DETEMIR (LEVEMIR) 100 UNIT/ML SYR SQ SCH (20:47)
[2021-03-15] MEDS: LATANOPROST 0.005% OPHTH DROPS 2.5 ML BTL LEFT EYE SCH (20:48)
[2021-03-16] MEDS: ACETAMINOPHEN TAB 325 MG TAB PO PRN ×2 (01:14→20:28)
[2021-03-16 07:12] LABS: Glucose,Whole Blood 70 mg/dL (75-99)
[2021-03-16] MEDS: INSULIN ASPART (NovoLOG) 100 UNIT/ML VIAL SQ SCH ×4 (07:40→20:31)
[2021-03-16] MEDS: AMIODARONE 100 MG TAB PO SCH (08:50)
[2021-03-16] MEDS: CHOLECALCIFEROL 25 MCG (1000 IU) TABLET PO SCH (08:50)
[2021-03-16] MEDS: DORZOLAMIDE HCL 2% DROPS 10 ML BTL LEFT EYE SCH ×3 (08:51→20:29)
[2021-03-16] MEDS: SODIUM CHLORIDE 0.9% 1,000 ML IV SCH (08:51)
[2021-03-16] MEDS: SODIUM FERRIC GLUCONAT-SUCROSE 125 MG in SODIUM CHLORIDE 0.9% 100 ML IVPB SCH (08:53)
[2021-03-16] MEDS: TIMOLOL 0.5% OPHTH DROPS 5 ML BTL LEFT EYE SCH ×3 (09:18→20:30)
[2021-03-16] MEDS: BRIMONIDINE TARTRATE 0.2% DROPS 5 ML BTL LEFT EYE SCH ×3 (09:18→20:30)
--- NOTE | 2021-03-16 10:39 | P.PN ---
Subjective Patient is seen in follow-up for acute kidney injury on chronic kidney disease. Renal function improving. Oral intake improved. No vomiting or diarrhea. Receiving IV fluids. Good urine output. Vital signs are stable. General: The patient appeared well nourished and normally developed. HEENT: Head exam is unremarkable. LUNGS: Breath sounds decreased. HEART: Rate and Rhythm are regular. ABDOMEN: Soft, no distention. EXTREMITITES: No edema. Objective - Vital Signs Vital signs: Vital Signs Temp 98.2 F 03/16/21 05:00 Pulse 58 L 03/16/21 08:40 Resp 18 03/16/21 05:00 BP 148/62 03/16/21 08:40 Pulse Ox 98 03/16/21 05:00 Intake & Output 03/15/21 03/16/21 03/16/21 18:59 06:59 18:59 Intake Total 940 1180 Output Total 800 Balance 140 1180 Intake: Intake, IV Titration 940 540 Amount Dextrose 5% in Water 1, 840 540 000 ml @ 70 mls/hr IV . [id number] GARRY with Sodium Bicarb (1 Meq/ml) 150 ml Rx#:[id number] Sodium Ferric Gluconat- 100 Sucrose 125 mg In Sodium Chloride 0.9% 100 ml @ 100 mls/hr IVPB DAILY GARRY Rx#:[id number] Oral 640 Output: Urine 800 Other: Voiding Method Bedpan Bedside Commode Diaper Diaper # Voids 2 # Bowel Movements 1 - Labs CBC & Chem 7: 03/15/21 17:49 03/15/21 06:52 Labs: Abnormal Lab Results - Last 24 Hours (Table) 03/15/21 03/15/21 03/15/21 Range/Units 06:52 11:52 12:16 RBC (3.80-5.40) m/uL Hgb (11.4-16.0) gm/dL Hct (34.0-46.0) % BUN 95.0 H (9.0-27.0) mg/dL Creatinine 2.7 H (0.6-1.5) mg/dL Est GFR (CKD-EPI)AfAm 19.4 L (60.0-200.0) Est GFR (CKD-EPI)NonAf 16.7 L (60.0-200.0) BUN/Creatinine Ratio 35.85 H (12.00-20.00) Ratio POC Glucose (mg/dL) 159 H (75-99) mg/dL Stool Occult Blood Positive H (Negative) 03/15/21 03/15/21 03/15/21 Range/Units 17:21 17:49 19:51 RBC 2.74 L (3.80-5.40) m/uL Hgb 8.3 L (11.4-16.0) gm/dL Hct 25.7 L (34.0-46.0) % BUN (9.0-27.0) mg/dL Creatinine (0.6-1.5) mg/dL Est GFR (CKD-EPI)AfAm (60.0-200.0) Est GFR (CKD-EPI)NonAf (60.0-200.0) BUN/Creatinine Ratio (12.00-20.00) Ratio POC Glucose (mg/dL) 255 H 272 H (75-99) mg/dL Stool Occult Blood (Negative) 03/16/21 Range/Units 07:03 RBC (3.80-5.40) m/uL Hgb (11.4-16.0) gm/dL Hct (34.0-46.0) % BUN (9.0-27.0) mg/dL Creatinine (0.6-1.5) mg/dL Est GFR (CKD-EPI)AfAm (60.0-200.0) Est GFR (CKD-EPI)NonAf (60.0-200.0) BUN/Creatinine Ratio (12.00-20.00) Ratio POC Glucose (mg/dL) 70 L (75-99) mg/dL Stool Occult Blood (Negative) Assessment and Plan Plan: Assessment: 1. Acute kidney injury mostly prerenal secondary to hypovolemia from poor intake and diuresis. Creatinine 4 on admission and 2.7 yesterday. Morning labs pending. No hydronephrosis noted on kidney ultrasound. 2. Chronic kidney disease stage IIIB secondary to diabetic kidney disease with baseline creatinine near 1.5. 3. Diabetes mellitus. 4. Metabolic acidosis secondary to acute kidney injury. S/p bicarb drip. 5. Chronic diastolic CHF and mild to moderate mitral and tricuspid regurgitation with severe pulmonary hypertension. 6. Hyperkalemia secondary to acute kidney injury, acidosis and spironolactone. Better. 7. Elevated BUN secondary to hypovolemia. Questionable GI bleed. Better. 8. Anemia. Iron deficiency noted. Concern for GI bleed. GI and surgery foll owing. Had epistaxis. Status post blood transfusion. Plan: Maintain normal saline. Maintain IV iron. Avoid nephrotoxins. Continue to hold diuretics. Follow-up morning labs.
[2021-03-16 11:27] LABS: Glucose,Whole Blood 141 mg/dL (75-99)
[2021-03-16 11:42] LABS: Basophils % (A) 0 %; Eosinophils # (A) 0.3 k/uL (0-0.7); Eosinophils % (A) 4 %; HCT 27.4 % (34.0-46.0); HGB 8.6 gm/dL (11.4-16.0); Hypochromasia Moderate; Lymphocytes # (A) 1.4 k/uL (1.0-4.8); Lymphocytes % (A) 17 %; MCH 29.5 pg (25.0-35.0); MCHC 31.4 g/dL (31.0-37.0); MCV 93.9 fL (80.0-100.0); Mean Platelet Volume 9.6; Monocytes % (A) 12 %; Neutrophils # (A) 5.4 k/uL (1.3-7.7); Neutrophils % (A) 65 %; Platelet Count 146 k/uL (150-450); RBC 2.92 m/uL (3.80-5.40); RDW 13.1 % (11.5-15.5); WBC 8.4 k/uL (3.8-10.6)
[2021-03-16 11:49] LABS: ALT 10 U/L (4-34); AST 18 U/L (14-36); African American GFR (CKD) 24 (>60 ml/min/1.73 sqM); Albumin/Globulin Ratio 1.2; Alkaline Phosphatase 89 U/L (38-126); Anion Gap 9 mmol/L; Blood Urea Nitrogen 70 mg/dL (7-17); Calcium 8.6 mg/dL (8.4-10.2); Carbon Dioxide 33 mmol/L (22-30); Chloride 98 mmol/L (98-107); Globulin 2.6 g/dL; Glucose 152 mg/dL (74-99); Magnesium 2.1 mg/dL (1.6-2.3); Non-African American GFR(CKD) 20 (>60 ml/min/1.73 sqM); Potassium 3.7 mmol/L (3.5-5.1); Sodium 140 mmol/L (137-145); Total Bilirubin 0.7 mg/dL (0.2-1.3); Total Protein 5.6 g/dL (6.3-8.2)
--- NOTE | 2021-03-16 12:00 | ECHOF ---
Referral Reason:a-fib, CHF MEASUREMENTS -------- HEIGHT: 152.4 cm WEIGHT: 81.6 kg BP: 123/63 RVIDd: 3.4 cm (< 3.3) IVSd: 1.4 cm (0.6 - 1.1) LVIDd: 4.9 cm (3.9 - 5.3) LVPWd: 1.1 cm (0.6 - 1.1) IVSs: 1.6 cm LVIDs: 3.2 cm LVPWs: 1.8 cm LAESV Index (A-L): 48.92 ml/m Ao Diam: 2.7 cm (2.0 - 3.7) AV Cusp: 1.6 cm (1.5 - 2.6) LA Diam: 5.0 cm (2.7 - 3.8) MV EXCURSION: 12.973 mm (> 18.000) MV EF SLOPE: 55 mm/s (70 - 150) EPSS: 1.1 cm MV E Rafael: 1.34 m/s MV DecT: 171 ms MV A Rafael: 0.93 m/s MV E/A Ratio: 1.44 RAP: 5.00 mmHg RVSP: 48.92 mmHg FINDINGS -------- Sinus rhythm. This was a technically adequate study. The left ventricular size is normal. There is mild concentric left ventricular hypertrophy. Overa ll left ventricular systolic function is normal with, an EF between 55 - 60 %. The right ventricle is mildly enlarged. LA is severely dilated >40 ml/m2 The right atrium is mildly enlarged. Interatrial and interventricular septum intact. The aortic valve is trileaflet and appears structurally normal. There is mild aortic valve sclerosi s. There is no evidence of aortic regurgitation. There is no evidence of aortic stenosis. Moderate mitral annular calcification present. Yabwraoa-dn-rhxves mitral regurgitation is present. Moderate tricuspid regurgitation present. There is moderate pulmonary hypertension. The right carrie tricular systolic pressure, as measured by Doppler, is 48.92mmHg. There is no pulmonic regurgitation present. The aortic root size is normal. IVC Not well visulized. Echo free space represents a pericardial fat pad. There is no pericardial effusion. CONCLUSIONS -------- 1. The left ventricular size is normal. 2. There is mild concentric left ventricular hypertrophy. 3. Overall left ventricular systolic function is normal with, an EF between 55 - 60 %. 4. The right ventricle is mildly enlarged. 5. LA is severely dilated >40 ml/m2 6. The right atrium is mildly enlarged. 7. There is mild aortic valve sclerosis. 8. Moderate mitral annular calcification present. 9. Jycczpkl-au-smmint mitral regurgitation is present. 10. Moderate tricuspid regurgitation present. 11. There is moderate pulmonary hypertension. 12. The right ventricular systolic pressure, as measured by Doppler, is 48.92mmHg. PNEUMATIC SYSTEMS OPERATOR: Nenita Herrera RDCS
--- NOTE | 2021-03-16 13:01 | P.PN ---
Subjective Progress Note Date: 03/16/21 Principal diagnosis: AK I This is a continue present on a 75-year-old white female essentially admitted for acute kidney injury. History of noncompliant diabetes otherwise. She seems lucid and responsive. No acute distress is noted. Objective - Vital Signs Vital signs: Vital Signs Temp 98.1 F 03/16/21 11:19 Pulse 56 L 03/16/21 11:19 Resp 16 03/16/21 11:19 BP 148/66 03/16/21 11:19 Pulse Ox 100 03/16/21 11:19 Intake & Output 03/15/21 03/16/21 03/16/21 18:59 06:59 18:59 Intake Total 940 1180 Output Total 800 Balance 140 1180 Intake: Intake, IV Titration 940 540 Amount Dextrose 5% in Water 1, 840 540 000 ml @ 70 mls/hr IV . [id number] GARRY with Sodium Bicarb (1 Meq/ml) 150 ml Rx#:[id number] Sodium Ferric Gluconat- 100 Sucrose 125 mg In Sodium Chloride 0.9% 100 ml @ 100 mls/hr IVPB DAILY GARRY Rx#:[id number] Oral 640 Output: Urine 800 Other: Voiding Method Bedpan Bedside Commode Bedside Commode Diaper Diaper Diaper # Voids 2 # Bowel Movements 1 - Constitutional General appearance: Present: average body habitus - EENT Eyes: Absent: abnormal pupil - Neck Neck: Absent: lymphadenopathy - Respiratory Respiratory: bilateral: diminished - Cardiovascular Rhythm: regular Heart sounds: normal: S1, S2 - Gastrointestinal General gastrointestinal: Present: soft. Absent: splenomegaly, tenderness - Labs CBC & Chem 7: 03/16/21 10:30 03/16/21 10:30 Labs: Abnormal Lab Results - Last 24 Hours (Table) 03/15/21 03/15/21 03/15/21 Range/Units 12:16 17:21 17:49 RBC 2.74 L (3.80-5.40) m/uL Hgb 8.3 L (11.4-16.0) gm/dL Hct 25.7 L (34.0-46.0) % Plt Count (150-450) k/uL Carbon Dioxide (22-30) mmol/L BUN (7-17) mg/dL Creatinine (0.52-1.04) mg/dL Glucose (74-99) mg/dL POC Glucose (mg/dL) 255 H (75-99) mg/dL Total Protein (6.3-8.2) g/dL Albumin (3.5-5.0) g/dL Stool Occult Blood Positive H (Negative) 03/15/21 03/16/21 03/16/21 Range/Units 19:51 07:03 10:30 RBC (3.80-5.40) m/uL Hgb (11.4-16.0) gm/dL Hct (34.0-46.0) % Plt Count (150-450) k/uL Carbon Dioxide 33 H (22-30) mmol/L BUN 70 H (7-17) mg/dL Creatinine 2.25 H (0.52-1.04) mg/dL Glucose 152 H (74-99) mg/dL POC Glucose (mg/dL) 272 H 70 L (75-99) mg/dL Total Protein 5.6 L (6.3-8.2) g/dL Albumin 3.0 L (3.5-5.0) g/dL Stool Occult Blood (Negative) 03/16/21 03/16/21 Range/Units 10:30 11:22 RBC 2.92 L (3.80-5.40) m/uL Hgb 8.6 L (11.4-16.0) gm/dL Hct 27.4 L (34.0-46.0) % Plt Count 146 L (150-450) k/uL Carbon Dioxide (22-30) mmol/L BUN (7-17) mg/dL Creatinine (0.52-1.04) mg/dL Glucose (74-99) mg/dL POC Glucose (mg/dL) 141 H (75-99) mg/dL Total Protein (6.3-8.2) g/dL Albumin (3.5-5.0) g/dL Stool Occult Blood (Negative) Assessment and Plan (1) Acute kidney injury superimposed on CKD Current Visit: Yes Status: Acute Code(s): N17.9 - ACUTE KIDNEY FAILURE, UNSPECIFIED; N18.9 - CHRONIC KIDNEY DISEASE, UNSPECIFIED SNOMED Code(s): 24372705 (2) Weakness Current Visit: Yes Status: Acute Code(s): R53.1 - WEAKNESS SNOMED Code(s): 89583745 (3) Atrial fibrillation Current Visit: No Status: Acute Code(s): I48.91 - UNSPECIFIED ATRIAL FIBRILLATION SNOMED Code(s): 11824447 (4) Systolic congestive heart failure Current Visit: No Status: Acute Code(s): I50.20 - UNSPECIFIED SYSTOLIC (CONGESTIVE) HEART FAILURE SNOMED Code(s): 71687910 (5) Type 2 diabetes mellitus with hyperosmolar hyperglycemic state (HHS) Current Visit: No Status: Acute Code(s): E11.00 - TYPE 2 DIAB W HYPROSM W/O NONKET HYPRGLY-HYPROS COMA ([facility]); E11.65 - TYPE 2 DIABETES MELLITUS WITH HYPERGLYCEMIA SNOMED Code(s): 81861952 Plan: Continue current regimen of treatment. watch blood sugar closely. Check CMP in a.m. Continued improvement.
[2021-03-16] MEDS: METOPROLOL TARTRATE 50 MG TAB PO SCH ×2 (13:17→20:29)
--- NOTE | 2021-03-16 13:33 | P.PN ---
Subjective Progress Note Date: 03/16/21 CHIEF COMPLAINT: Anemia HISTORY OF PRESENT ILLNESS: Surgical service is following regards to patient's anemia. Patient has had no further epistaxis. She also reports no rectal bleeding. She had been on Eliquis outpatient for her one episode of atrial fibrillation. She also has chronic kidney disease and is receiving IV iron. Patient denies any abdominal pain. Denies any nausea or vomiting. Afebrile. WBC is 8.4 hemoglobin has increased from 8.3-8.6. Iron low at 32 PHYSICAL EXAM: VITAL SIGNS: Reviewed. GENERAL: Well-developed in no acute distress. HEENT: No sclera icterus. Extraocular movements grossly intact. Moist buccal mucosa. Head is atraumatic, normocephalic. ABDOMEN: Soft. Nondistended. Nontender. NEUROLOGIC: Alert and oriented. Cranial nerves II through XII grossly intact. ASSESSMENT: 1. Anemia likely due to epistaxis and is on Eliquis outpatient PLAN: -Continue to observe -If patient shows any signs of GI bleeding we'll perform upper and lower endoscopy -Agree with holding [facility] Your [facility] Physician Polishing Wheel Repairer note has been reviewed by physician. Signing provider agrees with the documented findings, assessment, and plan of care. Objective - Vital Signs Vital signs: Vital Signs Temp 98.1 F 03/16/21 11:19 Pulse 56 L 03/16/21 11:19 Resp 16 03/16/21 11:19 BP 148/66 03/16/21 11:19 Pulse Ox 100 03/16/21 11:19 Intake & Output 03/15/21 03/16/21 03/16/21 18:59 06:59 18:59 Intake Total 940 1180 Output Total 800 Balance 140 1180 Intake: Intake, IV Titration 940 540 Amount Dextrose 5% in Water 1, 840 540 000 ml @ 70 mls/hr IV . [id number] GARRY with Sodium Bicarb (1 Meq/ml) 150 ml Rx#:[id number] Sodium Ferric Gluconat- 100 Sucrose 125 mg In Sodium Chloride 0.9% 100 ml @ 100 mls/hr IVPB DAILY GARRY Rx#:[id number] Oral 640 Output: Urine 800 Other: Voiding Method Bedpan Bedside Commode Bedside Commode Diaper Diaper Diaper # Voids 2 # Bowel Movements 1 - Labs CBC & Chem 7: 03/16/21 10:30 03/16/21 10:30 Labs: Abnormal Lab Results - Last 24 Hours (Table) 03/15/21 03/15/21 03/15/21 Range/Units 17:21 17:49 19:51 RBC 2.74 L (3.80-5.40) m/uL Hgb 8.3 L (11.4-16.0) gm/dL Hct 25.7 L (34.0-46.0) % Plt Count (150-450) k/uL Carbon Dioxide (22-30) mmol/L BUN (7-17) mg/dL Creatinine (0.52-1.04) mg/dL Glucose (74-99) mg/dL POC Glucose (mg/dL) 255 H 272 H (75-99) mg/dL Total Protein (6.3-8.2) g/dL Albumin (3.5-5.0) g/dL 03/16/21 03/16/21 03/16/21 Range/Units 07:03 10:30 10:30 RBC 2.92 L (3.80-5.40) m/uL Hgb 8.6 L (11.4-16.0) gm/dL Hct 27.4 L (34.0-46.0) % Plt Count 146 L (150-450) k/uL Carbon Dioxide 33 H (22-30) mmol/L BUN 70 H (7-17) mg/dL Creatinine 2.25 H (0.52-1.04) mg/dL Glucose 152 H (74-99) mg/dL POC Glucose (mg/dL) 70 L (75-99) mg/dL Total Protein 5.6 L (6.3-8.2) g/dL Albumin 3.0 L (3.5-5.0) g/dL 03/16/21 Range/Units 11:22 RBC (3.80-5.40) m/uL Hgb (11.4-16.0) gm/dL Hct (34.0-46.0) % Plt Count (150-450) k/uL Carbon Dioxide (22-30) mmol/L BUN (7-17) mg/dL Creatinine (0.52-1.04) mg/dL Glucose (74-99) mg/dL POC Glucose (mg/dL) 141 H (75-99) mg/dL Total Protein (6.3-8.2) g/dL Albumin (3.5-5.0) g/dL
[2021-03-16 17:43] LABS: Glucose,Whole Blood 258 mg/dL (75-99)
[2021-03-16 20:24] LABS: Glucose,Whole Blood 237 mg/dL (75-99)
[2021-03-16] MEDS: INSULIN DETEMIR (LEVEMIR) 100 UNIT/ML SYR SQ SCH (20:28)
[2021-03-16] MEDS: LATANOPROST 0.005% OPHTH DROPS 2.5 ML BTL LEFT EYE SCH (20:30)
[2021-03-17 04:48] VITALS: RESP 18
[2021-03-17 06:42] LABS: ALT 11 U/L (4-34); AST 20 U/L (14-36); African American GFR (CKD) 24 (>60 ml/min/1.73 sqM); Albumin 3.1 g/dL (3.5-5.0); Albumin/Globulin Ratio 1.1; Alkaline Phosphatase 92 U/L (38-126); Anion Gap 10 mmol/L; Blood Urea Nitrogen 62 mg/dL (7-17); Carbon Dioxide 31 mmol/L (22-30); Chloride 103 mmol/L (98-107); Globulin 2.7 g/dL; Magnesium 2.3 mg/dL (1.6-2.3); Non-African American GFR(CKD) 20 (>60 ml/min/1.73 sqM); Potassium 4.1 mmol/L (3.5-5.1); Sodium 144 mmol/L (137-145); Total Protein 5.8 g/dL (6.3-8.2)
[2021-03-17 07:03] LABS: Glucose,Whole Blood 138 mg/dL (75-99)
[2021-03-17] MEDS: SODIUM CHLORIDE 0.9% 1,000 ML IV SCH (07:18)
[2021-03-17 07:21] LABS: Glucose 43 mg/dL (74-99)
[2021-03-17 07:34] LABS: Glucose,Whole Blood 144 mg/dL (75-99)
--- NOTE | 2021-03-17 08:26 | P.DS ---
Providers Date of admission: 03/14/21 01:07 Attending physician: Last Barrios Consults: 03/13/21 23:32 Consult Physician Urgent Consulting Provider: Doni Vance Consult Reason/Comments: Acute on Chronic Renal Disease Do you want consulting provider notified?: Yes, Notify in am 03/14/21 11:09 Consult Physician Routine Consulting Provider: Mina Chavez Consult Reason/Comments: established pt, taking Eliquis with symptomatic anemia Do you want consulting provider notified?: Yes 03/14/21 14:31 Consult Physician Routine Consulting Provider: Geo Evans Consult Reason/Comments: new anemia unknown cause Do you want consulting provider notified?: Yes Primary care physician: Last Barrios - Discharge Diagnosis(es) (1) Acute kidney injury superimposed on CKD Current Visit: Yes Status: Acute (2) Weakness Current Visit: Yes Status: Acute (3) Atrial fibrillation Current Visit: No Status: Acute (4) Systolic congestive heart failure Current Visit: No Status: Acute (5) Type 2 diabetes mellitus with hyperosmolar hyperglycemic state (HHS) Current Visit: No Status: Acute Hospital Course: Discharge summary on a 75-year-old white female centimeter for acute on chronic renal failure. Hydration stabilized the patient. She was discontinued from nephrotoxic agents. The patient had appropriate consultation including surgery related to potential GI bleed. Once the patient is stabilized, we'll clear with consultants and discharge. She'll need close follow-up for CBC. Diuretics have been discontinued due to nephrotoxicity. We will reevaluate and most likely restart diuretic treatment. Patient Condition at Discharge: Serious Plan - Discharge Summary New Discharge Prescriptions: Continue Aspirin 81 mg PO DAILY #30 chew Cholecalciferol [Vitamin D3 (25 Mcg = 1000 Iu)] 50 mcg PO DAILY Metoprolol Tartrate [Lopressor] 50 mg PO BID Enalapril Maleate [Vasotec] 5 mg PO BID Doxycycline Hyclate 100 mg PO BID Latanoprost/Pf [Latanoprost 0.005% Eye Drop] 1 drop LEFT EYE QAM Brimonidine Tartrate/Timolol [Combigan 0.2%-0.5% Eye Drops] 1 drop LEFT EYE TID Amiodarone HCl [Pacerone] 1 tab PO DAILY Insulin Glargine,Hum.rec.anlog [Lantus Solostar Pen] 22 unit SQ HS Dorzolamide 2% [Trusopt 2%] 1 drop LEFT EYE TID Discontinued Apixaban [Eliquis] 5 mg PO BID #60 tab Spironolactone [Aldactone] 25 mg PO DAILY #30 tab Furosemide [Lasix] 60 mg PO BID@0900,1600 #60 tab Discharge Medication List Aspirin 81 mg PO DAILY #30 chew 07/01/19 [Rx] Cholecalciferol [Vitamin D3 (25 Mcg = 1000 Iu)] 50 mcg PO DAILY 04/14/20 [History] Metoprolol Tartrate [Lopressor] 50 mg PO BID 05/04/20 [History] Insulin Glargine,Hum.rec.anlog [Lantus Solostar Pen] 22 unit SQ HS 07/19/20 [History] Enalapril Maleate [Vasotec] 5 mg PO BID 08/17/20 [History] Brimonidine Tartrate/Timolol [Combigan 0.2%-0.5% Eye Drops] 1 drop LEFT EYE TID 03/14/21 [History] Dorzolamide 2% [Trusopt 2%] 1 drop LEFT EYE TID 03/14/21 [History] Doxycycline Hyclate 100 mg PO BID 03/14/21 [History] Latanoprost/Pf [Latanoprost 0.005% Eye Drop] 1 drop LEFT EYE QAM 03/14/21 [History] Amiodarone HCl [Pacerone] 1 tab PO DAILY 03/15/21 [History] Follow up Appointment(s)/Referral(s): [facility], [NON-STAFF] - 1 Week Last Barrios MD [Primary Care Provider] - 1-2 days Mina Chavez MD [STAFF PHYSICIAN] - 1 Week
[2021-03-17] MEDS: CHOLECALCIFEROL 25 MCG (1000 IU) TABLET PO SCH (09:15)
[2021-03-17] MEDS: SODIUM FERRIC GLUCONAT-SUCROSE 125 MG in SODIUM CHLORIDE 0.9% 100 ML IVPB SCH (09:15)
[2021-03-17] MEDS: AMIODARONE 100 MG TAB PO SCH ×2 (09:16→09:21)
[2021-03-17] MEDS: METOPROLOL TARTRATE 50 MG TAB PO SCH (09:16)
[2021-03-17] MEDS: DORZOLAMIDE HCL 2% DROPS 10 ML BTL LEFT EYE SCH (09:17)
[2021-03-17] MEDS: INSULIN ASPART (NovoLOG) 100 UNIT/ML VIAL SQ SCH ×2 (09:17→13:11)
[2021-03-17] MEDS: BRIMONIDINE TARTRATE 0.2% DROPS 5 ML BTL LEFT EYE SCH (09:17)
[2021-03-17] MEDS: TIMOLOL 0.5% OPHTH DROPS 5 ML BTL LEFT EYE SCH (09:18)
--- NOTE | 2021-03-17 10:44 | P.PN ---
Subjective Patient is seen in follow-up for acute kidney injury on chronic kidney disease. Renal function stable today. Oral intake improved. No vomiting or diarrhea. Good urine output. Hemodynamically stable. Vital signs are stable. General: The patient appeared well nourished and normally developed. HEENT: Head exam is unremarkable. LUNGS: Breath sounds decreased. HEART: Rate and Rhythm are regular. ABDOMEN: Soft, no distention. EXTREMITITES: No edema. Objective - Vital Signs Vital signs: Vital Signs Temp 97.7 F 03/17/21 03:50 Pulse 55 L 03/17/21 03:50 Resp 18 03/17/21 03:50 BP 145/63 03/17/21 03:50 Pulse Ox 100 03/17/21 03:50 Intake & Output 03/16/21 03/17/21 03/17/21 18:59 06:59 18:59 Intake Total 540 Output Total 800 Balance -260 Intake: Oral 540 Output: Urine 800 Other: Voiding Method Bedside Commode Bedside Commode Bedside Commode Diaper # Voids 2 - Labs CBC & Chem 7: 03/16/21 10:30 03/17/21 05:51 Labs: Abnormal Lab Results - Last 24 Hours (Table) 03/16/21 03/16/21 03/16/21 Range/Units 10:30 10:30 11:22 RBC 2.92 L (3.80-5.40) m/uL Hgb 8.6 L (11.4-16.0) gm/dL Hct 27.4 L (34.0-46.0) % Plt Count 146 L (150-450) k/uL Carbon Dioxide 33 H (22-30) mmol/L BUN 70 H (7-17) mg/dL Creatinine 2.25 H (0.52-1.04) mg/dL Glucose 152 H (74-99) mg/dL POC Glucose (mg/dL) 141 H (75-99) mg/dL Total Protein 5.6 L (6.3-8.2) g/dL Albumin 3.0 L (3.5-5.0) g/dL 03/16/21 03/16/21 03/17/21 Range/Units 17:41 20:22 05:51 RBC (3.80-5.40) m/uL Hgb (11.4-16.0) gm/dL Hct (34.0-46.0) % Plt Count (150-450) k/uL Carbon Dioxide 31 H (22-30) mmol/L BUN 62 H (7-17) mg/dL Creatinine 2.26 H (0.52-1.04) mg/dL Glucose 43 L* (74-99) mg/dL POC Glucose (mg/dL) 258 H 237 H (75-99) mg/dL Total Protein 5.8 L (6.3-8.2) g/dL Albumin 3.1 L (3.5-5.0) g/dL 03/17/21 03/17/21 Range/Units 07:00 07:32 RBC (3.80-5.40) m/uL Hgb (11.4-16.0) gm/dL Hct (34.0-46.0) % Plt Count (150-450) k/uL Carbon Dioxide (22-30) mmol/L BUN (7-17) mg/dL Creatinine (0.52-1.04) mg/dL Glucose (74-99) mg/dL POC Glucose (mg/dL) 138 H 144 H (75-99) mg/dL Total Protein (6.3-8.2) g/dL Albumin (3.5-5.0) g/dL Assessment and Plan Plan: Assessment: 1. Acute kidney injury mostly prerenal secondary to hypovolemia from poor intake and diuresis. Creatinine 4 on admission and is 2.26 today. No hydronephrosis noted on kidney ultrasound. 2. Chronic kidney disease stage IIIB secondary to diabetic kidney disease with baseline creatinine near 1.5. 3. Diabetes mellitus. 4. Metabolic acidosis secondary to acute kidney injury. S/p bicarb drip. Resolved. 5. Chronic diastolic CHF and mild to moderate mitral and tricuspid regurgitation with severe pulmonary hypertension. 6. Hyperkalemia secondary to acute kidney injury, acidosis and spironolactone. Improved. 7. Elevated BUN secondary to hypovolemia. Questionable GI bleed. Better. 8. Anemia. Iron deficiency noted. Concern for GI bleed. GI and surgery following. Had epistaxis. Status post blood transfusion. Plan: Maintain normal saline. Maintain IV iron. Avoid nephrotoxins. Current oral intake. Follow up outpatient in 1 week post discharge.
[2021-03-17 12:20] LABS: Glucose,Whole Blood 146 mg/dL (75-99)
[2021-03-17 12:45] VITALS: BP 128/61; PULSE 62; TEMP 97.5
--- NOTE | 2021-03-17 13:04 | P.PN ---
Subjective Progress Note Date: 03/17/21 CHIEF COMPLAINT: Anemia HISTORY OF PRESENT ILLNESS: Surgical service is following regards to patient's anemia. Patient has had no further epistaxis. She also reports no rectal bleeding or black stools. Patient did receive blood transfusion and IV iron during this admission. Her Eliquis has been held. Patient denies any abdominal pain. Denies any nausea or vomiting. Afebrile. hemoglobin has increased from 8.3-8.6 yesterday. PHYSICAL EXAM: VITAL SIGNS: Reviewed. GENERAL: Well-developed in no acute distress. HEENT: No sclera icterus. Extraocular movements grossly intact. Moist buccal m ucosa. Head is atraumatic, normocephalic. ABDOMEN: Soft. Nondistended. Nontender. NEUROLOGIC: Alert and oriented. Cranial nerves II through XII grossly intact. ASSESSMENT: 1. Anemia likely due to epistaxis and is on Eliquis outpatient. No evidence of GI bleed PLAN: -Patient can be discharged from surgical standpoint Physician Director Of Resource Development note has been reviewed by physician. Signing provider agrees with the documented findings, assessment, and plan of care. Objective - Vital Signs Vital signs: Vital Signs Temp 97.7 F 03/17/21 03:50 Pulse 55 L 03/17/21 03:50 Resp 18 03/17/21 03:50 BP 145/63 03/17/21 03:50 Pulse Ox 100 03/17/21 03:50 Intake & Output 03/16/21 03/17/21 03/17/21 18:59 06:59 18:59 Intake Total 540 Output Total 800 Balance -260 Intake: Oral 540 Output: Urine 800 Other: Voiding Method Bedside Commode Bedside Commode Bedside Commode Diaper # Voids 2 - Labs CBC & Chem 7: 03/16/21 10:30 03/17/21 05:51 Labs: Abnormal Lab Results - Last 24 Hours (Table) 03/16/21 03/16/21 03/16/21 Range/Units 10:30 17:41 20:22 Carbon Dioxide 33 H (22-30) mmol/L BUN 70 H (7-17) mg/dL Creatinine 2.25 H (0.52-1.04) mg/dL Glucose 152 H (74-99) mg/dL POC Glucose (mg/dL) 258 H 237 H (75-99) mg/dL Total Protein 5.6 L (6.3-8.2) g/dL Albumin 3.0 L (3.5-5.0) g/dL 03/17/21 03/17/21 03/17/21 Range/Units 05:51 07:00 07:32 Carbon Dioxide 31 H (22-30) mmol/L BUN 62 H (7-17) mg/dL Creatinine 2.26 H (0.52-1.04) mg/dL Glucose 43 L* (74-99) mg/dL POC Glucose (mg/dL) 138 H 144 H (75-99) mg/dL Total Protein 5.8 L (6.3-8.2) g/dL Albumin 3.1 L (3.5-5.0) g/dL
== END 2021-03-17 15:54 | disposition home health service (06) | DRG 682 ==
LOC: EC 18:41 → 5NMEDONC 03-14 01:07
PROVIDERS: ADMIT Family Medicine; ATTEND Family Medicine
PROC: 30233N1 Transfusion of Nonautologous Red Blood Cells into Peripheral Vein, Percutaneous Approach (ICD-10-PCS; principal; 2021-03-14)
DX: N17.0 Acute kidney failure with tubular necrosis (principal); E11.00 Type 2 diabetes mellitus with hyperosmolarity without nonketotic hyperglycemic-hyperosmolar coma (NKHHC); N39.0 Urinary tract infection, site not specified; D62 Acute posthemorrhagic anemia; I13.0 Hypertensive heart and chronic kidney disease with heart failure and stage 1 through stage 4 chronic kidney disease, or unspecified chronic kidney disease; I42.9 Cardiomyopathy, unspecified; I50.42 Chronic combined systolic (congestive) and diastolic (congestive) heart failure; J44.9 Chronic obstructive pulmonary disease, unspecified; N18.32 Chronic kidney disease, stage 3b; D50.9 Iron deficiency anemia, unspecified; Z20.822 Contact with and (suspected) exposure to COVID-19; E11.22 Type 2 diabetes mellitus with diabetic chronic kidney disease; E11.40 Type 2 diabetes mellitus with diabetic neuropathy, unspecified; E11.65 Type 2 diabetes mellitus with hyperglycemia; E66.9 Obesity, unspecified; Z68.35 Body mass index [BMI] 35.0-35.9, adult; I08.1 Rheumatic disorders of both mitral and tricuspid valves; I25.2 Old myocardial infarction; Z87.891 Personal history of nicotine dependence; I25.10 Atherosclerotic heart disease of native coronary artery without angina pectoris; I27.20 Pulmonary hypertension, unspecified; Z86.74 Personal history of sudden cardiac arrest; E86.1 Hypovolemia; I44.7 Left bundle-branch block, unspecified; E78.5 Hyperlipidemia, unspecified; I48.0 Paroxysmal atrial fibrillation; R04.0 Epistaxis; E87.5 Hyperkalemia; Z79.01 Long term (current) use of anticoagulants; Z79.82 Long term (current) use of aspirin; Z79.899 Other long term (current) drug therapy; Z80.1 Family history of malignant neoplasm of trachea, bronchus and lung; Z82.5 Family history of asthma and other chronic lower respiratory diseases; Z83.3 Family history of diabetes mellitus; Z87.01 Personal history of pneumonia (recurrent); Z87.440 Personal history of urinary (tract) infections; Z91.19 Patient's noncompliance with other medical treatment and regimen; Z95.5 Presence of coronary angioplasty implant and graft; Z98.890 Other specified postprocedural states; Z98.42 Cataract extraction status, left eye; Z98.41 Cataract extraction status, right eye; Z96.1 Presence of intraocular lens; Z88.1 Allergy status to other antibiotic agents; Z91.012 Allergy to eggs; Z91.040 Latex allergy status; Z88.0 Allergy status to penicillin; Z88.8 Allergy status to other drugs, medicaments and biological substances; Z91.018 Allergy to other foods; Z79.4 Long term (current) use of insulin
CPT/HCPCS: 36415; 71046; 76770; 80048; 80053; 81001; 82272; 82570; 82728; 83540; 83550; 83605; 83735; 83880; 83930; 83935; 84100; 84133; 84300; 84484; 85025; 85610; 85730; 86850; 86900; 86901; 86920; 87635; 93005; 93306; 96360; 96361; 99285

== ENCOUNTER 2021-04-01 05:45 | Inpatient (IN) | payer MEDICARE, OTHER ==
--- NOTE | 2021-04-01 06:25 | ED ---
General Adult HPI - General Chief complaint: Shortness of Breath Stated complaint: Difficulty Breathing Time Seen by Provider: 04/01/21 05:54 Source: patient, RN notes reviewed Mode of arrival: EMS Limitations: no limitations - History of Present Illness Initial comments: This a 75-year-old female presents emergency from via EMS chief complaint shortness breath, analyzed weakness. Patient states she is in the hospital 2 weeks ago in which she had some kidney issues. Patient states that for after her discharge she was discontinued off her diuretics by cardiology pending her pathology evaluation. Patient states that she saw her PCP Dr. Barrios yesterday in which she is feeling somewhat okay she's overnight she developed increasing shortness of breath, leg swelling states she feels very weak. Denies any cough, nausea vomiting at this time states that she was having some diarrhea but more constipated at this time no dysuria no hematuria no flank pain. Patient states she is also discontinued of her Eliquis secondary to bleeding issues. - Related Data Home Medications Medication Instructions Recorded Confirmed Cholecalciferol [Vitamin D3 (25 50 mcg PO DAILY 04/14/20 03/14/21 Mcg = 1000 Iu)] Metoprolol Tartrate [Lopressor] 50 mg PO BID 05/04/20 03/14/21 Insulin Glargine,Hum.rec.anlog 22 unit SQ HS 07/19/20 03/14/21 [Lantus Solostar Pen] Enalapril Maleate [Vasotec] 5 mg PO BID 08/17/20 03/14/21 Brimonidine Tartrate/Timolol 1 drop LEFT EYE TID 03/14/21 03/14/21 [Combigan 0.2%-0.5% Eye Drops] Dorzolamide 2% [Trusopt 2%] 1 drop LEFT EYE TID 03/14/21 03/14/21 Doxycycline Hyclate 100 mg PO BID 03/14/21 03/14/21 Latanoprost/Pf [Latanoprost 0.005% 1 drop LEFT EYE QAM 03/14/21 03/14/21 Eye Drop] Amiodarone HCl [Pacerone] 1 tab PO DAILY 03/15/21 03/15/21 Previous Rx's Medication Instructions Recorded Aspirin 81 mg PO DAILY #30 chew 07/01/19 Allergies Allergy/AdvReac Type Severity Reaction Status Date / Time Corticosteroids Allergy Unknown Unknown Verified 03/14/21 06:40 (Glucocorticoids) egg Allergy Unknown Unknown Verified 03/14/21 06:40 azithromycin [From Zithromax] Allergy Anaphylaxis Verified 03/14/21 06:40 banana Allergy Unknown Verified 03/14/21 06:40 carisoprodol [From Soma] Allergy Unknown Verified 03/14/21 06:40 ciprofloxacin [From Cipro] Allergy Unknown Verified 03/14/21 06:40 cortisone [Cortisone] Allergy Unknown Verified 03/14/21 06:40 cyclobenzaprine HCl Allergy Unknown Verified 03/14/21 06:40 [From Flexeril] latex Allergy Unknown Verified 03/14/21 06:40 Latex, Natural Rubber Allergy Unknown Verified 03/14/21 06:40 levofloxacin [From Levaquin] Allergy Anaphylaxis Verified 03/14/21 06:40 Penicillins Allergy Anaphylaxis Verified 03/14/21 06:40 Review of Systems ROS Statement: Those systems with pertinent positive or pertinent negative responses have been documented in the HPI. ROS Other: All systems not noted in ROS Statement are negative. Past Medical History Past Medical History: Atrial Fibrillation, Coronary Artery Disease (CAD), Chest Pain / Angina, Heart Failure, Diabetes Mellitus, Eye Disorder, Hypertension, Myocardial Infarction (RI), Osteoarthritis (OA), Pneumonia, Renal Disease Additional Past Medical History / Comment(s): NIDDM type II, neuropathy bilateral feet, 01-03-14 [place]/cardiac arrest/resp failure/intubation, UTIs, past L eye retinal bleed with surgery. Last Myocardial Infarction Date:: 01-03-14 History of Any Multi-Drug Resistant Organisms: None Reported Past Surgical History: Heart Catheterization, Heart Catheterization With Stent Additional Past Surgical History / Comment(s): Stent RCA 01-07-14, stent LAD 02/14/2019, L retinal bleed with surgery, bilateral cataract removal/lens implants, colonoscopy Past Anesthesia/Blood Transfusion Reactions: No Reported Reaction Date of Last Stent Placement:: 2013 Past Psychological History: No Psychological Hx Reported Smoking Status: Former smoker - Past Family History Father Family Medical History: Cancer, Diabetes Mellitus Additional Family Medical History / Comment(s): age 70 from lung cancer Mother Family Medical History: COPD Additional Family Medical History / Comment(s): age 83 emphysema General Exam Limitations: no limitations General appearance: alert, in no apparent distress Head exam: Present: atraumatic, normocephalic, normal inspection Eye exam: Present: normal appearance, PERRL, EOMI. Absent: scleral icterus, conjunctival injection, periorbital swelling ENT exam: Present: normal exam, normal oropharynx, mucous membranes moist Neck exam: Present: normal inspection, full ROM. Absent: tenderness, meningismus, lymphadenopathy Respiratory exam: Present: decreased breath sounds. Absent: normal lung sounds bilaterally, respiratory distress, wheezes, rales, rhonchi, stridor Cardiovascular Exam: Present: regular rate, normal rhythm, normal heart sounds. Absent: systolic murmur, diastolic murmur, rubs, gallop, clicks GI/Abdominal exam: Present: soft, normal bowel sounds. Absent: distended, tenderness, guarding, rebound, rigid Extremities exam: Present: pedal edema (Bilateral swelling noted) Neurological exam: Present: alert Skin exam: Present: warm, dry, intact, normal color. Absent: rash Course Vital Signs 04/01/21 05:47 Temperature 98.3 F Pulse Rate 63 Respiratory 16 Rate Blood Pressure 138/66 O2 Sat by Pulse 98 Oximetry Medical Decision Making - Medical Decision Making Chest x-ray shows evidence of this blood pressure, pulmonary edema. Patient's BNP is over 10,000. Patient and worsening renal failure. Patient does have evidence of anemia which is been chronic or worsen. Patient case discussed with Dr. Barrios will be admitted with cardiology and nephrology consult patient was given Lasix for CHF - Lab Data Result diagrams: 04/01/21 05:58 04/01/21 05:58 Lab Results 04/01/21 04/01/21 04/01/21 Range/Units 05:58 05:58 05:58 WBC 7.8 (3.8-10.6) k/uL RBC 2.50 L (3.80-5.40) m/uL Hgb 7.4 L (11.4-16.0) gm/dL Hct 24.1 L (34.0-46.0) % MCV 96.2 (80.0-100.0) fL MCH 29.6 (25.0-35.0) pg MCHC 30.7 L (31.0-37.0) g/dL RDW 14.7 (11.5-15.5) % Plt Count 181 (150-450) k/uL MPV 9.0 Neutrophils % 71 % Lymphocytes % 16 % Monocytes % 8 % Eosinophils % 2 % Basophils % 0 % Neutrophils # 5.6 (1.3-7.7) k/uL Lymphocytes # 1.3 (1.0-4.8) k/uL Monocytes # 0.6 (0-1.0) k/uL Eosinophils # 0.2 (0-0.7) k/uL Basophils # 0.0 (0-0.2) k/uL Hypochromasia Marked Sodium 138 (137-145) mmol/L Potassium 5.1 (3.5-5.1) mmol/L Chloride 112 H (98-107) mmol/L Carbon Dioxide 17 L (22-30) mmol/L Anion Gap 9 mmol/L BUN 47 H (7-17) mg/dL Creatinine 3.04 H (0.52-1.04) mg/dL Est GFR (CKD-EPI)AfAm 16 (>60 ml/min/1.73 sqM) Est GFR (CKD-EPI)NonAf 14 (>60 ml/min/1.73 sqM) Glucose 155 H (74-99) mg/dL POC Glucose (mg/dL) (75-99) mg/dL POC Glu Boiler Coverer ID Plasma Lactic Acid Jona 0.7 (0.7-2.0) mmol/L Calcium 8.7 (8.4-10.2) mg/dL Magnesium 2.7 H (1.6-2.3) mg/dL Total Bilirubin 0.6 (0.2-1.3) mg/dL AST 19 (14-36) U/L ALT 15 (4-34) U/L Alkaline Phosphatase 96 (38-126) U/L Troponin I (0.000-0.034) ng/mL NT-Pro-B Natriuret Pep pg/mL Total Protein 6.0 L (6.3-8.2) g/dL Albumin 3.2 L (3.5-5.0) g/dL Coronavirus (PCR) (Not Detectd) 04/01/21 04/01/21 04/01/21 Range/Units 05:58 05:59 05:59 WBC (3.8-10.6) k/uL RBC (3.80-5.40) m/uL Hgb (11.4-16.0) gm/dL Hct (34.0-46.0) % MCV (80.0-100.0) fL MCH (25.0-35.0) pg MCHC (31.0-37.0) g/dL RDW (11.5-15.5) % Plt Count (150-450) k/uL MPV Neutrophils % % Lymphocytes % % Monocytes % % Eosinophils % % Basophils % % Neutrophils # (1.3-7.7) k/uL Lymphocytes # (1.0-4.8) k/uL Monocytes # (0-1.0) k/uL Eosinophils # (0-0.7) k/uL Basophils # (0-0.2) k/uL Hypochromasia Sodium (137-145) mmol/L Potassium (3.5-5.1) mmol/L Chloride (98-107) mmol/L Carbon Dioxide (22-30) mmol/L Anion Gap mmol/L BUN (7-17) mg/dL Creatinine (0.52-1.04) mg/dL Est GFR (CKD-EPI)AfAm (>60 ml/min/1.73 sqM) Est GFR (CKD-EPI)NonAf (>60 ml/min/1.73 sqM) Glucose (74-99) mg/dL POC Glucose (mg/dL) (75-99) mg/dL POC Glu Boiler Coverer ID Plasma Lactic Acid Jona (0.7-2.0) mmol/L Calcium (8.4-10.2) mg/dL Magnesium (1.6-2.3) mg/dL Total Bilirubin (0.2-1.3) mg/dL AST (14-36) U/L ALT (4-34) U/L Alkaline Phosphatase (38-126) U/L Troponin I <0.012 (0.000-0.034) ng/mL NT-Pro-B Natriuret Pep 97375 pg/mL Total Protein (6.3-8.2) g/dL Albumin (3.5-5.0) g/dL Coronavirus (PCR) Not Detected (Not Detectd) 04/01/21 Range/Units 07:30 WBC (3.8-10.6) k/uL RBC (3.80-5.40) m/uL Hgb (11.4-16.0) gm/dL Hct (34.0-46.0) % MCV (80.0-100.0) fL MCH (25.0-35.0) pg MCHC (31.0-37.0) g/dL RDW (11.5-15.5) % Plt Count (150-450) k/uL MPV Neutrophils % % Lymphocytes % % Monocytes % % Eosinophils % % Basophils % % Neutrophils # (1.3-7.7) k/uL Lymphocytes # (1.0-4.8) k/uL Monocytes # (0-1.0) k/uL Eosinophils # (0-0.7) k/uL Basophils # (0-0.2) k/uL Hypochromasia Sodium (137-145) mmol/L Potassium (3.5-5.1) mmol/L Chloride (98-107) mmol/L Carbon Dioxide (22-30) mmol/L Anion Gap mmol/L BUN (7-17) mg/dL Creatinine (0.52-1.04) mg/dL Est GFR (CKD-EPI)AfAm (>60 ml/min/1.73 sqM) Est GFR (CKD-EPI)NonAf (>60 ml/min/1.73 sqM) Glucose (74-99) mg/dL POC Glucose (mg/dL) 157 H (75-99) mg/dL POC Glu Boiler Coverer ID Idalmis Shepherd Plasma Lactic Acid Jona (0.7-2.0) mmol/L Calcium (8.4-10.2) mg/dL Magnesium (1.6-2.3) mg/dL Total Bilirubin (0.2-1.3) mg/dL AST (14-36) U/L ALT (4-34) U/L Alkaline Phosphatase (38-126) U/L Troponin I (0.000-0.034) ng/mL NT-Pro-B Natriuret Pep pg/mL Total Protein (6.3-8.2) g/dL Albumin (3.5-5.0) g/dL Coronavirus (PCR) (Not Detectd) Critical Care Time Critical Care Time: Yes Total Critical Care Time: 35 Disposition Clinical Impression: CHF exacerbation, Anemia, Acute on chronic renal failure, Acute pulmonary edema Disposition: ADMITTED IP TO THIS HOSP Condition: Fair Referrals: Last Barrios MD [Primary Care Provider] - 1-2 days
[2021-04-01 06:30] LABS: Basophils % (A) 0 %; Eosinophils # (A) 0.2 k/uL (0-0.7); Eosinophils % (A) 2 %; HCT 24.1 % (34.0-46.0); HGB 7.4 gm/dL (11.4-16.0); Hypochromasia Marked; Lymphocytes # (A) 1.3 k/uL (1.0-4.8); Lymphocytes % (A) 16 %; MCH 29.6 pg (25.0-35.0); MCHC 30.7 g/dL (31.0-37.0); MCV 96.2 fL (80.0-100.0); Monocytes # (A) 0.6 k/uL (0-1.0); Monocytes % (A) 8 %; Neutrophils # (A) 5.6 k/uL (1.3-7.7); Neutrophils % (A) 71 %; Platelet Count 181 k/uL (150-450); RDW 14.7 % (11.5-15.5); WBC 7.8 k/uL (3.8-10.6)
[2021-04-01 06:51] LABS: Albumin 3.2 g/dL (3.5-5.0); Calcium 8.7 mg/dL (8.4-10.2); Magnesium 2.7 mg/dL (1.6-2.3); Potassium 5.1 mmol/L (3.5-5.1); Total Bilirubin 0.6 mg/dL (0.2-1.3)
--- NOTE | 2021-04-01 06:53 | XR ---
EXAMINATION TYPE: XR chest 2V DATE OF EXAM: 04/01/2021 COMPARISON: Chest x-ray March 13, 2021 HISTORY: Difficulty in breathing. TECHNIQUE: Frontal and lateral views of the chest are obtained. FINDINGS: The osseous structures are redemonstrated demineralized. Background chronic emphysematous change redemonstrated. More prominent cardiomegaly with new central increased opacities bilaterally a nd small bilateral pleural effusions with associated right basilar opacity could reflect atelectasis and/or infiltrate. IMPRESSION: Suspect CHF exacerbation as there is more prominent cardiomegaly with moderate central a lveolar edema and small bilateral pleural effusions now present. Correlate clinically as developing a cute infiltrate in the right lower lobe cannot be excluded.
[2021-04-01] MEDS ORDERED: FUROSEMIDE 10 MG/ML 4 ML VIAL IV STA (07:18)
[2021-04-01 07:22] LABS: Prothrombin Time 10.7 sec (9.0-12.0)
[2021-04-01 07:32] LABS: Glucose,Whole Blood 157 mg/dL (75-99)
[2021-04-01 07:50] LABS: Partial Thromboplastin Time 20.8 sec (22.0-30.0)
[2021-04-01] MEDS ORDERED: MAGNESIUM HYDROXIDE 2,400 MG/10 ML CUP PO PRN (08:42)
[2021-04-01] MEDS ORDERED: AMIODARONE 100 MG TAB PO SCH (09:00)
--- NOTE | 2021-04-01 10:13 | P.CRDCN ---
History of Present Illness Consult date: 04/01/21 Consult reason: congestive heart failure Chief complaint: Shortness of breath History of present illness: Known coronary artery disease status post angioplasty paroxysmal atrial fibrillation chronic diastolic heart failure and pulmonary hypertension comes to Hospital complaining of shortness of breath fatigue and leg edema Patient was on diuretics for heart failure that are currently on hold because of renal insufficiency that she had at last visit She also has anemia related to blood loss and the anticoagulant that she was on for paroxysmal atrial fibrillation and is on hold Patient comes in with worsening leg edema and shortness of breath fatigue and tiredness and is found to be in acute exacerbation of chronic diastolic heart failure She received intravenous diuretics with some improvement in her symptoms and I'm going to discharge her home on oral Lasix She denies chest pain Uncontrolled have an EKG at this time She had a recent echocardiogram that showed normal LV systolic function with an ejection fraction of 60% moderate to severe mitral regurgitation and mild to moderate pulmonary hypertension Will let treat her with IV Lasix and switch her to by mouth Lasix tomorrow and hopefully discharge her home Review of Systems Constitutional: Denies chills. Denies fever. Eyes: Denies blurred vision. Denies pain. Ears, nose, mouth and throat: Denies headache. Denies sore throat. Cardiovascular: Denies chest pain. Significant for shortness of breath Respiratory: Denies cough. Gastrointestinal: Denies abdominal pain. Denies diarrhea. Denies nausea. Denies vomiting. Musculoskeletal: Denies myalgias. Integumentary: Denies pruritus. Denies rash. Neurological: Denies numbness. Denies weakness. Psychiatric: Denies anxiety. Denies depression. Endocrine: Denies fatigue. Denies weight change. Genitourinary: Denies burning, hematuria, frequency of urination. Hematological: Significant for anemia Past Medical History Past Medical History: Atrial Fibrillation, Coronary Artery Disease (CAD), Chest Pain / Angina, Heart Failure, Diabetes Mellitus, Eye Disorder, Hypertension, Myocardial Infarction (SD), Osteoarthritis (OA), Pneumonia, Renal Disease Additional Past Medical History / Comment(s): NIDDM type II, neuropathy bilateral feet, 01-03-14 [place]/cardiac arrest/resp failure/intubation, UTIs, past L eye retinal bleed with surgery. Last Myocardial Infarction Date:: 01-03-14 History of Any Multi-Drug Resistant Organisms: None Reported Past Surgical History: Heart Catheterization, Heart Catheterization With Stent Additional Past Surgical History / Comment(s): Stent RCA 10-27-14, stent LAD 02/14/2019, L retinal bleed with surgery, bilateral cataract removal/lens implants, colonoscopy Past Anesthesia/Blood Transfusion Reactions: No Reported Reaction Date of Last Stent Placement:: 2013 Past Psychological History: No Psychological Hx Reported Smoking Status: Former smoker - Past Family History Father Family Medical History: Cancer, Diabetes Mellitus Additional Family Medical History / Comment(s): age 70 from lung cancer Mother Family Medical History: COPD Additional Family Medical History / Comment(s): age 83 emphysema Medications and Allergies Home Medications Medication Instructions Recorded Confirmed Type Aspirin 81 mg PO DAILY #30 chew 07/01/19 04/01/21 Rx Cholecalciferol [Vitamin D3 (25 50 mcg PO DAILY 04/14/20 04/01/21 History Mcg = 1000 Iu)] Metoprolol Tartrate [Lopressor] 50 mg PO BID 05/04/20 04/01/21 History Insulin Glargine,Hum.rec.anlog 22 unit SQ HS 07/19/20 04/01/21 History [Lantus Solostar Pen] Enalapril Maleate [Vasotec] 5 mg PO BID 08/17/20 04/01/21 History Brimonidine Tartrate/Timolol 1 drop LEFT EYE TID 03/14/21 04/01/21 History [Combigan 0.2%-0.5% Eye Drops] Dorzolamide 2% [Trusopt 2%] 1 drop LEFT EYE TID 03/14/21 04/01/21 History Latanoprost/Pf [Latanoprost 0.005% 1 drop LEFT EYE QAM 03/14/21 04/01/21 History Eye Drop] Amiodarone HCl [Pacerone] 1 tab PO DAILY 03/15/21 04/01/21 History Sulfamethoxazole/Trimethoprim 1 tab PO BID 04/01/21 04/01/21 History [Sulfamethoxazole-Tmp Ds Tablet] Allergies Allergy/AdvReac Type Severity Reaction Status Date / Time Corticosteroids Allergy Unknown Unknown Verified 04/01/21 08:07 (Glucocorticoids) egg Allergy Unknown Unknown Verified 04/01/21 08:07 azithromycin [From Zithromax] Allergy Anaphylaxis Verified 04/01/21 08:07 banana Allergy Unknown Verified 04/01/21 08:07 carisoprodol [From Soma] Allergy Unknown Verified 04/01/21 08:07 ciprofloxacin [From Cipro] Allergy Unknown Verified 04/01/21 08:07 cortisone [Cortisone] Allergy Unknown Verified 04/01/21 08:07 cyclobenzaprine HCl Allergy Unknown Verified 04/01/21 08:07 [From Flexeril] latex Allergy Unknown Verified 04/01/21 08:07 Latex, Natural Rubber Allergy Unknown Verified 04/01/21 08:07 levofloxacin [From Levaquin] Allergy Anaphylaxis Verified 04/01/21 08:07 Penicillins Allergy Anaphylaxis Verified 04/01/21 08:07 Physical Exam Vitals: Vital Signs Temp Pulse Resp BP Pulse Ox 04/01/21 05:47 98.3 F 63 16 138/66 98 Intake and Output 03/31/21 04/01/21 04/01/21 22:59 06:59 14:59 Other: Weight 81.647 kg General: The patient is awake and alert, in no distress, and does not appear acutely ill. Skin: Skin is warm and dry and no rashes or lesions are noted. Eye: Pupils are equal, round and reactive to light, extra-ocular movements are intact; there is normal conjunctiva bilaterally. Ears, nose, mouth and throat: There are moist mucous membranes and no oral lesions. Neck: The neck is supple, there is no tenderness or JVD. Cardiovascular: There is a regular rate and rhythm. no rub or gallop is appreciated. Patient has a systolic murmur at the apex Respiratory: Lungs are clear to auscultation, respirations are non-labored, breath sounds are equal. Gastrointestinal: Soft, non-distended, non-tender abdomen without masses or organomegaly noted. There is no rebound or guarding present. Bowel sounds are unremarkable. Back: There is no tenderness to palpation in the midline. There is no obvious deformity. Musculoskeletal: Normal ROM, no tenderness, There is no pedal edema. There is no calf tenderness or swelling. Extremities: Bilateral moderate leg edema Vascular: Femoral pulse is normal. Posterior tibial pulses are normal .Dorsalis pedis is palpable. Neurological: CN II-XII intact. There are no obvious motor or sensory deficits. Speech is normal. Psychiatric: Cooperative, appropriate mood & affect, normal judgment. Results 04/01/21 05:58 04/01/21 05:58 Cardiac Enzymes 04/01/21 04/01/21 Range/Units 05:58 05:58 AST 19 (14-36) U/L Troponin I <0.012 (0.000-0.034) ng/mL Coagulation 04/01/21 Range/Units 05:58 PT 10.7 (9.0-12.0) sec APTT 20.8 L (22.0-30.0) sec CBC 04/01/21 Range/Units 05:58 WBC 7.8 (3.8-10.6) k/uL RBC 2.50 L (3.80-5.40) m/uL Hgb 7.4 L (11.4-16.0) gm/dL Hct 24.1 L (34.0-46.0) % Plt Count 181 (150-450) k/uL Comprehensive Metabolic Panel 04/01/21 Range/Units 05:58 Sodium 138 (137-145) mmol/L Potassium 5.1 (3.5-5.1) mmol/L Chloride 112 H (98-107) mmol/L Carbon Dioxide 17 L (22-30) mmol/L BUN 47 H (7-17) mg/dL Creatinine 3.04 H (0.52-1.04) mg/dL Glucose 155 H (74-99) mg/dL Calcium 8.7 (8.4-10.2) mg/dL AST 19 (14-36) U/L ALT 15 (4-34) U/L Alkaline Phosphatase 96 (38-126) U/L Total Protein 6.0 L (6.3-8.2) g/dL Albumin 3.2 L (3.5-5.0) g/dL Current Medications Generic Name Dose Route Start Last Admin Trade Name Freq PRN Reason Stop Dose Admin Amiodarone HCl 100 mg 04/01/21 09:00 Amiodarone 100 Mg Tab PO DAILY [facility] Aspirin 81 mg 04/01/21 09:00 Aspirin 81 Mg PO DAILY [facility] Brimonidine Tartrate 1 drops 04/01/21 09:00 Brimonidine Tartrate 0.2% Drops 5 Ml Btl LEFT EYE TID GARRY Cholecalciferol 50 mcg 04/01/21 09:00 Cholecalciferol 25 Mcg (1000 Iu) Tablet PO DAILY GARRY Dorzolamide HCl 1 drops 04/01/21 09:00 Dorzolamide Hcl 2% Drops 10 Ml Btl LEFT EYE TID [facility] Furosemide 40 mg 04/01/21 08:00 Furosemide 10 Mg/Ml 4 Ml Vial IV Q12H [facility] Insulin Detemir 22 unit 04/01/21 21:00 Insulin Detemir (Levemir) 100 Unit/Ml Syr SQ HS [facility] Latanoprost 1 drops 04/01/21 09:00 Latanoprost 0.005% Ophth Drops 2.5 Ml Btl LEFT EYE QAM [facility] Lisinopril 20 mg 04/01/21 09:00 Lisinopril 20 Mg Tab PO BID [facility] Magnesium Hydroxide 2,400 mg 04/01/21 08:42 Magnesium Hydroxide 2,400 Mg/10 Ml Cup PO BID PRN Constipation Metoprolol Tartrate 50 mg 04/01/21 09:00 Metoprolol Tartrate 50 Mg Tab PO BID [facility] Timolol Maleate 1 drops 04/01/21 09:00 Timolol 0.5% Ophth Drops 5 Ml Btl LEFT EYE TID [facility] Intake and Output 03/31/21 04/01/21 04/01/21 22:59 06:59 14:59 Other: Weight 81.647 kg 04/01/21 05:58 04/01/21 05:58 Assessment and Plan Assessment: Acute exacerbation of chronic diastolic heart failure History of renal failure Paroxysmal atrial fibrillation Coronary artery disease status post angioplasty Anemia secondary to blood loss Plan: Treatment the patient with intravenous diuretics Patient is not a candidate for anticoagulation Reviewed echo findings Hopefully home over the next 24-48 hours
[2021-04-01] MEDS: FUROSEMIDE 10 MG/ML 4 ML VIAL IV SCH ×2 (10:16→20:53)
[2021-04-01] MEDS: ASPIRIN 81 MG PO SCH (10:19)
[2021-04-01] MEDS: METOPROLOL TARTRATE 50 MG TAB PO SCH ×2 (10:20→20:53)
[2021-04-01] MEDS: CHOLECALCIFEROL 25 MCG (1000 IU) TABLET PO SCH (10:20)
[2021-04-01] MEDS: lisinopriL 20 MG TAB PO SCH ×2 (10:20→20:53)
--- NOTE | 2021-04-01 11:51 | P.NPCON ---
History of Present Illness - Reason for Consult acute renal failure, chronic renal failure - History of Present Illness Reason for patient: Acute kidney injury on chronic kidney disease History of present illness: Patient is a 75-year-old female seen in renal consultation for acute kidney injury on chronic kidney disease. Patient has chronic kidney disease stage IIIB with baseline creatinine near 1.5 from August 2020. Patient did develop an episode of acute kidney injury on his ear this month. At that time the creatinine peaked at 4 and was down to 2.26 as of 03/17/2021. Creatinine this admission was 3.04. Patient states her Lasix was discontinued by her molding manager about 10 days ago. Since then she has developed progressively worsening of shortness of breath. She denies cough. No chest pain. She does have history of diastolic CHF and moderate to severe mitral and tricuspid regurgitation as well as pulmonary hypertension. She has history of coronary artery disease status post 2 stents. She has long-standing history of diabetes. A renal ultrasound from earlier this month showed no evidence of hydronephrosis. She denies use of nonsteroidals. No vomiting or diarrhea. No hematuria. Chest x-rays it is of a fluid overload. She is currently on IV Lasix. Vital signs are stable. General: The patient appeared well nourished and normally developed. HEENT: Head exam is unremarkable. LUNGS: Breath sounds decreased. HEART: Rate and Rhythm are regular. ABDOMEN: Soft, obese. EXTREMITITES: 1+ edema. Past Medical History Past Medical History: Atrial Fibrillation, Coronary Artery Disease (CAD), Chest Pain / Angina, Heart Failure, Diabetes Mellitus, Eye Disorder, Hypertension, Myocardial Infarction (PR), Osteoarthritis (OA), Pneumonia, Renal Disease Additional Past Medical History / Comment(s): NIDDM type II, neuropathy bilateral feet, 01-03-14 PR/cardiac arrest/resp failure/intubation, UTIs, past L eye retinal bleed with surgery. Last Myocardial Infarction Date:: 01-03-14 History of Any Multi-Drug Resistant Organisms: None Reported Past Surgical History: Heart Catheterization, Heart Catheterization With Stent Additional Past Surgical History / Comment(s): Stent RCA 01-07-14, stent LAD 02/14/2019, L retinal bleed with surgery, bilateral cataract removal/lens implants, colonoscopy Past Anesthesia/Blood Transfusion Reactions: No Reported Reaction Date of Last Stent Placement:: 2013 Past Psychological History: No Psychological Hx Reported Smoking Status: Former smoker - Past Family History Father Family Medical History: Cancer, Diabetes Mellitus Additional Family Medical History / Comment(s): age 70 from lung cancer Mother Family Medical History: COPD Additional Family Medical History / Comment(s): age 83 emphysema Medications and Allergies Home Medications Medication Instructions Recorded Confirmed Type Aspirin 81 mg PO DAILY #30 chew 07/01/19 04/01/21 Rx Cholecalciferol [Vitamin D3 (25 50 mcg PO DAILY 04/14/20 04/01/21 History Mcg = 1000 Iu)] Metoprolol Tartrate [Lopressor] 50 mg PO BID 05/04/20 04/01/21 History Insulin Glargine,Hum.rec.anlog 22 unit SQ HS 07/19/20 04/01/21 History [Lantus Solostar Pen] Enalapril Maleate [Vasotec] 5 mg PO BID 08/17/20 04/01/21 History Brimonidine Tartrate/Timolol 1 drop LEFT EYE TID 03/14/21 04/01/21 History [Combigan 0.2%-0.5% Eye Drops] Dorzolamide 2% [Trusopt 2%] 1 drop LEFT EYE TID 03/14/21 04/01/21 History Latanoprost/Pf [Latanoprost 0.005% 1 drop LEFT EYE QAM 03/14/21 04/01/21 History Eye Drop] Amiodarone HCl [Pacerone] 1 tab PO DAILY 03/15/21 04/01/21 History Sulfamethoxazole/Trimethoprim 1 tab PO BID 04/01/21 04/01/21 History [Sulfamethoxazole-Tmp Ds Tablet] Allergies Allergy/AdvReac Type Severity Reaction Status Date / Time Corticosteroids Allergy Unknown Unknown Verified 04/01/21 08:07 (Glucocorticoids) egg Allergy Unknown Unknown Verified 04/01/21 08:07 azithromycin [From Zithromax] Allergy Anaphylaxis Verified 04/01/21 08:07 banana Allergy Unknown Verified 04/01/21 08:07 carisoprodol [From Soma] Allergy Unknown Verified 04/01/21 08:07 ciprofloxacin [From Cipro] Allergy Unknown Verified 04/01/21 08:07 cortisone [Cortisone] Allergy Unknown Verified 04/01/21 08:07 cyclobenzaprine HCl Allergy Unknown Verified 04/01/21 08:07 [From Flexeril] latex Allergy Unknown Verified 04/01/21 08:07 Latex, Natural Rubber Allergy Unknown Verified 04/01/21 08:07 levofloxacin [From Levaquin] Allergy Anaphylaxis Verified 04/01/21 08:07 Penicillins Allergy Anaphylaxis Verified 04/01/21 08:07 Physical Exam Vitals: Vital Signs Temp Pulse Resp BP Pulse Ox 04/01/21 11:00 98.3 F 63 16 133/55 99 04/01/21 10:23 80 133/55 96 04/01/21 05:47 98.3 F 63 16 138/66 98 Intake and Output 03/31/21 04/01/21 04/01/21 22:59 06:59 14:59 Other: Weight 81.647 kg Results - Lab Results Most recent lab results Calcium 8.7 mg/dL (8.4-10.2) 04/01/21 05:58 Magnesium 2.7 mg/dL (1.6-2.3) H 04/01/21 05:58 04/01/21 05:58 04/01/21 05:58 Assessment and Plan Plan: Assessment: 1. Acute kidney injury secondary to ATN secondary to cardiorenal syndrome. Creatinine 3.04 today. Rule out urinary retention. Ultrasound from earlier this month revealed no evidence of hydronephrosis. 2. Chronic kidney disease stage IIIB secondary to diabetic kidney disease with baseline creatinine near 1.5 from August 2020. 3. Volume overload. 4. Acute on chronic diastolic CHF and moderate to severe mitral and tricuspid regurgitation and pulmonary hypertension. 5. Diabetes mellitus. 6. Metabolic acidosis secondary to acute kidney injury. 7. Anemia of chronic kidney disease. Rule out iron deficiency. 8. Coronary artery disease. Plan: Maintain IV Lasix. Check bladder scan to rule out urinary retention. Check urinalysis. 1500 mL fluid restriction. Avoid nephrotoxins. Check iron studies. Add oral bicarbonate. Thank you for the consultation. I will continue to follow the patient with you during her hospital stay.
[2021-04-01] MEDS: DORZOLAMIDE HCL 2% DROPS 10 ML BTL LEFT EYE SCH ×3 (12:54→20:54)
[2021-04-01] MEDS: BRIMONIDINE TARTRATE 0.2% DROPS 5 ML BTL LEFT EYE SCH ×3 (12:54→20:54)
[2021-04-01] MEDS: LATANOPROST 0.005% OPHTH DROPS 2.5 ML BTL LEFT EYE SCH (12:54)
[2021-04-01] MEDS: TIMOLOL 0.5% OPHTH DROPS 5 ML BTL LEFT EYE SCH ×3 (12:55→20:54)
[2021-04-01] MEDS: SODIUM BICARBONATE TAB 650 MG TAB PO SCH ×3 (12:59→21:13)
[2021-04-01 14:41] LABS: Appearance,Urine Clear (Clear); Bilirubin,Urine Negative (Negative); Blood,Urine Negative (Negative); Color,Urine Light Yellow; Glucose,Urine (UA) Negative (Negative); Ketones,Urine Negative (Negative); Leukocyte Esterase,Urine Negative (Negative); Nitrite,Urine Negative (Negative); Protein,Urine Negative (Negative); Specific Gravity,Urine 1.009 (1.001-1.035); Urobilinogen,Urine <2.0 mg/dL (<2.0)
[2021-04-01 17:30] LABS: Glucose,Whole Blood 168 mg/dL (75-99)
[2021-04-01] MEDS: INSULIN ASPART (NovoLOG) 100 UNIT/ML VIAL SQ SCH ×2 (17:35→20:44)
--- NOTE | 2021-04-01 19:44 | P.HPIM ---
History of Present Illness H&P Date: 04/01/21 Chief Complaint: PEREZ and constipation This is a history and physical on a 75-year-old white female who actually saw him yesterday in the office but throughout the night she became more shortness of breath. She has an underlying history of diastolic heart failure with paroxy smal atrial fibrillation and chronic anemia of multifactorial disease. The patient is admitted secondary to worsening shortness of breath with elevated B natruretic peptide. Nephrology and cardiology consult.Due to significant acute kidney injury, Lasix and spironolactone were temporarily removed. Review of Systems Constitutional: Denies chills, Denies fever Ears, nose, mouth and throat: Denies headache, Denies sore throat Cardiovascular: Reports leg edema Respiratory: Denies cough Gastrointestinal: Denies abdominal pain, Denies diarrhea, Denies nausea, Denies vomiting Genitourinary: Denies dysuria, Denies hematuria Past Medical History Past Medical History: Atrial Fibrillation, Coronary Artery Disease (CAD), Chest Pain / Angina, Heart Failure, Diabetes Mellitus, Eye Disorder, Hypertension, Myocardial Infarction (ND), Osteoarthritis (OA), Pneumonia, Renal Disease Additional Past Medical History / Comment(s): NIDDM type II, neuropathy bilateral feet, 01-03-14 [place]/cardiac arrest/resp failure/intubation, UTIs, past L eye retinal bleed with surgery. Last Myocardial Infarction Date:: 01-03-14 History of Any Multi-Drug Resistant Organisms: None Reported Past Surgical History: Heart Catheterization, Heart Catheterization With Stent Additional Past Surgical History / Comment(s): Stent RCA 01-07-14, stent LAD 02/14/2019, L retinal bleed with surgery, bilateral cataract removal/lens implants, colonoscopy Past Anesthesia/Blood Transfusion Reactions: No Reported Reaction Date of Last Stent Placement:: 2013 Past Psychological History: No Psychological Hx Reported Smoking Status: Former smoker - Past Family History Father Family Medical History: Cancer, Diabetes Mellitus Additional Family Medical History / Comment(s): age 70 from lung cancer Mother Family Medical History: COPD Additional Family Medical History / Comment(s): age 83 emphysema Medications and Allergies Home Medications Medication Instructions Recorded Confirmed Type Aspirin 81 mg PO DAILY #30 chew 07/01/19 04/01/21 Rx Cholecalciferol [Vitamin D3 (25 50 mcg PO DAILY 04/14/20 04/01/21 History Mcg = 1000 Iu)] Metoprolol Tartrate [Lopressor] 50 mg PO BID 05/04/20 04/01/21 History Insulin Glargine,Hum.rec.anlog 22 unit SQ HS 07/19/20 04/01/21 History [Lantus Solostar Pen] Enalapril Maleate [Vasotec] 5 mg PO BID 08/17/20 04/01/21 History Brimonidine Tartrate/Timolol 1 drop LEFT EYE TID 03/14/21 04/01/21 History [Combigan 0.2%-0.5% Eye Drops] Dorzolamide 2% [Trusopt 2%] 1 drop LEFT EYE TID 03/14/21 04/01/21 History Latanoprost/Pf [Latanoprost 0.005% 1 drop LEFT EYE QAM 03/14/21 04/01/21 History Eye Drop] Amiodarone HCl [Pacerone] 1 tab PO DAILY 03/15/21 04/01/21 History Sulfamethoxazole/Trimethoprim 1 tab PO BID 04/01/21 04/01/21 History [Sulfamethoxazole-Tmp Ds Tablet] Allergies Allergy/AdvReac Type Severity Reaction Status Date / Time Corticosteroids Allergy Unknown Unknown Verified 04/01/21 08:07 (Glucocorticoids) egg Allergy Unknown Unknown Verified 04/01/21 08:07 azithromycin [From Zithromax] Allergy Anaphylaxis Verified 04/01/21 08:07 banana Allergy Unknown Verified 04/01/21 08:07 carisoprodol [From Soma] Allergy Unknown Verified 04/01/21 08:07 ciprofloxacin [From Cipro] Allergy Unknown Verified 04/01/21 08:07 cortisone [Cortisone] Allergy Unknown Verified 04/01/21 08:07 cyclobenzaprine HCl Allergy Unknown Verified 04/01/21 08:07 [From Flexeril] latex Allergy Unknown Verified 04/01/21 08:07 Latex, Natural Rubber Allergy Unknown Verified 04/01/21 08:07 levofloxacin [From Levaquin] Allergy Anaphylaxis Verified 04/01/21 08:07 Penicillins Allergy Anaphylaxis Verified 04/01/21 08:07 Physical Exam Vitals: Vital Signs Temp Pulse Resp BP Pulse Ox 04/01/21 15:07 64 16 116/71 97 04/01/21 11:00 98.3 F 63 16 133/55 99 04/01/21 10:23 80 133/55 96 04/01/21 05:47 98.3 F 63 16 138/66 98 Intake and Output 04/01/21 04/01/21 04/01/21 06:59 14:59 22:59 Intake Total 800 Output Total 1000 Balance -1000 800 Intake: Oral 800 Output: Urine 1000 Uretheral ([facility]) 1000 Other: Weight 81.647 kg - Constitutional General appearance: cooperative, no no acute distress - EENT Eyes: EOMI - Neck Neck: no lymphadenopathy - Respiratory Respiratory: bilateral: diminished - Cardiovascular Rhythm: regular Heart sounds: normal: S1, S2 Abnormal Heart Sounds: no S3 Gallop - Gastrointestinal General gastrointestinal: soft, no splenomegaly, no tenderness - Integumentary Integumentary: no cellulitis - Psychiatric Psychiatric: A&O x's 3, appropriate affect Results CBC & Chem 7: 04/01/21 05:58 04/01/21 05:58 Labs: Abnormal Lab Results - Last 24 Hours (Table) 04/01/21 04/01/21 04/01/21 Range/Units 05:58 05:58 05:58 RBC 2.50 L (3.80-5.40) m/uL Hgb 7.4 L (11.4-16.0) gm/dL Hct 24.1 L (34.0-46.0) % MCHC 30.7 L (31.0-37.0) g/dL APTT 20.8 L (22.0-30.0) sec Chloride 112 H (98-107) mmol/L Carbon Dioxide 17 L (22-30) mmol/L BUN 47 H (7-17) mg/dL Creatinine 3.04 H (0.52-1.04) mg/dL Glucose 155 H (74-99) mg/dL POC Glucose (mg/dL) (75-99) mg/dL Magnesium 2.7 H (1.6-2.3) mg/dL Total Protein 6.0 L (6.3-8.2) g/dL Albumin 3.2 L (3.5-5.0) g/dL 04/01/21 04/01/21 Range/Units 07:30 17:22 RBC (3.80-5.40) m/uL Hgb (11.4-16.0) gm/dL Hct (34.0-46.0) % MCHC (31.0-37.0) g/dL APTT (22.0-30.0) sec Chloride (98-107) mmol/L Carbon Dioxide (22-30) mmol/L BUN (7-17) mg/dL Creatinine (0.52-1.04) mg/dL Glucose (74-99) mg/dL POC Glucose (mg/dL) 157 H 168 H (75-99) mg/dL Magnesium (1.6-2.3) mg/dL Total Protein (6.3-8.2) g/dL Albumin (3.5-5.0) g/dL Assessment and Plan (1) Acute on chronic renal failure Current Visit: Yes Status: Acute Code(s): N17.9 - ACUTE KIDNEY FAILURE, UNSPECIFIED; N18.9 - CHRONIC KIDNEY DISEASE, UNSPECIFIED SNOMED Code(s): 276602273 (2) Acute pulmonary edema Current Visit: Yes Status: Acute Code(s): J81.0 - ACUTE PULMONARY EDEMA SNOMED Code(s): 86994801 (3) CHF exacerbation Current Visit: Yes Status: Acute Code(s): I50.9 - HEART FAILURE, UNSPECIFIED SNOMED Code(s): 627143699 (4) Atrial fibrillation Current Visit: No Status: Acute Code(s): I48.91 - UNSPECIFIED ATRIAL F IBRILLATION SNOMED Code(s): 51562338 (5) Insulin dependent type 2 diabetes mellitus Current Visit: No Status: Acute Code(s): E11.9 - TYPE 2 DIABETES MELLITUS WITHOUT COMPLICATIONS; Z79.4 - MENTAL HEALTH PRACTITIONER (CURRENT) USE OF INSULIN SNOMED Code(s): 190894552 (6) Readmission after hospitalization within last 30 days Current Visit: No Status: Acute Code(s): KNV0164 - SNOMED Code(s): 526888369 (7) Weakness Current Visit: No Status: Acute Code(s): R53.1 - WEAKNESS SNOMED Code(s): 82554173 Plan: Continue appropriate diuresis. Check CMP in the a.m. Reconcile medications. Milk of magnesia for constipation. We will continue to follow but prognosis is guarded. Time with Patient: Greater than 30
[2021-04-01 20:39] LABS: Glucose,Whole Blood 128 mg/dL (75-99)
[2021-04-01 20:43] LABS: % Iron Saturation 14.4 (12.00-45.00)
[2021-04-01] MEDS: AMIODARONE 100 MG TAB PO SCH (21:14)
[2021-04-01] MEDS: INSULIN DETEMIR (LEVEMIR) 100 UNIT/ML SYR SQ SCH (22:21)
[2021-04-02] MEDS: INSULIN ASPART (NovoLOG) 100 UNIT/ML VIAL SQ SCH ×4 (06:46→21:56)
--- NOTE | 2021-04-02 08:08 | P.PN ---
Subjective Progress Note Date: 04/02/21 Principal diagnosis: Acute on chronic congestive heart failure The patient is admitted essentially for significant problems related to heart failure and renal failure. Multifactorial kidney failure the patient has chronic anemia. No voiding symptoms treated with diuresis, she states she feels much more energetic this morning. We'll continue to diuresis today. Objective - Vital Signs Vital signs: Vital Signs Temp 98.1 F 04/02/21 00:00 Pulse 63 04/02/21 03:56 Resp 18 04/02/21 03:56 BP 123/56 04/02/21 03:56 Pulse Ox 100 04/02/21 03:56 Intake & Output 04/01/21 04/02/21 04/02/21 18:59 06:59 18:59 Intake Total 800 Output Total 1000 800 Balance -200 -800 Weight 81.647 kg Intake: Oral 800 Output: Urine 1000 800 Uretheral ([place]) 1000 Other: Voiding Method Indwelling Catheter # Bowel Movements 3 - Constitutional General appearance: Present: no acute distress - EENT Eyes: Absent: abnormal pupil - Neck Neck: Absent: lymphadenopathy - Respiratory Respiratory: bilateral: diminished - Cardiovascular Rhythm: regular Heart sounds: normal: S1, S2 Abnormal Heart Sounds: Absent: S3 Gallop - Gastrointestinal General gastrointestinal: Present: soft. Absent: tenderness - Integumentary Integumentary: Absent: cellulitis - Psychiatric Psychiatric: Present: A&O x's 3 - Labs CBC & Chem 7: 04/01/21 05:58 04/01/21 05:58 Labs: Abnormal Lab Results - Last 24 Hours (Table) 04/01/21 04/01/21 04/01/21 Range/Units 05:58 17:22 20:38 POC Glucose (mg/dL) 168 H 128 H (75-99) mg/dL Iron 40 L (50-170) ug/dL Transferrin 196.0 L (204.0-354.0) mg/dL Assessment and Plan (1) Acute on chronic renal failure Current Visit: Yes Status: Acute Code(s): N17.9 - ACUTE KIDNEY FAILURE, UNSPECIFIED; N18.9 - CHRONIC KIDNEY DISEASE, UNSPECIFIED SNOMED Code(s): 533276284 (2) Acute pulmonary edema Current Visit: Yes Status: Acute Code(s): J81.0 - ACUTE PULMONARY EDEMA SNOMED Code(s): 66864010 (3) CHF exacerbation Current Visit: Yes Status: Acute Code(s): I50.9 - HEART FAILURE, UNSPECIFIED SNOMED Code(s): 430970142 (4) Atrial fibrillation Current Visit: No Status: Acute Code(s): I48.91 - UNSPECIFIED ATRIAL FIBRILLATION SNOMED Code(s): 97446043 (5) Insulin dependent type 2 diabetes mellitus Current Visit: No Status: Acute Code(s): E11.9 - TYPE 2 DIABETES MELLITUS WITHOUT COMPLICATIONS; Z79.4 - SHELTER (CURRENT) USE OF INSULIN SNOMED Code(s): 221074152 (6) Readmission after hospitalization within last 30 days Current Visit: No Status: Acute Code(s): GJO0048 - SNOMED Code(s): 120811529 (7) Weakness Current Visit: No Status: Acute Code(s): R53.1 - WEAKNESS SNOMED Code(s): 21823681 Plan: Continue appropriate diuresis. Check CMP and CBC in a.m. Appreciate cardiology and nephrology input. Prognosis is guarded secondary to her multiple comorbidities. See orders otherwise
[2021-04-02] MEDS: BRIMONIDINE TARTRATE 0.2% DROPS 5 ML BTL LEFT EYE SCH ×3 (09:19→22:19)
[2021-04-02] MEDS: METOPROLOL TARTRATE 50 MG TAB PO SCH ×2 (09:27→21:56)
[2021-04-02] MEDS: CHOLECALCIFEROL 25 MCG (1000 IU) TABLET PO SCH (09:27)
[2021-04-02] MEDS: FUROSEMIDE 10 MG/ML 4 ML VIAL IV SCH ×2 (09:27→21:55)
[2021-04-02] MEDS: ASPIRIN 81 MG PO SCH (09:27)
[2021-04-02] MEDS: lisinopriL 20 MG TAB PO SCH ×2 (09:28→21:56)
[2021-04-02] MEDS: DORZOLAMIDE HCL 2% DROPS 10 ML BTL LEFT EYE SCH ×3 (09:28→22:19)
[2021-04-02] MEDS: SODIUM BICARBONATE TAB 650 MG TAB PO SCH ×3 (09:28→21:56)
[2021-04-02] MEDS: TIMOLOL 0.5% OPHTH DROPS 5 ML BTL LEFT EYE SCH ×3 (09:30→22:19)
[2021-04-02] MEDS: LATANOPROST 0.005% OPHTH DROPS 2.5 ML BTL LEFT EYE SCH (09:33)
--- NOTE | 2021-04-02 09:37 | P.PN ---
Subjective Patient is seen in follow-up for acute kidney injury on chronic kidney disease. Morning labs pending. On IV Lasix. Edema improving. Denies chest pain or shortness of breath. On room air. Vital signs are stable. General: The patient appeared well nourished and normally developed. HEENT: Head exam is unremarkable. LUNGS: Breath sounds decreased. HEART: Rate and Rhythm are regular. ABDOMEN: Soft, no distention. Obese. EXTREMITITES: 1+ edema. Objective - Vital Signs Vital signs: Vital Signs Temp 98.1 F 04/02/21 00:00 Pulse 63 04/02/21 03:56 Resp 18 04/02/21 03:56 BP 123/56 04/02/21 03:56 Pulse Ox 100 04/02/21 08:09 Intake & Output 04/01/21 04/02/21 04/02/21 18:59 06:59 18:59 Intake Total 800 118 Output Total 1000 800 Balance -200 -800 118 Weight 81.647 kg Intake: Oral 800 118 Output: Urine 1000 800 Uretheral ([place]) 1000 Other: Voiding Method Indwelling Catheter # Bowel Movements 3 - Labs CBC & Chem 7: 04/01/21 05:58 04/01/21 05:58 Labs: Abnormal Lab Results - Last 24 Hours (Table) 04/01/21 04/01/21 04/01/21 Range/Units 05:58 17:22 20:38 POC Glucose (mg/dL) 168 H 128 H (75-99) mg/dL Iron 40 L (50-170) ug/dL Transferrin 196.0 L (204.0-354.0) mg/dL Assessment and Plan Plan: Assessment: 1. Acute kidney injury secondary to ATN secondary to cardiorenal syndrome. Creatinine 3.04 on admission. Ultrasound from earlier this month revealed no evidence of hydronephrosis. UA benign. 2. Chronic kidney disease stage IIIB secondary to nephrosclerosis and diabetic kidney disease with baseline creatinine near 1.5 from August 2020. 3. Volume overload. Improving with diuresis. 4. Acute on chronic diastolic CHF and moderate to severe mitral and tricuspid regurgitation and pulmonary hypertension. 5. Diabetes mellitus. 6. Metabolic acidosis secondary to acute kidney injury. On oral bicarb. 7. Anemia of chronic kidney disease. Iron deficiency noted. 8. Coronary artery disease. Plan: Maintain IV Lasix - transition to oral Lasix 40 mg twice daily upon discharge. 1500 mL fluid restriction. Avoid nephrotoxins. Add IV iron. Follow-up morning labs. Advised the patient to follow up outpatient 1 week post discharge. To call if edema worsens again is more than 3 pounds in 1 week duration.
[2021-04-02 09:40] LABS: Albumin 3.5 g/dL (3.5-5.0); Calcium 8.8 mg/dL (8.4-10.2); Potassium 5.1 mmol/L (3.5-5.1); Total Bilirubin 0.8 mg/dL (0.2-1.3); Total Protein 6.4 g/dL (6.3-8.2)
[2021-04-02 09:49] LABS: Glucose,Whole Blood 78 mg/dL (75-99)
[2021-04-02 09:49] LABS: HCT 29.6 % (34.0-46.0); HGB 8.8 gm/dL (11.4-16.0); Hypochromasia Marked; MCH 30.1 pg (25.0-35.0); MCHC 29.7 g/dL (31.0-37.0); Macrocytosis Slight; Mean Platelet Volume 9.2; Platelet Count 171 k/uL (150-450); RBC 2.92 m/uL (3.80-5.40); RDW 14.9 % (11.5-15.5)
[2021-04-02 09:49] LABS: Glucose,Whole Blood 41 mg/dL (75-99)
[2021-04-02 09:49] LABS: Glucose,Whole Blood 51 mg/dL (75-99)
[2021-04-02 09:49] LABS: Glucose,Whole Blood 61 mg/dL (75-99)
[2021-04-02 09:51] LABS: MCV 101.4 fL (80.0-100.0)
[2021-04-02 10:30] VITALS: BMI 35.2
[2021-04-02] MEDS: SODIUM FERRIC GLUCONAT-SUCROSE 125 MG in SODIUM CHLORIDE 0.9% 100 ML IVPB SCH (11:42)
--- NOTE | 2021-04-02 11:54 | P.PN ---
Subjective This is a 75-year-old female past medical history of chronic diastolic heart failure, paroxysmal atrial fibrillation not on anticoagulation due to increase in frequent nosebleeds, coronary artery disease status post PCI to the mid LAD in 2019 and PCI mid RCA in 2013, dyslipidemia, hypertension, type 2 diabetes. She follows in the office with Dr. Chavez. We are consultation for congestive heart failure. She presents to the emergency department with complaints of worsening shortness of breath, generalized fatigue, bilateral lower extremity edema. Her diuretics were on hold outpatient due to renal insufficiency. Patient was started on IV Lasix. Her echocardiogram on 03/16/21 revealed EF 55-60%, moderate to severe mitral regurgitation, moderate tricuspid regurgitation, moderate pulmonary hypertension RVSP 48mmHg. Patient seen and examined at bedside, no acute distress. She states her breathing has significantly improved but still feel short of breath and significant swelling her bilateral arms and bilateral lower extremities. She d enies any chest pain. Patient with 1.8 L urine output over the past 24 hours. Labs, WBC 9.0, hemoglobin 8.8, platelets 171, sodium 137, potassium 5.1, BUN 45, serum creatine 2.8. She is currently maintained on amiodarone 100 mg nightly, aspirin 81 mg daily, IV Lasix 40 mg twice a day, lisinopril 20 mg twice a day, metoprolol tartrate 50 mg twice a day GENERAL: Well-appearing, well-nourished and in no acute distress. NECK: Supple without JVD or thyromegaly. LUNGS: Breath sounds mild crackles in the bases to auscultation bilaterally. Respiration equal and unlabored. No wheezes, rales or rhonchi. HEART: Regular rate and rhythm without murmurs, rubs or gallops. S1 and S2 heard. EXTREMITIES: Normal range of motion, 2+ bilateral lower and upper extremity edema. No clubbing or cyanosis. Peripheral pulses intact. ASSESSMENT Acute on chronic diastolic heart failure Chronic kidney disease Paroxysmal atrial fibrillation not on anticoagulation due to increase in frequent nosebleeds Coronary artery disease status post PCI to the mid LAD in 2019 and PCI mid RCA in 2013 Dyslipidemia Hypertension Type 2 diabetes Mitral regurgitation Pulmonary hypertension PLAN We will continue IV Lasix 40mg BID Monitor I/Osx, daily weights, renal function and electrolytes Continue aspirin, lisinopril and metoprolol Hopefully transition to PO Lasix in the next 24-48 hours Further recommendations based on clinical course Nurse Practitioner note has been reviewed, I agree with a documented findings and plan of care. Patient was seen and examined. Objective - Vital Signs Vital signs: Vital Signs Temp 97.7 F 04/02/21 08:00 Pulse 61 04/02/21 08:00 Resp 19 04/02/21 08:00 BP 133/59 04/02/21 08:00 Pulse Ox 100 04/02/21 08:09 Intake & Output 04/01/21 04/02/21 04/02/21 18:59 06:59 18:59 Intake Total 800 118 Output Total 1935 765 4815 Balance -200 800 -882 Weight 81.647 kg 81.647 kg Intake: Oral 800 118 Output: Urine [id number] Uretheral ([facility]) 1000 Other: Voiding Method Indwelling Catheter # Bowel Movements 3 1 - Labs CBC & Chem 7: 04/02/21 08:42 04/02/21 08:42 Labs: Abnormal Lab Results - Last 24 Hours (Table) 04/01/21 04/01/21 04/01/21 Range/Units 05:58 17:22 20:38 RBC (3.80-5.40) m/uL Hgb (11.4-16.0) gm/dL Hct (34.0-46.0) % MCV (80.0-100.0) fL MCHC (31.0-37.0) g/dL Chloride (98-107) mmol/L Carbon Dioxide (22-30) mmol/L BUN (7-17) mg/dL Creatinine (0.52-1.04) mg/dL Glucose (74-99) mg/dL POC Glucose (mg/dL) 168 H 128 H (75-99) mg/dL Iron 40 L (50-170) ug/dL Transferrin 196.0 L (204.0-354.0) mg/dL 04/02/21 04/02/21 04/02/21 Range/Units 06:15 06:33 06:51 RBC (3.80-5.40) m/uL Hgb (11.4-16.0) gm/dL Hct (34.0-46.0) % MCV (80.0-100.0) fL MCHC (31.0-37.0) g/dL Chloride (98-107) mmol/L Carbon Dioxide (22-30) mmol/L BUN (7-17) mg/dL Creatinine (0.52-1.04) mg/dL Glucose (74-99) mg/dL POC Glucose (mg/dL) 41 L 51 L 61 L (75-99) mg/dL Iron (50-170) ug/dL Transferrin (204.0-354.0) mg/dL 04/02/21 04/02/21 Range/Units 08:42 08:42 RBC 2.92 L (3.80-5.40) m/uL Hgb 8.8 L (11.4-16.0) gm/dL Hct 29.6 L (34.0-46.0) % MCV 101.4 H D (80.0-100.0) fL MCHC 29.7 L (31.0-37.0) g/dL Chloride 109 H (98-107) mmol/L Carbon Dioxide 17 L (22-30) mmol/L BUN 45 H (7-17) mg/dL Creatinine 2.83 H (0.52-1.04) mg/dL Glucose 203 H (74-99) mg/dL POC Glucose (mg/dL) (75-99) mg/dL Iron (50-170) ug/dL Transferrin (204.0-354.0) mg/dL
[2021-04-02 11:58] LABS: Glucose,Whole Blood 320 mg/dL (75-99)
[2021-04-02 16:52] LABS: Glucose,Whole Blood 129 mg/dL (75-99)
[2021-04-02 20:15] LABS: Glucose,Whole Blood 143 mg/dL (75-99)
[2021-04-02] MEDS: AMIODARONE 100 MG TAB PO SCH (21:56)
[2021-04-02] MEDS: INSULIN DETEMIR (LEVEMIR) 100 UNIT/ML SYR SQ SCH (21:56)
[2021-04-02 22:00] LABS: Glucose,Whole Blood 222 mg/dL (75-99)
[2021-04-03 04:37] VITALS: RESP 18
[2021-04-03 06:12] LABS: Glucose,Whole Blood 62 mg/dL (75-99)
[2021-04-03 06:29] LABS: Glucose,Whole Blood 56 mg/dL (75-99)
[2021-04-03] MEDS: INSULIN ASPART (NovoLOG) 100 UNIT/ML VIAL SQ SCH ×3 (06:37→16:49)
[2021-04-03 06:46] LABS: Glucose,Whole Blood 65 mg/dL (75-99)
[2021-04-03] MEDS: INSULIN DETEMIR (LEVEMIR) 100 UNIT/ML SYR SQ SCH (06:58)
[2021-04-03 07:05] LABS: Glucose,Whole Blood 88 mg/dL (75-99)
[2021-04-03 08:14] LABS: HGB 9.2 gm/dL (11.4-16.0); Hypochromasia Marked; MCH 29.6 pg (25.0-35.0); MCHC 29.8 g/dL (31.0-37.0); MCV 99.4 fL (80.0-100.0); Macrocytosis Slight; Mean Platelet Volume 8.7; Platelet Count 214 k/uL (150-450); RBC 3.12 m/uL (3.80-5.40); RDW 15.3 % (11.5-15.5); WBC 9.7 k/uL (3.8-10.6)
[2021-04-03 08:27] LABS: Albumin 3.5 g/dL (3.5-5.0); Calcium 9.1 mg/dL (8.4-10.2); Magnesium 2.4 mg/dL (1.6-2.3); Potassium 4.8 mmol/L (3.5-5.1); Total Bilirubin 0.8 mg/dL (0.2-1.3); Total Protein 6.4 g/dL (6.3-8.2)
--- NOTE | 2021-04-03 08:44 | P.PN ---
Subjective Principal diagnosis: Acute on chronic congestive heart failure The patient is admitted essentially for significant problems related to heart failure and renal failure. Multifactorial kidney failure the patient has chronic anemia. No voiding symptoms treated with diuresis, she states she feels much more energetic this morning. We'll continue to diuresis today. She still is on IV Lasix. Objective - Vital Signs Vital signs: Vital Signs Temp 98.6 F 04/03/21 00:00 Pulse 56 L 04/03/21 04:00 Resp 18 04/03/21 04:00 BP 113/49 04/03/21 04:00 Pulse Ox 99 04/03/21 04:00 Intake & Output 04/02/21 04/03/21 04/03/21 18:59 06:59 18:59 Intake Total 358 Output Total 1000 1200 Balance -642 -1200 Weight 81.647 kg 87.4 kg Intake: Oral 358 Output: Urine 1000 1200 Other: Voiding Method Indwelling Catheter Indwelling Catheter # Bowel Movements 1 - Constitutional General appearance: Present: no acute distress - EENT Eyes: Absent: abnormal pupil - Neck Neck: Absent: lymphadenopathy - Respiratory Respiratory: bilateral: CTA - Cardiovascular Rhythm: regular Heart sounds: normal: S1, S2 Abnormal Heart Sounds: Present: S3 Gallop - Gastrointestinal General gastrointestinal: Present: soft. Absent: tenderness - Integumentary Integumentary Comment(s): Improving edema - Psychiatric Psychiatric: Present: A&O x's 3 - Labs CBC & Chem 7: 04/03/21 07:26 04/03/21 07:26 Labs: Abnormal Lab Results - Last 24 Hours (Table) 04/02/21 04/02/21 04/02/21 Range/Units 06:15 06:33 06:51 RBC (3.80-5.40) m/uL Hgb (11.4-16.0) gm/dL Hct (34.0-46.0) % MCV (80.0-100.0) fL MCHC (31.0-37.0) g/dL Chloride (98-107) mmol/L Carbon Dioxide (22-30) mmol/L BUN (7-17) mg/dL Creatinine (0.52-1.04) mg/dL Glucose (74-99) mg/dL POC Glucose (mg/dL) 41 L 51 L 61 L (75-99) mg/dL Magnesium (1.6-2.3) mg/dL 04/02/21 04/02/21 04/02/21 Range/Units 08:42 08:42 11:41 RBC 2.92 L (3.80-5.40) m/uL Hgb 8.8 L (11.4-16.0) gm/dL Hct 29.6 L (34.0-46.0) % MCV 101.4 H D (80.0-100.0) fL MCHC 29.7 L (31.0-37.0) g/dL Chloride 109 H (98-107) mmol/L Carbon Dioxide 17 L (22-30) mmol/L BUN 45 H (7-17) mg/dL Creatinine 2.83 H (0.52-1.04) mg/dL Glucose 203 H (74-99) mg/dL POC Glucose (mg/dL) 320 H (75-99) mg/dL Magnesium (1.6-2.3) mg/dL 04/02/21 04/02/21 04/02/21 Range/Units 16:37 20:14 21:59 RBC (3.80-5.40) m/uL Hgb (11.4-16.0) gm/dL Hct (34.0-46.0) % MCV (80.0-100.0) fL MCHC (31.0-37.0) g/dL Chloride (98-107) mmol/L Carbon Dioxide (22-30) mmol/L BUN (7-17) mg/dL Creatinine (0.52-1.04) mg/dL Glucose (74-99) mg/dL POC Glucose (mg/dL) 129 H 143 H 222 H (75-99) mg/dL Magnesium (1.6-2.3) mg/dL 04/03/21 04/03/21 04/03/21 Range/Units 06:11 06:28 06:45 RBC (3.80-5.40) m/uL Hgb (11.4-16.0) gm/dL Hct (34.0-46.0) % MCV (80.0-100.0) fL MCHC (31.0-37.0) g/dL Chloride (98-107) mmol/L Carbon Dioxide (22-30) mmol/L BUN (7-17) mg/dL Creatinine (0.52-1.04) mg/dL Glucose (74-99) mg/dL POC Glucose (mg/dL) 62 L 56 L 65 L (75-99) mg/dL Magnesium (1.6-2.3) mg/dL 04/03/21 04/03/21 Range/Units 07:26 07:26 RBC 3.12 L (3.80-5.40) m/uL Hgb 9.2 L (11.4-16.0) gm/dL Hct 31.0 L (34.0-46.0) % MCV (80.0-100.0) fL MCHC 29.8 L (31.0-37.0) g/dL Chloride (98-107) mmol/L Carbon Dioxide (22-30) mmol/L BUN 45 H (7-17) mg/dL Creatinine 2.71 H (0.52-1.04) mg/dL Glucose 129 H (74-99) mg/dL POC Glucose (mg/dL) (75-99) mg/dL Magnesium 2.4 H (1.6-2.3) mg/dL Assessment and Plan (1) Acute on chronic renal failure Current Visit: Yes Status: Acute Code(s): N17.9 - ACUTE KIDNEY FAILURE, UNSPECIFIED; N18.9 - CHRONIC KIDNEY DISEASE, UNSPECIFIED SNOMED Code(s): 383503735 (2) Acute pulmonary edema Current Visit: Yes Status: Acute Code(s): J81.0 - ACUTE PULMONARY EDEMA SNOMED Code(s): 05550105 (3) CHF exacerbation Current Visit: Yes Status: Acute Code(s): I50.9 - HEART FAILURE, UNSPECIFIED SNOMED Code(s): 118495829 (4) Atrial fibrillation Current Visit: No Status: Acute Code(s): I48.91 - UNSPECIFIED ATRIAL FIBRILLATION SNOMED Code(s): 33744513 (5) Insulin dependent type 2 diabetes mellitus Current Visit: No Status: Acute Code(s): E11.9 - TYPE 2 DIABETES MELLITUS WITHOUT COMPLICATIONS; Z79.4 - COMPENSATION EXPERT (CURRENT) USE OF INSULIN SNOMED Code(s): 319085098 (6) Readmission after hospitalization within last 30 days Current Visit: No Status: Acute Code(s): JWT8879 - SNOMED Code(s): 146555766 (7) Weakness Current Visit: No Status: Acute Code(s): R53.1 - WEAKNESS SNOMED Code(s): 92127463 Plan: Continue appropriate diuresis. Switch to by mouth Lasix. Appreciate cardiology and nephrology input. Prognosis is guarded secondary to her multiple comorbidities. See orders otherwise Anticipate discharge in the next 24 hours
--- NOTE | 2021-04-03 08:57 | P.PN ---
Subjective Patient is seen in follow-up for acute kidney injury on chronic kidney disease. Renal function stable. On oral Lasix. Edema improving. Denies chest pain or shortness of breath. On room air. Hemodynamically stable. Vital signs are stable. General: The patient appeared well nourished and normally developed. HEENT: Head exam is unremarkable. LUNGS: Breath sounds decreased. HEART: Rate and Rhythm are regular. ABDOMEN: Soft, no distention. Obese. EXTREMITITES: 1+ edema. Objective - Vital Signs Vital signs: Vital Signs Temp 98.6 F 04/03/21 00:00 Pulse 56 L 04/03/21 04:00 Resp 18 04/03/21 04:00 BP 113/49 04/03/21 04:00 Pulse Ox 99 04/03/21 04:00 Intake & Output 04/02/21 04/03/21 04/03/21 18:59 06:59 18:59 Intake Total 358 Output Total 1000 1200 Balance -642 -1200 Weight 81.647 kg 87.4 kg Intake: Oral 358 Output: Urine 1000 1200 Other: Voiding Method Indwelling Catheter Indwelling Catheter # Bowel Movements 1 - Labs CBC & Chem 7: 04/03/21 07:26 04/03/21 07:26 Labs: Abnormal Lab Results - Last 24 Hours (Table) 04/02/21 04/02/21 04/02/21 Range/Units 06:15 06:33 06:51 RBC (3.80-5.40) m/uL Hgb (11.4-16.0) gm/dL Hct (34.0-46.0) % MCV (80.0-100.0) fL MCHC (31.0-37.0) g/dL Chloride (98-107) mmol/L Carbon Dioxide (22-30) mmol/L BUN (7-17) mg/dL Creatinine (0.52-1.04) mg/dL Glucose (74-99) mg/dL POC Glucose (mg/dL) 41 L 51 L 61 L (75-99) mg/dL Magnesium (1.6-2.3) mg/dL 04/02/21 04/02/21 04/02/21 Range/Units 08:42 08:42 11:41 RBC 2.92 L (3.80-5.40) m/uL Hgb 8.8 L (11.4-16.0) gm/dL Hct 29.6 L (34.0-46.0) % MCV 101.4 H D (80.0-100.0) fL MCHC 29.7 L (31.0-37.0) g/dL Chloride 109 H (98-107) mmol/L Carbon Dioxide 17 L (22-30) mmol/L BUN 45 H (7-17) mg/dL Creatinine 2.83 H (0.52-1.04) mg/dL Glucose 203 H (74-99) mg/dL POC Glucose (mg/dL) 320 H (75-99) mg/dL Magnesium (1.6-2.3) mg/dL 04/02/21 04/02/21 04/02/21 Range/Units 16:37 20:14 21:59 RBC (3.80-5.40) m/uL Hgb (11.4-16.0) gm/dL Hct (34.0-46.0) % MCV (80.0-100.0) fL MCHC (31.0-37.0) g/dL Chloride (98-107) mmol/L Carbon Dioxide (22-30) mmol/L BUN (7-17) mg/dL Creatinine (0.52-1.04) mg/dL Glucose (74-99) mg/dL POC Glucose (mg/dL) 129 H 143 H 222 H (75-99) mg/dL Magnesium (1.6-2.3) mg/dL 04/03/21 04/03/21 04/03/21 Range/Units 06:11 06:28 06:45 RBC (3.80-5.40) m/uL Hgb (11.4-16.0) gm/dL Hct (34.0-46.0) % MCV (80.0-100.0) fL MCHC (31.0-37.0) g/dL Chloride (98-107) mmol/L Carbon Dioxide (22-30) mmol/L BUN (7-17) mg/dL Creatinine (0.52-1.04) mg/dL Glucose (74-99) mg/dL POC Glucose (mg/dL) 62 L 56 L 65 L (75-99) mg/dL Magnesium (1.6-2.3) mg/dL 04/03/21 04/03/21 Range/Units 07:26 07:26 RBC 3.12 L (3.80-5.40) m/uL Hgb 9.2 L (11.4-16.0) gm/dL Hct 31.0 L (34.0-46.0) % MCV (80.0-100.0) fL MCHC 29.8 L (31.0-37.0) g/dL Chloride (98-107) mmol/L Carbon Dioxide (22-30) mmol/L BUN 45 H (7-17) mg/dL Creatinine 2.71 H (0.52-1.04) mg/dL Glucose 129 H (74-99) mg/dL POC Glucose (mg/dL) (75-99) mg/dL Magnesium 2.4 H (1.6-2.3) mg/dL Assessment and Plan Plan: Assessment: 1. Acute kidney injury secondary to ATN secondary to cardiorenal syndrome. Creatinine 3.04 on admission - 2.71 today. Ultrasound from earlier this month revealed no evidence of hydronephrosis. UA benign. 2. Chronic kidney disease stage IIIB secondary to nephrosclerosis and diabetic kidney disease with baseline creatinine near 1.5 from August 2020. 3. Volume overload. Improving with diuresis. 4. Acute on chronic diastolic CHF and moderate to severe mitral and tricuspid regurgitation and pulmonary hypertension. 5. Diabetes mellitus. 6. Metabolic acidosis secondary to acute kidney injury. On oral bicarb. Better. 7. Anemia of chronic kidney disease. Iron deficiency noted. 8. Coronary artery disease. Plan: Maintain current dose of Lasix. 1500 mL fluid restriction. Avoid nephrotoxins. Maintain IV iron. Advised the patient to follow up outpatient 1 week post discharge. To call if edema worsens or gains more than 3 pounds in 1 week duration.
[2021-04-03] MEDS: SODIUM FERRIC GLUCONAT-SUCROSE 125 MG in SODIUM CHLORIDE 0.9% 100 ML IVPB SCH ×2 (09:00→11:08)
[2021-04-03] MEDS: SODIUM BICARBONATE TAB 650 MG TAB PO SCH ×2 (09:01→16:43)
[2021-04-03] MEDS: lisinopriL 20 MG TAB PO SCH (09:01)
[2021-04-03] MEDS: FUROSEMIDE 40 MG TAB PO SCH ×2 (09:01→16:43)
[2021-04-03] MEDS: ASPIRIN 81 MG PO SCH (09:01)
[2021-04-03] MEDS: CHOLECALCIFEROL 25 MCG (1000 IU) TABLET PO SCH (09:01)
[2021-04-03] MEDS: METOPROLOL TARTRATE 50 MG TAB PO SCH (09:01)
[2021-04-03] MEDS: BRIMONIDINE TARTRATE 0.2% DROPS 5 ML BTL LEFT EYE SCH ×2 (09:02→16:44)
[2021-04-03] MEDS: DORZOLAMIDE HCL 2% DROPS 10 ML BTL LEFT EYE SCH ×2 (09:02→16:44)
[2021-04-03] MEDS: TIMOLOL 0.5% OPHTH DROPS 5 ML BTL LEFT EYE SCH ×2 (09:02→16:43)
[2021-04-03] MEDS: LATANOPROST 0.005% OPHTH DROPS 2.5 ML BTL LEFT EYE SCH (09:02)
[2021-04-03 11:41] LABS: Glucose,Whole Blood 273 mg/dL (75-99)
[2021-04-03 12:18] VITALS: TEMP 97.7
--- NOTE | 2021-04-03 12:38 | P.DS ---
Providers Date of admission: 04/01/21 07:28 Attending physician: Last Barrios Consults: 04/01/21 07:49 Consult Physician Routine Consulting Provider: Zia Araiza Consult Reason/Comments: renal failure Do you want consulting provider notified?: Yes Consult Physician Routine Consulting Provider: Mina Chavez Consult Reason/Comments: CHF Do you want consulting provider notified?: Yes Primary care physician: Last Barrios - Discharge Diagnosis(es) (1) Acute on chronic renal failure Current Visit: Yes Status: Acute (2) Acute pulmonary edema Current Visit: Yes Status: Acute (3) CHF exacerbation Current Visit: Yes Status: Acute (4) Atrial fibrillation Current Visit: No Status: Acute (5) Insulin dependent type 2 diabetes mellitus Current Visit: No Status: Acute (6) Readmission after hospitalization within last 30 days Current Visit: No Status: Acute (7) Weakness Current Visit: No Status: Acute Hospital Course: This is discharge summary in a 75-year-old white female essentially admitted for congestive heart failure. Underlying history of paroxysmal atrial fibrillation but not a candidate now because of history of GI bleeding for anticoagulation. She was stabilized and restarted on her diuretic. Lasix was instituted and she responded quite well. She has an underlying history of labile diabetes which was stabilized during this hospitalization. After being cleared by cardiology and nephrology, she will be reinstituted for home. Prognosis is guarded secondary to multiple comorbidities but she is stable for discharge. Patient Condition at Discharge: Fair Plan - Discharge Summary Discharge Rx Participant: Yes New Discharge Prescriptions: New Furosemide [Lasix] 40 mg PO BID #60 tab Sodium Bicarbonate Tab 650 mg PO TID #90 tab Continue Aspirin 81 mg PO DAILY #30 chew Cholecalciferol [Vitamin D3 (25 Mcg = 1000 Iu)] 50 mcg PO DAILY Metoprolol Tartrate [Lopressor] 50 mg PO BID Enalapril Maleate [Vasotec] 5 mg PO BID Latanoprost/Pf [Latanoprost 0.005% Eye Drop] 1 drop LEFT EYE QAM Brimonidine Tartrate/Timolol [Combigan 0.2%-0.5% Eye Drops] 1 drop LEFT EYE TID Amiodarone HCl [Pacerone] 1 tab PO DAILY Insulin Glargine,Hum.rec.anlog [Lantus Solostar Pen] 22 unit SQ HS Dorzolamide 2% [Trusopt 2%] 1 drop LEFT EYE TID Sulfamethoxazole/Trimethoprim [Sulfamethoxazole-Tmp Ds Tablet] 1 tab PO BID Discharge Medication List Aspirin 81 mg PO DAILY #30 chew 07/01/19 [Rx] Cholecalciferol [Vitamin D3 (25 Mcg = 1000 Iu)] 50 mcg PO DAILY 04/14/20 [History] Metoprolol Tartrate [Lopressor] 50 mg PO BID 05/04/20 [History] Insulin Glargine,Hum.rec.anlog [Lantus Solostar Pen] 22 unit SQ HS 07/19/20 [History] Enalapril Maleate [Vasotec] 5 mg PO BID 08/17/20 [History] Brimonidine Tartrate/Timolol [Combigan 0.2%-0.5% Eye Drops] 1 drop LEFT EYE TID 03/14/21 [History] Dorzolamide 2% [Trusopt 2%] 1 drop LEFT EYE TID 03/14/21 [History] Latanoprost/Pf [Latanoprost 0.005% Eye Drop] 1 drop LEFT EYE QAM 03/14/21 [Histo ry] Amiodarone HCl [Pacerone] 1 tab PO DAILY 03/15/21 [History] Sulfamethoxazole/Trimethoprim [Sulfamethoxazole-Tmp Ds Tablet] 1 tab PO BID 04/01/21 [History] Furosemide [Lasix] 40 mg PO BID #60 tab 04/03/21 [Rx] Sodium Bicarbonate Tab 650 mg PO TID #90 tab 04/03/21 [Rx] Follow up Appointment(s)/Referral(s): [facility], [NON-STAFF] - 1 Week Last Barrios MD [Primary Care Provider] - 1-2 days Activity/Diet/Wound Care/Special Instructions: Please make follow up appointment within 3 days of D/C.
--- NOTE | 2021-04-03 12:52 | P.PN ---
Subjective This is a 75-year-old female past medical history of chronic diastolic heart failure, paroxysmal atrial fibrillation not on anticoagulation due to increase in frequent nosebleeds, coronary artery disease status post PCI to the mid LAD in 2019 and PCI mid RCA in 2013, dyslipidemia, hypertension, type 2 diabetes. She follows in the office with Dr. Chavez. We are consultation for congestive heart failure. She presents to the emergency department with complaints of worsening shortness of breath, generalized fatigue, bilateral lower extremity edema. Her diuretics were on hold outpatient due to renal insufficiency. Patient was started on IV Lasix. Her echocardiogram on 03/16/21 revealed EF 55-60%, moderate to severe mitral regurgitation, moderate tricuspid regurgitation, moderate pulmonary hypertension RVSP 48mmHg. 04/04/20 Patient seen and examined at bedside, no acute distress. She states her breathing has significantly improved from yesterday, she states she is feeling much better. Her lower extremity edema has improved. She denies any chest pain. Patient with 2.2 L urine output over the past 24 hours. Labs, WBC 9.7, hemoglobin 9.2, platelets 214, sodium 137, potassium 4.8, BUN 45, serum creatinine 2.7, magnesium 2.4. Patient is in transition to by mouth Lasix. She is currently maintained on amiodarone 100 mg nightly, aspirin 81 mg daily, PO Lasix 40 mg twice a day, lisinopril 20 mg twice a day, metoprolol tartrate 50 mg twice a day GENERAL: Well-appearing, well-nourished and in no acute distress. NECK: Supple without JVD or thyromegaly. LUNGS: Breath sounds mild crackles in the bases to auscultation bilaterally. R espiration equal and unlabored. No wheezes, rales or rhonchi. HEART: Regular rate and rhythm without murmurs, rubs or gallops. S1 and S2 heard. EXTREMITIES: Normal range of motion, 2+ bilateral lower and upper extremity edema. No clubbing or cyanosis. Peripheral pulses intact. ASSESSMENT Acute on chronic diastolic heart failure Chronic kidney disease Paroxysmal atrial fibrillation not on anticoagulation due to increase in frequent nosebleeds Coronary artery disease status post PCI to the mid LAD in 2019 and PCI mid RCA in 2013 Dyslipidemia Hypertension Type 2 diabetes Mitral regurgitation Pulmonary hypertension PLAN Agree with transition to PO Lasix Continue aspirin, lisinopril and metoprolol If patient remains stable and feeling well, ok to discharge from a supervisor accounting clerks today after clearance with primary and other consultants Follow up with Dr. Chavez as an outpatient Nurse Practitioner note has been reviewed, I agree with a documented findings and plan of care. Patient was seen and examined. Objective - Vital Signs Vital signs: Vital Signs Temp 97.7 F 04/03/21 12:00 Pulse 63 04/03/21 12:00 Resp 18 04/03/21 12:00 BP 108/53 04/03/21 12:00 Pulse Ox 97 04/03/21 12:00 Intake & Output 04/02/21 04/03/21 04/03/21 18:59 06:59 18:59 Intake Total 358 0 Output Total 1000 1200 600 Balance -642 -1200 -600 Weight 81.647 kg 87.4 kg Intake: Oral 358 0 Output: Urine 1000 1200 600 Other: Voiding Method Indwelling Catheter Indwelling Catheter Indwelling Catheter # Bowel Movements 1 - Labs CBC & Chem 7: 04/03/21 07:26 04/03/21 07:26 Labs: Abnormal Lab Results - Last 24 Hours (Table) 04/02/21 04/02/21 04/02/21 Range/Units 16:37 20:14 21:59 RBC (3.80-5.40) m/uL Hgb (11.4-16.0) gm/dL Hct (34.0-46.0) % MCHC (31.0-37.0) g/dL BUN (7-17) mg/dL Creatinine (0.52-1.04) mg/dL Glucose (74-99) mg/dL POC Glucose (mg/dL) 129 H 143 H 222 H (75-99) mg/dL Magnesium (1.6-2.3) mg/dL 04/03/21 04/03/21 04/03/21 Range/Units 06:11 06:28 06:45 RBC (3.80-5.40) m/uL Hgb (11.4-16.0) gm/dL Hct (34.0-46.0) % MCHC (31.0-37.0) g/dL BUN (7-17) mg/dL Creatinine (0.52-1.04) mg/dL Glucose (74-99) mg/dL POC Glucose (mg/dL) 62 L 56 L 65 L (75-99) mg/dL Magnesium (1.6-2.3) mg/dL 04/03/21 04/03/21 04/03/21 Range/Units 07:26 07:26 11:39 RBC 3.12 L (3.80-5.40) m/uL Hgb 9.2 L (11.4-16.0) gm/dL Hct 31.0 L (34.0-46.0) % MCHC 29.8 L (31.0-37.0) g/dL BUN 45 H (7-17) mg/dL Creatinine 2.71 H (0.52-1.04) mg/dL Glucose 129 H (74-99) mg/dL POC Glucose (mg/dL) 273 H (75-99) mg/dL Magnesium 2.4 H (1.6-2.3) mg/dL
[2021-04-03] MEDS ORDERED: TAMSULOSIN 0.4 MG CAP.ER.24H PO STA (16:17)
[2021-04-03 16:31] LABS: Glucose,Whole Blood 107 mg/dL (75-99)
[2021-04-03 17:07] VITALS: PULSE 57
[2021-04-03 17:18] VITALS: BP 134/81
== END 2021-04-03 19:00 | disposition home or self-care (01) | DRG 291 ==
LOC: EC 05:45 → 3SCARD 07:28
PROVIDERS: ADMIT Family Medicine; ATTEND Family Medicine
DX: I13.0 Hypertensive heart and chronic kidney disease with heart failure and stage 1 through stage 4 chronic kidney disease, or unspecified chronic kidney disease (principal); I50.33 Acute on chronic diastolic (congestive) heart failure; N17.0 Acute kidney failure with tubular necrosis; E87.2 Acidosis; I08.1 Rheumatic disorders of both mitral and tricuspid valves; I25.10 Atherosclerotic heart disease of native coronary artery without angina pectoris; I25.2 Old myocardial infarction; I27.20 Pulmonary hypertension, unspecified; I48.0 Paroxysmal atrial fibrillation; N18.32 Chronic kidney disease, stage 3b; D50.0 Iron deficiency anemia secondary to blood loss (chronic); D63.1 Anemia in chronic kidney disease; E11.22 Type 2 diabetes mellitus with diabetic chronic kidney disease; E66.9 Obesity, unspecified; Z68.37 Body mass index [BMI] 37.0-37.9, adult; E78.5 Hyperlipidemia, unspecified; K59.00 Constipation, unspecified; E11.40 Type 2 diabetes mellitus with diabetic neuropathy, unspecified; Z20.822 Contact with and (suspected) exposure to COVID-19; Z79.4 Long term (current) use of insulin; M19.90 Unspecified osteoarthritis, unspecified site; Z79.82 Long term (current) use of aspirin; Z79.899 Other long term (current) drug therapy; Z86.74 Personal history of sudden cardiac arrest; Z80.1 Family history of malignant neoplasm of trachea, bronchus and lung; Z82.5 Family history of asthma and other chronic lower respiratory diseases; Z83.3 Family history of diabetes mellitus; Z87.891 Personal history of nicotine dependence; Z95.5 Presence of coronary angioplasty implant and graft; Z98.42 Cataract extraction status, left eye; Z98.41 Cataract extraction status, right eye; Z96.1 Presence of intraocular lens; Z98.890 Other specified postprocedural states; Z87.01 Personal history of pneumonia (recurrent); Z88.1 Allergy status to other antibiotic agents; Z91.012 Allergy to eggs; Z91.040 Latex allergy status; Z88.0 Allergy status to penicillin; Z88.8 Allergy status to other drugs, medicaments and biological substances; Z91.018 Allergy to other foods
CPT/HCPCS: 36415; 71046; 80053; 81003; 82728; 83540; 83550; 83605; 83735; 83880; 84484; 85025; 85027; 85610; 85730; 87635; 93005; 94760; 96372; 96374; 99291

== ENCOUNTER 2021-06-30 09:20 | Inpatient (IN) | payer MEDICARE, OTHER ==
[2021-06-30] MEDS ORDERED: SODIUM CHLORIDE 0.9% 500 ML 500 ML IV STA (09:40)
--- NOTE | 2021-06-30 09:45 | ED ---
General Adult HPI - General Chief complaint: Nausea/Vomiting/Diarrhea Stated complaint: weakness Time Seen by Provider: 06/30/21 09:25 Source: patient, EMS, RN notes reviewed, old records reviewed Mode of arrival: EMS Limitations: no limitations - History of Present Illness Initial comments: 76-year-old female presents for evaluation of generalized weakness, difficulty ambulating and diarrhea. Patient was recently discharged home after having peripheral vascular procedure and left fourth toe amputation. She was discharged home but rehabilitation was recommended. She states she is not able to get around well at home due to weakness and persistent diarrhea. She denies fever. Denies chest pain. No leg pain. - Related Data Home Medications Medication Instructions Recorded Confirmed Insulin Glargine,Hum.rec.anlog 22 unit SQ HS 07/19/20 06/30/21 [Lantus Solostar Pen] Acetaminophen Tab [Tylenol Tab] 500 mg PO Q4H 06/30/21 06/30/21 Cholecalciferol (Vitamin D3) 75 mcg PO DAILY 06/30/21 06/30/21 [Vitamin D3 (3000 Iu)] Furosemide [Lasix] 40 mg PO DAILY PRN 06/30/21 06/30/21 Previous Rx's Medication Instructions Recorded Aspirin 81 mg PO DAILY #30 chew 07/01/19 Furosemide [Lasix] 40 mg PO DAILY #0 tablet 06/24/21 Metoprolol Tartrate 25 mg PO BID #0 tab 06/24/21 Allergies Allergy/AdvReac Type Severity Reaction Status Date / Time Corticosteroids Allergy Unknown Unknown Verified 06/30/21 10:57 (Glucocorticoids) azithromycin [From Zithromax] Allergy Anaphylaxis Verified 06/30/21 10:57 banana Allergy Unknown Verified 06/30/21 10:57 carisoprodol [From Soma] Allergy Unknown Verified 06/30/21 10:57 ciprofloxacin [From Cipro] Allergy Unknown Verified 06/30/21 10:57 cortisone [Cortisone] Allergy Unknown Verified 06/30/21 10:57 cyclobenzaprine HCl Allergy Unknown Verified 06/30/21 10:57 [From Flexeril] latex Allergy Rash/Hives Verified 06/30/21 10:57 Latex, Natural Rubber Allergy Rash/Hives Verified 06/30/21 10:57 levofloxacin [From Levaquin] Allergy Anaphylaxis Verified 06/30/21 10:57 Penicillins Allergy Anaphylaxis Verified 06/30/21 10:57 Review of Systems ROS Statement: Those systems with pertinent positive or pertinent negative responses have been documented in the HPI. ROS Other: All systems not noted in ROS Statement are negative. Past Medical History Past Medical History: Atrial Fibrillation, Coronary Artery Disease (CAD), Chest Pain / Angina, Heart Failure, Diabetes Mellitus, Eye Disorder, Hypertension, Myocardial Infarction ([place]), Osteoarthritis (OA), Pneumonia, Renal Disease Additional Past Medical History / Comment(s): NIDDM type II, neuropathy bilateral feet, 01-03-14 [place]/cardiac arrest/resp failure/intubation, UTIs, past L eye retinal bleed with surgery. Last Myocardial Infarction Date:: 01-03-14 History of Any Multi-Drug Resistant Organisms: None Reported Past Surgical History: Heart Catheterization, Heart Catheterization With Stent Additional Past Surgical History / Comment(s): Stent RCA 01-07-14, stent LAD 02/14/2019, L retinal bleed with surgery, bilateral cataract removal/lens implants, colonoscopy Past Anesthesia/Blood Transfusion Reactions: No Reported Reaction Date of Last Stent Placement:: 2013 Past Psychological History: No Psychological Hx Reported Smoking Status: Former smoker - Past Family History Father Family Medical History: Cancer, Diabetes Mellitus Additional Family Medical History / Comment(s): age 70 from lung cancer Mother Family Medical History: COPD Additional Family Medical History / Comment(s): age 83 emphysema General Exam Limitations: no limitations General appearance: alert, in no apparent distress Head exam: Present: atraumatic, normocephalic Eye exam: Present: normal appearance, PERRL ENT exam: Present: mucous membranes dry Neck exam: Present: normal inspection. Absent: tenderness, meningismus Respiratory exam: Present: normal lung sounds bilaterally. Absent: respiratory distress, wheezes Cardiovascular Exam: Present: regular rate, normal rhythm GI/Abdominal exam: Present: soft. Absent: distended, tenderness, guarding Extremities exam: Present: other (left foot Dressing clean dry and intact, bilateral lower extremities are warm to the touch.) Neurological exam: Present: alert, oriented X3, CN II-XII intact. Absent: motor sensory deficit Psychiatric exam: Present: normal affect, normal mood Skin exam: Present: warm, dry, other (Ecchymosis in the right groin) Course Vital Signs 06/30/21 09:22 Temperature 97.6 F Pulse Rate 63 Respiratory 18 Rate Blood Pressure 116/81 O2 Sat by Pulse 100 Oximetry EKG Findings - EKG Comments: EKG Findings:: EKG: Sinus rhythm, left bundle branch block, rate of 60, ND interval 188, QRS duration 152, QTC 487 Medical Decision Making - Medical Decision Making 76-year-old female with generalized weakness, inability to ambulate. Patient was recommended to be admitted at the time of discharge but she wanted to go home. She has not been doing well at home and will likely require some rehabilitation. Laboratory studies are repeated. She has a mild leukocytosis. She has iron anemia with hemoglobin 6.7 which is down trending. This is req uiring 1 unit transfusion. She has an acute kidney injury with a creatinine of 2.4 which is elevated above baseline. Urinalysis and Clostridium difficile toxin are pending. She will be admitted to Dr. Barrios who is aware. - Lab Data Result diagrams: 06/30/21 09:48 06/30/21 09:48 Lab Results 06/30/21 06/30/21 06/30/21 Range/Units 09:48 09:48 09:48 WBC 11.9 H (3.8-10.6) k/uL RBC 2.25 L (3.80-5.40) m/uL Hgb 6.7 L* (11.4-16.0) gm/dL Hct 21.0 L (34.0-46.0) % MCV 93.2 (80.0-100.0) fL MCH 29.7 (25.0-35.0) pg MCHC 31.9 (31.0-37.0) g/dL RDW 17.6 H (11.5-15.5) % Plt Count 197 D (150-450) k/uL MPV 10.1 Hypochromasia Slight Anisocytosis Slight PT 12.7 H (9.0-12.0) sec INR 1.2 H (<1.2) APTT 26.5 (22.0-30.0) sec Sodium 137 (137-145) mmol/L Potassium 4.0 (3.5-5.1) mmol/L Chloride 108 H (98-107) mmol/L Carbon Dioxide 20 L (22-30) mmol/L Anion Gap 9 mmol/L BUN 66 H (7-17) mg/dL Creatinine 2.41 H (0.52-1.04) mg/dL Est GFR (CKD-EPI)AfAm 22 (>60 ml/min/1.73 sqM) Est GFR (CKD-EPI)NonAf 19 (>60 ml/min/1.73 sqM) Glucose 92 (74-99) mg/dL Plasma Lactic Acid Jona (0.7-2.0) mmol/L Calcium 7.9 L (8.4-10.2) mg/dL Magnesium 2.7 H (1.6-2.3) mg/dL Total Bilirubin 1.4 H (0.2-1.3) mg/dL AST 22 (14-36) U/L ALT 24 (4-34) U/L Alkaline Phosphatase 119 (38-126) U/L Total Protein 5.8 L (6.3-8.2) g/dL Albumin 2.9 L (3.5-5.0) g/dL 06/30/21 Range/Units 09:48 WBC (3.8-10.6) k/uL RBC (3.80-5.40) m/uL Hgb (11.4-16.0) gm/dL Hct (34.0-46.0) % MCV (80.0-100.0) fL MCH (25.0-35.0) pg MCHC (31.0-37.0) g/dL RDW (11.5-15.5) % Plt Count (150-450) k/uL MPV Hypochromasia Anisocytosis PT (9.0-12.0) sec INR (<1.2) APTT (22.0-30.0) sec Sodium (137-145) mmol/L Potassium (3.5-5.1) mmol/L Chloride (98-107) mmol/L Carbon Dioxide (22-30) mmol/L Anion Gap mmol/L BUN (7-17) mg/dL Creatinine (0.52-1.04) mg/dL Est GFR (CKD-EPI)AfAm (>60 ml/min/1.73 sqM) Est GFR (CKD-EPI)NonAf (>60 ml/min/1.73 sqM) Glucose (74-99) mg/dL Plasma Lactic Acid Jona 0.7 (0.7-2.0) mmol/L Calcium (8.4-10.2) mg/dL Magnesium (1.6-2.3) mg/dL Total Bilirubin (0.2-1.3) mg/dL AST (14-36) U/L ALT (4-34) U/L Alkaline Phosphatase (38-126) U/L Total Protein (6.3-8.2) g/dL Albumin (3.5-5.0) g/dL Disposition Clinical Impression: Weakness, Anemia Disposition: ADMITTED IP TO THIS [facility] Condition: Stable Is patient prescribed a controlled substance at d/c from ED?: No Referrals: Last Barrios MD [Primary Care Provider] - 1-2 days Decision to Admit Reason: Admit from EC Decision Date: 06/30/21 Decision Time: 11:24
[2021-06-30 10:52] LABS: Anisocytosis Slight; Basophils # (A) 0.1 k/uL (0-0.2); Basophils % (A) 0 %; Eosinophils # (A) 0.6 k/uL (0-0.7); Eosinophils % (A) 5 %; Hypochromasia Slight; Lymphocytes # (A) 2.1 k/uL (1.0-4.8); Lymphocytes % (A) 18 %; MCH 29.7 pg (25.0-35.0); MCHC 31.9 g/dL (31.0-37.0); MCV 93.2 fL (80.0-100.0); Mean Platelet Volume 10.1; Monocytes # (A) 0.9 k/uL (0-1.0); Monocytes % (A) 8 %; Neutrophils # (A) 7.9 k/uL (1.3-7.7); Neutrophils % (A) 66 %; RBC 2.25 m/uL (3.80-5.40); RDW 17.6 % (11.5-15.5); WBC 11.9 k/uL (3.8-10.6)
[2021-06-30 10:56] LABS: INR 1.2 (<1.2); Partial Thromboplastin Time 26.5 sec (22.0-30.0); Prothrombin Time 12.7 sec (9.0-12.0)
[2021-06-30 10:57] LABS: Albumin 2.9 g/dL (3.5-5.0); Calcium 7.9 mg/dL (8.4-10.2); Magnesium 2.7 mg/dL (1.6-2.3); Total Bilirubin 1.4 mg/dL (0.2-1.3); Total Protein 5.8 g/dL (6.3-8.2)
[2021-06-30 10:58] LABS: Platelet Count 197 k/uL (150-450)
[2021-06-30 10:59] LABS: HGB 6.7 gm/dL (11.4-16.0)
[2021-06-30] MEDS ORDERED: NALOXONE 0.4 MG/ML 1 ML VIAL IV PRN (11:21)
[2021-06-30 11:50] LABS: Polychromasia Present
[2021-06-30] MEDS: LOPERAMIDE 2 MG CAP PO PRN ×2 (16:18→23:03)
[2021-06-30] MEDS: ACETAMINOPHEN TAB 325 MG TAB PO PRN (20:01)
[2021-06-30 21:54] LABS: Glucose,Whole Blood 180 mg/dL (75-99)
[2021-06-30] MEDS: METOPROLOL TARTRATE 25 MG TAB PO SCH (21:57)
[2021-06-30] MEDS: INSULIN DETEMIR (LEVEMIR) 100 UNIT/ML SYR SQ SCH (21:58)
[2021-07-01 06:48] LABS: Glucose,Whole Blood 42 mg/dL (75-99)
[2021-07-01 07:27] LABS: Glucose,Whole Blood 72 mg/dL (75-99)
--- NOTE | 2021-07-01 08:41 | P.HPIM ---
History of Present Illness H&P Date: 07/01/21 Chief Complaint: Weakness The patient is 76-year-old white female with known history of diabetic nephropathy with known history of recent amputation of the third digit the left toe who failed outpatient treatment. Weakness is noted. The patient wanted to go home and refused to go [facility] [place] [facility] but she has acquiesced and stated that this would be the safest place for she has not enough support at home. Review of Systems Constitutional: Denies chills, Denies fever Eyes: denies blurred vision, denies pain Ears, nose, mouth and throat: Denies headache, Denies sore throat Cardiovascular: Reports as per HPI Respiratory: Reports as per HPI Musculoskeletal: Reports as per HPI, Reports prior amputations Integumentary: Denies pruritus, Denies rash Past Medical History Past Medical History: Atrial Fibrillation, Coronary Artery Disease (CAD), Chest Pain / Angina, Heart Failure, Diabetes Mellitus, Eye Disorder, Hypertension, My ocardial Infarction (SD), Osteoarthritis (OA), Pneumonia, Renal Disease, Vascular Disorder Additional Past Medical History / Comment(s): Pt recently admitted to [facility] on 06/16/21 with L foot cellulitis/L 4th toe amp and had peripheral vascular procedures with post hematoma and acute blood loss anemia. Other hx: NIDDM type II, neuropathy bilateral feet, 01-03-14 SD/cardiac arrest/resp failure/intubation, CKD, chronic anemia, mild thrombocytopenia, PAD, UTIs, unsteady gait, FALLS, past L eye retinal bleed with surgery. Last Myocardial Infarction Date:: 01-03-14 History of Any Multi-Drug Resistant Organisms: None Reported Past Surgical History: Heart Catheterization, Heart Catheterization With Stent Additional Past Surgical History / Comment(s): 06/18/21 L 4th toe amputation, 06/2021 L fempop angiogram/L SFA atherectomy/PTBA, stent RCA 01-07-14, stent LAD 02/14/2019, L retinal bleed with surgery, bilateral cataract removal/lens implants, colonoscopy Past Anesthesia/Blood Transfusion Reactions: No Reported Reaction Date of Last Stent Placement:: 2018 Smoking Status: Former smoker - Past Family History Father Family Medical History: Cancer, Diabetes Mellitus Additional Family Medical History / Comment(s): age 70 from lung cancer Mother Family Medical History: COPD Additional Family Medical History / Comment(s): age 83 emphysema Medications and Allergies Home Medications Medication Instructions Recorded Confirmed Type Aspirin 81 mg PO DAILY #30 chew 07/01/19 06/30/21 Rx Insulin Glargine,Hum.rec.anlog 22 unit SQ HS 07/19/20 06/30/21 History [Lantus Solostar Pen] Furosemide [Lasix] 40 mg PO DAILY #0 tablet 06/24/21 06/30/21 Rx Metoprolol Tartrate 25 mg PO BID #0 tab 06/24/21 06/30/21 Rx Acetaminophen Tab [Tylenol Tab] 500 mg PO Q4H 06/30/21 06/30/21 History Cholecalciferol (Vitamin D3) 75 mcg PO DAILY 06/30/21 06/30/21 History [Vitamin D3 (3000 Iu)] Furosemide [Lasix] 40 mg PO DAILY PRN 06/30/21 06/30/21 History Allergies Allergy/AdvReac Type Severity Reaction Status Date / Time Corticosteroids Allergy Unknown Unknown Verified 06/30/21 10:57 (Glucocorticoids) azithromycin [From Zithromax] Allergy Anaphylaxis Verified 06/30/21 10:57 banana Allergy Unknown Verified 06/30/21 10:57 carisoprodol [From Soma] Allergy Unknown Verified 06/30/21 10:57 ciprofloxacin [From Cipro] Allergy Unknown Verified 06/30/21 10:57 cortisone [Cortisone] Allergy Unknown Verified 06/30/21 10:57 cyclobenzaprine HCl Allergy Unknown Verified 06/30/21 10:57 [From Flexeril] latex Allergy Rash/Hives Verified 06/30/21 10:57 Latex, Natural Rubber Allergy Rash/Hives Verified 06/30/21 10:57 levofloxacin [From Levaquin] Allergy Anaphylaxis Verified 06/30/21 10:57 Penicillins Allergy Anaphylaxis Verified 06/30/21 10:57 Physical Exam Vitals: Vital Signs Temp Pulse Pulse Resp BP BP Pulse Ox 07/01/21 02:02 97.9 F 54 L 15 131/76 100 06/30/21 20:00 98.1 F 15 114/55 99 06/30/21 18:46 97.9 F 67 16 137/50 95 06/30/21 18:16 97.9 F 67 16 113/57 99 06/30/21 17:46 98.4 F 64 18 127/39 97 06/30/21 17:36 98.3 F 64 18 120/42 06/30/21 09:22 97.6 F 63 18 116/81 100 Intake and Output 06/30/21 07/01/21 07/01/21 22:59 06:59 14:59 Intake Total 0 Balance 0 Intake: Blood Product 0 Rc Pheresis 2 As3 Unit 0 [id number] Other: Voiding Method Incontinent # Voids 1 # Bowel Movements 2 3 - Constitutional General appearance: no acute distress - EENT Eyes: EOMI - Neck Neck: no lymphadenopathy - Respiratory Respiratory: bilateral: diminished - Cardiovascular Rhythm: irregularly irregular Heart sounds: normal: S1, S2 - Gastrointestinal General gastrointestinal: soft, no tenderness - Psychiatric Psychiatric: A&O x's 3 Results CBC & Chem 7: 06/30/21 09:48 06/30/21 09:48 Labs: Abnormal Lab Results - Last 24 Hours (Table) 06/30/21 06/30/21 06/30/21 Range/Units 09:48 09:48 09:48 WBC 11.9 H (3.8-10.6) k/uL RBC 2.25 L (3.80-5.40) m/uL Hgb 6.7 L* (11.4-16.0) gm/dL Hct 21.0 L (34.0-46.0) % RDW 17.6 H (11.5-15.5) % Neutrophils # 7.9 H (1.3-7.7) k/uL PT 12.7 H (9.0-12.0) sec INR 1.2 H (<1.2) Chloride 108 H (98-107) mmol/L Carbon Dioxide 20 L (22-30) mmol/L BUN 66 H (7-17) mg/dL Creatinine 2.41 H (0.52-1.04) mg/dL POC Glucose (mg/dL) (75-99) mg/dL Calcium 7.9 L (8.4-10.2) mg/dL Magnesium 2.7 H (1.6-2.3) mg/dL Total Bilirubin 1.4 H (0.2-1.3) mg/dL Total Protein 5.8 L (6.3-8.2) g/dL Albumin 2.9 L (3.5-5.0) g/dL Crossmatch 06/30/21 06/30/21 07/01/21 Range/Units 15:40 21:49 06:43 WBC (3.8-10.6) k/uL RBC (3.80-5.40) m/uL Hgb (11.4-16.0) gm/dL Hct (34.0-46.0) % RDW (11.5-15.5) % Neutrophils # (1.3-7.7) k/uL PT (9.0-12.0) sec INR (<1.2) Chloride (98-107) mmol/L Carbon Dioxide (22-30) mmol/L BUN (7-17) mg/dL Creatinine (0.52-1.04) mg/dL POC Glucose (mg/dL) 180 H 42 L (75-99) mg/dL Calcium (8.4-10.2) mg/dL Magnesium (1.6-2.3) mg/dL Total Bilirubin (0.2-1.3) mg/dL Total Protein (6.3-8.2) g/dL Albumin (3.5-5.0) g/dL Crossmatch See Detail 07/01/21 Range/Units 07:25 WBC (3.8-10.6) k/uL RBC (3.80-5.40) m/uL Hgb (11.4-16.0) gm/dL Hct (34.0-46.0) % RDW (11.5-15.5) % Neutrophils # (1.3-7.7) k/uL PT (9.0-12.0) sec INR (<1.2) Chloride (98-107) mmol/L Carbon Dioxide (22-30) mmol/L BUN (7-17) mg/dL Creatinine (0.52-1.04) mg/dL POC Glucose (mg/dL) 72 L (75-99) mg/dL Calcium (8.4-10.2) mg/dL Magnesium (1.6-2.3) mg/dL Total Bilirubin (0.2-1.3) mg/dL Total Protein (6.3-8.2) g/dL Albumin (3.5-5.0) g/dL Crossmatch Thrombosis Risk Factor Assmnt - Choose All That Apply Any of the Below Risk Factors Present?: Yes Each Factor Represents 1 point: Obesity (BMI >25) Other Risk Factors: Yes Each Risk Factor Represents 3 Points: Age 75 years or older Other congenital or acquired thrombophilia - If yes, enter type in comment: No Thrombosis Risk Factor Assessment Total Risk Factor Score: 4 Thrombosis Risk Factor Assessment Level: Moderate Risk Assessment and Plan (1) Anemia Current Visit: Yes Status: Acute Code(s): D64.9 - ANEMIA, UNSPECIFIED SNOMED Code(s): 646820025 (2) Weakness Current Visit: Yes Status: Acute Code(s): R53.1 - WEAKNESS SNOMED Code(s): 63601249 (3) Acute kidney injury superimposed on CKD Current Visit: No Status: Acute Code(s): N17.9 - ACUTE KIDNEY FAILURE, UNSPECIFIED; N18.9 - CHRONIC KIDNEY DISEASE, UNSPECIFIED SNOMED Code(s): 52870706 (4) Amputated toe of left foot Current Visit: No Status: Acute Code(s): S98.132A - COMPLETE TRAUMATIC AMPUTATION OF ONE LEFT LESSER TOE, INIT SNOMED Code(s): 428627029 (5) Atrial fibrillation Current Visit: No Status: Acute Code(s): I48.91 - UNSPECIFIED ATRIAL FI BRILLATION SNOMED Code(s): 22157868 (6) High risk for readmission Current Visit: No Status: Acute Code(s): Z91.89 - OTH PERSONAL RISK FACTORS, NOT ELSEWHERE CLASSIFIED SNOMED Code(s): 542328198 (7) Insulin dependent type 2 diabetes mellitus Current Visit: No Status: Acute Code(s): E11.9 - TYPE 2 DIABETES MELLITUS WITHOUT COMPLICATIONS; Z79.4 - MCFP (CURRENT) USE OF INSULIN SNOMED Code(s): 761091639 (8) Readmission after hospitalization within last 30 days Current Visit: No Status: Acute Code(s): KRM6202 - SNOMED Code(s): 321105108 Plan: Multifactorial anemia. Status post 1 unit PRBC. Check CBC in a.m. Reconcile home medications. Place on sliding scale. GI prophylaxis. Continue home meds. Prognosis is guarded.
[2021-07-01] MEDS ORDERED: CHOLECALCIFEROL 25 MCG (1000 IU) TABLET PO SCH (09:00)
[2021-07-01] MEDS ORDERED: ASPIRIN 81 MG PO SCH (09:00)
[2021-07-01] MEDS: PANTOPRAZOLE 40 MG TABLET PO SCH (09:20)
[2021-07-01] MEDS: METOPROLOL TARTRATE 25 MG TAB PO SCH ×2 (09:21→20:39)
[2021-07-01] MEDS: CHOLECALCIFEROL 25 MCG (1000 IU) TABLET PO SCH (09:21)
[2021-07-01] MEDS: ASPIRIN 81 MG PO SCH (09:21)
[2021-07-01] MEDS: FUROSEMIDE 40 MG TAB PO SCH (09:21)
[2021-07-01 11:37] LABS: Glucose,Whole Blood 237 mg/dL (75-99)
[2021-07-01 16:49] LABS: Glucose,Whole Blood 225 mg/dL (75-99)
[2021-07-01 17:18] LABS: Anisocytosis Slight; Basophils # (A) 0.1 k/uL (0-0.2); Basophils % (A) 1 %; Eosinophils # (A) 0.4 k/uL (0-0.7); Eosinophils % (A) 4 %; HCT 27.5 % (34.0-46.0); Hypochromasia Marked; Lymphocytes # (A) 1.8 k/uL (1.0-4.8); Lymphocytes % (A) 16 %; MCH 30.5 pg (25.0-35.0); MCHC 30.8 g/dL (31.0-37.0); Macrocytosis Slight; Mean Platelet Volume 9.7; Monocytes # (A) 0.9 k/uL (0-1.0); Monocytes % (A) 8 %; Neutrophils # (A) 8.2 k/uL (1.3-7.7); Neutrophils % (A) 71 %; Platelet Count 181 k/uL (150-450); Poikilocytosis Slight; RBC 2.78 m/uL (3.80-5.40); RDW 16.8 % (11.5-15.5); WBC 11.7 k/uL (3.8-10.6)
[2021-07-01 17:25] LABS: HGB 8.5 gm/dL (11.4-16.0); MCV 98.9 fL (80.0-100.0)
[2021-07-01 20:24] LABS: Glucose,Whole Blood 250 mg/dL (75-99)
[2021-07-01] MEDS: INSULIN DETEMIR (LEVEMIR) 100 UNIT/ML SYR SQ SCH (20:39)
[2021-07-02] MEDS: ACETAMINOPHEN TAB 325 MG TAB PO PRN ×2 (06:03→20:58)
[2021-07-02 06:49] LABS: Glucose,Whole Blood 38 mg/dL (75-99)
[2021-07-02 07:24] LABS: Glucose,Whole Blood 89 mg/dL (75-99)
[2021-07-02] MEDS: FUROSEMIDE 40 MG TAB PO SCH (08:07)
[2021-07-02] MEDS: PANTOPRAZOLE 40 MG TABLET PO SCH (08:07)
[2021-07-02] MEDS: ASPIRIN 81 MG PO SCH (08:07)
[2021-07-02] MEDS: METOPROLOL TARTRATE 25 MG TAB PO SCH ×2 (08:07→20:58)
[2021-07-02] MEDS: CHOLECALCIFEROL 25 MCG (1000 IU) TABLET PO SCH (08:07)
--- NOTE | 2021-07-02 08:23 | P.DS ---
Providers Date of admission: 06/30/21 11:21 Attending physician: Last Barrios Primary care physician: Last Barrios - Discharge Diagnosis(es) (1) Anemia Current Visit: Yes Status: Acute (2) Weakness Current Visit: Yes Status: Acute (3) Acute kidney injury superimposed on CKD Current Visit: No Status: Acute (4) Amputated toe of left foot Current Visit: No Status: Acute (5) Atrial fibrillation Current Visit: No Status: Acute (6) High risk for readmission Current Visit: No Status: Acute (7) Insulin dependent type 2 diabetes mellitus Current Visit: No Status: Acute (8) Readmission after hospitalization within last 30 days Current Visit: No Status: Acute Hospital Course: This is a discharge/transfer summary 76-year-old white female who returns to the hospital after having difficulty taking care of herself when she had a digit amputation secondary to PAD and diabetes. The patient was admitted for placement. Essentially transferred once bed available at [facility]. The patient's blood sugar has been labile and we decreased her basal insulin today. Continue sliding scale at [facility] and the patient will hopefully be healed enough to return back to normal activity after having rehab and wound care. Patient Condition at Discharge: Stable Plan - Discharge Summary Discharge Rx Participant: No New Discharge Prescriptions: New Loperamide [Imodium] 2 mg PO QID PRN cap PRN Reason: Diarrhea Pantoprazole [Protonix] 40 mg PO AC-BRKFST #0 tab Insulin Detemir (Levemir) [Levemir] 12 unit SQ HS ml Continue Aspirin 81 mg PO DAILY #30 chew Furosemide [Lasix] 40 mg PO DAILY #0 tablet Metoprolol Tartrate 25 mg PO BID #0 tab Cholecalciferol (Vitamin D3) [Vitamin D3 (3000 Iu)] 75 mcg PO DAILY Acetaminophen Tab [Tylenol] 500 mg PO Q4H Furosemide [Lasix] 40 mg PO DAILY PRN PRN Reason: Edema Discontinued Insulin Glargine,Hum.rec.anlog [Lantus Solostar Pen] 22 unit SQ HS Discharge Medication List Aspirin 81 mg PO DAILY #30 chew 07/01/19 [Rx] Furosemide [Lasix] 40 mg PO DAILY #0 tablet 06/24/21 [Rx] Metoprolol Tartrate 25 mg PO BID #0 tab 06/24/21 [Rx] Acetaminophen Tab [Tylenol] 500 mg PO Q4H 06/30/21 [History] Cholecalciferol (Vitamin D3) [Vitamin D3 (3000 Iu)] 75 mcg PO DAILY 06/30/21 [History] Furosemide [Lasix] 40 mg PO DAILY PRN 06/30/21 [History] Insulin Detemir (Levemir) [Levemir] 12 unit SQ HS ml 07/02/21 [Rx] Loperamide [Imodium] 2 mg PO QID PRN cap 07/02/21 [Rx] Pantoprazole [Protonix] 40 mg PO AC-BRKFST #0 tab 07/02/21 [Rx] Follow up Appointment(s)/Referral(s): Last Barrios MD [Primary Care Provider] - 1-2 days Discharge Disposition: TRANSFER TO SNF/ECF
[2021-07-02 10:07] LABS: HCT 22.8 % (37.2-46.3); HGB 6.7 g/dL (12.0-15.0); MCHC 29.4 g/dL (32.0-37.0); MCV 98.7 fL (80.0-97.0); Mean Platelet Volume 12.5 fL (9.5-12.2); NRBC Per 100 WBC 0 /100 WBCS (0.0-0.0); Platelet Count 160 X 10*3/uL (140-440); RBC 2.31 X 10*6/uL (4.10-5.20); WBC 10.52 X 10*3/uL (4.50-10.00)
[2021-07-02 10:41] LABS: African American GFR (CKD) 24.1 (60.0-200.0); Albumin 2.9 g/dL (3.8-4.9); Albumin/Globulin Ratio 1.32 (1.60-3.17); Anion Gap 11.2 mmol/L (10.00-18.00); BUN/Creat Ratio 24.14 Ratio (12.00-20.00); Blood Urea Nitrogen 53.1 mg/dL (9.0-27.0); Calcium 7.7 mg/dL (8.7-10.3); Carbon Dioxide 20.8 mmol/L (20.0-27.5); Globulin 2.2 g/dL (1.6-3.3); Non-African American GFR(CKD) 20.8 (60.0-200.0); Potassium 4.1 mmol/L (3.5-5.5); Total Bilirubin 0.9 mg/dL (0.30-1.20); Total Protein 5.1 g/dL (6.2-8.2)
[2021-07-02 11:35] LABS: Glucose,Whole Blood 92 mg/dL (75-99)
[2021-07-02] MEDS: CALCIUM CARBONATE 500 MG CHEWABLE PO PRN ×2 (15:24→17:00)
[2021-07-02 16:57] LABS: Glucose,Whole Blood 236 mg/dL (75-99)
[2021-07-02] MEDS ORDERED: MAG HYDROX/AL HYDROX/SIMETH 30 ML CUP PO PRN (17:04)
[2021-07-02 20:31] LABS: Glucose,Whole Blood 194 mg/dL (75-99)
[2021-07-02 20:54] VITALS: RESP 15
[2021-07-02] MEDS ORDERED: INSULIN DETEMIR (LEVEMIR) 100 UNIT/ML SYR SQ SCH (21:00)
[2021-07-03 06:51] LABS: Glucose,Whole Blood 127 mg/dL (75-99)
[2021-07-03] MEDS: ASPIRIN 81 MG PO SCH (08:52)
[2021-07-03] MEDS: CHOLECALCIFEROL 25 MCG (1000 IU) TABLET PO SCH (08:52)
[2021-07-03] MEDS: METOPROLOL TARTRATE 25 MG TAB PO SCH (08:52)
[2021-07-03] MEDS: FUROSEMIDE 40 MG TAB PO SCH (08:53)
[2021-07-03] MEDS: ACETAMINOPHEN TAB 325 MG TAB PO PRN (08:53)
[2021-07-03] MEDS ORDERED: PANTOPRAZOLE 40 MG/10 ML VIAL IVP SCH (09:00)
[2021-07-03 09:18] LABS: Basophils # (A) 0.03 X 10*3/uL (0.00-0.10); Basophils % (A) 0.3 %; Eosinophils # (A) 0.43 X 10*3/uL (0.04-0.35); Eosinophils % (A) 4.9 %; HCT 26.9 % (37.2-46.3); HGB 8.1 g/dL (12.0-15.0); Immature Grans, Automated 1.8 %; Lymphocytes % (A) 22.9 %; MCHC 30.1 g/dL (32.0-37.0); MCV 96.4 fL (80.0-97.0); Mean Platelet Volume 12.2 fL (9.5-12.2); Monocytes # (A) 1.14 X 10*3/uL (0.20-1.00); Monocytes % (A) 13.1 %; NRBC Per 100 WBC 0 /100 WBCS (0.0-0.0); Neutrophils # (A) 4.96 X 10*3/uL (1.80-7.70); Platelet Count 170 X 10*3/uL (140-440); RBC 2.79 X 10*6/uL (4.10-5.20); RDW 17.2 % (11.5-14.5); WBC 8.72 X 10*3/uL (4.50-10.00)
[2021-07-03 09:22] VITALS: BP 126/93; PULSE 57; TEMP 97.9
[2021-07-03 11:21] LABS: Glucose,Whole Blood 106 mg/dL (75-99)
== END 2021-07-03 12:44 | DRG 812 ==
LOC: EC 09:20 → 5NMEDONC 11:21 → 4SSUR 17:44
PROVIDERS: ADMIT Family Medicine; ATTEND Family Medicine
PROC: 30233N1 Transfusion of Nonautologous Red Blood Cells into Peripheral Vein, Percutaneous Approach (ICD-10-PCS; principal; 2021-06-30)
DX: D64.9 Anemia, unspecified (principal); I13.0 Hypertensive heart and chronic kidney disease with heart failure and stage 1 through stage 4 chronic kidney disease, or unspecified chronic kidney disease; N17.9 Acute kidney failure, unspecified; R53.1 Weakness; D72.829 Elevated white blood cell count, unspecified; E11.22 Type 2 diabetes mellitus with diabetic chronic kidney disease; E11.21 Type 2 diabetes mellitus with diabetic nephropathy; I44.7 Left bundle-branch block, unspecified; E11.51 Type 2 diabetes mellitus with diabetic peripheral angiopathy without gangrene; E11.40 Type 2 diabetes mellitus with diabetic neuropathy, unspecified; I25.10 Atherosclerotic heart disease of native coronary artery without angina pectoris; I25.2 Old myocardial infarction; D69.6 Thrombocytopenia, unspecified; I48.91 Unspecified atrial fibrillation; I50.9 Heart failure, unspecified; N18.9 Chronic kidney disease, unspecified; Z79.4 Long term (current) use of insulin; Z79.82 Long term (current) use of aspirin; Z79.899 Other long term (current) drug therapy; Z80.1 Family history of malignant neoplasm of trachea, bronchus and lung; Z82.5 Family history of asthma and other chronic lower respiratory diseases; Z83.3 Family history of diabetes mellitus; Z86.74 Personal history of sudden cardiac arrest; Z87.891 Personal history of nicotine dependence; Z96.1 Presence of intraocular lens; Z98.42 Cataract extraction status, left eye; Z98.41 Cataract extraction status, right eye; Z88.1 Allergy status to other antibiotic agents; Z88.8 Allergy status to other drugs, medicaments and biological substances; Z91.040 Latex allergy status; Z91.018 Allergy to other foods; Z88.0 Allergy status to penicillin; Z89.422 Acquired absence of other left toe(s); Z87.440 Personal history of urinary (tract) infections
CPT/HCPCS: 36415; 80053; 83605; 83735; 85025; 85027; 85610; 85730; 86850; 86900; 86901; 86920; 87324; 93005; 99285

== ENCOUNTER 2021-07-20 15:56 | Emergency (ER) | payer MEDICARE, OTHER ==
[2021-07-21 00:58] LABS: Anisocytosis Slight; Basophils # (A) 0.1 k/uL (0-0.2); Basophils % (A) 1 %; Eosinophils # (A) 0.2 k/uL (0-0.7); Eosinophils % (A) 2 %; HCT 33.1 % (34.0-46.0); HGB 9.6 gm/dL (11.4-16.0); Hypochromasia Marked; Lymphocytes # (A) 2.4 k/uL (1.0-4.8); Lymphocytes % (A) 22 %; MCH 28.2 pg (25.0-35.0); MCHC 29.1 g/dL (31.0-37.0); MCV 96.7 fL (80.0-100.0); Monocytes # (A) 1.2 k/uL (0-1.0); Monocytes % (A) 11 %; Neutrophils % (A) 63 %; Platelet Count 242 k/uL (150-450); RBC 3.42 m/uL (3.80-5.40); RDW 16.1 % (11.5-15.5); WBC 11.2 k/uL (3.8-10.6)
[2021-07-21 01:12] LABS: African American GFR (CKD) 21 (>60 ml/min/1.73 sqM); Anion Gap 12 mmol/L; Blood Urea Nitrogen 75 mg/dL (7-17); C Reactive Protein 4.2 mg/dL (<1.0); Carbon Dioxide 19 mmol/L (22-30); Chloride 105 mmol/L (98-107); Glucose 223 mg/dL (74-99); Non-African American GFR(CKD) 18 (>60 ml/min/1.73 sqM); Potassium 5.5 mmol/L (3.5-5.1); Sodium 136 mmol/L (137-145)
[2021-07-21 02:08] LABS: Erythrocyte Sedimentation Rate 31 mm/hr (0-20)
[2021-07-21 02:18] VITALS: TEMP 97.8
[2021-07-21] MEDS ORDERED: VANCOMYCIN IV PER PHARMACY 1 EACH MISC MISCELLANE PRN (06:07)
--- NOTE | 2021-07-21 06:29 | ED ---
Recheck HPI - General Chief Complaint: Recheck/Abnormal Lab/Rx Stated Complaint: Left Foot infection Time Seen by Provider: 07/20/21 23:32 Source: patient Mode of arrival: wheelchair Limitations: no limitations - History of Present Illness Initial Comments: This patient is 68-year-old woman with diabetes and history of left fourth toe amputation, who was sent here to have evaluation of her foot. She states that the nurse who was tending to her last night was concerned about the appearance of her left third toe. There is some redness and an area of dry gangrene. The patient states that she does have pre-existing appointment with the wound care c enter for Tuesday at 9:15. The patient has been following there for the nonhealing wounds to the bilateral feet. She is currently taking antibiotics for treatment as well though she does not recall name of the medication. Patient denies systemic symptoms, no fever or chills, chest pain, dyspnea, palpitations. She denies significant left foot pain stating that Tylenol usually helps. MD Complaint: wound re-check -: hour(s) Initial Visit For: other Returns Today for: other Symptoms Since Prior Visit: worsening redness Associated Symptoms: none - Related Data Home Medications Medication Instructions Recorded Confirmed Acetaminophen Tab [Tylenol] 500 mg PO Q4H 06/30/21 06/30/21 Cholecalciferol (Vitamin D3) 75 mcg PO DAILY 06/30/21 06/30/21 [Vitamin D3 (3000 Iu)] Furosemide [Lasix] 40 mg PO DAILY PRN 06/30/21 06/30/21 Previous Rx's Medication Instructions Recorded Aspirin 81 mg PO DAILY #30 chew 07/01/19 Furosemide [Lasix] 40 mg PO DAILY #0 tablet 06/24/21 Metoprolol Tartrate 25 mg PO BID #0 tab 06/24/21 Insulin Detemir (Levemir) [Levemir] 12 unit SQ HS ml 07/02/21 Loperamide [Imodium] 2 mg PO QID PRN cap 07/02/21 Pantoprazole [Protonix] 40 mg PO AC-BRKFST #0 tab 07/02/21 Allergies Allergy/AdvReac Type Severity Reaction Status Date / Time Corticosteroids Allergy Unknown Unknown Verified 07/20/21 17:05 (Glucocorticoids) azithromycin [From Zithromax] Allergy Anaphylaxis Verified 07/20/21 17:05 banana Allergy Unknown Verified 07/20/21 17:05 carisoprodol [From Soma] Allergy Unknown Verified 07/20/21 17:05 ciprofloxacin [From Cipro] Allergy Unknown Verified 07/20/21 17:05 cortisone [Cortisone] Allergy Unknown Verified 07/20/21 17:05 cyclobenzaprine HCl Allergy Unknown Verified 07/20/21 17:05 [From Flexeril] latex Allergy Rash/Hives Verified 07/20/21 17:05 Latex, Natural Rubber Allergy Rash/Hives Verified 07/20/21 17:05 levofloxacin [From Levaquin] Allergy Anaphylaxis Verified 07/20/21 17:05 Penicillins Allergy Anaphylaxis Verified 07/20/21 17:05 Review of Systems ROS Statement: Those systems with pertinent positive or pertinent negative responses have been documented in the HPI. ROS Other: All systems not noted in ROS Statement are negative. Constitutional: Denies: fever, chills, weakness Respiratory: Denies: cough, dyspnea Cardiovascular: Denies: chest pain, palpitations Gastrointestinal: Denies: abdominal pain, vomiting Musculoskeletal: Denies: back pain Skin: Reports: as per HPI Neurological: Denies: headache, weakness, numbness Past Medical History Past Medical History: Atrial Fibrillation, Coronary Artery Disease (CAD), Chest Pain / Angina, Heart Failure, Diabetes Mellitus, Eye Disorder, Hypertension, Myocardial Infarction (LA), Osteoarthritis (OA), Pneumonia, Renal Disease, Vascular Disorder Additional Past Medical History / Comment(s): Pt recently admitted to [facility] on 06/16/21 with L foot cellulitis/L 4th toe amp and had peripheral vascular procedures with post hematoma and acute blood loss anemia. Other hx: NIDDM type II, neuropathy bilateral feet, 01-03-14 [place]/cardiac arrest/resp failure/intubation, CKD, chronic anemia, mild thrombocytopenia, PAD, UTIs, unsteady gait, FALLS, past L eye retinal bleed with surgery. Last Myocardial Infarction Date:: 01-03-14 History of Any Multi-Drug Resistant Organisms: None Reported Past Surgical History: Heart Catheterization, Heart Catheterization With Stent Additional Past Surgical History / Comment(s): 06/18/21 L 4th toe amputation, 06/2021 L fempop angiogram/L SFA atherectomy/PTBA, stent RCA 01-07-14, stent LAD 02/14/2019, L retinal bleed with surgery, bilateral cataract removal/lens implants, colonoscopy Past Anesthesia/Blood Transfusion Reactions: No Reported Reaction Date of Last Stent Placement:: 2018 Past Psychological History: No Psychological Hx Reported Smoking Status: Former smoker Past Alcohol Use History: None Reported Past Drug Use History: None Reported - Past Family History Father Family Medical History: Cancer, Diabetes Mellitus Additional Family Medical History / Comment(s): age 70 from lung cancer Mother Family Medical History: COPD Additional Family Medical History / Comment(s): age 83 emphysema General Exam Limitations: no limitations General appearance: alert, in no apparent distress Head exam: Present: atraumatic, normocephalic Eye exam: Present: normal appearance. Absent: scleral icterus, conjunctival injection Neck exam: Present: normal inspection Respiratory exam: Present: normal lung sounds bilaterally. Absent: respiratory distress, wheezes, rales, rhonchi, stridor Cardiovascular Exam: Present: regular rate, normal rhythm, normal heart sounds. Absent: systolic murmur, diastolic murmur, rubs, gallop GI/Abdominal exam: Present: soft. Absent: distended, tenderness, guarding, rebound, rigid Extremities exam: Present: normal inspection, normal capillary refill, pedal edema. Absent: calf tenderness Neurological exam: Present: alert, CN II-XII intact. Absent: motor sensory deficit Skin exam: Present: warm, dry, erythema, other. Absent: intact, normal color, rash Course Vital Signs 07/20/21 07/21/21 07/21/21 17:05 02:13 03:40 Temperature 97.9 F 97.8 F Pulse Rate 68 88 71 Respiratory 18 26 H 22 Rate Blood Pressure 136/58 133/57 116/74 O2 Sat by Pulse 100 100 96 Oximetry Medical Decision Making - Medical Decision Making This patient is 76-year-old woman to have evaluation for left foot infection. Patient currently following with the wound care center. She did receive dose of vancomycin here, and would like to follow with the wound care center this does seem appropriate - Lab Data Result diagrams: 07/21/21 00:27 07/21/21 00:27 Lab Results 07/21/21 07/21/21 Range/Units 00:27 00:27 WBC 11.2 H (3.8-10.6) k/uL RBC 3.42 L (3.80-5.40) m/uL Hgb 9.6 L (11.4-16.0) gm/dL Hct 33.1 L (34.0-46.0) % MCV 96.7 (80.0-100.0) fL MCH 28.2 (25.0-35.0) pg MCHC 29.1 L (31.0-37.0) g/dL RDW 16.1 H (11.5-15.5) % Plt Count 242 (150-450) k/uL MPV 9.0 Neutrophils % 63 % Lymphocytes % 22 % Monocytes % 11 % Eosinophils % 2 % Basophils % 1 % Neutrophils # 7.0 (1.3-7.7) k/uL Lymphocytes # 2.4 (1.0-4.8) k/uL Monocytes # 1.2 H (0-1.0) k/uL Eosinophils # 0.2 (0-0.7) k/uL Basophils # 0.1 (0-0.2) k/uL Hypochromasia Marked Anisocytosis Slight ESR 31 H (0-20) mm/hr Sodium 136 L (137-145) mmol/L Potassium 5.5 H (3.5-5.1) mmol/L Chloride 105 (98-107) mmol/L Carbon Dioxide 19 L (22-30) mmol/L Anion Gap 12 mmol/L BUN 75 H (7-17) mg/dL Creatinine 2.43 H (0.52-1.04) mg/dL Est GFR (CKD-EPI)AfAm 21 (>60 ml/min/1.73 sqM) Est GFR (CKD-EPI)NonAf 18 (>60 ml/min/1.73 sqM) Glucose 223 H (74-99) mg/dL Calcium 9.0 (8.4-10.2) mg/dL C-Reactive Protein 4.2 H (<1.0) mg/dL Acetone, Qual Negative (Negative) Disposition Clinical Impression: Cellulitis of foot, Gangrene of toe of left foot Disposition: HOME SELF-CARE Condition: Fair Is patient prescribed a controlled substance at d/c from ED?: No Referrals: Anika Valencia MD [Primary Care Provider] - 1-2 days
[2021-07-21] MEDS ORDERED: VANCOMYCIN 1,500 MG in SODIUM CHLORIDE 0.9% 250 ML IVPB STA (06:34)
[2021-07-21 06:51] VITALS: RESP 18
[2021-07-21 08:50] VITALS: BP 124/52; PULSE 74
[2021-07-21] MEDS ORDERED: ACETAMINOPHEN TAB 325 MG TAB PO STA (08:53)
[2021-07-22] MEDS ORDERED: VANCOMYCIN 1,500 MG in SODIUM CHLORIDE 0.9% 250 ML IVPB ONE (06:00)
== END 2021-07-21 09:41 | disposition home or self-care (01) ==
LOC: EC 15:56
DX: E11.52 Type 2 diabetes mellitus with diabetic peripheral angiopathy with gangrene (principal); L03.116 Cellulitis of left lower limb; I13.0 Hypertensive heart and chronic kidney disease with heart failure and stage 1 through stage 4 chronic kidney disease, or unspecified chronic kidney disease; E11.22 Type 2 diabetes mellitus with diabetic chronic kidney disease; I50.9 Heart failure, unspecified; I25.2 Old myocardial infarction; I48.91 Unspecified atrial fibrillation; N18.9 Chronic kidney disease, unspecified; Z87.891 Personal history of nicotine dependence; Z88.0 Allergy status to penicillin; Z88.1 Allergy status to other antibiotic agents; Z89.422 Acquired absence of other left toe(s); Z91.040 Latex allergy status; Z88.8 Allergy status to other drugs, medicaments and biological substances; Z91.018 Allergy to other foods; Z79.899 Other long term (current) drug therapy
CPT/HCPCS: 36415; 80048; 85652; 82009; 85025; 86140; 87040; 87070; 87205; 99283; 96365; 96366; J3370

== ENCOUNTER 2021-07-21 12:45 | Inpatient (IN) | payer MEDICARE, OTHER ==
[2021-07-21] MEDS ORDERED: Acetaminophen-Codeine 300-30mg TAB PO STA (13:18)
--- NOTE | 2021-07-21 13:24 | ED ---
General Adult HPI - General Chief complaint: Wound/Laceration Stated complaint: Feet pain Time Seen by Provider: 07/21/21 13:10 Source: patient, RN notes reviewed, old records reviewed Mode of arrival: wheelchair Limitations: no limitations - History of Present Illness Initial comments: 76-year-old female sent to the emergency room for admission by Dr. Raymundo for admission for cellulitis and bilateral foot pain. Patient was seen in the emergency room earlier today discharged to wound care and wound care sent patient back to the emergency room for admission. Wounds were dressed by wound care and patient is refusing for them to be undressed and evaluated this time. Patient states that she had an amputation in the middle of June of her fourth d igit on her left foot. She states she has chronic wounds to the toes of her right foot and may need amputations due to discoloration. Patient does have a history of vascular disease, diabetes, hypertension and renal disease. Patient requesting Tylenol 3 for pain, declining any shots -: week(s) Location: left, right, lower extremity (feet) Severity scale (1-10): 10 Quality: aching, sharp, constant Consistency: constant Improves with: none Associated Symptoms: denies other symptoms Treatments Prior to Arrival: other (wound care) - Related Data Home Medications Medication Instructions Recorded Confirmed Doxycycline Monohydrate 100 mg PO Q12H 07/21/21 07/21/21 Econazole Nitrate [Econazole 1 applic TOPICAL HS 07/21/21 07/21/21 Nitrate 1%] Insulin Lispro [humaLOG Kwikpen] 4 unit SQ ACHS 07/21/21 07/21/21 Metoprolol Tartrate 12.5 mg PO BID 07/21/21 07/21/21 Midodrine HCl [ProAmatine] 10 mg PO TID 07/21/21 07/21/21 Spironolactone 25 mg PO DAILY 07/21/21 07/21/21 metOLazone [Zaroxolyn] 2.5 mg PO DAILY 07/21/21 07/21/21 traMADol HCL 50 mg PO Q6H PRN 07/21/21 07/21/21 Previous Rx's Medication Instructions Recorded Furosemide [Lasix] 40 mg PO DAILY #0 tablet 06/24/21 Insulin Detemir (Levemir) [Levemir] 12 unit SQ HS ml 07/02/21 Pantoprazole [Protonix] 40 mg PO AC-BRKFST #0 tab 07/02/21 Allergies Allergy/AdvReac Type Severity Reaction Status Date / Time Corticosteroids Allergy Unknown Unknown Verified 07/21/21 13:42 (Glucocorticoids) azithromycin [From Zithromax] Allergy Anaphylaxis Verified 07/21/21 13:42 banana Allergy Unknown Verified 07/21/21 13:42 carisoprodol [From Soma] Allergy Unknown Verified 07/21/21 13:42 ciprofloxacin [From Cipro] Allergy Unknown Verified 07/21/21 13:42 cortisone [Cortisone] Allergy Unknown Verified 07/21/21 13:42 cyclobenzaprine HCl Allergy Unknown Verified 07/21/21 13:42 [From Flexeril] latex Allergy Rash/Hives Verified 07/21/21 13:42 Latex, Natural Rubber Allergy Rash/Hives Verified 07/21/21 13:42 levofloxacin [From Levaquin] Allergy Anaphylaxis Verified 07/21/21 13:42 Penicillins Allergy Anaphylaxis Verified 07/21/21 13:42 Review of Systems ROS Statement: Those systems with pertinent positive or pertinent negative responses have been documented in the HPI. ROS Other: All systems not noted in ROS Statement are negative. Past Medical History Past Medical History: Atrial Fibrillation, Coronary Artery Disease (CAD), Chest Pain / Angina, Heart Failure, Diabetes Mellitus, Eye Disorder, Hypertension, Myocardial Infarction ([place]), Osteoarthritis (OA), Pneumonia, Renal Disease, Vascular Disorder Additional Past Medical History / Comment(s): Pt recently admitted to [facility] on 06/16/21 with L foot cellulitis/L 4th toe amp and had peripheral vascular procedures with post hematoma and acute blood loss anemia. Other hx: NIDDM type II, neuropathy bilateral feet, 01-03-14 [place]/cardiac arrest/resp failure/intubation, CKD, chronic anemia, mild thrombocytopenia, PAD, UTIs, unsteady gait, FALLS, past L eye retinal bleed with surgery. Last Myocardial Infarction Date:: 01-03-14 History of Any Multi-Drug Resistant Organisms: None Reported Past Surgical History: Heart Catheterization, Heart Catheterization With Stent Additional Past Surgical History / Comment(s): 06/18/21 L 4th toe amputation, 06/2021 L fempop angiogram/L SFA atherectomy/PTBA, stent RCA 01-07-14, stent LAD 02/14/2019, L retinal bleed with surgery, bilateral cataract removal/lens implants, colonoscopy Past Anesthesia/Blood Transfusion Reactions: No Reported Reaction Date of Last Stent Placement:: 2018 Past Psychological History: No Psychological Hx Reported Smoking Status: Former smoker Past Alcohol Use History: None Reported Past Drug Use History: None Reported - Past Family History Father Family Medical History: Cancer, Diabetes Mellitus Additional Family Medical History / Comment(s): age 70 from lung cancer Mother Family Medical History: COPD Additional Family Medical History / Comment(s): age 83 emphysema General Exam Limitations: no limitations General appearance: alert, in no apparent distress Head exam: Present: atraumatic, normocephalic Eye exam: Present: normal appearance. Absent: scleral icterus, conjunctival injection ENT exam: Present: mucous membranes dry Neck exam: Present: normal inspection, full ROM. Absent: tenderness, meningismus Respiratory exam: Present: normal lung sounds bilaterally. Absent: respiratory distress, accessory muscle use Cardiovascular Exam: Present: regular rate GI/Abdominal exam: Present: soft. Absent: distended, tenderness, rigid Extremities exam: Present: tenderness (bilateral feet; dressed in gauze, patient refusing to allow wounds to be undressed to be assessed), normal capillary refill. Absent: calf tenderness Back exam: Present: normal inspection. Absent: tenderness, CVA tenderness (R), CVA tenderness (L), paraspinal tenderness, vertebral tenderness, rash noted Neurological exam: Present: alert, oriented X3 Psychiatric exam: Present: normal affect, normal mood Skin exam: Present: warm, dry. Absent: cyanosis, diaphoretic, petechiae, pallor Course Vital Signs 07/21/21 12:53 Temperature 97.1 F L Pulse Rate 87 Respiratory 16 Rate Blood Pressure 135/74 O2 Sat by Pulse 100 Oximetry Medical Decision Making - Medical Decision Making Patient was sent from wound care for admission and IV antibiotics for bilateral foot cellulitis and ulcers. Patient refusing to allow dressings to be removed for assessment. These dressings were placed by wound care today. I did speak with Dr Barrios who states patient was given vancomycin IV in the wound care center today and needs admission for IV antibiotics. She was given Tylenol 3 as requested for pain. Labs done at earlier visit in ER today show CRP of 4.2 and WBC count of 11.2. X-rays were ordered to rule out osteomyelitis and negative. Patient states that she lives alone and is unable to care for herself. She is agreeable to admission. Case discussed with Dr. Arnold Disposition Clinical Impression: Cellulitis of foot Disposition: ADMITTED IP TO THIS HOSP Referrals: Last Barrios MD [Primary Care Provider] - 1-2 days Decision Date: 07/21/21 Decision Time: 13:24
[2021-07-21] MEDS ORDERED: NALOXONE 0.4 MG/ML 1 ML VIAL IV PRN (13:33)
[2021-07-21] MEDS ORDERED: ACETAMINOPHEN TAB 325 MG TAB PO PRN (13:33)
--- NOTE | 2021-07-21 14:12 | XR ---
EXAMINATION TYPE: XR foot complete bilateral DATE OF EXAM: 07/21/2021 CLINICAL HISTORY: Nonhealing wound distal right foot with focal pain and swelling. Recent left toe am putation. TECHNIQUE: Frontal, lateral, and oblique images of the bilateral feet are obtained. COMPARISON: Left toe x-ray June 16, 2021 FINDINGS: Osseous structures are demineralized which is noted to lower radiographic sensitivity there is bandage or clothing-type material overlying the distal toes bilaterally. Interval amputation of the left fourth toe at the level of the metatarsophalangeal joint. No new bony destruction in the left toes. Large inferior calcaneal spur with moderate arterial small vessel vasc ular calcification is present. Mild diffuse subcutaneous edema. Right foot shows moderate narrowing a t the first metatarsophalangeal joint. No suspicious bony destruction. Small inferior calcaneal spur. More mild to moderate small vessel arterial vascular calcification. IMPRESSION: There is no convincing radiographic evidence for acute osteomyelitis in the distal right foot
[2021-07-21] MEDS ORDERED: traMADol 50 MG TAB PO PRN (20:28)
[2021-07-21 21:09] LABS: Glucose,Whole Blood 148 mg/dL (75-99)
[2021-07-21] MEDS: METOPROLOL TARTRATE 12.5 MG TAB PO SCH (21:43)
[2021-07-21] MEDS: INSULIN DETEMIR (LEVEMIR) 100 UNIT/ML SYR SQ SCH (21:43)
[2021-07-21] MEDS: INSULIN ASPART (NovoLOG) 100 UNIT/ML VIAL SQ SCH (21:44)
[2021-07-22 07:08] LABS: Glucose,Whole Blood 106 mg/dL (75-99)
--- NOTE | 2021-07-22 07:17 | P.CONS ---
History of Present Illness - Reason for Consult Consult date: 07/21/21 Bilateral lower extremity cellulitis Requesting physician: Pedro Pablo Fiore - Chief Complaint left foot wound and pain x days - History of Present Illness Patient is a 76-year-old female with a past medical history significant for left fourth toe amputation for gangrene by Dr. Loyola at the patient also have left SFA stenosis status post arthrectomy and drug-eluting b alloon angioplasty the patient has been following at wound care center for local wound care to the left fourth toe amputation site, patient was sent to the ER from the wound care center with concern for bilateral lower extremity cellulitis and wound to the left foot patient denies having any fever or any chills patient on presentation to the hospital did have a white count of 11.2 with a left shift sed rate was 31 BUN and creatinine were elevated patient did have a multiple antibiotic allergies patient has been admitted to hospital infectious disease was consulted for further management of antibiotic therapy patient been complaining of significant pain to bilateral foot especially to the left foot area and was refusing further dressing to be changed describing the pain to be more of a throbbing almost 7-8 out of 10 and no radiation denies having any foul-smelling drainage from the wound the Review of Systems Positive point has been mentioned in the HPI rest of the systems are negative Past Medical History Past Medical History: Atrial Fibrillation, Coronary Artery Disease (CAD), Chest Pain / Angina, Heart Failure, Diabetes Mellitus, Eye Disorder, Hypertension, Myocardial Infarction ([place]), Osteoarthritis (OA), Pneumonia, Renal Disease, Vascular Disorder Additional Past Medical History / Comment(s): Pt recently admitted to [facility] on 06/16/21 with L foot cellulitis/L 4th toe amp and had peripheral vascular procedures with post hematoma and acute blood loss anemia. Other hx: NIDDM type II, neuropathy bilateral feet, 01-03-14 [place]/cardiac arrest/resp failure/intubation, CKD, chronic anemia, mild thrombocytopenia, PAD, UTIs, unsteady gait, FALLS, past L eye retinal bleed with surgery. Last Myocardial Infarction Date:: 01-03-14 History of Any Multi-Drug Resistant Organisms: None Reported Past Surgical History: Heart Catheterization, Heart Catheterization With Stent Additional Past Surgical History / Comment(s): 06/18/21 L 4th toe amputation, 06/2021 L fempop angiogram/L SFA atherectomy/PTBA, stent RCA 01-07-14, stent LAD 02/14/2019, L retinal bleed with surgery, bilateral cataract removal/lens implants, colonoscopy Past Anesthesia/Blood Transfusion Reactions: No Reported Reaction Date of Last Stent Placement:: 2018 Past Psychological History: No Psychological Hx Reported Smoking Status: Former smoker Past Alcohol Use History: None Reported Past Drug Use History: None Reported - Past Family History Father Family Medical History: Cancer, Diabetes Mellitus Additional Family Medical History / Comment(s): age 70 from lung cancer Mother Family Medical History: COPD Additional Family Medical History / Comment(s): age 83 emphysema Medications and Allergies Home Medications Medication Instructions Recorded Confirmed Type Furosemide [Lasix] 40 mg PO DAILY #0 tablet 06/24/21 07/21/21 Rx Insulin Detemir (Levemir) [Levemir] 12 unit SQ HS ml 07/02/21 07/21/21 Rx Pantoprazole [Protonix] 40 mg PO AC-BRKFST #0 tab 07/02/21 07/21/21 Rx Doxycycline Monohydrate 100 mg PO Q12H 07/21/21 07/21/21 History Econazole Nitrate [Econazole 1 applic TOPICAL HS 07/21/21 07/21/21 History Nitrate 1%] Insulin Lispro [humaLOG Kwikpen] 4 unit SQ ACHS 07/21/21 07/21/21 History Metoprolol Tartrate 12.5 mg PO BID 07/21/21 07/21/21 History Midodrine HCl [ProAmatine] 10 mg PO TID 07/21/21 07/21/21 History Spironolactone 25 mg PO DAILY 07/21/21 07/21/21 History metOLazone [Zaroxolyn] 2.5 mg PO DAILY 07/21/21 07/21/21 History traMADol HCL 50 mg PO Q6H PRN 07/21/21 07/21/21 History Allergies Allergy/AdvReac Type Severity Reaction Status Date / Time Corticosteroids Allergy Unknown Unknown Verified 07/21/21 13:42 (Glucocorticoids) azithromycin [From Zithromax] Allergy Anaphylaxis Verified 07/21/21 13:42 banana Allergy Unknown Verified 07/21/21 13:42 carisoprodol [From Soma] Allergy Unknown Verified 07/21/21 13:42 ciprofloxacin [From Cipro] Allergy Unknown Verified 07/21/21 13:42 cortisone [Cortisone] Allergy Unknown Verified 07/21/21 13:42 cyclobenzaprine HCl Allergy Unknown Verified 07/21/21 13:42 [From Flexeril] latex Allergy Rash/Hives Verified 07/21/21 13:42 Latex, Natural Rubber Allergy Rash/Hives Verified 07/21/21 13:42 levofloxacin [From Levaquin] Allergy Anaphylaxis Verified 07/21/21 13:42 Penicillins Allergy Anaphylaxis Verified 07/21/21 13:42 Physical Exam Vitals: Vital Signs Temp Pulse Resp BP Pulse Ox 07/21/21 12:53 97.1 F L 87 16 135/74 100 Intake and Output 07/21/21 07/21/21 07/21/21 06:59 14:59 22:59 Other: Weight 81.647 kg GENERAL DESCRIPTION: An elderly female lying in bed, no distress. No tachypnea or accessory muscle of respiration use. HEENT: Shows Pallor , no scleral icterus. Oral mucous membrane is dry. No pharyngeal erythema or thrush NECK: Trachea central, no thyromegaly. LUNGS: Unlabored breathing. Clear to auscultation anteriorly. No wheeze or crackle. HEART: S1, S2, regular rate and rhythm. No loud murmur ABDOMEN: Soft, no tenderness , guarding or rigidity, no organomegaly EXTREMITIES: Bilateral lower extremity swelling redness to the left leg did have a left big toe tip with a necrotic area SKIN: No rash, no masses palpable. NEUROLOGICAL: The patient is awake, alert, oriented x3, mood and affect normal. Assessment and Plan (1) Cellulitis of foot Current Visit: Yes Status: Acute Code(s): L03.119 - CELLULITIS OF UNSPECIFIED PART OF LIMB SNOMED Code(s): 811303961 Plan: 1patient presented to hospital with worsening pain to the left foot and this patient did have a nonhealing wound to the left fourth toe amputation site and now have evidence of some gangrenous changes to the left big toe with associated swelling redness to the left leg believed to cover for both gram-positive skin terra as well as gram-negative to be the etiology of this cellulitis and concern for possible deep infection/osteomyelitis at the site of 4th toe amputation site. 2patient with multiple antibiotic allergies that would limit the number of antibiotics safe to use. 3renal insufficiency and high risk of nephrotoxicity from vancomycin. 4we will start the patient cefepime 2 g every 12hr and daptomycin. 5await vascular surgeon evaluation and deep culture to guide further antibiotic therapy We will follow on clinical condition and cultures to further adjust medication if needed Thank you for this consultation will follow this patient along with you Time with Patient: Greater than 30
[2021-07-22] MEDS: INSULIN ASPART (NovoLOG) 100 UNIT/ML VIAL SQ SCH ×4 (08:12→21:17)
[2021-07-22] MEDS: METOPROLOL TARTRATE 12.5 MG TAB PO SCH ×2 (08:21→21:18)
[2021-07-22] MEDS: FUROSEMIDE 40 MG TAB PO SCH (08:21)
[2021-07-22] MEDS: DAPTOmycin 350 MG in SODIUM CHLORIDE 0.9% 50 ML IVPB SCH (08:21)
[2021-07-22] MEDS: metOLazone 2.5 MG TAB PO SCH (08:21)
[2021-07-22] MEDS: SPIRONOLACTONE 25 MG TAB PO SCH (08:21)
[2021-07-22] MEDS: PANTOPRAZOLE 40 MG TABLET PO SCH (08:21)
[2021-07-22] MEDS: MIDODRINE 5 MG TAB PO SCH ×3 (08:21→17:13)
--- NOTE | 2021-07-22 08:29 | P.HPIM ---
History of Present Illness H&P Date: 07/22/21 Chief Complaint: Foot infection with gangrene This is a history of physical 68-year-old white female with known history of atrial fibrillation history of GI bleeding diabetes with neuropathy and diabetic foot who recently had agitation of toe with SFA stenosis which was repaired by Dr. Loyola. However the foot has not been healing properly and she is here due to the fact that it is not been healing. We had a long discussion with the patient and she most likely need some form of amputation to help her heel. If not, I had a long discussion with Dr. Raymundo who stated that since the foot has such poor prognostic indicator that hospice would also be an option if she just chooses not to have surgery Review of Systems Constitutional: Denies chills, Denies fever Eyes: denies blurred vision, denies pain Ears, nose, mouth and throat: Denies headache, Denies sore throat Cardiovascular: Denies chest pain, Denies shortness of breath Respiratory: Denies cough Past Medical History Past Medical History: Atrial Fibrillation, Coronary Artery Disease (CAD), Chest Pain / Angina, Heart Failure, Diabetes Mellitus, Eye Disorder, Hypertension, Myocardial Infarction ([place]), Osteoarthritis (OA), Pneumonia, Renal Disease, Vascular Disorder Additional Past Medical History / Comment(s): Pt recently admitted to [facility] on 06/16/21 with L foot cellulitis/L 4th toe amp and had peripheral vascular procedures with post hematoma and acute blood loss anemia. Other hx: NIDDM type II, neuropathy bilateral feet, 01-03-14 [place]/cardiac arrest/resp failure/intubation, CKD, chronic anemia, mild thrombocytopenia, PAD, UTIs, unsteady gait, FALLS, past L eye retinal bleed with surgery. Last Myocardial Infarction Date:: 01-03-14 History of Any Multi-Drug Resistant Organisms: None Reported Past Surgical History: Heart Catheterization, Heart Catheterization With Stent Additional Past Surgical History / Comment(s): 06/18/21 L 4th toe amputation, 06/2021 L fempop angiogram/L SFA atherectomy/PTBA, stent RCA 01-07-14, stent LAD 02/14/2019, L retinal bleed with surgery, bilateral cataract removal/lens implants, colonoscopy Past Anesthesia/Blood Transfusion Reactions: No Reported Reaction Date of Last Stent Placement:: 2018 Past Psychological History: No Psychological Hx Reported Smoking Status: Former smoker Past Alcohol Use History: None Reported Past Drug Use History: None Reported - Past Family History Father Family Medical History: Cancer, Diabetes Mellitus Additional Family Medical History / Comment(s): age 70 from lung cancer Mother Family Medical History: COPD Additional Family Medical History / Comment(s): age 83 emphysema Medications and Allergies Home Medications Medication Instructions Recorded Confirmed Type Furosemide [Lasix] 40 mg PO DAILY #0 tablet 06/24/21 07/21/21 Rx Insulin Detemir (Levemir) [Levemir] 12 unit SQ HS ml 07/02/21 07/21/21 Rx Pantoprazole [Protonix] 40 mg PO AC-BRKFST #0 tab 07/02/21 07/21/21 Rx Doxycycline Monohydrate 100 mg PO Q12H 07/21/21 07/21/21 History Econazole Nitrate [Econazole 1 applic TOPICAL HS 07/21/21 07/21/21 History Nitrate 1%] Insulin Lispro [humaLOG Kwikpen] 4 unit SQ ACHS 07/21/21 07/21/21 History Metoprolol Tartrate 12.5 mg PO BID 07/21/21 07/21/21 History Midodrine HCl [ProAmatine] 10 mg PO TID 07/21/21 07/21/21 History Spironolactone 25 mg PO DAILY 07/21/21 07/21/21 History metOLazone [Zaroxolyn] 2.5 mg PO DAILY 07/21/21 07/21/21 History traMADol HCL 50 mg PO Q6H PRN 07/21/21 07/21/21 History Allergies Allergy/AdvReac Type Severity Reaction Status Date / Time Corticosteroids Allergy Unknown Unknown Verified 07/21/21 13:42 (Glucocorticoids) azithromycin [From Zithromax] Allergy Anaphylaxis Verified 07/21/21 13:42 banana Allergy Unknown Verified 07/21/21 13:42 carisoprodol [From Soma] Allergy Unknown Verified 07/21/21 13:42 ciprofloxacin [From Cipro] Allergy Unknown Verified 07/21/21 13:42 cortisone [Cortisone] Allergy Unknown Verified 07/21/21 13:42 cyclobenzaprine HCl Allergy Unknown Verified 07/21/21 13:42 [From Flexeril] latex Allergy Rash/Hives Verified 07/21/21 13:42 Latex, Natural Rubber Allergy Rash/Hives Verified 07/21/21 13:42 levofloxacin [From Levaquin] Allergy Anaphylaxis Verified 07/21/21 13:42 Penicillins Allergy Anaphylaxis Verified 07/21/21 13:42 Physical Exam Vitals: Vital Signs Temp Pulse Pulse Resp BP BP Pulse Ox 07/22/21 01:08 98.4 F 64 18 102/78 98 07/21/21 20:00 98.4 F 79 16 143/70 97 07/21/21 19:57 82 16 135/65 100 07/21/21 12:53 97.1 F L 87 16 135/74 100 Intake and Output 07/21/21 07/22/21 07/22/21 22:59 06:59 14:59 Other: # Voids 1 Weight 81.647 kg - Constitutional General appearance: cooperative, no acute distress - EENT Eyes: EOMI - Neck Neck: no lymphadenopathy - Respiratory Respiratory: bilateral: CTA - Cardiovascular Rhythm: irregularly irregular Heart sounds: normal: S1, S2 Abnormal Heart Sounds: no S3 Gallop - Gastrointestinal General gastrointestinal: soft, no tenderness - Integumentary Integumentary: cellulitis Results Labs: Abnormal Lab Results - Last 24 Hours (Table) 07/21/21 07/22/21 Range/Units 21:06 07:06 POC Glucose (mg/dL) 148 H 106 H (75-99) mg/dL Thrombosis Risk Factor Assmnt - Choose All That Apply Any of the Below Risk Factors Present?: Yes Each Factor Represents 1 point: Obesity (BMI >25) Each Risk Factor Represents 3 Points: Age 75 years or older Thrombosis Risk Factor Assessment Total Risk Factor Score: 4 Thrombosis Risk Factor Assessment Level: Moderate Risk Assessment and Plan (1) Cellulitis of foot Current Visit: Yes Status: Acute Code(s): L03.119 - CELLULITIS OF UNSPECIFIED PART OF LIMB SNOMED Code(s): 457610343 (2) Amputated toe of left foot Current Visit: No Status: Acute Code(s): S98.132A - COMPLETE TRAUMATIC AMPUTATION OF ONE LEFT LESSER TOE, INIT SNOMED Code(s): 710011179 (3) Atrial fibrillation Current Visit: No Status: Acute Code(s): I48.91 - UNSPECIFIED ATRIAL FIBRILLATION SNOMED Code(s): 54757554 (4) Congestive heart failure Current Visit: No Status: Acute Code(s): I50.9 - HEART FAILURE, UNSPECIFIED SNOMED Code(s): 80117768 (5) Insulin dependent type 2 diabetes mellitus Current Visit: No Status: Acute Code(s): E11.9 - TYPE 2 DIABETES MELLITUS WITHOUT COMPLICATIONS; Z79.4 - NATIONAL INSURANCE OFFICER (CURRENT) USE OF INSULIN SNOMED Code(s): 031636902 (6) Weakness Current Visit: No Status: Acute Code(s): R53.1 - WEAKNESS SNOMED Code(s): 09379972 Plan: Reconcile medications per [facility] antibiotic treatment. Prognosis is guarded secondary to her foot nonhealing. Consult infectious disease with vascular surgery. I suspect patient will need some form of amputation. See orders otherwise
[2021-07-22] MEDS ORDERED: CEFEPIME 2 GM in SODIUM CHLORIDE 0.9% 100 ML IVPB SCH (09:00)
[2021-07-22] MEDS: Acetaminophen-Codeine 300-30mg TAB PO PRN ×2 (09:34→17:13)
[2021-07-22] MEDS: CEFEPIME 1 GM in SODIUM CHLORIDE 0.9% 50 ML IVPB SCH ×2 (09:34→21:17)
[2021-07-22 11:31] LABS: Glucose,Whole Blood 216 mg/dL (75-99)
--- NOTE | 2021-07-22 15:22 | P.GSCN ---
History of Present Illness Consult date: 07/22/21 History of present illness: Vicky is a 76-year-old female who presented to the hospital for her left lower extremity pain. She has been having this pain for a long while. She has a fourth toe amputation that is nonhealing. She was seen in wound care for this. We saw her in the office approximately one week ago she states she is essentially the same as she was then but decided to come in the hospital Past Medical History Past Medical History: Atrial Fibrillation, Coronary Artery Disease (CAD), Chest Pain / Angina, Heart Failure, Diabetes Mellitus, Eye Disorder, Hypertension, Myocardial Infarction (AR), Osteoarthritis (OA), Pneumonia, Renal Disease, Vascular Disorder Additional Past Medical History / Comment(s): Pt recently admitted to [facility] on 06/16/21 with L foot cellulitis/L 4th toe amp and had peripheral vascular procedures with post hematoma and acute blood loss anemia. Other hx: NIDDM type II, neuropathy bilateral feet, 01-03-14 AR/cardiac arrest/resp failure/intubation, CKD, chronic anemia, mild thrombocytopenia, PAD, UTIs, unsteady gait, FALLS, past L eye retinal bleed with surgery. Last Myocardial Infarction Date:: 01-03-14 History of Any Multi-Drug Resistant Organisms: None Reported Past Surgical History: Heart Catheterization, Heart Catheterization With Stent Additional Past Surgical History / Comment(s): 06/18/21 L 4th toe amputation, 06/2021 L fempop angiogram/L SFA atherectomy/PTBA, stent RCA 01-07-14, stent LAD 02/14/2019, L retinal bleed with surgery, bilateral cataract removal/lens implants, colonoscopy Past Anesthesia/Blood Transfusion Reactions: No Reported Reaction Date of Last Stent Placement:: 2018 Past Psychological History: No Psychological Hx Reported Smoking Status: Former smoker Past Alcohol Use History: None Reported Past Drug Use History: None Reported - Past Family History Father Family Medical History: Cancer, Diabetes Mellitus Additional Family Medical History / Comment(s): age 70 from lung cancer Mother Family Medical History: COPD Additional Family Medical History / Comment(s): age 83 emphysema Medications and Allergies Home Medications Medication Instructions Recorded Confirmed Type Furosemide [Lasix] 40 mg PO DAILY #0 tablet 06/24/21 07/21/21 Rx Insulin Detemir (Levemir) [Levemir] 12 unit SQ HS ml 07/02/21 07/21/21 Rx Pantoprazole [Protonix] 40 mg PO AC-BRKFST #0 tab 07/02/21 07/21/21 Rx Doxycycline Monohydrate 100 mg PO Q12H 07/21/21 07/21/21 History Econazole Nitrate [Econazole 1 applic TOPICAL HS 07/21/21 07/21/21 History Nitrate 1%] Insulin Lispro [humaLOG Kwikpen] 4 unit SQ ACHS 07/21/21 07/21/21 History Metoprolol Tartrate 12.5 mg PO BID 07/21/21 07/21/21 History Midodrine HCl [ProAmatine] 10 mg PO TID 07/21/21 07/21/21 History Spironolactone 25 mg PO DAILY 07/21/21 07/21/21 History metOLazone [Zaroxolyn] 2.5 mg PO DAILY 07/21/21 07/21/21 History traMADol HCL 50 mg PO Q6H PRN 07/21/21 07/21/21 History Allergies Allergy/AdvReac Type Severity Reaction Status Date / Time Corticosteroids Allergy Unknown Unknown Verified 07/21/21 13:42 (Glucocorticoids) azithromycin [From Zithromax] Allergy Anaphylaxis Verified 07/21/21 13:42 banana Allergy Unknown Verified 07/21/21 13:42 carisoprodol [From Soma] Allergy Unknown Verified 07/21/21 13:42 ciprofloxacin [From Cipro] Allergy Unknown Verified 07/21/21 13:42 cortisone [Cortisone] Allergy Unknown Verified 07/21/21 13:42 cyclobenzaprine HCl Allergy Unknown Verified 07/21/21 13:42 [From Flexeril] latex Allergy Rash/Hives Verified 07/21/21 13:42 Latex, Natural Rubber Allergy Rash/Hives Verified 07/21/21 13:42 levofloxacin [From Levaquin] Allergy Anaphylaxis Verified 07/21/21 13:42 Penicillins Allergy Anaphylaxis Verified 07/21/21 13:42 Surgical - Exam Vital Signs Temp Pulse Resp BP Pulse Ox 97.1 F L 87 16 135/74 100 07/21/21 12:53 07/21/21 12:53 07/21/21 12:53 07/21/21 12:53 07/21/21 12:53 Gen. is a pleasant cooperative elderly female in no acute distress. Expiratory wheezing Abdomen appears soft. Extremity show no clubbing. There is bilateral lower extremity edema. Left fourth toe incision site nonhealing. There is dry gangrene to the tips of the first toes bilaterally. No erythema or drainage. No evidence of overt infection Results - Labs Abnormal Lab Results - Last 24 Hours (Table) 07/21/21 07/22/21 07/22/21 Range/Units 21:06 07:06 11:25 POC Glucose (mg/dL) 148 H 106 H 216 H (75-99) mg/dL Assessment and Plan Assessment: Nonhealing left lower extremity wound, peripheral arterial disease, in frapopliteal disease Plan: Long discussion was had with the patient regarding possible options including no intervention at this time. I do not necessarily think she needs to go forward hospice if she undergoes no intervention however we would be needing to appropriate control her pain and try to keep the wound from becoming infected itself. I do not feel the wound itself appears to have outward infection overtly. No evidence of wet gangrene at this point. The other conversation would be regarding a below-knee amputation as with her infrapopliteal disease of do not believe a transmetatarsal imitation would heal. She is very had revascularization attempts to improve her inflow through the superficial femoral artery. No further infrapopliteal intervention available per the last images. At this point she thinks she would like to go forward with a amputation but she is not fully committed. She is not certain if this is inflammation was do at this point her weight to do. We discussed that we will need medical and cardiac clearance in order to afford an amputation given her overall medical history. She seemingly understands and would like to undergo this
[2021-07-22 16:41] LABS: Glucose,Whole Blood 89 mg/dL (75-99)
[2021-07-22 20:27] LABS: Glucose,Whole Blood 154 mg/dL (75-99)
[2021-07-22] MEDS: INSULIN DETEMIR (LEVEMIR) 100 UNIT/ML SYR SQ SCH (21:17)
[2021-07-23] MEDS: Acetaminophen-Codeine 300-30mg TAB PO PRN ×4 (03:22→21:25)
[2021-07-23 06:46] LABS: Glucose,Whole Blood 130 mg/dL (75-99)
--- NOTE | 2021-07-23 07:34 | P.PN ---
Subjective Progress Note Date: 07/22/21 Principal diagnosis: Left foot wound and cellulitis Patient is a 76 year old female with multiple comorbidities in this patient who is status post left fourth toe amputation for gangrene subsequent nonhealing wound the patient did have a significant PAD to the left leg, admitted from the wound care center concerning for a nonhealing wound and cellulitis. On today's evaluation that is 07/22/2021, the patient denies having any fever or any chills, the patient been to the left foot is slightly controlled with current pain medication and denies having any chest pain or shortness of breath or cough no abdominal pain and no diarrhea Objective - Vital Signs Vital signs: Vital Signs Temp 98.1 F 07/22/21 08:00 Pulse 66 07/22/21 08:00 Resp 18 07/22/21 01:08 BP 120/47 07/22/21 08:00 Pulse Ox 98 07/22/21 08:00 Intake & Output 07/21/21 07/22/21 07/22/21 18:59 06:59 18:59 Output Total 950 Balance -950 Weight 81.647 kg 81.647 kg Output: Urine 950 Other: # Voids 1 - Exam GENERAL DESCRIPTION: An elderly female lying in bed in no distress RESPIRATORY SYSTEM: Unlabored breathing , decreased breath sounds at bases HEART: S1 S2 regular rate and rhythm , ABDOMEN: Soft , no tenderness EXTREMITIES: Left fourth toe amputation site wound dull with some necrotic area, redness to the leg is slightly decreased - Labs Labs: Abnormal Lab Results - Last 24 Hours (Table) 07/21/21 07/22/21 07/22/21 Range/Units 21:06 07:06 11:25 POC Glucose (mg/dL) 148 H 106 H 216 H (75-99) mg/dL Assessment and Plan (1) Cellulitis of foot Current Visit: Yes Status: Acute Code(s): L03.119 - CELLULITIS OF UNSPECIFIED PART OF LIMB SNOMED Code(s): 284775149 Plan: 1patient presented to hospital with worsening pain to the left foot and this patient did have a nonhealing wound to the left fourth toe amputation site and now have evidence of some gangrenous changes to the left big toe with associated swelling redness to the left leg believed to cover for both gram-positive skin terra as well as gram-negative to be the etiology of this cellulitis and concern for possible deep infection/osteomyelitis at the site of 4th toe amputation site. 2patient with multiple antibiotic allergies that would limit the number of antibiotics safe to use. 3renal insufficiency and high risk of nephrotoxicity from vancomycin. 4 patient to continue with cefepime 2 g every 12hr and daptomycin. 5await vascular surgeon evaluation and deep culture to guide further antibiotic therapy Time with Patient: Less than 30
[2021-07-23] MEDS: INSULIN ASPART (NovoLOG) 100 UNIT/ML VIAL SQ SCH ×4 (07:47→20:10)
[2021-07-23] MEDS: DAPTOmycin 350 MG in SODIUM CHLORIDE 0.9% 50 ML IVPB SCH ×2 (07:51→07:53)
[2021-07-23] MEDS: METOPROLOL TARTRATE 12.5 MG TAB PO SCH ×2 (07:52→20:35)
[2021-07-23] MEDS: MIDODRINE 5 MG TAB PO SCH ×3 (07:52→17:17)
[2021-07-23] MEDS: SPIRONOLACTONE 25 MG TAB PO SCH (07:52)
[2021-07-23] MEDS: PANTOPRAZOLE 40 MG TABLET PO SCH (07:52)
[2021-07-23] MEDS: FUROSEMIDE 40 MG TAB PO SCH (07:52)
[2021-07-23] MEDS: metOLazone 2.5 MG TAB PO SCH (07:53)
--- NOTE | 2021-07-23 08:42 | P.CRDCN ---
History of Present Illness Consult date: 07/23/21 History of present illness: HISTORY OF PRESENT ILLNESS: This is a 76-year-old female with a past medical history significant for paroxysmal atrial fibrillation, GI bleed, coronary artery disease, diabetes, hypertension, hyperlipidemia, and congestive heart failure. Patient follows in the office with Dr. Chavez. We have been asked to see the patient in consultation for surgical clearance. Patient examined at the bedside. Patient was sent to the hospital from the wound care clinic secondary to her bilateral foot wounds. The patient does have a history of left 4th toe amputation in [place] [address] Loyola. Plans are underway for left BKA in the near future. The patient denies any chest pain or pressure. Denies SOB. Denies dizziness or lightheadedness. Vital signs are stable. * EKG: not available at the time of this dictation * Laboratory data: not available at the time of this dictation * Current home cardiac medications include Zaroxolyn 2.5 mg daily, spironolactone 25 mg daily, metoprolol tartrate 12.5 mg twice a day, Lasix 40 mg daily, and Midodrine 10mg TID * Most recent echocardiogram obtained in March 2021 revealed ejection fraction 55-60%, moderate to severe mitral regurgitation, moderate tricuspid regurgitation, and moderate pulmonary hypertension * Cardiac catheterization history: February 2019 revealing 70-80% stenosis of the mid LAD with [id number] diffuse disease. Patent stent to the RCA. Patient underwent stenting of the LAD at that time by Dr. Benavidez. REVIEW OF SYSTEMS: At the time of my exam: CONSTITUTIONAL: Denies fever or chills. HEENT: Denies blurred vision, vision changes, or eye pain. Denies hemoptysis CARDIOVASCULAR: Denies chest pain. Denies orthopnea. Denies PND. Denies palpitations RESPIRATORY: Denies shortness of breath. GASTROINTESTINAL: Denies abdominal pain. Denies nausea or vomiting. HEMATOLOGIC: Denies bleeding disorders. GENITOURINARY: Denies any blood in urine. SKIN: Denies pruitis. Denies rash. PHYSICAL EXAM: VITAL SIGNS: Reviewed. GENERAL: Well-developed in no acute distress. HEENT: Head is normocephalic. Pupils are equal, round. Sclerae anicteric. Mucous membranes of the mouth are moist. Neck supple. No JVD or thyromegaly LUNGS: Respirations even and unlabored. Lungs essentially clear to auscultation bilaterally. HEART: Regular rate and rhythm. S1 and S2 heard. ABDOMEN: Soft. Nondistended. Nontender. EXTREMITIES: Normal range of motion. Bilateral lower extremity edema present. Palpable pulses on right foot. Unable to put 8 pulses on left foot. Right great toe appears necrotic. Tips of left toes appear necrotic. NEUROLOGIC: Awake and alert. Oriented x 3. ASSESSMENT: Nonhealing left lower extremity wound, peripheral arterial disease, infrapopliteal disease Paroxysmal atrial fibrillation, not on anticoagulation secondary to GI bleed Coronary artery disease with previous stenting to RCA and LAD History of GI bleeding Hypertension Hyperlipidemia Chronic heart failure with preserved ejection fraction PLAN: 2D echo from earlier this year reviewed Patient has no complaints of angina and is clinically not in heart failure Obtain EKG Patient to undergo left BKA with vascular surgery in the near future Patient is at higher risk due to her cardiac history. However, there are no absolute contraindications to undergo go surgery from a cardiac standpoint Further recommendations pending patient's course Nurse practitioner note has been reviewed by physician. Signing provider agrees with the documented findings, assessment, and plan of care. Past Medical History Past Medical History: Atrial Fibrillation, Coronary Artery Disease (CAD), Chest Pain / Angina, Heart Failure, Diabetes Mellitus, Eye Disorder, Hypertension, Myocardial Infarction (ME), Osteoarthritis (OA), Pneumonia, Renal Disease, Vascular Disorder Additional Past Medical History / Comment(s): Pt recently admitted to [facility] on 06/16/21 with L foot cellulitis/L 4th toe amp and had peripheral vascular procedures with post hematoma and acute blood loss anemia. Other hx: NIDDM type II, neuropathy bilateral feet, 01-03-14 ME/cardiac arrest/resp failure/intubation, CKD, chronic anemia, mild thrombocytopenia, PAD, UTIs, unsteady gait, FALLS, past L eye retinal bleed with surgery. Last Myocardial Infarction Date:: 01-03-14 History of Any Multi-Drug Resistant Organisms: None Reported Past Surgical History: Heart Catheterization, Heart Catheterization With Stent Additional Past Surgical History / Comment(s): 06/18/21 L 4th toe amputation, 06/2021 L fempop angiogram/L SFA atherectomy/PTBA, stent RCA 01-07-14, stent LAD 02/14/2019, L retinal bleed with surgery, bilateral cataract removal/lens implants, colonoscopy Past Anesthesia/Blood Transfusion Reactions: No Reported Reaction Date of Last Stent Placement:: 2018 Past Psychological History: No Psychological Hx Reported Smoking Status: Former smoker Past Alcohol Use History: None Reported Past Drug Use History: None Reported - Past Family History Father Family Medical History: Cancer, Diabetes Mellitus Additional Family Medical History / Comment(s): age 70 from lung cancer Mother Family Medical History: COPD Additional Family Medical History / Comment(s): age 83 emphysema Medications and Allergies Home Medications Medication Instructions Recorded Confirmed Type Furosemide [Lasix] 40 mg PO DAILY #0 tablet 06/24/21 07/21/21 Rx Insulin Detemir (Levemir) [Levemir] 12 unit SQ HS ml 07/02/21 07/21/21 Rx Pantoprazole [Protonix] 40 mg PO AC-BRKFST #0 tab 07/02/21 07/21/21 Rx Doxycycline Monohydrate 100 mg PO Q12H 07/21/21 07/21/21 History Econazole Nitrate [Econazole 1 applic TOPICAL HS 07/21/21 07/21/21 History Nitrate 1%] Insulin Lispro [humaLOG Kwikpen] 4 unit SQ ACHS 07/21/21 07/21/21 History Metoprolol Tartrate 12.5 mg PO BID 07/21/21 07/21/21 History Midodrine HCl [ProAmatine] 10 mg PO TID 07/21/21 07/21/21 History Spironolactone 25 mg PO DAILY 07/21/21 07/21/21 History metOLazone [Zaroxolyn] 2.5 mg PO DAILY 07/21/21 07/21/21 History traMADol HCL 50 mg PO Q6H PRN 07/21/21 07/21/21 History Allergies Allergy/AdvReac Type Severity Reaction Status Date / Time Corticosteroids Allergy Unknown Unknown Verified 07/21/21 13:42 (Glucocorticoids) azithromycin [From Zithromax] Allergy Anaphylaxis Verified 07/21/21 13:42 banana Allergy Unknown Verified 07/21/21 13:42 carisoprodol [From Soma] Allergy Unknown Verified 07/21/21 13:42 ciprofloxacin [From Cipro] Allergy Unknown Verified 07/21/21 13:42 cortisone [Cortisone] Allergy Unknown Verified 07/21/21 13:42 cyclobenzaprine HCl Allergy Unknown Verified 07/21/21 13:42 [From Flexeril] latex Allergy Rash/Hives Verified 07/21/21 13:42 Latex, Natural Rubber Allergy Rash/Hives Verified 07/21/21 13:42 levofloxacin [From Levaquin] Allergy Anaphylaxis Verified 07/21/21 13:42 Penicillins Allergy Anaphylaxis Verified 07/21/21 13:42 Physical Exam Vitals: Vital Signs Temp Pulse Resp BP Pulse Ox 07/23/21 01:47 98.3 F 67 17 109/57 98 07/22/21 19:32 98.6 F 65 17 124/62 97 07/22/21 14:00 98.4 F 64 131/65 99 Results Current Medications Generic Name Dose Route Start Last Admin Trade Name Freq PRN Reason Stop Dose Admin Acetaminophen 650 mg 07/21/21 13:33 07/21/21 21:43 Acetaminophen Tab 325 Mg Tab PO 650 mg Q6HR PRN Administration Mild Pain or Fever > 100.5 Acetaminophen/Codeine Phosphate 1 each 07/22/21 09:21 07/23/21 03:22 Acetaminophen-Codeine 300-30mg Tab PO 1 each Q4HR PRN Administration Pain Furosemide 40 mg 07/22/21 09:00 07/23/21 07:52 Furosemide 40 Mg Tab PO 40 mg DAILY GARRY Administration Daptomycin 350 mg/ Sodium 50 mls @ 100 mls/hr 07/22/21 08:00 07/23/21 07:53 Chloride IVPB 100 mls/hr Q24H GARRY Administration Protocol Cefepime HCl 1 gm/ Sodium 50 mls @ 12.5 mls/hr 07/22/21 09:00 07/22/21 21:17 Chloride IVPB 12.5 mls/hr Q12HR GARRY Administration Insulin Aspart 0 unit 07/21/21 21:00 07/23/21 07:47 Insulin Aspart (Novolog) 100 Unit/Ml Vial SQ Not Given ACHS GARRY Protocol Insulin Detemir 12 unit 07/21/21 21:00 07/22/21 21:17 Insulin Detemir (Levemir) 100 Unit/Ml Syr SQ 12 unit HS GARRY Administration Metolazone 2.5 mg 07/22/21 09:00 07/23/21 07:53 Metolazone 2.5 Mg Tab PO 2.5 mg DAILY GARRY Administration Metoprolol Tartrate 12.5 mg 07/21/21 21:00 07/23/21 07:52 Metoprolol Tartrate 12.5 Mg Tab PO 12.5 mg BID GARRY Administration Midodrine 10 mg 07/22/21 07:30 07/23/21 07:52 Midodrine 5 Mg Tab PO 10 mg AC-TID GARRY Administration Naloxone HCl 0.2 mg 07/21/21 13:33 Naloxone 0.4 Mg/Ml 1 Ml Vial IV Q2M PRN Opioid Reversal Pantoprazole Sodium 40 mg 07/22/21 07:30 07/23/21 07:52 Pantoprazole 40 Mg Tablet PO 40 mg AC-BRKFST GARRY Administration Spironolactone 25 mg 07/22/21 09:00 07/23/21 07:52 Spironolactone 25 Mg Tab PO 25 mg DAILY GARRY Administration Tramadol HCl 50 mg 07/21/21 20:28 Tramadol 50 Mg Tab PO Q6H PRN Moderate Pain
[2021-07-23 10:03] LABS: African American GFR (CKD) 26 (>60 ml/min/1.73 sqM); Anion Gap 8 mmol/L; Blood Urea Nitrogen 61 mg/dL (7-17); C Reactive Protein 4.9 mg/dL (<1.0); Calcium 8.6 mg/dL (8.4-10.2); Carbon Dioxide 21 mmol/L (22-30); Chloride 106 mmol/L (98-107); Glucose 120 mg/dL (74-99); Non-African American GFR(CKD) 23 (>60 ml/min/1.73 sqM); Potassium 5.4 mmol/L (3.5-5.1); Sodium 135 mmol/L (137-145)
--- NOTE | 2021-07-23 10:23 | P.PN ---
Subjective Progress Note Date: 07/23/21 Principal diagnosis: Left foot pain, peripheral arterial disease Patient was seen and examined as a follow-up. She has a history of left inferolateral popliteal disease status post revascularization in June of this year with Dr. Ramos. She also underwent a left fourth toe amputation which has not been healing. Patient is agreeable to left [id number] amputation. She denies any shortness of breath, chest pain, abdominal pain, nausea, vomiting or fever or chills. Objective - Vital Signs Vital signs: Vital Signs Temp 98.3 F 07/23/21 01:47 Pulse 67 07/23/21 01:47 Resp 17 07/23/21 01:47 BP 109/57 07/23/21 01:47 Pulse Ox 98 07/23/21 01:47 Intake & Output 07/22/21 07/23/21 07/23/21 18:59 06:59 18:59 Output Total 950 Balance -950 Output: Urine 950 - Exam General appearance: The patient is alert, oriented, appears in no acute distress. HET: Head is normocephalic and atraumatic. Pupils are equal and reactive. Neck: Supple without lymphadenopathy. Trachea midline. Heart: S1 S2. Regular rate and rhythm. Lungs: Clear to auscultation bilaterally. Abdomen: Soft, nontender, nondistended. Extremities: Dry gangrene to bilateral tips of great toes. Left foot fourth toe amputation site which are gangrene, nonhealing. Left paper machine backtender to palpation. Nonpalpable dorsalis pedis and posterior tibialis pulse. Neurological: No focal deficits. - Labs CBC & Chem 7: 07/23/21 09:37 Labs: Abnormal Lab Results - Last 24 Hours (Table) 07/22/21 07/22/21 07/23/21 Range/Units 11:25 20:25 06:45 Sodium (137-145) mmol/L Potassium (3.5-5.1) mmol/L Carbon Dioxide (22-30) mmol/L BUN (7-17) mg/dL Creatinine (0.52-1.04) mg/dL Glucose (74-99) mg/dL POC Glucose (mg/dL) 216 H 154 H 130 H (75-99) mg/dL C-Reactive Protein (<1.0) mg/dL 05/12/22 Range/Units 09:37 Sodium 135 L (137-145) mmol/L Potassium 5.4 H (3.5-5.1) mmol/L Carbon Dioxide 21 L (22-30) mmol/L BUN 61 H (7-17) mg/dL Creatinine 2.03 H (0.52-1.04) mg/dL Glucose 120 H (74-99) mg/dL POC Glucose (mg/dL) (75-99) mg/dL C-Reactive Protein 4.9 H (<1.0) mg/dL Assessment and Plan Assessment: 1. Nonhealing left lower extremity wound, peripheral arterial disease, infrapopliteal disease 2. Proximal atrial fibrillation, not on anticoagulation secondary to GI bleed 3. Coronary artery disease with previous stenting 4. History of GI bleed 5. Hypertension 6. Hyperlipidemia 7. Chronic heart failure Plan: 1. Consult to cardiology for cardiac clearance for below the knee amputation 2. Patient will need medical clearance to proceed with left lower extremity below the knee amputation 3. Continue current medical management 4. Plan to proceed with left lower extremity [id number] amputation, however at this time patient would like to have this done now as an outpatient with Dr. Loyola. There is no urgency to the [id number] amputation at this time as it is dry gangrene. Patient may be discharged once otherwise medically stable. Will follow up outpatient with Dr. Loyola for scheduling of left BKA. The impression and plan of care has been dictated as directed. Dr Mendoza I performed a history and examination of this patient, discussed the same with the dictator. I agree with the dictator's note ,documented as a scribe. Any additional findings or plans will be noted.
[2021-07-23 11:32] LABS: Glucose,Whole Blood 120 mg/dL (75-99)
--- NOTE | 2021-07-23 13:28 | P.PN ---
Subjective Principal diagnosis: Foot gangrene The patient is here essentially with history of atrial fibrillation with renal failure and element of peripheral vascular disease related to diabetes. The patient unfortunately has had amputation past is now scheduled for knee amputation. Objective - Vital Signs Vital signs: Vital Signs Temp 98.4 F 07/23/21 08:00 Pulse 55 L 07/23/21 08:00 Resp 14 07/23/21 08:00 BP 124/62 07/23/21 08:00 Pulse Ox 99 07/23/21 08:00 Intake & Output 07/22/21 07/23/21 07/23/21 18:59 06:59 18:59 Output Total 950 Balance -950 Output: Urine 950 Other: Voiding Method External Catheter - Constitutional General appearance: Present: cooperative. Absent: disheveled - Neck Neck: Present: normal ROM - Respiratory Respiratory: bilateral: CTA - Cardiovascular Rhythm: irregularly irregular Heart sounds: normal: S1, S2 Abnormal Heart Sounds: Absent: S3 Gallop - Gastrointestinal General gastrointestinal: Present: soft. Absent: tenderness - Integumentary Integumentary Comment(s): Gangrene toes of the foot with PAD Integumentary: Present: cellulitis - Psychiatric Psychiatric: Present: A&O x's 3 - Labs CBC & Chem 7: 07/23/21 09:37 Labs: Abnormal Lab Results - Last 24 Hours (Table) 07/22/21 07/23/21 07/23/21 Range/Units 20:25 06:45 09:37 Sodium 135 L (137-145) mmol/L Potassium 5.4 H (3.5-5.1) mmol/L Carbon Dioxide 21 L (22-30) mmol/L BUN 61 H (7-17) mg/dL Creatinine 2.03 H (0.52-1.04) mg/dL Glucose 120 H (74-99) mg/dL POC Glucose (mg/dL) 154 H 130 H (75-99) mg/dL C-Reactive Protein 4.9 H (<1.0) mg/dL 07/23/21 Range/Units 11:30 Sodium (137-145) mmol/L Potassium (3.5-5.1) mmol/L Carbon Dioxide (22-30) mmol/L BUN (7-17) mg/dL Creatinine (0.52-1.04) mg/dL Glucose (74-99) mg/dL POC Glucose (mg/dL) 120 H (75-99) mg/dL C-Reactive Protein (<1.0) mg/dL Assessment and Plan (1) Cellulitis of foot Current Visit: Yes Status: Acute Code(s): L03.119 - CELLULITIS OF UNSPECIFIED PART OF LIMB SNOMED Code(s): 166628358 (2) Amputated toe of left foot Current Visit: No Status: Acute Code(s): S98.132A - COMPLETE TRAUMATIC AMPUTATION OF ONE LEFT LESSER TOE, INIT SNOMED Code(s): 504469131 (3) Atrial fibrillation Current Visit: No Status: Acute Code(s): I48.91 - UNSPECIFIED ATRIAL FIBRILLATION SNOMED Code(s): 27185657 (4) Congestive heart failure Current Visit: No Status: Acute Code(s): I50.9 - HEART FAILURE, UNSPECIFIED SNOMED Code(s): 95519181 (5) Insulin dependent type 2 diabetes mellitus Current Visit: No Status: Acute Code(s): E11.9 - TYPE 2 DIABETES MELLITUS WITHOUT COMPLICATIONS; Z79.4 - CORRECTIONAL NURSE (CURRENT) USE OF INSULIN SNOMED Code(s): 965729987 (6) Weakness Current Visit: No Status: Acute Code(s): R53.1 - WEAKNESS SNOMED Code(s): 11732665 Plan: Reconcile medications per [facility] antibiotic treatment. Prognosis is guarded secondary to her foot nonhealing. Consult infectious disease with vascular surgery. I suspect patient will need some form of amputation. See orders otherwise Check CBC and CMP in a.m.
[2021-07-23] MEDS: CEFEPIME 1 GM in SODIUM CHLORIDE 0.9% 50 ML IVPB SCH ×2 (13:48→19:46)
[2021-07-23 14:19] LABS: HGB 8.5 g/dL (12.0-15.0); MCH 28.6 pg (27.0-32.0); MCHC 29.3 g/dL (32.0-37.0); MCV 97.6 fL (80.0-97.0); Mean Platelet Volume 12.7 fL (9.5-12.2); NRBC Per 100 WBC 0 /100 WBCS (0.0-0.0); Platelet Count 191 X 10*3/uL (140-440); RBC 2.97 X 10*6/uL (4.10-5.20); RDW 17.2 % (11.5-14.5); WBC 12.12 X 10*3/uL (4.50-10.00)
[2021-07-23 15:29] LABS: Basophils # (M) 0.12 X 10*3/uL (0.00-0.10); Eosinophils # (M) 0.36 X 10*3/uL (0.04-0.35); Lymphocytes # (M) 1.45 X 10*3/uL (0.90-5.00); Monocytes # (M) 0.85 X 10*3/uL (0.20-1.00); Myelocytes % 3 % (0-0); Neutrophils # (M) 8.97 X 10*3/uL (2.00-8.90); Neutrophils % (M) 74 %
[2021-07-23 15:44] LABS: Erythrocyte Sedimentation Rate 22 mm/Hr (0-30)
[2021-07-23 16:25] LABS: Glucose,Whole Blood 149 mg/dL (75-99)
[2021-07-23 20:10] LABS: Glucose,Whole Blood 161 mg/dL (75-99)
[2021-07-23] MEDS: INSULIN DETEMIR (LEVEMIR) 100 UNIT/ML SYR SQ SCH (20:10)
--- NOTE | 2021-07-23 23:10 | P.PN ---
Subjective Progress Note Date: 07/23/21 Principal diagnosis: Left foot wound and cellulitis Patient is a 76 year old female with multiple comorbidities in this patient who is status post left fourth toe amputation for gangrene subsequent nonhealing wound the patient did have a significant PAD to the left leg, admitted from the wound care center concerning for a nonhealing wound and cellulitis. On today's evaluation that is 07/23/2021, the patient remains to be afebrile, the patient pain to the left foot has slightly decreased in intensity, and the patient denies having any chest pain or shortness of breath or cough no abdominal pain and no diarrhea Objective - Vital Signs Vital signs: Vital Signs Temp 98.4 F 07/23/21 08:00 Pulse 55 L 07/23/21 08:00 Resp 14 07/23/21 08:00 BP 124/62 07/23/21 08:00 Pulse Ox 99 07/23/21 08:00 Intake & Output 07/22/21 07/23/21 07/23/21 18:59 06:59 18:59 Output Total 950 Balance -950 Output: Urine 950 Other: Voiding Method External Catheter - Exam GENERAL DESCRIPTION: An elderly female lying in bed in no distress RESPIRATORY SYSTEM: Unlabored breathing , decreased breath sounds at bases HEART: S1 S2 regular rate and rhythm , ABDOMEN: Soft , no tenderness EXTREMITIES: Left fourth toe amputation site wound dull with some necrotic area, redness to the leg is slightly decreased - Labs CBC & Chem 7: 07/23/21 09:37 07/23/21 09:37 Labs: Abnormal Lab Results - Last 24 Hours (Table) 07/22/21 07/23/21 07/23/21 Range/Units 20:25 06:45 09:37 Sodium 135 L (137-145) mmol/L Potassium 5.4 H (3.5-5.1) mmol/L Carbon Dioxide 21 L (22-30) mmol/L BUN 61 H (7-17) mg/dL Creatinine 2.03 H (0.52-1.04) mg/dL Glucose 120 H (74-99) mg/dL POC Glucose (mg/dL) 154 H 130 H (75-99) mg/dL C-Reactive Protein 4.9 H (<1.0) mg/dL 07/23/21 Range/Units 11:30 Sodium (137-145) mmol/L Potassium (3.5-5.1) mmol/L Carbon Dioxide (22-30) mmol/L BUN (7-17) mg/dL Creatinine (0.52-1.04) mg/dL Glucose (74-99) mg/dL POC Glucose (mg/dL) 120 H (75-99) mg/dL C-Reactive Protein (<1.0) mg/dL Assessment and Plan (1) Cellulitis of foot Current Visit: Yes Status: Acute Code(s): L03.119 - CELLULITIS OF UNSPECIFIED PART OF LIMB SNOMED Code(s): 481340565 Plan: 1patient presented to hospital with worsening pain to the left foot and this patient did have a nonhealing wound to the left fourth toe amputation site and now have evidence of some gangrenous changes to the left big toe with associated swelling redness to the left leg believed to cover for both gram-positive skin terra as well as gram-negative to be the etiology of this cellulitis and concern for possible deep infection/osteomyelitis at the site of 4th toe amputation site. 2patient with multiple antibiotic allergies that would limit the number of antibiotics safe to use. 3renal insufficiency and high risk of nephrotoxicity from vancomycin. 4 patient has shown some clinical improvement and will continue with cefepime 2 g every 12hr and daptomycin. Time with Patient: Less than 30
[2021-07-24 06:56] LABS: Glucose,Whole Blood 129 mg/dL (75-99)
[2021-07-24] MEDS: INSULIN ASPART (NovoLOG) 100 UNIT/ML VIAL SQ SCH ×2 (07:23→11:53)
[2021-07-24 07:26] VITALS: TEMP 98
--- NOTE | 2021-07-24 08:23 | P.PN ---
Subjective Principal diagnosis: Foot gangrene The patient is here essentially with history of atrial fibrillation with renal failure and element of peripheral vascular disease related to diabetes. The patient unfortunately has had amputation past is now to be scheduled for below knee". Tolerating antibiotics. She seems to be in minimal pain this morning for Objective - Vital Signs Vital signs: Vital Signs Temp 98.0 F 07/24/21 07:24 Pulse 58 L 07/24/21 07:24 Resp 17 07/24/21 07:24 BP 113/64 07/24/21 07:24 Pulse Ox 98 07/24/21 07:24 Intake & Output 07/23/21 07/24/21 07/24/21 18:59 06:59 18:59 Output Total 800 Balance -800 Output: Urine 800 Other: Voiding Method External Catheter # Voids 1 # Bowel Movements 0 - Constitutional General appearance: Present: average body habitus - EENT Eyes: Absent: abnormal pupil, anicteric sclerae - Neck Neck: Absent: lymphadenopathy - Respiratory Respiratory: bilateral: CTA - Cardiovascular Rhythm: regular Heart sounds: normal: S1, S2 Abnormal Heart Sounds: Absent: S3 Gallop, S4 Gallop - Gastrointestinal General gastrointestinal: Present: soft. Absent: tenderness - Neurologic Neurologic: Present: CNII-XII intact - Labs CBC & Chem 7: 07/23/21 09:37 07/23/21 09:37 Labs: Abnormal Lab Results - Last 24 Hours (Table) 07/23/21 07/23/21 07/23/21 Range/Units 09:37 09:37 11:30 WBC 12.12 H (4.50-10.00) X 10*3/uL RBC 2.97 L (4.10-5.20) X 10*6/uL Hgb 8.5 L (12.0-15.0) g/dL Hct 29.0 L (37.2-46.3) % MCV 97.6 H (80.0-97.0) fL MCHC 29.3 L (32.0-37.0) g/dL RDW 17.2 H (11.5-14.5) % MPV 12.7 H (9.5-12.2) fL Myelocytes % 3 H (0-0) % Neutrophils # (Manual) 8.97 H (2.00-8.90) X 10*3/uL Eosinophils # (Manual) 0.36 H (0.04-0.35) X 10*3/uL Basophils # (Manual) 0.12 H (0.00-0.10) X 10*3/uL Sodium 135 L (137-145) mmol/L Potassium 5.4 H (3.5-5.1) mmol/L Carbon Dioxide 21 L (22-30) mmol/L BUN 61 H (7-17) mg/dL Creatinine 2.03 H (0.52-1.04) mg/dL Glucose 120 H (74-99) mg/dL POC Glucose (mg/dL) 120 H (75-99) mg/dL C-Reactive Protein 4.9 H (<1.0) mg/dL 07/23/21 07/23/21 07/24/21 Range/Units 16:24 20:08 06:55 WBC (4.50-10.00) X 10*3/uL RBC (4.10-5.20) X 10*6/uL Hgb (12.0-15.0) g/dL Hct (37.2-46.3) % MCV (80.0-97.0) fL MCHC (32.0-37.0) g/dL RDW (11.5-14.5) % MPV (9.5-12.2) fL Myelocytes % (0-0) % Neutrophils # (Manual) (2.00-8.90) X 10*3/uL Eosinophils # (Manual) (0.04-0.35) X 10*3/uL Basophils # (Manual) (0.00-0.10) X 10*3/uL Sodium (137-145) mmol/L Potassium (3.5-5.1) mmol/L Carbon Dioxide (22-30) mmol/L BUN (7-17) mg/dL Creatinine (0.52-1.04) mg/dL Glucose (74-99) mg/dL POC Glucose (mg/dL) 149 H 161 H 129 H (75-99) mg/dL C-Reactive Protein (<1.0) mg/dL Assessment and Plan (1) Cellulitis of foot Current Visit: Yes Status: Acute Code(s): L03.119 - CELLULITIS OF UNSPECIFIED PART OF LIMB SNOMED Code(s): 560243643 (2) Amputated toe of left foot Current Visit: No Status: Acute Code(s): S98.132A - COMPLETE TRAUMATIC AMPUTATION OF ONE LEFT LESSER TOE, INIT SNOMED Code(s): 298060201 (3) Atrial fibrillation Current Visit: No Status: Acute Code(s): I48.91 - UNSPECIFIED ATRIAL FIBRILLATION SNOMED Code(s): 33151366 (4) Congestive heart failure Current Visit: No Status: Acute Code(s): I50.9 - HEART FAILURE, UNSPECIFIED SNOMED Code(s): 25419794 (5) Insulin dependent type 2 diabetes mellitus Current Visit: No Status: Acute Code(s): E11.9 - TYPE 2 DIABETES MELLITUS WITHOUT COMPLICATIONS; Z79.4 - COMPLIANCE REVIEW OFFICER (CURRENT) USE OF INSULIN SNOMED Code(s): 205027424 (6) Weakness Current Visit: No Status: Acute Code(s): R53.1 - WEAKNESS SNOMED Code(s): 58389532 Plan: Multiple consultants input appreciated. Continue antibiotic treatment which I think she seems to be improving. Vascular surgery for below-knee amputation. Check CBC and CMP in a.m. History of H fibrillation with renal disease from diabetes.
[2021-07-24] MEDS: metOLazone 2.5 MG TAB PO SCH (09:03)
[2021-07-24] MEDS: FUROSEMIDE 40 MG TAB PO SCH (09:03)
[2021-07-24] MEDS: PANTOPRAZOLE 40 MG TABLET PO SCH (09:03)
[2021-07-24] MEDS: MIDODRINE 5 MG TAB PO SCH ×2 (09:03→12:11)
[2021-07-24] MEDS: METOPROLOL TARTRATE 12.5 MG TAB PO SCH (09:03)
[2021-07-24] MEDS: CEFEPIME 1 GM in SODIUM CHLORIDE 0.9% 50 ML IVPB SCH (09:04)
[2021-07-24 09:15] LABS: HCT 28.7 % (37.2-46.3); HGB 8.3 g/dL (12.0-15.0); MCHC 28.9 g/dL (32.0-37.0); Mean Platelet Volume 12.4 fL (9.5-12.2); NRBC Per 100 WBC 0 /100 WBCS (0.0-0.0); Platelet Count 175 X 10*3/uL (140-440); RBC 2.96 X 10*6/uL (4.10-5.20); RDW 17.2 % (11.5-14.5); WBC 8.24 X 10*3/uL (4.50-10.00)
[2021-07-24 09:39] LABS: Albumin 2.9 g/dL (3.8-4.9); Albumin/Globulin Ratio 1.12 (1.60-3.17); Anion Gap 10.9 mmol/L (10.00-18.00); BUN/Creat Ratio 26.65 Ratio (12.00-20.00); Blood Urea Nitrogen 53.3 mg/dL (9.0-27.0); Calcium 8.5 mg/dL (8.7-10.3); Carbon Dioxide 23.1 mmol/L (20.0-27.5); Globulin 2.6 g/dL (1.6-3.3); Non-African American GFR(CKD) 23.3 (60.0-200.0); Potassium 5.2 mmol/L (3.5-5.5); Total Bilirubin 0.6 mg/dL (0.30-1.20); Total Protein 5.5 g/dL (6.2-8.2)
[2021-07-24] MEDS: Acetaminophen-Codeine 300-30mg TAB PO PRN (10:28)
--- NOTE | 2021-07-24 11:36 | P.PN ---
Subjective Progress Note Date: 07/24/21 Principal diagnosis: Left foot pain, peripheral arterial disease Patient is seen and examined at the follow-up. No acute changes through the night. Had a midline placed. Plan is for possible discharge to [address] [place] [address] Loyola to do her [id number] amputation. This is not urgent and will be scheduled in the next 1-2 weeks. Objective - Vital Signs Vital signs: Vital Signs Temp 98.0 F 07/24/21 07:24 Pulse 56 L 07/24/21 07:45 Resp 17 07/24/21 07:45 BP 113/64 07/24/21 07:24 Pulse Ox 98 07/24/21 07:24 Intake & Output 07/23/21 07/24/21 07/24/21 18:59 06:59 18:59 Output Total 800 Balance -800 Output: Urine 800 Other: Voiding Method External Catheter External Catheter # Voids 1 # Bowel Movements 0 - Exam General appearance: The patient is alert, oriented, appears in no acute dist ress. HET: Head is normocephalic and atraumatic. Pupils are equal and reactive. Neck: Supple without lymphadenopathy. Trachea midline. Heart: S1 S2. Regular rate and rhythm. Lungs: Clear to auscultation bilaterally. Abdomen: Soft, nontender, nondistended. Extremities: Dry gangrene to bilateral tips of great toes. Left foot fourth toe amputation site which are gangrene, nonhealing. 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 Nonpalpable dorsalis pedis and posterior tibialis pulse. Neurological: No focal deficits. - Labs CBC & Chem 7: 07/24/21 04:12 07/24/21 04:12 Labs: Abnormal Lab Results - Last 24 Hours (Table) 07/23/21 07/23/21 07/23/21 Range/Units 09:37 09:37 11:30 WBC 12.12 H (4.50-10.00) X 10*3/uL RBC 2.97 L (4.10-5.20) X 10*6/uL Hgb 8.5 L (12.0-15.0) g/dL Hct 29.0 L (37.2-46.3) % MCV 97.6 H (80.0-97.0) fL MCHC 29.3 L (32.0-37.0) g/dL RDW 17.2 H (11.5-14.5) % MPV 12.7 H (9.5-12.2) fL Myelocytes % 3 H (0-0) % Neutrophils # (Manual) 8.97 H (2.00-8.90) X 10*3/uL Eosinophils # (Manual) 0.36 H (0.04-0.35) X 10*3/uL Basophils # (Manual) 0.12 H (0.00-0.10) X 10*3/uL Sodium 135 L (137-145) mmol/L Potassium 5.4 H (3.5-5.1) mmol/L Carbon Dioxide 21 L (22-30) mmol/L BUN 61 H (7-17) mg/dL Creatinine 2.03 H (0.52-1.04) mg/dL Glucose 120 H (74-99) mg/dL POC Glucose (mg/dL) 120 H (75-99) mg/dL C-Reactive Protein 4.9 H (<1.0) mg/dL 07/23/21 07/23/21 07/24/21 Range/Units 16:24 20:08 06:55 WBC (4.50-10.00) X 10*3/uL RBC (4.10-5.20) X 10*6/uL Hgb (12.0-15.0) g/dL Hct (37.2-46.3) % MCV (80.0-97.0) fL MCHC (32.0-37.0) g/dL RDW (11.5-14.5) % MPV (9.5-12.2) fL Myelocytes % (0-0) % Neutrophils # (Manual) (2.00-8.90) X 10*3/uL Eosinophils # (Manual) (0.04-0.35) X 10*3/uL Basophils # (Manual) (0.00-0.10) X 10*3/uL Sodium (137-145) mmol/L Potassium (3.5-5.1) mmol/L Carbon Dioxide (22-30) mmol/L BUN (7-17) mg/dL Creatinine (0.52-1.04) mg/dL Glucose (74-99) mg/dL POC Glucose (mg/dL) 149 H 161 H 129 H (75-99) mg/dL C-Reactive Protein (<1.0) mg/dL Assessment and Plan Assessment: 1. Nonhealing left lower extremity wound, peripheral arterial disease, infrapopliteal disease 2. Proximal atrial fibrillation, not on anticoagulation secondary to GI bleed 3. Coronary artery disease with previous stenting 4. History of GI bleed 5. Hypertension 6. Hyperlipidemia 7. Chronic heart failure Plan: 1. Consult to cardiology for cardiac clearance for below the knee amputation completed, patient is cleared for left [id number] amputation 2. Patient will need medical clearance to proceed with left lower extremity below the knee amputation 3. Continue current medical management 4. Plan to proceed with left lower extremity [id number] amputation, however at this time patient would like to have this done now as an outpatient with Dr. Loyola. There is no urgency to the [id number]-ufv-[id number] amputation at this time as it is dry gangrene. Patient may be discharged once otherwise medically stable. Will follow up outpatient with Dr. Loyola for scheduling of left BKA. Thank you for this consultation, the patient is cleared from vascular surgery for discharge. The impression and plan of care has been dictated as directed. Dr Mendoza I performed a history and examination of this patient, discussed the same with the dictator. I agree with the dictator's note ,documented as a scribe. Any additional findings or plans will be noted.
[2021-07-24 11:42] LABS: Glucose,Whole Blood 100 mg/dL (75-99)
--- NOTE | 2021-07-24 12:38 | P.DS ---
Providers Date of admission: 07/21/21 13:24 Attending physician: Last Barrios Consults: 07/21/21 13:34 Consult Physician Routine Consulting Provider: Keenan Mendoza Consult Reason/Comments: Bilateral lower extremity ulcers cellulitis Do you want consulting provider notified?: Yes Consult Physician Routine Consulting Provider: Mira Oswald Consult Reason/Comments: Bilateral lower extremity cellulitis and diabetic foot ulcers Do you want consulting provider notified?: Yes Primary care physician: Last Barrios - Discharge Diagnosis(es) (1) Cellulitis of foot Current Visit: Yes Status: Acute (2) Amputated toe of left foot Current Visit: No Status: Acute (3) Atrial fibrillation Current Visit: No Status: Acute (4) Congestive heart failure Current Visit: No Status: Acute (5) Insulin dependent type 2 diabetes mellitus Current Visit: No Status: Acute (6) Weakness Current Visit: No Status: Acute Hospital Course: This is discharged on a 76-year-old white female with history of atrial fibrillation acute on chronic renal disease with diabetic foot with element of PAD. The patient was placed on appropriate antibiotic treatment and due to the end-stage vascular disease that she has she has opted to have a left below the knee amputation. She was placed on appropriate antibiotic treatment and transferred to [facility] and return for her amputation. Consultants are noted p mata is guarded unless she has his treatment. She was discharged in stable condition to follow-up with me once the amputation scheduled Patient Condition at Discharge: Fair Plan - Discharge Summary New Discharge Prescriptions: New Doxycycline Hyclate 100 mg PO Q12H 10 Days #20 tab Cephalexin [Keflex] 500 mg PO Q8HR 10 Days #30 cap Continue Furosemide [Lasix] 40 mg PO DAILY #0 tablet Pantoprazole [Protonix] 40 mg PO AC-BRKFST #0 tab Doxycycline Monohydrate 100 mg PO Q12H Insulin Lispro [humaLOG Kwikpen] 4 unit SQ ACHS metOLazone [Zaroxolyn] 2.5 mg PO DAILY Metoprolol Tartrate 12.5 mg PO BID Midodrine HCl [ProAmatine] 10 mg PO TID traMADol HCL 50 mg PO Q6H PRN PRN Reason: Pain Insulin Detemir (Levemir) [Levemir] 12 unit SQ HS ml Econazole Nitrate [Econazole Nitrate 1%] 1 applic TOPICAL HS Spironolactone 25 mg PO DAILY Discharge Medication List Furosemide [Lasix] 40 mg PO DAILY #0 tablet 06/24/21 [Rx] Insulin Detemir (Levemir) [Levemir] 12 unit SQ HS ml 07/02/21 [Rx] Pantoprazole [Protonix] 40 mg PO AC-BRKFST #0 tab 07/02/21 [Rx] Doxycycline Monohydrate 100 mg PO Q12H 07/21/21 [History] Econazole Nitrate [Econazole Nitrate 1%] 1 applic TOPICAL HS 07/21/21 [History] Insulin Lispro [humaLOG Kwikpen] 4 unit SQ ACHS 07/21/21 [History] Metoprolol Tartrate 12.5 mg PO BID 07/21/21 [History] Midodrine HCl [ProAmatine] 10 mg PO TID 07/21/21 [History] Spironolactone 25 mg PO DAILY 07/21/21 [History] metOLazone [Zaroxolyn] 2.5 mg PO DAILY 07/21/21 [History] traMADol HCL 50 mg PO Q6H PRN 07/21/21 [History] Cephalexin [Keflex] 500 mg PO Q8HR 10 Days #30 cap 07/24/21 [Rx] Doxycycline Hyclate 100 mg PO Q12H 10 Days #20 tab 07/24/21 [Rx] Follow up Appointment(s)/Referral(s): Last Barrios MD [Primary Care Provider] [facility] - As Needed Discharge Disposition: TRANSFER TO SNF/ECF
--- NOTE | 2021-07-24 12:45 | CDI ---
Documentation Clarification Form Date: 07/24/2021 11:50:58 AM From: Carla Peñaloza RN, CCDS Admit Date: 07/21/2021 01:24:00 PM Patient Name: Vicky Nixon V Visit Number: [id number] Discharge Date: ATTENTION: The Clinical Documentation Specialists (CDI) and [facility] Coding Staff appreciate your assistance in clarifying documentation. Please respond to the clarification below the line at the bottom and electronically sign. The CDI & [facility] Coding staff will review the response and follow-up if needed. Please note: Queries are made part of the Legal Health Record. If you have any questions, please contact the author of this message via ITS. Dr. Last Barrios Unspecified renal disease and CKD is documented in the past medical history, H/P and subsequent progress notes. Additional clarification regarding the stage of CKD is requested. History/Risk Factors: Atrial fibrillation, CAD, Heart failure, Diabetes Mellitus, Hypertension, peripheral arterial disease, renal disease, CKD Patients Historical: 03/14/21 (Dr. 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 Clinical Indicators: 76-year-old female who present with left foot wound and pain cellulitis of foot. She has honhealing wound to the left forth toe amputation site and now have evidence of some gangrenous changes to the left big toe with swelling. Review of labs listed below and history indicate renal disease. 07/23 BUN 61, CR 2.03, GFR 23 07/24 BUN 53, CR 2.0 GFR 23.3 Treatment: Monitor renal function per orders) Please clarify the stage of the CKD, if known: [ ] CKD Stage 1 (GFR > 90) [ ] CKD Stage 2 (GFR 60-89) [ ] CKD Stage 3 (GFR 30-59) [ ] CKD Stage 3a (GFR 45-59) [ ] CKD Stage 3b (GFR 30-44) [x ] CKD Stage 4 (GFR 15-29) [ ] Other, please specify [ ] Unable to determine (Template Last revised: April 2020) MTDD
[2021-07-24 14:19] VITALS: BP 111/56; PULSE 59; RESP 18
[2021-07-25] MEDS ORDERED: DAPTOmycin 350 MG in SODIUM CHLORIDE 0.9% 50 ML IVPB SCH (09:00)
== END 2021-07-24 15:13 | DRG 300 ==
LOC: EC 12:45 → 4SSUR 13:24
PROVIDERS: ADMIT Family Medicine; ATTEND Family Medicine
DX: E11.52 Type 2 diabetes mellitus with diabetic peripheral angiopathy with gangrene (principal); I13.0 Hypertensive heart and chronic kidney disease with heart failure and stage 1 through stage 4 chronic kidney disease, or unspecified chronic kidney disease; I96 Gangrene, not elsewhere classified; I50.32 Chronic diastolic (congestive) heart failure; I70.262 Atherosclerosis of native arteries of extremities with gangrene, left leg; L03.115 Cellulitis of right lower limb; L03.116 Cellulitis of left lower limb; L97.919 Non-pressure chronic ulcer of unspecified part of right lower leg with unspecified severity; L97.929 Non-pressure chronic ulcer of unspecified part of left lower leg with unspecified severity; N18.4 Chronic kidney disease, stage 4 (severe); I48.0 Paroxysmal atrial fibrillation; I25.10 Atherosclerotic heart disease of native coronary artery without angina pectoris; E11.22 Type 2 diabetes mellitus with diabetic chronic kidney disease; E11.40 Type 2 diabetes mellitus with diabetic neuropathy, unspecified; E11.621 Type 2 diabetes mellitus with foot ulcer; I27.20 Pulmonary hypertension, unspecified; R29.6 Repeated falls; I08.1 Rheumatic disorders of both mitral and tricuspid valves; M19.90 Unspecified osteoarthritis, unspecified site; D69.6 Thrombocytopenia, unspecified; E78.5 Hyperlipidemia, unspecified; I25.2 Old myocardial infarction; Z79.4 Long term (current) use of insulin; Z79.899 Other long term (current) drug therapy; Z80.1 Family history of malignant neoplasm of trachea, bronchus and lung; Z82.5 Family history of asthma and other chronic lower respiratory diseases; Z83.3 Family history of diabetes mellitus; Z86.74 Personal history of sudden cardiac arrest; Z87.891 Personal history of nicotine dependence; Z89.512 Acquired absence of left leg below knee; Z95.5 Presence of coronary angioplasty implant and graft; Z96.1 Presence of intraocular lens; Z88.8 Allergy status to other drugs, medicaments and biological substances; Z88.1 Allergy status to other antibiotic agents; Z91.81 History of falling; Z87.440 Personal history of urinary (tract) infections; Z91.040 Latex allergy status; Z88.0 Allergy status to penicillin; Z91.018 Allergy to other foods; Z98.42 Cataract extraction status, left eye; Z98.41 Cataract extraction status, right eye
CPT/HCPCS: 36410; 36415; 76937; 80048; 80053; 82009; 85025; 85027; 85652; 86140; 87040; 87070; 87205; 99285

== ENCOUNTER 2021-08-06 05:50 | Inpatient (IN) | payer MEDICARE, OTHER ==
[2021-08-06 07:04] LABS: Glucose,Whole Blood 136 mg/dL (75-99)
[2021-08-06] MEDS ORDERED: SODIUM CHLORIDE 0.9% 1,000 ML IV ONE (07:16)
[2021-08-06] MEDS ORDERED: ONDANSETRON 4 MG/2 ML VIAL ONE (07:20)
[2021-08-06] MEDS ORDERED: DEXAMETHASONE SOD PHOSPHATE 4 MG/ML 1 ML VIAL IVP ONE (07:21)
[2021-08-06] MEDS ORDERED: ONDANSETRON 4 MG/2 ML VIAL IVP ONE ×2 (07:21→16:01)
[2021-08-06 07:39] LABS: INR 1.3 (<1.2); Partial Thromboplastin Time 24.6 sec (22.0-30.0); Prothrombin Time 13.3 sec (9.0-12.0)
[2021-08-06] MEDS ORDERED: MIDAZOLAM 2 MG/2 ML VIAL ONE (07:39)
[2021-08-06] MEDS ORDERED: GLYCOPYRROLATE 0.2 MG/ML 2 ML VIAL ONE (07:39)
[2021-08-06] MEDS ORDERED: LIDOCAINE 2% INJ 20 MG/ML (2 ML VIAL) ONE (07:39)
[2021-08-06] MEDS ORDERED: SUCCINYLCHOLINE CHLORIDE 100 MG/5 ML SYR IV ONE (07:39)
[2021-08-06] MEDS ORDERED: ROCURONIUM 10 MG/ML (5 ML VIAL) IV ONE (07:39)
[2021-08-06] MEDS ORDERED: PROPOFOL 10 MG/ML 20 ML VIAL IV ONE (07:39)
[2021-08-06] MEDS ORDERED: fentaNYL (PF) 50 MCG/ML 2 ML AMP ONE (07:39)
[2021-08-06] MEDS ORDERED: NEOSTIGMINE 1 MG/ML 10 ML VIAL ONE (07:39)
[2021-08-06] MEDS ORDERED: SODIUM CHLORIDE 0.9% 500 ML 500 ML with ceFAZolin 2,000 MG IRRIGATION ONE ×2 (08:19)
--- NOTE | 2021-08-06 09:18 | P.OP ---
Date of Procedure: 08/06/21 Description of Procedure: PREOPERATIVE DIAGNOSIS: Left forefoot gangrene, previous fourth toe amputation, nonhealing wound, peripheral arterial disease, foot pain. POSTOPERATIVE DIAGNOSIS: Same. OPERATION: Left below knee amputation. SURGEON: Vianca Loyola DO COMMUNITY THEATER ACTOR: None. ANESTHESIA: General endotracheal ESTIMATED BLOOD LOSS: 75 mL SPECIMENS REMOVED: Left lower extremity COMPLICATIONS: None immediately apparent CONDITION: Stable to recovery FINDINGS AND INDICATIONS: The patient is a 76-year-old female with past medical history of peripheral arterial disease and gangrene of her left fourth toe requiring amputation. She underwent interventions for revascularization and has significant infrapopliteal disease. This time she has enough continued pain that she does not wish to undergo any further wound healing or subsequent therapies and given her severe peripheral arterial disease with discussed the next option would be a below-knee amputation as appears she had patency of her popliteal artery on imaging. Risks and benefits of going for the procedure were discussed. She seemingly understood and was willing to proceed. Discussion was had regarding the plan of going forward with a regional anesthetic and spinal with monitored anesthesia care however given the patient's slightly elevated INR at 1.3 a were not comfortable with this and decided to place the patient under general anesthesia PROCEDURE IN DETAIL: The patient was brought to the operating room, the operative leg was prepped and draped in the usual sterile manner. 10 cm below the tibial plateau was marked. The calf circumference was measured. Two thirds was utilized for the anterior incision, one third was utilized to create the flap. The incision was marked. The incision was deepened through the subcutaneous tissue and fascia to the level of the bone. The fascia was transected around the level of the incision. Anterior compartment muscles were divided and visualized to the tibial vessels which were suture ligated with 2-0 silk. Then the lateral compartment muscles were divided. Dissection was carried down to the level of the bone. The periosteal elevator was used and the tibia was freed from its periosteal tissues. The tibia was divided with an oscillating saw. The same was done of the fibula, approximately 1-1/2-2 cm more proximal to the tibia itself. The posterior flap was created with an amputation knife. Bleeding was controlled with suture ligation of the vessels. Janey ctrocautery was also used for hemostasis. The specimen was removed. The wound was copiously irrigated. The tibia and fibula were smoothed with a rasp. 2-0 and 3-0 Vicryl was utilized to approximate the fascia. The skin was reapproximated with kathleen. The incsion was cleansed and a dressing was placed. The patient was extubated and transferred to PACU in stable condition having tolerated the procedure well
[2021-08-06] MEDS ORDERED: ONDANSETRON 4 MG/2 ML VIAL IVP PRN (09:19)
[2021-08-06] MEDS: fentaNYL (PF) 50 MCG/ML 2 ML AMP IVP ONE ×2 (09:38→09:46)
[2021-08-06] MEDS: HYDROmorphone 0.5 MG/0.5 ML SYRINGE IVP ONE ×2 (10:15→10:36)
[2021-08-06] MEDS ORDERED: ACETAMINOPHEN CODEINE PO PRN (13:25)
[2021-08-06] MEDS ORDERED: NON FORMULARY DRUG (Tramadol Hcl 50 MG Tablet) PO PRN (13:25)
[2021-08-06] MEDS ORDERED: ONDANSETRON 4 MG TAB PO PRN (13:25)
[2021-08-06] MEDS ORDERED: MIDAZOLAM 2 MG/2 ML VIAL IV PRN (16:01)
[2021-08-06] MEDS ORDERED: HYDROmorphone 0.5 MG/0.5 ML SYRINGE IVP PRN (16:01)
[2021-08-06] MEDS ORDERED: LIDOCAINE 1% (10MG/ML) FOR IV START INTRADERMA PRN (16:01)
[2021-08-06 16:44] LABS: Glucose,Whole Blood 247 mg/dL (75-99)
[2021-08-06] MEDS: INSULIN ASPART (NovoLOG) 100 UNIT/ML VIAL SQ SCH ×5 (17:03→21:22)
[2021-08-06] MEDS: MIDODRINE 5 MG TAB PO SCH (17:44)
[2021-08-06] MEDS: LACTATED RINGERS 1,000 ML IV SCH (17:44)
[2021-08-06] MEDS: MORPHINE SULFATE 2 MG/ML SYRINGE IVP PRN ×2 (18:58→22:08)
[2021-08-06 19:20] LABS: Glucose,Whole Blood 277 mg/dL (75-99)
[2021-08-06] MEDS: CLOTRIMAZOLE 1% CREAM 30 GM TUBE TOPICAL SCH (20:56)
[2021-08-06] MEDS: METOPROLOL TARTRATE 12.5 MG TAB PO SCH (21:20)
[2021-08-06] MEDS: INSULIN DETEMIR (LEVEMIR) 100 UNIT/ML SYR SQ SCH (21:21)
[2021-08-07 02:05] LABS: Glucose,Whole Blood 232 mg/dL (75-99)
[2021-08-07] MEDS: MORPHINE SULFATE 2 MG/ML SYRINGE IVP PRN ×3 (03:21→09:51)
[2021-08-07 05:30] LABS: Glucose,Whole Blood 201 mg/dL (75-99)
[2021-08-07] MEDS: INSULIN ASPART (NovoLOG) 100 UNIT/ML VIAL SQ SCH ×9 (06:31→22:21)
[2021-08-07] MEDS: MIDODRINE 5 MG TAB PO SCH ×3 (06:31→18:20)
[2021-08-07] MEDS: PANTOPRAZOLE 40 MG TABLET PO SCH (06:33)
--- NOTE | 2021-08-07 07:53 | P.CONS ---
History of Present Illness - Reason for Consult Consult date: 08/07/21 Medical management - Chief Complaint Status post left [id number] amputation. - History of Present Illness This is a history of physical 76-year-old white female with history of diabetic nephropathy with neuropathy and atrial fibrillation with history of GI bleed in the remote past who is here essentially for PAD. She is postop day #1 bloating" and I'm consulted for medical management. The patient states pain control. His appropriate. No voiding symptoms of diarrhea constipation or dysuria she is tolerating diet. Review of Systems Constitutional: Denies chills, Denies fever Eyes: denies blurred vision, denies pain Ears, nose, mouth and throat: Denies headache, Denies sore throat Cardiovascular: Denies chest pain, Denies shortness of breath Respiratory: Denies cough Gastrointestinal: Denies abdominal pain, Denies diarrhea, Denies nausea, Denies vomiting Past Medical History Past Medical History: Atrial Fibrillation, Coronary Artery Disease (CAD), Chest Pain / Angina, Heart Failure, Diabetes Mellitus, Eye Disorder, Hypertension, Myocardial Infarction ([place]), Osteoarthritis (OA), Pneumonia, Renal Disease, Vascular Disorder Additional Past Medical History / Comment(s): LEFT FOOT HAS BECOME GANGEROUS PER PATIENT. Pt recently admitted to [facility] on 06/16/21 with L foot cellulitis/L 4th toe amp and had peripheral vascular procedures with post hematoma and acute blood loss anemia. Other hx: NIDDM type II, neuropathy bilateral feet, 01-03-14 [place]/cardiac arrest/resp failure/intubation, CKD, chronic anemia, mild thrombocytopenia, PAD, UTIs, unsteady gait, FALLS, past L eye retinal bleed with surgery. Last Myocardial Infarction Date:: 01-03-14 History of Any Multi-Drug Resistant Organisms: None Reported Past Surgical History: Heart Catheterization, Heart Catheterization With Stent Additional Past Surgical History / Comment(s): 06/18/21 L 4th toe amputation, 06/2021 L fempop angiogram/L SFA atherectomy/PTBA, stent RCA 01-07-14, stent LAD 02/14/2019, L retinal bleed with surgery, bilateral cataract removal/lens implants, colonoscopy Past Anesthesia/Blood Transfusion Reactions: No Reported Reaction Date of Last Stent Placement:: 2018 Past Psychological History: No Psychological Hx Reported Smoking Status: Former smoker Past Alcohol Use History: None Reported Additional Past Alcohol Use History / Comment(s): started smoking at age 27, smoked 1/2 ppd quit 2002 Past Drug Use History: None Reported - Past Family History Father Family Medical History: Cancer, Diabetes Mellitus Additional Family Medical History / Comment(s): age 70 from lung cancer Mother Family Medical History: COPD Additional Family Medical History / Comment(s): age 83 emphysema Medications and Allergies Home Medications Medication Instructions Recorded Confirmed Type RX: Insulin Detemir (Levemir) 12 unit SQ HS ml 07/02/21 08/06/21 Rx [Levemir] RX: Pantoprazole [Protonix] 40 mg PO AC-BRKFST #0 tab 07/02/21 08/06/21 Rx RX: Econazole Nitrate [Econazole 1 applic TOPICAL HS 07/21/21 08/06/21 History Nitrate 1%] RX: Insulin Lispro [humaLOG 4 unit SQ ACHS 07/21/21 08/06/21 History Kwikpen] RX: Metoprolol Tartrate 12.5 mg PO BID 07/21/21 08/06/21 History RX: Midodrine HCl [ProAmatine] 10 mg PO TID 07/21/21 08/06/21 History RX: Spironolactone 25 mg PO QAM 07/21/21 08/06/21 History RX: metOLazone [Zaroxolyn] 2.5 mg PO QAM 07/21/21 08/06/21 History RX: traMADol HCL 50 mg PO Q6H PRN #12 tab 07/24/21 08/06/21 Rx Acetaminophen-Codeine 300-30mg 1 tab PO Q8H PRN 08/05/21 08/06/21 History [Tylenol w/codeine #3] Ondansetron [Zofran] 4 mg PO Q8H PRN 08/05/21 08/06/21 History RX: Furosemide [Lasix] 40 mg PO QAM 08/05/21 08/06/21 History Allergies Allergy/AdvReac Type Severity Reaction Status Date / Time Corticosteroids Allergy Unknown Unknown Verified 08/06/21 06:43 (Glucocorticoids) azithromycin [From Zithromax] Allergy Anaphylaxis Verified 08/06/21 06:43 banana Allergy Unknown Verified 08/06/21 06:43 carisoprodol [From Soma] Allergy Unknown Verified 08/06/21 06:43 ciprofloxacin [From Cipro] Allergy Unknown Verified 08/06/21 06:43 cortisone [Cortisone] Allergy Unknown Verified 08/06/21 06:43 cyclobenzaprine HCl Allergy Unknown Verified 08/06/21 06:43 [From Flexeril] latex Allergy Rash/Hives Verified 08/06/21 06:43 Latex, Natural Rubber Allergy Rash/Hives Verified 08/06/21 06:43 levofloxacin [From Levaquin] Allergy Anaphylaxis Verified 08/06/21 06:43 Penicillins Allergy Anaphylaxis Verified 08/06/21 06:43 codeine AdvReac Nausea & Verified 08/06/21 06:43 Vomiting Physical Exam Vitals: Vital Signs Temp Pulse Resp BP Pulse Ox 08/07/21 06:29 60 120/62 08/07/21 03:20 97.9 F 59 L 18 111/61 97 08/07/21 01:52 64 18 08/06/21 23:53 98.2 F 64 18 124/70 98 08/06/21 20:00 97.9 F 65 18 129/71 100 08/06/21 16:02 98.0 F 71 18 134/78 97 08/06/21 10:45 61 16 140/50 99 08/06/21 10:31 61 16 145/48 99 08/06/21 10:16 60 16 142/51 99 08/06/21 10:15 61 16 140/50 99 08/06/21 10:01 60 16 136/49 99 08/06/21 09:46 59 L 16 140/47 99 08/06/21 09:32 55 L 16 138/44 99 08/06/21 09:16 98.2 F 60 14 141/47 99 Intake and Output 08/06/21 08/07/21 08/07/21 22:59 06:59 14:59 Intake Total 180 300 Output Total 1130 Balance 180 -830 Intake: Oral 180 300 Output: Urine 800 Post Void Residual 330 Other: Voiding Method External Catheter External Catheter - Constitutional General appearance: no acute distress - EENT Eyes: EOMI - Neck Neck: no lymphadenopathy - Respiratory Respiratory: bilateral: CTA - Cardiovascular Rhythm: irregularly irregular Heart sounds: normal: S1, S2 Abnormal Heart Sounds: no S3 Gallop - Gastrointestinal General gastrointestinal: soft, no tenderness - Integumentary Status post agitation - Neurologic Neurologic: CNII-XII intact Results Labs: Abnormal Lab Results - Last 24 Hours (Table) 08/06/21 08/06/21 08/07/21 Range/Units 16:41 19:18 02:03 POC Glucose (mg/dL) 247 H 277 H 232 H (75-99) mg/dL 08/07/21 Range/Units 05:26 POC Glucose (mg/dL) 201 H (75-99) mg/dL Assessment and Plan (1) History of below knee amputation Current Visit: Yes Status: Acute Code(s): Z89.519 - ACQUIRED ABSENCE OF UNSPECIFIED LEG BELOW KNEE SNOMED Code(s): 835053176 (2) Anemia Current Visit: No Status: Acute Code(s): D64.9 - ANEMIA, UNSPECIFIED SNOMED Code(s): 705351469 (3) Atrial fibrillation Current Visit: No Status: Acute Code(s): I48.91 - UNSPECIFIED ATRIAL FIBRILLATION SNOMED Code(s): 34301373 (4) Necrotic toes Current Visit: No Status: Acute Code(s): I96 - GANGRENE, NOT ELSEWHERE CLASSIFIED SNOMED Code(s): 941126432 (5) Readmission after hospitalization within last 30 days Current Visit: No Status: Acute Code(s): FRY3032 - SNOMED Code(s): 919097357 (6) Systolic congestive heart failure Current Visit: No Status: Acute Code(s): I50.20 - UNSPECIFIED SYSTOLIC (CONGESTIVE) HEART FAILURE SNOMED Code(s): 46525309 (7) Type 2 diabetes mellitus with hyperosmolar hyperglycemic state (HHS) Current Visit: No Status: Acute Code(s): E11.00 - TYPE 2 DIAB W HYPROSM W/O NONKET HYPRGLY-HYPROS COMA (NKH[facility]); E11.65 - TYPE 2 DIABETES MELLITUS WITH HYPERGLYCEMIA SNOMED Code(s): 51554660 Plan: Restart home medications. Check CBC and CMP in a.m. Pain control per surgery. Dr. Appiah's group Route covering for the weekend. Appropriate postop pulmonary toilet.
[2021-08-07] MEDS: METOPROLOL TARTRATE 12.5 MG TAB PO SCH ×2 (09:51→22:15)
[2021-08-07] MEDS: FUROSEMIDE 40 MG TAB PO SCH (09:51)
[2021-08-07] MEDS: SPIRONOLACTONE 25 MG TAB PO SCH (09:51)
[2021-08-07] MEDS: metOLazone 2.5 MG TAB PO SCH (09:51)
--- NOTE | 2021-08-07 10:39 | P.PN ---
Subjective Progress Note Date: 08/07/21 Vicky is a 76-year-old female who is postoperative day 1 from a left below- knee amputation. She is doing well. Pain is relatively well controlled Objective - Vital Signs Vital signs: Vital Signs Temp 97.7 F 08/07/21 09:50 Pulse 68 08/07/21 09:50 Resp 16 08/07/21 09:50 BP 113/68 08/07/21 09:50 Pulse Ox 100 08/07/21 09:50 FiO2 Intake & Output 08/06/21 08/07/21 08/07/21 18:59 06:59 18:59 Intake Total 631 300 Output Total 75 1130 Balance 556 -830 Intake: IV 451 Oral 180 300 Output: Urine 800 Post Void Residual 330 Estimated Blood Loss 75 Other: Voiding Method External Catheter - Exam Gen. is a normal-appearing female in no acute distress. HEENT is normocephalic. Heart appears regular at this time. Lungs are clear bilaterally. Abdomen is soft. Left lower extremity dressing is clean and dry. 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 Increase activity. Hopeful for discharge in next 2-3 days.
--- NOTE | 2021-08-07 11:28 | CDI ---
Documentation Clarification Form Date: 08/07/2021 10:53:49 AM From: Lakshmi Hernandez RN CCDS Admit Date: 08/06/2021 05:50:00 AM Patient Name: Vicky Nixon V Visit Number: [id number] Discharge Date: ATTENTION: The Clinical Documentation Specialists (CDI) and [facility] Coding Staff appreciate your assistance in clarifying documentation. Please respond to the clarification below the line at the bottom and electronically sign. The CDI & [facility] Coding staff will review the response and follow-up if needed. Please note: Queries are made part of the Legal Health Record. If you have any questions, please contact the author of this message via ITS. Dr. Last Barrios Your patient has the documented diagnosis of unspecified systolic CHF 08/07, Medicine consult. Additional information regarding the acuity and type of CHF is requested. History/Risk Factors: 76-year-old female presents [facility] for elective Left BKA. Medical History: HTN and Heart Failure. 08/07, Medicine consult. Clinical Indicators: VS/Pulse OX: 08/06 B/P 160/68, HR 61, Temp 97.0 F Oral, RR 16, SpO2 99% room air Echocardiogram Results: 03/16/21 EF 55-60% right ventricle is mildly enlarged. LA is severely dilated , right atrium is mildly enlarged. Mild aortic valve sclerosis. Moderate to severe mitral regurgitation, Moderate tricuspid regurgitation Moderate pulmonary Htn. Treatment: 08/07 current Lasix 40mg PO QAM; 08/06 current Lopressor 12.5mg PO BID; 08/07 current Aldactone 25MG PO QAM. In your professional opinion, can you please clarify the acuity and type of CHF if known? [ ] Chronic Systolic Heart Failure (reduced EF) [ ] Chronic Diastolic Heart Failure (preserved EF) [ ] Other, please specify [ ] Unable to determine chronic systolic CHF documented in Medicine progress notes 08/08, 08/09 & 08/10 Dr Romero (Template Last Revised: April 2020) [facility]
[2021-08-07 12:41] LABS: Glucose,Whole Blood 174 mg/dL (75-99)
[2021-08-07] MEDS: HYDROcodone/APAP 5-325MG 1 EACH TAB PO PRN ×2 (13:58→22:16)
[2021-08-07 16:59] LABS: Glucose,Whole Blood 149 mg/dL (75-99)
[2021-08-07 21:08] LABS: Glucose,Whole Blood 185 mg/dL (75-99)
[2021-08-07] MEDS: INSULIN DETEMIR (LEVEMIR) 100 UNIT/ML SYR SQ SCH (22:17)
[2021-08-07] MEDS: CLOTRIMAZOLE 1% CREAM 30 GM TUBE TOPICAL SCH (22:50)
[2021-08-08] MEDS: HYDROcodone/APAP 5-325MG 1 EACH TAB PO PRN ×4 (03:33→20:19)
[2021-08-08 06:05] LABS: Glucose,Whole Blood 130 mg/dL (75-99)
[2021-08-08] MEDS: LACTATED RINGERS 1,000 ML IV SCH ×2 (06:09→20:21)
[2021-08-08] MEDS: INSULIN ASPART (NovoLOG) 100 UNIT/ML VIAL SQ SCH ×8 (06:28→22:04)
[2021-08-08] MEDS: PANTOPRAZOLE 40 MG TABLET PO SCH (06:31)
[2021-08-08] MEDS: MIDODRINE 5 MG TAB PO SCH ×3 (06:31→16:21)
[2021-08-08] MEDS: FUROSEMIDE 40 MG TAB PO SCH (08:41)
[2021-08-08] MEDS: METOPROLOL TARTRATE 12.5 MG TAB PO SCH ×2 (08:41→20:21)
[2021-08-08] MEDS: metOLazone 2.5 MG TAB PO SCH (08:41)
[2021-08-08] MEDS: SPIRONOLACTONE 25 MG TAB PO SCH (08:41)
[2021-08-08 10:10] LABS: Albumin 3.2 g/dL (3.5-5.0); Calcium 8.6 mg/dL (8.4-10.2); Total Bilirubin 0.7 mg/dL (0.2-1.3); Total Protein 6.2 g/dL (6.3-8.2)
[2021-08-08 10:17] LABS: HCT 29.4 % (34.0-46.0); HGB 8.7 gm/dL (11.4-16.0); Hypochromasia Marked; MCH 28.5 pg (25.0-35.0); MCHC 29.6 g/dL (31.0-37.0); MCV 96.2 fL (80.0-100.0); Mean Platelet Volume 9.6; Platelet Count 272 k/uL (150-450); RBC 3.05 m/uL (3.80-5.40); RDW 15.8 % (11.5-15.5); WBC 12.9 k/uL (3.8-10.6)
[2021-08-08 12:16] LABS: Glucose,Whole Blood 179 mg/dL (75-99)
[2021-08-08 16:43] LABS: Glucose,Whole Blood 88 mg/dL (75-99)
[2021-08-08] MEDS: MORPHINE SULFATE 2 MG/ML SYRINGE IVP PRN (17:50)
[2021-08-08] MEDS: CLOTRIMAZOLE 1% CREAM 30 GM TUBE TOPICAL SCH (20:22)
--- NOTE | 2021-08-08 21:28 | P.PN ---
Subjective Progress Note Date: 08/08/21 Principal diagnosis: left foot gangrene Doing well since her left bka. Hard dressing placed and per patient her pain is controlled. She denies any fevers, chills, chest pain or shortness of breath Objective - Vital Signs Vital signs: Vital Signs Temp 97.5 F L 08/08/21 20:00 Pulse 58 L 08/08/21 20:00 Resp 16 08/08/21 20:00 BP 121/74 08/08/21 20:00 Pulse Ox 100 08/08/21 20:00 FiO2 Intake & Output 08/08/21 08/08/21 08/09/21 06:59 18:59 06:59 Intake Total 240 Output Total 350 200 Balance -110 -200 Intake: Oral 240 Output: Urine 350 200 Other: Voiding Method External Catheter External Catheter External Catheter # Bowel Movements 1 - Exam left bka dressings in place. - Constitutional General appearance: Present: cooperative - Respiratory Respiratory: bilateral: CTA - Cardiovascular Rhythm: regular - Labs CBC & Chem 7: 08/08/21 09:02 08/08/21 09:02 Labs: Abnormal Lab Results - Last 24 Hours (Table) 08/08/21 08/08/21 08/08/21 Range/Units 05:45 09:02 09:02 WBC 12.9 H (3.8-10.6) k/uL RBC 3.05 L (3.80-5.40) m/uL Hgb 8.7 L (11.4-16.0) gm/dL Hct 29.4 L (34.0-46.0) % MCHC 29.6 L (31.0-37.0) g/dL RDW 15.8 H (11.5-15.5) % Sodium 132 L (137-145) mmol/L Carbon Dioxide 19 L (22-30) mmol/L BUN 80 H (7-17) mg/dL Creatinine 2.28 H (0.52-1.04) mg/dL POC Glucose (mg/dL) 130 H (75-99) mg/dL Total Protein 6.2 L (6.3-8.2) g/dL Albumin 3.2 L (3.5-5.0) g/dL 08/08/21 Range/Units 12:13 WBC (3.8-10.6) k/uL RBC (3.80-5.40) m/uL Hgb (11.4-16.0) gm/dL Hct (34.0-46.0) % MCHC (31.0-37.0) g/dL RDW (11.5-15.5) % Sodium (137-145) mmol/L Carbon Dioxide (22-30) mmol/L BUN (7-17) mg/dL Creatinine (0.52-1.04) mg/dL POC Glucose (mg/dL) 179 H (75-99) mg/dL Total Protein (6.3-8.2) g/dL Albumin (3.5-5.0) g/dL Assessment and Plan Assessment: Left foot gangrene s/p below knee amputation Plan: Dressings to be changed Tuesday or Tuesday.
[2021-08-08 21:49] LABS: Glucose,Whole Blood 157 mg/dL (75-99)
[2021-08-08] MEDS: INSULIN DETEMIR (LEVEMIR) 100 UNIT/ML SYR SQ SCH (22:04)
[2021-08-09] MEDS: HYDROcodone/APAP 5-325MG 1 EACH TAB PO PRN ×4 (03:09→17:59)
[2021-08-09] MEDS: MIDODRINE 5 MG TAB PO SCH ×3 (06:41→17:17)
[2021-08-09] MEDS: PANTOPRAZOLE 40 MG TABLET PO SCH (06:41)
[2021-08-09 07:29] LABS: Glucose,Whole Blood 192 mg/dL (75-99)
[2021-08-09] MEDS: INSULIN ASPART (NovoLOG) 100 UNIT/ML VIAL SQ SCH ×9 (08:37→20:30)
[2021-08-09] MEDS: FUROSEMIDE 40 MG TAB PO SCH (08:47)
[2021-08-09] MEDS: metOLazone 2.5 MG TAB PO SCH (08:47)
[2021-08-09] MEDS: SPIRONOLACTONE 25 MG TAB PO SCH (08:47)
[2021-08-09] MEDS: METOPROLOL TARTRATE 12.5 MG TAB PO SCH ×2 (08:47→20:20)
[2021-08-09] MEDS: MORPHINE SULFATE 2 MG/ML SYRINGE IVP PRN ×2 (08:52→13:25)
[2021-08-09 12:01] LABS: Glucose,Whole Blood 140 mg/dL (75-99)
--- NOTE | 2021-08-09 12:59 | P.PN ---
Subjective Progress Note Date: 08/08/21 This is a history of physical 76-year-old white female with history of diabetic nephropathy with neuropathy and atrial fibrillation with history of GI bleed in the remote past who is here essentially for PAD. consulted for medical management. 08/08/2021 Patient was transferred left below-knee amputation. Postoperative day 2 Patient is complaining of phantom pain. No fever no chills. No complaints of chest pain or shortness of breath. Dressings changed as per vascular surgery. Laboratory showed WBC 12.9 hemoglobin 8.7 platelets 272 Sodium 132 potassium 5.0 chloride 99 bicarb is 14, BUN 18 creatinine 2.28 Blood sugar is controlled. Current medications reviewed. Objective - Vital Signs Vital signs: Vital Signs Temp 97.8 F 08/09/21 03:08 Pulse 58 L 08/09/21 12:00 Resp 16 08/09/21 12:00 BP 122/56 08/09/21 12:00 Pulse Ox 94 L 08/09/21 12:00 FiO2 Intake & Output 08/08/21 08/09/21 08/09/21 18:59 06:59 18:59 Intake Total 120 Output Total 200 525 Balance -200 -525 120 Intake: Oral 120 Output: Urine 200 525 Other: Voiding Method External Catheter External Catheter External Catheter # Bowel Movements 1 1 - Exam PHYSICAL EXAMINATION: Patient is lying in the bed comfortably, no acute distress, awake alert and oriented.. HEENT: Normocephalic. Neck is supple. Pupils reactive. Nostrils clear. Oral cavity is moist. Neck reveals no JVD, carotid bruits, or thyromegaly. CHEST EXAMINATION: Trachea is central. Symmetrical expansion. Lung hanley clear to auscultation and percussion. CARDIAC: Normal S1, S2 with no gallops. No murmurs ABDOMEN: Soft. Bowel sounds normal. No organomegaly. No abdominal bruits. Extremities: reveal no edema. Left BKA. Hard dressing in place. No clubbing or cyanosis Neurologically awake, alert, oriented x3 with well-coordinated movements. No focal deficits noted Skin: No rash or skin lesions. Psychiatric: Cooperative. Nonsuicidal Musculoskeletal: No joint swelling or deformity. - Labs CBC & Chem 7: 08/08/21 09:02 08/08/21 09:02 Labs: Abnormal Lab Results - Last 24 Hours (Table) 08/08/21 08/09/21 08/09/21 Range/Units 21:44 07:27 11:59 POC Glucose (mg/dL) 157 H 192 H 140 H (75-99) mg/dL Assessment and Plan Assessment: Left foot gangrene status post left BKA on 08/06/2021 Diabetes type 2 insulin-dependent Diabetic peripheral neuropathy Chronic kidney disease stage III Hypertension Paroxysmal atrial fibrillation not on anticoagulation with history of GI bleed Chronic CHF with systolic dysfunction DVT prophylaxis and GI prophylaxis Plan: Encourage incentive spirometry Patient remains on Levemir and insulin sliding scale and titrate dose as needed. Patient is on midodrine. Will follow closely and further recommendations based on clinical course. Pain control per surgery. Time with Patient: Greater than 30
[2021-08-09 16:56] LABS: Glucose,Whole Blood 109 mg/dL (75-99)
[2021-08-09] MEDS: GABAPENTIN 300 MG CAP PO SCH (18:37)
[2021-08-09] MEDS: LACTATED RINGERS 1,000 ML IV SCH (20:10)
[2021-08-09] MEDS: CLOTRIMAZOLE 1% CREAM 30 GM TUBE TOPICAL SCH (20:16)
[2021-08-09 20:30] LABS: Glucose,Whole Blood 148 mg/dL (75-99)
[2021-08-09] MEDS: INSULIN DETEMIR (LEVEMIR) 100 UNIT/ML SYR SQ SCH (20:42)
[2021-08-10] MEDS: GABAPENTIN 300 MG CAP PO SCH ×4 (00:16→23:22)
--- NOTE | 2021-08-10 00:29 | P.PN ---
Subjective Progress Note Date: 08/09/21 This is a history of physical 76-year-old white female with history of diabetic nephropathy with neuropathy and atrial fibrillation with history of GI bleed in the remote past who is here essentially for PAD. consulted for medical management. 08/08/2021 Patient was transferred left below-knee amputation. Postoperative day 2 Patient is complaining of phantom pain. No fever no chills. No complaints of chest pain or shortness of breath. Dressings changed as per vascular surgery. Laboratory showed WBC 12.9 hemoglobin 8.7 platelets 272 Sodium 132 potassium 5.0 chloride 99 bicarb is 14, BUN 18 creatinine 2.28 Blood sugar is controlled. 08/09/2021 Patient is currently resting in the bed. Awake alert and oriented. Complains of left lower extremity pain/phantom pain. No chest pain or shortness of breath. No cough or sputum production. Blood sugars controlled. Patient has been afebrile. Tolerating oral diet. Monitor renal function tomorrow. Current medications reviewed. Objective - Vital Signs Vital signs: Vital Signs Temp 97.6 F 08/09/21 20:00 Pulse 59 L 08/09/21 20:00 Resp 16 08/09/21 20:00 BP 126/57 08/09/21 20:00 Pulse Ox 99 08/09/21 20:00 FiO2 Intake & Output 08/09/21 08/09/21 08/10/21 06:59 18:59 06:59 Intake Total 120 Output Total 525 150 Balance -525 -30 Intake: Oral 120 Output: Urine 525 150 Other: Voiding Method External Catheter External Catheter External Catheter # Bowel Movements 1 - Exam PHYSICAL EXAMINATION: Patient is lying in the bed comfortably, no acute distress, awake alert and oriented.. HEENT: Normocephalic. Neck is supple. Pupils reactive. Nostrils clear. Oral cav ity is moist. Neck reveals no JVD, carotid bruits, or thyromegaly. CHEST EXAMINATION: Trachea is central. Symmetrical expansion. Lung hanley clear to auscultation and percussion. CARDIAC: Normal S1, S2 with no gallops. No murmurs ABDOMEN: Soft. Bowel sounds normal. No organomegaly. No abdominal bruits. Extremities: reveal no edema. Left BKA. Hard dressing in place. No clubbing or cyanosis Neurologically awake, alert, oriented x3 with well-coordinated movements. No focal deficits noted Skin: No rash or skin lesions. Psychiatric: Cooperative. Nonsuicidal Musculoskeletal: No joint swelling or deformity. - Labs CBC & Chem 7: 08/08/21 09:02 08/08/21 09:02 Labs: Abnormal Lab Results - Last 24 Hours (Table) 08/09/21 08/09/21 08/09/21 Range/Units 07:27 11:59 16:54 POC Glucose (mg/dL) 192 H 140 H 109 H (75-99) mg/dL 08/09/21 Range/Units 20:29 POC Glucose (mg/dL) 148 H (75-99) mg/dL Assessment and Plan Assessment: Left foot gangrene status post left BKA on 08/06/2021 Diabetes type 2 insulin-dependent Diabetic peripheral neuropathy Chronic kidney disease stage III Hypertension Paroxysmal atrial fibrillation not on anticoagulation with history of GI bleed Chronic CHF with systolic dysfunction DVT prophylaxis and GI prophylaxis Plan: Encourage incentive spirometry Patient remains on Levemir and insulin sliding scale and titrate dose as needed. Patient is on midodrine. Will follow closely and further recommendations based on clinical course. Pain control per surgery. Time with Patient: Greater than 30
[2021-08-10 06:08] LABS: Glucose,Whole Blood 143 mg/dL (75-99)
[2021-08-10] MEDS: MIDODRINE 5 MG TAB PO SCH ×3 (06:42→17:42)
[2021-08-10] MEDS: PANTOPRAZOLE 40 MG TABLET PO SCH (06:42)
[2021-08-10] MEDS: INSULIN ASPART (NovoLOG) 100 UNIT/ML VIAL SQ SCH ×8 (06:43→20:27)
[2021-08-10 06:44] LABS: Basophils # (A) 0.1 k/uL (0-0.2); Basophils % (A) 1 %; Eosinophils # (A) 0.2 k/uL (0-0.7); Eosinophils % (A) 2 %; HCT 28.2 % (34.0-46.0); HGB 8.6 gm/dL (11.4-16.0); Hypochromasia Marked; Lymphocytes # (A) 1.8 k/uL (1.0-4.8); Lymphocytes % (A) 26 %; MCH 28.6 pg (25.0-35.0); MCHC 30.4 g/dL (31.0-37.0); MCV 94.1 fL (80.0-100.0); Mean Platelet Volume 9.2; Monocytes # (A) 0.7 k/uL (0-1.0); Monocytes % (A) 11 %; Neutrophils % (A) 58 %; Platelet Count 245 k/uL (150-450); RDW 15.8 % (11.5-15.5)
[2021-08-10 07:17] LABS: Calcium 8.2 mg/dL (8.4-10.2)
--- NOTE | 2021-08-10 08:31 | P.PN ---
Subjective Progress Note Date: 08/10/21 Principal diagnosis: left foot gangrene Called yesterday to address pain. Patient started on gabapentin. No new events overnight. Objective - Vital Signs Vital signs: Vital Signs Temp 97.6 F 08/10/21 03:35 Pulse 53 L 08/10/21 03:35 Resp 16 08/10/21 03:35 BP 120/70 08/10/21 03:35 Pulse Ox 100 08/10/21 03:35 FiO2 Intake & Output 08/09/21 08/10/21 08/10/21 18:59 06:59 18:59 Intake Total 120 300 Output Total 150 800 Balance -30 -500 Intake: Oral 120 300 Output: Urine 150 800 Other: Voiding Method External Catheter External Catheter # Voids 2 - Labs CBC & Chem 7: 08/10/21 05:43 08/10/21 05:43 Labs: Abnormal Lab Results - Last 24 Hours (Table) 08/09/21 08/09/21 08/09/21 Range/Units 11:59 16:54 20:29 RBC (3.80-5.40) m/uL Hgb (11.4-16.0) gm/dL Hct (34.0-46.0) % MCHC (31.0-37.0) g/dL RDW (11.5-15.5) % Sodium (137-145) mmol/L Carbon Dioxide (22-30) mmol/L BUN (7-17) mg/dL Creatinine (0.52-1.04) mg/dL Glucose (74-99) mg/dL POC Glucose (mg/dL) 140 H 109 H 148 H (75-99) mg/dL Calcium (8.4-10.2) mg/dL 08/10/21 08/10/21 08/10/21 Range/Units 05:43 05:43 06:06 RBC 3.00 L (3.80-5.40) m/uL Hgb 8.6 L (11.4-16.0) gm/dL Hct 28.2 L (34.0-46.0) % MCHC 30.4 L (31.0-37.0) g/dL RDW 15.8 H (11.5-15.5) % Sodium 130 L (137-145) mmol/L Carbon Dioxide 20 L (22-30) mmol/L BUN 76 H (7-17) mg/dL Creatinine 2.12 H (0.52-1.04) mg/dL Glucose 136 H (74-99) mg/dL POC Glucose (mg/dL) 143 H (75-99) mg/dL Calcium 8.2 L (8.4-10.2) mg/dL Assessment and Plan Assessment: Left foot gangrene s/p below knee amputation Plan: Reviewed labs-stable H/H Continue pain control. Dressings to be changed Tuesday or Tuesday.
[2021-08-10] MEDS: metOLazone 2.5 MG TAB PO SCH (09:38)
[2021-08-10] MEDS: SPIRONOLACTONE 25 MG TAB PO SCH (09:38)
[2021-08-10] MEDS: FUROSEMIDE 40 MG TAB PO SCH (09:38)
[2021-08-10 11:54] LABS: Glucose,Whole Blood 198 mg/dL (75-99)
[2021-08-10] MEDS: METOPROLOL TARTRATE 12.5 MG TAB PO SCH ×2 (12:57→21:20)
--- NOTE | 2021-08-10 14:51 | P.PN ---
Subjective Progress Note Date: 08/10/21 This is a history of physical 76-year-old white female with history of diabetic nephropathy with neuropathy and atrial fibrillation with history of GI bleed in the remote past who is here essentially for PAD. consulted for medical management. 08/08/2021 Patient was transferred left below-knee amputation. Postoperative day 2 Patient is complaining of phantom pain. No fever no chills. No complaints of chest pain or shortness of breath. Dressings changed as per vascular surgery. Laboratory showed WBC 12.9 hemoglobin 8.7 platelets 272 Sodium 132 potassium 5.0 chloride 99 bicarb is 14, BUN 18 creatinine 2.28 Blood sugar is controlled. 08/09/2021 Patient is currently resting in the bed. Awake alert and oriented. Complains of left lower extremity pain/phantom pain. No chest pain or shortness of breath. No cough or sputum production. Blood sugars controlled. Patient has been afebrile. Tolerating oral diet. Monitor renal function tomorrow. 08/10/2021 Patient is seen in follow-up today currently sitting up in bed with family members at the bedside. Sodium slightly low at 130 and potassium is 5.0, creatinine is 2.12 which is trending down and patient does have history of CHF and chronic kidney disease. Patient is status post left BKA with immobilizer noted. Vascular surgery planning ECF return as patient is a resident at [facility]. Family would prefer for patient have wound care here at the hospital in ECF does provide transportation for this. Patient with some lower extremity pain and was recently started on Neurontin with significant improvement per the patient. Patient tolerating diet with no reports of nausea or vomiting and denies any shortness of breath or chest pain. Patient is afebrile. Review of systems: Constitutional: No reports of fatigue, fever, or chills Cardiovascular: No reports of chest pain or palpitations Respiratory: No reports of shortness of breath or cough GI: No reports of nausea, vomiting, or diarrhea : No reports of dysuria or retention Neurovascular: No reports of weakness or numbness All medications have been reviewed Active Medications Hydrocodone Bitart/Acetaminophen (Hydrocodone/Apap 5-325mg 1 Each Tab) 1 each PO Q4HR PRN PRN Reason: Pain Scale 6 to 7 Last Admin: 08/09/21 17:59 Dose: 1 each Clotrimazole (Clotrimazole 1% Cream 30 Gm Tube) 1 applic TOPICAL [facility] Last Admin: 08/09/21 20:16 Dose: Not Given Furosemide (Furosemide 40 Mg Tab) 40 mg PO QAM [facility] Last Admin: 08/10/21 09:38 Dose: 40 mg Gabapentin (Gabapentin 300 Mg Cap) 300 mg PO TID [facility] Last Admin: 08/10/21 09:38 Dose: 300 mg Lactated Ringer's (Lactated Ringers) 1,000 mls @ 20 mls/hr IV .Q24H [facility] Last Admin: 08/09/21 20:10 Dose: Not Given Insulin Aspart (Insulin Aspart (Novolog) 100 Unit/Ml Vial) 4 unit SQ ACHS [facility] Last Admin: 08/10/21 12:57 Dose: 4 unit Insulin Aspart (Insulin Aspart (Novolog) 100 Unit/Ml Vial) 0 unit SQ [facility]; Protocol Last Admin: 08/10/21 12:57 Dose: 2 unit Insulin Detemir (Insulin Detemir (Levemir) 100 Unit/Ml Syr) 12 unit SQ [facility] Last Admin: 08/09/21 20:42 Dose: 12 unit Lidocaine HCl (Lidocaine 1% (10mg/Ml) For Iv Start) 0.1 ml INTRADERMA PER PROTOCOL PRN PRN Reason: IV Start Metolazone (Metolazone 2.5 Mg Tab) [facility] Last Admin: 08/10/21 09:38 Dose: 2.5 mg Metoprolol Tartrate (Metoprolol Tartrate 12.5 Mg Tab) 12.5 mg PO BID [facility] Last Admin: 08/10/21 12:57 Dose: 12.5 mg Midodrine (Midodrine 5 Mg Tab) 10 mg PO AC-TID [facility] Last Admin: 08/10/21 12:57 Dose: 10 mg Morphine Sulfate (Morphine Sulfate 2 Mg/Ml Syringe) 2 mg IVP Q3HR PRN PRN Reason: Severe Pain Last Admin: 08/09/21 13:25 Dose: 2 mg Ondansetron HCl (Ondansetron 4 Mg/2 Ml Vial) 4 mg IVP Q6HR PRN PRN Reason: Nausea And Vomiting WHEN IV Ondansetron HCl (Ondansetron 4 Mg Tab) 4 mg PO Q8H PRN PRN Reason: Nausea WHEN PO Pantoprazole Sodium (Pantoprazole 40 Mg Tablet) 40 mg PO AC-BRKFST [facility] Last Admin: 08/10/21 06:42 Dose: 40 mg Spironolactone (Spironolactone 25 Mg Tab) 25 mg PO QAM [facility] Last Admin: 08/10/21 09:38 Dose: 25 mg PHYSICAL EXAMINATION: Patient is sitting up in the bed, awake alert and oriented.. Well-developed, well-nourished HEENT: Normocephalic. Neck is supple. Pupils reactive. Nostrils clear. Oral cavity is moist. Neck reveals no JVD, carotid bruits, or thyromegaly. CHEST EXAMINATION: Trachea is central. Symmetrical expansion. Lung hanley clear to auscultation and percussion. CARDIAC: S1, S2 are muffled ABDOMEN: Soft. Bowel sounds normal. No organomegaly. No abdominal bruits. Extremities: reveal no edema. Left BKA. Hard dressing in place. No clubbing or cyanosis Neurologically awake, alert, oriented x3 with well-coordinated movements. No focal deficits noted Skin: No rash or skin lesions. Psychiatric: Cooperative. Non-suicidal Musculoskeletal: No joint swelling or deformity. Assessment: Left foot gangrene status post left BKA on 08/06/2021 Diabetes type 2 insulin-dependent Diabetic peripheral neuropathy Chronic kidney disease stage III Hypertension Paroxysmal atrial fibrillation not on anticoagulation with history of GI bleed Chronic CHF with systolic dysfunction DVT prophylaxis and GI prophylaxis Full code Plan: Encourage incentive spirometry Patient remains on Levemir and insulin sliding scale and titrate dose as needed. Patient is on midodrine. Patient receiving wound care here and discussed with family about possibly receiving wound care at the hospital as opposed to F. Patient is a resident at [facility]. Patient follows with Dr. Barrios who will resume care on 08/11/2021 and will discuss with case management about arranging for wound care here at the hospital Recommend continue with local wound care per vascular surgery services and will continue to follow along during hospitalization. Thank you for this consultation. Will follow closely and further recommendations based on clinical course. Pain control per surgery. The impression and plan of care has been dictated by Valery Garcia, Nurse Practitioner as directed. Dr. Td MD I have performed a history and examination and MDM of this patient, discussed the same with the dictator, and agree with the dictator's assessment and plan as written ,documented as a scribe. Based on total visit time, I have performed more than 50% of the visit. Objective - Vital Signs Vital signs: Vital Signs Temp 98.0 F 08/10/21 09:15 Pulse 52 L 08/10/21 09:15 Resp 16 08/10/21 09:15 BP 132/70 08/10/21 09:15 Pulse Ox 100 08/10/21 09:15 FiO2 Intake & Output 08/09/21 08/10/21 08/10/21 18:59 06:59 18:59 Intake Total 120 300 120 Output Total 150 800 Balance -30 -500 120 Intake: Oral 120 300 120 Output: Urine 150 800 Other: Voiding Method External Catheter External Catheter External Catheter # Voids 2 - Labs CBC & Chem 7: 08/10/21 05:43 08/10/21 05:43 Labs: Abnormal Lab Results - Last 24 Hours (Table) 08/09/21 08/09/21 08/10/21 Range/Units 16:54 20:29 05:43 RBC 3.00 L (3.80-5.40) m/uL Hgb 8.6 L (11.4-16.0) gm/dL Hct 28.2 L (34.0-46.0) % MCHC 30.4 L (31.0-37.0) g/dL RDW 15.8 H (11.5-15.5) % Sodium (137-145) mmol/L Carbon Dioxide (22-30) mmol/L BUN (7-17) mg/dL Creatinine (0.52-1.04) mg/dL Glucose (74-99) mg/dL POC Glucose (mg/dL) 109 H 148 H (75-99) mg/dL Calcium (8.4-10.2) mg/dL 08/10/21 08/10/21 08/10/21 Range/Units 05:43 06:06 11:52 RBC (3.80-5.40) m/uL Hgb (11.4-16.0) gm/dL Hct (34.0-46.0) % MCHC (31.0-37.0) g/dL RDW (11.5-15.5) % Sodium 130 L (137-145) mmol/L Carbon Dioxide 20 L (22-30) mmol/L BUN 76 H (7-17) mg/dL Creatinine 2.12 H (0.52-1.04) mg/dL Glucose 136 H (74-99) mg/dL POC Glucose (mg/dL) 143 H 198 H (75-99) mg/dL Calcium 8.2 L (8.4-10.2) mg/dL
[2021-08-10 16:43] LABS: Glucose,Whole Blood 214 mg/dL (75-99)
[2021-08-10] MEDS: LACTATED RINGERS 1,000 ML IV SCH (17:36)
[2021-08-10 20:16] LABS: Glucose,Whole Blood 102 mg/dL (75-99)
[2021-08-10] MEDS: CLOTRIMAZOLE 1% CREAM 30 GM TUBE TOPICAL SCH (20:28)
[2021-08-10] MEDS: INSULIN DETEMIR (LEVEMIR) 100 UNIT/ML SYR SQ SCH (21:20)
[2021-08-11 06:04] LABS: Glucose,Whole Blood >600 mg/dL (75-99)
[2021-08-11 06:04] LABS: Glucose,Whole Blood 193 mg/dL (75-99)
[2021-08-11] MEDS: MIDODRINE 5 MG TAB PO SCH ×3 (06:26→17:09)
[2021-08-11] MEDS: INSULIN ASPART (NovoLOG) 100 UNIT/ML VIAL SQ SCH ×8 (06:27→20:59)
[2021-08-11] MEDS: PANTOPRAZOLE 40 MG TABLET PO SCH (06:27)
--- NOTE | 2021-08-11 08:41 | P.PN ---
Subjective Progress Note Date: 08/11/21 Principal diagnosis: Status post fqxri-luq-ypko habitation on the left. The patient is 76-year-old white female with known history of brittle diabetes and PAD who essentially ended up having gangrenous foot. The patient is status post BKA on the left. Pain control seems nominal. She is resting comfortably no diarrhea stated. Objective - Vital Signs Vital signs: Vital Signs Temp 97.9 F 08/11/21 03:56 Pulse 57 L 08/11/21 03:56 Resp 18 08/11/21 03:56 BP 113/50 08/11/21 03:56 Pulse Ox 98 08/11/21 03:56 FiO2 Intake & Output 08/10/21 08/11/21 08/11/21 18:59 06:59 18:59 Intake Total 120 300 Output Total 300 Balance -180 300 Intake: Oral 120 300 Output: Urine 300 Other: Voiding Method External Catheter External Catheter # Voids 1 # Bowel Movements 1 - Constitutional General appearance: Present: average body habitus - EENT Eyes: Absent: abnormal pupil - Neck Neck: Absent: lymphadenopathy - Respiratory Respiratory: bilateral: CTA - Cardiovascular Rhythm: irregularly irregular Heart sounds: normal: S1, S2 Abnormal Heart Sounds: Absent: S3 Gallop - Gastrointestinal General gastrointestinal: Present: soft. Absent: tenderness - Labs CBC & Chem 7: 08/10/21 05:43 08/10/21 05:43 Labs: Abnormal Lab Results - Last 24 Hours (Table) 08/10/21 08/10/21 08/10/21 Range/Units 11:52 16:36 20:15 POC Glucose (mg/dL) 198 H 214 H 102 H (75-99) mg/dL 08/11/21 08/11/21 Range/Units 05:59 06:02 POC Glucose (mg/dL) >600 H 193 H (75-99) mg/dL Assessment and Plan (1) History of below knee amputation Current Visit: Yes Status: Acute Code(s): Z89.519 - ACQUIRED ABSENCE OF UNSPECIFIED LEG BELOW KNEE SNOMED Code(s): 587022632 (2) Anemia Current Visit: No Status: Acute Code(s): D64.9 - ANEMIA, UNSPECIFIED SNOMED Code(s): 320156264 (3) Atrial fibrillation Current Visit: No Status: Acute Code(s): I48.91 - UNSPECIFIED ATRIAL FIBRILLATION SNOMED Code(s): 97858386 (4) Necrotic toes Current Visit: No Status: Acute Code(s): I96 - GANGRENE, NOT ELSEWHERE CLA SSIFIED SNOMED Code(s): 844022803 (5) Readmission after hospitalization within last 30 days Current Visit: No Status: Acute Code(s): HQK0055 - SNOMED Code(s): 695310089 (6) Systolic congestive heart failure Current Visit: No Status: Acute Code(s): I50.20 - UNSPECIFIED SYSTOLIC (CONGESTIVE) HEART FAILURE SNOMED Code(s): 20148927 (7) Type 2 diabetes mellitus with hyperosmolar hyperglycemic state (HHS) Current Visit: No Status: Acute Code(s): E11.00 - TYPE 2 DIAB W HYPROSM W/O NONKET HYPRGLY-HYPROS COMA (NKHHC); E11.65 - TYPE 2 DIABETES MELLITUS WITH HYPERGLYCEMIA SNOMED Code(s): 44413287 Plan: Check CBC and CMP in a.m. Appropriate postop pulmonary toilet. Anticipate discharge within the next 24-48 hours when cleared by vascular surgery. Watch for appropriate blood sugar control.
[2021-08-11] MEDS: GABAPENTIN 300 MG CAP PO SCH ×3 (08:48→21:03)
[2021-08-11] MEDS: SPIRONOLACTONE 25 MG TAB PO SCH (08:48)
[2021-08-11] MEDS: FUROSEMIDE 40 MG TAB PO SCH (08:48)
[2021-08-11] MEDS: METOPROLOL TARTRATE 12.5 MG TAB PO SCH ×2 (08:48→21:03)
[2021-08-11] MEDS: metOLazone 2.5 MG TAB PO SCH (08:49)
[2021-08-11 11:21] LABS: Calcium 8.3 mg/dL (8.4-10.2)
[2021-08-11 11:26] LABS: Potassium 5.1 mmol/L (3.5-5.1)
[2021-08-11 11:50] LABS: Glucose,Whole Blood 216 mg/dL (75-99)
[2021-08-11] MEDS: MORPHINE SULFATE 2 MG/ML SYRINGE IVP PRN (16:32)
[2021-08-11 16:41] LABS: Glucose,Whole Blood 255 mg/dL (75-99)
[2021-08-11 20:28] LABS: Glucose,Whole Blood 80 mg/dL (75-99)
[2021-08-11] MEDS: CLOTRIMAZOLE 1% CREAM 30 GM TUBE TOPICAL SCH (20:59)
[2021-08-11] MEDS: INSULIN DETEMIR (LEVEMIR) 100 UNIT/ML SYR SQ SCH (21:03)
[2021-08-11] MEDS: LACTATED RINGERS 1,000 ML IV SCH (21:04)
[2021-08-12 06:11] LABS: Glucose,Whole Blood 229 mg/dL (75-99)
[2021-08-12] MEDS: INSULIN ASPART (NovoLOG) 100 UNIT/ML VIAL SQ SCH ×8 (06:33→20:15)
[2021-08-12] MEDS: PANTOPRAZOLE 40 MG TABLET PO SCH (06:34)
[2021-08-12] MEDS: MIDODRINE 5 MG TAB PO SCH ×3 (06:34→16:15)
--- NOTE | 2021-08-12 09:00 | P.PN ---
Subjective Principal diagnosis: Status post oefxu-meb-fgsu habitation on the left. The patient is 76-year-old white female with known history of brittle diabetes and PAD who essentially ended up having gangrenous foot. The patient is status post BKA on the left. Pain control seems nominal. She is resting comfortably no diarrhea stated. Objective - Vital Signs Vital signs: Vital Signs Temp 98.0 F 08/12/21 04:00 Pulse 53 L 08/12/21 04:00 Resp 16 08/12/21 04:00 BP 120/61 08/12/21 04:00 Pulse Ox 98 08/12/21 04:00 FiO2 Intake & Output 08/11/21 08/12/21 08/12/21 18:59 06:59 18:59 Intake Total 360 Output Total 650 1250 Balance -290 -1250 Intake: Oral 360 Output: Urine 650 1250 Other: Voiding Method External Catheter External Catheter - Constitutional General appearance: Present: average body habitus - EENT Eyes: Absent: abnormal pupil - Neck Neck: Absent: lymphadenopathy - Respiratory Respiratory: bilateral: CTA - Cardiovascular Rhythm: irregularly irregular Heart sounds: normal: S1, S2 Abnormal Heart Sounds: Absent: S3 Gallop - Gastrointestinal General gastrointestinal: Present: soft. Absent: tenderness - Psychiatric Psychiatric: Present: A&O x's 3, appropriate affect - Labs CBC & Chem 7: 08/10/21 05:43 08/11/21 09:33 Labs: Abnormal Lab Results - Last 24 Hours (Table) 08/11/21 08/11/21 08/11/21 Range/Units 09:33 11:49 16:40 Sodium 132 L (137-145) mmol/L Chloride 97 L (98-107) mmol/L BUN 74 H (7-17) mg/dL Creatinine 1.94 H (0.52-1.04) mg/dL Glucose 106 H (74-99) mg/dL POC Glucose (mg/dL) 216 H 255 H (75-99) mg/dL Calcium 8.3 L (8.4-10.2) mg/dL 08/12/21 Range/Units 06:10 Sodium (137-145) mmol/L Chloride (98-107) mmol/L BUN (7-17) mg/dL Creatinine (0.52-1.04) mg/dL Glucose (74-99) mg/dL POC Glucose (mg/dL) 229 H (75-99) mg/dL Calcium (8.4-10.2) mg/dL Assessment and Plan (1) History of below knee amputation Current Visit: Yes Status: Acute Code(s): Z89.519 - ACQUIRED ABSENCE OF UNSPECIFIED LEG BELOW KNEE SNOMED Code(s): 885714681 (2) Anemia Current Visit: No Status: Acute Code(s): D64.9 - ANEMIA, UNSPECIFIED SNOMED Code(s): 350904281 (3) Atrial fibrillation Current Visit: No Status: Acute Code(s): I48.91 - UNSPECIFIED ATRIAL FIBRILLATION SNOMED Code(s): 25039873 (4) Necrotic toes Current Visit: No Status: Acute Code(s): I96 - GANGRENE, NOT ELSEWHERE CLASSIFIED SNOMED Code(s): 286038591 (5) Readmission after hospitalization within last 30 days Current Visit: No Status: Acute Code(s): KKE2650 - SNOMED Code(s): 426519231 (6) Systolic congestive heart failure Current Visit: No Status: Acute Code(s): I50.20 - UNSPECIFIED SYSTOLIC (CONGESTIVE) HEART FAILURE SNOMED Code(s): 18750467 (7) Type 2 diabetes mellitus with hyperosmolar hyperglycemic state (HHS) Current Visit: No Status: Acute Code(s): E11.00 - TYPE 2 DIAB W HYPROSM W/O NONKET HYPRGLY-HYPROS COMA (NKHHC); E11.65 - TYPE 2 DIABETES MELLITUS WITH HYPERGLYCEMIA SNOMED Code(s): 36359869 Plan: Appropriate postop pulmonary toilet. Anticipate discharge within the next 24-48 hours when cleared by vascular surgery. Watch for appropriate blood sugar control.
[2021-08-12] MEDS: SPIRONOLACTONE 25 MG TAB PO SCH (09:15)
[2021-08-12] MEDS: metOLazone 2.5 MG TAB PO SCH (09:15)
[2021-08-12] MEDS: FUROSEMIDE 40 MG TAB PO SCH (09:15)
[2021-08-12] MEDS: METOPROLOL TARTRATE 12.5 MG TAB PO SCH ×2 (09:15→20:14)
[2021-08-12] MEDS: GABAPENTIN 300 MG CAP PO SCH ×3 (09:15→20:14)
[2021-08-12 11:57] LABS: Glucose,Whole Blood 211 mg/dL (75-99)
[2021-08-12 16:51] LABS: Glucose,Whole Blood 207 mg/dL (75-99)
[2021-08-12] MEDS: LACTATED RINGERS 1,000 ML IV SCH (20:13)
[2021-08-12] MEDS: INSULIN DETEMIR (LEVEMIR) 100 UNIT/ML SYR SQ SCH (20:14)
[2021-08-12] MEDS: CLOTRIMAZOLE 1% CREAM 30 GM TUBE TOPICAL SCH (20:14)
[2021-08-12 20:23] LABS: Glucose,Whole Blood 267 mg/dL (75-99)
[2021-08-13 06:11] LABS: Glucose,Whole Blood 141 mg/dL (75-99)
[2021-08-13] MEDS: PANTOPRAZOLE 40 MG TABLET PO SCH (06:16)
[2021-08-13] MEDS: MIDODRINE 5 MG TAB PO SCH ×2 (06:16→12:51)
[2021-08-13] MEDS: INSULIN ASPART (NovoLOG) 100 UNIT/ML VIAL SQ SCH ×4 (06:17→12:51)
[2021-08-13] MEDS ORDERED: DOCUSATE 100 MG CAP PO PRN (06:25)
[2021-08-13 08:22] VITALS: RESP 18; TEMP 98
[2021-08-13] MEDS: GABAPENTIN 300 MG CAP PO SCH (09:19)
[2021-08-13] MEDS: FUROSEMIDE 40 MG TAB PO SCH (09:19)
[2021-08-13] MEDS: SPIRONOLACTONE 25 MG TAB PO SCH (09:19)
[2021-08-13] MEDS: METOPROLOL TARTRATE 12.5 MG TAB PO SCH (09:19)
[2021-08-13] MEDS: metOLazone 2.5 MG TAB PO SCH (09:19)
--- NOTE | 2021-08-13 10:38 | P.PN ---
Subjective Progress Note Date: 08/13/21 Principal diagnosis: Left foot gangrene, nonhealing wound Patient is seen and examined this a follow-up. She underwent a scheduled left hhhjf-osx-xeot amputation on 08/06/[address] Loyola. She has been doing well, pain is better managed now with gabapentin added. Physical therapy neck patient will therapy has been working with patient. [employer] has seen patient and stump shoeblack is in place. Incision well approximated. She's been afebrile. Plan is for discharge to [facility]. Objective - Vital Signs Vital signs: Vital Signs Temp 98.0 F 08/13/21 08:00 Pulse 59 L 08/13/21 08:00 Resp 18 08/13/21 08:00 BP 138/68 08/13/21 08:00 Pulse Ox 100 08/13/21 08:00 FiO2 Intake & Output 08/12/21 08/13/21 08/13/21 18:59 06:59 18:59 Intake Total 720 240 Output Total 901 450 Balance -181 -210 Intake: Oral 720 240 Output: Urine 901 450 Other: Voiding Method External Catheter # Bowel Movements 1 - Exam General appearance: The patient is alert, oriented, appears in no acute distr ess. HET: Head is normocephalic and atraumatic. Neck: Supple without lymphadenopathy. Trachea midline Heart: S1 S2. Regular rate and rhythm. Lungs: Clear to auscultation bilaterally. Abdomen: Soft, nontender, nondistended. Extremities: Stump shoeblack in place to left BKA stump. Knee immobilizer in place. Neurological: No focal deficits. - Labs CBC & Chem 7: 08/10/21 05:43 08/11/21 09:33 Labs: Abnormal Lab Results - Last 24 Hours (Table) 08/12/21 08/12/21 08/12/21 Range/Units 11:56 16:49 20:02 POC Glucose (mg/dL) 211 H 207 H 267 H (75-99) mg/dL 08/13/21 Range/Units 05:57 POC Glucose (mg/dL) 141 H (75-99) mg/dL Assessment and Plan Assessment: 1. Left foot gangrene status post odzjy-ugz-umor amputation 2. Peripheral arterial disease Plan: 1. Continue physical/occupational therapy 2. Continue with stump shoeblack, dressing changed yesterday with [employer]. They will follow as outpatient. 3. Patient is cleared by vascular surgery for discharge. The impression and plan of care has been dictated as directed. Dr. Loyola I performed a history and examination of this patient, discussed the same with the dictator. I agree with the dictator's note ,documented as a scribe. Any additional findings or plans will be noted.
--- NOTE | 2021-08-13 11:03 | P.DS ---
Providers Date of admission: 08/06/21 05:50 Expected date of discharge: 08/13/21 Attending physician: Last Barrios Consults: 08/06/21 13:32 Consult Physician Routine Consulting Provider: Last Barrios Consult Reason/Comments: medical management Do you want consulting provider notified?: Yes 08/06/21 16:01 Consult Physician Routine Consulting Provider: Last Barrios Consult Reason/Comments: post op amputation, med management, Do you want consulting provider notified?: Yes Primary care physician: Last Barrios Hospital Course: This is a 76-year-old female who has left forefoot gangrene with previous fourth toe amputation and a nonhealing wound as well as peripheral arterial disease. She was scheduled for a left jhknr-xyy-tkjh amputation and underwent procedure on 08/06/[address] Loyola. [facility] has seen patient and changed dressing yesterday. She has a stump edi coordinator in place as well as knee immobilizer. Pain has been well-controlled. She has been afebrile. Plan is for discharge to [facility]. Exam completed and dictated and progress note. 1. Left foot gangrene status post walde-gzv-hkxf amputation 2. Peripheral arterial disease The impression and plan of care has been dictated as directed. Dr. Loyola I performed a history and examination of this patient, discussed the same with the dictator. I agree with the dictator's note ,documented as a scribe. Any additional findings or plans will be noted. Procedures: Left ahrnu-nkw-wfnb amputation Patient Condition at Discharge: Stable Plan - Discharge Summary Discharge Rx Participant: No New Discharge Prescriptions: New Gabapentin [Neurontin] 300 mg PO TID 3 Days #9 cap Continue Metoprolol Tartrate 12.5 mg PO BID Midodrine HCl [ProAmatine] 10 mg PO TID Furosemide [Lasix] 40 mg PO QAM Acetaminophen-Codeine 300-30mg [Tylenol w/codeine #3] 1 tab PO Q8H PRN 3 Days #9 tab PRN Reason: Pain traMADol HCL 50 mg PO Q6H PRN #12 tab PRN Reason: Pain Spironolactone 25 mg PO QAM No Action Pantoprazole [Protonix] 40 mg PO AC-BRKFST #0 tab Insulin Lispro [humaLOG Kwikpen] 4 unit SQ ACHS metOLazone [Zaroxolyn] 2.5 mg PO QAM Insulin Detemir (Levemir) [Levemir] 12 unit SQ HS ml Econazole Nitrate [Econazole Nitrate 1%] 1 applic TOPICAL HS Ondansetron [Zofran] 4 mg PO Q8H PRN PRN Reason: Nausea Discharge Medication List Insulin Detemir (Levemir) [Levemir] 12 unit SQ HS ml 07/02/21 [Rx] Pantoprazole [Protonix] 40 mg PO AC-BRKFST #0 tab 07/02/21 [Rx] Econazole Nitrate [Econazole Nitrate 1%] 1 applic TOPICAL HS 07/21/21 [History] Insulin Lispro [humaLOG Kwikpen] 4 unit SQ ACHS 07/21/21 [History] Metoprolol Tartrate 12.5 mg PO BID 07/21/21 [History] Midodrine HCl [ProAmatine] 10 mg PO TID 07/21/21 [History] Spironolactone 25 mg PO QAM 07/21/21 [History] metOLazone [Zaroxolyn] 2.5 mg PO QAM 07/21/21 [History] Furosemide [Lasix] 40 mg PO QAM 08/05/21 [History] Ondansetron [Zofran] 4 mg PO Q8H PRN 08/05/21 [History] Acetaminophen-Codeine 300-30mg [Tylenol w/codeine #3] 1 tab PO Q8H PRN 3 Days #9 tab 08/13/21 [Rx] Gabapentin [Neurontin] 300 mg PO TID 3 Days #9 cap 08/13/21 [Rx] traMADol HCL 50 mg PO Q6H PRN #12 tab 08/13/21 [Rx] Follow up Appointment(s)/Referral(s): Last Barrios MD [Primary Care Provider] - 3 Days Vianca Loyola DO [STAFF PHYSICIAN] - 1 Week Activity/Diet/Wound Care/Special Instructions: Activity as tolerated with assistance Keep stump edi coordinator in place Change dressing as needed with gabriella Nelson Discharge Disposition: TRANSFER TO SNF/ECF
[2021-08-13 11:36] VITALS: BMI 33.2
[2021-08-13 11:43] LABS: Glucose,Whole Blood 166 mg/dL (75-99)
[2021-08-13 13:31] VITALS: BP 128/73; PULSE 56
== END 2021-08-13 13:24 | DRG 240 ==
LOC: 2ORMAIN 05:50 → 3SCARD 15:04
PROVIDERS: ADMIT Family Medicine; ATTEND Family Medicine
PROC: 0Y6J0Z3 Detachment at Left Lower Leg, Low, Open Approach (ICD-10-PCS; principal; 2021-08-06 07:30)
DX: E11.52 Type 2 diabetes mellitus with diabetic peripheral angiopathy with gangrene (principal); I96 Gangrene, not elsewhere classified; I13.0 Hypertensive heart and chronic kidney disease with heart failure and stage 1 through stage 4 chronic kidney disease, or unspecified chronic kidney disease; I50.22 Chronic systolic (congestive) heart failure; E11.22 Type 2 diabetes mellitus with diabetic chronic kidney disease; E11.42 Type 2 diabetes mellitus with diabetic polyneuropathy; D63.1 Anemia in chronic kidney disease; G54.6 Phantom limb syndrome with pain; E11.00 Type 2 diabetes mellitus with hyperosmolarity without nonketotic hyperglycemic-hyperosmolar coma (NKHHC); I48.0 Paroxysmal atrial fibrillation; N18.30 Chronic kidney disease, stage 3 unspecified; Z79.4 Long term (current) use of insulin; Z89.422 Acquired absence of other left toe(s); I25.10 Atherosclerotic heart disease of native coronary artery without angina pectoris; I25.2 Old myocardial infarction; R26.81 Unsteadiness on feet; M19.90 Unspecified osteoarthritis, unspecified site; Z79.899 Other long term (current) drug therapy; Z87.19 Personal history of other diseases of the digestive system; Z87.01 Personal history of pneumonia (recurrent); Z87.440 Personal history of urinary (tract) infections; Z86.69 Personal history of other diseases of the nervous system and sense organs; Z95.5 Presence of coronary angioplasty implant and graft; Z98.42 Cataract extraction status, left eye; Z98.41 Cataract extraction status, right eye; Z96.1 Presence of intraocular lens; Z87.891 Personal history of nicotine dependence; Z86.74 Personal history of sudden cardiac arrest; Z98.890 Other specified postprocedural states; Z88.1 Allergy status to other antibiotic agents; Z91.040 Latex allergy status; Z88.5 Allergy status to narcotic agent; Z88.0 Allergy status to penicillin; Z88.8 Allergy status to other drugs, medicaments and biological substances; Z91.018 Allergy to other foods; Z83.3 Family history of diabetes mellitus; Z80.1 Family history of malignant neoplasm of trachea, bronchus and lung; Z82.5 Family history of asthma and other chronic lower respiratory diseases
CPT/HCPCS: 80048; 80053; 85025; 85027; 85610; 85730

== ENCOUNTER 2021-08-29 15:53 | Inpatient (IN) | payer MEDICARE, OTHER ==
[2021-08-29 18:22] LABS: INR 1.4 (<1.2); Partial Thromboplastin Time 22.5 sec (22.0-30.0); Prothrombin Time 14.1 sec (9.0-12.0)
[2021-08-29 18:23] LABS: Basophils % (A) 0 %; Eosinophils % (A) 0 %; HCT 32.6 % (34.0-46.0); Hypochromasia Marked; Lymphocytes % (A) 5 %; MCH 28.1 pg (25.0-35.0); MCHC 30.6 g/dL (31.0-37.0); MCV 91.8 fL (80.0-100.0); Mean Platelet Volume 10.4; Monocytes # (A) 0.8 k/uL (0-1.0); Monocytes % (A) 4 %; Neutrophils # (A) 18.4 k/uL (1.3-7.7); Neutrophils % (A) 90 %; Platelet Count 246 k/uL (150-450); RBC 3.55 m/uL (3.80-5.40); RDW 15.4 % (11.5-15.5); WBC 20.5 k/uL (3.8-10.6)
[2021-08-29 18:26] LABS: Albumin 3.7 g/dL (3.5-5.0); Calcium 8.6 mg/dL (8.4-10.2); Magnesium 2.9 mg/dL (1.6-2.3); Potassium 4.4 mmol/L (3.5-5.1); Total Bilirubin 2.1 mg/dL (0.2-1.3); Total Protein 6.9 g/dL (6.3-8.2)
[2021-08-29 18:30] LABS: Appearance,Urine Turbid (Clear); Bacteria,Urine Many /hpf; Bilirubin,Urine Negative (Negative); Blood,Urine Moderate (Negative); Color,Urine Dark Brown; Glucose,Urine (UA) Trace (Negative); Ketones,Urine Negative (Negative); Leukocyte Esterase,Urine Large (Negative); Nitrite,Urine Negative (Negative); PH, Urine 5.5 (5.0-8.0); Protein,Urine 2+ (Negative); RBC,Urine >182 /hpf (0-5); Squamous Epithelial Cell,Urine 14 /hpf (0-4); Urobilinogen,Urine <2.0 mg/dL (<2.0); WBC,Urine >182 /hpf (0-5)
[2021-08-29] MEDS ORDERED: ERTAPENEM 1 GM in SODIUM CHLORIDE 0.9% 50 ML IVPB STA (19:31)
[2021-08-29] MEDS ORDERED: GENTAMICIN PER PHARMACY MISCELLANE SCH (19:45)
--- NOTE | 2021-08-29 20:12 | CT ---
EXAMINATION TYPE: CT abdomen pelvis wo con DATE OF EXAM: 08/29/2021 COMPARISON: None HISTORY: Elevated liver enzymes, kidney failure. CT DLP: 674.3 mGycm Automated exposure control for dose reduction was used. Images obtained from the diaphragm to the floor the pelvis with no contrast. Lung bases are clear. No pleural effusion. Heart size is normal. No pericardial effusion. Liver splee n stomach pancreas appear intact. The bile ducts are not dilated. There is no adrenal mass. Kidneys have normal size. No hydronephrosis. Ureters are not dilated. There is no retroperitoneal adenopathy. There is Loyola catheter in the urinary bladder. Bladder is empty. Uterus is intact. There is significant retained fecal material in the rectum. There is rectal fecal i mpaction that measures 8 cm. There is no mesenteric edema. No ascites or free air. There is small posterior appendix appears ernst l. The lumbar vertebrae have normal alignment. No compression fracture. Bony pelvis appears intact. The hip joints are intact. IMPRESSION: Rectal fecal impaction. No evidence of renal mass or obstruction. No dilated ducts.
--- NOTE | 2021-08-29 20:14 | XR ---
EXAMINATION TYPE: XR chest 2V DATE OF EXAM: 08/29/2021 COMPARISON: 04/01/2021 HISTORY: Cough TECHNIQUE: 2 views FINDINGS: There is no heart failure nor confluent pneumonic infiltrate. Costophrenic angles are clear . There are no hilar masses. Thoracic aorta is atheromatous. IMPRESSION: No active cardiopulmonary disease. There is clearing of the pulmonary edema and pleural f luid compared to old exam.Mild cardiomegaly.
[2021-08-29] MEDS ORDERED: DAPTOmycin 500 MG VIAL IV STA (20:37)
[2021-08-29] MEDS ORDERED: HEPARIN SODIUM 1,000 UN/ML (10ML VL) IV PRN (20:39)
[2021-08-29] MEDS ORDERED: GENTAMICIN IN NACL ISO-OSM PMX 80 MG in SALINE 1 100ML.BAG IVPB STA (20:40)
--- NOTE | 2021-08-29 20:52 | ED ---
General Adult HPI - General Chief complaint: Allergic Reaction Stated complaint: Diabetic Issue Source: patient, EMS Mode of arrival: EMS Limitations: no limitations - History of Present Illness Initial comments: 76-year-old female test with history of A. fib, coronary artery disease, diabetes, chronic any disease who presents emergency department from [facility]. Staff had the patient transported to the emergency department after she was yelling and screaming at the [facility]. She had told staff that she was having chest pain. En route to the hospital the patient states that she lied. States that she was not having chest pain or shortness of breath but wanted to leave the facility because she was not getting any attention. She states she knew if she said she had symptoms that they would send her to the hospital. Patient is angry at the facility has her on Cipro for a urinary tract infection. She states that she is ALLERGIC to Cipro. 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 Denies redness, swelling to her amputation site. Patient denies any current chest pain or shortness of breath. No fevers, chills or cough. Denies any abdominal pain. Patient reports to feeling completely symptomatically at this time. We did speak to the patient's daughter. Request Dr. Nesbitt as physician and states it has not been eating or drinking much this past week - Related Data Home Medications Medication Instructions Recorded Confirmed Metoprolol Tartrate 12.5 mg PO BID 07/21/21 08/29/21 Midodrine HCl [ProAmatine] 10 mg PO TID 07/21/21 08/29/21 Spironolactone 25 mg PO DAILY 07/21/21 08/29/21 metOLazone [Zaroxolyn] 2.5 mg PO DAILY 07/21/21 08/29/21 Furosemide [Lasix] 40 mg PO DAILY 08/05/21 08/29/21 Acetaminophen [Tylenol 8 Hour] 650 mg PO Q6H PRN 08/29/21 08/29/21 Ciprofloxacin HCl [Cipro] 250 mg PO HS 08/29/21 08/29/21 Insulin Aspart [Insulin Aspart 4 unit SQ ACHS 08/29/21 08/29/21 Flexpen] Insulin Detemir [Levemir Flextouch 12 units SQ HS 08/29/21 08/29/21 Pen] Allergies Allergy/AdvReac Type Severity Reaction Status Date / Time Corticosteroids Allergy Unknown Unknown Verified 08/29/21 16:23 (Glucocorticoids) azithromycin [From Zithromax] Allergy Anaphylaxis Verified 08/29/21 16:23 banana Allergy Unknown Verified 08/29/21 16:23 carisoprodol [From Soma] Allergy Unknown Verified 08/29/21 16:23 ciprofloxacin [From Cipro] Allergy Unknown Verified 08/29/21 16:23 cortisone [Cortisone] Allergy Unknown Verified 08/29/21 16:23 cyclobenzaprine HCl Allergy Unknown Verified 08/29/21 16:23 [From Flexeril] latex Allergy Rash/Hives Verified 08/29/21 16:23 Latex, Natural Rubber Allergy Rash/Hives Verified 08/29/21 16:23 levofloxacin [From Levaquin] Allergy Anaphylaxis Verified 08/29/21 16:23 Penicillins Allergy Anaphylaxis Verified 08/29/21 16:23 codeine AdvReac Nausea & Verified 08/29/21 16:23 Vomiting Review of Systems ROS Statement: Those systems with pertinent positive or pertinent negative responses have been documented in the HPI. ROS Other: All systems not noted in ROS Statement are negative. Past Medical History Past Medical History: Atrial Fibrillation, Coronary Artery Disease (CAD), Chest Pain / Angina, Heart Failure, Diabetes Mellitus, Eye Disorder, Hypertension, Myocardial Infarction (PR), Osteoarthritis (OA), Pneumonia, Renal Disease, Vascular Disorder Additional Past Medical History / Comment(s): LEFT FOOT HAS BECOME GANGEROUS PER PATIENT. Pt recently admitted to [facility] on 06/16/21 with L foot cellulitis/L 4th toe amp and had peripheral vascular procedures with post hematoma and acute blood loss anemia. Other hx: NIDDM type II, neuropathy bilateral feet, 01-03-14 PR/cardiac arrest/resp failure/intubation, CKD, chronic anemia, mild thrombocytopenia, PAD, UTIs, unsteady gait, FALLS, past L eye retinal bleed with surgery. Last Myocardial Infarction Date:: 01-03-14 History of Any Multi-Drug Resistant Organisms: None Reported Past Surgical History: Heart Catheterization, Heart Catheterization With Stent Additional Past Surgical History / Comment(s): 06/18/21 L 4th toe amputation, 06/2021 L fempop angiogram/L SFA atherectomy/PTBA, stent RCA 01-07-14, stent LAD 02/14/2019, L retinal bleed with surgery, bilateral cataract removal/lens implants, colonoscopy, LT BKA Past Anesthesia/Blood Transfusion Reactions: No Reported Reaction Date of Last Stent Placement:: 2018 Past Psychological History: No Psychological Hx Reported Smoking Status: Former smoker Past Alcohol Use History: None Reported Past Drug Use History: None Reported - Past Family History Father Family Medical History: Cancer, Diabetes Mellitus Additional Family Medical History / Comment(s): age 70 from lung cancer Mother Family Medical History: COPD Additional Family Medical History / Comment(s): age 83 emphysema General Exam Limitations: no limitations Course Vital Signs 08/29/21 08/29/21 16:04 22:19 Temperature 97.2 F L 96.9 F L Pulse Rate 71 74 Respiratory 16 16 Rate Blood Pressure 122/51 120/53 O2 Sat by Pulse 99 100 Oximetry - Reevaluation(s) Reevaluation #1: 08/29/21 21:[address] Amezcua - aware of patient in the ED - refuses ICU admission. Pt will be admitted to [address] [place] [address] EKG Findings - EKG Comments: EKG Findings:: EKG demonstrates sinus rhythm with a rate of 71. CO interval 193. QRS 162. QTC 481. ST elevation aVR. Left bundle branch block present which does not meet Scarbossa criteria. Deep inverted T waves with ST depression 1, 2, 3, aVF as well as V4 through V6. Morphology is similar to patient's previous EKG Medical Decision Making - Medical Decision Making Upon arrival patient is placed into room 16. Thorough history and physical exam was performed. IV access was established laboratory studies were conducted. Patient does have multiple lab abnormalities including white blood cell count of 20.5. Sodium 132. BUN 193. Creatinine 3.25. AST 1230. ALTs for 24. Troponin 8.8. EKG shows left bundle branch block with similar morphology. Patient asymptomatic at this time. Patient has [place] catheter in place draining opaque, weight urine. Urinalysis does demonstrate many bacteria. I called and spoke with Dr. Dhillon in regards patient's symptoms. Patient will be placed on heparin at this time due to elevated troponin. Additionally placed on Cubicin per Dr. Parrish suggestion. We'll consult nephrology, cardiology and infectious disease. I spoke with Dr. Amezcua as Dr. Nesbitt requested ICU admission. Dr. Amezcua refuses ICU admission. Patient will be admitted to [address] [place] [address]. - Lab Data Result diagrams: 08/29/21 16:24 08/29/21 16:24 Lab Results 08/29/21 08/29/21 08/29/21 Range/Units 16:24 16:24 16:24 WBC 20.5 H (3.8-10.6) k/uL RBC 3.55 L (3.80-5.40) m/uL Hgb 10.0 L (11.4-16.0) gm/dL Hct 32.6 L (34.0-46.0) % MCV 91.8 (80.0-100.0) fL MCH 28.1 (25.0-35.0) pg MCHC 30.6 L (31.0-37.0) g/dL RDW 15.4 (11.5-15.5) % Plt Count 246 (150-450) k/uL MPV 10.4 Neutrophils % 90 % Lymphocytes % 5 % Monocytes % 4 % Eosinophils % 0 % Basophils % 0 % Neutrophils # 18.4 H (1.3-7.7) k/uL Lymphocytes # 1.0 (1.0-4.8) k/uL Monocytes # 0.8 (0-1.0) k/uL Eosinophils # 0.0 (0-0.7) k/uL Basophils # 0.0 (0-0.2) k/uL Hypochromasia Marked PT 14.1 H (9.0-12.0) sec INR 1.4 H (<1.2) APTT 22.5 (22.0-30.0) sec Sodium (137-145) mmol/L Potassium (3.5-5.1) mmol/L Chloride (98-107) mmol/L Carbon Dioxide (22-30) mmol/L Anion Gap mmol/L BUN (7-17) mg/dL Creatinine (0.52-1.04) mg/dL Est GFR (CKD-EPI)AfAm (>60 ml/min/1.73 sqM) Est GFR (CKD-EPI)NonAf (>60 ml/min/1.73 sqM) Glucose (74-99) mg/dL Calcium (8.4-10.2) mg/dL Magnesium (1.6-2.3) mg/dL Total Bilirubin (0.2-1.3) mg/dL AST (14-36) U/L ALT (4-34) U/L Alkaline Phosphatase (38-126) U/L Troponin I (0.000-0.034) ng/mL Total Protein (6.3-8.2) g/dL Albumin (3.5-5.0) g/dL Urine Color Dark Brown Urine Appearance Turbid H (Clear) Urine pH 5.5 (5.0-8.0) Ur Specific [place] 1.020 (1.001-1.035) Urine Protein 2+ H (Negative) Urine Glucose (UA) Trace H (Negative) Urine Ketones Negative (Negative) Urine Blood Moderate H (Negative) Urine Nitrite Negative (Negative) Urine Bilirubin Negative (Negative) Urine Urobilinogen <2.0 (<2.0) mg/dL Ur Leukocyte Esterase Large H (Negative) Urine RBC >182 H (0-5) /hpf Urine WBC >182 H (0-5) /hpf Urine WBC Clumps Many H (None) /hpf Ur Squamous Epith Cells 14 H (0-4) /hpf Urine Bacteria Many H (None) /hpf 08/29/21 08/29/21 Range/Units 16:24 16:24 WBC (3.8-10.6) k/uL RBC (3.80-5.40) m/uL Hgb (11.4-16.0) gm/dL Hct (34.0-46.0) % MCV (80.0-100.0) fL MCH (25.0-35.0) pg MCHC (31.0-37.0) g/dL RDW (11.5-15.5) % Plt Count (150-450) k/uL MPV Neutrophils % % Lymphocytes % % Monocytes % % Eosinophils % % Basophils % % Neutrophils # (1.3-7.7) k/uL Lymphocytes # (1.0-4.8) k/uL Monocytes # (0-1.0) k/uL Eosinophils # (0-0.7) k/uL Basophils # (0-0.2) k/uL Hypochromasia PT (9.0-12.0) sec INR (<1.2) APTT (22.0-30.0) sec Sodium 132 L (137-145) mmol/L Potassium 4.4 (3.5-5.1) mmol/L Chloride 93 L (98-107) mmol/L Carbon Dioxide 18 L (22-30) mmol/L Anion Gap 21 mmol/L BUN 93 H (7-17) mg/dL Creatinine 3.25 H (0.52-1.04) mg/dL Est GFR (CKD-EPI)AfAm 15 (>60 ml/min/1.73 sqM) Est GFR (CKD-EPI)NonAf 13 (>60 ml/min/1.73 sqM) Glucose 236 H (74-99) mg/dL Calcium 8.6 (8.4-10.2) mg/dL Magnesium 2.9 H (1.6-2.3) mg/dL Total Bilirubin 2.1 H (0.2-1.3) mg/dL AST 1230 H (14-36) U/L ALT 424 H (4-34) U/L Alkaline Phosphatase 104 (38-126) U/L Troponin I 8.820 H* (0.000-0.034) ng/mL Total Protein 6.9 (6.3-8.2) g/dL Albumin 3.7 (3.5-5.0) g/dL Urine Color Urine Appearance (Clear) Urine pH (5.0-8.0) Ur Specific [place] (1.001-1.035) Urine Protein (Negative) Urine Glucose (UA) (Negative) Urine Ketones (Negative) Urine Blood (Negative) Urine Nitrite (Negative) Urine Bilirubin (Negative) Urine Urobilinogen (<2.0) mg/dL Ur Leukocyte Esterase (Negative) Urine RBC (0-5) /hpf Urine WBC (0-5) /hpf Urine WBC Clumps (None) /hpf Ur Squamous Epith Cells (0-4) /hpf Urine Bacteria (None) /hpf Disposition Clinical Impression: NSTEMI (non-ST elevated myocardial infarction), Acute on chronic renal failure, UTI (urinary tract infection) Disposition: ADMITTED IP TO THIS [facility] Condition: Serious Is patient prescribed a controlled substance at d/c from ED?: No Time of Disposition: 20:51 Decision to Admit Reason: Admit from EC Decision Date: 08/29/21 Decision Time: 20:52
[2021-08-29] MEDS ORDERED: SODIUM CHLORIDE 0.9% IVPB ONE (21:00)
[2021-08-29] MEDS ORDERED: DAPTOMYCIN IVPB ONE (21:00)
[2021-08-29] MEDS ORDERED: NALOXONE 0.4 MG/ML 1 ML VIAL IV PRN (21:16)
[2021-08-29] MEDS: HEPARIN SOD,PORK IN 0.45% NACL 25,000 UNIT in 0.45% NACL 1 250ML.BAG IV SCH (22:13)
[2021-08-29 23:33] LABS: Glucose,Whole Blood 277 mg/dL (70-110)
[2021-08-30] MEDS: INSULIN ASPART (NovoLOG) 100 UNIT/ML VIAL SQ SCH ×9 (01:13→20:52)
[2021-08-30] MEDS: INSULIN DETEMIR (LEVEMIR) 100 UNIT/ML SYR SQ SCH ×2 (01:15→20:51)
[2021-08-30] MEDS: SODIUM CHLORIDE 0.9% 1,000 ML IV SCH ×3 (01:16→23:27)
[2021-08-30] MEDS ORDERED: ASPIRIN 81 MG PO STA (02:02)
[2021-08-30] MEDS ORDERED: METOPROLOL TARTRATE 12.5 MG TAB PO STA (02:03)
[2021-08-30 04:31] LABS: INR 1.5 (<1.2); Partial Thromboplastin Time 32.2 sec (22.0-30.0)
[2021-08-30 04:37] LABS: Calcium 8.1 mg/dL (8.4-10.2); Potassium 3.6 mmol/L (3.5-5.1)
[2021-08-30 04:38] LABS: Basophils # (A) 0.1 k/uL (0-0.2); Basophils % (A) 0 %; Eosinophils % (A) 0 %; HCT 28.7 % (34.0-46.0); HGB 9.1 gm/dL (11.4-16.0); Hypochromasia Marked; Lymphocytes # (A) 1.8 k/uL (1.0-4.8); Lymphocytes % (A) 9 %; MCH 29.1 pg (25.0-35.0); MCHC 31.8 g/dL (31.0-37.0); MCV 91.4 fL (80.0-100.0); Mean Platelet Volume 10.2; Monocytes # (A) 0.7 k/uL (0-1.0); Monocytes % (A) 4 %; Neutrophils # (A) 16.5 k/uL (1.3-7.7); Neutrophils % (A) 85 %; Platelet Count 217 k/uL (150-450); RBC 3.14 m/uL (3.80-5.40); RDW 15.4 % (11.5-15.5); WBC 19.5 k/uL (3.8-10.6)
[2021-08-30 06:06] LABS: Glucose,Whole Blood 196 mg/dL (70-110)
[2021-08-30] MEDS: MIDODRINE 5 MG TAB PO SCH ×3 (09:28→20:50)
[2021-08-30] MEDS: METOPROLOL TARTRATE 12.5 MG TAB PO SCH ×2 (09:28→20:50)
[2021-08-30] MEDS: ASPIRIN 81 MG PO SCH (09:28)
--- NOTE | 2021-08-30 10:44 | P.HPIM ---
History of Present Illness H&P Date: 08/30/21 Chief Complaint: Non-ST elevation PR, acute kidney injury on top of chronic kidney disease4 HISTORY OF PRESENT ILLNESS: This is a 76-year-old female with a previous medical history significant for coronary artery disease status post PCI of the RCA back in 2013 LAD in 2019, history of peripheral vascular occlusive disease status post left foot gangrene and prior left fourth toe amputation followed by a left below-knee amputation that was done by Dr. Loyola recently, history of diabetes mellitus type 2 diabetic polyneuropathy, history of hypertension and hypertensive cardiovascular disease, hyperlipidemia, paroxysmal atrial fibrillation, history of chronic kidney disease stage for her GFR was around 23 has been under the care of nephrology, history of anemia of chronic kidney disease, history of medical debility, with other chronic medical issues patient was recently hospitalized at the [facility] after she developed to have a significant gangrenous changes of the left foot and she underwent left below-knee amputation that was done by Dr. Loyola and the patient was sent to [facility] developed to have a significant urinary retention requiring Loyola catheterization and at that time she was diagnosed with a Klebsiella pneumonia UTI as well as E. coli UTI however the patient has numerous ALLERGIES and she was placed on ciprofloxacin because ran out of options for her 250 mg orally twice every day patient did receive either 1 or 2 doses of that medicatio, patient yesterday developed to have a significant left sided chest pain a ssociated with increased shortness of breath, she was screaming in her room yelling for help, nursing staff contacted me and I refer the patient go to the emergency department at [facility] she was found to have a troponin of 8 she was found to have an acute kidney injury and top of chronic kidney disease with severe leukocytosis with a white count of 20,000, and significant urinary tract infection she was started on Cubicin she was given 1 dose of 480 mg and that switch to 300 mg IV piggyback every 48 hours due to the creatinine clearance, the patient was admitted to the hospital with heparin drip on board, nephrology consultation, cardiology consultation, ID consultation, patient also was noticed to have a bloody blister to the medial aspect of her left inner knee, she also does appear to have a a a dry gangrenous changes to the right big toe. REVIEW OF SYSTEMS: Constitutional: No documented fever, no chills, no night sweats. No weight change. positive for weakness, fatigue or lethargy. No daytime sleepiness. HEENT: No headache. positive for blurred vision or double vision, no loss of vision. No loss of Hearing, no ringing in the ears, no dizziness. No nasal drainage or congestion. No epistaxis. No sore throat. Lungs: positive for shortness of breath, no cough, no sputum production. No wheezing. Reports dyspnea with activity. Cardiovascular: positive for chest pain, no lower extremity edema. No palpitations. No paroxysmal nocturnal dyspnea. No orthopnea. No lightheadedness or dizziness. No syncopal episodes. Abdominal: Reports no abdominal pain. No nausea, vomiting. No diarrhea. No constipation. No bloody or tarry stools reports loss of appetite. Genitourinary: positive for dysuria, increased frequency,does have Loyola catheter in place due to urinary retention Musculoskeletal: No myalgias. positive for muscle weakness, positive for gait dysfunction, no frequent falls. No back pain. No neck pain. Integumentary: S/P left BKA and there is bloody blister on the inner left knee, also there is dry gangrenous changes to the right big toe Neurologic: No aphasia. No facial droop. No change in mentation. No head injury. No headache. No paralysis. Psychiatric: No depression. No anxiety. No mood swings. Endocrine: abnormal blood sugars. No weight change. PAST MEDICAL HISTORY: CAD post-PCI of the RCA in 2013 and LAD 2019. Hypertension and hypertensive cardio vascular disease. Hyperlipidemia Diabetes mellitus type 2 with diabetic polyneuropathy. chronic kidney disease stage IV Anemia of chronic kidney disease. Paroxysmal atrial fibrillation. GI bleed. Peripheral vascular disease. PAST SURGICAL HISTORY: Bilateral Cataract surgeries. Left BKA Left 4th toe amputation. SFA atherectomy with PTBA Left heart catherization with PCI in RCA 2013 and LAD 2019 Left Retinal bleed Colonoscopy SOCIAL HISTORY: Patient used to smoke about half a pack every day she started smoking when she was 27 and she quit i 2002, she denies any alcohol ingestion, no drug use or abuse. FAMILY HISTORY: father at age 70 from lung cancer and he is to be a smoker, mother at age of 83 from of eczema, patient had 2 brothers one of them at the age of 63 from autoimmune disease. Father is still alive, patient has no sisters she has 3 daughters and 1 son no major medical problems. PHYSICAL EXAMINATION: General: 76-year-old female laying down in bed in no distress. HEENT: Head is atraumatic, normocephalic, pupils were equal round reactive to light and recommendation, extraocular muscle movement were intact, sclera nonicteric, conjunctivae were pale, mucous membranes of the mouth are somewhat dry. Neck: Supple, no JVP, decreased carotid upstroke bilaterally, no lymphadenopathy. Chest: Decreased breath sounds at the bases, few rhonchi, no expiratory wheezes, no chest wall tenderness, no intercostal retractions. Heart: First heart sound is normal, second heart sounds normal there is systolic ejection murmur 2/6. Sternal border. Abdomen: Soft, nontender, nondistended, positive bowel sounds. Extremities: There is left below-knee amputation, wound appears to be healing well approximated very well, there is a small bloody blister to the medial aspect of the left knee, right foot decreased pulses with right big toe dry gangrene. Neurologic examination: Patient is awake alert and oriented X3 , cranial nerves II-12 appear grossly intact, muscle power were 4 out of 5 in upper extremities and 3 out of 5 in bilateral lower extremities, deep tendon reflexes normal bilaterally. ASSESSMENT AND PLAN: 1. Acute non-ST elevation PR. Continue patient on heparin drip, continue patient on aspirin 81 mg once every day, continue metoprolol 12.5 mg orally twice every day, consider adding atorvastatin 40 mg once every day. Continue ALLERGY consultation for further evaluation and recommendation. Her second troponin went up to 21. 2. Acute kidney injury and top of chronic kidney disease stage IV. Likely related to acute tubular necrosis and decreased effective blood flow to the kidneys. Start the patient on IV fluid resuscitation the form of normal saline 75 mL an hour, consult nephrology, patient has stated that she does not want to go on hemodialysis. 3. Severe leukocytosis secondary to urinary tract infection with SIRS.. Continue IV fluid resuscitation, continue IV antibiotic in the form of daptomycin swish the dose to 300 mg IV piggyback every 48 hours due to creatinine clearance. His consultation Dr. Oswald. 4. Hypertension and hypertensive cardiovascular disease. Continue patient on Lopressor 12.5 g orally twice every day. 5. Anemia of chronic kidney disease. Monitor the patient's CBC very closely 6. Diabetes mellitus type 2 with diabetic polyneuropathy. Continue patient on Levemir as well as slight scale insulin. 7. Hyperlipidemia. Start the patient on atorvastatin 40 mg orally once every day. 8. Peripheral vascular disease status post left below-knee amputation. Stable at this time. 9. Right big toe dry gangrene. Wound care consult. 10. Elevated liver function tests likely related to surgeries and possible shock liver we'll repeat CMP in the next 24 hours. 11. Recent Klebsiella pneumoniae UTI/E. coli UTI did receive couple doses of c iprofloxacin. 12. DVT prophylaxis. Currently on heparin drip. 13. GI process. Continue patient on PPI. 14. Admitted to inpatient. Estimate length of stay 2 midnights. 15. Patient is DO NOT INTUBATE. Past Medical History Past Medical History: Atrial Fibrillation, Coronary Artery Disease (CAD), Chest Pain / Angina, Heart Failure, Diabetes Mellitus, Eye Disorder, Hypertension, Myocardial Infarction (PR), Osteoarthritis (OA), Pneumonia, Renal Disease, Vascular Disorder Additional Past Medical History / Comment(s): LEFT FOOT HAS BECOME GANGEROUS PER PATIENT. Pt recently admitted to [facility] on 06/16/21 with L foot cellulitis/L 4th toe amp and had peripheral vascular procedures with post hematoma and acute blood loss anemia. Other hx: NIDDM type II, neuropathy bilateral feet, 01-03-14 PR/cardiac arrest/resp failure/intubation, CKD, chronic anemia, mild thrombocytopenia, PAD, UTIs, unsteady gait, FALLS, past L eye retinal bleed with surgery. Last Myocardial Infarction Date:: 01-03-14 History of Any Multi-Drug Resistant Organisms: None Reported Past Surgical History: Heart Catheterization, Heart Catheterization With Stent Additional Past Surgical History / Comment(s): 06/18/21 L 4th toe amputation, 06/2021 L fempop angiogram/L SFA atherectomy/PTBA, stent RCA 01-07-14, stent LAD 02/14/2019, L retinal bleed with surgery, bilateral cataract removal/lens implants, colonoscopy, LT BKA Past Anesthesia/Blood Transfusion Reactions: No Reported Reaction Date of Last Stent Placement:: 2018 Past Psychological History: No Psychological Hx Reported Additional Psychological History / Comment(s): . Smoking Status: Former smoker Past Alcohol Use History: None Reported Additional Past Alcohol Use History / Comment(s): started smoking at age 27, smoked 1/2 ppd quit 2002 Past Drug Use History: None Reported - Past Family History Father Family Medical History: Cancer, Diabetes Mellitus Additional Family Medical History / Comment(s): age 70 from lung cancer Mother Family Medical History: COPD Additional Family Medical History / Comment(s): age 83 emphysema Medications and Allergies Home Medications Medication Instructions Recorded Confirmed Type Metoprolol Tartrate 12.5 mg PO BID 07/21/21 08/29/21 History Midodrine HCl [ProAmatine] 10 mg PO TID 07/21/21 08/29/21 History Spironolactone 25 mg PO DAILY 07/21/21 08/29/21 History metOLazone [Zaroxolyn] 2.5 mg PO DAILY 07/21/21 08/29/21 History Furosemide [Lasix] 40 mg PO DAILY 08/05/21 08/29/21 History Acetaminophen [Tylenol 8 Hour] 650 mg PO Q6H PRN 08/29/21 08/29/21 History Ciprofloxacin HCl [Cipro] 250 mg PO HS 08/29/21 08/29/21 History Insulin Aspart [Insulin Aspart 4 unit SQ [facility] 08/29/21 08/29/21 History Flexpen] Insulin Detemir [Levemir Flextouch 12 units SQ HS 08/29/21 08/29/21 History Pen] Allergies Allergy/AdvReac Type Severity Reaction Status Date / Time Corticosteroids Allergy Unknown Unknown Verified 08/29/21 16:23 (Glucocorticoids) azithromycin [From Zithromax] Allergy Anaphylaxis Verified 08/29/21 16:23 banana Allergy Unknown Verified 08/29/21 16:23 carisoprodol [From Soma] Allergy Unknown Verified 08/29/21 16:23 ciprofloxacin [From Cipro] Allergy Unknown Verified 08/29/21 16:23 cortisone [Cortisone] Allergy Unknown Verified 08/29/21 16:23 cyclobenzaprine HCl Allergy Unknown Verified 08/29/21 16:23 [From Flexeril] latex Allergy Rash/Hives Verified 08/29/21 16:23 Latex, Natural Rubber Allergy Rash/Hives Verified 08/29/21 16:23 levofloxacin [From Levaquin] Allergy Anaphylaxis Verified 08/29/21 16:23 Penicillins Allergy Anaphylaxis Verified 08/29/21 16:23 codeine AdvReac Nausea & Verified 08/29/21 16:23 Vomiting Physical Exam Vitals: Vital Signs Temp Pulse Pulse Resp BP BP Pulse Ox 08/30/21 03:56 97.5 F L 62 16 100/58 99 08/30/21 01:00 70 18 118/58 100 08/30/21 00:44 97.6 F 70 16 109/52 100 08/29/21 22:19 96.9 F L 74 16 120/53 100 08/29/21 16:04 97.2 F L 71 16 122/51 99 Intake and Output 08/29/21 08/30/21 08/30/21 22:59 06:59 14:59 Intake Total 56.899 Output Total 300 Balance -243.101 Intake: Intake, IV Titration 56.899 Amount Heparin Sod,Pork in 0.45% 56.899 NaCl 25,000 unit In 0.45 % NaCl 1 250ml.bag @ 12 UNITS/KG/HR 8.709 mls/hr IV .Q24H [facility] Rx#: [id number] Output: Urine 300 Other: Voiding Method Indwelling Catheter Weight 72.575 kg 75 kg Results CBC & Chem 7: 08/30/21 03:48 08/30/21 03:48 Labs: Abnormal Lab Results - Last 24 Hours (Table) 08/29/21 08/29/21 08/29/21 Range/Units 16:24 16:24 16:24 WBC 20.5 H (3.8-10.6) k/uL RBC 3.55 L (3.80-5.40) m/uL Hgb 10.0 L (11.4-16.0) gm/dL Hct 32.6 L (34.0-46.0) % MCHC 30.6 L (31.0-37.0) g/dL Neutrophils # 18.4 H (1.3-7.7) k/uL PT 14.1 H (9.0-12.0) sec INR 1.4 H (<1.2) APTT (22.0-30.0) sec Sodium (137-145) mmol/L Chloride (98-107) mmol/L Carbon Dioxide (22-30) mmol/L BUN (7-17) mg/dL Creatinine (0.52-1.04) mg/dL Glucose (74-99) mg/dL POC Glucose (mg/dL) (70-110) mg/dL Calcium (8.4-10.2) mg/dL Magnesium (1.6-2.3) mg/dL Total Bilirubin (0.2-1.3) mg/dL AST (14-36) U/L ALT (4-34) U/L Troponin I (0.000-0.034) ng/mL Urine Appearance Turbid H (Clear) Urine Protein 2+ H (Negative) Urine Glucose (UA) Trace H (Negative) Urine Blood Moderate H (Negative) Ur Leukocyte Esterase Large H (Negative) Urine RBC >182 H (0-5) /hpf Urine WBC >182 H (0-5) /hpf Urine WBC Clumps Many H (None) /hpf Ur Squamous Epith Cells 14 H (0-4) /hpf Urine Bacteria Many H (None) /hpf 08/29/21 08/29/21 08/29/21 Range/Units 16:24 16:24 23:31 WBC (3.8-10.6) k/uL RBC (3.80-5.40) m/uL Hgb (11.4-16.0) gm/dL Hct (34.0-46.0) % MCHC (31.0-37.0) g/dL Neutrophils # (1.3-7.7) k/uL PT (9.0-12.0) sec INR (<1.2) APTT (22.0-30.0) sec Sodium 132 L (137-145) mmol/L Chloride 93 L (98-107) mmol/L Carbon Dioxide 18 L (22-30) mmol/L BUN 93 H (7-17) mg/dL Creatinine 3.25 H (0.52-1.04) mg/dL Glucose 236 H (74-99) mg/dL POC Glucose (mg/dL) 277 H (70-110) mg/dL Calcium (8.4-10.2) mg/dL Magnesium 2.9 H (1.6-2.3) mg/dL Total Bilirubin 2.1 H (0.2-1.3) mg/dL AST 1230 H (14-36) U/L ALT 424 H (4-34) U/L Troponin I 8.820 H* (0.000-0.034) ng/mL Urine Appearance (Clear) Urine Protein (Negative) Urine Glucose (UA) (Negative) Urine Blood (Negative) Ur Leukocyte Esterase (Negative) Urine RBC (0-5) /hpf Urine WBC (0-5) /hpf Urine WBC Clumps (None) /hpf Ur Squamous Epith Cells (0-4) /hpf Urine Bacteria (None) /hpf 08/30/21 08/30/21 08/30/21 Range/Units 00:13 03:48 03:48 WBC 19.5 H (3.8-10.6) k/uL RBC 3.14 L (3.80-5.40) m/uL Hgb 9.1 L (11.4-16.0) gm/dL Hct 28.7 L (34.0-46.0) % MCHC (31.0-37.0) g/dL Neutrophils # 16.5 H (1.3-7.7) k/uL PT (9.0-12.0) sec INR (<1.2) APTT (22.0-30.0) sec Sodium 130 L (137-145) mmol/L Chloride 96 L (98-107) mmol/L Carbon Dioxide 19 L (22-30) mmol/L BUN 97 H (7-17) mg/dL Creatinine 2.92 H (0.52-1.04) mg/dL Glucose 210 H (74-99) mg/dL POC Glucose (mg/dL) (70-110) mg/dL Calcium 8.1 L (8.4-10.2) mg/dL Magnesium (1.6-2.3) mg/dL Total Bilirubin (0.2-1.3) mg/dL AST (14-36) U/L ALT (4-34) U/L Troponin I 24.400 H* (0.000-0.034) ng/mL Urine Appearance (Clear) Urine Protein (Negative) Urine Glucose (UA) (Negative) Urine Blood (Negative) Ur Leukocyte Esterase (Negative) Urine RBC (0-5) /hpf Urine WBC (0-5) /hpf Urine WBC Clumps (None) /hpf Ur Squamous Epith Cells (0-4) /hpf Urine Bacteria (None) /hpf 08/30/21 08/30/21 08/30/21 Range/Units 03:48 03:48 06:05 WBC (3.8-10.6) k/uL RBC (3.80-5.40) m/uL Hgb (11.4-16.0) gm/dL Hct (34.0-46.0) % MCHC (31.0-37.0) g/dL Neutrophils # (1.3-7.7) k/uL PT 15.0 H (9.0-12.0) sec INR 1.5 H (<1.2) APTT 32.2 H (22.0-30.0) sec Sodium (137-145) mmol/L Chloride (98-107) mmol/L Carbon Dioxide (22-30) mmol/L BUN (7-17) mg/dL Creatinine (0.52-1.04) mg/dL Glucose (74-99) mg/dL POC Glucose (mg/dL) 196 H (70-110) mg/dL Calcium (8.4-10.2) mg/dL Magnesium (1.6-2.3) mg/dL Total Bilirubin (0.2-1.3) mg/dL AST (14-36) U/L ALT (4-34) U/L Troponin I 21.300 H* (0.000-0.034) ng/mL Urine Appearance (Clear) Urine Protein (Negative) Urine Glucose (UA) (Negative) Urine Blood (Negative) Ur Leukocyte Esterase (Negative) Urine RBC (0-5) /hpf Urine WBC (0-5) /hpf Urine WBC Clumps (None) /hpf Ur Squamous Epith Cells (0-4) /hpf Urine Bacteria (None) /hpf Microbiology - Last 24 Hours (Table) 08/29/21 16:24 Urine Culture - Preliminary Urine,Voided Thrombosis Risk Factor Assmnt - Choose All That Apply Any of the Below Risk Factors Present?: Yes Each Factor Represents 1 point: Medical pt on bed rest, Obesity (BMI >25) Other Risk Factors: Yes Each Risk Factor Represents 3 Points: Age 75 years or older Thrombosis Risk Factor Assessment Total Risk Factor Score: 5 Thrombosis Risk Factor Assessment Level: High Risk
--- NOTE | 2021-08-30 11:08 | P.CRDCN ---
History of Present Illness History of present illness: 76-year-old lady with history of paroxysmal atrial fibrillation GI bleed coronary artery disease status post prior multivessel angioplasty diabetes hypertension dyslipidemia and congestive heart failure underwent left below knee amputation last month and is currently recuperating in a [facility]. She complained of chest discomfort and shortness of breath and subsequently was transferred to [facility] where she got admitted. She denies any further episodes of chest pain and she is not short of breath. She has had orthostatic hypotension and was admitted to drain for the same. She has chronic renal failure and there is acute worsening of the same this time. Her BUN/creatinine is in the 90s and creatinine is 2.5. Her cardiac catheterization in February 2019 revealed an 80% stenosis involving mid LAD for which she underwent stent and she already had a stent in the right coronary artery that was patent. Patient's troponin is come back elevated and it is around 25. She is not in overt heart failure and she is not having chest pain. EKG shows sinus rhythm with left bundle branch block and extensive ST-T wave changes similar to the EKG that she had in the past. Patient is not keen on going through any invasive procedures. I'm going to wait until her renal functions improved and she is clinically better before we do anything else. We will manage have myocardial infarction with optimal medical therapy. She is on IV heparin which I am going to continue for another 48 hours continue the beta chely and the nitrates that she is on. Patient had been intolerant of statins. Review of systems: 14 out of 14 review of systems has been performed. Pertinent set as documented General: The patient is awake and alert, in no distress, and does not appear acutely ill. Skin: Skin is warm and dry and no rashes or lesions are noted. Eye: Pupils are equal, round and reactive to light, extra-ocular movements are intact; there is normal conjunctiva bilaterally. Ears, nose, mouth and throat: There are moist mucous membranes and no oral lesions. Neck: The neck is supple, there is no tenderness or JVD. Cardiovascular: There is a regular rate and rhythm. No murmur, rub or gallop is appreciated. Respiratory: Lungs are clear to auscultation, respirations are non-labored, breath sounds are equal. Gastrointestinal: Soft, non-distended, non-tender abdomen without masses or organomegaly noted. There is no rebound or guarding present. Bowel sounds are unremarkable. Back: There is no tenderness to palpation in the midline. There is no obvious deformity. Musculoskeletal: Normal ROM, no tenderness, There is no pedal edema. There is no calf tenderness or swelling. Extremities: No edema. Status post left below-knee amputation mild edema over the right leg with diminished pulses Vascular: Femoral pulse is normal. Posterior tibial pulses are normal .Dorsalis pedis is palpable. Neurological: CN II-XII intact. There are no obvious motor or sensory deficits. Speech is normal. Psychiatric: Cooperative, appropriate mood & affect, normal judgment. Labs: White cell count is elevated at 19 hemoglobin is 9.1 INR is 1.5 potassium is 3.6 be U and is 97 creatinine is 3 Assessment and plan: Acute non-ST segment elevation TN Acute worsening of chronic renal failure CAD status post prior multivessel angioplasty Status post left below-knee amputation Treat the patient with optimal medical therapy prognosis guarded not a candidate for invasive procedures at the moment Past Medical History Past Medical History: Atrial Fibrillation, Coronary Artery Disease (CAD), Chest Pain / Angina, Heart Failure, Diabetes Mellitus, Eye Disorder, Hypertension, Myocardial Infarction (TN), Osteoarthritis (OA), Pneumonia, Renal Disease, Vascular Disorder Additional Past Medical History / Comment(s): LEFT FOOT HAS BECOME GANGEROUS PER PATIENT. Pt recently admitted to [facility] on 06/16/21 with L foot cellulitis/L 4th toe amp and had peripheral vascular procedures with post hematoma and acute blood loss anemia. Other hx: NIDDM type II, neuropathy bilateral feet, 01-03-14 TN/cardiac arrest/resp failure/intubation, CKD, chronic anemia, mild thrombocytopenia, PAD, UTIs, unsteady gait, FALLS, past L eye retinal bleed with surgery. Last Myocardial Infarction Date:: 01-03-14 History of Any Multi-Drug Resistant Organisms: None Reported Past Surgical History: Heart Catheterization, Heart Catheterization With Stent Additional Past Surgical History / Comment(s): 06/18/21 L 4th toe amputation, 06/2021 L fempop angiogram/L SFA atherectomy/PTBA, stent RCA 01-07-14, stent LAD 02/14/2019, L retinal bleed with surgery, bilateral cataract removal/lens implants, colonoscopy, LT BKA Past Anesthesia/Blood Transfusion Reactions: No Reported Reaction Date of Last Stent Placement:: 2019 Past Psychological History: No Psychological Hx Reported Additional Psychological History / Comment(s): . Smoking Status: Former smoker Past Alcohol Use History: None Reported Additional Past Alcohol Use History / Comment(s): started smoking at age 27, smoked 1/2 ppd quit 2002 Past Drug Use History: None Reported - Past Family History Father Family Medical History: Cancer, Diabetes Mellitus Additional Family Medical History / Comment(s): age 70 from lung cancer Mother Family Medical History: COPD Additional Family Medical History / Comment(s): age 83 emphysema Medications and Allergies Home Medications Medication Instructions Recorded Confirmed Type Metoprolol Tartrate 12.5 mg PO BID 07/21/21 08/29/21 History Midodrine HCl [ProAmatine] 10 mg PO TID 07/21/21 08/29/21 History Spironolactone 25 mg PO DAILY 07/21/21 08/29/21 History metOLazone [Zaroxolyn] 2.5 mg PO DAILY 07/21/21 08/29/21 History Furosemide [Lasix] 40 mg PO DAILY 08/05/21 08/29/21 History Acetaminophen [Tylenol 8 Hour] 650 mg PO Q6H PRN 08/29/21 08/29/21 History Ciprofloxacin HCl [Cipro] 250 mg PO HS 08/29/21 08/29/21 History Insulin Aspart [Insulin Aspart 4 unit SQ ACHS 08/29/21 08/29/21 History Flexpen] Insulin Detemir [Levemir Flextouch 12 units SQ HS 08/29/21 08/29/21 History Pen] Allergies Allergy/AdvReac Type Severity Reaction Status Date / Time Corticosteroids Allergy Unknown Unknown Verified 08/29/21 16:23 (Glucocorticoids) azithromycin [From Zithromax] Allergy Anaphylaxis Verified 08/29/21 16:23 banana Allergy Unknown Verified 08/29/21 16:23 carisoprodol [From Soma] Allergy Unknown Verified 08/29/21 16:23 ciprofloxacin [From Cipro] Allergy Unknown Verified 08/29/21 16:23 cortisone [Cortisone] Allergy Unknown Verified 08/29/21 16:23 cyclobenzaprine HCl Allergy Unknown Verified 08/29/21 16:23 [From Flexeril] latex Allergy Rash/Hives Verified 08/29/21 16:23 Latex, Natural Rubber Allergy Rash/Hives Verified 08/29/21 16:23 levofloxacin [From Levaquin] Allergy Anaphylaxis Verified 08/29/21 16:23 Penicillins Allergy Anaphylaxis Verified 08/29/21 16:23 codeine AdvReac Nausea & Verified 08/29/21 16:23 Vomiting Physical Exam Vitals: Vital Signs Temp Pulse Pulse Resp BP BP Pulse Ox 08/30/21 08:00 98.3 F 64 16 103/51 99 08/30/21 03:56 97.5 F L 62 16 100/58 99 08/30/21 01:00 70 18 118/58 100 08/30/21 00:44 97.6 F 70 16 109/52 100 08/29/21 22:19 96.9 F L 74 16 120/53 100 08/29/21 16:04 97.2 F L 71 16 122/51 99 Intake and Output 08/29/21 08/30/21 08/30/21 22:59 06:59 14:59 Intake Total 56.899 Output Total 300 Balance -243.101 Intake: Intake, IV Titration 56.899 Amount Heparin Sod,Pork in 0.45% 56.899 NaCl 25,000 unit In 0.45 % NaCl 1 250ml.bag @ 12 UNITS/KG/HR 8.709 mls/hr IV .Q24H [facility] Rx#: [id number] Output: Urine 300 Other: Voiding Method Indwelling Catheter Indwelling Catheter Weight 72.575 kg 75 kg Results 08/30/21 03:48 08/30/21 03:48 Cardiac Enzymes 08/29/21 08/29/21 08/30/21 Range/Units 16:24 16:24 00:13 AST 1230 H (14-36) U/L Troponin I 8.820 H* 24.400 H* (0.000-0.034) ng/mL 08/30/21 Range/Units 03:48 AST (14-36) U/L Troponin I 21.300 H* (0.000-0.034) ng/mL Coagulation 08/29/21 08/30/21 Range/Units 16:24 03:48 PT 14.1 H 15.0 H (9.0-12.0) sec APTT 22.5 32.2 H (22.0-30.0) sec CBC 08/29/21 08/30/21 Range/Units 16:24 03:48 WBC 20.5 H 19.5 H (3.8-10.6) k/uL RBC 3.55 L 3.14 L (3.80-5.40) m/uL Hgb 10.0 L 9.1 L (11.4-16.0) gm/dL Hct 32.6 L 28.7 L (34.0-46.0) % Plt Count 246 217 (150-450) k/uL Comprehensive Metabolic Panel 08/29/21 08/30/21 Range/Units 16:24 03:48 Sodium 132 L 130 L (137-145) mmol/L Potassium 4.4 3.6 (3.5-5.1) mmol/L Chloride 93 L 96 L (98-107) mmol/L Carbon Dioxide 18 L 19 L (22-30) mmol/L BUN 93 H 97 H (7-17) mg/dL Creatinine 3.25 H 2.92 H (0.52-1.04) mg/dL Glucose 236 H 210 H (74-99) mg/dL Calcium 8.6 8.1 L (8.4-10.2) mg/dL AST 1230 H (14-36) U/L ALT 424 H (4-34) U/L Alkaline Phosphatase 104 (38-126) U/L Total Protein 6.9 (6.3-8.2) g/dL Albumin 3.7 (3.5-5.0) g/dL Current Medications Generic Name Dose Route Start Last Admin Trade Name Freq PRN Reason Stop Dose Admin Acetaminophen 650 mg 08/29/21 21:16 Acetaminophen Tab 325 Mg Tab PO Q6HR PRN Mild Pain or Fever > 100.5 Aspirin 81 mg 08/30/21 09:00 08/30/21 09:28 Aspirin 81 Mg PO 81 mg DAILY GARRY Administration Heparin Sodium (Porcine) 0 unit 08/29/21 20:39 08/30/21 04:44 Heparin Sodium 1,000 Un/Ml (10ml Vl) IV 3,628 unit PER PROTOCOL PRN Administration Low PTT Protocol Sodium Chloride 1,000 mls @ 75 mls/hr 08/29/21 18:30 08/30/21 01:16 Saline 0.9% IV 75 mls/hr .[id number] GARRY Administration Heparin Sodium/Sodium Chloride 250 mls @ 8.709 mls/hr 08/29/21 20:45 08/30/21 04:45 25,000 unit/ Sodium Chloride IV 15 units/kg/hr .Q24H GARRY 10.886 mls/hr Titration Protocol 12 UNITS/KG/HR Daptomycin 300 mg/ Sodium 50 mls @ 100 mls/hr 08/30/21 21:00 Chloride IVPB Q48H [facility] Protocol Insulin Aspart 4 unit 08/30/21 07:30 08/30/21 06:17 Insulin Aspart (Novolog) 100 Unit/Ml Vial SQ Not Given ACHS GARRY Insulin Aspart 0 unit 08/30/21 00:28 08/30/21 06:33 Insulin Aspart (Novolog) 100 Unit/Ml Vial SQ 2 unit ACHS [facility] Administration Protocol Insulin Detemir 12 unit 08/29/21 23:30 08/30/21 01:15 Insulin Detemir (Levemir) 100 Unit/Ml Syr SQ 12 unit HS [facility] Administration Isosorbide Mononitrate 30 mg 08/30/21 10:30 Isosorbide Mononitrate Er 30 Mg Tab.Er.24h PO DAILY [facility] Metoprolol Tartrate 12.5 mg 08/30/21 09:00 08/30/21 09:28 Metoprolol Tartrate 12.5 Mg Tab PO 12.5 mg BID [facility] Administration Midodrine 10 mg 08/30/21 09:00 08/30/21 09:28 Midodrine 5 Mg Tab PO 10 mg TID [facility] Administration Naloxone HCl 0.2 mg 08/29/21 21:16 Naloxone 0.4 Mg/Ml 1 Ml Vial IV Q2M PRN Opioid Reversal Intake and Output 08/29/21 08/30/21 08/30/21 22:59 06:59 14:59 Intake Total 56.899 Output Total 300 Balance -243.101 Intake: Intake, IV Titration 56.899 Amount Heparin Sod,Pork in 0.45% 56.899 NaCl 25,000 unit In 0.45 % NaCl 1 250ml.bag @ 12 UNITS/KG/HR 8.709 mls/hr IV .Q24H [facility] Rx#: [id number] Output: Urine 300 Other: Voiding Method Indwelling Catheter Indwelling Catheter Weight 72.575 kg 75 kg 08/30/21 03:48 08/30/21 03:48
--- NOTE | 2021-08-30 11:15 | P.NPCON ---
History of Present Illness - Reason for Consult acute renal failure - History of Present Illness Patient is a 76-year-old female with history of coronary artery disease, peripheral vascular disease, type 2 diabetes. Patient is status post left BKA done recently and was discharged to medicine [facility]. Patient was noted to have a UTI and urine retention requiring Loyola catheter placement. She was being treated with antibiotics in the form of Cipro. Patient develop chest pain mostly on the left side with shortness of breath and was therefore admitted to the hospital Serum creatinine was 3.2 on initial admission and currently decreased to 2.9. Previous creatinine in July was mostly around 2 mg/dL. Patient has underlying CK D stage IV with previous creatinine around 1.9-2 mg/dL since March 2021 with an episode of acute kidney injury with serum creatinine at 4.0 in February 2021. Currently with Loyola catheter with urine output noted at 300 mL so far this morning. Blood pressure is on the lower side at about 100-109 mmHg systolic No NSAIDs noted No RANDA inhibitor's Currently maintained on IV fluids. Diuretics on hold Review of Systems As per HPI Past Medical History Past Medical History: Atrial Fibrillation, Coronary Artery Disease (CAD), Chest Pain / Angina, Heart Failure, Diabetes Mellitus, Eye Disorder, Hypertension, Myocardial Infarction (HI), Osteoarthritis (OA), Pneumonia, Renal Disease, Vascular Disorder Additional Past Medical History / Comment(s): LEFT FOOT HAS BECOME GANGEROUS PER PATIENT. Pt recently admitted to [facility] on 06/16/21 with L foot cellulitis/L 4th toe amp and had peripheral vascular procedures with post hematoma and acute blood loss anemia. Other hx: NIDDM type II, neuropathy bilateral feet, 01-03-14 HI/cardiac arrest/resp failure/intubation, CKD, chronic anemia, mild thrombocytopenia, PAD, UTIs, unsteady gait, FALLS, past L eye retinal bleed with surgery. Last Myocardial Infarction Date:: 01-03-14 History of Any Multi-Drug Resistant Organisms: None Reported Past Surgical History: Heart Catheterization, Heart Catheterization With Stent Additional Past Surgical History / Comment(s): 06/18/21 L 4th toe amputation, 06/2021 L fempop angiogram/L SFA atherectomy/PTBA, stent RCA 01-07-14, stent LAD 02/14/2019, L retinal bleed with surgery, bilateral cataract removal/lens implants, colonoscopy, LT BKA Past Anesthesia/Blood Transfusion Reactions: No Reported Reaction Date of Last Stent Placement:: 2018 Past Psychological History: No Psychological Hx Reported Additional Psychological History / Comment(s): . Smoking Status: Former smoker Past Alcohol Use History: None Reported Additional Past Alcohol Use History / Comment(s): started smoking at age 27, smoked 1/2 ppd quit 2002 Past Drug Use History: None Reported - Past Family History Father Family Medical History: Cancer, Diabetes Mellitus Additional Family Medical History / Comment(s): age 70 from lung cancer Mother Family Medical History: COPD Additional Family Medical History / Comment(s): age 83 emphysema Medications and Allergies Home Medications Medication Instructions Recorded Confirmed Type Metoprolol Tartrate 12.5 mg PO BID 07/21/21 08/29/21 History Midodrine HCl [ProAmatine] 10 mg PO TID 07/21/21 08/29/21 History Spironolactone 25 mg PO DAILY 07/21/21 08/29/21 History metOLazone [Zaroxolyn] 2.5 mg PO DAILY 07/21/21 08/29/21 History Furosemide [Lasix] 40 mg PO DAILY 08/05/21 08/29/21 History Acetaminophen [Tylenol 8 Hour] 650 mg PO Q6H PRN 08/29/21 08/29/21 History Ciprofloxacin HCl [Cipro] 250 mg PO HS 08/29/21 08/29/21 History Insulin Aspart [Insulin Aspart 4 unit SQ ACHS 08/29/21 08/29/21 History Flexpen] Insulin Detemir [Levemir Flextouch 12 units SQ HS 08/29/21 08/29/21 History Pen] Allergies Allergy/AdvReac Type Severity Reaction Status Date / Time Corticosteroids Allergy Unknown Unknown Verified 08/29/21 16:23 (Glucocorticoids) azithromycin [From Zithromax] Allergy Anaphylaxis Verified 08/29/21 16:23 banana Allergy Unknown Verified 08/29/21 16:23 carisoprodol [From Soma] Allergy Unknown Verified 08/29/21 16:23 ciprofloxacin [From Cipro] Allergy Unknown Verified 08/29/21 16:23 cortisone [Cortisone] Allergy Unknown Verified 08/29/21 16:23 cyclobenzaprine HCl Allergy Unknown Verified 08/29/21 16:23 [From Flexeril] latex Allergy Rash/Hives Verified 08/29/21 16:23 Latex, Natural Rubber Allergy Rash/Hives Verified 08/29/21 16:23 levofloxacin [From Levaquin] Allergy Anaphylaxis Verified 08/29/21 16:23 Penicillins Allergy Anaphylaxis Verified 08/29/21 16:23 codeine AdvReac Nausea & Verified 08/29/21 16:23 Vomiting Physical Exam Vitals: Vital Signs Temp Pulse Pulse Resp BP BP Pulse Ox 08/30/21 08:00 98.3 F 64 16 103/51 99 08/30/21 03:56 97.5 F L 62 16 100/58 99 08/30/21 01:00 70 18 118/58 100 08/30/21 00:44 97.6 F 70 16 109/52 100 08/29/21 22:19 96.9 F L 74 16 120/53 100 08/29/21 16:04 97.2 F L 71 16 122/51 99 Intake and Output 08/29/21 08/30/21 08/30/21 22:59 06:59 14:59 Intake Total 56.899 Output Total 300 Balance -243.101 Intake: Intake, IV Titration 56.899 Amount Heparin Sod,Pork in 0.45% 56.899 NaCl 25,000 unit In 0.45 % NaCl 1 250ml.bag @ 12 UNITS/KG/HR 8.709 mls/hr IV .Q24H [facility] Rx#: [id number] Output: Urine 300 Other: Voiding Method Indwelling Catheter Indwelling Catheter Weight 72.575 kg 75 kg Patient is awake, comfortable, not in any acute distress Alert oriented 3 Examination of the heart S1 and S2 Examination lungs bilateral breath sounds are heard Abdomen is soft nontender Examination lower extremities shows left BKA, right leg shows 1+ edema forefoot is currently wrapped Results - Lab Results Most recent lab results Calcium 8.1 mg/dL (8.4-10.2) L 08/30/21 03:48 Magnesium 2.9 mg/dL (1.6-2.3) H 08/29/21 16:24 08/30/21 03:48 08/30/21 03:48 Assessment and Plan Assessment: 1. Acute kidney injury ATN currently nonoliguric secondary to hypotension/hypoperfusion. Patient also had urine retention prior to admission for which a Loyola catheter [facility] at the senior living. No nephrotoxic agents noted. UA shows evidence of UTI. No obstruction noted on CT of the abdomen and pelvis. Renal function is currently improving. Consider acute interstitial nephritis if renal function continues to worsen 2. Chronic kidney disease NKF stage IV secondary to nephrosclerosis baseline creatinine about 2 mg/dL 3. UTI with urine culture growing Klebsiella pneumoniae and E. coli on 08/24/2021. Started on Cipro as outpatient 4. Peripheral vascular disease status post left BKA on 08/06/2021 for gangrene and nonhealing wounds 5. Acute non-ST elevation HI 6. Anemia rule out iron deficiency. Anemia of chronic disease 7. Type 2 diabetes with diabetic neuropathy 8. Hypertension. Blood pressure currently on the lower side Plan: Continue IV fluids Continue with midodrine Repeat labs in a.m. Continue antibiotics Check random cortisol level Add Aranesp Check iron profile Thank you for the consultation. We'll continue to follow the patient with you during her hospitalization
[2021-08-30 11:34] LABS: Glucose,Whole Blood 162 mg/dL (70-110)
[2021-08-30] MEDS ORDERED: DARBEPOETIN ALFA 40 MCG/0.4 ML SYRINGE SQ SCH (12:00)
[2021-08-30] MEDS: ISOSORBIDE MONONITRATE ER 30 MG TAB.ER.24H PO SCH (12:43)
[2021-08-30 16:49] LABS: Glucose,Whole Blood 122 mg/dL (70-110)
[2021-08-30 16:50] LABS: % Iron Saturation 17.8 (12.00-45.00)
[2021-08-30 20:22] LABS: Magnesium 2.7 mg/dL (1.6-2.3); Potassium 3.5 mmol/L (3.5-5.1)
[2021-08-30 20:32] LABS: Glucose,Whole Blood 210 mg/dL (70-110)
--- NOTE | 2021-08-30 22:55 | P.CONS ---
History of Present Illness - Reason for Consult Consult date: 08/30/21 - History of Present Illness Patient is a 76-year-old female with a past medical history significant for coronary artery disease did have history of peripheral arterial disease status post left below the knee amputation diabetes mellitus hypertension and a right diabetic foot ulcer patient was recently diagnosed with a UTI at the group home and has been treated with oral Cipro because of multiple allergies however the patient having increasing left-sided chest pain along with shortness of breath and the patient was yelling for help while the patient was brought into the ER, patient on arrival to the ER was afebrile and no fever had been recorded subsequently she is currently breathing comfortably on room air patient did have a rate of 20,000 with a left shift he was noted to have elevated BUN and creatinine as well as elevated liver enzymes and elevated troponin, she did have a positive UA with a last urine culture done on 09/10/2021 was Klebsiella and E. coli patient has been started on daptomycin infectious disease was consulted for further management of antibiotic therapy patient did have a chest x-ray no active cardiopulmonary disease abdominal pelvis CT rectal fecal impaction no evidence of renal mass or obstruction patient herself not a very good historian complaining of weakness no further chest pain though complaining of nausea but no vomiting or abdominal pain unable to quantify it any further and denies having any diarrhea she did have a wound on the right foot the patient refused the dressing to be taken off in the examined Past Medical History Past Medical History: Atrial Fibrillation, Coronary Artery Disease (CAD), Chest Pain / Angina, Heart Failure, Diabetes Mellitus, Eye Disorder, Hypertension, Myocardial Infarction (TN), Osteoarthritis (OA), Pneumonia, Renal Disease, Vascular Disorder Additional Past Medical History / Comment(s): LEFT FOOT HAS BECOME GANGEROUS PER PATIENT. Pt recently admitted to [facility] on 06/16/21 with L foot cellulitis/L 4th toe amp and had peripheral vascular procedures with post hematoma and acute blood loss anemia. Other hx: NIDDM type II, neuropathy bilateral feet, 01-03 TN/cardiac arrest/resp failure/intubation, CKD, chronic anemia, mild thrombocytopenia, PAD, UTIs, unsteady gait, FALLS, past L eye retinal bleed with surgery. Last Myocardial Infarction Date:: 01-03-14 History of Any Multi-Drug Resistant Organisms: None Reported Past Surgical History: Heart Catheterization, Heart Catheterization With Stent Additional Past Surgical History / Comment(s): 06/18/21 L 4th toe amputation, 06/2021 L fempop angiogram/L SFA atherectomy/PTBA, stent RCA 01-07-14, stent LAD 02/14/2019, L retinal bleed with surgery, bilateral cataract removal/lens implants, colonoscopy, LT BKA Past Anesthesia/Blood Transfusion Reactions: No Reported Reaction Date of Last Stent Placement:: 2018 Past Psychological History: No Psychological Hx Reported Additional Psychological History / Comment(s): . Smoking Status: Former smoker Past Alcohol Use History: None Reported Additional Past Alcohol Use History / Comment(s): started smoking at age 27, smoked 1/2 ppd quit 2002 Past Drug Use History: None Reported - Past Family History Father Family Medical History: Cancer, Diabetes Mellitus Additional Family Medical History / Comment(s): age 70 from lung cancer Mother Family Medical History: COPD Additional Family Medical History / Comment(s): age 83 emphysema Medications and Allergies Home Medications Medication Instructions Recorded Confirmed Type Metoprolol Tartrate 12.5 mg PO BID 07/21/21 08/29/21 History Midodrine HCl [ProAmatine] 10 mg PO TID 07/21/21 08/29/21 History Spironolactone 25 mg PO DAILY 07/21/21 08/29/21 History metOLazone [Zaroxolyn] 2.5 mg PO DAILY 07/21/21 08/29/21 History Furosemide [Lasix] 40 mg PO DAILY 08/05/21 08/29/21 History Acetaminophen [Tylenol 8 Hour] 650 mg PO Q6H PRN 08/29/21 08/29/21 History Ciprofloxacin HCl [Cipro] 250 mg PO HS 08/29/21 08/29/21 History Insulin Aspart [Insulin Aspart 4 unit SQ ACHS 08/29/21 08/29/21 History Flexpen] Insulin Detemir [Levemir Flextouch 12 units SQ HS 08/29/21 08/29/21 History Pen] Allergies Allergy/AdvReac Type Severity Reaction Status Date / Time Corticosteroids Allergy Unknown Unknown Verified 08/29/21 16:23 (Glucocorticoids) azithromycin [From Zithromax] Allergy Anaphylaxis Verified 08/29/21 16:23 banana Allergy Unknown Verified 08/29/21 16:23 carisoprodol [From Soma] Allergy Unknown Verified 08/29/21 16:23 ciprofloxacin [From Cipro] Allergy Unknown Verified 08/29/21 16:23 cortisone [Cortisone] Allergy Unknown Verified 08/29/21 16:23 cyclobenzaprine HCl Allergy Unknown Verified 08/29/21 16:23 [From Flexeril] latex Allergy Rash/Hives Verified 08/29/21 16:23 Latex, Natural Rubber Allergy Rash/Hives Verified 08/29/21 16:23 levofloxacin [From Levaquin] Allergy Anaphylaxis Verified 08/29/21 16:23 Penicillins Allergy Anaphylaxis Verified 08/29/21 16:23 codeine AdvReac Nausea & Verified 08/29/21 16:23 Vomiting Physical Exam Vitals: Vital Signs Temp Pulse Pulse Resp BP BP Pulse Ox 08/30/21 14:00 60 16 08/30/21 12:00 97.9 F 60 16 105/50 99 08/30/21 08:00 98.3 F 64 16 103/51 99 08/30/21 03:56 97.5 F L 62 16 100/58 99 08/30/21 01:00 70 18 118/58 100 08/30/21 00:44 97.6 F 70 16 109/52 100 08/29/21 22:19 96.9 F L 74 16 120/53 100 08/29/21 16:04 97.2 F L 71 16 122/51 99 Intake and Output 08/30/21 08/30/21 08/30/21 06:59 14:59 22:59 Intake Total 56.899 85.455 Output Total 300 400 Balance -243.101 -314.545 Intake: Intake, IV Titration 56.899 85.455 Amount Heparin Sod,Pork in 0.45% 56.899 85.455 NaCl 25,000 unit In 0.45 % NaCl 1 250ml.bag @ 12 UNITS/KG/HR 8.709 mls/hr IV .Q24H [facility] Rx#: [id number] Output: Urine 300 400 Other: Voiding Method Indwelling Catheter Indwelling Catheter Weight 75 kg Results CBC & Chem 7: 08/30/21 03:48 08/30/21 19:16 Labs: Abnormal Lab Results - Last 24 Hours (Table) 08/29/21 08/29/21 08/29/21 Range/Units 16:24 16:24 16:24 WBC 20.5 H (3.8-10.6) k/uL RBC 3.55 L (3.80-5.40) m/uL Hgb 10.0 L (11.4-16.0) gm/dL Hct 32.6 L (34.0-46.0) % MCHC 30.6 L (31.0-37.0) g/dL Neutrophils # 18.4 H (1.3-7.7) k/uL PT 14.1 H (9.0-12.0) sec INR 1.4 H (<1.2) APTT (22.0-30.0) sec Sodium (137-145) mmol/L Chloride (98-107) mmol/L Carbon Dioxide (22-30) mmol/L BUN (7-17) mg/dL Creatinine (0.52-1.04) mg/dL Glucose (74-99) mg/dL POC Glucose (mg/dL) (70-110) mg/dL Calcium (8.4-10.2) mg/dL Magnesium (1.6-2.3) mg/dL Total Bilirubin (0.2-1.3) mg/dL AST (14-36) U/L ALT (4-34) U/L Troponin I (0.000-0.034) ng/mL Urine Appearance Turbid H (Clear) Urine Protein 2+ H (Negative) Urine Glucose (UA) Trace H (Negative) Urine Blood Moderate H (Negative) Ur Leukocyte Esterase Large H (Negative) Urine RBC >182 H (0-5) /hpf Urine WBC >182 H (0-5) /hpf Urine WBC Clumps Many H (None) /hpf Ur Squamous Epith Cells 14 H (0-4) /hpf Urine Bacteria Many H (None) /hpf 08/29/21 08/29/21 08/29/21 Range/Units 16:24 16:24 23:31 WBC (3.8-10.6) k/uL RBC (3.80-5.40) m/uL Hgb (11.4-16.0) gm/dL Hct (34.0-46.0) % MCHC (31.0-37.0) g/dL Neutrophils # (1.3-7.7) k/uL PT (9.0-12.0) sec INR (<1.2) APTT (22.0-30.0) sec Sodium 132 L (137-145) mmol/L Chloride 93 L (98-107) mmol/L Carbon Dioxide 18 L (22-30) mmol/L BUN 93 H (7-17) mg/dL Creatinine 3.25 H (0.52-1.04) mg/dL Glucose 236 H (74-99) mg/dL POC Glucose (mg/dL) 277 H (70-110) mg/dL Calcium (8.4-10.2) mg/dL Magnesium 2.9 H (1.6-2.3) mg/dL Total Bilirubin 2.1 H (0.2-1.3) mg/dL AST 1230 H (14-36) U/L ALT 424 H (4-34) U/L Troponin I 8.820 H* (0.000-0.034) ng/mL Urine Appearance (Clear) Urine Protein (Negative) Urine Glucose (UA) (Negative) Urine Blood (Negative) Ur Leukocyte Esterase (Negative) Urine RBC (0-5) /hpf Urine WBC (0-5) /hpf Urine WBC Clumps (None) /hpf Ur Squamous Epith Cells (0-4) /hpf Urine Bacteria (None) /hpf 08/30/21 08/30/21 08/30/21 Range/Units 00:13 03:48 03:48 WBC 19.5 H (3.8-10.6) k/uL RBC 3.14 L (3.80-5.40) m/uL Hgb 9.1 L (11.4-16.0) gm/dL Hct 28.7 L (34.0-46.0) % MCHC (31.0-37.0) g/dL Neutrophils # 16.5 H (1.3-7.7) k/uL PT (9.0-12.0) sec INR (<1.2) APTT (22.0-30.0) sec Sodium 130 L (137-145) mmol/L Chloride 96 L (98-107) mmol/L Carbon Dioxide 19 L (22-30) mmol/L BUN 97 H (7-17) mg/dL Creatinine 2.92 H (0.52-1.04) mg/dL Glucose 210 H (74-99) mg/dL POC Glucose (mg/dL) (70-110) mg/dL Calcium 8.1 L (8.4-10.2) mg/dL Magnesium (1.6-2.3) mg/dL Total Bilirubin (0.2-1.3) mg/dL AST (14-36) U/L ALT (4-34) U/L Troponin I 24.400 H* (0.000-0.034) ng/mL Urine Appearance (Clear) Urine Protein (Negative) Urine Glucose (UA) (Negative) Urine Blood (Negative) Ur Leukocyte Esterase (Negative) Urine RBC (0-5) /hpf Urine WBC (0-5) /hpf Urine WBC Clumps (None) /hpf Ur Squamous Epith Cells (0-4) /hpf Urine Bacteria (None) /hpf 08/30/21 08/30/21 08/30/21 Range/Units 03:48 03:48 06:05 WBC (3.8-10.6) k/uL RBC (3.80-5.40) m/uL Hgb (11.4-16.0) gm/dL Hct (34.0-46.0) % MCHC (31.0-37.0) g/dL Neutrophils # (1.3-7.7) k/uL PT 15.0 H (9.0-12.0) sec INR 1.5 H (<1.2) APTT 32.2 H (22.0-30.0) sec Sodium (137-145) mmol/L Chloride (98-107) mmol/L Carbon Dioxide (22-30) mmol/L BUN (7-17) mg/dL Creatinine (0.52-1.04) mg/dL Glucose (74-99) mg/dL POC Glucose (mg/dL) 196 H (70-110) mg/dL Calcium (8.4-10.2) mg/dL Magnesium (1.6-2.3) mg/dL Total Bilirubin (0.2-1.3) mg/dL AST (14-36) U/L ALT (4-34) U/L Troponin I 21.300 H* (0.000-0.034) ng/mL Urine Appearance (Clear) Urine Protein (Negative) Urine Glucose (UA) (Negative) Urine Blood (Negative) Ur Leukocyte Esterase (Negative) Urine RBC (0-5) /hpf Urine WBC (0-5) /hpf Urine WBC Clumps (None) /hpf Ur Squamous Epith Cells (0-4) /hpf Urine Bacteria (None) /hpf 08/30/21 08/30/21 Range/Units 11:33 11:45 WBC (3.8-10.6) k/uL RBC (3.80-5.40) m/uL Hgb (11.4-16.0) gm/dL Hct (34.0-46.0) % MCHC (31.0-37.0) g/dL Neutrophils # (1.3-7.7) k/uL PT (9.0-12.0) sec INR (<1.2) APTT 75.8 H (22.0-30.0) sec Sodium (137-145) mmol/L Chloride (98-107) mmol/L Carbon Dioxide (22-30) mmol/L BUN (7-17) mg/dL Creatinine (0.52-1.04) mg/dL Glucose (74-99) mg/dL POC Glucose (mg/dL) 162 H (70-110) mg/dL Calcium (8.4-10.2) mg/dL Magnesium (1.6-2.3) mg/dL Total Bilirubin (0.2-1.3) mg/dL AST (14-36) U/L ALT (4-34) U/L Troponin I (0.000-0.034) ng/mL Urine Appearance (Clear) Urine Protein (Negative) Urine Glucose (UA) (Negative) Urine Blood (Negative) Ur Leukocyte Esterase (Negative) Urine RBC (0-5) /hpf Urine WBC (0-5) /hpf Urine WBC Clumps (None) /hpf Ur Squamous Epith Cells (0-4) /hpf Urine Bacteria (None) /hpf Microbiology - Last 24 Hours (Table) 08/29/21 16:24 Urine Culture - Preliminary Urine,Voided Assessment and Plan Plan: 1patient presented to hospital with multiple symptoms and this patient did have elevated white count significantly positive UA and indwelling [place] catheter lactic acidosis UTI last urine culture positive for Klebsiella and E. coli could be the likely pathogen failing outpatient antibiotic therapy. 2patient with multiple antibiotic allergies that would limit the number of antibiotics safe to use. 3we will start the patient on Rocephin 2 g daily while waiting for the culture to finalize. We will follow on clinical condition and cultures to further adjust medication if needed Thank you for this consultation will follow this patient along with you Time with Patient: Greater than 30
[2021-08-30] MEDS: HEPARIN SOD,PORK IN 0.45% NACL 25,000 UNIT in 0.45% NACL 1 250ML.BAG IV SCH (23:27)
[2021-08-31] MEDS: ACETAMINOPHEN TAB 325 MG TAB PO PRN ×3 (02:46→22:55)
[2021-08-31 06:27] LABS: Glucose,Whole Blood 72 mg/dL (70-110)
[2021-08-31] MEDS: INSULIN ASPART (NovoLOG) 100 UNIT/ML VIAL SQ SCH ×8 (06:33→21:09)
[2021-08-31] MEDS: MIDODRINE 5 MG TAB PO SCH ×3 (09:24→21:29)
[2021-08-31] MEDS: ISOSORBIDE MONONITRATE ER 30 MG TAB.ER.24H PO SCH (09:24)
[2021-08-31] MEDS: METOPROLOL TARTRATE 12.5 MG TAB PO SCH ×2 (09:24→21:30)
[2021-08-31] MEDS: ASPIRIN 81 MG PO SCH (09:24)
--- NOTE | 2021-08-31 09:38 | P.PN ---
Subjective Patient is seen in follow-up for acute kidney injury on chronic kidney disease. Creatinine was 3.5 on admission and down to 2.92 yesterday. Patient denies any active chest pain. Receiving IV fluids. Nonoliguric. On antibiotics for UTI. Patient is not a very reliable historian. Vital signs are stable. General: No acute distress. HEENT: Head exam is unremarkable. LUNGS: Breath sounds decreased. HEART: Rate and Rhythm are regular. ABDOMEN: Soft, no distention. EXTREMITITES: No edema. Objective - Vital Signs Vital signs: Vital Signs Temp 97.3 F L 08/31/21 04:00 Pulse 69 08/31/21 04:00 Resp 18 08/31/21 04:00 BP 100/48 08/31/21 04:00 Pulse Ox 95 08/31/21 04:00 FiO2 Intake & Output 08/30/21 08/31/21 08/31/21 18:59 06:59 18:59 Intake Total 85.455 102.37 Output Total 400 1330 250 Balance -314.545 -1227.63 -250 Intake: Intake, IV Titration 85.455 102.37 Amount Heparin Sod,Pork in 0.45% 85.455 102.37 NaCl 25,000 unit In 0.45 % NaCl 1 250ml.bag @ 12 UNITS/KG/HR 8.709 mls/hr IV .Q24H [facility] Rx#: [id number] Output: Urine 400 1330 250 Other: Voiding Method Indwelling Catheter Indwelling Catheter # Bowel Movements 1 - Labs CBC & Chem 7: 08/30/21 03:48 08/30/21 19:16 Labs: Abnormal Lab Results - Last 24 Hours (Table) 08/30/21 08/30/21 08/30/21 Range/Units 11:33 11:45 11:45 APTT 75.8 H (22.0-30.0) sec POC Glucose (mg/dL) 162 H (70-110) mg/dL Magnesium (1.6-2.3) mg/dL Iron 31 L (50-170) ug/dL TIBC 176 L (228-460) ug/dL Transferrin 126.0 L (204.0-354.0) mg/dL 08/30/21 08/30/21 08/30/21 Range/Units 16:48 19:16 19:16 APTT 50.7 H (22.0-30.0) sec POC Glucose (mg/dL) 122 H (70-110) mg/dL Magnesium 2.7 H (1.6-2.3) mg/dL Iron (50-170) ug/dL TIBC (228-460) ug/dL Transferrin (204.0-354.0) mg/dL 08/30/21 Range/Units 20:30 APTT (22.0-30.0) sec POC Glucose (mg/dL) 210 H (70-110) mg/dL Magnesium (1.6-2.3) mg/dL Iron (50-170) ug/dL TIBC (228-460) ug/dL Transferrin (204.0-354.0) mg/dL Microbiology - Last 24 Hours (Table) 08/30/21 00:51 Blood Culture - Preliminary Blood No Growth after 24 hours 08/29/21 16:24 Urine Culture - Preliminary Urine,Voided Gram Neg Bacilli Assessment and Plan Plan: Assessment: 1. Acute kidney injury secondary to ATN secondary to diuresis and infection. Creatinine 3.25 on admission and down to 2.92 yesterday. No hydronephrosis noted on CAT scan. 2. Chronic kidney disease stage IV secondary to nephrosclerosis with baseline creatinine near 2. 3. Gram-negative UTI on antibiotics. 4. Non-ST elevated myocardial infarction maintained on IV heparin. Cardiology following. 5. Anemia of chronic kidney disease. Iron deficiency noted. On Aranesp. 6. Diabetes mellitus. Plan: Maintain IV fluids. Follow-up echocardiogram. Check labs today. Avoid nephrotoxins. Cortisol level not low. Add IV iron.
--- NOTE | 2021-08-31 10:46 | P.PN ---
Subjective Progress Note Date: 08/31/21 Principal diagnosis: Acute coronary syndrome This is a 76-year-old female patient with a past medical history significant for coronary artery disease as well as paroxysmal atrial fibrillation as well as multiple comorbid conditions including history of GI bleeding was brought from an extended care facility to the hospital with a chest discomfort and shortness of breath. She was ruled in for acute coronary syndrome. Also she is in acute on chronic renal failure. The patient was seen this morning. She is somewhat confused. She is hemodynamically stable was marginally low normal blood pressure. She is not experiencing any symptoms of chest pain or chest discomfort this morning. She looks pale on examination. Giving the overall condition and renal failure I would advise a conservative medical approach. I will follow-up on the echocardiogram to assess for any wall motion abnormalities and also to assess ejection fraction. Objective - Vital Signs Vital signs: Vital Signs Temp 97.3 F L 08/31/21 04:00 Pulse 69 08/31/21 04:00 Resp 18 08/31/21 04:00 BP 100/48 08/31/21 04:00 Pulse Ox 95 08/31/21 04:00 FiO2 Intake & Output 08/30/21 08/31/21 08/31/21 18:59 06:59 18:59 Intake Total 85.455 102.37 Output Total 400 1330 250 Balance -314.545 -1227.63 -250 Intake: Intake, IV Titration 85.455 102.37 Amount Heparin Sod,Pork in 0.45% 85.455 102.37 NaCl 25,000 unit In 0.45 % NaCl 1 250ml.bag @ 12 UNITS/KG/HR 8.709 mls/hr IV .Q24H [facility] Rx#: [id number] Output: Urine 400 1330 250 Other: Voiding Method Indwelling Catheter Indwelling Catheter # Bowel Movements 1 - Constitutional General appearance: Present: no acute distress - Respiratory Respiratory: bilateral: diminished - Cardiovascular Heart sounds: normal: S1, S2 - Labs CBC & Chem 7: 08/30/21 03:48 08/30/21 19:16 Labs: Abnormal Lab Results - Last 24 Hours (Table) 08/30/21 08/30/21 08/30/21 Range/Units 11:33 11:45 11:45 APTT 75.8 H (22.0-30.0) sec POC Glucose (mg/dL) 162 H (70-110) mg/dL Magnesium (1.6-2.3) mg/dL Iron 31 L (50-170) ug/dL TIBC 176 L (228-460) ug/dL Transferrin 126.0 L (204.0-354.0) mg/dL 08/30/21 08/30/21 08/30/21 Range/Units 16:48 19:16 19:16 APTT 50.7 H (22.0-30.0) sec POC Glucose (mg/dL) 122 H (70-110) mg/dL Magnesium 2.7 H (1.6-2.3) mg/dL Iron (50-170) ug/dL TIBC (228-460) ug/dL Transferrin (204.0-354.0) mg/dL 08/30/21 08/31/21 Range/Units 20:30 08:26 APTT 60.3 H (22.0-30.0) sec POC Glucose (mg/dL) 210 H (70-110) mg/dL Magnesium (1.6-2.3) mg/dL Iron (50-170) ug/dL TIBC (228-460) ug/dL Transferrin (204.0-354.0) mg/dL Microbiology - Last 24 Hours (Table) 08/30/21 00:51 Blood Culture - Preliminary Blood No Growth after 24 hours 08/29/21 16:24 Urine Culture - Preliminary Urine,Voided Gram Neg Bacilli Assessment and Plan Assessment: Assessment #1 acute non-ST deviation myocardial infarction #2 blood loss anemia #3 acute on chronic Failure #4 multiple comorbid conditions Plan #1 consider conservative medical approach #2 DC heparin since it has been more than 48 hours #3 continue beta chely and aspirin #4 follow-up with the echocardiogram
[2021-08-31 10:54] LABS: Basophils % (A) 0 %; Eosinophils # (A) 0.1 k/uL (0-0.7); Eosinophils % (A) 1 %; HCT 27.5 % (34.0-46.0); HGB 8.6 gm/dL (11.4-16.0); Hypochromasia Marked; Lymphocytes # (A) 2.1 k/uL (1.0-4.8); Lymphocytes % (A) 14 %; MCH 28.6 pg (25.0-35.0); MCHC 31.2 g/dL (31.0-37.0); MCV 91.7 fL (80.0-100.0); Mean Platelet Volume 9.9; Monocytes % (A) 6 %; Neutrophils % (A) 78 %; Platelet Count 207 k/uL (150-450); RDW 15.3 % (11.5-15.5); WBC 15.5 k/uL (3.8-10.6)
[2021-08-31 11:06] LABS: Albumin 2.9 g/dL (3.5-5.0); Calcium 7.4 mg/dL (8.4-10.2); Magnesium 2.6 mg/dL (1.6-2.3); Potassium 3.3 mmol/L (3.5-5.1); Total Bilirubin 0.9 mg/dL (0.2-1.3); Total Protein 5.9 g/dL (6.3-8.2)
[2021-08-31 11:46] LABS: Glucose,Whole Blood 127 mg/dL (70-110)
[2021-08-31] MEDS: SODIUM FERRIC GLUCONAT-SUCROSE 125 MG in SODIUM CHLORIDE 0.9% 100 ML IVPB SCH (12:04)
--- NOTE | 2021-08-31 12:19 | P.CNPUL ---
History of Present Illness Consult date: 08/31/21 Requesting physician: Toshia Nesbitt Reason for consult: other Chief complaint: Gastrointestinal bleeding. History of present illness: Pulmonary consult dated 08/31/2021. 76-year-old female who was initially evaluated in the emergency room on August 29. The patient apparently has a history of coronary disease, atrial fibrillation, diabetes, chronic kidney disease, and recent left below the knee amputation. She was brought to the emergency room, by EMS, from [facility]. She apparently was having chest pain there, and because of that, she was brought into the hospital to be evaluated. She also may have been acting erratically there, and apparently yelling and screaming at the nursing facility. She was recently hospitalized for gangrenous toes on the right foot, and also recently had a left low the knee amputation as well. The patient was admitted and was found to have a non-ST segment elevation myocardial infarction, with initial troponin of 8, increasing up to 24, and then 21. The patient was started on IV heparin, but apparently developed an acute GI bleed, with maroon stools, and a decline in her hemoglobin level. Heparin was discontinued by cardiology. She w as also seen by nephrology for renal failure. We are asked to see the patient for possible transfer to intensive care unit. The patient is currently on room air. IV heparin has been discontinued. She's in no acute distress, but she does look pale. She is complaining of abdominal discomfort. Labs include a white count of 15.5, hemoglobin 8.6, hematocrit 27.5, and a platelet count of 207,000. PTT is 60.3. Sodium 132, calcium 3.3, chlorides 102, CO2 20, anion gap 10, BUN 85, with a creatinine of 2.03. Liver function tests are abnormal with an AST of 653 and an ALT of 390. The patient did have a computed tomography scan of the abdomen and pelvis, which did not show anything acute. Chest x-ray was normal. Review of Systems REVIEW OF SYSTEMS: CONSTITUTIONAL: [Negative.] NEUROLOGIC: Abnormal behavior at the custodial. HEENT: [ Negative.] CARDIAC: Chest pain, not currently though. PULMONARY: [Negative.] GI: Abdominal discomfort, GI bleed. : [Negative.] RHEUMATOLOGIC: [ Negative.] IMMUNOLOGIC: [ Negative.] ENDOCRINE: [Negative. ] DERMATOLOGIC: [Negative.] Past Medical History Past Medical History: Atrial Fibrillation, Coronary Artery Disease (CAD), Chest Pain / Angina, Heart Failure, Diabetes Mellitus, Eye Disorder, Hypertension, Myocardial Infarction ([place]), Osteoarthritis (OA), Pneumonia, Renal Disease, Vascular Disorder Additional Past Medical History / Comment(s): LEFT FOOT HAS BECOME GANGEROUS PER PATIENT. Pt recently admitted to [facility] on 06/16/21 with L foot cellulitis/L 4th toe amp and had peripheral vascular procedures with post hematoma and acute blood loss anemia. Other hx: NIDDM type II, neuropathy bilateral feet, 01-03-14 [place]/cardiac arrest/resp failure/intubation, CKD, chronic anemia, mild thrombocytopenia, PAD, UTIs, unsteady gait, FALLS, past L eye retinal bleed with surgery. Last Myocardial Infarction Date:: 01-03-14 History of Any Multi-Drug Resistant Organisms: None Reported Past Surgical History: Heart Catheterization, Heart Catheterization With Stent Additional Past Surgical History / Comment(s): 06/18/21 L 4th toe amputation, 06/2021 L fempop angiogram/L SFA atherectomy/PTBA, stent RCA 01-07-14, stent LAD 02/14/2019, L retinal bleed with surgery, bilateral cataract removal/lens implants, colonoscopy, LT BKA Past Anesthesia/Blood Transfusion Reactions: No Reported Reaction Date of Last Stent Placement:: 2018 Past Psychological History: No Psychological Hx Reported Additional Psychological History / Comment(s): . Smoking Status: Former smoker Past Alcohol Use History: None Reported Additional Past Alcohol Use History / Comment(s): started smoking at age 27, smoked 1/2 ppd quit 2002 Past Drug Use History: None Reported - Past Family History Father Family Medical History: Cancer, Diabetes Mellitus Additional Family Medical History / Comment(s): age 70 from lung cancer Mother Family Medical History: COPD Additional Family Medical History / Comment(s): age 83 emphysema Medications and Allergies Home Medications Medication Instructions Recorded Confirmed Type Metoprolol Tartrate 12.5 mg PO BID 07/21/21 08/29/21 History Midodrine HCl [ProAmatine] 10 mg PO TID 07/21/21 08/29/21 History Spironolactone 25 mg PO DAILY 07/21/21 08/29/21 History metOLazone [Zaroxolyn] 2.5 mg PO DAILY 07/21/21 08/29/21 History Furosemide [Lasix] 40 mg PO DAILY 08/05/21 08/29/21 History Acetaminophen [Tylenol 8 Hour] 650 mg PO Q6H PRN 08/29/21 08/29/21 History Ciprofloxacin HCl [Cipro] 250 mg PO HS 08/29/21 08/29/21 History Insulin Aspart [Insulin Aspart 4 unit SQ ACHS 08/29/21 08/29/21 History Flexpen] Insulin Detemir [Levemir Flextouch 12 units SQ HS 08/29/21 08/29/21 History Pen] Allergies Allergy/AdvReac Type Severity Reaction Status Date / Time Corticosteroids Allergy Unknown Unknown Verified 08/29/21 16:23 (Glucocorticoids) azithromycin [From Zithromax] Allergy Anaphylaxis Verified 08/29/21 16:23 banana Allergy Unknown Verified 08/29/21 16:23 carisoprodol [From Soma] Allergy Unknown Verified 08/29/21 16:23 ciprofloxacin [From Cipro] Allergy Unknown Verified 08/29/21 16:23 cortisone [Cortisone] Allergy Unknown Verified 08/29/21 16:23 cyclobenzaprine HCl Allergy Unknown Verified 08/29/21 16:23 [From Flexeril] latex Allergy Rash/Hives Verified 08/29/21 16:23 Latex, Natural Rubber Allergy Rash/Hives Verified 08/29/21 16:23 levofloxacin [From Levaquin] Allergy Anaphylaxis Verified 08/29/21 16:23 Penicillins Allergy Anaphylaxis Verified 08/29/21 16:23 codeine AdvReac Nausea & Verified 08/29/21 16:23 Vomiting Physical Exam Osteopathic Statement: *. No significant issues noted on an osteopathic structural exam other than those noted in the History and Physical/Consult. Vitals: Vital Signs Temp Pulse Resp BP Pulse Ox 08/31/21 08:00 97.6 F 66 16 109/65 99 08/31/21 04:00 97.3 F L 69 18 100/48 95 08/31/21 00:00 98.2 F 63 16 102/55 99 08/30/21 20:01 97.8 F 71 18 124/61 100 08/30/21 16:00 98.0 F 65 18 107/55 100 08/30/21 14:00 60 16 Intake and Output 08/30/21 08/31/21 08/31/21 22:59 06:59 14:59 Intake Total 102.37 Output Total 280 1050 250 Balance -280 -947.63 -250 Intake: Intake, IV Titration 102.37 Amount Heparin Sod,Pork in 0.45% 102.37 NaCl 25,000 unit In 0.45 % NaCl 1 250ml.bag @ 12 UNITS/KG/HR 8.709 mls/hr IV .Q24H [facility] Rx#: [id number] Output: Urine 280 1050 250 Other: Voiding Method Indwelling Catheter Indwelling Catheter Indwelling Catheter # Bowel Movements 1 No acute distress, oriented 3. Very pale appearing. Currently on room air. HEENT examination is grossly unremarkable. Neck supple. Full range of motion. No adenopathy thyromegaly or neck vein distention. Cardiovascular examination reveals regular rhythm rate. S1-S2 normal. No S3 or S4. No discernible murmur noted. Heart rate 60 bpm. Lungs reveal clear breath sounds. Breath sounds are equal bilaterally. No adventitious lung sounds including wheezes rhonchi or crackles. Abdomen soft, with periumbilical pain on palpation. Bowel sounds are noted. Extremities reveal a relatively recent left BKA, and a right foot which is wrapped, because of gangrenous toes. Skin is pale, with multiple areas of ecchymoses noted. Neurologic examination is brief but nonfocal. Results - Laboratory Findings CBC and BMP: 08/31/21 10:37 08/31/21 10:37 PT/INR, D-dimer PT 15.0 sec (9.0-12.0) H 08/30/21 03:48 INR 1.5 (<1.2) H 08/30/21 03:48 Abnormal lab findings: Abnormal Labs 08/29/21 08/29/21 08/29/21 16:24 16:24 16:24 WBC 20.5 H RBC 3.55 L Hgb 10.0 L Hct 32.6 L MCHC 30.6 L Neutrophils # 18.4 H PT 14.1 H INR 1.4 H APTT Sodium Potassium Chloride Carbon Dioxide BUN Creatinine Glucose POC Glucose (mg/dL) Calcium Magnesium Iron TIBC Transferrin Total Bilirubin AST ALT Troponin I Total Protein Albumin Urine Appearance Turbid H Urine Protein 2+ H Urine Glucose (UA) Trace H Urine Blood Moderate H Ur Leukocyte Esterase Large H Urine RBC >182 H Urine WBC >182 H Urine WBC Clumps Many H Ur Squamous Epith Cells 14 H Urine Bacteria Many H 08/29/21 08/29/21 08/29/21 16:24 16:24 23:31 WBC RBC Hgb Hct MCHC Neutrophils # PT INR APTT Sodium 132 L Potassium Chloride 93 L Carbon Dioxide 18 L BUN 93 H Creatinine 3.25 H Glucose 236 H POC Glucose (mg/dL) 277 H Calcium Magnesium 2.9 H Iron TIBC Transferrin Total Bilirubin 2.1 H AST 1230 H ALT 424 H Troponin I 8.820 H* Total Protein Albumin Urine Appearance Urine Protein Urine Glucose (UA) Urine Blood Ur Leukocyte Esterase Urine RBC Urine WBC Urine WBC Clumps Ur Squamous Epith Cells Urine Bacteria 08/30/21 08/30/21 08/30/21 00:13 03:48 03:48 WBC 19.5 H RBC 3.14 L Hgb 9.1 L Hct 28.7 L MCHC Neutrophils # 16.5 H PT INR APTT Sodium 130 L Potassium Chloride 96 L Carbon Dioxide 19 L BUN 97 H Creatinine 2.92 H Glucose 210 H POC Glucose (mg/dL) Calcium 8.1 L Magnesium Iron TIBC Transferrin Total Bilirubin AST ALT Troponin I 24.400 H* Total Protein Albumin Urine Appearance Urine Protein Urine Glucose (UA) Urine Blood Ur Leukocyte Esterase Urine RBC Urine WBC Urine WBC Clumps Ur Squamous Epith Cells Urine Bacteria 08/30/21 08/30/21 08/30/21 03:48 03:48 06:05 WBC RBC Hgb Hct MCHC Neutrophils # PT 15.0 H INR 1.5 H APTT 32.2 H Sodium Potassium Chloride Carbon Dioxide BUN Creatinine Glucose POC Glucose (mg/dL) 196 H Calcium Magnesium Iron TIBC Transferrin Total Bilirubin AST ALT Troponin I 21.300 H* Total Protein Albumin Urine Appearance Urine Protein Urine Glucose (UA) Urine Blood Ur Leukocyte Esterase Urine RBC Urine WBC Urine WBC Clumps Ur Squamous Epith Cells Urine Bacteria 08/30/21 08/30/21 08/30/21 11:33 11:45 11:45 WBC RBC Hgb Hct MCHC Neutrophils # PT INR APTT 75.8 H Sodium Potassium Chloride Carbon Dioxide BUN Creatinine Glucose POC Glucose (mg/dL) 162 H Calcium Magnesium Iron 31 L TIBC 176 L Transferrin 126.0 L Total Bilirubin AST ALT Troponin I Total Protein Albumin Urine Appearance Urine Protein Urine Glucose (UA) Urine Blood Ur Leukocyte Esterase Urine RBC Urine WBC Urine WBC Clumps Ur Squamous Epith Cells Urine Bacteria 08/30/21 08/30/21 08/30/21 16:48 19:16 19:16 WBC RBC Hgb Hct MCHC Neutrophils # PT INR APTT 50.7 H Sodium Potassium Chloride Carbon Dioxide BUN Creatinine Glucose POC Glucose (mg/dL) 122 H Calcium Magnesium 2.7 H Iron TIBC Transferrin Total Bilirubin AST ALT Troponin I Total Protein Albumin Urine Appearance Urine Protein Urine Glucose (UA) Urine Blood Ur Leukocyte Esterase Urine RBC Urine WBC Urine WBC Clumps Ur Squamous Epith Cells Urine Bacteria 08/30/21 08/31/21 08/31/21 20:30 08:26 10:37 WBC 15.5 H RBC 3.00 L Hgb 8.6 L Hct 27.5 L MCHC Neutrophils # 12.0 H PT INR APTT 60.3 H Sodium Potassium Chloride Carbon Dioxide BUN Creatinine Glucose POC Glucose (mg/dL) 210 H Calcium Magnesium Iron TIBC Transferrin Total Bilirubin AST ALT Troponin I Total Protein Albumin Urine Appearance Urine Protein Urine Glucose (UA) Urine Blood Ur Leukocyte Esterase Urine RBC Urine WBC Urine WBC Clumps Ur Squamous Epith Cells Urine Bacteria 08/31/21 08/31/21 10:37 11:44 WBC RBC Hgb Hct MCHC Neutrophils # PT INR APTT Sodium 132 L Potassium 3.3 L Chloride Carbon Dioxide 20 L BUN 85 H Creatinine 2.03 H Glucose 106 H POC Glucose (mg/dL) 127 H Calcium 7.4 L Magnesium 2.6 H Iron TIBC Transferrin Total Bilirubin AST 653 H ALT 390 H Troponin I Total Protein 5.9 L Albumin 2.9 L Urine Appearance Urine Protein Urine Glucose (UA) Urine Blood Ur Leukocyte Esterase Urine RBC Urine WBC Urine WBC Clumps Ur Squamous Epith Cells Urine Bacteria - Diagnostic Findings Chest x-ray: image reviewed Assessment and Plan Assessment: Acute gastrointestinal bleed, in a patient who was recently admitted for non-ST segment elevation myocardial infarction, and was recently on IV heparin. Acute urinary tract infection, secondary to a gram-negative bacilli. 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 Gangrenous toes, right foot. History of atrial fibrillation. History of CAD, status post stent placement. History of previous myocardial infarction. History of hypertension. History of diabetes, with diabetic end organ involvement. History of chronic kidney disease. Peripheral vascular occlusive disease. Multiple other medical problems and comorbidities. Plan: Plan dated 08/31/2021. The patient will be transferred to the intensive care unit for further monitoring and management. The patient has been seen by both cardiology and by nephrology. Her renal function is actually a bit improved. IV heparin has been discontinued. The patient did have some maroon stools. Her hemoglobin has dropped and she does look pale. Blood pressure and saturation are stable the current time. The patient is a DO NOT INTUBATE patient. Additional recommendations and suggestions are forthcoming. Prognosis is certainly guarde d. The patient recently had a left BKA, August 06, by Dr. Loyola. Time with Patient: Greater than 30
[2021-08-31] MEDS ORDERED: POTASSIUM CHLORIDE ER 20 MEQ TAB.ER PO STA (12:55)
[2021-08-31 13:13] LABS: Glucose,Whole Blood 109 mg/dL (70-110)
[2021-08-31] MEDS: SODIUM CHLORIDE 0.9% 1,000 ML IV SCH (15:29)
--- NOTE | 2021-08-31 15:55 | P.GSCN ---
History of Present Illness Consult date: 08/31/21 Reason for Consult: GI bleed History of present illness: 76-year-old female came to the ER with left-sided chest pain from a extended care facility. Patient was also short of breath and had some mental status changes. Patient had a recent hospital stay for peripheral vascular disease requiring a left below-knee amputation. This hospital stay patient was found to have elevated troponins and was started on IV heparin. Today the patient had a maroon-colored stool and she was transferred to the ICU. Patient apparently looked pale per the rounding staff at the time of her evaluation this morning. No hypotension. No syncopal episodes. Liver enzymes are elevated. Denies abdominal pain to me however previous notes said she had some discomfort. She did have a CAT scan when she came to the hospital that showed fecal impaction. Patient states she has had a colonoscopy but was many years ago. No history of ulcer disease. No further bleeding since transferred to the ICU. Patient's liver enzymes were elevated on admission and they are trending downwards. Hemoglobin was 10 and is now 8.6. Past Medical History Past Medical History: Atrial Fibrillation, Coronary Artery Disease (CAD), Chest Pain / Angina, Heart Failure, Diabetes Mellitus, Eye Disorder, Hypertension, Myocardial Infarction ([place]), Osteoarthritis (OA), Pneumonia, Renal Disease, Vascular Disorder Additional Past Medical History / Comment(s): LEFT FOOT HAS BECOME GANGEROUS PER PATIENT. Pt recently admitted to [facility] on 06/16/21 with L foot cellulitis/L 4th toe amp and had peripheral vascular procedures with post hematoma and acute blood loss anemia. Other hx: NIDDM type II, neuropathy bilateral feet, 01-03-14 [place]/cardiac arrest/resp failure/intubation, CKD, chronic anemia, mild thrombocytopenia, PAD, UTIs, unsteady gait, FALLS, past L eye retinal bleed with surgery. Last Myocardial Infarction Date:: 01-03-14 History of Any Multi-Drug Resistant Organisms: None Reported Past Surgical History: Heart Catheterization, Heart Catheterization With Stent Additional Past Surgical History / Comment(s): 06/18/21 L 4th toe amputation, 06/2021 L fempop angiogram/L SFA atherectomy/PTBA, stent RCA 01-07-14, stent LAD 02/14/2019, L retinal bleed with surgery, bilateral cataract removal/lens implants, colonoscopy, LT BKA Past Anesthesia/Blood Transfusion Reactions: No Reported Reaction Date of Last Stent Placement:: 2018 Past Psychological History: No Psychological Hx Reported Additional Psychological History / Comment(s): . Smoking Status: Former smoker Past Alcohol Use History: None Reported Additional Past Alcohol Use History / Comment(s): started smoking at age 27, smoked 1/2 ppd quit 2002 Past Drug Use History: None Reported - Past Family History Father Family Medical History: Cancer, Diabetes Mellitus Additional Family Medical History / Comment(s): age 70 from lung cancer Mother Family Medical History: COPD Additional Family Medical History / Comment(s): age 83 emphysema Medications and Allergies Home Medications Medication Instructions Recorded Confirmed Type Metoprolol Tartrate 12.5 mg PO BID 07/21/21 08/29/21 History Midodrine HCl [ProAmatine] 10 mg PO TID 07/21/21 08/29/21 History Spironolactone 25 mg PO DAILY 07/21/21 08/29/21 History metOLazone [Zaroxolyn] 2.5 mg PO DAILY 07/21/21 08/29/21 History Furosemide [Lasix] 40 mg PO DAILY 08/05/21 08/29/21 History Acetaminophen [Tylenol 8 Hour] 650 mg PO Q6H PRN 08/29/21 08/29/21 History Ciprofloxacin HCl [Cipro] 250 mg PO HS 08/29/21 08/29/21 History Insulin Aspart [Insulin Aspart 4 unit SQ ACHS 08/29/21 08/29/21 History Flexpen] Insulin Detemir [Levemir Flextouch 12 units SQ HS 08/29/21 08/29/21 History Pen] Allergies Allergy/AdvReac Type Severity Reaction Status Date / Time Corticosteroids Allergy Unknown Unknown Verified 08/29/21 16:23 (Glucocorticoids) azithromycin [From Zithromax] Allergy Anaphylaxis Verified 08/29/21 16:23 banana Allergy Unknown Verified 08/29/21 16:23 carisoprodol [From Soma] Allergy Unknown Verified 08/29/21 16:23 ciprofloxacin [From Cipro] Allergy Unknown Verified 08/29/21 16:23 cortisone [Cortisone] Allergy Unknown Verified 08/29/21 16:23 cyclobenzaprine HCl Allergy Unknown Verified 08/29/21 16:23 [From Flexeril] latex Allergy Rash/Hives Verified 08/29/21 16:23 Latex, Natural Rubber Allergy Rash/Hives Verified 08/29/21 16:23 levofloxacin [From Levaquin] Allergy Anaphylaxis Verified 08/29/21 16:23 Penicillins Allergy Anaphylaxis Verified 08/29/21 16:23 codeine AdvReac Nausea & Verified 08/29/21 16:23 Vomiting Surgical - Exam Vital Signs Temp Pulse Resp BP Pulse Ox 97.2 F L 71 16 122/51 99 08/29/21 16:04 08/29/21 16:04 08/29/21 16:04 08/29/21 16:04 08/29/21 16:04 Physical exam: General: Well-developed, well-nourished HEENT: Normocephalic, sclerae nonicteric Abdomen: Nontender, nondistended Extremities: Left lower limb amputation with dressing Neuro: Alert and slightly confused Results - Labs 08/31/21 10:37 08/31/21 10:37 Abnormal Lab Results - Last 24 Hours (Table) 08/30/21 08/30/21 08/30/21 Range/Units 11:45 16:48 19:16 WBC (3.8-10.6) k/uL RBC (3.80-5.40) m/uL Hgb (11.4-16.0) gm/dL Hct (34.0-46.0) % Neutrophils # (1.3-7.7) k/uL APTT 50.7 H (22.0-30.0) sec Sodium (137-145) mmol/L Potassium (3.5-5.1) mmol/L Carbon Dioxide (22-30) mmol/L BUN (7-17) mg/dL Creatinine (0.52-1.04) mg/dL Glucose (74-99) mg/dL POC Glucose (mg/dL) 122 H (70-110) mg/dL Calcium (8.4-10.2) mg/dL Magnesium (1.6-2.3) mg/dL Iron 31 L (50-170) ug/dL TIBC 176 L (228-460) ug/dL Transferrin 126.0 L (204.0-354.0) mg/dL AST (14-36) U/L ALT (4-34) U/L Total Protein (6.3-8.2) g/dL Albumin (3.5-5.0) g/dL 08/30/21 08/30/21 08/31/21 Range/Units 19:16 20:30 08:26 WBC (3.8-10.6) k/uL RBC (3.80-5.40) m/uL Hgb (11.4-16.0) gm/dL Hct (34.0-46.0) % Neutrophils # (1.3-7.7) k/uL APTT 60.3 H (22.0-30.0) sec Sodium (137-145) mmol/L Potassium (3.5-5.1) mmol/L Carbon Dioxide (22-30) mmol/L BUN (7-17) mg/dL Creatinine (0.52-1.04) mg/dL Glucose (74-99) mg/dL POC Glucose (mg/dL) 210 H (70-110) mg/dL Calcium (8.4-10.2) mg/dL Magnesium 2.7 H (1.6-2.3) mg/dL Iron (50-170) ug/dL TIBC (228-460) ug/dL Transferrin (204.0-354.0) mg/dL AST (14-36) U/L ALT (4-34) U/L Total Protein (6.3-8.2) g/dL Albumin (3.5-5.0) g/dL 08/31/21 08/31/21 08/31/21 Range/Units 10:37 10:37 11:44 WBC 15.5 H (3.8-10.6) k/uL RBC 3.00 L (3.80-5.40) m/uL Hgb 8.6 L (11.4-16.0) gm/dL Hct 27.5 L (34.0-46.0) % Neutrophils # 12.0 H (1.3-7.7) k/uL APTT (22.0-30.0) sec Sodium 132 L (137-145) mmol/L Potassium 3.3 L (3.5-5.1) mmol/L Carbon Dioxide 20 L (22-30) mmol/L BUN 85 H (7-17) mg/dL Creatinine 2.03 H (0.52-1.04) mg/dL Glucose 106 H (74-99) mg/dL POC Glucose (mg/dL) 127 H (70-110) mg/dL Calcium 7.4 L (8.4-10.2) mg/dL Magnesium 2.6 H (1.6-2.3) mg/dL Iron (50-170) ug/dL TIBC (228-460) ug/dL Transferrin (204.0-354.0) mg/dL AST 653 H (14-36) U/L ALT 390 H (4-34) U/L Total Protein 5.9 L (6.3-8.2) g/dL Albumin 2.9 L (3.5-5.0) g/dL Microbiology - Last 24 Hours (Table) 08/30/21 00:51 Blood Culture - Preliminary Blood No Growth after 24 hours 08/29/21 16:24 Urine Culture - Preliminary Urine,Voided Gram Neg Bacilli Diabetes panel 08/30/21 08/31/21 Range/Units 19:16 10:37 Sodium 132 L (137-145) mmol/L Potassium 3.5 3.3 L (3.5-5.1) mmol/L Chloride 102 (98-107) mmol/L Carbon Dioxide 20 L (22-30) mmol/L BUN 85 H (7-17) mg/dL Creatinine 2.03 H (0.52-1.04) mg/dL Glucose 106 H (74-99) mg/dL Calcium 7.4 L (8.4-10.2) mg/dL AST 653 H (14-36) U/L ALT 390 H (4-34) U/L Alkaline Phosphatase 92 (38-126) U/L Total Protein 5.9 L (6.3-8.2) g/dL Albumin 2.9 L (3.5-5.0) g/dL Calcium panel 08/31/21 Range/Units 10:37 Calcium 7.4 L (8.4-10.2) mg/dL Albumin 2.9 L (3.5-5.0) g/dL Pituitary panel 08/30/21 08/31/21 Range/Units 19:16 10:37 Sodium 132 L (137-145) mmol/L Potassium 3.5 3.3 L (3.5-5.1) mmol/L Chloride 102 (98-107) mmol/L Carbon Dioxide 20 L (22-30) mmol/L BUN 85 H (7-17) mg/dL Creatinine 2.03 H (0.52-1.04) mg/dL Glucose 106 H (74-99) mg/dL Calcium 7.4 L (8.4-10.2) mg/dL Adrenal panel 08/30/21 08/31/21 Range/Units 19:16 10:37 Sodium 132 L (137-145) mmol/L Potassium 3.5 3.3 L (3.5-5.1) mmol/L Chloride 102 (98-107) mmol/L Carbon Dioxide 20 L (22-30) mmol/L BUN 85 H (7-17) mg/dL Creatinine 2.03 H (0.52-1.04) mg/dL Glucose 106 H (74-99) mg/dL Calcium 7.4 L (8.4-10.2) mg/dL Total Bilirubin 0.9 (0.2-1.3) mg/dL AST 653 H (14-36) U/L ALT 390 H (4-34) U/L Alkaline Phosphatase 92 (38-126) U/L Total Protein 5.9 L (6.3-8.2) g/dL Albumin 2.9 L (3.5-5.0) g/dL Assessment and Plan (1) GI bleed Narrative/Plan: 76-year-old female with GI bleed on heparin drip. Continue to hold anticoagulation. Continue antiacid therapy. Continue clear liquids as ordered. Patient may require endoscopy during this hospital stay. We'll reevaluate tomorrow. Current Visit: Yes Status: Acute Code(s): K92.2 - GASTROINTESTINAL HEMORRHAGE, UNSPECIFIED SNOMED Code(s): 27194488
[2021-08-31 16:46] LABS: WBC 15.8 k/uL (3.8-10.6)
[2021-08-31 16:47] LABS: Basophils % (A) 0 %; Eosinophils # (A) 0.1 k/uL (0-0.7); Eosinophils % (A) 1 %; HGB 9.3 gm/dL (11.4-16.0); Hypochromasia Marked; Lymphocytes # (A) 2.1 k/uL (1.0-4.8); Lymphocytes % (A) 13 %; MCH 28.5 pg (25.0-35.0); MCHC 30.9 g/dL (31.0-37.0); MCV 92.1 fL (80.0-100.0); Mean Platelet Volume 10.4; Monocytes % (A) 6 %; Neutrophils # (A) 12.2 k/uL (1.3-7.7); Neutrophils % (A) 77 %; Platelet Count 202 k/uL (150-450); RBC 3.26 m/uL (3.80-5.40); RDW 15.6 % (11.5-15.5)
[2021-08-31 16:48] LABS: Glucose,Whole Blood 160 mg/dL (70-110)
--- NOTE | 2021-08-31 17:24 | CA ---
Transthoracic Echo Report Name: Vicky Nixon Age: 76 Gender: F : 1945 Exam Date: 08/31/2021 08:59 Exam Location: [facility] [facility] Ht (in): 60 Wt (lb): 165 Ordering Physician: Jarad Ram DO Attending/Referring Phys: [employer] Miya Gray, GEMA Procedure CPT: Indications: nstemi Cardiac Hx: Technical Quality: Contrast 1: Total Dose (mL): Contrast 2: Total Dose (mL): MEASUREMENTS (Male / Female) Normal Values 2D ECHO LV Diastolic Diameter PLAX 3.9 cm 4.2 - 5.9 / 3.9 - 5.3 cm IVS Diastolic Thickness 1.0 cm 0.6 - 1.0 / 0.6 - 0.9 cm LA Systolic Diameter LX 4.3 cm 3.0 - 4.0 / 2.7 - 3.8 cm FINDINGS Left Ventricle Normal Left ventricular size, mild wall thickness, left ventricular ejection fraction is estimated at 40-45 %. Right Ventricle Mild pulmonary hypertension. Normal right ventricular size and function. Right Atrium Normal right atrial size. Left Atrium Moderate left atrial dilatation. Mitral Valve [id number] mitral regurgitation. Mitral valve thickened. Aortic Valve Trileaflet aortic valve. Tricuspid Valve [id number] tricuspid regurgitation. Pulmonic Valve Pulmonic valve not well visualized. Pericardium Normal pericardium. Aorta Normal size aortic root and proximal ascending aorta. CONCLUSIONS Reduce LV systolic function ejection fraction 40% Moderate severe mitral and tricuspid regurgitation Previewed by: Dr. Misha Olivares MD (Electronically Signed) Final Date: 31 August 2021 17:23
[2021-08-31 21:20] LABS: Glucose,Whole Blood 98 mg/dL (70-110)
[2021-08-31] MEDS: INSULIN DETEMIR (LEVEMIR) 100 UNIT/ML SYR SQ SCH (21:29)
[2021-08-31] MEDS: PANTOPRAZOLE 40 MG/10 ML VIAL IVP SCH (21:30)
[2021-08-31 21:43] LABS: Basophils % (A) 0 %; Eosinophils # (A) 0.2 k/uL (0-0.7); Eosinophils % (A) 1 %; HCT 28.2 % (34.0-46.0); HGB 8.7 gm/dL (11.4-16.0); Hypochromasia Marked; Lymphocytes # (A) 1.8 k/uL (1.0-4.8); Lymphocytes % (A) 12 %; MCH 28.6 pg (25.0-35.0); MCHC 30.7 g/dL (31.0-37.0); MCV 93.2 fL (80.0-100.0); Mean Platelet Volume 10.9; Monocytes # (A) 0.9 k/uL (0-1.0); Monocytes % (A) 6 %; Neutrophils # (A) 11.5 k/uL (1.3-7.7); Neutrophils % (A) 79 %; Platelet Count 210 k/uL (150-450); RBC 3.03 m/uL (3.80-5.40); RDW 15.3 % (11.5-15.5); WBC 14.6 k/uL (3.8-10.6)
[2021-09-01] MEDS: INSULIN ASPART (NovoLOG) 100 UNIT/ML VIAL SQ SCH ×8 (06:40→20:09)
--- NOTE | 2021-09-01 06:42 | P.PN ---
Subjective Progress Note Date: 09/01/21 Principal diagnosis: Gastrointestinal bleed. Pulmonary consult dated 08/31/2021. 76-year-old female who was initially evaluated in the emergency room on August 29. The patient apparently has a history of coronary disease, atrial fibrillation, diabetes, chronic kidney disease, and recent left below the knee amputation. She was brought to the emergency room, by EMS, from [facility]. She apparently was having chest pain there, and because of that, she was brought into the hospital to be evaluated. She also may have been acting erratically there, and apparently yelling and screaming at the nursing facility. She was recently hospitalized for gangrenous toes on the right foot, and also recently had a left low the knee amputation as well. The patient was admitted and was found to have a non-ST segment elevation myocardial infarction, with initial troponin of 8, increasing up to 24, and then 21. The patient was started on IV heparin, but apparently developed an acute GI bleed, with maroon stools, and a decline in her hemoglobin level. Heparin was discontinued by cardiology. She was also seen by nephrology for renal failure. We are asked to see the patient for possible transfer to intensive care unit. The patient is currently on room air. IV heparin has been discontinued. She's in no acute distress, but she does look pale. She is complaining of abdominal discomfort. Labs include a white count of 15.5, hemoglobin 8.6, hematocrit 27.5, and a platelet count of 207,000. PTT is 60.3. Sodium 132, calcium 3.3, chlorides 102, CO2 20, anion g ap 10, BUN 85, with a creatinine of 2.03. Liver function tests are abnormal with an AST of 653 and an ALT of 390. The patient did have a computed tomography scan of the abdomen and pelvis, which did not show anything acute. Chest x-ray was normal. Progress note dated 09/01/2021. This is a 76-year-old female seen yesterday in consultation. We saw her for abdominal pain and GI bleed. Currently, the patient's doing well. She is on room air. She's getting saline at 75 mL an hour. She may have an EGD today. Her hemoglobin this morning was 8.7. She had an uneventful night. She had a small maroon bowel movement last night. He has been hemodynamically stable. No new labs today as yet. Objective - Vital Signs Vital signs: Vital Signs Temp 97.6 F 09/01/21 04:00 Pulse 60 09/01/21 06:00 Resp 22 09/01/21 06:00 BP 123/61 09/01/21 06:00 Pulse Ox 98 09/01/21 06:00 FiO2 Intake & Output 08/31/21 08/31/21 09/01/21 06:59 18:59 06:59 Intake Total 102.37 375 600 Output Total 1330 570 345 Balance -1227.63 -195 255 Intake: IV 375 600 Sodium Chloride 0.9% 1, 375 600 000 ml @ 75 mls/hr IV . [id number] [facility] Rx#:[id number] Intake, IV Titration 102.37 Amount Heparin Sod,Pork in 0.45% 102.37 NaCl 25,000 unit In 0.45 % NaCl 1 250ml.bag @ 12 UNITS/KG/HR 8.709 mls/hr IV .Q24H [facility] Rx#: [id number] Output: Urine 1330 570 345 Other: Voiding Method Indwelling Catheter Indwelling Catheter Indwelling Catheter # Bowel Movements 1 - Exam No acute distress, oriented 3. Very pale appearing. Currently on room air. HEENT examination is grossly unremarkable. Neck supple. Full range of motion. No adenopathy thyromegaly or neck vein distention. Cardiovascular examination reveals regular rhythm rate. S1-S2 normal. No S3 or S4. No discernible murmur noted. Heart rate 60 bpm. Lungs reveal clear breath sounds. Breath sounds are equal bilaterally. No adventitious lung sounds including wheezes rhonchi or crackles. Abdomen soft, with periumbilical pain on palpation. Bowel sounds are noted. Extremities reveal a relatively recent left BKA, and a right foot which is wrapped, because of gangrenous toes. Skin is pale, with multiple areas of ecchymoses noted. Neurologic examination is brief but nonfocal. - Labs CBC & Chem 7: 08/31/21 21:17 08/31/21 21:17 Labs: Abnormal Lab Results - Last 24 Hours (Table) 08/31/21 08/31/21 08/31/21 Range/Units 08:26 10:37 10:37 WBC 15.5 H (3.8-10.6) k/uL RBC 3.00 L (3.80-5.40) m/uL Hgb 8.6 L (11.4-16.0) gm/dL Hct 27.5 L (34.0-46.0) % MCHC (31.0-37.0) g/dL RDW (11.5-15.5) % Neutrophils # 12.0 H (1.3-7.7) k/uL APTT 60.3 H (22.0-30.0) sec Sodium 132 L (137-145) mmol/L Potassium 3.3 L (3.5-5.1) mmol/L Carbon Dioxide 20 L (22-30) mmol/L BUN 85 H (7-17) mg/dL Creatinine 2.03 H (0.52-1.04) mg/dL Glucose 106 H (74-99) mg/dL POC Glucose (mg/dL) (70-110) mg/dL Calcium 7.4 L (8.4-10.2) mg/dL Magnesium 2.6 H (1.6-2.3) mg/dL AST 653 H (14-36) U/L ALT 390 H (4-34) U/L Total Protein 5.9 L (6.3-8.2) g/dL Albumin 2.9 L (3.5-5.0) g/dL 08/31/21 08/31/21 08/31/21 Range/Units 11:44 16:21 16:46 WBC 15.8 H (3.8-10.6) k/uL RBC 3.26 L (3.80-5.40) m/uL Hgb 9.3 L (11.4-16.0) gm/dL Hct 30.0 L (34.0-46.0) % MCHC 30.9 L (31.0-37.0) g/dL RDW 15.6 H (11.5-15.5) % Neutrophils # 12.2 H (1.3-7.7) k/uL APTT (22.0-30.0) sec Sodium (137-145) mmol/L Potassium (3.5-5.1) mmol/L Carbon Dioxide (22-30) mmol/L BUN (7-17) mg/dL Creatinine (0.52-1.04) mg/dL Glucose (74-99) mg/dL POC Glucose (mg/dL) 127 H 160 H (70-110) mg/dL Calcium (8.4-10.2) mg/dL Magnesium (1.6-2.3) mg/dL AST (14-36) U/L ALT (4-34) U/L Total Protein (6.3-8.2) g/dL Albumin (3.5-5.0) g/dL 08/31/21 Range/Units 21:17 WBC 14.6 H (3.8-10.6) k/uL RBC 3.03 L (3.80-5.40) m/uL Hgb 8.7 L (11.4-16.0) gm/dL Hct 28.2 L (34.0-46.0) % MCHC 30.7 L (31.0-37.0) g/dL RDW (11.5-15.5) % Neutrophils # 11.5 H (1.3-7.7) k/uL APTT (22.0-30.0) sec Sodium (137-145) mmol/L Potassium (3.5-5.1) mmol/L Carbon Dioxide (22-30) mmol/L BUN (7-17) mg/dL Creatinine (0.52-1.04) mg/dL Glucose (74-99) mg/dL POC Glucose (mg/dL) (70-110) mg/dL Calcium (8.4-10.2) mg/dL Magnesium (1.6-2.3) mg/dL AST (14-36) U/L ALT (4-34) U/L Total Protein (6.3-8.2) g/dL Albumin (3.5-5.0) g/dL Microbiology - Last 24 Hours (Table) 08/30/21 00:51 Blood Culture - Preliminary Blood No Growth after 48 hours 08/29/21 16:24 Urine Culture - Final Urine,Voided Escherichia coli Klebsiella pneumoniae Assessment and Plan Assessment: Acute gastrointestinal bleed, in a patient who was recently admitted for non-ST segment elevation myocardial infarction, and was recently on IV heparin. Acute urinary tract infection, secondary to Escherichia coli and Klebsiella pneumoniae. 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 Gangrenous toes, right foot. History of atrial fibrillation. History of CAD, status post stent placement. History of previous myocardial infarction. History of hypertension. History of diabetes, with diabetic end organ involvement. History of chronic kidney disease. Peripheral vascular occlusive disease. Multiple other medical problems and comorbidities. Plan: Plan dated 08/31/2021. The patient will be transferred to the intensive care unit for further monitoring and management. The patient has been seen by both cardiology and by nephrology. Her renal function is actually a bit improved. IV heparin has been discontinued. The patient did have some maroon stools. Her hemoglobin has dropped and she does look pale. Blood pressure and saturation are stable the current time. The patient is a DO NOT INTUBATE patient. Additional recommendations and suggestions are forthcoming. Prognosis is certainly guarded. The patient recently had a left BKA, August 06, by Dr. Loyola. Plan dated 09/01/2021. The patient was transferred to the intensive care unit for further monitoring and management. Her clinical status has remained stable. The patient has had no significant further bleeding. Hemodynamically, the patient is stable. Her urine grew out both Escherichia coli and Klebsiella pneumoniae, both are sensitive to ceftriaxone. The patient may undergo an EGD today. The patient is a DO NOT INTUBATE patient. The patient may be able to be transferred out of the intensive care unit, depending on what they find on EGD. Overall prognosis remains guarded. We will continue to follow make recommendations where appropriate Time with Patient: Less than 30
--- NOTE | 2021-09-01 07:43 | P.PN ---
Subjective Progress Note Date: 09/01/21 Principal diagnosis: Acute coronary syndrome This is a 76-year-old female patient with a past medical history significant for coronary artery disease as well as paroxysmal atrial fibrillation as well as multiple comorbid conditions including history of GI bleeding was brought from an extended care facility to the hospital with a chest discomfort and shortness of breath. She was ruled in for acute coronary syndrome. Also she is in acute on chronic renal failure. The patient was seen yesterday on the floor but because she was having gastrointestinal bleeding with maroon stool she was brought to the intensive care unit. This morning she was seen in the intensive care unit. She is hemodynamically stable so far and she is not on any vasopressors. We don't have hemoglobin this morning. She was on heparin until yesterday which was stopped because it was 48 hours since she was diagnosed with acute coronary syndrome. Currently she is on aspirin and beta chely. She underwent an echo which revealed impaired LV function with evidence of moderate to severe mitral r egurgitation. I would continue a conservative medical approach at this point in the light of not having any chest pain or chest discomfort and also she is hemodynamically stable and also she is in renal failure. Continue further investigation for the gastrointestinal bleeding and continue monitor the hemoglobin. Objective - Vital Signs Vital signs: Vital Signs Temp 97.6 F 09/01/21 04:00 Pulse 60 09/01/21 07:00 Resp 19 09/01/21 07:00 BP 125/55 09/01/21 07:00 Pulse Ox 97 09/01/21 07:00 FiO2 Intake & Output 08/31/21 09/01/21 09/01/21 18:59 06:59 18:59 Intake Total 375 825 75 Output Total 570 575 80 Balance -195 250 -5 Weight 75.3 kg Intake: IV 375 825 75 Sodium Chloride 0.9% 1, 375 825 75 000 ml @ 75 mls/hr IV . [id number] [facility] Rx#:[id number] Output: Urine 570 575 80 Other: Voiding Method Indwelling Catheter Indwelling Catheter - Constitutional General appearance: Present: no acute distress - Respiratory Respiratory: bilateral: diminished - Cardiovascular Rhythm: regular Heart sounds: normal: S1, S2 Abnormal Heart Sounds: Present: systolic murmur - Labs CBC & Chem 7: 08/31/21 21:17 08/31/21 21:17 Labs: Abnormal Lab Results - Last 24 Hours (Table) 08/31/21 08/31/21 08/31/21 Range/Units 08:26 10:37 10:37 WBC 15.5 H (3.8-10.6) k/uL RBC 3.00 L (3.80-5.40) m/uL Hgb 8.6 L (11.4-16.0) gm/dL Hct 27.5 L (34.0-46.0) % MCHC (31.0-37.0) g/dL RDW (11.5-15.5) % Neutrophils # 12.0 H (1.3-7.7) k/uL APTT 60.3 H (22.0-30.0) sec Sodium 132 L (137-145) mmol/L Potassium 3.3 L (3.5-5.1) mmol/L Carbon Dioxide 20 L (22-30) mmol/L BUN 85 H (7-17) mg/dL Creatinine 2.03 H (0.52-1.04) mg/dL Glucose 106 H (74-99) mg/dL POC Glucose (mg/dL) (70-110) mg/dL Calcium 7.4 L (8.4-10.2) mg/dL Magnesium 2.6 H (1.6-2.3) mg/dL AST 653 H (14-36) U/L ALT 390 H (4-34) U/L Total Protein 5.9 L (6.3-8.2) g/dL Albumin 2.9 L (3.5-5.0) g/dL 08/31/21 08/31/21 08/31/21 Range/Units 11:44 16:21 16:46 WBC 15.8 H (3.8-10.6) k/uL RBC 3.26 L (3.80-5.40) m/uL Hgb 9.3 L (11.4-16.0) gm/dL Hct 30.0 L (34.0-46.0) % MCHC 30.9 L (31.0-37.0) g/dL RDW 15.6 H (11.5-15.5) % Neutrophils # 12.2 H (1.3-7.7) k/uL APTT (22.0-30.0) sec Sodium (137-145) mmol/L Potassium (3.5-5.1) mmol/L Carbon Dioxide (22-30) mmol/L BUN (7-17) mg/dL Creatinine (0.52-1.04) mg/dL Glucose (74-99) mg/dL POC Glucose (mg/dL) 127 H 160 H (70-110) mg/dL Calcium (8.4-10.2) mg/dL Magnesium (1.6-2.3) mg/dL AST (14-36) U/L ALT (4-34) U/L Total Protein (6.3-8.2) g/dL Albumin (3.5-5.0) g/dL 08/31/21 Range/Units 21:17 WBC 14.6 H (3.8-10.6) k/uL RBC 3.03 L (3.80-5.40) m/uL Hgb 8.7 L (11.4-16.0) gm/dL Hct 28.2 L (34.0-46.0) % MCHC 30.7 L (31.0-37.0) g/dL RDW (11.5-15.5) % Neutrophils # 11.5 H (1.3-7.7) k/uL APTT (22.0-30.0) sec Sodium (137-145) mmol/L Potassium (3.5-5.1) mmol/L Carbon Dioxide (22-30) mmol/L BUN (7-17) mg/dL Creatinine (0.52-1.04) mg/dL Glucose (74-99) mg/dL POC Glucose (mg/dL) (70-110) mg/dL Calcium (8.4-10.2) mg/dL Magnesium (1.6-2.3) mg/dL AST (14-36) U/L ALT (4-34) U/L Total Protein (6.3-8.2) g/dL Albumin (3.5-5.0) g/dL Microbiology - Last 24 Hours (Table) 08/30/21 00:51 Blood Culture - Preliminary Blood No Growth after 48 hours 08/29/21 16:24 Urine Culture - Final Urine,Voided Escherichia coli Klebsiella pneumoniae Assessment and Plan Assessment: Assessment #1 acute non-ST deviation myocardial infarction #2 blood loss anemia #3 acute on chronic Failure #4 multiple comorbid conditions Plan #1 continue further investigation for the gastrointestinal bleeding #2 continue monitor the hemoglobin #3 continue aspirin and beta chely #4 the echo was reviewed and described above #5 follow-up with the patient
[2021-09-01] MEDS: SODIUM CHLORIDE 0.9% 1,000 ML IV SCH ×2 (07:47→17:10)
[2021-09-01 07:52] LABS: HCT 29.5 % (34.0-46.0); HGB 9.1 gm/dL (11.4-16.0); Hypochromasia Marked; MCH 28.7 pg (25.0-35.0); MCHC 30.7 g/dL (31.0-37.0); MCV 93.5 fL (80.0-100.0); Platelet Count 186 k/uL (150-450); RBC 3.15 m/uL (3.80-5.40); RDW 15.5 % (11.5-15.5)
[2021-09-01] MEDS: ISOSORBIDE MONONITRATE ER 30 MG TAB.ER.24H PO SCH (07:55)
[2021-09-01] MEDS: MIDODRINE 5 MG TAB PO SCH ×3 (07:55→21:13)
[2021-09-01] MEDS: METOPROLOL TARTRATE 12.5 MG TAB PO SCH ×2 (07:55→20:08)
[2021-09-01] MEDS: ASPIRIN 81 MG PO SCH (07:56)
[2021-09-01] MEDS: PANTOPRAZOLE 40 MG/10 ML VIAL IVP SCH ×2 (07:56→20:08)
[2021-09-01 08:08] LABS: Calcium 8.1 mg/dL (8.4-10.2); Potassium 4.2 mmol/L (3.5-5.1)
--- NOTE | 2021-09-01 08:24 | P.PN ---
Subjective Progress Note Date: 08/31/21 Principal diagnosis: Urinary tract infection Patient is a 76-year-old female with multiple comorbidities presenting to the hospital with increasing shortness of breath noticed to have elevated cardiac enzymes and a positive UA concern for UTI with multiple ALLERGIES. On today's evaluation that is 08/31/2021, patient denies having any fever or chills, denies any chest pain shortness of breath or cough no abdominal pain patient apparently has developed bleeding per rectum per the nursing staff and is being moved to the ICU Objective - Vital Signs Vital signs: Vital Signs Temp 97.3 F L 08/31/21 04:00 Pulse 69 08/31/21 04:00 Resp 18 08/31/21 04:00 BP 100/48 08/31/21 04:00 Pulse Ox 95 08/31/21 04:00 FiO2 Intake & Output 08/30/21 08/31/21 08/31/21 18:59 06:59 18:59 Intake Total 85.455 102.37 Output Total 400 1330 250 Balance -314.545 -1227.63 -250 Intake: Intake, IV Titration 85.455 102.37 Amount Heparin Sod,Pork in 0.45% 85.455 102.37 NaCl 25,000 unit In 0.45 % NaCl 1 250ml.bag @ 12 UNITS/KG/HR 8.709 mls/hr IV .Q24H [facility] Rx#: [id number] Output: Urine 400 1330 250 Other: Voiding Method Indwelling Catheter Indwelling Catheter # Bowel Movements 1 - Exam GENERAL DESCRIPTION: An elderly female lying in bed in no distress RESPIRATORY SYSTEM: Unlabored breathing , decreased breath sounds at bases HEART: S1 S2 regular rate and rhythm , ABDOMEN: Soft , no tenderness EXTREMITIES: Right foot wound is currently dressed no drainage on the dressing - Labs CBC & Chem 7: 09/01/21 07:23 09/01/21 07:23 Labs: Abnormal Lab Results - Last 24 Hours (Table) 08/30/21 08/30/21 08/30/21 Range/Units 11:33 11:45 11:45 APTT 75.8 H (22.0-30.0) sec POC Glucose (mg/dL) 162 H (70-110) mg/dL Magnesium (1.6-2.3) mg/dL Iron 31 L (50-170) ug/dL TIBC 176 L (228-460) ug/dL Transferrin 126.0 L (204.0-354.0) mg/dL 08/30/21 08/30/21 08/30/21 Range/Units 16:48 19:16 19:16 APTT 50.7 H (22.0-30.0) sec POC Glucose (mg/dL) 122 H (70-110) mg/dL Magnesium 2.7 H (1.6-2.3) mg/dL Iron (50-170) ug/dL TIBC (228-460) ug/dL Transferrin (204.0-354.0) mg/dL 08/30/21 Range/Units 20:30 APTT (22.0-30.0) sec POC Glucose (mg/dL) 210 H (70-110) mg/dL Magnesium (1.6-2.3) mg/dL Iron (50-170) ug/dL TIBC (228-460) ug/dL Transferrin (204.0-354.0) mg/dL Microbiology - Last 24 Hours (Table) 08/30/21 00:51 Blood Culture - Preliminary Blood No Growth after 24 hours 08/29/21 16:24 Urine Culture - Preliminary Urine,Voided Gram Neg Bacilli Assessment and Plan (1) UTI (urinary tract infection) Current Visit: Yes Status: Acute Code(s): N39.0 - URINARY TRACT INFECTION, SITE NOT SPECIFIED SNOMED Code(s): 58844022 Plan: 1patient presented to hospital with multiple symptoms and this patient did have elevated white count significantly positive UA and indwelling Loyola catheter lactic acidosis UTI last urine culture positive for Klebsiella and E. coli could be the likely pathogen failing outpatient antibiotic therapy. 2patient with multiple antibiotic allergies that would limit the number of antibiotics safe to use. 3patient urine is currently showing gram-negative patient to continue with Rocephin 2 g daily and we'll discontinue daptomycin Time with Patient: Less than 30
[2021-09-01] MEDS ORDERED: SODIUM BICARB 8.4% 50 ML SYR (1 MEQ/ML) IV STA (08:51)
--- NOTE | 2021-09-01 08:52 | P.PN ---
Subjective Patient is seen in follow-up for acute kidney injury on chronic kidney disease. Renal function improving. Had maroon colored bowel movement yesterday and was subsequently transferred to the ICU. Hemoglobin 9.1 this morning. Receiving IV fluids. Nonoliguric. On antibiotics for UTI. Vital signs are stable. General: No acute distress. HEENT: Head exam is unremarkable. LUNGS: Breath sounds decreased. HEART: Rate and Rhythm are regular. ABDOMEN: Soft, no distention. EXTREMITITES: No edema. Objective - Vital Signs Vital signs: Vital Signs Temp 97.6 F 09/01/21 04:00 Pulse 60 09/01/21 07:00 Resp 19 09/01/21 07:00 BP 125/55 09/01/21 07:00 Pulse Ox 97 09/01/21 07:00 FiO2 Intake & Output 08/31/21 09/01/21 09/01/21 18:59 06:59 18:59 Intake Total 375 825 75 Output Total 570 575 80 Balance -195 250 -5 Weight 75.3 kg Intake: IV 375 825 75 Sodium Chloride 0.9% 1, 375 825 75 000 ml @ 75 mls/hr IV . [id number] [facility] Rx#:[id number] Output: Urine 570 575 80 Other: Voiding Method Indwelling Catheter Indwelling Catheter - Labs CBC & Chem 7: 09/01/21 07:23 09/01/21 07:23 Labs: Abnormal Lab Results - Last 24 Hours (Table) 08/31/21 08/31/21 08/31/21 Range/Units 08:26 10:37 10:37 WBC 15.5 H (3.8-10.6) k/uL RBC 3.00 L (3.80-5.40) m/uL Hgb 8.6 L (11.4-16.0) gm/dL Hct 27.5 L (34.0-46.0) % MCHC (31.0-37.0) g/dL RDW (11.5-15.5) % Neutrophils # 12.0 H (1.3-7.7) k/uL APTT 60.3 H (22.0-30.0) sec Sodium 132 L (137-145) mmol/L Potassium 3.3 L (3.5-5.1) mmol/L Carbon Dioxide 20 L (22-30) mmol/L BUN 85 H (7-17) mg/dL Creatinine 2.03 H (0.52-1.04) mg/dL Glucose 106 H (74-99) mg/dL POC Glucose (mg/dL) (70-110) mg/dL Calcium 7.4 L (8.4-10.2) mg/dL Magnesium 2.6 H (1.6-2.3) mg/dL AST 653 H (14-36) U/L ALT 390 H (4-34) U/L Total Protein 5.9 L (6.3-8.2) g/dL Albumin 2.9 L (3.5-5.0) g/dL 08/31/21 08/31/21 08/31/21 Range/Units 11:44 16:21 16:46 WBC 15.8 H (3.8-10.6) k/uL RBC 3.26 L (3.80-5.40) m/uL Hgb 9.3 L (11.4-16.0) gm/dL Hct 30.0 L (34.0-46.0) % MCHC 30.9 L (31.0-37.0) g/dL RDW 15.6 H (11.5-15.5) % Neutrophils # 12.2 H (1.3-7.7) k/uL APTT (22.0-30.0) sec Sodium (137-145) mmol/L Potassium (3.5-5.1) mmol/L Carbon Dioxide (22-30) mmol/L BUN (7-17) mg/dL Creatinine (0.52-1.04) mg/dL Glucose (74-99) mg/dL POC Glucose (mg/dL) 127 H 160 H (70-110) mg/dL Calcium (8.4-10.2) mg/dL Magnesium (1.6-2.3) mg/dL AST (14-36) U/L ALT (4-34) U/L Total Protein (6.3-8.2) g/dL Albumin (3.5-5.0) g/dL 08/31/21 09/01/21 09/01/21 Range/Units 21:17 07:23 07:23 WBC 14.6 H (3.8-10.6) k/uL RBC 3.03 L (3.80-5.40) m/uL Hgb 8.7 L (11.4-16.0) gm/dL Hct 28.2 L (34.0-46.0) % MCHC 30.7 L (31.0-37.0) g/dL RDW (11.5-15.5) % Neutrophils # 11.5 H (1.3-7.7) k/uL APTT (22.0-30.0) sec Sodium 134 L (137-145) mmol/L Potassium (3.5-5.1) mmol/L Carbon Dioxide 17 L (22-30) mmol/L BUN 73 H (7-17) mg/dL Creatinine 1.80 H (0.52-1.04) mg/dL Glucose 114 H (74-99) mg/dL POC Glucose (mg/dL) (70-110) mg/dL Calcium 8.1 L (8.4-10.2) mg/dL Magnesium 2.7 H (1.6-2.3) mg/dL AST (14-36) U/L ALT (4-34) U/L Total Protein (6.3-8.2) g/dL Albumin (3.5-5.0) g/dL 09/01/21 Range/Units 07:23 WBC 12.0 H (3.8-10.6) k/uL RBC 3.15 L (3.80-5.40) m/uL Hgb 9.1 L (11.4-16.0) gm/dL Hct 29.5 L (34.0-46.0) % MCHC 30.7 L (31.0-37.0) g/dL RDW (11.5-15.5) % Neutrophils # (1.3-7.7) k/uL APTT (22.0-30.0) sec Sodium (137-145) mmol/L Potassium (3.5-5.1) mmol/L Carbon Dioxide (22-30) mmol/L BUN (7-17) mg/dL Creatinine (0.52-1.04) mg/dL Glucose (74-99) mg/dL POC Glucose (mg/dL) (70-110) mg/dL Calcium (8.4-10.2) mg/dL Magnesium (1.6-2.3) mg/dL AST (14-36) U/L ALT (4-34) U/L Total Protein (6.3-8.2) g/dL Albumin (3.5-5.0) g/dL Microbiology - Last 24 Hours (Table) 08/30/21 00:51 Blood Culture - Preliminary Blood No Growth after 48 hours 08/29/21 16:24 Urine Culture - Final Urine,Voided Escherichia coli Klebsiella pneumoniae Assessment and Plan Plan: Assessment: 1. Acute kidney injury secondary to ATN secondary to diuresis and infection. Creatinine 3.25 on admission and is down to 1.8 today. No hydronephrosis noted on CAT scan. 2. Chronic kidney disease stage IV secondary to nephrosclerosis with baseline creatinine near 2. 3. E. coli and Klebsiella UTI on antibiotics. 4. Non-ST elevated myocardial infarction. Cardiology following. Echo showed ejection fraction of 40% with moderate to severe mitral and tricuspid regurgitation. 5. Anemia of chronic kidney disease. Iron deficiency noted. On Aranesp. Also concern for GI bleed. Possible scope today. 6. Diabetes mellitus. 7. Metabolic acidosis secondary to acute kidney injury and IV fluids. 8. Hypovolemic hyponatremia improved with IV hydration. Plan: Maintain IV fluids - decrease rate to 50 mL an hour. Avoid nephrotoxins. Cortisol level not low. Maintain IV iron. Add oral bicarb. Continue to monitor renal function and urine output.
[2021-09-01] MEDS: SODIUM FERRIC GLUCONAT-SUCROSE 125 MG in SODIUM CHLORIDE 0.9% 100 ML IVPB SCH (09:10)
[2021-09-01] MEDS: SODIUM BICARBONATE TAB 650 MG TAB PO SCH ×3 (09:10→21:13)
--- NOTE | 2021-09-01 11:10 | P.PN ---
Subjective Progress Note Date: 09/01/21 Principal diagnosis: GI bleeding Overnight the patient had 2 small stools that were maroonish in color. Hemodynamically he has remained stable. Hemoglobin actually increased slightly. Denies abdominal pain. No nausea. Objective - Vital Signs Vital signs: Vital Signs Temp 97.0 F L 09/01/21 08:00 Pulse 62 09/01/21 09:00 Resp 26 H 09/01/21 09:00 BP 125/51 09/01/21 09:00 Pulse Ox 100 09/01/21 09:00 FiO2 Intake & Output 08/31/21 09/01/21 09/01/21 18:59 06:59 18:59 Intake Total 375 825 225 Output Total 570 575 280 Balance -195 250 -55 Weight 75.3 kg Intake: IV 375 825 225 Sodium Chloride 0.9% 1, 375 825 225 000 ml @ 50 mls/hr IV . Q20H [facility] Rx#:[id number] Output: Urine 570 575 280 Other: Voiding Method Indwelling Catheter Indwelling Catheter Indwelling Catheter # Bowel Movements 1 - Exam Abdomen: Soft, nontender, nondistended - Labs CBC & Chem 7: 09/01/21 07:23 09/01/21 07:23 Labs: Abnormal Lab Results - Last 24 Hours (Table) 08/31/21 08/31/21 08/31/21 Range/Units 11:44 16:21 16:46 WBC 15.8 H (3.8-10.6) k/uL RBC 3.26 L (3.80-5.40) m/uL Hgb 9.3 L (11.4-16.0) gm/dL Hct 30.0 L (34.0-46.0) % MCHC 30.9 L (31.0-37.0) g/dL RDW 15.6 H (11.5-15.5) % Neutrophils # 12.2 H (1.3-7.7) k/uL Sodium (137-145) mmol/L Carbon Dioxide (22-30) mmol/L BUN (7-17) mg/dL Creatinine (0.52-1.04) mg/dL Glucose (74-99) mg/dL POC Glucose (mg/dL) 127 H 160 H (70-110) mg/dL Calcium (8.4-10.2) mg/dL Magnesium (1.6-2.3) mg/dL 08/31/21 09/01/21 09/01/21 Range/Units 21:17 07:23 07:23 WBC 14.6 H (3.8-10.6) k/uL RBC 3.03 L (3.80-5.40) m/uL Hgb 8.7 L (11.4-16.0) gm/dL Hct 28.2 L (34.0-46.0) % MCHC 30.7 L (31.0-37.0) g/dL RDW (11.5-15.5) % Neutrophils # 11.5 H (1.3-7.7) k/uL Sodium 134 L (137-145) mmol/L Carbon Dioxide 17 L (22-30) mmol/L BUN 73 H (7-17) mg/dL Creatinine 1.80 H (0.52-1.04) mg/dL Glucose 114 H (74-99) mg/dL POC Glucose (mg/dL) (70-110) mg/dL Calcium 8.1 L (8.4-10.2) mg/dL Magnesium 2.7 H (1.6-2.3) mg/dL 09/01/21 Range/Units 07:23 WBC 12.0 H (3.8-10.6) k/uL RBC 3.15 L (3.80-5.40) m/uL Hgb 9.1 L (11.4-16.0) gm/dL Hct 29.5 L (34.0-46.0) % MCHC 30.7 L (31.0-37.0) g/dL RDW (11.5-15.5) % Neutrophils # (1.3-7.7) k/uL Sodium (137-145) mmol/L Carbon Dioxide (22-30) mmol/L BUN (7-17) mg/dL Creatinine (0.52-1.04) mg/dL Glucose (74-99) mg/dL POC Glucose (mg/dL) (70-110) mg/dL Calcium (8.4-10.2) mg/dL Magnesium (1.6-2.3) mg/dL Microbiology - Last 24 Hours (Table) 08/30/21 00:51 Blood Culture - Preliminary Blood No Growth after 48 hours 08/29/21 16:24 Urine Culture - Final Urine,Voided Escherichia coli Klebsiella pneumoniae Assessment and Plan (1) GI bleed Narrative/Plan: 76-year-old female with recent GI bleed. Options again discussed with the patient. She would like to hold off on any procedures if possible. Will begin clear liquids. Repeat hemoglobin tomorrow. If maroon-colored stools persist we'll plan upper and possible lower endoscopy. Continue antiacid therapy for now. Current Visit: Yes Status: Acute Code(s): K92.2 - GASTROINTESTINAL HEMORRHAGE, UNSPECIFIED SNOMED Code(s): 38378342
--- NOTE | 2021-09-01 11:34 | P.CONS ---
History of Present Illness - Reason for Consult Consult date: 09/01/21 wound care - History of Present Illness This is a 76-year-old patient known to the wound care center who sees Dr. Raymundo. Patient recently had a left below the knee amputation. Patient currently has a ulceration to the right great toe. Original cause of wound was Not Known. The date acquired was: 03/15/2021. The wound has been in treatment 12 weeks. The wound is currently classified as a Full Thickness Without Exposed S upport Structures wound with etiologies of Arterial Insufficiency Ulcer and Diabetic Wound/Ulcer of the Lower Extremity and is located on the Right Toe Great. The wound measures 4cm length x 2cm width x 0.4cm depth; 6.283cm^2 area and 2.513cm^3 volume. There is Fat Layer (Subcutaneous Tissue) exposed. There is no tunneling or undermining noted. There is a small amount of serosanguineous drainage noted. The wound margin is indistinct and nonvisible. There is small (1-33%) red granulation within the wound bed. There is a large (67-100%) amount of necrotic tissue within the wound bed including Eschar and Adherent Slough. The periwound skin appearance exhibited: Scarring, Dry/Scaly, Rubor, Erythema. The periwound skin appearance did not exhibit: Callus, Crepitus, Excoriation, Induration, Rash, Maceration, Atrophie Norma, Cyanosis, Ecchymosis, Hemosiderin Staining, Mottled, Pallor. The surrounding wound skin color is noted with erythema which is circumferential. Periwound temperature was noted as No Abnormality. The periwound has tenderness on palpation. Patient's past medical history significant for atrial fibrillation, coronary artery disease, heart failure, diabetes, hypertension, myocardial infarction, osteoarthritis, renal disease, vascular disease Review Of Systems: Constitutional: No fever, no chills, no night sweats. No weight change. No weakness, fatigue or lethargy. No daytime sleepiness. Integumentary:reports wounds, no lesions. No rash or pruritus. No unusual bruising. No change in hair or nails. Physical exam: General Appearance: Alert, cooperative, no distress, appears stated age. Skin: See HPI all other Skin color, texture, tugor normal, no rashes or lesions. Neurologic: Alert oriented x3 Assessment: 1. 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 Diabetes mellitus with foot ulceration 3. Arthrosclerosis of [place] arteries of other extremities with ulceration Plan: 1. Apply honey gel, dry gauze, rolled gauze and secured paper tape. Change Tuesday. Thank you for the consultation any questions with contact the wound care center DNP note has been reviewed and discussed with Dr. Truong and the impression and plan of care has been directed as dictated. Past Medical History Past Medical History: Atrial Fibrillation, Coronary Artery Disease (CAD), Chest Pain / Angina, Heart Failure, Diabetes Mellitus, Eye Disorder, Hypertension, Myocardial Infarction (MN), Osteoarthritis (OA), Pneumonia, Renal Disease, Vascular Disorder Additional Past Medical History / Comment(s): LEFT FOOT HAS BECOME GANGEROUS PER PATIENT. Pt recently admitted to [facility] on 06/16/21 with L foot cellulitis/L 4th toe amp and had peripheral vascular procedures with post hematoma and acute blood loss anemia. Other hx: NIDDM type II, neuropathy bilateral feet, 01-03-14 MN/cardiac arrest/resp failure/intubation, CKD, chronic anemia, mild thrombocytopenia, PAD, UTIs, unsteady gait, FALLS, past L eye retinal bleed with surgery. Last Myocardial Infarction Date:: 01-03-14 History of Any Multi-Drug Resistant Organisms: None Reported Past Surgical History: Heart Catheterization, Heart Catheterization With Stent Additional Past Surgical History / Comment(s): 06/18/21 L 4th toe amputation, 06/2021 L fempop angiogram/L SFA atherectomy/PTBA, stent RCA 01-07-14, stent LAD 02/14/2019, L retinal bleed with surgery, bilateral cataract removal/lens impl ants, colonoscopy, LT BKA Past Anesthesia/Blood Transfusion Reactions: No Reported Reaction Date of Last Stent Placement:: 2018 Past Psychological History: No Psychological Hx Reported Additional Psychological History / Comment(s): . Smoking Status: Former smoker Past Alcohol Use History: None Reported Additional Past Alcohol Use History / Comment(s): started smoking at age 27, smoked 1/2 ppd quit 2002 Past Drug Use History: None Reported - Past Family History Father Family Medical History: Cancer, Diabetes Mellitus Additional Family Medical History / Comment(s): age 70 from lung cancer Mother Family Medical History: COPD Additional Family Medical History / Comment(s): age 83 emphysema Medications and Allergies Home Medications Medication Instructions Recorded Confirmed Type Metoprolol Tartrate 12.5 mg PO BID 07/21/21 08/29/21 History Midodrine HCl [ProAmatine] 10 mg PO TID 07/21/21 08/29/21 History Spironolactone 25 mg PO DAILY 07/21/21 08/29/21 History metOLazone [Zaroxolyn] 2.5 mg PO DAILY 07/21/21 08/29/21 History Furosemide [Lasix] 40 mg PO DAILY 08/05/21 08/29/21 History Acetaminophen [Tylenol 8 Hour] 650 mg PO Q6H PRN 08/29/21 08/29/21 History Ciprofloxacin HCl [Cipro] 250 mg PO HS 08/29/21 08/29/21 History Insulin Aspart [Insulin Aspart 4 unit SQ ACHS 08/29/21 08/29/21 History Flexpen] Insulin Detemir [Levemir Flextouch 12 units SQ HS 08/29/21 08/29/21 History Pen] Allergies Allergy/AdvReac Type Severity Reaction Status Date / Time Corticosteroids Allergy Unknown Unknown Verified 08/29/21 16:23 (Glucocorticoids) azithromycin [From Zithromax] Allergy Anaphylaxis Verified 08/29/21 16:23 banana Allergy Unknown Verified 08/29/21 16:23 carisoprodol [From Soma] Allergy Unknown Verified 08/29/21 16:23 ciprofloxacin [From Cipro] Allergy Unknown Verified 08/29/21 16:23 cortisone [Cortisone] Allergy Unknown Verified 08/29/21 16:23 cyclobenzaprine HCl Allergy Unknown Verified 08/29/21 16:23 [From Flexeril] latex Allergy Rash/Hives Verified 08/29/21 16:23 Latex, Natural Rubber Allergy Rash/Hives Verified 08/29/21 16:23 levofloxacin [From Levaquin] Allergy Anaphylaxis Verified 08/29/21 16:23 Penicillins Allergy Anaphylaxis Verified 08/29/21 16:23 codeine AdvReac Nausea & Verified 08/29/21 16:23 Vomiting Physical Exam Vitals: Vital Signs Temp Pulse Pulse Pulse Resp BP BP 09/01/21 09:00 62 26 H 125/51 09/01/21 08:00 97.0 F L 61 8 L 114/47 09/01/21 07:00 60 19 125/55 09/01/21 06:00 60 22 123/61 09/01/21 05:00 60 22 122/46 09/01/21 04:00 97.6 F 61 16 123/57 09/01/21 03:00 61 12 107/57 09/01/21 02:00 59 L 16 108/55 09/01/21 01:00 61 12 109/51 09/01/21 00:00 97.6 F 61 20 109/54 08/31/21 23:13 60 18 107/75 08/31/21 23:00 65 18 108/56 08/31/21 22:30 63 20 108/58 08/31/21 22:00 65 23 101/59 08/31/21 21:30 66 22 101/72 08/31/21 21:00 68 18 111/70 08/31/21 20:30 68 20 100/58 08/31/21 20:00 97.8 F 64 16 109/46 08/31/21 19:30 61 21 104/50 08/31/21 19:00 59 L 19 110/61 08/31/21 18:30 58 L 18 104/63 08/31/21 18:00 96.9 F L 58 L 9 L 105/43 08/31/21 17:30 57 L 15 125/53 08/31/21 17:00 59 L 17 120/51 08/31/21 16:30 60 19 121/55 08/31/21 16:00 94.4 F L 59 L 18 114/81 08/31/21 15:50 58 L 17 114/81 08/31/21 15:40 58 L 16 114/81 08/31/21 15:30 57 L 18 109/48 114/81 08/31/21 15:22 60 17 08/31/21 15:00 57 L 96 20 109/48 08/31/21 14:30 108/89 08/31/21 14:00 58 L 21 108/66 08/31/21 13:30 58 L 13 104/55 08/31/21 13:15 98.1 F 59 L 16 110/53 08/31/21 12:00 60 16 110/64 Pulse Ox 09/01/21 09:00 100 09/01/21 08:00 96 09/01/21 07:00 97 09/01/21 06:00 98 09/01/21 05:00 98 09/01/21 04:00 98 09/01/21 03:00 99 09/01/21 02:00 95 09/01/21 01:00 100 09/01/21 00:00 97 08/31/21 23:13 97 08/31/21 23:00 98 08/31/21 22:30 96 08/31/21 22:00 96 08/31/21 21:30 95 08/31/21 21:00 97 08/31/21 20:30 96 08/31/21 20:00 94 L 08/31/21 19:30 99 08/31/21 19:00 98 08/31/21 18:30 99 08/31/21 18:00 98 08/31/21 17:30 100 08/31/21 17:00 99 08/31/21 16:30 99 08/31/21 16:00 99 08/31/21 15:50 100 08/31/21 15:40 99 08/31/21 15:30 100 08/31/21 15:22 98 08/31/21 15:00 96 08/31/21 14:30 08/31/21 14:00 98 08/31/21 13:30 97 08/31/21 13:15 97 08/31/21 12:00 100 Intake and Output 08/31/21 09/01/21 09/01/21 22:59 06:59 14:59 Intake Total 600 600 225 Output Total 500 395 280 Balance 100 205 -55 Intake: IV 600 600 225 Sodium Chloride 0.9% 1, 600 600 225 000 ml @ 50 mls/hr IV . Q20H COUNTS INCLUDE 234 BEDS AT THE [facility] Rx#:[id number] Output: Urine 500 395 280 Other: Voiding Method Indwelling Catheter Indwelling Catheter Indwelling Catheter # Bowel Movements 1 Weight 75.3 kg Results CBC & Chem 7: 09/01/21 07:23 09/01/21 07:23 Labs: Abnormal Lab Results - Last 24 Hours (Table) 08/31/21 08/31/21 08/31/21 Range/Units 11:44 16:21 16:46 WBC 15.8 H (3.8-10.6) k/uL RBC 3.26 L (3.80-5.40) m/uL Hgb 9.3 L (11.4-16.0) gm/dL Hct 30.0 L (34.0-46.0) % MCHC 30.9 L (31.0-37.0) g/dL RDW 15.6 H (11.5-15.5) % Neutrophils # 12.2 H (1.3-7.7) k/uL Sodium (137-145) mmol/L Carbon Dioxide (22-30) mmol/L BUN (7-17) mg/dL Creatinine (0.52-1.04) mg/dL Glucose (74-99) mg/dL POC Glucose (mg/dL) 127 H 160 H (70-110) mg/dL Calcium (8.4-10.2) mg/dL Magnesium (1.6-2.3) mg/dL 08/31/21 09/01/21 09/01/21 Range/Units 21:17 07:23 07:23 WBC 14.6 H (3.8-10.6) k/uL RBC 3.03 L (3.80-5.40) m/uL Hgb 8.7 L (11.4-16.0) gm/dL Hct 28.2 L (34.0-46.0) % MCHC 30.7 L (31.0-37.0) g/dL RDW (11.5-15.5) % Neutrophils # 11.5 H (1.3-7.7) k/uL Sodium 134 L (137-145) mmol/L Carbon Dioxide 17 L (22-30) mmol/L BUN 73 H (7-17) mg/dL Creatinine 1.80 H (0.52-1.04) mg/dL Glucose 114 H (74-99) mg/dL POC Glucose (mg/dL) (70-110) mg/dL Calcium 8.1 L (8.4-10.2) mg/dL Magnesium 2.7 H (1.6-2.3) mg/dL 09/01/21 Range/Units 07:23 WBC 12.0 H (3.8-10.6) k/uL RBC 3.15 L (3.80-5.40) m/uL Hgb 9.1 L (11.4-16.0) gm/dL Hct 29.5 L (34.0-46.0) % MCHC 30.7 L (31.0-37.0) g/dL RDW (11.5-15.5) % Neutrophils # (1.3-7.7) k/uL Sodium (137-145) mmol/L Carbon Dioxide (22-30) mmol/L BUN (7-17) mg/dL Creatinine (0.52-1.04) mg/dL Glucose (74-99) mg/dL POC Glucose (mg/dL) (70-110) mg/dL Calcium (8.4-10.2) mg/dL Magnesium (1.6-2.3) mg/dL Microbiology - Last 24 Hours (Table) 08/30/21 00:51 Blood Culture - Preliminary Blood No Growth after 48 hours 08/29/21 16:24 Urine Culture - Final Urine,Voided Escherichia coli Klebsiella pneumoniae Assessment and Plan (1) Non-pressure chronic ulcer of other part of right foot with fat layer exposed Current Visit: Yes Status: Acute Code(s): L97.512 - NON-PRS CHRONIC ULCER OTH PRT RIGHT FOOT W FAT LAYER EXPOSED SNOMED Code(s): 073172432 (2) Type 2 diabetes mellitus with foot ulcer Current Visit: Yes Status: Acute Code(s): E11.621 - TYPE 2 DIABETES MELLITUS WITH FOOT ULCER; L97.509 - NON-PRESSURE CHRONIC ULCER OTH PRT UNSP FOOT W UNSP SEVERITY SNOMED Code(s): 261136960 (3) Atherosclerosis of [place] arteries of other extremities with ulceration Current Visit: Yes Status: Acute Code(s): I70.25 - ATHSCL LITTLE TRAVERSE ARTERIES OF EXTREMITIES W ULCERATION SNOMED Code(s): 50222066
[2021-09-01 12:04] LABS: Glucose,Whole Blood 122 mg/dL (70-110)
[2021-09-01 16:26] LABS: Glucose,Whole Blood 136 mg/dL (70-110)
[2021-09-01] MEDS: ACETAMINOPHEN TAB 325 MG TAB PO PRN (17:45)
[2021-09-01 20:06] LABS: Glucose,Whole Blood 189 mg/dL (70-110)
[2021-09-01] MEDS: INSULIN DETEMIR (LEVEMIR) 100 UNIT/ML SYR SQ SCH (20:08)
--- NOTE | 2021-09-01 22:51 | P.PN ---
Subjective Progress Note Date: 08/31/21 HISTORY OF PRESENT ILLNESS: This is a 76-year-old female with a previous medical history signif icant for coronary artery disease status post PCI of the RCA back in 2013 LAD in 2019, history of peripheral vascular occlusive disease status post left foot gangrene and prior left fourth toe amputation followed by a left below-knee amputation that was done by Dr. Loyola recently, history of diabetes mellitus type 2 diabetic polyneuropathy, history of hypertension and hypertensive cardiovascular disease, hyperlipidemia, paroxysmal atrial fibrillation, history of chronic kidney disease stage for her GFR was around 23 has been under the care of nephrology, history of anemia of chronic kidney disease, history of medical debility, with other chronic medical issues patient was recently hospitalized at the [facility] after she developed to have a significant gangrenous changes of the left foot and she underwent left below-knee amputation that was done by Dr. Loyola and the patient was sent to [facility] developed to have a significant urinary retention requiring Loyola micki terization and at that time she was diagnosed with a Klebsiella pneumonia UTI as well as E. coli UTI however the patient has numerous ALLERGIES and she was placed on ciprofloxacin because ran out of options for her 250 mg orally twice every day patient did receive either 1 or 2 doses of that medicatio, patient yesterday developed to have a significant left sided chest pain associated with increased shortness of breath, she was screaming in her room yelling for help, nursing staff contacted me and I refer the patient go to the emergency department at [facility] she was found to have a troponin of 8 she was found to have an acute kidney injury and top of chronic kidney disease with se chris leukocytosis with a white count of 20,000, and significant urinary tract infection she was started on Cubicin she was given 1 dose of 480 mg and that switch to 300 mg IV piggyback every 48 hours due to the creatinine clearance, the patient was admitted to the hospital with heparin drip on board, nephrology consultation, cardiology consultation, ID consultation, patient also was noticed to have a bloody blister to the medial aspect of her left inner knee, she also does appear to have a a a dry gangrenous changes to the right big toe. 08/31: Patient is laying down in bed she is complaining of generalized weakness, she has poor appetite, or mouth is very dry, she continues to be in the ICU, she was seen earlier by Dr. enriquez the plan is to monitor the patient rate closely she may need to go for an EGD if she continues to have some more bleeding. Otherwise we will continue with conservative management, prognosis continue to be guarded Dr. richard about her poor prognosis however the patient at this time is not ready for hospice. REVIEW OF SYSTEMS: Constitutional: No documented fever, no chills, no night sweats. No weight change. positive for weakness, fatigue or lethargy. No daytime sleepiness. HEENT: No headache. positive for blurred vision or double vision, no loss of v ision. No loss of Hearing, no ringing in the ears, no dizziness. No nasal drainage or congestion. No epistaxis. No sore throat. Lungs: positive for shortness of breath, no cough, no sputum production. No wheezing. Reports dyspnea with activity. Cardiovascular: positive for chest pain, no lower extremity edema. No palpitations. No paroxysmal nocturnal dyspnea. No orthopnea. No lightheaded ness or dizziness. No syncopal episodes. Abdominal: Reports no abdominal pain. No nausea, vomiting. No diarrhea. No constipation. No bloody or tarry stools reports loss of appetite. Genitourinary: positive for dysuria, increased frequency,does have Loyola catheter in place due to urinary retention Musculoskeletal: No myalgias. positive for muscle weakness, positive for gait dysfunction, no frequent falls. No back pain. No neck pain. Integumentary: S/P left BKA and there is bloody blister on the inner left knee, also there is dry gangrenous changes to the right big toe Neurologic: No aphasia. No facial droop. No change in mentation. No head injury. No headache. No paralysis. Psychiatric: No depression. No anxiety. No mood swings. Endocrine: abnormal blood sugars. No weight change. PHYSICAL EXAMINATION: General: 76-year-old female laying down in bed in no acute distress however she appears to be generally weak. HEENT: Head is atraumatic, normocephalic, pupils were equal round reactive to light and recommendation, extraocular muscle movement were intact, sclera nonicteric, conjunctivae were pale, mucous membranes of the mouth are somewhat dry. Neck: Supple, no JVP, decreased carotid upstroke bilaterally, no lymphadenopathy. Chest: Decreased breath sounds at the bases, few rhonchi, no expiratory wheezes, no chest wall tenderness, no intercostal retractions. Heart: First heart sound is normal, second heart sounds normal there is systolic ejection murmur 2/6. Sternal border. Abdomen: Soft, nontender, nondistended, positive bowel sounds. Extremities: There is left below-knee amputation, wound appears to be healing well approximated very well, there is a small bloody blister to the medial aspect of the left knee, right foot decreased pulses with right big toe dry gangrene. Neurologic examination: Patient is awake alert and oriented X3 , cranial nerves II-12 appear grossly intact, muscle power were 4 out of 5 in upper extremities and 3 out of 5 in bilateral lower extremities, deep tendon reflexes normal bilaterally. ASSESSMENT AND PLAN: 1. Acute non-ST elevation GA. continue metoprolol 12.5 mg orally twice every day, consider adding atorvastatin 40 mg once every day. Continue conservative approach patient is not a candidate for aggressive measures 2. Acute kidney injury and top of chronic kidney disease stage IV. Likely related to acute tubular necrosis and decreased effective blood flow to the kidneys. Continue IV fluid resuscitation, patient is not a candidate for hemodialysis, she does not want hemodialysis either. 3. Severe leukocytosis secondary to urinary tract infection with SIRS. Continue patient on ceftriaxone 2 g IV piggyback every 24 hours, urine culture showed evidence of Klebsiella pneumoniae and E. coli that is sensitive to ceftriaxone 4. Hypertension and hypertensive cardiovascular disease. Continue patient on Lopressor 12.5 mg orally twice every day. 5. Anemia of chronic kidney disease. Monitor the patient's CBC very closely continue patient on Aranesp 40 MC Kai subcutaneously every 7 days. 6. Diabetes mellitus type 2 with diabetic polyneuropathy. Continue patient on Levemir 8 units as well as slight scale insulin. 7. Hyperlipidemia. Start the patient on atorvastatin 40 mg orally once every day. 8. Peripheral vascular disease status post left below-knee amputation. Stable at this time. 9. Right big toe dry gangrene. Wound care consult. 10. Elevated liver function tests likely related to surgeries and possible shock liver we'll repeat CMP in the next 24 hours. 11. Recent Klebsiella pneumoniae UTI/E. coli UTI continue ceftriaxone. 12. DVT prophylaxis. Patient is off anticoagualtion due to GI bleed. 13. GI Prophylaxis. Continue patient on Protonix 40 mg IVP bid 14. Overall prognosis is dismal. Objective - Vital Signs Vital signs: Vital Signs Temp 96.9 F L 08/31/21 18:00 Pulse 58 L 08/31/21 18:00 Resp 9 L 08/31/21 18:00 BP 105/43 08/31/21 18:00 Pulse Ox 98 08/31/21 18:00 FiO2 Intake & Output 08/30/21 08/31/21 08/31/21 18:59 06:59 18:59 Intake Total 85.455 102.37 225 Output Total 400 1330 510 Balance -314.545 -1227.63 -285 Intake: IV 225 Sodium Chloride 0.9% 1, 225 000 ml @ 75 mls/hr IV . [id number] [facility] Rx#:[id number] Intake, IV Titration 85.455 102.37 Amount Heparin Sod,Pork in 0.45% 85.455 102.37 NaCl 25,000 unit In 0.45 % NaCl 1 250ml.bag @ 12 UNITS/KG/HR 8.709 mls/hr IV .Q24H [facility] Rx#: [id number] Output: Urine 400 1330 510 Other: Voiding Method Indwelling Catheter Indwelling Catheter Indwelling Catheter # Bowel Movements 1 - Labs CBC & Chem 7: 09/01/21 07:23 09/01/21 07:23 Labs: Abnormal Lab Results - Last 24 Hours (Table) 08/30/21 08/30/21 08/30/21 Range/Units 19:16 19:16 20:30 WBC (3.8-10.6) k/uL RBC (3.80-5.40) m/uL Hgb (11.4-16.0) gm/dL Hct (34.0-46.0) % MCHC (31.0-37.0) g/dL RDW (11.5-15.5) % Neutrophils # (1.3-7.7) k/uL APTT 50.7 H (22.0-30.0) sec Sodium (137-145) mmol/L Potassium (3.5-5.1) mmol/L Carbon Dioxide (22-30) mmol/L BUN (7-17) mg/dL Creatinine (0.52-1.04) mg/dL Glucose (74-99) mg/dL POC Glucose (mg/dL) 210 H (70-110) mg/dL Calcium (8.4-10.2) mg/dL Magnesium 2.7 H (1.6-2.3) mg/dL AST (14-36) U/L ALT (4-34) U/L Total Protein (6.3-8.2) g/dL Albumin (3.5-5.0) g/dL 08/31/21 08/31/21 08/31/21 Range/Units 08:26 10:37 10:37 WBC 15.5 H (3.8-10.6) k/uL RBC 3.00 L (3.80-5.40) m/uL Hgb 8.6 L (11.4-16.0) gm/dL Hct 27.5 L (34.0-46.0) % MCHC (31.0-37.0) g/dL RDW (11.5-15.5) % Neutrophils # 12.0 H (1.3-7.7) k/uL APTT 60.3 H (22.0-30.0) sec Sodium 132 L (137-145) mmol/L Potassium 3.3 L (3.5-5.1) mmol/L Carbon Dioxide 20 L (22-30) mmol/L BUN 85 H (7-17) mg/dL Creatinine 2.03 H (0.52-1.04) mg/dL Glucose 106 H (74-99) mg/dL POC Glucose (mg/dL) (70-110) mg/dL Calcium 7.4 L (8.4-10.2) mg/dL Magnesium 2.6 H (1.6-2.3) mg/dL AST 653 H (14-36) U/L ALT 390 H (4-34) U/L Total Protein 5.9 L (6.3-8.2) g/dL Albumin 2.9 L (3.5-5.0) g/dL 08/31/21 08/31/21 08/31/21 Range/Units 11:44 16:21 16:46 WBC 15.8 H (3.8-10.6) k/uL RBC 3.26 L (3.80-5.40) m/uL Hgb 9.3 L (11.4-16.0) gm/dL Hct 30.0 L (34.0-46.0) % MCHC 30.9 L (31.0-37.0) g/dL RDW 15.6 H (11.5-15.5) % Neutrophils # 12.2 H (1.3-7.7) k/uL APTT (22.0-30.0) sec Sodium (137-145) mmol/L Potassium (3.5-5.1) mmol/L Carbon Dioxide (22-30) mmol/L BUN (7-17) mg/dL Creatinine (0.52-1.04) mg/dL Glucose (74-99) mg/dL POC Glucose (mg/dL) 127 H 160 H (70-110) mg/dL Calcium (8.4-10.2) mg/dL Magnesium (1.6-2.3) mg/dL AST (14-36) U/L ALT (4-34) U/L Total Protein (6.3-8.2) g/dL Albumin (3.5-5.0) g/dL Microbiology - Last 24 Hours (Table) 08/30/21 00:51 Blood Culture - Preliminary Blood No Growth after 24 hours 08/29/21 16:24 Urine Culture - Preliminary Urine,Voided Gram Neg Bacilli
--- NOTE | 2021-09-01 22:59 | P.PN ---
Subjective Progress Note Date: 09/01/21 HISTORY OF PRESENT ILLNESS: This is a 76-year-old female with a previous medical history signif icant for coronary artery disease status post PCI of the RCA back in 2013 LAD in 2019, history of peripheral vascular occlusive disease status post left foot gangrene and prior left fourth toe amputation followed by a left below-knee amputation that was done by Dr. Loyola recently, history of diabetes mellitus type 2 diabetic polyneuropathy, history of hypertension and hypertensive cardiovascular disease, hyperlipidemia, paroxysmal atrial fibrillation, history of chronic kidney disease stage for her GFR was around 23 has been under the care of nephrology, history of anemia of chronic kidney disease, history of medical debility, with other chronic medical issues patient was recently hospitalized at the [facility] after she developed to have a significant gangrenous changes of the left foot and she underwent left below-knee amputation that was done by Dr. Loyola and the patient was sent to [facility] developed to have a significant urinary retention requiring Loyola micki terization and at that time she was diagnosed with a Klebsiella pneumonia UTI as well as E. coli UTI however the patient has numerous ALLERGIES and she was placed on ciprofloxacin because ran out of options for her 250 mg orally twice every day patient did receive either 1 or 2 doses of that medicatio, patient yesterday developed to have a significant left sided chest pain associated with increased shortness of breath, she was screaming in her room yelling for help, nursing staff contacted me and I refer the patient go to the emergency department at [facility] she was found to have a troponin of 8 she was found to have an acute kidney injury and top of chronic kidney disease with se chris leukocytosis with a white count of 20,000, and significant urinary tract infection she was started on Cubicin she was given 1 dose of 480 mg and that switch to 300 mg IV piggyback every 48 hours due to the creatinine clearance, the patient was admitted to the hospital with heparin drip on board, nephrology consultation, cardiology consultation, ID consultation, patient also was noticed to have a bloody blister to the medial aspect of her left inner knee, she also does appear to have a a a dry gangrenous changes to the right big toe. 08/31: Patient is laying down in bed she is complaining of generalized weakness, she has poor appetite, or mouth is very dry, she continues to be in the ICU, she was seen earlier by Dr. enriquez the plan is to monitor the patient rate closely she may need to go for an EGD if she continues to have some more bleeding. Otherwise we will continue with conservative management, prognosis continue to be guarded Dr. richard about her poor prognosis however the patient at this time is not ready for hospice. 09/01: Patient hemoglobin appears to be stable at this time, patient has been seen in consultation by general surgery, no procedure is planned unless the hemoglobin is dropping or if the patient continues to have some more GI bleed, she is currently off heparin however she is currently on aspirin 81 mg once every day, she is maintained on metoprolol 12.5 mg twice every day, she has been seen by cardiology as well as pulmonary medicine along with infectious disease, she seems to be tolerating ceftriaxone 2 g IV piggyback every 24 hours well, we will continue to monitor the patient very closely, her creatinine is improving, her CO2 is improving, she has been on sodium bicarbonate 650 mg orally twice every day, nephrology is following as well REVIEW OF SYSTEMS: Constitutional: No documented fever, no chills, no night sweats. No weight change. positive for weakness, fatigue or lethargy. No daytime sleepiness. HEENT: No headache. positive for blurred vision or double vision, no loss of vision. No loss of Hearing, no ringing in the ears, no dizziness. No nasal drainage or congestion. No epistaxis. No sore throat. Lungs: positive for shortness of breath, no cough, no sputum production. No wheezing. Reports dyspnea with activity. Cardiovascular: positive for chest pain, no lower extremity edema. No palpitations. No paroxysmal nocturnal dyspnea. No orthopnea. No lightheadedness or dizziness. No syncopal episodes. Abdominal: Reports no abdominal pain. No nausea, vomiting. No diarrhea. No constipation. No bloody or tarry stools reports loss of appetite. Genitourinary: positive for dysuria, increased frequency,does have Loyola catheter in place due to urinary retention Musculoskeletal: No myalgias. positive for muscle weakness, positive for gait dysfunction, no frequent falls. No back pain. No neck pain. Integumentary: S/P left BKA and there is bloody blister on the inner left knee, also there is dry gangrenous changes to the right big toe Neurologic: No aphasia. No facial droop. No change in mentation. No head injury. No headache. No paralysis. Psychiatric: No depression. No anxiety. No mood swings. Endocrine: abnormal blood sugars. No weight change. PHYSICAL EXAMINATION: General: 76-year-old female laying down in bed in no acute distress however she appears to be generally weak. HEENT: Head is atraumatic, normocephalic, pupils were equal round reactive to light and recommendation, extraocular muscle movement were intact, sclera nonicteric, conjunctivae were pale, mucous membranes of the mouth are somewhat dry. Neck: Supple, no JVP, decreased carotid upstroke bilaterally, no lymphadenopathy. Chest: Decreased breath sounds at the bases, few rhonchi, no expiratory wheezes, no chest wall tenderness, no intercostal retractions. Heart: First heart sound is normal, second heart sounds normal there is systolic ejection murmur 2/6. Sternal border. Abdomen: Soft, nontender, nondistended, positive bowel sounds. Extremities: There is left below-knee amputation, wound appears to be healing well approximated very well, there is a small bloody blister to the medial aspect of the left knee, right foot decreased pulses with right big toe dry gangrene. Neurologic examination: Patient is awake alert and oriented X3 , cranial nerves II-12 appear grossly intact, muscle power were 4 out of 5 in upper extremities and 3 out of 5 in bilateral lower extremities, deep tendon reflexes normal bilaterally. ASSESSMENT AND PLAN: 1. Acute non-ST elevation FL. continue metoprolol 12.5 mg orally twice every day, consider adding atorvastatin 40 mg once every day. Continue conservative approach patient is not a candidate for aggressive measures 2. Acute kidney injury and top of chronic kidney disease stage IV. Likely related to acute tubular necrosis and decreased effective blood flow to the kidneys. Continue IV fluid resuscitation, patient is not a candidate for hemodi alysis, she does not want hemodialysis either. 3. Severe leukocytosis secondary to urinary tract infection with SIRS. Continue patient on ceftriaxone 2 g IV piggyback every 24 hours, urine culture showed evidence of Klebsiella pneumoniae and E. coli that is sensitive to ceftriaxone 4. Hypertension and hypertensive cardiovascular disease. Continue patient on Lopressor 12.5 mg orally twice every day. 5. Anemia of chronic kidney disease. Monitor the patient's CBC very closely continue patient on Aranesp 40 MC Kai subcutaneously every 7 days. 6. Diabetes mellitus type 2 with diabetic polyneuropathy. Continue patient on Levemir 8 units as well as slight scale insulin. 7. Hyperlipidemia. Start the patient on atorvastatin 40 mg orally once every day. 8. Peripheral vascular disease status post left below-knee amputation. Stable at this time. 9. Right big toe dry gangrene. Wound care consult. 10. Elevated liver function tests likely related to surgeries and possible s hock liver we'll repeat CMP in the next 24 hours. 11. Recent Klebsiella pneumoniae UTI/E. coli UTI continue ceftriaxone. 12. DVT prophylaxis. Patient is off anticoagualtion due to GI bleed. 13. GI Prophylaxis. Continue patient on Protonix 40 mg IVP bid 14. Overall prognosis is dismal. Objective - Vital Signs Vital signs: Vital Signs Temp 97.5 F L 09/01/21 20:00 Pulse 56 L 09/01/21 22:00 Resp 21 09/01/21 22:00 BP 104/46 09/01/21 22:00 Pulse Ox 98 09/01/21 22:00 FiO2 Intake & Output 09/01/21 09/01/21 09/02/21 06:59 18:59 06:59 Intake Total 825 1140 300 Output Total 575 1180 200 Balance 250 -40 100 Weight 75.3 kg Intake: IV 825 800 200 Sodium Chloride 0.9% 1, 825 800 200 000 ml @ 50 mls/hr IV . Q20H [facility] Rx#:[id number] Intake, IV Titration 100 Amount Sodium Ferric Gluconat- 100 Sucrose 125 mg In Sodium Chloride 0.9% 100 ml @ 100 mls/hr IVPB DAILY [facility] Rx#:[id number] Oral 240 100 Output: Urine 575 1180 200 Other: Voiding Method Indwelling Catheter Indwelling Catheter Indwelling Catheter # Bowel Movements 1 - Labs CBC & Chem 7: 09/01/21 07:23 09/01/21 07:23 Labs: Abnormal Lab Results - Last 24 Hours (Table) 09/01/21 09/01/21 09/01/21 Range/Units 07:23 07:23 07:23 WBC 12.0 H (3.8-10.6) k/uL RBC 3.15 L (3.80-5.40) m/uL Hgb 9.1 L (11.4-16.0) gm/dL Hct 29.5 L (34.0-46.0) % MCHC 30.7 L (31.0-37.0) g/dL Sodium 134 L (137-145) mmol/L Carbon Dioxide 17 L (22-30) mmol/L BUN 73 H (7-17) mg/dL Creatinine 1.80 H (0.52-1.04) mg/dL Glucose 114 H (74-99) mg/dL POC Glucose (mg/dL) (70-110) mg/dL Calcium 8.1 L (8.4-10.2) mg/dL Magnesium 2.7 H (1.6-2.3) mg/dL 09/01/21 09/01/21 09/01/21 Range/Units 12:02 16:24 20:04 WBC (3.8-10.6) k/uL RBC (3.80-5.40) m/uL Hgb (11.4-16.0) gm/dL Hct (34.0-46.0) % MCHC (31.0-37.0) g/dL Sodium (137-145) mmol/L Carbon Dioxide (22-30) mmol/L BUN (7-17) mg/dL Creatinine (0.52-1.04) mg/dL Glucose (74-99) mg/dL POC Glucose (mg/dL) 122 H 136 H 189 H (70-110) mg/dL Calcium (8.4-10.2) mg/dL Magnesium (1.6-2.3) mg/dL Microbiology - Last 24 Hours (Table) 08/30/21 00:51 Blood Culture - Preliminary Blood No Growth after 48 hours
[2021-09-02] MEDS: ACETAMINOPHEN TAB 325 MG TAB PO PRN ×2 (03:21→12:40)
[2021-09-02 06:25] LABS: Glucose,Whole Blood 33 mg/dL (70-110)
[2021-09-02] MEDS ORDERED: DEXTROSE 50% SYRINGE 50 ML IVP ONE (06:25)
[2021-09-02] MEDS: INSULIN ASPART (NovoLOG) 100 UNIT/ML VIAL SQ SCH ×8 (06:30→22:15)
--- NOTE | 2021-09-02 06:40 | P.PN ---
Subjective Progress Note Date: 09/01/21 Principal diagnosis: Urinary tract infection Patient is a 76-year-old female with multiple comorbidities presenting to the hospital with increasing shortness of breath noticed to have elevated cardiac enzymes and a positive UA concern for UTI with multiple ALLERGIES. P atient has been applied 08/31/2021 because of the GI bleed On today's evaluation that is 09/01/2021, patient remains to be afebrile, the patient denies any chest pain shortness of breath or cough no abdominal pain , patient did have some gallstones but no further bleeding per rectum per the nursing staff Objective - Vital Signs Vital signs: Vital Signs Temp 97.0 F L 09/01/21 08:00 Pulse 62 09/01/21 09:00 Resp 26 H 09/01/21 09:00 BP 125/51 09/01/21 09:00 Pulse Ox 100 09/01/21 09:00 FiO2 Intake & Output 08/31/21 09/01/21 09/01/21 18:59 06:59 18:59 Intake Total 375 825 225 Output Total 570 575 280 Balance -195 250 -55 Weight 75.3 kg Intake: IV 375 825 225 Sodium Chloride 0.9% 1, 375 825 225 000 ml @ 50 mls/hr IV . Q20H [facility] Rx#:[id number] Output: Urine 570 575 280 Other: Voiding Method Indwelling Catheter Indwelling Catheter Indwelling Catheter # Bowel Movements 1 - Exam GENERAL DESCRIPTION: An elderly female lying in bed in no distress RESPIRATORY SYSTEM: Unlabored breathing , decreased breath sounds at bases HEART: S1 S2 regular rate and rhythm , ABDOMEN: Soft , no tenderness EXTREMITIES: Right foot wound is currently dressed no drainage on the dressing - Labs CBC & Chem 7: 09/01/21 07:23 09/01/21 07:23 Labs: Abnormal Lab Results - Last 24 Hours (Table) 08/31/21 08/31/21 08/31/21 Range/Units 10:37 10:37 11:44 WBC 15.5 H (3.8-10.6) k/uL RBC 3.00 L (3.80-5.40) m/uL Hgb 8.6 L (11.4-16.0) gm/dL Hct 27.5 L (34.0-46.0) % MCHC (31.0-37.0) g/dL RDW (11.5-15.5) % Neutrophils # 12.0 H (1.3-7.7) k/uL Sodium 132 L (137-145) mmol/L Potassium 3.3 L (3.5-5.1) mmol/L Carbon Dioxide 20 L (22-30) mmol/L BUN 85 H (7-17) mg/dL Creatinine 2.03 H (0.52-1.04) mg/dL Glucose 106 H (74-99) mg/dL POC Glucose (mg/dL) 127 H (70-110) mg/dL Calcium 7.4 L (8.4-10.2) mg/dL Magnesium 2.6 H (1.6-2.3) mg/dL AST 653 H (14-36) U/L ALT 390 H (4-34) U/L Total Protein 5.9 L (6.3-8.2) g/dL Albumin 2.9 L (3.5-5.0) g/dL 08/31/21 08/31/21 08/31/21 Range/Units 16:21 16:46 21:17 WBC 15.8 H 14.6 H (3.8-10.6) k/uL RBC 3.26 L 3.03 L (3.80-5.40) m/uL Hgb 9.3 L 8.7 L (11.4-16.0) gm/dL Hct 30.0 L 28.2 L (34.0-46.0) % MCHC 30.9 L 30.7 L (31.0-37.0) g/dL RDW 15.6 H (11.5-15.5) % Neutrophils # 12.2 H 11.5 H (1.3-7.7) k/uL Sodium (137-145) mmol/L Potassium (3.5-5.1) mmol/L Carbon Dioxide (22-30) mmol/L BUN (7-17) mg/dL Creatinine (0.52-1.04) mg/dL Glucose (74-99) mg/dL POC Glucose (mg/dL) 160 H (70-110) mg/dL Calcium (8.4-10.2) mg/dL Magnesium (1.6-2.3) mg/dL AST (14-36) U/L ALT (4-34) U/L Total Protein (6.3-8.2) g/dL Albumin (3.5-5.0) g/dL 09/01/21 09/01/21 09/01/21 Range/Units 07:23 07:23 07:23 WBC 12.0 H (3.8-10.6) k/uL RBC 3.15 L (3.80-5.40) m/uL Hgb 9.1 L (11.4-16.0) gm/dL Hct 29.5 L (34.0-46.0) % MCHC 30.7 L (31.0-37.0) g/dL RDW (11.5-15.5) % Neutrophils # (1.3-7.7) k/uL Sodium 134 L (137-145) mmol/L Potassium (3.5-5.1) mmol/L Carbon Dioxide 17 L (22-30) mmol/L BUN 73 H (7-17) mg/dL Creatinine 1.80 H (0.52-1.04) mg/dL Glucose 114 H (74-99) mg/dL POC Glucose (mg/dL) (70-110) mg/dL Calcium 8.1 L (8.4-10.2) mg/dL Magnesium 2.7 H (1.6-2.3) mg/dL AST (14-36) U/L ALT (4-34) U/L Total Protein (6.3-8.2) g/dL Albumin (3.5-5.0) g/dL Microbiology - Last 24 Hours (Table) 08/30/21 00:51 Blood Culture - Preliminary Blood No Growth after 48 hours 08/29/21 16:24 Urine Culture - Final Urine,Voided Escherichia coli Klebsiella pneumoniae Assessment and Plan (1) UTI (urinary tract infection) Current Visit: Yes Status: Acute Code(s): N39.0 - URINARY TRACT INFECTION, SITE NOT SPECIFIED SNOMED Code(s): 60597436 Plan: 1patient presented to hospital with multiple symptoms and this patient did have elevated white count significantly positive UA and indwelling Loyola catheter lactic acidosis UTI last urine culture positive for Klebsiella and E. coli could be the likely pathogen failing outpatient antibiotic therapy. 2patient with multiple antibiotic allergies that would limit the number of antibiotics safe to use. 3patient urine has been finalized with E. coli and Klebsiella that is sensitive to Rocephin 2 g daily which will be continued white count is trending down Time with Patient: Less than 30
[2021-09-02 06:41] LABS: Glucose,Whole Blood 174 mg/dL (70-110)
[2021-09-02 08:33] LABS: Albumin 2.9 g/dL (3.5-5.0); Basophils % (A) 0 %; Calcium 7.9 mg/dL (8.4-10.2); Eosinophils # (A) 0.1 k/uL (0-0.7); Eosinophils % (A) 0 %; HCT 31.9 % (34.0-46.0); HGB 9.7 gm/dL (11.4-16.0); Hypochromasia Marked; Lymphocytes # (A) 1.1 k/uL (1.0-4.8); Lymphocytes % (A) 9 %; MCH 28.6 pg (25.0-35.0); MCHC 30.3 g/dL (31.0-37.0); MCV 94.2 fL (80.0-100.0); Mean Platelet Volume 10.5; Monocytes # (A) 0.7 k/uL (0-1.0); Monocytes % (A) 6 %; Neutrophils # (A) 10.3 k/uL (1.3-7.7); Neutrophils % (A) 82 %; Platelet Count 182 k/uL (150-450); Potassium 3.7 mmol/L (3.5-5.1); RBC 3.38 m/uL (3.80-5.40); RDW 15.8 % (11.5-15.5); Total Bilirubin 0.8 mg/dL (0.2-1.3); Total Protein 5.9 g/dL (6.3-8.2); WBC 12.5 k/uL (3.8-10.6)
[2021-09-02] MEDS: METOPROLOL TARTRATE 12.5 MG TAB PO SCH ×2 (08:55→22:15)
[2021-09-02] MEDS: SODIUM BICARBONATE TAB 650 MG TAB PO SCH ×3 (08:55→22:16)
[2021-09-02] MEDS: ASPIRIN 81 MG PO SCH (08:55)
[2021-09-02] MEDS: ISOSORBIDE MONONITRATE ER 30 MG TAB.ER.24H PO SCH (08:55)
[2021-09-02] MEDS: PANTOPRAZOLE 40 MG/10 ML VIAL IVP SCH ×2 (08:56→22:16)
[2021-09-02] MEDS: MIDODRINE 5 MG TAB PO SCH ×3 (08:56→22:14)
[2021-09-02] MEDS ORDERED: POTASSIUM CHLORIDE ER 20 MEQ TAB.ER PO STA (09:07)
--- NOTE | 2021-09-02 09:08 | P.PN ---
Subjective Patient is seen in follow-up for acute kidney injury on chronic kidney disease. Renal function improving. Hemoglobin better today. No active bleeding. Receiving IV fluids. Nonoliguric. On antibiotics for UTI. Feels hungry. Vital signs are stable. General: No acute distress. HEENT: Head exam is unremarkable. LUNGS: Breath sounds decreased. HEART: Rate and Rhythm are regular. ABDOMEN: Soft, no distention. EXTREMITITES: No edema. Objective - Vital Signs Vital signs: Vital Signs Temp 96.9 F L 09/02/21 08:00 Pulse 58 L 09/02/21 08:00 Resp 14 09/02/21 08:00 BP 109/52 09/02/21 08:00 Pulse Ox 98 09/02/21 08:00 FiO2 Intake & Output 09/01/21 09/02/21 09/02/21 18:59 06:59 18:59 Intake Total 1140 650 100 Output Total 1180 470 65 Balance -40 180 35 Weight 79.3 kg Intake: IV 800 550 100 Sodium Chloride 0.9% 1, 800 550 100 000 ml @ 50 mls/hr IV . Q20H [facility] Rx#:[id number] Intake, IV Titration 100 Amount Sodium Ferric Gluconat- 100 Sucrose 125 mg In Sodium Chloride 0.9% 100 ml @ 100 mls/hr IVPB DAILY [facility] Rx#:[id number] Oral 240 100 Output: Urine 1180 470 65 Other: Voiding Method Indwelling Catheter Indwelling Catheter # Bowel Movements 1 1 1 - Labs CBC & Chem 7: 09/02/21 07:56 09/02/21 07:56 Labs: Abnormal Lab Results - Last 24 Hours (Table) 09/01/21 09/01/21 09/01/21 Range/Units 12:02 16:24 20:04 WBC (3.8-10.6) k/uL RBC (3.80-5.40) m/uL Hgb (11.4-16.0) gm/dL Hct (34.0-46.0) % MCHC (31.0-37.0) g/dL RDW (11.5-15.5) % Neutrophils # (1.3-7.7) k/uL BUN (7-17) mg/dL Creatinine (0.52-1.04) mg/dL Glucose (74-99) mg/dL POC Glucose (mg/dL) 122 H 136 H 189 H (70-110) mg/dL Calcium (8.4-10.2) mg/dL AST (14-36) U/L ALT (4-34) U/L Total Protein (6.3-8.2) g/dL Albumin (3.5-5.0) g/dL 09/02/21 09/02/21 09/02/21 Range/Units 06:24 06:40 07:56 WBC 12.5 H (3.8-10.6) k/uL RBC 3.38 L (3.80-5.40) m/uL Hgb 9.7 L (11.4-16.0) gm/dL Hct 31.9 L (34.0-46.0) % MCHC 30.3 L (31.0-37.0) g/dL RDW 15.8 H (11.5-15.5) % Neutrophils # 10.3 H (1.3-7.7) k/uL BUN (7-17) mg/dL Creatinine (0.52-1.04) mg/dL Glucose (74-99) mg/dL POC Glucose (mg/dL) 33 L 174 H (70-110) mg/dL Calcium (8.4-10.2) mg/dL AST (14-36) U/L ALT (4-34) U/L Total Protein (6.3-8.2) g/dL Albumin (3.5-5.0) g/dL 09/02/21 Range/Units 07:56 WBC (3.8-10.6) k/uL RBC (3.80-5.40) m/uL Hgb (11.4-16.0) gm/dL Hct (34.0-46.0) % MCHC (31.0-37.0) g/dL RDW (11.5-15.5) % Neutrophils # (1.3-7.7) k/uL BUN 61 H (7-17) mg/dL Creatinine 1.47 H (0.52-1.04) mg/dL Glucose 119 H (74-99) mg/dL POC Glucose (mg/dL) (70-110) mg/dL Calcium 7.9 L (8.4-10.2) mg/dL AST 183 H (14-36) U/L ALT 252 H (4-34) U/L Total Protein 5.9 L (6.3-8.2) g/dL Albumin 2.9 L (3.5-5.0) g/dL Microbiology - Last 24 Hours (Table) 08/30/21 00:51 Blood Culture - Preliminary Blood No Growth after 72 hours Assessment and Plan Plan: Assessment: 1. Acute kidney injury secondary to ATN secondary to diuresis and infection. C reatinine 3.25 on admission and is down to 1.47 today. No hydronephrosis noted on CAT scan. 2. Chronic kidney disease stage IV secondary to nephrosclerosis with baseline creatinine near 2. 3. E. coli and Klebsiella UTI on antibiotics. 4. Non-ST elevated myocardial infarction. Cardiology following. Echo showed ejection fraction of 40% with moderate to severe mitral and tricuspid regurgitation. 5. Anemia of chronic kidney disease. Iron deficiency noted - status post IV iron. On Aranesp. Also concern for GI bleed. Surgery following. 6. Diabetes mellitus. 7. Metabolic acidosis secondary to acute kidney injury and IV fluids. Improved. On oral bicarb. 8. Hypovolemic hyponatremia improved with IV hydration. Plan: Maintain normal saline at 50 mL an hour. Avoid nephrotoxins. Cortisol level not low. Continue to monitor renal function and urine output. Replace potassium.
--- NOTE | 2021-09-02 10:46 | P.PN ---
Subjective Progress Note Date: 09/02/21 CHIEF COMPLAINT: GI bleeding HISTORY OF PRESENT ILLNESS: Patient lying in bed comfortably. Denies any ab dominal pain. She did have a small brown bowel movement this morning. She did have a small bowel movement yesterday with questionable blood per nurse. She denies any nausea or vomiting. She did eat a piece of toast this morning. Critical care service has advance diet. Hemoglobin has gone up from 9.1-9.7. Patient has been downgraded to [facility] floor. Afebrile. Vitals stable. PHYSICAL EXAM: VITAL SIGNS: Reviewed. GENERAL: Well-developed in no acute distress. ABDOMEN: Soft. Nondistended. Nontender. ASSESSMENT: 1. Acute GI bleed PLAN: -continue supportive care -Continue IV Protonix -No endoscopy is planned at this time -Continue to monitor hemoglobin Physician Ship Superintendent note has been reviewed by physician. Signing provider agrees with the documented findings, assessment, and plan of care. I have personally seen and examined the patient, reviewed the DINING ROOM HOSTESS /PAs history, exam and MDM and agree with the assessment and plan as written. Based on total visit time, I have performed more than 50% of the visit. As above: Patient doing well today. Stool is morning was brown in color. No pain. Hemoglobin is stable. Continue antiacids appear clean. Apparently family is considering palliative care or hospice. Agree with advancing diet. We'll reevaluate tomorrow. Objective - Vital Signs Vital signs: Vital Signs Temp 96.9 F L 09/02/21 08:00 Pulse 64 09/02/21 09:00 Resp 18 09/02/21 09:00 BP 119/46 09/02/21 09:00 Pulse Ox 98 09/02/21 08:00 FiO2 Intake & Output 09/01/21 09/02/21 09/02/21 18:59 06:59 18:59 Intake Total 1140 650 150 Output Total 1180 470 97 Balance -40 180 53 Weight 79.3 kg Intake: IV 800 550 150 Sodium Chloride 0.9% 1, 800 550 150 000 ml @ 50 mls/hr IV . Q20H [facility] Rx#:[id number] Intake, IV Titration 100 Amount Sodium Ferric Gluconat- 100 Sucrose 125 mg In Sodium Chloride 0.9% 100 ml @ 100 mls/hr IVPB DAILY [facility] Rx#:[id number] Oral 240 100 Output: Urine 1180 470 97 Other: Voiding Method Indwelling Catheter Indwelling Catheter # Bowel Movements 1 1 1 - Labs CBC & Chem 7: 09/02/21 07:56 09/02/21 07:56 Labs: Abnormal Lab Results - Last 24 Hours (Table) 09/01/21 09/01/21 09/01/21 Range/Units 12:02 16:24 20:04 WBC (3.8-10.6) k/uL RBC (3.80-5.40) m/uL Hgb (11.4-16.0) gm/dL Hct (34.0-46.0) % MCHC (31.0-37.0) g/dL RDW (11.5-15.5) % Neutrophils # (1.3-7.7) k/uL BUN (7-17) mg/dL Creatinine (0.52-1.04) mg/dL Glucose (74-99) mg/dL POC Glucose (mg/dL) 122 H 136 H 189 H (70-110) mg/dL Calcium (8.4-10.2) mg/dL AST (14-36) U/L ALT (4-34) U/L Total Protein (6.3-8.2) g/dL Albumin (3.5-5.0) g/dL 09/02/21 09/02/21 09/02/21 Range/Units 06:24 06:40 07:56 WBC 12.5 H (3.8-10.6) k/uL RBC 3.38 L (3.80-5.40) m/uL Hgb 9.7 L (11.4-16.0) gm/dL Hct 31.9 L (34.0-46.0) % MCHC 30.3 L (31.0-37.0) g/dL RDW 15.8 H (11.5-15.5) % Neutrophils # 10.3 H (1.3-7.7) k/uL BUN (7-17) mg/dL Creatinine (0.52-1.04) mg/dL Glucose (74-99) mg/dL POC Glucose (mg/dL) 33 L 174 H (70-110) mg/dL Calcium (8.4-10.2) mg/dL AST (14-36) U/L ALT (4-34) U/L Total Protein (6.3-8.2) g/dL Albumin (3.5-5.0) g/dL 09/02/21 Range/Units 07:56 WBC (3.8-10.6) k/uL RBC (3.80-5.40) m/uL Hgb (11.4-16.0) gm/dL Hct (34.0-46.0) % MCHC (31.0-37.0) g/dL RDW (11.5-15.5) % Neutrophils # (1.3-7.7) k/uL BUN 61 H (7-17) mg/dL Creatinine 1.47 H (0.52-1.04) mg/dL Glucose 119 H (74-99) mg/dL POC Glucose (mg/dL) (70-110) mg/dL Calcium 7.9 L (8.4-10.2) mg/dL AST 183 H (14-36) U/L ALT 252 H (4-34) U/L Total Protein 5.9 L (6.3-8.2) g/dL Albumin 2.9 L (3.5-5.0) g/dL Microbiology - Last 24 Hours (Table) 08/30/21 00:51 Blood Culture - Preliminary Blood No Growth after 72 hours
--- NOTE | 2021-09-02 11:11 | P.PN ---
Subjective Progress Note Date: 09/02/21 Principal diagnosis: Gastrointestinal bleed. Pulmonary consult dated 08/31/2021. 76-year-old female who was initially evaluated in the emergency room on August 29. The patient apparently has a history of coronary disease, atrial fibrillation, diabetes, chronic kidney disease, and recent left below the knee amputation. She was brought to the emergency room, by EMS, from [facility]. She apparently was having chest pain there, and because of that, she was brought into the hospital to be evaluated. She also may have been acting erratically there, and apparently yelling and screaming at the nursing facility. She was recently hospitalized for gangrenous toes on the right foot, and also recently had a left low the knee amputation as well. The patient was admitted and was found to have a non-ST segment elevation myocardial infarction, with initial troponin of 8, increasing up to 24, and then 21. The patient was started on IV heparin, but apparently developed an acute GI bleed, with maroon stools, and a decline in her hemoglobin level. Heparin was discontinued by cardiology. She was also seen by nephrology for renal failure. We are asked to see the patient for possible transfer to intensive care unit. The patient is currently on room air. IV heparin has been discontinued. She's in no acute distress, but she does look pale. She is complaining of abdominal discomfort. Labs include a white count of 15.5, hemoglobin 8.6, hematocrit 27.5, and a platelet count of 207,000. PTT is 60.3. Sodium 132, calcium 3.3, chlorides 102, CO2 20, anion g ap 10, BUN 85, with a creatinine of 2.03. Liver function tests are abnormal with an AST of 653 and an ALT of 390. The patient did have a computed tomography scan of the abdomen and pelvis, which did not show anything acute. Chest x-ray was normal. Progress note dated 09/01/2021. This is a 76-year-old female seen yesterday in consultation. We saw her for abdominal pain and GI bleed. Currently, the patient's doing well. She is on room air. She's getting saline at 75 mL an hour. She may have an EGD today. Her hemoglobin this morning was 8.7. She had an uneventful night. She had a small maroon bowel movement last night. He has been hemodynamically stable. No new labs today as yet. Progress note dated 09/02/2021. 76-year-old female seen in consultation, 2 days ago. Please see our note from August 31. She was admitted with a diagnosis of multiple pain and GI bleed. She was also thought to possibly have an non-ST segment elevation myocardial patient has had no significant bleeding. Her hemoglobin yesterday was 9.1. She is on room air. She's getting saline at 50 mL an hour. Respiratory status and her hemodynamic status are stable. White count 12.5, hemoglobin 9.7, hematocrit 31.9, with a platelet count of 182,000. Sodium 137, potassium 3.7, chlorides 103, CO2 22, normal anion gap, he was 61, and creatinine 1.47. AST is 183 with an ALT of 252. According to the surgeon, no plans for EGD/colonscopy at this time. Objective - Vital Signs Vital signs: Vital Signs Temp 96.9 F L 09/02/21 08:00 Pulse 56 L 09/02/21 10:00 Resp 15 09/02/21 10:00 BP 115/47 09/02/21 10:00 Pulse Ox 98 09/02/21 08:00 FiO2 Intake & Output 09/01/21 09/02/21 09/02/21 18:59 06:59 18:59 Intake Total 1140 650 200 Output Total 1180 470 137 Balance -40 180 63 Weight 79.3 kg Intake: IV 800 550 200 Sodium Chloride 0.9% 1, 800 550 200 000 ml @ 50 mls/hr IV . Q20H GARRY Rx#:[id number] Intake, IV Titration 100 Amount Sodium Ferric Gluconat- 100 Sucrose 125 mg In Sodium Chloride 0.9% 100 ml @ 100 mls/hr IVPB DAILY GARRY Rx#:[id number] Oral 240 100 Output: Urine 1180 470 137 Other: Voiding Method Indwelling Catheter Indwelling Catheter Indwelling Catheter # Bowel Movements 1 1 1 - Exam No acute distress, oriented 3. Very pale appearing. Currently on room air. Room air saturation of 98%. HEENT examination is grossly unremarkable. Neck supple. Full range of motion. No adenopathy thyromegaly or neck vein dis tention. Cardiovascular examination reveals regular rhythm rate. S1-S2 normal. No S3 or S4. No discernible murmur noted. Heart rate 56 bpm. Lungs reveal clear breath sounds. Breath sounds are equal bilaterally. No adventitious lung sounds including wheezes rhonchi or crackles. Abdomen soft, with periumbilical pain on palpation. Bowel sounds are noted. Extremities reveal a relatively recent left BKA, and a right foot which is wrapped, because of gangrenous toes. Skin is pale, with multiple areas of ecchymoses noted. Neurologic examination is brief but nonfocal. - Labs CBC & Chem 7: 09/02/21 07:56 09/02/21 07:56 Labs: Abnormal Lab Results - Last 24 Hours (Table) 09/01/21 09/01/21 09/01/21 Range/Units 12:02 16:24 20:04 WBC (3.8-10.6) k/uL RBC (3.80-5.40) m/uL Hgb (11.4-16.0) gm/dL Hct (34.0-46.0) % MCHC (31.0-37.0) g/dL RDW (11.5-15.5) % Neutrophils # (1.3-7.7) k/uL BUN (7-17) mg/dL Creatinine (0.52-1.04) mg/dL Glucose (74-99) mg/dL POC Glucose (mg/dL) 122 H 136 H 189 H (70-110) mg/dL Calcium (8.4-10.2) mg/dL AST (14-36) U/L ALT (4-34) U/L Total Protein (6.3-8.2) g/dL Albumin (3.5-5.0) g/dL 09/02/21 09/02/21 09/02/21 Range/Units 06:24 06:40 07:56 WBC 12.5 H (3.8-10.6) k/uL RBC 3.38 L (3.80-5.40) m/uL Hgb 9.7 L (11.4-16.0) gm/dL Hct 31.9 L (34.0-46.0) % MCHC 30.3 L (31.0-37.0) g/dL RDW 15.8 H (11.5-15.5) % Neutrophils # 10.3 H (1.3-7.7) k/uL BUN (7-17) mg/dL Creatinine (0.52-1.04) mg/dL Glucose (74-99) mg/dL POC Glucose (mg/dL) 33 L 174 H (70-110) mg/dL Calcium (8.4-10.2) mg/dL AST (14-36) U/L ALT (4-34) U/L Total Protein (6.3-8.2) g/dL Albumin (3.5-5.0) g/dL 09/02/21 Range/Units 07:56 WBC (3.8-10.6) k/uL RBC (3.80-5.40) m/uL Hgb (11.4-16.0) gm/dL Hct (34.0-46.0) % MCHC (31.0-37.0) g/dL RDW (11.5-15.5) % Neutrophils # (1.3-7.7) k/uL BUN 61 H (7-17) mg/dL Creatinine 1.47 H (0.52-1.04) mg/dL Glucose 119 H (74-99) mg/dL POC Glucose (mg/dL) (70-110) mg/dL Calcium 7.9 L (8.4-10.2) mg/dL AST 183 H (14-36) U/L ALT 252 H (4-34) U/L Total Protein 5.9 L (6.3-8.2) g/dL Albumin 2.9 L (3.5-5.0) g/dL Microbiology - Last 24 Hours (Table) 08/30/21 00:51 Blood Culture - Preliminary Blood No Growth after 72 hours Assessment and Plan Assessment: Acute gastrointestinal bleed, in a patient who was recently admitted for non-ST segment elevation myocardial infarction, and was recently on IV heparin. Acute urinary tract infection, secondary to Escherichia coli and Klebsiella pneumoniae. 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 Gangrenous toes, right foot. History of atrial fibrillation. History of CAD, status post stent placement. History of previous myocardial infarction. History of hypertension. History of diabetes, with diabetic end organ involvement. History of chronic kidney disease. Peripheral vascular occlusive disease. Multiple other medical problems and comorbidities. Plan: Plan dated 08/31/2021. The patient will be transferred to the intensive care unit for further monitoring and management. The patient has been seen by both cardiology and by nephrology. Her renal function is actually a bit improved. IV heparin has been discontinued. The patient did have some maroon stools. Her hemoglobin has dropped and she does look pale. Blood pressure and saturation are stable the cu rrent time. The patient is a DO NOT INTUBATE patient. Additional recommendations and suggestions are forthcoming. Prognosis is certainly guarded. The patient recently had a left BKA, August 06, by Dr. Loyola. Plan dated 09/01/2021. The patient was transferred to the intensive care unit for further monitoring and management. Her clinical status has remained stable. The patient has had no significant further bleeding. Hemodynamically, the patient is stable. Her urine grew out both Escherichia coli and Klebsiella pneumoniae, both are sensitive to ceftriaxone. The patient may undergo an EGD today. The patient is a DO NOT INTUBATE patient. The patient may be able to be transferred out of the intensive care unit, depending on what they find on EGD. Overall prognosis remains guarded. We will continue to follow make recommendations where appropriate. Plan dated 09/02/2021. The patient's doing well. She stable. Her hemoglobin is 9.7. The patient can be transferred out of the intensive care unit. She go to the general medical floor with telemetry. No plans by surgery for any procedure at this time. No additional bleeding. She is on antibiotic for urinary tract infection secondary to Escherichia coli and Klebsiella pneumoniae. Moving forward, we'll see the patient only as needed. Prognosis is guarded. Time with Patient: Less than 30
[2021-09-02 11:17] LABS: Glucose,Whole Blood 185 mg/dL (70-110)
[2021-09-02] MEDS: SODIUM CHLORIDE 0.9% 1,000 ML IV SCH (11:30)
--- NOTE | 2021-09-02 15:50 | P.PN ---
Subjective Progress Note Date: 09/02/21 Principal diagnosis: Acute coronary syndrome This is a 76-year-old female patient with a past medical history significant for coronary artery disease as well as paroxysmal atrial fibrillation as well as multiple comorbid conditions including history of GI bleeding was brought from an extended care facility to the hospital with a chest discomfort and shortness of breath. She was ruled in for acute coronary syndrome. Also she is in acute on chronic renal failure. The patient was seen yesterday on the floor but because she was having gastrointestinal bleeding with maroon stool she was brought to the intensive care unit. This morning she was seen in the intensive care unit. The patient was seen this morning. Her hemoglobin is 9.7. She remained stable from a cardiovascular standpoint overview. Continue the conservative medical approach regarding the acute coronary syndrome including using aspirin as well as beta chely. She underwent an echo which revealed impaired LV function was evidence of moderate to severe mitral regurgitation. Consider adding RANDA inhi bitor to the current medical regimen once the creatinine is back to baseline. Objective - Vital Signs Vital signs: Vital Signs Temp 97.2 F L 09/02/21 12:00 Pulse 64 09/02/21 14:00 Resp 14 09/02/21 14:00 BP 127/49 09/02/21 14:00 Pulse Ox 98 09/02/21 12:00 FiO2 Intake & Output 09/01/21 09/02/21 09/02/21 18:59 06:59 18:59 Intake Total 1140 650 300 Output Total 1180 470 209 Balance -40 180 91 Weight 79.3 kg Intake: IV 800 550 300 Sodium Chloride 0.9% 1, 800 550 300 000 ml @ 50 mls/hr IV . Q20H GARRY Rx#:[id number] Intake, IV Titration 100 Amount Sodium Ferric Gluconat- 100 Sucrose 125 mg In Sodium Chloride 0.9% 100 ml @ 100 mls/hr IVPB DAILY GARRY Rx#:[id number] Oral 240 100 Output: Urine 1180 470 209 Other: Voiding Method Indwelling Catheter Indwelling Catheter Indwelling Catheter # Bowel Movements 1 1 1 - Constitutional General appearance: Present: no acute distress - Respiratory Respiratory: bilateral: diminished - Cardiovascular Rhythm: regular Heart sounds: normal: S1, S2 - Labs CBC & Chem 7: 09/02/21 07:56 09/02/21 07:56 Labs: Abnormal Lab Results - Last 24 Hours (Table) 09/01/21 09/01/21 09/02/21 Range/Units 16:24 20:04 06:24 WBC (3.8-10.6) k/uL RBC (3.80-5.40) m/uL Hgb (11.4-16.0) gm/dL Hct (34.0-46.0) % MCHC (31.0-37.0) g/dL RDW (11.5-15.5) % Neutrophils # (1.3-7.7) k/uL BUN (7-17) mg/dL Creatinine (0.52-1.04) mg/dL Glucose (74-99) mg/dL POC Glucose (mg/dL) 136 H 189 H 33 L (70-110) mg/dL Calcium (8.4-10.2) mg/dL AST (14-36) U/L ALT (4-34) U/L Total Protein (6.3-8.2) g/dL Albumin (3.5-5.0) g/dL 09/02/21 09/02/21 09/02/21 Range/Units 06:40 07:56 07:56 WBC 12.5 H (3.8-10.6) k/uL RBC 3.38 L (3.80-5.40) m/uL Hgb 9.7 L (11.4-16.0) gm/dL Hct 31.9 L (34.0-46.0) % MCHC 30.3 L (31.0-37.0) g/dL RDW 15.8 H (11.5-15.5) % Neutrophils # 10.3 H (1.3-7.7) k/uL BUN 61 H (7-17) mg/dL Creatinine 1.47 H (0.52-1.04) mg/dL Glucose 119 H (74-99) mg/dL POC Glucose (mg/dL) 174 H (70-110) mg/dL Calcium 7.9 L (8.4-10.2) mg/dL AST 183 H (14-36) U/L ALT 252 H (4-34) U/L Total Protein 5.9 L (6.3-8.2) g/dL Albumin 2.9 L (3.5-5.0) g/dL 09/02/21 Range/Units 11:15 WBC (3.8-10.6) k/uL RBC (3.80-5.40) m/uL Hgb (11.4-16.0) gm/dL Hct (34.0-46.0) % MCHC (31.0-37.0) g/dL RDW (11.5-15.5) % Neutrophils # (1.3-7.7) k/uL BUN (7-17) mg/dL Creatinine (0.52-1.04) mg/dL Glucose (74-99) mg/dL POC Glucose (mg/dL) 185 H (70-110) mg/dL Calcium (8.4-10.2) mg/dL AST (14-36) U/L ALT (4-34) U/L Total Protein (6.3-8.2) g/dL Albumin (3.5-5.0) g/dL Microbiology - Last 24 Hours (Table) 08/30/21 00:51 Blood Culture - Preliminary Blood No Growth after 72 hours Assessment and Plan Assessment: Assessment #1 acute non-ST deviation myocardial infarction #2 blood loss anemia #3 acute on chronic Failure #4 multiple comorbid conditions Plan #1 continue further investigation for the gastrointestinal bleeding #2 continue monitor the hemoglobin #3 continue aspirin and beta chely #4 consider adding RANDA inhibitor once the creatinine is back to baseline #5 follow-up with the patient
--- NOTE | 2021-09-02 16:04 | P.PN ---
Subjective Progress Note Date: 09/02/21 HISTORY OF PRESENT ILLNESS: This is a 76-year-old female with a previous medical history signif icant for coronary artery disease status post PCI of the RCA back in 2013 LAD in 2019, history of peripheral vascular occlusive disease status post left foot gangrene and prior left fourth toe amputation followed by a left below-knee amputation that was done by Dr. Lyoola recently, history of diabetes mellitus type 2 diabetic polyneuropathy, history of hypertension and hypertensive cardiovascular disease, hyperlipidemia, paroxysmal atrial fibrillation, history of chronic kidney disease stage for her GFR was around 23 has been under the care of nephrology, history of anemia of chronic kidney disease, history of medical debility, with other chronic medical issues patient was recently hospitalized at the [facility] after she developed to have a significant gangrenous changes of the left foot and she underwent left below-knee amputation that was done by Dr. Loyola and the patient was sent to [facility] developed to have a significant urinary retention requiring Loyola imcki terization and at that time she was diagnosed with a Klebsiella pneumonia UTI as well as E. coli UTI however the patient has numerous ALLERGIES and she was placed on ciprofloxacin because ran out of options for her 250 mg orally twice every day patient did receive either 1 or 2 doses of that medicatio, patient yesterday developed to have a significant left sided chest pain associated with increased shortness of breath, she was screaming in her room yelling for help, nursing staff contacted me and I refer the patient go to the emergency department at [facility] she was found to have a troponin of 8 she was found to have an acute kidney injury and top of chronic kidney disease with se chris leukocytosis with a white count of 20,000, and significant urinary tract infection she was started on Cubicin she was given 1 dose of 480 mg and that switch to 300 mg IV piggyback every 48 hours due to the creatinine clearance, the patient was admitted to the hospital with heparin drip on board, nephrology consultation, cardiology consultation, ID consultation, patient also was noticed to have a bloody blister to the medial aspect of her left inner knee, she also does appear to have a a a dry gangrenous changes to the right big toe. 08/31: Patient is laying down in bed she is complaining of generalized weakness, she has poor appetite, or mouth is very dry, she continues to be in the ICU, she was seen earlier by Dr. enriquez the plan is to monitor the patient rate closely she may need to go for an EGD if she continues to have some more bleeding. Otherwise we will continue with conservative management, prognosis continue to be guarded Dr. richard about her poor prognosis however the patient at this time is not ready for hospice. 09/01: Patient hemoglobin appears to be stable at this time, patient has been seen in consultation by general surgery, no procedure is planned unless the hemoglobin is dropping or if the patient continues to have some more GI bleed, she is currently off heparin however she is currently on aspirin 81 mg once every day, she is maintained on metoprolol 12.5 mg twice every day, she has been seen by cardiology as well as pulmonary medicine along with infectious disease, she seems to be tolerating ceftriaxone 2 g IV piggyback every 24 hours well, we will continue to monitor the patient very closely, her creatinine is improving, her CO2 is improving, she has been on sodium bicarbonate 650 mg orally twice every day, nephrology is following as well 09/02: Patient is doing better, she continues to be weak and no further bleed at this point no planned intervention for her heart or GI work up, she will continue with same treatment and she will be moving out of the ICU. REVIEW OF SYSTEMS: Constitutional: No documented fever, no chills, no night sweats. No weight change. positive for weakness, fatigue or lethargy. No daytime sleepiness. HEENT: No headache. positive for blurred vision or double vision, no loss of vision. No loss of Hearing, no ringing in the ears, no dizziness. No nasal drainage or congestion. No epistaxis. No sore throat. Lungs: positive for shortness of breath, no cough, no sputum production. No wheezing. Reports dyspnea with activity. Cardiovascular: positive for chest pain, no lower extremity edema. No palpi tations. No paroxysmal nocturnal dyspnea. No orthopnea. No lightheadedness or dizziness. No syncopal episodes. Abdominal: Reports no abdominal pain. No nausea, vomiting. No diarrhea. No constipation. No bloody or tarry stools reports loss of appetite. Genitourinary: positive for dysuria, increased frequency,does have Loyola catheter in place due to urinary retention Musculoskeletal: No myalgias. positive for muscle weakness, positive for gait dysfunction, no frequent falls. No back pain. No neck pain. Integumentary: S/P left BKA and there is bloody blister on the inner left knee, also there is dry gangrenous changes to the right big toe Neurologic: No aphasia. No facial droop. No change in mentation. No head injury. No headache. No paralysis. Psychiatric: No depression. No anxiety. No mood swings. Endocrine: abnormal blood sugars. No weight change. PHYSICAL EXAMINATION: General: 76-year-old female laying down in bed in no acute distress however she appears to be generally weak. HEENT: Head is atraumatic, normocephalic, pupils were equal round reactive to light and recommendation, extraocular muscle movement were intact, sclera nonicteric, conjunctivae were pale, mucous membranes of the mouth are somewhat dry. Neck: Supple, no JVP, decreased carotid upstroke bilaterally, no lymphadenopathy. Chest: Decreased breath sounds at the bases, few rhonchi, no expiratory wheezes, no chest wall tenderness, no intercostal retractions. Heart: First heart sound is normal, second heart sounds normal there is systolic ejection murmur 2/6. Sternal border. Abdomen: Soft, nontender, nondistended, positive bowel sounds. Extremities: There is left below-knee amputation, wound appears to be healing well approximated very well, there is a small bloody blister to the medial aspect of the left knee, right foot decreased pulses with right big toe dry gangrene. Neurologic examination: Patient is awake alert and oriented X3 , cranial nerves II-12 appear grossly intact, muscle power were 4 out of 5 in upper extremities and 3 out of 5 in bilateral lower extremities, deep tendon reflexes normal bilaterally. ASSESSMENT AND PLAN: 1. Acute non-ST elevation IL. continue metoprolol 12.5 mg orally twice every day, consider adding atorvastatin 40 mg once every day. Continue conservative approach patient is not a candidate for aggressive measures 2. Acute kidney injury and top of chronic kidney disease stage IV. Likely related to acute tubular necrosis and decreased effective blood flow to the kidneys. Continue IV fluid resuscitation, patient is not a candidate for hemodialysis, she does not want hemodialysis either. 3. Severe leukocytosis secondary to urinary tract infection with SIRS. Continue patient on ceftriaxone 2 g IV piggyback every 24 hours, urine culture showed evidence of Klebsiella pneumoniae and E. coli that is sensitive to ceft riaxone 4. Hypertension and hypertensive cardiovascular disease. Continue patient on Lopressor 12.5 mg orally twice every day. 5. Anemia of chronic kidney disease. Monitor the patient's CBC very closely continue patient on Aranesp 40 MC Kai subcutaneously every 7 days. 6. Diabetes mellitus type 2 with diabetic polyneuropathy. Continue patient on Levemir 8 units as well as slight scale insulin. 7. Hyperlipidemia. Start the patient on atorvastatin 40 mg orally once every day. 8. Peripheral vascular disease status post left below-knee amputation. Stable at this time. 9. Right big toe dry gangrene. Wound care consult. 10. Elevated liver function tests likely related to surgeries and possible shock liver we'll repeat CMP in the next 24 hours. 11. Recent Klebsiella pneumoniae UTI/E. coli UTI continue ceftriaxone. 12. DVT prophylaxis. Patient is off anticoagualtion due to GI bleed. 13. GI Prophylaxis. Continue patient on Protonix 40 mg IVP bid 14. she will be moved out of the ICU Objective - Vital Signs Vital signs: Vital Signs Temp 97.2 F L 09/02/21 12:00 Pulse 58 L 09/02/21 12:00 Resp 18 09/02/21 12:00 BP 116/42 09/02/21 12:00 Pulse Ox 98 09/02/21 12:00 FiO2 Intake & Output 09/01/21 09/02/21 09/02/21 18:59 06:59 18:59 Intake Total 1140 650 300 Output Total 1180 470 209 Balance -40 180 91 Weight 79.3 kg Intake: IV 800 550 300 Sodium Chloride 0.9% 1, 800 550 300 000 ml @ 50 mls/hr IV . Q20H GARRY Rx#:[id number] Intake, IV Titration 100 Amount Sodium Ferric Gluconat- 100 Sucrose 125 mg In Sodium Chloride 0.9% 100 ml @ 100 mls/hr IVPB DAILY GARRY Rx#:[id number] Oral 240 100 Output: Urine 1180 470 209 Other: Voiding Method Indwelling Catheter Indwelling Catheter Indwelling Catheter # Bowel Movements 1 1 1 - Labs CBC & Chem 7: 09/02/21 07:56 09/02/21 07:56 Labs: Abnormal Lab Results - Last 24 Hours (Table) 09/01/21 09/01/21 09/02/21 Range/Units 16:24 20:04 06:24 WBC (3.8-10.6) k/uL RBC (3.80-5.40) m/uL Hgb (11.4-16.0) gm/dL Hct (34.0-46.0) % MCHC (31.0-37.0) g/dL RDW (11.5-15.5) % Neutrophils # (1.3-7.7) k/uL BUN (7-17) mg/dL Creatinine (0.52-1.04) mg/dL Glucose (74-99) mg/dL POC Glucose (mg/dL) 136 H 189 H 33 L (70-110) mg/dL Calcium (8.4-10.2) mg/dL AST (14-36) U/L ALT (4-34) U/L Total Protein (6.3-8.2) g/dL Albumin (3.5-5.0) g/dL 09/02/21 09/02/21 09/02/21 Range/Units 06:40 07:56 07:56 WBC 12.5 H (3.8-10.6) k/uL RBC 3.38 L (3.80-5.40) m/uL Hgb 9.7 L (11.4-16.0) gm/dL Hct 31.9 L (34.0-46.0) % MCHC 30.3 L (31.0-37.0) g/dL RDW 15.8 H (11.5-15.5) % Neutrophils # 10.3 H (1.3-7.7) k/uL BUN 61 H (7-17) mg/dL Creatinine 1.47 H (0.52-1.04) mg/dL Glucose 119 H (74-99) mg/dL POC Glucose (mg/dL) 174 H (70-110) mg/dL Calcium 7.9 L (8.4-10.2) mg/dL AST 183 H (14-36) U/L ALT 252 H (4-34) U/L Total Protein 5.9 L (6.3-8.2) g/dL Albumin 2.9 L (3.5-5.0) g/dL 09/02/21 Range/Units 11:15 WBC (3.8-10.6) k/uL RBC (3.80-5.40) m/uL Hgb (11.4-16.0) gm/dL Hct (34.0-46.0) % MCHC (31.0-37.0) g/dL RDW (11.5-15.5) % Neutrophils # (1.3-7.7) k/uL BUN (7-17) mg/dL Creatinine (0.52-1.04) mg/dL Glucose (74-99) mg/dL POC Glucose (mg/dL) 185 H (70-110) mg/dL Calcium (8.4-10.2) mg/dL AST (14-36) U/L ALT (4-34) U/L Total Protein (6.3-8.2) g/dL Albumin (3.5-5.0) g/dL Microbiology - Last 24 Hours (Table) 08/30/21 00:51 Blood Culture - Preliminary Blood No Growth after 72 hours
[2021-09-02 16:29] LABS: Glucose,Whole Blood 233 mg/dL (70-110)
[2021-09-02 20:59] LABS: Glucose,Whole Blood 163 mg/dL (70-110)
[2021-09-02] MEDS: INSULIN DETEMIR (LEVEMIR) 100 UNIT/ML SYR SQ SCH (22:14)
[2021-09-03 03:12] LABS: Glucose,Whole Blood 77 mg/dL (70-110)
[2021-09-03 06:50] LABS: Glucose,Whole Blood 84 mg/dL (70-110)
[2021-09-03] MEDS: INSULIN ASPART (NovoLOG) 100 UNIT/ML VIAL SQ SCH ×8 (08:03→21:38)
[2021-09-03] MEDS: SODIUM CHLORIDE 0.9% 1,000 ML IV SCH (08:43)
[2021-09-03] MEDS: ACETAMINOPHEN TAB 325 MG TAB PO PRN ×2 (09:21→18:03)
--- NOTE | 2021-09-03 10:21 | P.PN ---
Subjective Patient is seen in follow-up for acute kidney injury on chronic kidney disease. Renal function improving. No active bleeding. Receiving IV fluids. Nonoliguric. On antibiotics for UTI. No active complaints. Vital signs are stable. General: No acute distress. HEENT: Head exam is unremarkable. LUNGS: Breath sounds decreased. HEART: Rate and Rhythm are regular. ABDOMEN: Soft, no distention. EXTREMITITES: No edema. Objective - Vital Signs Vital signs: Vital Signs Temp 98.1 F 09/03/21 07:30 Pulse 68 09/03/21 07:30 Resp 18 09/03/21 07:45 BP 105/42 09/03/21 07:30 Pulse Ox 100 09/03/21 00:31 FiO2 Intake & Output 09/02/21 09/03/21 09/03/21 18:59 06:59 18:59 Intake Total 300 450 Output Total 509 500 Balance -209 -50 Intake: IV 300 400 Sodium Chloride 0.9% 1, 300 400 000 ml @ 50 mls/hr IV . Q20H [facility] Rx#:[id number] Intake, IV Titration 50 Amount cefTRIAXone 2 gm In 50 Sodium Chloride 0.9% 50 ml @ 100 mls/hr IVPB Q24H [facility] Rx#:[id number] Output: Urine 509 500 Other: Voiding Method Indwelling Catheter Indwelling Catheter Indwelling Catheter # Bowel Movements 1 1 - Labs CBC & Chem 7: 09/02/21 07:56 09/02/21 07:56 Labs: Abnormal Lab Results - Last 24 Hours (Table) 09/02/21 09/02/21 09/02/21 Range/Units 11:15 16:27 20:58 POC Glucose (mg/dL) 185 H 233 H 163 H (70-110) mg/dL Microbiology - Last 24 Hours (Table) 08/30/21 00:51 Blood Culture - Preliminary Blood No Growth after 96 hours Assessment and Plan Plan: Assessment: 1. Acute kidney injury secondary to ATN secondary to diuresis and infection. Creatinine 3.25 on admission and is down to 1.47. No hydronephrosis noted on CAT scan. 2. Chronic kidney disease stage IV secondary to nephrosclerosis with baseline creatinine near 2. 3. E. coli and Klebsiella UTI on antibiotics. 4. Non-ST elevated myocardial infarction. Cardiology following. Echo showed ejection fraction of 40% with moderate to severe mitral and tricuspid regurgitation. 5. Anemia of chronic kidney disease. Iron deficiency noted - status post IV iron. On Aranesp. Also concern for GI bleed. Surgery following. 6. Diabetes mellitus. 7. Metabolic acidosis secondary to acute kidney injury and IV fluids. Improved. On oral bicarb. 8. Hypovolemic hyponatremia improved with IV hydration. Improved. Plan: Maintain normal saline at 50 mL an hour. Avoid nephrotoxins. Cortisol level not low. Continue to monitor renal function and urine output. DC Loyola catheter.
[2021-09-03] MEDS: MIDODRINE 5 MG TAB PO SCH ×3 (10:59→21:38)
[2021-09-03] MEDS: PANTOPRAZOLE 40 MG/10 ML VIAL IVP SCH ×2 (11:00→21:39)
[2021-09-03] MEDS: ASPIRIN 81 MG PO SCH (11:19)
[2021-09-03] MEDS: ISOSORBIDE MONONITRATE ER 30 MG TAB.ER.24H PO SCH (11:19)
[2021-09-03] MEDS: SODIUM BICARBONATE TAB 650 MG TAB PO SCH ×3 (11:20→21:39)
[2021-09-03] MEDS: METOPROLOL TARTRATE 25 MG TAB PO SCH ×2 (11:20→21:39)
--- NOTE | 2021-09-03 11:28 | P.PN ---
Subjective This is a 76-year- old female with a past medical history of paroxysmal atrial fibrillation not on anticoagulation secondary to GI bleed, coronary artery disease status post PCI mid RCA in 2014 and mid LAD in 2019, diabetes, hypertension, dyslipidemia (intolerant to statins in the past), and congestive heart failure, recent left below knee amputation last month. She follows with Dr. Chavez. We are following the patient for NSTEMI. Patient presented to the hospital with complaints of chest discomfort and shortness of breath and subsequently was transferred to [facility] where she got admitted. Her troponin was elevated to 25. EKG did not show any significant changes. She was found to be in acute on chronic renal failure. She was optimized with medical therapy. Was on IV heparin drip, now discontinued. There was also a concern for possible GI bleed. Echocardiogram revealed a decreaed EF 40%, moderate to severe mitral and tricuspid regurgitation She is seen and examined at bedside, no acute distress. She denies any chest pain or shortness of breath. Lying flat in bed comfortably. Vital signs are stable. Yesterday labs reviewed with improvement in kidney function and liver enzymes. She is currently maintained on metoprolol tartrate 12.5mg BID and aspirin 81mg daily, midodrine 10mg TID, Imdur 30mg daily. PHYSICAL EXAMINATION Vitals reviewed CONSTITUTIONAL: No apparent distress. HEENT: Head is normocephalic. Pupils are equal, round. Sclerae anicteric. Mucous membranes of the mouth are moist. No JVD. No carotid bruit. CHEST EXAMINATION: Lungs are diminished bilaterally to auscultation. No chest wall tenderness is noted on palpation or with deep breathing. HEART EXAMINATION: Regular rate and rhythm. S1, S2 heard.Systolic murmur at apex ABDOMEN: Soft, nontender. Positive bowel sounds. EXTREMITIES:no lower extremity edema NEUROLOGIC EXAMINATION: Patient is awake, alert and oriented x3. 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 Signing provider agrees with the documented findings, assessment, and plan of care. Objective - Vital Signs Vital signs: Vital Signs Temp 97.6 F 09/03/21 00:31 Pulse 66 09/03/21 00:31 Resp 20 09/03/21 00:31 BP 123/68 09/03/21 00:31 Pulse Ox 100 09/03/21 00:31 FiO2 Intake & Output 09/02/21 09/03/21 09/03/21 18:59 06:59 18:59 Intake Total 300 450 Output Total 509 500 Balance -209 -50 Intake: IV 300 400 Sodium Chloride 0.9% 1, 300 400 000 ml @ 50 mls/hr IV . Q20H [facility] Rx#:[id number] Intake, IV Titration 50 Amount cefTRIAXone 2 gm In 50 Sodium Chloride 0.9% 50 ml @ 100 mls/hr IVPB Q24H [facility] Rx#:[id number] Output: Urine 509 500 Other: Voiding Method Indwelling Catheter Indwelling Catheter # Bowel Movements 1 1 - Labs CBC & Chem 7: 09/02/21 07:56 09/02/21 07:56 Labs: Abnormal Lab Results - Last 24 Hours (Table) 09/02/21 09/02/21 09/02/21 Range/Units 07:56 07:56 11:15 WBC 12.5 H (3.8-10.6) k/uL RBC 3.38 L (3.80-5.40) m/uL Hgb 9.7 L (11.4-16.0) gm/dL Hct 31.9 L (34.0-46.0) % MCHC 30.3 L (31.0-37.0) g/dL RDW 15.8 H (11.5-15.5) % Neutrophils # 10.3 H (1.3-7.7) k/uL BUN 61 H (7-17) mg/dL Creatinine 1.47 H (0.52-1.04) mg/dL Glucose 119 H (74-99) mg/dL POC Glucose (mg/dL) 185 H (70-110) mg/dL Calcium 7.9 L (8.4-10.2) mg/dL AST 183 H (14-36) U/L ALT 252 H (4-34) U/L Total Protein 5.9 L (6.3-8.2) g/dL Albumin 2.9 L (3.5-5.0) g/dL 09/02/21 09/02/21 Range/Units 16:27 20:58 WBC (3.8-10.6) k/uL RBC (3.80-5.40) m/uL Hgb (11.4-16.0) gm/dL Hct (34.0-46.0) % MCHC (31.0-37.0) g/dL RDW (11.5-15.5) % Neutrophils # (1.3-7.7) k/uL BUN (7-17) mg/dL Creatinine (0.52-1.04) mg/dL Glucose (74-99) mg/dL POC Glucose (mg/dL) 233 H 163 H (70-110) mg/dL Calcium (8.4-10.2) mg/dL AST (14-36) U/L ALT (4-34) U/L Total Protein (6.3-8.2) g/dL Albumin (3.5-5.0) g/dL Microbiology - Last 24 Hours (Table) 08/30/21 00:51 Blood Culture - Preliminary Blood No Growth after 96 hours
--- NOTE | 2021-09-03 11:34 | P.PN ---
Subjective Progress Note Date: 09/03/21 CHIEF COMPLAINT: GI bleeding HISTORY OF PRESENT ILLNESS: Patient is transferred out of the ICU yesterday to a regular medical floor. She denies any abdominal pain. She is complaining of discomfort at the catheter site. Nephrology has ordered for Loyola catheter be discontinued. Patient had a brown bowel movement this morning. Denies any abdominal pain. Denies any nausea vomiting. She is tolerating diet. Afebrile. Labs pending. PHYSICAL EXAM: VITAL SIGNS: Reviewed. GENERAL: Well-developed in no acute distress. ABDOMEN: Soft. Nondistended. Nontender. ASSESSMENT: 1. Acute GI bleed PLAN: -continue supportive care -Continue IV Protonix -No endoscopy is planned at this time -Continue to monitor hemoglobin Physician Furniture Painter note has been reviewed by physician. Signing provider agrees with the documented findings, assessment, and plan of care. I have personally seen and examined the patient, reviewed the [employer] /PAs history, exam and MDM and agree with the assessment and plan as written. Based on total visit time, I have performed more than 50% of the visit. As above: Patient having normal bowel movements. Loyola catheter was removed. Tolerating diet. No CBC yet. We'll sign off. Continue antiacids. Please call if needed. Objective - Vital Signs Vital signs: Vital Signs Temp 98.1 F 09/03/21 07:30 Pulse 68 09/03/21 07:30 Resp 18 09/03/21 07:45 BP 105/42 09/03/21 07:30 Pulse Ox 100 09/03/21 00:31 FiO2 Intake & Output 09/02/21 09/03/21 09/03/21 18:59 06:59 18:59 Intake Total 300 450 Output Total 509 500 Balance -209 -50 Intake: IV 300 400 Sodium Chloride 0.9% 1, 300 400 000 ml @ 50 mls/hr IV . Q20H [facility] Rx#:[id number] Intake, IV Titration 50 Amount cefTRIAXone 2 gm In 50 Sodium Chloride 0.9% 50 ml @ 100 mls/hr IVPB Q24H [facility] Rx#:[id number] Output: Urine 509 500 Other: Voiding Method Indwelling Catheter Indwelling Catheter Indwelling Catheter # Bowel Movements 1 1 - Labs CBC & Chem 7: 09/02/21 07:56 09/03/21 12:39 Labs: Abnormal Lab Results - Last 24 Hours (Table) 09/02/21 09/02/21 Range/Units 16:27 20:58 POC Glucose (mg/dL) 233 H 163 H (70-110) mg/dL Microbiology - Last 24 Hours (Table) 08/30/21 00:51 Blood Culture - Preliminary Blood No Growth after 96 hours
[2021-09-03 11:45] LABS: Glucose,Whole Blood 83 mg/dL (70-110)
[2021-09-03 12:34] VITALS: BMI 34.1
[2021-09-03 13:22] LABS: African American GFR (CKD) 44 (>60 ml/min/1.73 sqM); Anion Gap 9 mmol/L; Blood Urea Nitrogen 47 mg/dL (7-17); Calcium 7.7 mg/dL (8.4-10.2); Carbon Dioxide 23 mmol/L (22-30); Chloride 104 mmol/L (98-107); Glucose 76 mg/dL (74-99); Non-African American GFR(CKD) 38 (>60 ml/min/1.73 sqM); Sodium 136 mmol/L (137-145)
[2021-09-03 13:34] LABS: Anisocytosis Slight; Basophils % (A) 0 %; Eosinophils # (A) 0.1 k/uL (0-0.7); Eosinophils % (A) 1 %; HCT 29.3 % (34.0-46.0); Hypochromasia Marked; Lymphocytes # (A) 1.8 k/uL (1.0-4.8); Lymphocytes % (A) 17 %; MCH 29.1 pg (25.0-35.0); MCHC 30.7 g/dL (31.0-37.0); MCV 94.8 fL (80.0-100.0); Mean Platelet Volume 10.8; Monocytes # (A) 0.8 k/uL (0-1.0); Monocytes % (A) 8 %; Neutrophils # (A) 7.5 k/uL (1.3-7.7); Neutrophils % (A) 71 %; Platelet Count 175 k/uL (150-450); RBC 3.09 m/uL (3.80-5.40); RDW 16.5 % (11.5-15.5); WBC 10.6 k/uL (3.8-10.6)
[2021-09-03 16:41] LABS: Glucose,Whole Blood 298 mg/dL (70-110)
[2021-09-03] MEDS ORDERED: ATORVASTATIN 10 MG TAB PO SCH (21:00)
[2021-09-03 21:04] LABS: Glucose,Whole Blood 404 mg/dL (70-110)
[2021-09-03] MEDS: INSULIN DETEMIR (LEVEMIR) 100 UNIT/ML SYR SQ SCH (21:39)
[2021-09-04 01:53] LABS: Glucose,Whole Blood 76 mg/dL (70-110)
[2021-09-04 04:52] LABS: Anisocytosis Slight; HCT 30.2 % (34.0-46.0); Hypochromasia Marked; MCH 28.1 pg (25.0-35.0); MCHC 29.9 g/dL (31.0-37.0); Mean Platelet Volume 9.7; Platelet Count 152 k/uL (150-450); RBC 3.21 m/uL (3.80-5.40); RDW 16.1 % (11.5-15.5); WBC 12.6 k/uL (3.8-10.6)
[2021-09-04 05:11] LABS: ALT 131 U/L (4-34); AST 40 U/L (14-36); African American GFR (CKD) 49 (>60 ml/min/1.73 sqM); Albumin 2.6 g/dL (3.5-5.0); Alkaline Phosphatase 87 U/L (38-126); Anion Gap 7 mmol/L; Blood Urea Nitrogen 43 mg/dL (7-17); Calcium 7.8 mg/dL (8.4-10.2); Carbon Dioxide 23 mmol/L (22-30); Chloride 106 mmol/L (98-107); Globulin 2.7 g/dL; Non-African American GFR(CKD) 42 (>60 ml/min/1.73 sqM); Potassium 3.8 mmol/L (3.5-5.1); Sodium 136 mmol/L (137-145); Total Bilirubin 0.5 mg/dL (0.2-1.3); Total Protein 5.3 g/dL (6.3-8.2)
[2021-09-04 05:24] LABS: Glucose 31 mg/dL (74-99)
[2021-09-04] MEDS ORDERED: DEXTROSE 50% SYRINGE 50 ML IVP ONE (05:28)
[2021-09-04 05:40] LABS: Glucose,Whole Blood 32 mg/dL (70-110)
[2021-09-04 05:54] LABS: Glucose,Whole Blood 51 mg/dL (70-110)
[2021-09-04 06:14] LABS: Glucose,Whole Blood 62 mg/dL (70-110)
[2021-09-04 06:43] LABS: Glucose,Whole Blood 47 mg/dL (70-110)
[2021-09-04 06:43] LABS: Glucose,Whole Blood 35 mg/dL (70-110)
[2021-09-04 06:48] LABS: Glucose,Whole Blood 63 mg/dL (70-110)
[2021-09-04 07:01] LABS: Band Neutrophils % 5 %; Eosinophils # (M) 0.38 k/uL (0-0.7); Lymphocytes # (M) 2.77 k/uL (1.0-4.8); Metamyelocytes # (M) 0.13 k/uL (0); Metamyelocytes % 1 %; Monocytes # (M) 1.13 k/uL (0-1.0); Myelocytes # (M) 0.13 k/uL (0); Myelocytes % 1 %; Neutrophils % (M) 61 %; Nucleated Red Blood Cells 0 /100 WBC (0-0); Total Cells Counted 200
[2021-09-04 07:02] LABS: Large Platelets Present
[2021-09-04 07:03] LABS: Polychromasia Present
[2021-09-04 07:05] LABS: Poikilocytosis (M) Present
[2021-09-04 07:10] LABS: Glucose,Whole Blood 80 mg/dL (70-110)
[2021-09-04] MEDS: INSULIN ASPART (NovoLOG) 100 UNIT/ML VIAL SQ SCH ×2 (07:58→11:51)
[2021-09-04 08:06] LABS: Glucose,Whole Blood 137 mg/dL (70-110)
[2021-09-04] MEDS: METOPROLOL TARTRATE 25 MG TAB PO SCH (08:06)
[2021-09-04] MEDS: SODIUM BICARBONATE TAB 650 MG TAB PO SCH (08:06)
[2021-09-04] MEDS: ISOSORBIDE MONONITRATE ER 30 MG TAB.ER.24H PO SCH (08:06)
[2021-09-04] MEDS: SODIUM CHLORIDE 0.9% 1,000 ML IV SCH (08:06)
[2021-09-04] MEDS: ASPIRIN 81 MG PO SCH (08:06)
[2021-09-04] MEDS: PANTOPRAZOLE 40 MG/10 ML VIAL IVP SCH (08:06)
[2021-09-04] MEDS: MIDODRINE 5 MG TAB PO SCH ×2 (08:07→16:52)
--- NOTE | 2021-09-04 08:59 | P.PN ---
Subjective Patient is seen in follow-up for acute kidney injury on chronic kidney disease. Renal function improving. Receiving IV fluids. Nonoliguric. On antibiotics for UTI. No active complaints. Wants to go home. Vital signs are stable. General: No acute distress. HEENT: Head exam is unremarkable. LUNGS: Breath sounds decreased. HEART: Rate and Rhythm are regular. ABDOMEN: Soft, no distention. EXTREMITITES: No edema. Objective - Vital Signs Vital signs: Vital Signs Temp 97.3 F L 09/04/21 08:00 Pulse 64 09/04/21 08:00 Resp 16 09/04/21 08:00 BP 135/71 09/04/21 08:00 Pulse Ox 97 09/04/21 08:00 FiO2 Intake & Output 09/03/21 09/04/21 09/04/21 18:59 06:59 18:59 Intake Total 600 Output Total 350 300 Balance -350 300 Weight 79.3 kg Intake: IV 550 Sodium Chloride 0.9% 1, 550 000 ml @ 50 mls/hr IV . Q20H [facility] Rx#:[id number] Intake, IV Titration 50 Amount cefTRIAXone 2 gm In 50 Sodium Chloride 0.9% 50 ml @ 100 mls/hr IVPB Q24H [facility] Rx#:[id number] Output: Urine 350 300 Other: Voiding Method Indwelling Catheter External Catheter # Bowel Movements 1 - Labs CBC & Chem 7: 09/04/21 04:25 09/04/21 04:25 Labs: Abnormal Lab Results - Last 24 Hours (Table) 09/03/21 09/03/21 09/03/21 Range/Units 12:39 12:39 16:40 WBC (3.8-10.6) k/uL RBC 3.09 L (3.80-5.40) m/uL Hgb 9.0 L (11.4-16.0) gm/dL Hct 29.3 L (34.0-46.0) % MCHC 30.7 L (31.0-37.0) g/dL RDW 16.5 H (11.5-15.5) % Neutrophils # (Manual) (1.3-7.7) k/uL Monocytes # (Manual) (0-1.0) k/uL Metamyelocytes # (Man) (0) k/uL Myelocytes # (Manual) (0) k/uL Sodium 136 L (137-145) mmol/L BUN 47 H (7-17) mg/dL Creatinine 1.33 H (0.52-1.04) mg/dL Glucose (74-99) mg/dL POC Glucose (mg/dL) 298 H (70-110) mg/dL Calcium 7.7 L (8.4-10.2) mg/dL AST (14-36) U/L ALT (4-34) U/L Total Protein (6.3-8.2) g/dL Albumin (3.5-5.0) g/dL 09/03/21 09/04/21 09/04/21 Range/Units 21:02 04:25 04:25 WBC 12.6 H (3.8-10.6) k/uL RBC 3.21 L (3.80-5.40) m/uL Hgb 9.0 L (11.4-16.0) gm/dL Hct 30.2 L (34.0-46.0) % MCHC 29.9 L (31.0-37.0) g/dL RDW 16.1 H (11.5-15.5) % Neutrophils # (Manual) 8.30 H (1.3-7.7) k/uL Monocytes # (Manual) 1.13 H (0-1.0) k/uL Metamyelocytes # (Man) 0.13 H (0) k/uL Myelocytes # (Manual) 0.13 H (0) k/uL Sodium 136 L (137-145) mmol/L BUN 43 H (7-17) mg/dL Creatinine 1.23 H (0.52-1.04) mg/dL Glucose 31 L* (74-99) mg/dL POC Glucose (mg/dL) 404 H (70-110) mg/dL Calcium 7.8 L (8.4-10.2) mg/dL AST 40 H (14-36) U/L ALT 131 H (4-34) U/L Total Protein 5.3 L (6.3-8.2) g/dL Albumin 2.6 L (3.5-5.0) g/dL 09/04/21 09/04/21 09/04/21 Range/Units 05:29 05:53 06:12 WBC (3.8-10.6) k/uL RBC (3.80-5.40) m/uL Hgb (11.4-16.0) gm/dL Hct (34.0-46.0) % MCHC (31.0-37.0) g/dL RDW (11.5-15.5) % Neutrophils # (Manual) (1.3-7.7) k/uL Monocytes # (Manual) (0-1.0) k/uL Metamyelocytes # (Man) (0) k/uL Myelocytes # (Manual) (0) k/uL Sodium (137-145) mmol/L BUN (7-17) mg/dL Creatinine (0.52-1.04) mg/dL Glucose (74-99) mg/dL POC Glucose (mg/dL) 32 L 51 L 62 L (70-110) mg/dL Calcium (8.4-10.2) mg/dL AST (14-36) U/L ALT (4-34) U/L Total Protein (6.3-8.2) g/dL Albumin (3.5-5.0) g/dL 09/04/21 09/04/21 09/04/21 Range/Units 06:30 06:31 06:47 WBC (3.8-10.6) k/uL RBC (3.80-5.40) m/uL Hgb (11.4-16.0) gm/dL Hct (34.0-46.0) % MCHC (31.0-37.0) g/dL RDW (11.5-15.5) % Neutrophils # (Manual) (1.3-7.7) k/uL Monocytes # (Manual) (0-1.0) k/uL Metamyelocytes # (Man) (0) k/uL Myelocytes # (Manual) (0) k/uL Sodium (137-145) mmol/L BUN (7-17) mg/dL Creatinine (0.52-1.04) mg/dL Glucose (74-99) mg/dL POC Glucose (mg/dL) 47 L 35 L 63 L (70-110) mg/dL Calcium (8.4-10.2) mg/dL AST (14-36) U/L ALT (4-34) U/L Total Protein (6.3-8.2) g/dL Albumin (3.5-5.0) g/dL 09/04/21 Range/Units 08:05 WBC (3.8-10.6) k/uL RBC (3.80-5.40) m/uL Hgb (11.4-16.0) gm/dL Hct (34.0-46.0) % MCHC (31.0-37.0) g/dL RDW (11.5-15.5) % Neutrophils # (Manual) (1.3-7.7) k/uL Monocytes # (Manual) (0-1.0) k/uL Metamyelocytes # (Man) (0) k/uL Myelocytes # (Manual) (0) k/uL Sodium (137-145) mmol/L BUN (7-17) mg/dL Creatinine (0.52-1.04) mg/dL Glucose (74-99) mg/dL POC Glucose (mg/dL) 137 H (70-110) mg/dL Calcium (8.4-10.2) mg/dL AST (14-36) U/L ALT (4-34) U/L Total Protein (6.3-8.2) g/dL Albumin (3.5-5.0) g/dL Microbiology - Last 24 Hours (Table) 08/30/21 00:51 Blood Culture - Preliminary Blood No Growth after 120 hours Assessment and Plan Plan: Assessment: 1. Acute kidney injury secondary to ATN secondary to diuresis and infection. Creatinine 3.25 on admission and is down to 1.23. No hydronephrosis noted on CAT scan. 2. Chronic kidney disease stage IV secondary to nephrosclerosis with baseline creatinine near 2. 3. E. coli and Klebsiella UTI on antibiotics. 4. Non-ST elevated myocardial infarction. Cardiology following. Echo showed ejection fraction of 40% with moderate to severe mitral and tricuspid regurgitation. 5. Anemia of chronic kidney disease. Iron deficiency noted - status post IV iron. On Aranesp. Also concern for GI bleed. Surgery following. 6. Diabetes mellitus. 7. Metabolic acidosis secondary to acute kidney injury and IV fluids. Imp roved. On oral bicarb. 8. Hypovolemic hyponatremia improved with IV hydration. Plan: Hep-Lock IV fluids. Avoid nephrotoxins. Cortisol level not low. Continue to monitor renal function and urine output. Loyola catheter removed. Repeat BMP and magnesium level 2-3 days postdischarge. Follow up outpatient in 1 week.
[2021-09-04] MEDS ORDERED: SODIUM BICARBONATE TAB 650 MG TAB PO SCH (09:00)
--- NOTE | 2021-09-04 09:57 | P.PN ---
Subjective This is a 76-year- old female with a past medical history of paroxysmal atrial fibrillation not on anticoagulation secondary to GI bleed, coronary artery disease status post PCI mid RCA in 2014 and mid LAD in 2019, diabetes, hypertension, dyslipidemia (intolerant to statins in the past), and congestive heart failure, recent left below knee amputation last month. She follows with Dr. Chavez. We are following the patient for NSTEMI. Patient presented to the hospital with complaints of chest discomfort and shortness of breath and subsequently was transferred to [facility] where she got admitted. Her troponin was elevated to 25. EKG did not show any significant changes. She was found to be in acute on chronic renal failure. She was optimized with medical therapy. Was on IV heparin drip, now discontinued. There was also a concern for possible GI bleed. Echocardiogram revealed a decreaed EF 40%, moderate to severe mitral and tricuspid regurgitation She is seen and examined at bedside, no acute distress. She denies any chest pain or shortness of breath. Lying flat in bed comfortably. Vital signs are stable. Kidney function is improving. She was hypoglycemic overnight with blood sugars in the 30s, which have improved. She is currently maintained on metoprolol tartrate 25mg BID and aspirin 81mg daily, midodrine 10mg TID, Imdur 30mg daily, atorvastatin 10mg daily PHYSICAL EXAMINATION Vitals reviewed CONSTITUTIONAL: No apparent distress. HEENT: Head is normocephalic. No JVD. No CHEST EXAMINATION: Lungs are diminished bilaterally to auscultation. No chest wall tenderness is noted on palpation or with deep breathing. HEART EXAMINATION: Regular rate and rhythm. S1, S2 heard.Systolic murmur at apex ABDOMEN: Soft, nontender. Positive bowel sounds. EXTREMITIES:no lower extremity edema NEUROLOGIC EXAMINATION: Patient is awake, alert and oriented x3. 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 Discharge per primary and clearance from other consultants. Recommended follow- up with Dr. Chavez in the office in one week patient has appointment on September 11, 2021. Nurse practitioner note has been reviewed by physician. Signing provider agrees with the documented findings, assessment, and plan of care. Objective - Vital Signs Vital signs: Vital Signs Temp 97.3 F L 09/04/21 08:00 Pulse 64 09/04/21 08:00 Resp 16 09/04/21 08:00 BP 135/71 09/04/21 08:00 Pulse Ox 97 09/04/21 08:00 FiO2 Intake & Output 09/03/21 09/04/21 09/04/21 18:59 06:59 18:59 Intake Total 600 Output Total 350 300 Balance -350 300 Weight 79.3 kg Intake: IV 550 Sodium Chloride 0.9% 1, 550 000 ml @ 50 mls/hr IV . Q20H [facility] Rx#:[id number] Intake, IV Titration 50 Amount cefTRIAXone 2 gm In 50 Sodium Chloride 0.9% 50 ml @ 100 mls/hr IVPB Q24H [facility] Rx#:[id number] Output: Urine 350 300 Other: Voiding Method Indwelling Catheter External Catheter # Bowel Movements 1 - Labs CBC & Chem 7: 09/04/21 04:25 09/04/21 04:25 Labs: Abnormal Lab Results - Last 24 Hours (Table) 09/03/21 09/03/21 09/03/21 Range/Units 12:39 12:39 16:40 WBC (3.8-10.6) k/uL RBC 3.09 L (3.80-5.40) m/uL Hgb 9.0 L (11.4-16.0) gm/dL Hct 29.3 L (34.0-46.0) % MCHC 30.7 L (31.0-37.0) g/dL RDW 16.5 H (11.5-15.5) % Neutrophils # (Manual) (1.3-7.7) k/uL Monocytes # (Manual) (0-1.0) k/uL Metamyelocytes # (Man) (0) k/uL Myelocytes # (Manual) (0) k/uL Sodium 136 L (137-145) mmol/L BUN 47 H (7-17) mg/dL Creatinine 1.33 H (0.52-1.04) mg/dL Glucose (74-99) mg/dL POC Glucose (mg/dL) 298 H (70-110) mg/dL Calcium 7.7 L (8.4-10.2) mg/dL AST (14-36) U/L ALT (4-34) U/L Total Protein (6.3-8.2) g/dL Albumin (3.5-5.0) g/dL 09/03/21 09/04/21 09/04/21 Range/Units 21:02 04:25 04:25 WBC 12.6 H (3.8-10.6) k/uL RBC 3.21 L (3.80-5.40) m/uL Hgb 9.0 L (11.4-16.0) gm/dL Hct 30.2 L (34.0-46.0) % MCHC 29.9 L (31.0-37.0) g/dL RDW 16.1 H (11.5-15.5) % Neutrophils # (Manual) 8.30 H (1.3-7.7) k/uL Monocytes # (Manual) 1.13 H (0-1.0) k/uL Metamyelocytes # (Man) 0.13 H (0) k/uL Myelocytes # (Manual) 0.13 H (0) k/uL Sodium 136 L (137-145) mmol/L BUN 43 H (7-17) mg/dL Creatinine 1.23 H (0.52-1.04) mg/dL Glucose 31 L* (74-99) mg/dL POC Glucose (mg/dL) 404 H (70-110) mg/dL Calcium 7.8 L (8.4-10.2) mg/dL AST 40 H (14-36) U/L ALT 131 H (4-34) U/L Total Protein 5.3 L (6.3-8.2) g/dL Albumin 2.6 L (3.5-5.0) g/dL 09/04/21 09/04/21 09/04/21 Range/Units 05:29 05:53 06:12 WBC (3.8-10.6) k/uL RBC (3.80-5.40) m/uL Hgb (11.4-16.0) gm/dL Hct (34.0-46.0) % MCHC (31.0-37.0) g/dL RDW (11.5-15.5) % Neutrophils # (Manual) (1.3-7.7) k/uL Monocytes # (Manual) (0-1.0) k/uL Metamyelocytes # (Man) (0) k/uL Myelocytes # (Manual) (0) k/uL Sodium (137-145) mmol/L BUN (7-17) mg/dL Creatinine (0.52-1.04) mg/dL Glucose (74-99) mg/dL POC Glucose (mg/dL) 32 L 51 L 62 L (70-110) mg/dL Calcium (8.4-10.2) mg/dL AST (14-36) U/L ALT (4-34) U/L Total Protein (6.3-8.2) g/dL Albumin (3.5-5.0) g/dL 09/04/21 09/04/21 09/04/21 Range/Units 06:30 06:31 06:47 WBC (3.8-10.6) k/uL RBC (3.80-5.40) m/uL Hgb (11.4-16.0) gm/dL Hct (34.0-46.0) % MCHC (31.0-37.0) g/dL RDW (11.5-15.5) % Neutrophils # (Manual) (1.3-7.7) k/uL Monocytes # (Manual) (0-1.0) k/uL Metamyelocytes # (Man) (0) k/uL Myelocytes # (Manual) (0) k/uL Sodium (137-145) mmol/L BUN (7-17) mg/dL Creatinine (0.52-1.04) mg/dL Glucose (74-99) mg/dL POC Glucose (mg/dL) 47 L 35 L 63 L (70-110) mg/dL Calcium (8.4-10.2) mg/dL AST (14-36) U/L ALT (4-34) U/L Total Protein (6.3-8.2) g/dL Albumin (3.5-5.0) g/dL 09/04/21 Range/Units 08:05 WBC (3.8-10.6) k/uL RBC (3.80-5.40) m/uL Hgb (11.4-16.0) gm/dL Hct (34.0-46.0) % MCHC (31.0-37.0) g/dL RDW (11.5-15.5) % Neutrophils # (Manual) (1.3-7.7) k/uL Monocytes # (Manual) (0-1.0) k/uL Metamyelocytes # (Man) (0) k/uL Myelocytes # (Manual) (0) k/uL Sodium (137-145) mmol/L BUN (7-17) mg/dL Creatinine (0.52-1.04) mg/dL Glucose (74-99) mg/dL POC Glucose (mg/dL) 137 H (70-110) mg/dL Calcium (8.4-10.2) mg/dL AST (14-36) U/L ALT (4-34) U/L Total Protein (6.3-8.2) g/dL Albumin (3.5-5.0) g/dL Microbiology - Last 24 Hours (Table) 08/30/21 00:51 Blood Culture - Preliminary Blood No Growth after 120 hours
[2021-09-04 11:42] LABS: Glucose,Whole Blood 202 mg/dL (70-110)
--- NOTE | 2021-09-04 14:14 | P.PN ---
Subjective Progress Note Date: 09/03/21 HISTORY OF PRESENT ILLNESS: This is a 76-year-old female with a previous medical history signif icant for coronary artery disease status post PCI of the RCA back in 2013 LAD in 2019, history of peripheral vascular occlusive disease status post left foot gangrene and prior left fourth toe amputation followed by a left below-knee amputation that was done by Dr. Loyola recently, history of diabetes mellitus type 2 diabetic polyneuropathy, history of hypertension and hypertensive cardiovascular disease, hyperlipidemia, paroxysmal atrial fibrillation, history of chronic kidney disease stage for her GFR was around 23 has been under the care of nephrology, history of anemia of chronic kidney disease, history of medical debility, with other chronic medical issues patient was recently hospitalized at the [facility] after she developed to have a significant gangrenous changes of the left foot and she underwent left below-knee amputation that was done by Dr. Loyola and the patient was sent to [facility] developed to have a significant urinary retention requiring Loyola micki terization and at that time she was diagnosed with a Klebsiella pneumonia UTI as well as E. coli UTI however the patient has numerous ALLERGIES and she was placed on ciprofloxacin because ran out of options for her 250 mg orally twice every day patient did receive either 1 or 2 doses of that medicatio, patient yesterday developed to have a significant left sided chest pain associated with increased shortness of breath, she was screaming in her room yelling for help, nursing staff contacted me and I refer the patient go to the emergency department at [facility] she was found to have a troponin of 8 she was found to have an acute kidney injury and top of chronic kidney disease with se chris leukocytosis with a white count of 20,000, and significant urinary tract infection she was started on Cubicin she was given 1 dose of 480 mg and that switch to 300 mg IV piggyback every 48 hours due to the creatinine clearance, the patient was admitted to the hospital with heparin drip on board, nephrology consultation, cardiology consultation, ID consultation, patient also was noticed to have a bloody blister to the medial aspect of her left inner knee, she also does appear to have a a a dry gangrenous changes to the right big toe. 08/31: Patient is laying down in bed she is complaining of generalized weakness, she has poor appetite, or mouth is very dry, she continues to be in the ICU, she was seen earlier by Dr. enriquez the plan is to monitor the patient rate closely she may need to go for an EGD if she continues to have some more bleeding. Otherwise we will continue with conservative management, prognosis continue to be guarded Dr. richard about her poor prognosis however the patient at this time is not ready for hospice. 09/01: Patient hemoglobin appears to be stable at this time, patient has been seen in consultation by general surgery, no procedure is planned unless the hemoglobin is dropping or if the patient continues to have some more GI bleed, she is currently off heparin however she is currently on aspirin 81 mg once every day, she is maintained on metoprolol 12.5 mg twice every day, she has been seen by cardiology as well as pulmonary medicine along with infectious disease, she seems to be tolerating ceftriaxone 2 g IV piggyback every 24 hours well, we will continue to monitor the patient very closely, her creatinine is improving, her CO2 is improving, she has been on sodium bicarbonate 650 mg orally twice every day, nephrology is following as well 09/02: Patient is doing better, she continues to be weak and no further bleed at this point no planned intervention for her heart or GI work up, she will continue with same treatment and she will be moving out of the ICU. 09/03: Patient is laying down in bed in no apparent distress, she appears to be generally weak, she continues to have poor appetite, she would be transferred to [facility] tomorrow morning, she seems to have stabilized however her prognosis overall continues to be very poor. REVIEW OF SYSTEMS: Constitutional: No documented fever, no chills, no night sweats. No weight change. positive for weakness, fatigue or lethargy. No daytime sleepiness. HEENT: No headache. positive for blurred vision or double vision, no loss of vision. No loss of Hearing, no ringing in the ears, no dizziness. No nasal drainage or congestion. No epistaxis. No sore throat. Lungs: positive for shortness of breath, no cough, no sputum production. No wheezing. Reports dyspnea with activity. Cardiovascular: positive for chest pain, no lower extremity edema. No palpitations. No paroxysmal nocturnal dyspnea. No orthopnea. No lightheadedness or dizziness. No syncopal episodes. Abdominal: Reports no abdominal pain. No nausea, vomiting. No diarrhea. No constipation. No bloody or tarry stools reports loss of appetite. Genitourinary: positive for dysuria, increased frequency,does have Loyola catheter in place due to urinary retention Musculoskeletal: No myalgias. positive for muscle weakness, positive for gait dysfunction, no frequent falls. No back pain. No neck pain. Integumentary: S/P left BKA and there is bloody blister on the inner left knee, also there is dry gangrenous changes to the right big toe Neurologic: No aphasia. No facial droop. No change in mentation. No head injury. No headache. No paralysis. Psychiatric: No depression. No anxiety. No mood swings. Endocrine: abnormal blood sugars. No weight change. PHYSICAL EXAMINATION: General: 76-year-old female laying down in bed in no acute distress however she appears to be generally weak. HEENT: Head is atraumatic, normocephalic, pupils were equal round reactive to light and recommendation, extraocular muscle movement were intact, sclera nonicteric, conjunctivae were pale, mucous membranes of the mouth are somewhat dry. Neck: Supple, no JVP, decreased carotid upstroke bilaterally, no lymphadenopathy. Chest: Decreased breath sounds at the bases, few rhonchi, no expiratory wheezes, no chest wall tenderness, no intercostal retractions. Heart: First heart sound is normal, second heart sounds normal there is systolic ejection murmur 2/6. Sternal border. Abdomen: Soft, nontender, nondistended, positive bowel sounds. Extremities: There is left below-knee amputation, wound appears to be healing well approximated very well, there is a small bloody blister to the medial aspect of the left knee, right foot decreased pulses with right big toe dry gangrene. Neurologic examination: Patient is awake alert and oriented X3 , cranial nerves II-12 appear grossly intact, muscle power were 4 out of 5 in upper extremities and 3 out of 5 in bilateral lower extremities, deep tendon reflexes normal bilaterally. ASSESSMENT AND PLAN: 1. Acute non-ST elevation MT. continue metoprolol 12.5 mg orally twice every day, consider adding atorvastatin 40 mg once every day. Continue conservative approach patient is not a candidate for aggressive measures 2. Acute kidney injury and top of chronic kidney disease stage IV. Likely related to acute tubular necrosis and decreased effective blood flow to the kidneys. Continue IV fluid resuscitation, patient is not a candidate for hemodialysis, she does not want hemodialysis either. 3. Severe leukocytosis secondary to urinary tract infection with SIRS. Continue patient on ceftriaxone 2 g IV piggyback every 24 hours, urine culture showed evidence of Klebsiella pneumoniae and E. coli that is sensitive to ceftriaxone 4. Hypertension and hypertensive cardiovascular disease. Continue patient on Lopressor 12.5 mg orally twice every day. 5. Anemia of chronic kidney disease. Monitor the patient's CBC very closely co ntinue patient on Aranesp 40 MC Kai subcutaneously every 7 days. 6. Diabetes mellitus type 2 with diabetic polyneuropathy. Continue patient on Levemir 8 units as well as slight scale insulin. 7. Hyperlipidemia. Start the patient on atorvastatin 40 mg orally once every day. 8. Peripheral vascular disease status post left below-knee amputation. Stable at this time. 9. Right big toe dry gangrene. Wound care consult. 10. Elevated liver function tests likely related to surgeries and possible shock liver we'll repeat CMP in the next 24 hours. 11. Recent Klebsiella pneumoniae UTI/E. coli UTI continue ceftriaxone. 12. DVT prophylaxis. Patient is off anticoagualtion due to GI bleed. 13. GI Prophylaxis. Continue patient on Protonix 40 mg IVP bid 14. Patient is medically stable for transfer to [facility] tomorrow morning. Objective - Vital Signs Vital signs: Vital Signs Temp 98.2 F 09/03/21 14:43 Pulse 61 09/03/21 15:41 Resp 18 09/03/21 14:43 BP 119/65 09/03/21 14:43 Pulse Ox 99 09/03/21 14:43 FiO2 Intake & Output 09/02/21 09/03/21 09/03/21 18:59 06:59 18:59 Intake Total 300 450 Output Total 509 500 350 Balance -209 -50 -350 Weight 79.3 kg Intake: IV 300 400 Sodium Chloride 0.9% 1, 300 400 000 ml @ 50 mls/hr IV . Q20H GARRY Rx#:[id number] Intake, IV Titration 50 Amount cefTRIAXone 2 gm In 50 Sodium Chloride 0.9% 50 ml @ 100 mls/hr IVPB Q24H GARRY Rx#:[id number] Output: Urine 509 500 350 Other: Voiding Method Indwelling Catheter Indwelling Catheter Indwelling Catheter # Bowel Movements 1 1 - Labs CBC & Chem 7: 09/04/21 04:25 09/04/21 04:25 Labs: Abnormal Lab Results - Last 24 Hours (Table) 09/02/21 09/03/21 09/03/21 Range/Units 20:58 12:39 12:39 RBC 3.09 L (3.80-5.40) m/uL Hgb 9.0 L (11.4-16.0) gm/dL Hct 29.3 L (34.0-46.0) % MCHC 30.7 L (31.0-37.0) g/dL RDW 16.5 H (11.5-15.5) % Sodium 136 L (137-145) mmol/L BUN 47 H (7-17) mg/dL Creatinine 1.33 H (0.52-1.04) mg/dL POC Glucose (mg/dL) 163 H (70-110) mg/dL Calcium 7.7 L (8.4-10.2) mg/dL 09/03/21 Range/Units 16:40 RBC (3.80-5.40) m/uL Hgb (11.4-16.0) gm/dL Hct (34.0-46.0) % MCHC (31.0-37.0) g/dL RDW (11.5-15.5) % Sodium (137-145) mmol/L BUN (7-17) mg/dL Creatinine (0.52-1.04) mg/dL POC Glucose (mg/dL) 298 H (70-110) mg/dL Calcium (8.4-10.2) mg/dL Microbiology - Last 24 Hours (Table) 08/30/21 00:51 Blood Culture - Preliminary Blood No Growth after 96 hours
--- NOTE | 2021-09-04 14:17 | P.DS ---
Providers Date of admission: 08/29/21 21:16 Expected date of discharge: 09/04/21 Attending physician: Toshia Nesbitt Consults: 08/29/21 21:16 Consult Physician Urgent Consulting Provider: [facility] Consult Reason/Comments: nstemi Do you want consulting provider notified?: Yes Consult Physician Urgent Consulting Provider: Carol Vides Consult Reason/Comments: [email or web address]/ckd Do you want consulting provider notified?: Yes 08/29/21 21:18 Consult Physician Urgent Consulting Provider: Mira Oswald Consult Reason/Comments: uti, multiple allergies Do you want consulting provider notified?: Yes 08/31/21 10:33 Consult Physician Urgent Consulting Provider: Jarvis Robertson Consult Reason/Comments: ICU management Do you want consulting provider notified?: Already Contacted Primary care physician: Toshia Nesbitt Hospital Course: HISTORY OF PRESENT ILLNESS: This is a 76-year-old female with a previous medical history significant for coronary artery disease status post PCI of the RCA back in 2013 LAD in 2019, history of peripheral vascular occlusive disease status post left foot gangrene and prior left fourth toe amputation followed by a left below-knee amputation that was done by Dr. Loyola recently, history of diabetes mellitus type 2 diabetic polyneuropathy, history of hypertension and hypertensive cardiovascular disease, hyperlipidemia, paroxysmal atrial fibrillation, history of chronic kidney disease stage for her GFR was around 23 has been under the care of nephrology, history of anemia of chronic kidney disease, history of medical debility, with other chronic medical issues patient was recently hospitalized at the [facility] after she developed to have a significant gangrenous changes of the left foot and she underwent left below-knee amputation that was done by Dr. Loyola and the patient was sent to [facility] developed to have a significant urinary retention requiring Loyola catheterization and at that time she was diagnosed with a Klebsiella pneumonia UTI as well as E. coli UTI however the patient has numerous ALLERGIES and she was placed on ciprofloxacin because ran out of options for her 250 mg orally twice every day patient did receive either 1 or 2 doses of that medicatio, patient yesterday developed to have a significant left sided chest pain associated with increased shortness of breath, she was screaming in her room yelling for help, nursing staff contacted me and I refer the patient go to the emergency department at [facility] she was found to have a troponin of 8 she was found to have an acute kidney injury and top of chronic kidney disease with severe leukocytosis with a white count of 20,000, and significant urinary tract infection she was started on Cubicin she was given 1 dose of 480 mg and that switch to 300 mg IV piggyback every 48 hours due to the creatinine clearance, the patient was admitted to the hospital with heparin drip on board, nephrology consultation, cardiology consultation, ID consultation, patient also was noticed to have a bloody blister to the medial aspect of her left inner knee, she also does appear to have a a a dry gangrenous changes to the right big toe. 08/31: Patient is laying down in bed she is complaining of generalized weakness, she has poor appetite, or mouth is very dry, she continues to be in the ICU, she was seen earlier by Dr. enriquez the plan is to monitor the patient rate closely she may need to go for an EGD if she continues to have some more bleeding. Otherwise we will continue with conservative management, prognosis continue to be guarded Dr. richard about her poor prognosis however the patient at this time is not ready for hospice. 09/01: Patient hemoglobin appears to be stable at this time, patient has been seen in consultation by general surgery, no procedure is planned unless the hemoglobin is dropping or if the patient continues to have some more GI bleed, she is currently off heparin however she is currently on aspirin 81 mg once every day, she is maintained on metoprolol 12.5 mg twice every day, she has been seen by cardiology as well as pulmonary medicine along with infectious disease, she seems to be tolerating ceftriaxone 2 g IV piggyback every 24 hours well, we will continue to monitor the patient very closely, her creatinine is improving, her CO2 is improving, she has been on sodium bicarbonate 650 mg orally twice every day, nephrology is following as well 09/02: Patient is doing better, she continues to be weak and no further bleed at this point no planned intervention for her heart or GI work up, she will continue with same treatment and she will be moving out of the ICU. 09/03: Patient is laying down in bed in no apparent distress, she appears to be generally weak, she continues to have poor appetite, she would be transferred to [facility] tomorrow morning, she seems to have stabilized however her prognosis overall continues to be very poor. Discharge diagnoses: 1. Acute non-ST elevation AR. 2. Acute kidney injury and top of chronic kidney disease stage IV. . 3. Severe leukocytosis secondary to urinary tract infection with SIRS. 4. Hypertension and hypertensive cardiovascular disease. 5. Anemia of chronic kidney disease. 6. Diabetes mellitus type 2 with diabetic polyneuropathy. 7. Hyperlipidemia. 8. Peripheral vascular disease status post left below-knee amputation. 9. Right big toe dry gangrene. 10. Elevated liver function tests 11. Recent Klebsiella pneumoniae UTI/E. coli UTI Patient Condition at Discharge: Poor Plan - Discharge Summary Discharge Rx Participant: No New Discharge Prescriptions: No Action metOLazone [Zaroxolyn] 2.5 mg PO DAILY Metoprolol Tartrate 12.5 mg PO BID Midodrine HCl [ProAmatine] 10 mg PO TID Furosemide [Lasix] 40 mg PO DAILY Acetaminophen [Tylenol 8 Hour] 650 mg PO Q6H PRN PRN Reason: Pain Ciprofloxacin HCl [Cipro] 250 mg PO HS Insulin Detemir [Levemir Flextouch Pen] 12 units SQ HS Spironolactone 25 mg PO DAILY Insulin Aspart [Insulin Aspart Flexpen] 4 unit SQ ACHS Discharge Medication List Metoprolol Tartrate 12.5 mg PO BID 07/21/21 [History] Midodrine HCl [ProAmatine] 10 mg PO TID 07/21/21 [History] Spironolactone 25 mg PO DAILY 07/21/21 [History] metOLazone [Zaroxolyn] 2.5 mg PO DAILY 07/21/21 [History] Furosemide [Lasix] 40 mg PO DAILY 08/05/21 [History] Acetaminophen [Tylenol 8 Hour] 650 mg PO Q6H PRN 08/29/21 [History] Ciprofloxacin HCl [Cipro] 250 mg PO HS 08/29/21 [History] Insulin Aspart [Insulin Aspart Flexpen] 4 unit SQ ACHS 08/29/21 [History] Insulin Detemir [Levemir Flextouch Pen] 12 units SQ HS 08/29/21 [History] Follow up Appointment(s)/Referral(s): Toshia Nesbitt MD [Primary Care Provider] - 1-2 days Mina Chavez MD [STAFF PHYSICIAN] - 09/11/21 10:30 am
[2021-09-04 15:25] VITALS: BP 106/61; PULSE 63; RESP 17; TEMP 97.5
[2021-09-04 16:34] LABS: Glucose,Whole Blood 108 mg/dL (70-110)
[2021-09-04] MEDS: ACETAMINOPHEN TAB 325 MG TAB PO PRN (16:52)
[2021-09-04] MEDS ORDERED: INSULIN DETEMIR (LEVEMIR) 100 UNIT/ML SYR SQ SCH (21:00)
== END 2021-09-04 17:17 | DRG 280 ==
LOC: EC 15:53 → 3SCARD 21:16 → 2SICU 08-31 13:07 → 4SSUR 09-02 14:37
PROVIDERS: ADMIT Internal Medicine; ATTEND Internal Medicine
PROC: 05HA33Z Insertion of Infusion Device into Left Brachial Vein, Percutaneous Approach (ICD-10-PCS; principal; 2021-08-31 16:00)
PROC: 05H933Z Insertion of Infusion Device into Right Brachial Vein, Percutaneous Approach (ICD-10-PCS; 2021-08-31 16:00)
DX: I21.4 Non-ST elevation (NSTEMI) myocardial infarction (principal); N17.0 Acute kidney failure with tubular necrosis; E11.52 Type 2 diabetes mellitus with diabetic peripheral angiopathy with gangrene; E87.1 Hypo-osmolality and hyponatremia; E87.2 Acidosis; I13.0 Hypertensive heart and chronic kidney disease with heart failure and stage 1 through stage 4 chronic kidney disease, or unspecified chronic kidney disease; N18.4 Chronic kidney disease, stage 4 (severe); N39.0 Urinary tract infection, site not specified; I96 Gangrene, not elsewhere classified; R65.10 Systemic inflammatory response syndrome (SIRS) of non-infectious origin without acute organ dysfunction; K92.1 Melena; Z66 Do not resuscitate; T50.2X5A Adverse effect of carbonic-anhydrase inhibitors, benzothiadiazides and other diuretics, initial encounter; D50.0 Iron deficiency anemia secondary to blood loss (chronic); E11.22 Type 2 diabetes mellitus with diabetic chronic kidney disease; D63.1 Anemia in chronic kidney disease; E11.42 Type 2 diabetes mellitus with diabetic polyneuropathy; E11.621 Type 2 diabetes mellitus with foot ulcer; E11.649 Type 2 diabetes mellitus with hypoglycemia without coma; I50.9 Heart failure, unspecified; K56.41 Fecal impaction; L97.512 Non-pressure chronic ulcer of other part of right foot with fat layer exposed; I25.10 Atherosclerotic heart disease of native coronary artery without angina pectoris; X58.XXXA Exposure to other specified factors, initial encounter; R01.1 Cardiac murmur, unspecified; R29.6 Repeated falls; M19.90 Unspecified osteoarthritis, unspecified site; D69.6 Thrombocytopenia, unspecified; E78.5 Hyperlipidemia, unspecified; E86.1 Hypovolemia; I08.1 Rheumatic disorders of both mitral and tricuspid valves; B96.1 Klebsiella pneumoniae [K. pneumoniae] as the cause of diseases classified elsewhere; B96.20 Unspecified Escherichia coli [E. coli] as the cause of diseases classified elsewhere; R33.8 Other retention of urine; I25.5 Ischemic cardiomyopathy; I44.7 Left bundle-branch block, unspecified; I48.0 Paroxysmal atrial fibrillation; I25.2 Old myocardial infarction; Z79.4 Long term (current) use of insulin; Z79.82 Long term (current) use of aspirin; Z79.899 Other long term (current) drug therapy; Z80.1 Family history of malignant neoplasm of trachea, bronchus and lung; Z82.5 Family history of asthma and other chronic lower respiratory diseases; Z83.3 Family history of diabetes mellitus; Z86.74 Personal history of sudden cardiac arrest; Z88.1 Allergy status to other antibiotic agents; Z89.512 Acquired absence of left leg below knee; Z95.5 Presence of coronary angioplasty implant and graft; Z98.42 Cataract extraction status, left eye; Z98.41 Cataract extraction status, right eye; Z96.1 Presence of intraocular lens; Z89.422 Acquired absence of other left toe(s); Z88.8 Allergy status to other drugs, medicaments and biological substances; Z91.018 Allergy to other foods; Z87.891 Personal history of nicotine dependence; Z87.440 Personal history of urinary (tract) infections; Z88.0 Allergy status to penicillin; Z88.5 Allergy status to narcotic agent; Z91.040 Latex allergy status
CPT/HCPCS: 36410; 36415; 71046; 74176; 76937; 80048; 80053; 81001; 82533; 83540; 83550; 83605; 83735; 84132; 84484; 85025; 85027; 85610; 85730; 86850; 86900; 86901; 87040; 87077; 87086; 87186; 93005; 93306; 96365; 96368; 99285